=== PATIENT | female | born 1950 | race Caucasian/White ===

== ENCOUNTER → 2016-04-09 | Outpatient (CLI) | payer OTHER ==
[~2016-04-09] MED LIST: ADVIN25/60 INH; ALBU1NEB10 NEB; AMOX500C3 PO; ASPI81TA21 PO; ATOR-26 PO; BACL10TA PO; BUTA30CA12 PO; CHOL1000 PO; CHOL20009 PO; CLC100X PO; CMD5 PO; DIAZ-165 PO; DIPH25CA65 PO; DOCU100C31 PO; ENOX40IN SQ; FLNIN/ NAE; FOLI1TAB7 PO; FRS/40 PO; IPRA1AER2 INH; LEVO112T4 PO; LEVO125T4 PO; LEVO1TAB33 PO; LEVO500T19 PO; LOSA25TA18 PO; MAGN400T6 PO; METO1TAB69 PO; MRLP17X PO; NTRGSL/4 UT; NYSS/ PO; NYSS5 PO; OMEP20CA9 PO; OMEP40CA PO; OMEP40CA41 PO; ONDA4TAB46 PO; POLY335019 PO; POTA20TA16 PO; RIVA1TAB4 PO; TRAM-10 PO; WARF5TAB7 PO; ZINC1CAP PO
[2016-04-09 14:42] LABS: BASO % 0.8 %; BASO ABS # 0.09 K/uL (0-0.2); EOS % 1.4 %; HEMATOCRIT 29.3 % (37-47); IG% 0.2 %; LYMPH % 21.4 %; LYMPH ABS # 2.29 K/uL (1.2-3.4); MEAN CELL VOLUME 80.5 fL (80-100); MEAN CORPUSCULAR HEMOGLOBIN 25.5 pg (25-34); MEAN CORPUSCULAR HGB CONC 31.7 g/dl (32-36); MEAN PLATELET VOLUME 9.9 fL (7.4-10.4); MONO % 7.9 %; NEUT % 68.3 %; PLATELET COUNT 317 K/uL (130-400); RED BLOOD COUNT 3.64 M/uL (4.2-5.4); WHITE BLOOD COUNT 10.71 K/uL (4.8-10.8)
[2016-04-09 15:11] LABS: FERRITIN 13.6 ng/ml (8.0-388.0)
[2016-04-09 15:12] LABS: ACANTHOCYTES 1+; COMPLETE YES; SCHISTOCYTES OCCASIONAL; TARGET CELLS 1+
== END | disposition home or self-care (01) ==
LOC: C.LAB1850 12:47
PROVIDERS: ATTEND Internal Medicine
DX: D64.9 Anemia, unspecified (principal)

== ENCOUNTER → 2016-04-17 | Outpatient (CLI) | payer OTHER ==
--- NOTE | 2016-04-17 15:11 | DIAGNOSTIC IMAGING REPORT ---
CHEST 2 VIEWS ROUTINE CLINICAL HISTORY: Shortness of breath. Cough. COMPARISON STUDY: Chest radiograph January 04, 2015. FINDINGS: There are median sternotomy wires and surgical clips within the mediastinum and upper abdomen. Cardiomediastinal silhouette is stable. Numerous pulmonary nodules and calcified mediastinal lymph nodes are noted. These are unchanged. Small to moderate right and small left pleural effusions are similar to prior exam. There is pulmonary vascular congestion without overt pulmonary edema. IMPRESSION: 1. Small to moderate right and small left pleural effusions, similar to prior exam. 2. Pulmonary vascular congestion without overt pulmonary edema. Electronically signed by: Nguyễn Thacker M.D. 04/17/2016 3:09 PM Dictated Date/Time: 04/17/2016 3:02 PM
[2016-04-17 15:38] LABS: HEMATOCRIT 29.2 % (37-47); MEAN CORPUSCULAR HEMOGLOBIN 24.9 pg (25-34); MEAN CORPUSCULAR HGB CONC 31.2 g/dl (32-36); MEAN PLATELET VOLUME 10.2 fL (7.4-10.4); PLATELET COUNT 329 K/uL (130-400); RED BLOOD COUNT 3.65 M/uL (4.2-5.4); WHITE BLOOD COUNT 13.49 K/uL (4.8-10.8)
== END | disposition home or self-care (01) ==
LOC: C.LAB1850 14:33
PROVIDERS: ATTEND Family Medicine
DX: R06.02 Shortness of breath (principal); R05 Cough; Z11.59 Encounter for screening for other viral diseases; J90 Pleural effusion, not elsewhere classified; R09.89 Other specified symptoms and signs involving the circulatory and respiratory systems

== ENCOUNTER 2016-04-18 16:15 | Inpatient (IN) | payer OTHER ==
[~2016-04-18] VITALS: Ht 157.5 cm; Wt 57.7 kg
[~2016-04-18 16:15] MED LIST changes: -AMOX500C3 PO; -BACL10TA PO; -CHOL1000 PO; -CHOL20009 PO; -CMD5 PO; -DIPH25CA65 PO; -DOCU100C31 PO; -ENOX40IN SQ; -FOLI1TAB7 PO; -LEVO112T4 PO; -LEVO1TAB33 PO; -LEVO500T19 PO; -MAGN400T6 PO; -MRLP17X PO; -NYSS/ PO; -NYSS5 PO; -OMEP40CA PO; -OMEP40CA41 PO; -ONDA4TAB46 PO; -POLY335019 PO; -TRAM-10 PO; -WARF5TAB7 PO; -ZINC1CAP PO
--- NOTE | 2016-04-18 16:58 | EMERGENCY ROOM VISIT NOTE ---
History Report prepared by Jose: Leonel Parada Under the Supervision of: Dr. Vincent Armando M.D. First contact with patient: 16:28 Chief Complaint: WEAKNESS Stated Complaint: FLUID IN BOTH LUNGS,ANEMIA,CHF,WEAKNESS,FATIGUE History of Present Illness The patient is a 65 year old female with a history of CHF who presents to the Emergency Room with complaints of worsening generalized weakness for the past several months. The patient feels tired and feels like she is thinking slowly. The patient also complains of shortness of breath. She denies chest pain or abdominal pain. The patient was seen by her PCP yesterday, where she had unremarkable labs and a chest X-ray. The patient has a history of CHF, CAD, and cancer. She is s/p CABG. She has prescriptions for Xarelto and Lasix. Source of History: patient Onset: several months ago Position: other (generalized) Quality: other (weakness) Timing: worsening Associated Symptoms: + SOB, No abdominal pain, No chest pain Review of Systems See HPI for pertinent positives & negatives. A total of 10 systems reviewed and were otherwise negative. Past Medical & Surgical Medical Problems: (1) Acute myocardial infarction (2) chest pain, right pleural effusion (3) Diab Ene Wo Compl, Type Ii Or Unspec Type, Not Uncntrld (4) Hx-Hodgkin's Disease (5) Hypertension Nos (6) Pulmonary emboli Surgical Problems: (1) Hx of cholecystectomy (2) Hx of heart artery stent (3) Hx of splenectomy Family History Cancer Diabetes mellitus Social History Smoking Status: Current Every Day Smoker Marital Status: Housing Status: lives with family Occupation Status: employed Current/Historical Medications Scheduled Aspirin Enteric Coated (Ecotrin Or Generic), 81 MG PO HS Atorvastatin (Lipitor), 80 MG PO HS Cholecalciferol (Vitamin D3), 1,000 UNITS PO DAILY Docusate Sodium (Colace), 100 MG PO BID Fluticasone Prop/Salmeterol (Advair Diskus 250/50 60 Dose), 1 PUFF INH BID Fluticasone Propionate (Fluticasone Propionate), 2 SPRAYS MORALES DAILY Folic Acid (Folvite), 2 MG PO DAILY Furosemide (Lasix), 40 MG PO QAM Levothyroxine Sodium (Levothyroxine Sodium), 112 MCG PO DAILY Losartan Potassium (Cozaar), 25 MG PO QAM Metoprolol Succ (Toprol Xl) (Toprol-Xl ), 150 MG PO QAM Omeprazole (Prilosec), 40 MG PO DAILY Potassium Ext Rel (Klor-Con), 20 MEQ PO BID Rivaroxaban (Xarelto), 20 MG PO HS Scheduled PRN Albuterol Soln (Ventolin Soln), 1 VIAL NEB QID PRN for Cough or Wheezing Baclofen (Lioresal), 10 MG PO TID PRN for Muscle Spasms Widxcjnqpw-Sxftjns-Wjczawsx W/ (Fiorinal/Codeine #3), 1 CAP PO Q6 PRN for Headache Diazepam (Valium), 5 MG PO TID PRN for Anxiety Ipratropium-Albuterol (Combivent Respimat), 1 PUFF INH QID PRN for Shortness of Breath Nitroglycerin (Nitrostat), 0.4 MG UT UD PRN for Chest Pain Ondansetron Hcl (Zofran), 4 MG PO Q6H PRN for Nausea Tramadol (Ultram), 50 MG PO Q6 PRN for Pain Allergies Coded Allergies: Propantheline (Verified Allergy, Severe, hives and swelling and SOB ( probanthine), 10/09/14) Acetaminophen (Verified Allergy, Unknown, CAN NOT TAKE COMBINATION, ) Atropine (Verified Allergy, Unknown, 10/09/14) BEE STING (Verified Allergy, Unknown, 09/10/14) Cefaclor (Verified Allergy, Unknown, 09/10/14) Cefadroxil (Verified Allergy, Unknown, HIVES AND SWELLING, 09/10/14) Cephalosporins (Verified Allergy, Unknown, CEPHALEXIN, CEFADROXIL(DURICEF) , 09/10/14) Codeine (Verified Allergy, Unknown, CAN NOT TAKE COMBINATION, 09/10/14) Dextromethorphan (Verified Allergy, Unknown, 09/10/14) Diphenoxylate (Verified Allergy, Unknown, 09/10/14) Doxylamine (Verified Allergy, Unknown, 09/10/14) Ethanol (Verified Allergy, Unknown, unknown, 09/10/14) Gold-containing Drug Products (Verified Allergy, Unknown, 09/10/14) Iodine (Verified Allergy, Unknown, 09/10/14) Lidocaine (Verified Allergy, Unknown, WITH DENTAL PROCEDURE MAKES SLEEPY, CAN TAKE OTHER CLARISSA, 09/10/14) Meperidine (Verified Allergy, Unknown, 09/10/14) Morphine (Verified Allergy, Unknown, 09/10/14) Penicillins (Verified Allergy, Unknown, 09/10/14) Pentazocine (Verified Allergy, Unknown, 09/10/14) Propoxyphene (Verified Allergy, Unknown, 09/10/14) Pseudoephedrine (Verified Allergy, Unknown, 09/10/14) SHELLFISH (Verified Allergy, Unknown, 09/10/14) [place] (Verified Allergy, Unknown, 09/10/14) Midazolam (Verified Adverse Reaction, Intermediate, UNCOMFORTABLE MUSCLE SPASMS, 09/10/14) Adhesives (Unverified Adverse Reaction, Unknown, Steri strips blister skin , 09/10/14) Amitriptyline (Verified Adverse Reaction, Unknown, 09/10/14) Succinylcholine (Verified Adverse Reaction, Unknown, 09/10/14) Uncoded Allergies: ANECTIME (Allergy, Unknown, HAD NIECE HAD BAD REACTION AND SHE WAS TOLD NOT TO TAKE, 09/10/14) DEMEROL (Allergy, Unknown, SWELLING, 10/09/14) Physical Exam Vital Signs Date Time Temp Pulse Resp B/P Pulse Ox O2 Delivery O2 Flow Rate FiO2 04/18/16 18:20 88 24 134/71 94 Room Air 04/18/16 17:57 95 Room Air 04/18/16 17:41 95 117/50 96 Room Air 95 130/90 97 110/41 04/18/16 17:06 94 04/18/16 16:47 95 Room Air 04/18/16 16:42 95 Room Air 04/18/16 16:24 36.8 95 18 96/59 95 Room Air Physical Exam CONSTITUTIONAL: Mild respiratory distress. HEENT: No icterus, moist mucous membranes NECK: No meningismus, trachea is midline. CARDIOVASCULAR: Regular rate, normal perfusion RESPIRATORY: Unlabored breathing. Bibasilar rales. GASTROINTESTINAL: Non-tender GENITOURINARY: No flank tenderness MUSCULOSKELETAL: Full range of motion. No pedal edema. NEUROLOGIC: No acute gross focal deficits. PSYCHIATRIC: Normal affect SKIN: Normal for ethnicity. Medical Decision & Procedures ER Provider Diagnostic Interpretation: X-ray results as stated below per my interpretation and radiologist interpretation. Other radiology results as stated below per my review and radiologist interpretation. CHEST ONE VIEW PORTABLE CLINICAL HISTORY: Dyspnea. COMPARISON STUDY: Chest radiograph April 17, 2016. FINDINGS: No pneumothorax is present. Bilateral pleural effusions right larger left, persist. Calcified nodules within the lungs are noted. There are median sternotomy wires and surgical clips within the mediastinum and upper abdomen. There is pulmonary vascular congestion with possible mild pulmonary edema. IMPRESSION: 1. Moderate right and small left pleural effusions. 2. Pulmonary vascular congestion with suspected mild pulmonary edema. Electronically signed by: Nguyễn Thacker M.D. 04/18/2016 5:30 PM Dictated Date/Time: 04/18/2016 5:29 PM Laboratory Results 04/18/16 16:50 Red Blood Count 3.54, Mean Corpuscular Volume 79.1, Mean Corpuscular Hemoglobin 25.1, Mean Corpuscular Hemoglobin Concent 31.8, Mean Platelet Volume 10.0, Neutrophils (%) (Auto) 78.7, Lymphocytes (%) (Auto) 12.3, Monocytes (%) (Auto) 7.7, Eosinophils (%) (Auto) 0.6, Basophils (%) (Auto) 0.5, Neutrophils # (Auto) 10.05, Lymphocytes # (Auto) 1.58, Monocytes # (Auto) 0.99, Eosinophils # (Auto) 0.08, Basophils # (Auto) 0.07 04/18/16 16:50 Test 04/18/16 16:50 04/18/16 16:54 04/18/16 18:00 04/18/16 18:14 White Blood Count 12.80 K/uL (4.8-10.8) Red Blood Count 3.54 M/uL (4.2-5.4) Hemoglobin 8.9 g/dL (12.0-16.0) Hematocrit 28.0 % (37-47) Mean Corpuscular Volume 79.1 fL (80-100) Mean Corpuscular Hemoglobin 25.1 pg (25-34) Mean Corpuscular Hemoglobin Concent 31.8 g/dl (32-36) Platelet Count 343 K/uL (130-400) Mean Platelet Volume 10.0 fL (7.4-10.4) Neutrophils (%) (Auto) 78.7 % Lymphocytes (%) (Auto) 12.3 % Monocytes (%) (Auto) 7.7 % Eosinophils (%) (Auto) 0.6 % Basophils (%) (Auto) 0.5 % Neutrophils # (Auto) 10.05 K/uL (1.4-6.5) Lymphocytes # (Auto) 1.58 K/uL (1.2-3.4) Monocytes # (Auto) 0.99 K/uL (0.11-0.59) Eosinophils # (Auto) 0.08 K/uL (0-0.5) Basophils # (Auto) 0.07 K/uL (0-0.2) RDW Standard Deviation 50.8 fL (36.4-46.3) RDW Coefficient of Variation 17.6 % (11.5-14.5) Immature Granulocyte % (Auto) 0.2 % Immature Granulocyte # (Auto) 0.03 K/uL (0.00-0.02) Nucleated RBC Absolute Count (auto) 0.02 K/uL (0-0) Nucleated Red Blood Cells % 0.2 % Hypochromasia PRESENT Poikilocytosis PRESENT Target Cells 1+ Acanthocytes 1+ Schistocytes 1+ Prothrombin Time 14.4 SECONDS (9.0-12.0) Prothromb Time International Ratio 1.3 (0.9-1.1) Activated Partial Thromboplast Time 29.9 SECONDS (21.0-31.0) Partial Thromboplastin Ratio 1.2 Anion Gap 9.0 mmol/L (3-11) Est Creatinine Clear Calc Drug Dose 88.8 ml/min Estimated GFR () 114.9 Estimated GFR (Non- 99.1 BUN/Creatinine Ratio 23.3 (10-20) Calcium Level 9.1 mg/dl (8.5-10.1) Magnesium Level 2.1 mg/dl (1.8-2.4) Troponin I < 0.015 ng/ml (0-0.045) Pro-B-Type Natriuretic Peptide 1707 pg/ml (0-900) Labs reviewed by ED physician. ECG Indication: SOB/dyspnea Rate (beats per minute): 93 Rhythm: sinus rhythm Findings: LBBB, nonspecific-ST abn ED Course 1630: The patient was evaluated by the [place] medical student. 1647: Past medical records reviewed. The patient was evaluated in room C4. A complete history and physical examination was performed. 1810: Updated the patient. She is doing well. 1814: Discussed the case with Dr. Guzman [facility]. The patient will be evaluated. Medical Decision Differential diagnosis: CHF, viral syndrome, PE. 65-year-old presented to the emergency department for evaluation of several months of progressive worsening dyspnea, especially with exertion. She is noted to have bibasilar rales x-ray remarkable for moderate pleural effusions. Patient also noted to be anemic with elevated BNP in context of normal creatinine. Admission arrangements with Dr. Stark. Consults Time Called: 1809 Consulting Physician: Dr. Guzman [facility] Returned Call: 1814 1814: Discussed the case [facility] The patient will be evaluated. Impression Primary Impression: Pleural effusion Additional Impressions: CHF (congestive heart failure) Dyspnea Scribe Attestation The scribe's documentation has been prepared under my direction and personally reviewed by me in its entirety. I confirm that the note above accurately reflects all work, treatment, procedures, and medical decision making performed by me. Departure Information Dispostion Being Evaluated By Hospitalist Referrals Saulo Arthur M.D. (PCP) Patient Instructions My [facility] Health Problem Qualifiers
[2016-04-18 17:26] LABS: BASO % 0.5 %; BASO ABS # 0.07 K/uL (0-0.2); EOS % 0.6 %; IG% 0.2 %; LYMPH % 12.3 %; LYMPH ABS # 1.58 K/uL (1.2-3.4); MEAN CELL VOLUME 79.1 fL (80-100); MEAN CORPUSCULAR HEMOGLOBIN 25.1 pg (25-34); MEAN CORPUSCULAR HGB CONC 31.8 g/dl (32-36); MONO % 7.7 %; NEUT % 78.7 %; PLATELET COUNT 343 K/uL (130-400); RED BLOOD COUNT 3.54 M/uL (4.2-5.4)
--- NOTE | 2016-04-18 17:32 | DIAGNOSTIC IMAGING REPORT ---
CHEST ONE VIEW PORTABLE CLINICAL HISTORY: Dyspnea. COMPARISON STUDY: Chest radiograph April 17, 2016. FINDINGS: No pneumothorax is present. Bilateral pleural effusions right larger left, persist. Calcified nodules within the lungs are noted. There are median sternotomy wires and surgical clips within the mediastinum and upper abdomen. There is pulmonary vascular congestion with possible mild pulmonary edema. IMPRESSION: 1. Moderate right and small left pleural effusions. 2. Pulmonary vascular congestion with suspected mild pulmonary edema. Electronically signed by: Nguyễn Thacker M.D. 04/18/2016 5:30 PM Dictated Date/Time: 04/18/2016 5:29 PM
[2016-04-18 17:34] LABS: BLOOD UREA NITROGEN 13 mg/dl (7-18); BUN/CREATININE RATIO 23.3 (10-20); CALCIUM 9.1 mg/dl (8.5-10.1); CARBON DIOXIDE 27 mmol/L (21-32); CHLORIDE 100 mmol/L (98-107); CREATININE 0.55 mg/dl (0.60-1.20); GLUCOSE 115 mg/dl (70-99); MAGNESIUM 2.1 mg/dl (1.8-2.4); POTASSIUM 3.9 mmol/L (3.5-5.1); SODIUM 136 mmol/L (136-145)
[2016-04-18 17:41] LABS: INR 1.3 (0.9-1.1); PARTIAL THROMBOPLASTIN RATIO 1.2; PROTHROMBIN TIME (PATIENT) 14.4 SECONDS (9.0-12.0)
[2016-04-18 17:53] LABS: ACANTHOCYTES 1+; COMPLETE YES; HYPOCHROMIA PRESENT; POIKILOCYTOSIS PRESENT; SCHISTOCYTES 1+; TARGET CELLS 1+
[2016-04-18] MEDS ORDERED: CHOL1000 PO (18:09)
[2016-04-18] MEDS ORDERED: OMEP40CA PO (18:09)
[2016-04-18] MEDS ORDERED: FOLI1TAB7 PO (18:09)
[2016-04-18] MEDS ORDERED: BACL10TA PO (18:09)
[2016-04-18] MEDS ORDERED: ONDA4TAB46 PO (18:09)
[2016-04-18] MEDS ORDERED: LEVO112T4 PO (18:09)
[2016-04-18] MEDS ORDERED: TRAM-10 PO (18:09)
[2016-04-18 18:59] LABS: URINE APPEARANCE TURBID (CLEAR); URINE BILIRUBIN NEG (NEG); URINE COLOR DK YELLOW; URINE EPITHELIAL CELL AUTO 20-30 /lpf (0-5); URINE NITRITE NEG (NEG); URINE SPECIFIC GRAVITY 1.032 (1.000-1.030); UROBILINOGEN NEG (NEG); ZZUR CULT IF INDIC CLEAN CATCH NO
[2016-04-18 19:04] LABS: MANUAL MICROSCOPIC REQUIRED? NO; REVIEW REQ? YES
[2016-04-18 19:04] LABS: ALKALINE PHOSPHATASE 113 U/L (45-117); ALT/SGPT 24 U/L (12-78); AST/SGOT 21 U/L (15-37); TOTAL IRON BINDING CAPACITY 330 mcg/dl (250-450)
[2016-04-18] MEDS ORDERED: NSS + 20MEQ KCL 1000ML 1,000 ML IV SCH (19:33)
[2016-04-18] MEDS ORDERED: IPRATROPIUM BROMIDE/ALBUTEROL respimat INH INH PRN (19:45)
[2016-04-18] MEDS ORDERED: NITROGLYCERIN 0.4 MG SL PER TAB CHARGE SL PRN (19:45)
[2016-04-18] MEDS ORDERED: NITROGLYCERIN 0.4 MG SL PER TAB CHARGE UT PRN (19:45)
[2016-04-18] MEDS ORDERED: LORAZEPAM 2 MG/ML 1 ML VIAL IV PRN (19:45)
[2016-04-18] MEDS ORDERED: PANTOprazole INJ 80 MG in DEXTROSE 5% 100ML IV SCH (19:45)
[2016-04-18] MEDS ORDERED: ZOLPIDEM TARTRATE 5 MG TAB PO PRN (19:45)
[2016-04-18] MEDS ORDERED: PROMETHAZINE HCL INJ 12.5 MG in SODIUM CHLORIDE 0.9% 50ML 50 ML IV PRN (19:45)
[2016-04-18 20:09] LABS: BENZODIAZEPINE, URINE NEG (NEG); COCAINE,URINE NEG (NEG); PHENCYCLIDINE, URINE NEG (NEG)
[2016-04-18] MEDS: PANTOprazole INJ 40 MG in DEXTROSE 5% 100ML IV SCH ×2 (20:15→23:56)
[2016-04-18 20:49] LABS: HEMATOCRIT 26.6 % (37-47)
[2016-04-18] MEDS ORDERED: PHYTONADIONE INJ 5 MG in SODIUM CHLORIDE 0.9% 50ML 50 ML IV ONE (21:00)
[2016-04-18 21:30] VITALS: BP 132/69; PULSE 93; TEMP 37; O2SAT 94; Ht 157.5 cm; Wt 57.7 kg
[2016-04-18] MEDS ORDERED: ALBUMIN 25% 50 ML with FUROSEMIDE INJ 40 MG IV ONE ×2 (21:30)
--- NOTE | 2016-04-18 22:28 | History and Physical ---
History & Physical Date & Time of Service: Apr 18, 2016 at 22:06 Chief Complaint: Pleural Effusion, Upper Gi Bleed Primary Care Physician: Saulo Arthur M.D. History of Present Illness Source: patient, friend The patient is a 65 year old female who is generally worsening weakness and fatigue, shortness of breath, decline in mental acuity, swelling in bilateral lower extremities, and heart racing over the past few months, but in particular over the past few weeks. She's also recently noticed bringing up bile colored material from her stomach. She has a known history of CHF, and is taking aspirin and Xarelto daily. Past Medical/Surgical History Medical Problems: (1) Acute myocardial infarction Status: Resolved (2) chest pain, right pleural effusion Status: Resolved (3) Diab Ene Wo Compl, Type Ii Or Unspec Type, Not Uncntrld Status: Chronic (4) Hx-Hodgkin's Disease Status: Chronic (5) Hypertension Nos Status: Chronic (6) Pulmonary emboli Status: Resolved Surgical Problems: (1) Hx of cholecystectomy Status: Resolved (2) Hx of heart artery stent Status: Resolved (3) Hx of splenectomy Status: Resolved Family History Cancer Diabetes mellitus Social History Smoking Status: Current Every Day Smoker Smokeless Tobacco Use: No Alcohol Use: none Drug Use: none Marital Status: Housing status: lives with family Occupational Status: employed Immunizations History of Influenza Vaccine: Yes Influenza Vaccine Date: Jan 13, 2013 History of Tetanus Vaccine?: Yes Tetanus Immunization Date: Nov 13, 2009 History of Pneumococcal: Yes Pneumococcal Date: Jan 13, 2007 History of Hepatitis B Vaccine: Unknown Multi-Drug Resistant Organisms History of MDRO: No Allergies Coded Allergies: Propantheline (Verified Allergy, Severe, hives and swelling and SOB ( probanthine), 10/09/14) Acetaminophen (Verified Allergy, Unknown, CAN NOT TAKE COMBINATION, ) Atropine (Verified Allergy, Unknown, 10/09/14) BEE STING (Verified Allergy, Unknown, 09/10/14) Cefaclor (Verified Allergy, Unknown, 09/10/14) Cefadroxil (Verified Allergy, Unknown, HIVES AND SWELLING, 09/10/14) Cephalosporins (Verified Allergy, Unknown, CEPHALEXIN, CEFADROXIL(DURICEF) , 09/10/14) Codeine (Verified Allergy, Unknown, CAN NOT TAKE COMBINATION, 09/10/14) Dextromethorphan (Verified Allergy, Unknown, 09/10/14) Diphenoxylate (Verified Allergy, Unknown, 09/10/14) Doxylamine (Verified Allergy, Unknown, 09/10/14) Ethanol (Verified Allergy, Unknown, unknown, 09/10/14) Gold-containing Drug Products (Verified Allergy, Unknown, 09/10/14) Iodine (Verified Allergy, Unknown, 09/10/14) Lidocaine (Verified Allergy, Unknown, WITH DENTAL PROCEDURE MAKES SLEEPY, CAN TAKE OTHER CLARISSA, 09/10/14) Meperidine (Verified Allergy, Unknown, SWELLING, 04/18/16) Morphine (Verified Allergy, Unknown, 09/10/14) Penicillins (Verified Allergy, Unknown, 09/10/14) Pentazocine (Verified Allergy, Unknown, 09/10/14) Propoxyphene (Verified Allergy, Unknown, 09/10/14) Pseudoephedrine (Verified Allergy, Unknown, 09/10/14) Shellfish (Verified Allergy, Unknown, 09/10/14) [place] (Verified Allergy, Unknown, 09/10/14) Midazolam (Verified Adverse Reaction, Intermediate, UNCOMFORTABLE MUSCLE SPASMS, 09/10/14) Adhesives (Unverified Adverse Reaction, Unknown, Steri strips blister skin , 09/10/14) Amitriptyline (Verified Adverse Reaction, Unknown, 09/10/14) Succinylcholine (Verified Adverse Reaction, Unknown, SEE COMMENTS, 04/18/16 ) PER UNCODED ALLERGY INFO: HAD NIECE HAD BAD REACTION AND SHE WAS TOLD NOT TO TAKE Home Medications Scheduled Aspirin Enteric Coated (Ecotrin Or Generic), 81 MG PO HS Atorvastatin (Lipitor), 80 MG PO HS Cholecalciferol (Vitamin D3), 1,000 UNITS PO DAILY Docusate Sodium (Colace), 100 MG PO BID Fluticasone Prop/Salmeterol (Advair Diskus 250/50 60 Dose), 1 PUFF INH BID Fluticasone Propionate (Fluticasone Propionate), 2 SPRAYS MORALES DAILY Folic Acid (Folvite), 2 MG PO DAILY Furosemide (Lasix), 40 MG PO QAM Levothyroxine Sodium (Levothyroxine Sodium), 112 MCG PO DAILY Losartan Potassium (Cozaar), 25 MG PO QAM Metoprolol Succ (Toprol Xl) (Toprol-Xl ), 150 MG PO QAM Omeprazole (Prilosec), 40 MG PO DAILY Potassium Ext Rel (Klor-Con), 20 MEQ PO BID Rivaroxaban (Xarelto), 20 MG PO HS Scheduled PRN Albuterol Soln (Ventolin Soln), 1 VIAL NEB QID PRN for Cough or Wheezing Baclofen (Lioresal), 10 MG PO TID PRN for Muscle Spasms Iwlxfdjhnq-Hpeuixs-Kboogncl W/ (Fiorinal/Codeine #3), 1 CAP PO Q6 PRN for Headache Diazepam (Valium), 5 MG PO TID PRN for Anxiety Ipratropium-Albuterol (Combivent Respimat), 1 PUFF INH QID PRN for Shortness of Breath Nitroglycerin (Nitrostat), 0.4 MG UT UD PRN for Chest Pain Ondansetron Hcl (Zofran), 4 MG PO Q6H PRN for Nausea Tramadol (Ultram), 50 MG PO Q6 PRN for Pain Review of Systems The patient denies vision change, hearing change, sore throat, fevers, chills, sweats, abdominal pain, pelvic pain, blood in urine or stool, dysuria, urinary frequency or urgency, headache, rash, abnormal bruising , imbalance, focal weakness, numbness or tingling in arms or legs, arthralgias or myalgias, back or neck pain, night sweats. The review of systems is otherwise negative other than for that already noted above, and at least 10 systems have been reviewed. Physical Exam Vital Signs Date Time Temp Pulse Resp B/P Pulse Ox O2 Delivery O2 Flow Rate FiO2 04/18/16 21:30 37.0 93 26 132/69 94 Room Air 04/18/16 19:59 91 16 128/65 93 Room Air 04/18/16 18:20 88 24 134/71 94 Room Air 04/18/16 17:57 95 Room Air 04/18/16 17:41 95 117/50 96 Room Air 95 130/90 97 110/41 04/18/16 17:06 94 04/18/16 16:47 95 Room Air 04/18/16 16:42 95 Room Air 04/18/16 16:24 36.8 95 18 96/59 95 Room Air The patient is awake, alert and oriented 3, normocephalic and atraumatic, lying in bed and in no acute distress. HEENT--PERRL, EOMI, mucous membranes moist, and oropharynx normal. Neck--supple, no JVD or bruits, thyroid normal, trachea midline, no adenopathy. Heart--normal S1 and S2, no extra beats, no murmurs, rubs or gallops. Lungs--decreased breath sounds at the bases bilaterally, no respiratory distress , no accessory muscle use. Abdomen--normal bowel sounds and soft, nontender and nondistended, no hernias or masses, no organomegaly. Extremities--no cyanosis, clubbing. There is bilaterally 2+ pitting Edema. There are good distal pulses b/l. Dermatologic--normal skin turgor, normal color, warm and dry, no abnormal lymph nodes, no rash. Neurologic--cranial nerves II through XII grossly intact. Psychiatric--normal affect. Diagnostics Laboratory Results Results Past 24 Hours Test 04/18/16 16:50 04/18/16 17:30 04/18/16 19:17 04/18/16 19:40 Range/Units White Blood Count 12.80 4.8-10.8 K/uL Red Blood Count 3.54 4.2-5.4 M/uL Hemoglobin 8.9 12.0-16.0 g/dL Hematocrit 28.0 37-47 % Mean Corpuscular Volume 79.1 80-100 fL Mean Corpuscular Hemoglobin 25.1 25-34 pg Mean Corpuscular Hemoglobin Concent 31.8 32-36 g/dl Platelet Count 343 130-400 K/uL Mean Platelet Volume 10.0 7.4-10.4 fL Neutrophils (%) (Auto) 78.7 % Lymphocytes (%) (Auto) 12.3 % Monocytes (%) (Auto) 7.7 % Eosinophils (%) (Auto) 0.6 % Basophils (%) (Auto) 0.5 % Neutrophils # (Auto) 10.05 1.4-6.5 K/uL Lymphocytes # (Auto) 1.58 1.2-3.4 K/uL Monocytes # (Auto) 0.99 0.11-0.59 K/uL Eosinophils # (Auto) 0.08 0-0.5 K/uL Basophils # (Auto) 0.07 0-0.2 K/uL RDW Standard Deviation 50.8 36.4-46.3 fL RDW Coefficient of Variation 17.6 11.5-14.5 % Immature Granulocyte % (Auto) 0.2 % Immature Granulocyte # (Auto) 0.03 0.00-0.02 K/uL Nucleated RBC Absolute Count (auto) 0.02 0-0 K/uL Nucleated Red Blood Cells % 0.2 % Hypochromasia PRESENT Poikilocytosis PRESENT Target Cells 1+ Acanthocytes 1+ Schistocytes 1+ Absolute Reticulocyte Count 0.07 0.02-0.10 10^6/uL Percent Reticulocyte Count 2.1 0.5-2.0 % Prothrombin Time 14.4 9.0-12.0 SECONDS Prothromb Time International Ratio 1.3 0.9-1.1 Activated Partial Thromboplast Time 29.9 21.0-31.0 SECONDS Partial Thromboplastin Ratio 1.2 Sodium Level 136 136-145 mmol/L Potassium Level 3.9 3.5-5.1 mmol/L Chloride Level 100 98-107 mmol/L Carbon Dioxide Level 27 21-32 mmol/L Anion Gap 9.0 3-11 mmol/L Blood Urea Nitrogen 13 7-18 mg/dl Creatinine 0.55 0.60-1.20 mg/dl Est Creatinine Clear Calc Drug Dose 88.8 ml/min Estimated GFR () 114.9 Estimated GFR (Non- 99.1 BUN/Creatinine Ratio 23.3 10-20 Random Glucose 115 70-99 mg/dl Calcium Level 9.1 8.5-10.1 mg/dl Magnesium Level 2.1 1.8-2.4 mg/dl Iron Level 14 35-150 mcg/dl Total Iron Binding Capacity 330 250-450 mcg/dl Total Bilirubin 0.4 0.2-1 mg/dl Direct Bilirubin 0.1 0-0.2 mg/dl Aspartate Amino Transf (AST/SGOT) 21 15-37 U/L Alanine Aminotransferase (ALT/SGPT) 24 12-78 U/L Alkaline Phosphatase 113 45-117 U/L Troponin I < 0.015 < 0.015 0-0.045 ng/ml Pro-B-Type Natriuretic Peptide 1707 0-900 pg/ml Total Protein 7.5 6.4-8.2 gm/dl Albumin 3.0 3.4-5.0 gm/dl Urine Color DK YELLOW Urine Appearance TURBID CLEAR Urine pH 6.0 4.5-7.5 Urine Specific [place] 1.032 1.000-1.030 Urine Protein NEG NEG Urine Glucose (UA) NEG NEG Urine Ketones TRACE NEG Urine Occult Blood NEG NEG Urine Nitrite NEG NEG Urine Bilirubin NEG NEG Urine Urobilinogen NEG NEG Urine Leukocyte Esterase NEG NEG Urine WBC (Auto) 1-5 0-5 /hpf Urine RBC (Auto) 0-4 0-4 /hpf Urine Hyaline Casts (Auto) 1-5 0-5 /lpf Urine Epithelial Cells (Auto) 20-30 0-5 /lpf Urine Bacteria (Auto) NEG NEG Urine Crystals AMORPHOUS SEDIMENT NONE PRSENT Total Creatine Kinase 86 26-192 U/L Creatine Kinase MB 2.6 0.5-3.6 ng/ml Creatine Kinase MB Ratio 3.0 0-3.0 Urine Opiates Screen NEG NEG Urine Methadone, Qualitative NEG NEG Urine Barbiturates NEG NEG Urine Phencyclidine (PCP) Level NEG NEG Ur Amphetamine/Methamphetamine NEG NEG MDMA (Ecstasy) Screen NEG NEG Urine Benzodiazepines Screen NEG NEG Urine Cocaine Metabolite NEG NEG Urine Marijuana (THC) NEG NEG Test 04/18/16 20:35 Range/Units Hemoglobin 8.4 12.0-16.0 g/dL Hematocrit 26.6 37-47 % EKG EKG shows normal sinus rhythm with first-degree heart block, left bundle branch block, and early ST depressions in the lateral chest leads. Impression Assessment and Plan CAD/hypertension/history of acute [place]/history of CHF with moderately large pleural effusion on the right side and mild pleural effusion on the left side, with worsening lower extremity edema--the patient will be admitted to the telemetry unit for serial cardiac enzymes, cardiac rhythm monitoring, and a 2-D echocardiogram with Dopplers. His symptoms are likely secondary to or at least exacerbated by anemia. She'll be given albumin 25 g with Lasix 40 mg IV 1 tonight, and will consult pulmonology for consideration of thoracentesis for the a.m.. Hold aspirin 81 mg by mouth at bedtime, furosemide 40 mg by mouth every morning, losartan potassium 25 mg by mouth every morning, metoprolol succinate 150 mg by mouth every morning, potassium chloride extended release 20 mEq by mouth twice a day and Xarelto 20 mg by mouth at bedtime. She'll be placed on Lopressor 5 mg IV every 4 hours with hold for heart rate less than 60 or systolic blood pressure less than 130. GERD/Anemia with symptoms of upper GI bleed with a decrease in hemoglobin of about 3-1/2 g over the past year--the patient will be admitted to the telemetry unit, and made nothing by mouth status. She'll be placed on Protonix bolus and then drip, H&H's every 6 hours, normal saline with potassium chloride 20 mEq at 100 mils per hour, and GI consult.. We will hold her usual omeprazole 40 mg by mouth daily. Pulmonary emboli history--for now hold Xarelto as noted above. COPD--continue Advair Diskus 250/50 one inhalation twice a day, Combivent restroom at 1 puff 4 times a day when necessary, and albuterol nebulizers 4 times a day when necessary. Allergy--continue Flonase 2 sprays each nostril daily. Hypercholesterolemia--for now hold atorvastatin 80 mg by mouth at bedtime. Hypothyroidism--change levothyroxine sodium 112 g by mouth daily to 56 g IV daily. Level of Care Telemetry Advanced Directives Existing Advance Directive: No Existing Living Will: No Existing Power of Costume Designer: No Resuscitation Status FULL RESUSCITATION VTE Prophylaxis VTE Risk Assessment Done? Y/N: Yes Risk Level: Moderate Given or contraindicated: SCD's
[2016-04-18 22:30] VITALS: BP 120/68; PULSE 84; TEMP 36.8; O2SAT 97
[2016-04-18] MEDS: FLUTICASONE/SALMETEROL 250/50 (ADVAIR) 14 PUFF/1 INHALER INH SCH (22:41)
[2016-04-18 22:45] VITALS: BP 120/71; PULSE 94; TEMP 36.8; O2SAT 98
--- NOTE | 2016-04-18 22:56 | Gastroenterology Progress Note ---
Progress Note Date of Service: Apr 18, 2016 Medications Current Inpatient Medications Medications (Trade) Dose Ordered Sig/Keon Route Start Time Stop Time Status Last Admin Dose Admin Pantoprazole Sodium/Dextrose (Protonix Inj/D5 100ml) 100 ml @ 20 mls/hr Q5H IV 04/18/16 20:00 05/18/16 19:59 04/18/16 20:15 20 MLS/HR Lorazepam (Ativan Inj) 0.5 mg Q4H PRN IV 04/18/16 19:45 05/18/16 19:44 Diphenhydramine HCl 25 mg 25 mg Q4H PRN IV 04/18/16 19:45 05/18/16 19:44 Promethazine HCl/ Sodium Chloride (Phenergan Inj/ Nss 50ml) 50.5 ml @ 202 mls/hr Q4H PRN IV 04/18/16 19:45 05/18/16 19:44 Zolpidem Tartrate (Ambien Tab) 5 mg HSZ PRN PO 04/18/16 19:45 05/18/16 19:44 Ondansetron HCl (Zofran Inj) 4 mg Q6H PRN IV 04/18/16 19:45 05/18/16 19:44 Salmeterol Xinafoate/ Fluticasone (Advair Diskus 250/50 Inh) 1 puff BID INH 04/18/16 21:00 05/18/16 20:59 Fluticasone Propionate (Flonase Nasal [place]) 2 sprays DAILY MORALES 04/19/16 09:00 05/19/16 08:59 Albuterol/ Ipratropium (Combivent Respimat Inh) 1 puffs QID PRN INH 04/18/16 19:45 05/18/16 19:44 Nitroglycerin 0.4 mg 0.4 mg UD PRN UT 04/18/16 19:45 05/18/16 19:44 Levothyroxine Sodium/Syringe (Synthroid Inj/ Syringe) 2.8 ml @ 2 mls/min DAILY@09 IV 04/19/16 09:00 05/19/16 08:59 Metoprolol Tartrate (Lopressor Iv) 5 mg Q4 IV. 04/19/16 00:00 05/19/16 00:00 Objective Vital Signs Date Time Temp Pulse Resp B/P Pulse Ox O2 Delivery O2 Flow Rate FiO2 04/18/16 21:30 37.0 93 26 132/69 94 Room Air 04/18/16 19:59 91 16 128/65 93 Room Air 04/18/16 18:20 88 24 134/71 94 Room Air 04/18/16 17:57 95 Room Air 04/18/16 17:41 95 117/50 96 Room Air 95 130/90 97 110/41 04/18/16 17:06 94 04/18/16 16:47 95 Room Air 04/18/16 16:42 95 Room Air 04/18/16 16:24 36.8 95 18 96/59 95 Room Air Laboratory Results Last 24 Hours Test 04/18/16 16:50 04/18/16 17:30 04/18/16 19:17 04/18/16 19:40 White Blood Count 12.80 K/uL Red Blood Count 3.54 M/uL Hemoglobin 8.9 g/dL Hematocrit 28.0 % Mean Corpuscular Volume 79.1 fL Mean Corpuscular Hemoglobin 25.1 pg Mean Corpuscular Hemoglobin Concent 31.8 g/dl Platelet Count 343 K/uL Mean Platelet Volume 10.0 fL Neutrophils (%) (Auto) 78.7 % Lymphocytes (%) (Auto) 12.3 % Monocytes (%) (Auto) 7.7 % Eosinophils (%) (Auto) 0.6 % Basophils (%) (Auto) 0.5 % Neutrophils # (Auto) 10.05 K/uL Lymphocytes # (Auto) 1.58 K/uL Monocytes # (Auto) 0.99 K/uL Eosinophils # (Auto) 0.08 K/uL Basophils # (Auto) 0.07 K/uL RDW Standard Deviation 50.8 fL RDW Coefficient of Variation 17.6 % Immature Granulocyte % (Auto) 0.2 % Immature Granulocyte # (Auto) 0.03 K/uL Nucleated RBC Absolute Count (auto) 0.02 K/uL Nucleated Red Blood Cells % 0.2 % Hypochromasia PRESENT Poikilocytosis PRESENT Target Cells 1+ Acanthocytes 1+ Schistocytes 1+ Absolute Reticulocyte Count 0.07 10^6/uL Percent Reticulocyte Count 2.1 % Prothrombin Time 14.4 SECONDS Prothromb Time International Ratio 1.3 Activated Partial Thromboplast Time 29.9 SECONDS Partial Thromboplastin Ratio 1.2 Sodium Level 136 mmol/L Potassium Level 3.9 mmol/L Chloride Level 100 mmol/L Carbon Dioxide Level 27 mmol/L Anion Gap 9.0 mmol/L Blood Urea Nitrogen 13 mg/dl Creatinine 0.55 mg/dl Est Creatinine Clear Calc Drug Dose 88.8 ml/min Estimated GFR () 114.9 Estimated GFR (Non- 99.1 BUN/Creatinine Ratio 23.3 Random Glucose 115 mg/dl Calcium Level 9.1 mg/dl Magnesium Level 2.1 mg/dl Iron Level 14 mcg/dl Total Iron Binding Capacity 330 mcg/dl Total Bilirubin 0.4 mg/dl Direct Bilirubin 0.1 mg/dl Aspartate Amino Transf (AST/SGOT) 21 U/L Alanine Aminotransferase (ALT/SGPT) 24 U/L Alkaline Phosphatase 113 U/L Troponin I < 0.015 ng/ml < 0.015 ng/ml Pro-B-Type Natriuretic Peptide 1707 pg/ml Total Protein 7.5 gm/dl Albumin 3.0 gm/dl Urine Color DK YELLOW Urine Appearance TURBID Urine pH 6.0 Urine Specific [place] 1.032 Urine Protein NEG Urine Glucose (UA) NEG Urine Ketones TRACE Urine Occult Blood NEG Urine Nitrite NEG Urine Bilirubin NEG Urine Urobilinogen NEG Urine Leukocyte Esterase NEG Urine WBC (Auto) 1-5 /hpf Urine RBC (Auto) 0-4 /hpf Urine Hyaline Casts (Auto) 1-5 /lpf Urine Epithelial Cells (Auto) 20-30 /lpf Urine Bacteria (Auto) NEG Urine Crystals AMORPHOUS SEDIMENT Total Creatine Kinase 86 U/L Creatine Kinase MB 2.6 ng/ml Creatine Kinase MB Ratio 3.0 Urine Opiates Screen NEG Urine Methadone, Qualitative NEG Urine Barbiturates NEG Urine Phencyclidine (PCP) Level NEG Ur Amphetamine/Methamphetamine NEG MDMA (Ecstasy) Screen NEG Urine Benzodiazepines Screen NEG Urine Cocaine Metabolite NEG Urine Marijuana (THC) NEG Test 04/18/16 20:35 Hemoglobin 8.4 g/dL Hematocrit 26.6 % Assessment and Plan GI Consult dictated Microcytic anemia--Fe low but TIBC pending but looks preliminarily to be Fe deficiency. Check B12 and folate also. Pt states has significant nose bleeds with clots coming out on a daily basis so that could be etiology.Stool hemoccult pending but no report of gross blood per rectum nor melena no coffee ground or bloody emesis. Occult GI bleed is possible but until CHF resolved would not do any scopes N/V--recently and this could represent PUD. She was scheduled for outpt EGD at [facility] not sure which physician. Consider EGD when CHF managed. GERD--PPI Epistaxis--per hospitalist
[2016-04-18] MEDS: METOPROLOL TARTRATE 1 MG/ML VIAL IV. SCH (23:54)
[2016-04-18 23:59] VITALS: O2SAT 98
[2016-04-19] VITALS (16 sets, daily range): BP systolic 83–126; BP diastolic 41–69; PULSE 87–109; TEMP 36.4–37.1; O2SAT 90–99
[2016-04-19 02:06] LABS: HEMATOCRIT 27.9 % (37-47)
[2016-04-19] MEDS ORDERED: NURSING VERBAL MED ORDER ONE (02:30)
[2016-04-19] MEDS ORDERED: TRAMADOL HCL 50 MG TAB PO ONE (02:45)
[2016-04-19 03:40] LABS: INR 1.2 (0.9-1.1); PARTIAL THROMBOPLASTIN RATIO 1.1; PROTHROMBIN TIME (PATIENT) 13.3 SECONDS (9.0-12.0)
[2016-04-19 03:49] LABS: ALT/SGPT 22 U/L (12-78); AST/SGOT 20 U/L (15-37); BLOOD UREA NITROGEN 10 mg/dl (7-18); BUN/CREATININE RATIO 17.5 (10-20); CALCIUM 8.7 mg/dl (8.5-10.1); CARBON DIOXIDE 30 mmol/L (21-32); CHLORIDE 100 mmol/L (98-107); CREATININE 0.56 mg/dl (0.60-1.20); GLUCOSE 102 mg/dl (70-99); MAGNESIUM 1.9 mg/dl (1.8-2.4); POTASSIUM 3.7 mmol/L (3.5-5.1); SODIUM 138 mmol/L (136-145)
[2016-04-19] MEDS: METOPROLOL TARTRATE 1 MG/ML VIAL IV. SCH ×5 (04:00→20:00)
[2016-04-19 04:06] LABS: ALB/GLOB RATIO 0.8 (0.9-2); ALKALINE PHOSPHATASE 100 U/L (45-117); CKMB/CK RATIO 2.8 (0-3.0)
[2016-04-19] MEDS: PANTOprazole INJ 40 MG in DEXTROSE 5% 100ML IV SCH (05:02)
[2016-04-19 08:02] LABS: BASO % 0.8 %; BASO ABS # 0.09 K/uL (0-0.2); COMPLETE YES; EOS % 1.2 %; HEMATOCRIT 29.6 % (37-47); IG% 0.3 %; LYMPH ABS # 1.88 K/uL (1.2-3.4); MEAN CELL VOLUME 79.1 fL (80-100); MEAN CORPUSCULAR HEMOGLOBIN 24.9 pg (25-34); MEAN CORPUSCULAR HGB CONC 31.4 g/dl (32-36); MEAN PLATELET VOLUME 9.9 fL (7.4-10.4); MONO % 9.5 %; NEUT % 72.2 %; PLATELET COUNT 356 K/uL (130-400); RED BLOOD COUNT 3.74 M/uL (4.2-5.4); WHITE BLOOD COUNT 11.74 K/uL (4.8-10.8)
[2016-04-19] MEDS: FLUTICASONE PROPIONATE NA SPR 16 GM BTL NAE SCH (08:02)
[2016-04-19] MEDS: FLUTICASONE/SALMETEROL 250/50 (ADVAIR) 14 PUFF/1 INHALER INH SCH ×2 (08:02→21:03)
[2016-04-19] MEDS: ONDANSETRON INJ 2 MG/ML 2 ML VIAL IV PRN (08:10)
--- NOTE | 2016-04-19 08:32 | GASTROINTESTINAL CONSULTATION ---
DATE OF CONSULTATION: 04/18/2016 REQUESTING PHYSICIAN: Dr. Guzman. REASON FOR CONSULTATION: Anemia and possible upper GI bleeding. CHIEF COMPLAINT OF PATIENT: She is short of breath. HISTORY OF PRESENT ILLNESS: The patient comes in for shortness of breath and some lower extremity edema. Chest x-ray revealed pulmonary edema and pleural effusions. She has not noted any bloody stools or black stools. No abdominal pain. Possibly some recent constipation. No dysphagia. She states she lost a lot of weight about 2-1/2 years ago, stable over the last 6 months. No fever. Some nausea and vomiting recently, but bile material, no coffee grounds or gross blood. Does have a history of GERD, takes omeprazole. She is on aspirin and Xarelto. Stated she was told had a hiatal hernia in the past. She thinks she may have had some liver problems in the past. In reviewing her [facility] EMR, Dr. Corrigan saw her in November of 2011. She had choledocholithiasis and ERCP with stone removal. She had [facility] GI inpatient consult in March 2014 for nausea, vomiting, abdominal pain and small stones versus pneumobilia. The note stated she was going to get an EUS and an EGD as an outpatient, but I do not have any further records of that. She is not aware if and when she had a colonoscopy done. She did state she was supposed to get an EGD done at some point. I do see a note for unknown GI lab visit scheduled at the hospital. I do not know what physician ordered it or who would be doing that. Anyway, she comes to the ER with shortness of breath and no weakness. ALLERGIES: NUMEROUS INCLUDING PROPANTHELINE, ACETAMINOPHEN, ATROPINE, BEE STING, CEFACLOR, AND OTHER CEPHALOSPORINS, CODEINE, DEXTROMETHORPHAN, DIPHENOXYLATE, DOXYLAMINE, ETHANOL, IODINE, LIDOCAINE, MEPERIDINE, MORPHINE, PENICILLINS, PENTAZOCINE, PROPOXYPHENE, PSEUDOEPHEDRINE, SHELLFISH, [place], MIDAZOLAM, ADHESIVES, AMITRIPTYLINE, SUCCINYLCHOLINE, ANECTINE, AND DEMEROL. MEDICATIONS ON ADMISSION: Included aspirin, Lipitor, vitamin D3, Colace, Advair, fluticasone, Folvite, Lasix, levothyroxine, Cozaar, Toprol, Prilosec, potassium, Xarelto. . P.R.N. MEDICATIONS: Included Ventolin, baclofen, Fiorinal with codeine #3, Valium, Combivent, Nitrostat, Zofran, and Ultram. MEDICAL PROBLEMS: Include acute IA, chest pain, diabetes, Hodgkin's disease, hypertension, pulmonary emboli. She is status post cholecystectomy and ERCP, history of heart artery stents, history of splenectomy. FAMILY HISTORY: Diabetes. SOCIAL HISTORY: Tobacco, uses that daily. REVIEW OF SYSTEMS: CONSTITUTIONAL: Weak. EYES: Gets some blackout of one eye occasionally. ENT: She states she gets nose bleed with clots on a daily basis. CARDIOVASCULAR: Negative. RESPIRATORY: Shortness of breath. GENITOURINARY: Negative. MUSCULOSKELETAL: Arthritis. INTEGUMENTARY: Negative. NEUROLOGIC: Negative. PSYCHIATRIC: Depression. ENDOCRINE: Negative, except as above. HEMATOLOGIC: Negative except as above. PHYSICAL EXAMINATION: GENERAL: Female, appears her stated age, no acute distress. VITAL SIGNS: The most recent vital signs in the chart, temp 37, pulse 93, respirations 26, BP 132/69, O2 saturation 94%. EYES: Conjunctivae and lids normal. ENT: Oropharynx clear. NECK: Without obvious mass or thyroid enlargement. RESPIRATORY: Normal effort. Clear to anterior auscultation. CARDIOVASCULAR: Without obvious murmur. EXTREMITIES: With some edema. ABDOMEN: Positive bowel sounds, soft, nontender, no obvious organomegaly or masses are appreciated. The whole exam was with an observer present including the rectal exam. No obvious mass. Stool is brown. It will be sent to lab for evaluation for blood. LYMPH: No obvious neck or groin nodes. MUSCULOSKELETAL: Digits and nails normal. SKIN: Without obvious rash or induration. NEUROLOGIC: Cranial nerves intact. Sensation intact. PSYCHIATRIC: Recent and remote memory good. Insight and judgment good. DATA: Chest x-ray: Pulmonary edema, pleural effusions. Hemoglobin at 1650 was 8.9, and at 2034 it was 8.4. On 04/09/2016 it was 9.3. On 02/07/2016 it was 9.8. PT INR slightly elevated at 1.3. PTT normal. CMP glucose 115. BNP markedly elevated at 1707. Iron was low in current TIBC. IMPRESSION AND PLAN: 1. Microcytic anemia. Iron low with the TIBC pending, but it looks preliminarily to be iron deficiency anemia. Will check B12 and folate for completeness. She has significant nosebleeds with clots coming out on a daily basis, so that could be the etiology. A stool Hemoccult is pending, but no reported gross blood per rectum, no melena, no coffee or bloody emesis. Occult gastrointestinal bleed is possible, but until the congestive heart failure resolves, would not do any scopes. 2. Nausea, vomiting, recent, this could represent peptic disease. The patient was scheduled for outpatient EGD at [facility], not sure which physician. Consider EGD when the congestive heart failure is stable. 3. Gastroesophageal reflux disease. Proton pump inhibitor. 4. Epistaxis per hospitalist. MTDD
--- NOTE | 2016-04-19 09:03 | Progress Note ---
Subjective Date of Service: Apr 19, 2016. Subjective Pt evaluation today including: conversation w/ patient, physical exam, chart review, lab review, review of studies Problem List Medical Problems: (1) CHF (congestive heart failure) Status: Acute (2) Dyspnea Status: Acute (3) Pleural effusion Status: Acute Review of Systems Constitutional: No chills, No fatigue, No fever, No problem reported, No see HPI, No sweats, No weakness, No weight loss Eyes: No diplopia, No discharge, No eye pain, No problem reported, No redness, No see HPI, No worsening of vision ENT: No dental problems, No hearing loss, No nasal symptoms, No problem reported, No see HPI, No sore throat, No tinnitus, No trouble swallowing, No unusual epistaxis Respiratory: + cough, + shortness of breath, + sputum Cardiac: No PND, No chest pain, No claudication, No edema, No orthopnea, No palpitations, No problem reported, No see HPI Abdomen: No GI bleeding, No constipation, No diarrhea, No nausea, No pain, No problem reported, No see HPI, No vomiting Musculoskeletal: No calf pain, No joint pain, No muscle pain, No problem reported, No see HPI, No swelling Female : No abnormal vaginal bleeding, No dysuria, No hematuria, No incontinence, No problem reported, No see HPI, No urinary frequency, No vaginal discharge Neurologic: No balance problems, No memory loss, No numbness/tingling, No paralysis, No problem reported, No see HPI, No vertigo, No weakness Psychiatric: No anhedonism, No anxiety, No depression symptoms, No insomnia, No problem reported, No see HPI, No substance abuse Heme: No abnormal bleeding/bruising, No clotting problems, No night sweats, No problem reported, No see HPI, No swollen lymph nodes Endo: No excessive thirst, No excessive urination, No fatigue, No problem reported, No see HPI Skin: No bleeding, No color change, No itch, No new/changing skin lesions, No problem reported, No rash, No see HPI Medications Current Inpatient Medications Medications (Trade) Dose Ordered Sig/Keon Route Start Time Stop Time Status Last Admin Dose Admin Pantoprazole Sodium/Dextrose (Protonix Inj/D5 100ml) 100 ml @ 20 mls/hr Q5H IV 04/18/16 20:00 05/18/16 19:59 04/19/16 05:02 20 MLS/HR Lorazepam (Ativan Inj) 0.5 mg Q4H PRN IV 04/18/16 19:45 05/18/16 19:44 Diphenhydramine HCl 25 mg 25 mg Q4H PRN IV 04/18/16 19:45 05/18/16 19:44 Promethazine HCl/ Sodium Chloride (Phenergan Inj/ Nss 50ml) 50.5 ml @ 202 mls/hr Q4H PRN IV 04/18/16 19:45 05/18/16 19:44 Zolpidem Tartrate (Ambien Tab) 5 mg HSZ PRN PO 04/18/16 19:45 05/18/16 19:44 Ondansetron HCl (Zofran Inj) 4 mg Q6H PRN IV 04/18/16 19:45 05/18/16 19:44 04/19/16 08:10 4 MG Salmeterol Xinafoate/ Fluticasone (Advair Diskus 250/50 Inh) 1 puff BID INH 04/18/16 21:00 05/18/16 20:59 04/19/16 08:02 1 PUFF Fluticasone Propionate (Flonase Nasal [place]) 2 sprays DAILY MORALES 04/19/16 09:00 05/19/16 08:59 04/19/16 08:02 2 SPRAYS Albuterol/ Ipratropium (Combivent Respimat Inh) 1 puffs QID PRN INH 04/18/16 19:45 05/18/16 19:44 Nitroglycerin 0.4 mg 0.4 mg UD PRN UT 04/18/16 19:45 05/18/16 19:44 Levothyroxine Sodium/Syringe (Synthroid Inj/ Syringe) 2.8 ml @ 2 mls/min DAILY@09 IV 04/19/16 09:00 05/19/16 08:59 Metoprolol Tartrate (Lopressor Iv) 5 mg Q4 IV. 04/19/16 00:00 05/19/16 00:00 Objective Vital Signs Date Time Temp Pulse Resp B/P Pulse Ox O2 Delivery O2 Flow Rate FiO2 04/19/16 08:00 95 106/57 04/19/16 07:48 36.5 95 18 106/57 97 Nasal Cannula 2.0 04/19/16 04:00 98 Nasal Cannula 2.0 04/19/16 04:00 87 107/59 04/19/16 03:26 36.7 87 17 107/59 98 Nasal Cannula 2.0 04/19/16 00:07 36.7 87 17 126/69 98 Nasal Cannula 2.0 04/18/16 23:59 98 Nasal Cannula 2.0 04/18/16 23:54 94 126/64 04/18/16 22:45 36.8 94 22 120/71 98 Nasal Cannula 2.0 04/18/16 22:30 36.8 84 22 120/68 97 Nasal Cannula 2.0 04/18/16 21:30 37.0 93 26 132/69 94 Room Air 04/18/16 19:59 91 16 128/65 93 Room Air 04/18/16 18:20 88 24 134/71 94 Room Air 04/18/16 17:57 95 Room Air 04/18/16 17:41 95 117/50 96 Room Air 95 130/90 97 110/41 04/18/16 17:06 94 04/18/16 16:47 95 Room Air 04/18/16 16:42 95 Room Air 04/18/16 16:24 36.8 95 18 96/59 95 Room Air Physical Exam General Appearance: WD/WN, no apparent distress Eyes: normal inspection, PERRL, EOMI ENT: normal ENT inspection, hearing grossly normal Neck: supple Respiratory/Chest: chest non-tender, lungs clear, normal breath sounds, no respiratory distress, no accessory muscle use Cardiovascular: regular rate, rhythm, no edema, no gallop, no JVD, no murmur Abdomen: normal bowel sounds, non tender, soft, no organomegaly, no pulsatile mass Extremities: normal range of motion, non-tender, normal inspection, no pedal edema, no calf tenderness 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, no motor/sensory deficits, alert, normal mood/affect, oriented x 3 Skin: normal color, warm/dry, no rash Laboratory Results Last 24 Hours Test 04/18/16 16:50 04/18/16 17:30 04/18/16 19:17 04/18/16 19:40 White Blood Count 12.80 K/uL Red Blood Count 3.54 M/uL Hemoglobin 8.9 g/dL Hematocrit 28.0 % Mean Corpuscular Volume 79.1 fL Mean Corpuscular Hemoglobin 25.1 pg Mean Corpuscular Hemoglobin Concent 31.8 g/dl Platelet Count 343 K/uL Mean Platelet Volume 10.0 fL Neutrophils (%) (Auto) 78.7 % Lymphocytes (%) (Auto) 12.3 % Monocytes (%) (Auto) 7.7 % Eosinophils (%) (Auto) 0.6 % Basophils (%) (Auto) 0.5 % Neutrophils # (Auto) 10.05 K/uL Lymphocytes # (Auto) 1.58 K/uL Monocytes # (Auto) 0.99 K/uL Eosinophils # (Auto) 0.08 K/uL Basophils # (Auto) 0.07 K/uL RDW Standard Deviation 50.8 fL RDW Coefficient of Variation 17.6 % Immature Granulocyte % (Auto) 0.2 % Immature Granulocyte # (Auto) 0.03 K/uL Nucleated RBC Absolute Count (auto) 0.02 K/uL Nucleated Red Blood Cells % 0.2 % Hypochromasia PRESENT Poikilocytosis PRESENT Target Cells 1+ Acanthocytes 1+ Schistocytes 1+ Absolute Reticulocyte Count 0.07 10^6/uL Percent Reticulocyte Count 2.1 % Prothrombin Time 14.4 SECONDS Prothromb Time International Ratio 1.3 Activated Partial Thromboplast Time 29.9 SECONDS Partial Thromboplastin Ratio 1.2 Sodium Level 136 mmol/L Potassium Level 3.9 mmol/L Chloride Level 100 mmol/L Carbon Dioxide Level 27 mmol/L Anion Gap 9.0 mmol/L Blood Urea Nitrogen 13 mg/dl Creatinine 0.55 mg/dl Est Creatinine Clear Calc Drug Dose 88.8 ml/min Estimated GFR () 114.9 Estimated GFR (Non- 99.1 BUN/Creatinine Ratio 23.3 Random Glucose 115 mg/dl Calcium Level 9.1 mg/dl Magnesium Level 2.1 mg/dl Iron Level 14 mcg/dl Total Iron Binding Capacity 330 mcg/dl Total Bilirubin 0.4 mg/dl Direct Bilirubin 0.1 mg/dl Aspartate Amino Transf (AST/SGOT) 21 U/L Alanine Aminotransferase (ALT/SGPT) 24 U/L Alkaline Phosphatase 113 U/L Troponin I < 0.015 ng/ml < 0.015 ng/ml Pro-B-Type Natriuretic Peptide 1707 pg/ml Total Protein 7.5 gm/dl Albumin 3.0 gm/dl Urine Color DK YELLOW Urine Appearance TURBID Urine pH 6.0 Urine Specific [place] 1.032 Urine Protein NEG Urine Glucose (UA) NEG Urine Ketones TRACE Urine Occult Blood NEG Urine Nitrite NEG Urine Bilirubin NEG Urine Urobilinogen NEG Urine Leukocyte Esterase NEG Urine WBC (Auto) 1-5 /hpf Urine RBC (Auto) 0-4 /hpf Urine Hyaline Casts (Auto) 1-5 /lpf Urine Epithelial Cells (Auto) 20-30 /lpf Urine Bacteria (Auto) NEG Urine Crystals AMORPHOUS SEDIMENT Total Creatine Kinase 86 U/L Creatine Kinase MB 2.6 ng/ml Creatine Kinase MB Ratio 3.0 Urine Opiates Screen NEG Urine Methadone, Qualitative NEG Urine Barbiturates NEG Urine Phencyclidine (PCP) Level NEG Ur Amphetamine/Methamphetamine NEG MDMA (Ecstasy) Screen NEG Urine Benzodiazepines Screen NEG Urine Cocaine Metabolite NEG Urine Marijuana (THC) NEG Test 04/18/16 20:35 04/18/16 21:45 04/18/16 23:01 04/19/16 01:50 Hemoglobin 8.4 g/dL 8.8 g/dL Hematocrit 26.6 % 27.9 % Stool Occult Blood NEGATIVE Bedside Glucose 118 mg/dl Test 04/19/16 03:21 04/19/16 06:39 04/19/16 07:26 Prothrombin Time 13.3 SECONDS Prothromb Time International Ratio 1.2 Activated Partial Thromboplast Time 27.8 SECONDS Partial Thromboplastin Ratio 1.1 Sodium Level 138 mmol/L Potassium Level 3.7 mmol/L Chloride Level 100 mmol/L Carbon Dioxide Level 30 mmol/L Anion Gap 8.0 mmol/L Blood Urea Nitrogen 10 mg/dl Creatinine 0.56 mg/dl Est Creatinine Clear Calc Drug Dose 86.8 ml/min Estimated GFR () 114.2 Estimated GFR (Non- 98.5 BUN/Creatinine Ratio 17.5 Random Glucose 102 mg/dl Calcium Level 8.7 mg/dl Magnesium Level 1.9 mg/dl Total Bilirubin 0.4 mg/dl Direct Bilirubin 0.2 mg/dl Aspartate Amino Transf (AST/SGOT) 20 U/L Alanine Aminotransferase (ALT/SGPT) 22 U/L Alkaline Phosphatase 100 U/L Total Creatine Kinase 83 U/L Creatine Kinase MB 2.3 ng/ml Creatine Kinase MB Ratio 2.8 Troponin I < 0.015 ng/ml Total Protein 7.3 gm/dl Albumin 3.2 gm/dl Globulin 4.1 gm/dl Albumin/Globulin Ratio 0.8 Bedside Glucose 113 mg/dl White Blood Count 11.74 K/uL Red Blood Count 3.74 M/uL Hemoglobin 9.3 g/dL Hematocrit 29.6 % Mean Corpuscular Volume 79.1 fL Mean Corpuscular Hemoglobin 24.9 pg Mean Corpuscular Hemoglobin Concent 31.4 g/dl Platelet Count 356 K/uL Mean Platelet Volume 9.9 fL Neutrophils (%) (Auto) 72.2 % Lymphocytes (%) (Auto) 16.0 % Monocytes (%) (Auto) 9.5 % Eosinophils (%) (Auto) 1.2 % Basophils (%) (Auto) 0.8 % Neutrophils # (Auto) 8.49 K/uL Lymphocytes # (Auto) 1.88 K/uL Monocytes # (Auto) 1.11 K/uL Eosinophils # (Auto) 0.14 K/uL Basophils # (Auto) 0.09 K/uL RDW Standard Deviation 51.2 fL RDW Coefficient of Variation 17.8 % Immature Granulocyte % (Auto) 0.3 % Immature Granulocyte # (Auto) 0.03 K/uL Nucleated RBC Absolute Count (auto) 0.02 K/uL Nucleated Red Blood Cells % 0.2 % Assessment and Plan 65 years old smoker female presented with worsening of her chronic cough, with production of yellowish/greenish sputum. also has N/V and iron deficiency anemia. Worsening chronic cough/moderate to severe right pleural effusion with Hx of smoking; will do CT chest to better understand underlying pathology of her pleural effusion xarelto/ASA are on hold since 04/18 for possible throacocenthesis and cytology analysis (brass sorter is consulted) empiric treatment of bronchitis with Azithromycin sputum Cx COPD without significant exacerbation no wheezing , also has good air entry B/L (diminished over her pleural effusion) will do Duoneb QID scheduled dose but will hold off steroids due to lack of wheezing and it will confuse the picture of the underlying diagnosis picture compatible with CHF (unspeicifed yet, awaiting echo), congestion on CXR , elevated BNP 2-D echocardiogram with Dopplers. S/P She'll be given albumin 25 g with Lasix 40 mg IV 1 tonight, a continue losartan potassium 25 mg by mouth every morning, metoprolol succinate 150 mg by mouth every morning, potassium chloride extended release 20 mEq by mouth twice a day Lasix drip low dose / I/Os GERD/Anemia with symptoms of upper GI bleed with a decrease in hemoglobin of about 3-1/2 g over the past year- low iron, elevated TIBC, normal B12 and folate continue Protonix bolus and then drip, GI consult.appreciated Pulmonary emboli history--for now hold Xarelto as noted above. COPD--continue Advair Diskus 250/50 one inhalation twice a day, Combivent restroom at 1 puff 4 times a day when necessary, and albuterol nebulizers 4 times a day when necessary. Add Duoneb QID scheduled Allergic rhinitis--continue Flonase 2 sprays each nostril daily. Hypercholesterolemia--for now hold atorvastatin 80 mg by mouth at bedtime. Hypothyroidism--change levothyroxine sodium 112 g by mouth daily to 56 g IV daily. DVT prophylaxis heparin SQ TID, hold before thoracocenthesis DC heparin when restart xarelto
[2016-04-19] MEDS: LEVOTHYROXINE SODIUM INJ 56 MCG in SYRINGE 0 ML IV SCH (09:09)
[2016-04-19] MEDS ORDERED: GLUCOSE 10 TABS/TUBE PO PRN (09:30)
[2016-04-19] MEDS ORDERED: GLUCAGON FOR INJ 1 MG VIAL SQ PRN (09:30)
[2016-04-19] MEDS ORDERED: DEXTROSE 50% 50 ML SYR IV PRN (09:30)
[2016-04-19] MEDS ORDERED: IRON SUCROSE INJ 100 MG in SODIUM CHLORIDE 0.9% 100ML 100 ML IV ONE (09:30)
[2016-04-19] MEDS ORDERED: GLUCOSE 40% GEL 15 GM TUBE PO PRN (09:30)
[2016-04-19] MEDS ORDERED: PHARMACY GLYCEMIC MGMT CONSULT PRN (09:41)
--- NOTE | 2016-04-19 09:42 | DIAGNOSTIC IMAGING REPORT ---
CT OF THE CHEST WITHOUT IV CONTRAST CLINICAL HISTORY: Cough, pleural effusion. Annual chest x-ray. Pleural effusions. COMPARISON STUDY: CT angiography dated 02/21/2014, chest x-ray dated 02/16/2017 CT DOSE: 298.53 mGy.cm TECHNIQUE: CT of the thorax was performed from the thoracic inlet to the lung bases. Images are reviewed in the axial, sagittal, and coronal planes. IV contrast was not administered for this examination. FINDINGS: Thyroid: Imaged portions of the thyroid gland are normal in appearance. Thoracic aorta: The thoracic aorta is normal in course and caliber, noting standard 3 vessel arch anatomy. Heart: There are coronary artery calcifications present. Lungs and pleural spaces: There are moderate bilateral pleural effusions right greater than left. There are paramediastinal fibrotic changes. Does this patient have a history of prior radiation therapy? There is minimal progression in the previous identified biapical airspace opacities. There are clustered nodules within the periphery of the right lower lobe. These are likely postinflammatory. Mediastinum: There is a mildly enlarged precarinal lymph node measuring 13 mm. Anabel: Evaluation the anabel is difficult given the lack of intravenous contrast. There is right hilar fullness suspicious for mass/adenopathy. There is narrowing of the right lower lobe bronchus. Axilla: Clear. Upper abdomen: The gallbladder surgically absent. There is left perinephric stranding similar to the prior study. Skeletal structures: There are postsurgical changes of midline sternotomy. There is a stable retrosternal fluid collection, likely represent a loculated pleural fluid IMPRESSION: 1. Postsurgical changes on the right 2. Moderate bilateral pleural effusions right greater than left 3. Mildly enlarged mediastinal lymph nodes 4. Suspected right hilar mass/adenopathy with narrowing of the right lower lobe bronchus. Pulmonary consultation is recommended for possible bronchoscopic evaluation 5. Peripheral nodular opacities within the right lower lobe, likely postinflammatory 6. Slight progression in the bilateral upper lobe airspace opacities 7. Paramediastinal fibrotic changes Electronically signed by: Jeromy Torres M.D. 04/19/2016 9:40 AM Dictated Date/Time: 04/19/2016 9:29 AM
[2016-04-19] MEDS ORDERED: FUROSEMIDE INJ 100 MG in DEXTROSE 5% 100ML 90 ML IV SCH (10:00)
[2016-04-19] MEDS ORDERED: AZITHROMYCIN IV 500 MG in DEXTROSE 5% 250ML 250 ML IV SCH (10:00)
--- NOTE | 2016-04-19 10:27 | PULMONARY CONSULTATION ---
DATE OF CONSULTATION: 04/19/2016 The patient is a 65-year-old female who carries a history of recurrent pleural effusions. She was admitted through the Emergency Room with shortness of breath and generalized weakness and Dr. Guzman has asked me to evaluate the patient from a pulmonary standpoint. She had a thoracentesis done several times. The last one I can find in record was from March 2014. At that time, she had 1100 mL of serosanguineous fluid removed. The pathology revealed many mesothelial cells and the evaluation suggested it probably was an exudate with a protein of 3.9 and elevated LDH. All of the cultures have been unremarkable. She states each time she has a thoracentesis done she has marked improvement in her symptoms. She presented to the Emergency Room with shortness of breath. States she has difficulty with doing anything at home over the last 3 months because of generalized weakness and shortness of breath. She has a cough which is nonproductive. No hoarseness or chest pain, fevers or night sweats. She denies any weight loss. She was placed on oxygen and IV diuretics her and with that she had a marked improvement. She is followed by Dr. Correa for heart failure, and Dr. Molina as an outpatient now. She did have a chest x-ray done apparently yesterday as an outpatient that revealed a right pleural effusion which is similar to the previous x-ray of December 2014. Evidence of the median sternotomy is noted as well. She carries a history of coronary disease with an MD in the past, and also an anemia with the recent endoscopy performed. Nonetheless, the patient is sitting on the side of the bed, is considerably improved now. There has been no evidence of any pleural malignancy. PAST MEDICAL HISTORY: Well outlined in the records and includes an MD, recurrent bilateral pleural effusions with thoracentesis several times of the right side. This probably is an exudate. She has a history of non-Hodgkin's lymphoma, hypertension, pulmonary emboli. She has had a cholecystectomy, right heart stent, and splenectomy as well. She has had a history of pneumonia with sepsis and was admitted here in March 2014. She also had a bronchoscopy done on January 2014 and a thoracentesis at that time as well. SOCIAL HISTORY: She still smokes about half pack of cigarettes on a daily basis and has been smoking intermittently since about age 17. She is not an alcohol user. 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 ALLERGIES: NOTED IN THE RECORD AND INCLUDE MULTIPLE ALLERGIES. According to the Emergency Room record, had a history of hypertension. She is , lives with her at the present time. She carries a history of hypothyroidism, and that has been under good control as well. PHYSICAL EXAMINATION: VITAL SIGNS: Reveals her blood pressure to be 107/59, pulse is 80 and regular, respiratory rate 16. She is afebrile. Oxygen saturation is 98% on 2 liters. Her weight is 60 kilograms. When she was here in June 2014 for ectopic atrial tachycardia, she was 61.5 kilograms, so there has not been a significant weight loss over the last year or so. HEENT: Unremarkable. She did have cataract surgery in the past. NECK: There is no neck vein distention or HJR. No adenopathy is palpable anywhere. Expansion of the thorax is good with deep inspiration. HEART: Regular rate and rhythm. I do not detect any murmurs. LUNGS: Reveal decreased breath sounds bilaterally with no crackles or rales or wheezing noted. There is dullness to percussion at the right base. ABDOMEN: Soft, nontender. EXTREMITIES: She has no cyanosis, clubbing or edema. The patient apparently has had some epistaxis with microcytic anemia according to the GI note. Hemoglobin is 8.8, hematocrit 27.9%, with a white count of 12.8, platelet count of 343,000. Coagulation profile showed an INR of 1.2. Chemistry profile was unremarkable. CK enzymes and troponin are negative. I do not see an EKG in the record. BNP was just slightly elevated at 1707. A chest x-ray reveals bilateral pleural effusions, right greater than left with some pulmonary vascular congestion. It appears with the albumin and diuretics she had 2300 mL out last night with about a 2-1/2 pound weight loss. IMPRESSION: 1. Bilateral pleural effusions, right greater than left. She has had a thoracentesis several times in the right hemithorax. This may be related to some heart failure, even though it is an exudative effusion, although at the present time she has no edema, no evidence of any significant fluid overload. Certainly malignancy in a patient who already has a history of Hodgkin's disease is a possibility as well. 2. Coronary artery disease. RECOMMENDATIONS: 1. At this point, I would continue with the diuresis, follow the PRP carefully. Without significant edema she may develop a rising creatinine fairly quickly on the diuretics. 2. Evaluation with Dr. Steele for consideration for a thoracentesis and perhaps even PleurX catheter placed in the right hemithorax. I spoke with the patient regarding that and she was agreeable. She states each time she has a thoracentesis done she has a marked improvement in her overall functional capabilities. 3. Good ulcer prophylaxis. 4. Restart Xarelto 20 mg at night once a thoracentesis has been completed and evaluation by Dr. Steele is completed. Thanks for asking me to evaluate Ms. Preston. Dr. Robertson will be on starting next week.
[2016-04-19] MEDS: ALBUT/IPRATROP 3MG/0.5MG NEB 3 ML VIAL INH SCH ×3 (11:28→19:45)
[2016-04-19] MEDS: INSULIN ASPART 100 UNITS/ML 3 ML PEN SC SCH ×3 (11:52→21:00)
--- NOTE | 2016-04-19 11:54 | DIAGNOSTIC IMAGING REPORT ---
CHEST ONE VIEW PORTABLE CLINICAL HISTORY: s/p right thoracentesis COMPARISON STUDY: 04/18/2016 FINDINGS: There are postsurgical changes of a midline sternotomy. The cardiac and mediastinal contours remain stable. There are calcified left hilar and mediastinal lymph nodes. There are left lung calcified granulomas. There are multiple surgical clips within the upper abdomen. There are bilateral pleural effusions with slight decrease in the size of right pleural effusion. There is no evidence of pneumothorax status post thoracentesis.[There is stable interstitial thickening. IMPRESSION: No evidence of pneumothorax status post thoracentesis. Electronically signed by: Jeromy Torres M.D. 04/19/2016 11:53 AM Dictated Date/Time: 04/19/2016 11:51 AM
[2016-04-19 12:27] LABS: CKMB/CK RATIO 3.5 (0-3.0)
[2016-04-19 12:48] LABS: PLEURAL FLUID APPEARANCE CLOUDY; PLEURAL FLUID COLOR AMBER; PLEURAL FLUID SOURCE RIGHT LUNG; PLEURAL FLUID WBC (A) 2613 /uL
--- NOTE | 2016-04-19 12:58 | Pharmacy Progress Note ---
Glycemic Control Intl Consult Date of Service Apr 19, 2016. Scope Glycemic Pharmacist consulted by Dr Mejia Nazario on 04/19/16 for glycemic control and to write orders per [facility] inpatient glycemic control protocol Objective Weight (Kilograms): 59.000 Accuchecks BSG (last 24hrs): Test 04/18/16 16:50 04/18/16 23:01 04/19/16 03:21 04/19/16 06:39 Random Glucose 115 mg/dl (70-99) 102 mg/dl (70-99) Bedside Glucose 118 mg/dl (70-90) 113 mg/dl (70-90) Test 04/19/16 10:05 04/19/16 11:27 Bedside Glucose 112 mg/dl (70-90) 128 mg/dl (70-90) Laboratory Data (last 24hrs) Test 04/18/16 16:50 04/19/16 03:21 04/19/16 07:26 Anion Gap 9.0 mmol/L 8.0 mmol/L BUN/Creatinine Ratio 23.3 17.5 Blood Urea Nitrogen 13 mg/dl 10 mg/dl Creatinine 0.55 mg/dl 0.56 mg/dl Potassium Level 3.9 mmol/L 3.7 mmol/L Sodium Level 136 mmol/L 138 mmol/L White Blood Count 12.80 K/uL 11.74 K/uL Red Blood Count 3.54 M/uL 3.74 M/uL Hemoglobin 8.9 g/dL 9.3 g/dL Hematocrit 28.0 % 29.6 % Mean Corpuscular Volume 79.1 fL 79.1 fL Mean Corpuscular Hemoglobin 25.1 pg 24.9 pg Mean Corpuscular Hemoglobin Concent 31.8 g/dl 31.4 g/dl Platelet Count 343 K/uL 356 K/uL Mean Platelet Volume 10.0 fL 9.9 fL Neutrophils (%) (Auto) 78.7 % 72.2 % Lymphocytes (%) (Auto) 12.3 % 16.0 % Monocytes (%) (Auto) 7.7 % 9.5 % Eosinophils (%) (Auto) 0.6 % 1.2 % Basophils (%) (Auto) 0.5 % 0.8 % Neutrophils # (Auto) 10.05 K/uL 8.49 K/uL Lymphocytes # (Auto) 1.58 K/uL 1.88 K/uL Monocytes # (Auto) 0.99 K/uL 1.11 K/uL Eosinophils # (Auto) 0.08 K/uL 0.14 K/uL Basophils # (Auto) 0.07 K/uL 0.09 K/uL Recent Pertinent Medications Outpatient Anti-diabetic Regimen: * none * A1c = 6.5 % from 02/07/16 Assessment & Plan ASSESSMENT: * ADA & AACE recommend a goal blood sugar range 140-180 mg/dl for the majority of critically ill & non-critically ill patients. However, more stringent targets may be selected in individual cases. * 65 yo female admitted with CHF, COPD, and iron deficiency anemia with possible upper GIB * A1c indicates diagnosis of diabetes, however, med list does not show any current DM meds as an outpatient. Consideration should be made to discharge pt on Metformin upon discharge. * BSGs appear well-controlled despite absence of inpatient glycemic regimen. Will start a conservative Novolog CF to resolve hyperglycemic events that occur. If BSGs begin to spike post-prandially then will consider addition of CR. * FBG this morning was 112 mg/dl indicating no basal insulin is necessary. PLAN FOR INPATIENT GLYCEMIC CONTROL: * No basal insulin * Novolog ACHS * Begin correction factor of 45 mg/dl/unit * No CR * Set goal range to Low 140 mg/dL - High 180 mg/dL * Please note that the plan above was derived based on current level of insulin resistance and hospital stress. These recommendations are appropriate for inpatient admission only. Plan of care upon discharge will need to be reassessed to avoid potential outpatient hypo/hyperglycemia. Thank you.
[2016-04-19 13:27] LABS: HEMATOCRIT 26.9 % (37-47)
[2016-04-19] MEDS: HEPARIN SOD 5000 UNIT/0.5 ML CARP SQ SCH ×2 (14:45→21:03)
--- NOTE | 2016-04-19 16:20 | Gastroenterology Progress Note ---
Progress Note Subjective Pt evaluation today including: conversation w/ patient, conversation w/ family ( in room) CC f/u anemia HPI no abd pain. stool sent was heme negative. No n/v. Review of Systems Respiratory: + shortness of breath Cardiac: No chest pain Medications Current Inpatient Medications Medications (Trade) Dose Ordered Sig/[place] Route Start Time Stop Time Status Last Admin Dose Admin Lorazepam (Ativan Inj) 0.5 mg Q4H PRN IV 04/18/16 19:45 05/18/16 19:44 Diphenhydramine HCl 25 mg 25 mg Q4H PRN IV 04/18/16 19:45 05/18/16 19:44 Promethazine HCl/ Sodium Chloride (Phenergan Inj/ Nss 50ml) 50.5 ml @ 202 mls/hr Q4H PRN IV 04/18/16 19:45 05/18/16 19:44 Zolpidem Tartrate (Ambien Tab) 5 mg HSZ PRN PO 04/18/16 19:45 05/18/16 19:44 Ondansetron HCl (Zofran Inj) 4 mg Q6H PRN IV 04/18/16 19:45 05/18/16 19:44 04/19/16 08:10 4 MG Salmeterol Xinafoate/ Fluticasone (Advair Diskus 250/50 Inh) 1 puff BID INH 04/18/16 21:00 05/18/16 20:59 04/19/16 08:02 1 PUFF Fluticasone Propionate (Flonase Nasal [place]) 2 sprays DAILY MORALES 04/19/16 09:00 05/19/16 08:59 04/19/16 08:02 2 SPRAYS Albuterol/ Ipratropium (Combivent Respimat Inh) 1 puffs QID PRN INH 04/18/16 19:45 05/18/16 19:44 Nitroglycerin 0.4 mg 0.4 mg UD PRN UT 04/18/16 19:45 05/18/16 19:44 Levothyroxine Sodium/Syringe (Synthroid Inj/ Syringe) 2.8 ml @ 2 mls/min DAILY@09 IV 04/19/16 09:00 05/19/16 08:59 04/19/16 09:09 2 MLS/MIN Metoprolol Tartrate (Lopressor Iv) 5 mg Q4 IV. 04/19/16 00:00 05/19/16 00:00 Albuterol/ Ipratropium 3 ml 3 ml QIDR INH 04/19/16 12:00 05/19/16 11:59 04/19/16 15:17 3 ML Azithromycin/ Dextrose (Zithromax IV/D5 250ml) 255 ml @ 125 mls/hr DAILY@1000 IV 04/19/16 10:00 04/26/16 09:59 04/19/16 10:25 125 MLS/HR Insulin Aspart (novoLOG ASPART) SLIDING SCALE If C... ACHS SC 04/19/16 11:00 05/19/16 10:59 Glucose (Glucose 40% Gel) 15-30 GRAMS 15 GRAMS... UD PRN PO 04/19/16 09:30 05/19/16 09:29 Glucose (Glucose Chew Tab) 4-8 Tablets 4 Tabl... UD PRN PO 04/19/16 09:30 05/19/16 09:29 Dextrose (Dextrose 50% 50ML Syringe) 25-50ML OF 50% DW IV FOR... UD PRN IV 04/19/16 09:30 05/19/16 09:29 Glucagon (Glucagon Inj) 1 mg UD PRN SQ 04/19/16 09:30 05/19/16 09:29 Miscellaneous Information 1 ea 1 ea UD PRN N/A 04/19/16 09:41 05/19/16 09:40 Pantoprazole Sodium 40 mg/ Syringe 10 ml @ 5 mls/min DAILY@ IV 04/19/16 21:00 05/19/16 20:59 Furosemide/ Dextrose (Lasix Inj/D5 100ml) 100 ml @ 3 mls/hr Q24H IV 04/19/16 10:00 05/19/16 09:59 04/19/16 11:48 3 MLS/HR Heparin Sodium (Porcine) (Heparin Sq 5000 Unit/0.5ml) 5,000 unit Q8 SQ 04/19/16 14:00 05/19/16 13:59 04/19/16 14:45 5,000 UNIT Objective Vital Signs Date Time Temp Pulse Resp B/P Pulse Ox O2 Delivery O2 Flow Rate FiO2 04/19/16 15:17 95 16 92 Room Air 04/19/16 12:00 92 Room Air 04/19/16 11:53 101 95/55 04/19/16 11:48 36.7 101 20 95/55 91 Room Air 04/19/16 11:47 36.4 105 16 91/54 92 Room Air 04/19/16 11:28 97 16 99 Nasal Cannula 2.0 04/19/16 08:00 97 Nasal Cannula 2.0 04/19/16 08:00 95 106/57 04/19/16 07:48 36.5 95 18 106/57 97 Nasal Cannula 2.0 04/19/16 04:00 98 Nasal Cannula 2.0 04/19/16 04:00 87 107/59 04/19/16 03:26 36.7 87 17 107/59 98 Nasal Cannula 2.0 04/19/16 00:07 36.7 87 17 126/69 98 Nasal Cannula 2.0 04/18/16 23:59 98 Nasal Cannula 2.0 04/18/16 23:54 94 126/64 04/18/16 22:45 36.8 94 22 120/71 98 Nasal Cannula 2.0 04/18/16 22:30 36.8 84 22 120/68 97 Nasal Cannula 2.0 04/18/16 21:30 37.0 93 26 132/69 94 Room Air 04/18/16 19:59 91 16 128/65 93 Room Air 04/18/16 18:20 88 24 134/71 94 Room Air 04/18/16 17:57 95 Room Air 04/18/16 17:41 95 117/50 96 Room Air 95 130/90 97 110/41 04/18/16 17:06 94 04/18/16 16:47 95 Room Air 04/18/16 16:42 95 Room Air 04/18/16 16:24 36.8 95 18 96/59 95 Room Air Physical Exam General Appearance: WD/WN, no apparent distress Respiratory/Chest: no respiratory distress, + decreased breath sounds Cardiovascular: regular rate, rhythm Abdomen: normal bowel sounds, non tender, soft, no organomegaly Laboratory Results Last 24 Hours Test 04/18/16 16:50 04/18/16 17:30 04/18/16 19:17 04/18/16 19:40 White Blood Count 12.80 K/uL Red Blood Count 3.54 M/uL Hemoglobin 8.9 g/dL Hematocrit 28.0 % Mean Corpuscular Volume 79.1 fL Mean Corpuscular Hemoglobin 25.1 pg Mean Corpuscular Hemoglobin Concent 31.8 g/dl Platelet Count 343 K/uL Mean Platelet Volume 10.0 fL Neutrophils (%) (Auto) 78.7 % Lymphocytes (%) (Auto) 12.3 % Monocytes (%) (Auto) 7.7 % Eosinophils (%) (Auto) 0.6 % Basophils (%) (Auto) 0.5 % Neutrophils # (Auto) 10.05 K/uL Lymphocytes # (Auto) 1.58 K/uL Monocytes # (Auto) 0.99 K/uL Eosinophils # (Auto) 0.08 K/uL Basophils # (Auto) 0.07 K/uL RDW Standard Deviation 50.8 fL RDW Coefficient of Variation 17.6 % Immature Granulocyte % (Auto) 0.2 % Immature Granulocyte # (Auto) 0.03 K/uL Nucleated RBC Absolute Count (auto) 0.02 K/uL Nucleated Red Blood Cells % 0.2 % Hypochromasia PRESENT Poikilocytosis PRESENT Target Cells 1+ Acanthocytes 1+ Schistocytes 1+ Absolute Reticulocyte Count 0.07 10^6/uL Percent Reticulocyte Count 2.1 % Prothrombin Time 14.4 SECONDS Prothromb Time International Ratio 1.3 Activated Partial Thromboplast Time 29.9 SECONDS Partial Thromboplastin Ratio 1.2 Sodium Level 136 mmol/L Potassium Level 3.9 mmol/L Chloride Level 100 mmol/L Carbon Dioxide Level 27 mmol/L Anion Gap 9.0 mmol/L Blood Urea Nitrogen 13 mg/dl Creatinine 0.55 mg/dl Est Creatinine Clear Calc Drug Dose 88.8 ml/min Estimated GFR () 114.9 Estimated GFR (Non- 99.1 BUN/Creatinine Ratio 23.3 Random Glucose 115 mg/dl Calcium Level 9.1 mg/dl Magnesium Level 2.1 mg/dl Iron Level 14 mcg/dl Total Iron Binding Capacity 330 mcg/dl Total Bilirubin 0.4 mg/dl Direct Bilirubin 0.1 mg/dl Aspartate Amino Transf (AST/SGOT) 21 U/L Alanine Aminotransferase (ALT/SGPT) 24 U/L Alkaline Phosphatase 113 U/L Troponin I < 0.015 ng/ml < 0.015 ng/ml Pro-B-Type Natriuretic Peptide 1707 pg/ml Total Protein 7.5 gm/dl Albumin 3.0 gm/dl Urine Color DK YELLOW Urine Appearance TURBID Urine pH 6.0 Urine Specific [place] 1.032 Urine Protein NEG Urine Glucose (UA) NEG Urine Ketones TRACE Urine Occult Blood NEG Urine Nitrite NEG Urine Bilirubin NEG Urine Urobilinogen NEG Urine Leukocyte Esterase NEG Urine WBC (Auto) 1-5 /hpf Urine RBC (Auto) 0-4 /hpf Urine Hyaline Casts (Auto) 1-5 /lpf Urine Epithelial Cells (Auto) 20-30 /lpf Urine Bacteria (Auto) NEG Urine Crystals AMORPHOUS SEDIMENT Total Creatine Kinase 86 U/L Creatine Kinase MB 2.6 ng/ml Creatine Kinase MB Ratio 3.0 Urine Opiates Screen NEG Urine Methadone, Qualitative NEG Urine Barbiturates NEG Urine Phencyclidine (PCP) Level NEG Ur Amphetamine/Methamphetamine NEG MDMA (Ecstasy) Screen NEG Urine Benzodiazepines Screen NEG Urine Cocaine Metabolite NEG Urine Marijuana (THC) NEG Test 04/18/16 20:35 04/18/16 21:45 04/18/16 23:01 04/19/16 00:00 Hemoglobin 8.4 g/dL Hematocrit 26.6 % Stool Occult Blood NEGATIVE Bedside Glucose 118 mg/dl Pleural Fluid Source RIGHT LUNG Pleural Fluid Color JOSÉ MIGUEL Pleural Fluid Appearance CLOUDY Pleural Fluid WBC 2613 /uL Pleural Fluid RBC 28346 /uL Pleural Fluid Polynuclear WBCs % 21.0 % Pleural Fluid Mononuclear WBCs % 79.0 % Pleural Fluid Total Protein 4.0 g/dl Pleural Fluid LDH 142 IU Pleural Fluid Glucose 103 mg/dl Pleural Fluid Amylase 57 U/L Test 04/19/16 01:50 04/19/16 03:21 04/19/16 06:39 04/19/16 07:26 Hemoglobin 8.8 g/dL 9.3 g/dL Hematocrit 27.9 % 29.6 % Prothrombin Time 13.3 SECONDS Prothromb Time International Ratio 1.2 Activated Partial Thromboplast Time 27.8 SECONDS Partial Thromboplastin Ratio 1.1 Sodium Level 138 mmol/L Potassium Level 3.7 mmol/L Chloride Level 100 mmol/L Carbon Dioxide Level 30 mmol/L Anion Gap 8.0 mmol/L Blood Urea Nitrogen 10 mg/dl Creatinine 0.56 mg/dl Est Creatinine Clear Calc Drug Dose 86.8 ml/min Estimated GFR () 114.2 Estimated GFR (Non- 98.5 BUN/Creatinine Ratio 17.5 Random Glucose 102 mg/dl Calcium Level 8.7 mg/dl Magnesium Level 1.9 mg/dl Total Bilirubin 0.4 mg/dl Direct Bilirubin 0.2 mg/dl Aspartate Amino Transf (AST/SGOT) 20 U/L Alanine Aminotransferase (ALT/SGPT) 22 U/L Alkaline Phosphatase 100 U/L Total Creatine Kinase 83 U/L Creatine Kinase MB 2.3 ng/ml Creatine Kinase MB Ratio 2.8 Troponin I < 0.015 ng/ml Total Protein 7.3 gm/dl Albumin 3.2 gm/dl Globulin 4.1 gm/dl Albumin/Globulin Ratio 0.8 Bedside Glucose 113 mg/dl White Blood Count 11.74 K/uL Red Blood Count 3.74 M/uL Mean Corpuscular Volume 79.1 fL Mean Corpuscular Hemoglobin 24.9 pg Mean Corpuscular Hemoglobin Concent 31.4 g/dl Platelet Count 356 K/uL Mean Platelet Volume 9.9 fL Neutrophils (%) (Auto) 72.2 % Lymphocytes (%) (Auto) 16.0 % Monocytes (%) (Auto) 9.5 % Eosinophils (%) (Auto) 1.2 % Basophils (%) (Auto) 0.8 % Neutrophils # (Auto) 8.49 K/uL Lymphocytes # (Auto) 1.88 K/uL Monocytes # (Auto) 1.11 K/uL Eosinophils # (Auto) 0.14 K/uL Basophils # (Auto) 0.09 K/uL RDW Standard Deviation 51.2 fL RDW Coefficient of Variation 17.8 % Immature Granulocyte % (Auto) 0.3 % Immature Granulocyte # (Auto) 0.03 K/uL Nucleated RBC Absolute Count (auto) 0.02 K/uL Nucleated Red Blood Cells % 0.2 % Test 04/19/16 10:05 04/19/16 11:27 04/19/16 11:40 04/19/16 13:23 Bedside Glucose 112 mg/dl 128 mg/dl Total Creatine Kinase 83 U/L Creatine Kinase MB 2.9 ng/ml Creatine Kinase MB Ratio 3.5 Troponin I < 0.015 ng/ml Hemoglobin 8.4 g/dL Hematocrit 26.9 % Assessment and Plan Microcytic anemia--Fe saturation low at 4%which explains. B12 and folate states cancelled on lab. Could be form epistaxis or slow GI blood loss. N/V--recently and this could represent PUD. She was scheduled for outpt EGD at [facility] she states with DR Wan GERD--PPI Epistaxis--per hospitalist Discussed with hospitalist Dr Nazario the patient has no active bleeding. Told him signing off but if he wants us to do EGD at end of hospitalization when fully optimized call us back otherwise she can keep outpt appt with Dr Wan.
[2016-04-19 19:56] LABS: HEMATOCRIT 28.6 % (37-47)
[2016-04-19] MEDS: LEVOFLOXACIN / D5W 500 MG in PREMIXED IN D5W 100 ML IV SCH (22:33)
[2016-04-19] MEDS: PANTOprazole INJ 40 MG in SYRINGE 0 ML IV SCH (22:33)
--- NOTE | 2016-04-19 23:48 | OPERATIVE REPORT ---
DATE OF OPERATION: 04/19/2016 PROCEDURE: Right thoracentesis under ultrasound guidance. SURGEON: Dr. Steele. ANESTHESIA: Local. SPECIFICS OF PROCEDURE: With the patient in upright position, ultrasound was used to localize a good window in the patient's posterior right chest. She was prepped and draped in usual sterile fashion. A small 25-gauge needle was used to create a skin wheal above about the 8th rib in the posterior axillary line. I then used a larger needle to anesthetize the deeper tissues and pleura and then get free flowing fluid. A guidewire was inserted through the needle and needle removed. Introducer sheath was slid over the guidewire and guidewire removed and then the triple lumen catheter was slid into 17 cm. I drained about 1250 mL of a rust colored fluid and sent it to the lab. She had a great deal of coughing and reexpansion pain. Given her cardiac issues, I elected to proceed with stopping here and assessing her response. I may want to insert a Pleurx catheter later. In addition, she is also on Xarelto but has now received that since she was admitted to the hospital and would like to give that another day or two to wear off. We will see how she does radiographically and clinically. I attest to the content of the Intraoperative Record and any orders documented therein. Any exceptio ns are noted below.
--- NOTE | 2016-04-19 23:52 | SURGICAL CONSULTATION ---
DATE OF CONSULTATION: 04/19/2016 REASON FOR CONSULTATION: Pleural effusion. HISTORY OF PRESENT ILLNESS: Litzy Preston is a very nice 65-year-old female with multiple issues from a pulmonary standpoint. She has had recurrent pleural effusions and undergone taps in the past, although not one for at least a couple of years. She presents with increasing dyspnea over the last 10-12 weeks. She states her cough is nonproductive. She denies weight loss. Markedly improved with oxygen. She was septic from pneumonia 2 years ago in March 2014 and also has a history of non-Hodgkin's lymphoma treated with radiation. She has also undergone a splenectomy. She has a history of cigarette smoking. I was asked to evaluate her and comment on these pleural effusions, the right of which is larger. It is important to note that when she has undergone thoracenteses in the past, she has improved clinically. PAST MEDICAL HISTORY: 1. Pulmonary emboli in the past. 2. Hypertension. 3. Non-Hodgkin's lymphoma. 4. Hemoptysis. 5. Pneumonia with sepsis. 6. History of cigarette smoking. 7. Hypothyroidism. 8. Diabetes mellitus. 9. Acute myocardial infarction in the past. 10. ERCP. 11. Left breast biopsy. PAST SURGICAL HISTORY: 1. Percutaneous transluminal angioplasty and stent. 2. Coronary artery bypass grafting. 3. History of splenectomy. 4. Cholecystectomy. 5. 2, para 2, abortus 0. 6. Pulmonary arteriogram with embolization for hemoptysis. 7. Multiple thoracenteses and multiple bronchoscopies. 8. Cataract surgery. 9. Ablation of atrial tachycardia. MEDICATIONS: 1. Aspirin. 2. Vitamin D. 3. Lipitor. 4. Advair Diskus. 5. Folic acid. 7. Lasix. 8. Omeprazole. 9. Toprol. 10. Losartan. 11. Synthroid. 12. Potassium supplements. 13. Xarelto. ALLERGIES: Multiple, please see chart. APPARENTLY HAS HAD URTICARIA FROM PROPANTHELINE, CEFADROXIL. SOCIAL HISTORY: The patient is and lives with her . She continues to smoke. She smokes half a pack a day. Her oewavvap-[id number] is a certified driver examiner here at [facility]. FAMILY MEDICAL HISTORY: Two sons and her granddaughter are healthy. REVIEW OF SYSTEMS: The patient's weight has been relatively stable. She states she does have trouble with her left eye "blacking out" on occasion. She denies any other visual changes, no hearing changes. She has had no fevers or chills. She denies abdominal pain. She has had no hemoptysis, hematemesis or hematochezia. She has had no symptoms. She has no other neurologic symptoms, such as focal weakness, seizures or loss of consciousness. She had no joint effusion, although she does get peripheral edema. She has had none recently. She has had no skin breakdown. She is short of breath noted. PHYSICAL EXAMINATION: GENERAL: This is a 5-feet 2-inch, 131-pound white female who is awake, alert and oriented. HEENT: Her extraocular movements are intact. Pupils are equal, round and reactive. Sclerae are anicteric. She has no oral mucosal lesions, her tongue is midline. She has no nasolabial flattening. NECK: Supple. I do not detect supraclavicular or cervical lymphadenopathy, neck vein distention or bruits. She has no thyromegaly. HEART: She has a regular rate and rhythm of her heart. She has a well-healed midline sternotomy with no click. LUNGS: She has decreased breath sounds in both bases, particularly on the right. She has no wheezing. She does have a few rhonchi which clear with cough. ABDOMEN: Soft, nontender and I detect no evidence of abdominal aortic aneurysm or hepatosplenomegaly. EXTREMITIES: Without clubbing, cyanosis or edema. Apparently she had edema when she came in, but she has absolutely none this morning, and she has excellent posterior tibialis pulses. She has no hemosiderin deposition or other skin lesions. NEUROLOGIC: She is awake, alert, oriented. Cranial nerves II-XII are intact. There are no focal deficits. DATA REVIEWED: A CT scan done this morning and she does have bilateral homogenous effusions, more on the right, much larger than the left. I see no actual lung masses. ASSESSMENT AND PLAN: Chronic and recurrent pleural effusions, right greater than left. I had a long talk with the patient and her [id number] here at the bedside. I explained that we could simply observe her and see if she improves with the Lasix drip. The other option would be to take her to the operating room for a thoracoscopy, but I do not think either one of these approaches is warranted. We had a long discussion about PleurX catheters and thoracentesis. At this point, I elected to proceed with a thoracentesis. Depending on what we find, I may want to insert a PleurX catheter. This is an odd effusion, it has been exudative in the past which really does not go along with congestive heart failure. We will see how she does symptomatically when we drain her. We will do that later today. ZANDRA
[2016-04-20] VITALS (15 sets, daily range): BP systolic 95–120; BP diastolic 49–70; PULSE 92–105; TEMP 36.7–37; O2SAT 90–98
[2016-04-20] MEDS: ONDANSETRON INJ 2 MG/ML 2 ML VIAL IV PRN (01:42)
[2016-04-20 01:56] LABS: HEMATOCRIT 25.7 % (37-47)
[2016-04-20] MEDS: METOPROLOL TARTRATE 1 MG/ML VIAL IV. SCH ×7 (04:00→23:35)
[2016-04-20] MEDS: HEPARIN SOD 5000 UNIT/0.5 ML CARP SQ SCH ×3 (05:48→20:09)
[2016-04-20] MEDS: ALBUT/IPRATROP 3MG/0.5MG NEB 3 ML VIAL INH SCH ×4 (07:10→19:26)
--- NOTE | 2016-04-20 07:29 | DIAGNOSTIC IMAGING REPORT ---
CHEST ONE VIEW PORTABLE HISTORY: pleural effusions COMPARISON: Chest 04/19/2016. FINDINGS: Poststernotomy changes. The heart is normal in size. Small moderate bilateral pleural effusions persist. Calcified left hilar lymph nodes and a left upper lobe calcified granuloma. No pneumothorax. Multiple abdominal surgical clips are again noted. IMPRESSION: No change in the small to moderate bilateral pleural effusions. No pneumothorax. Electronically signed by: Beck Dixon M.D. 04/20/2016 7:27 AM Dictated Date/Time: 04/20/2016 7:26 AM
[2016-04-20 07:48] LABS: BASO % 0.7 %; BASO ABS # 0.07 K/uL (0-0.2); EOS % 0.9 %; HEMATOCRIT 27.5 % (37-47); IG% 0.4 %; LYMPH % 18.7 %; MEAN CELL VOLUME 78.3 fL (80-100); MEAN CORPUSCULAR HEMOGLOBIN 24.8 pg (25-34); MEAN CORPUSCULAR HGB CONC 31.6 g/dl (32-36); MEAN PLATELET VOLUME 9.6 fL (7.4-10.4); MONO % 12.3 %; PLATELET COUNT 327 K/uL (130-400); RED BLOOD COUNT 3.51 M/uL (4.2-5.4); WHITE BLOOD COUNT 9.65 K/uL (4.8-10.8)
[2016-04-20 08:00] LABS: INR 1.2 (0.9-1.1); PARTIAL THROMBOPLASTIN RATIO 1.2; PROTHROMBIN TIME (PATIENT) 13.3 SECONDS (9.0-12.0)
[2016-04-20 08:07] LABS: ESTIMATED AVERAGE GLUCOSE 137 mg/dl; HA1C FLAG Normal (Normal)
[2016-04-20 08:19] LABS: COMPLETE YES; MICROCYTOSIS PRESENT; POIKILOCYTOSIS PRESENT; TARGET CELLS 1+
[2016-04-20] MEDS: INSULIN ASPART 100 UNITS/ML 3 ML PEN SC SCH ×4 (08:19→20:23)
[2016-04-20] MEDS: PANTOprazole INJ 40 MG in SYRINGE 0 ML IV SCH ×2 (08:24→20:08)
[2016-04-20] MEDS: FLUTICASONE PROPIONATE NA SPR 16 GM BTL NAE SCH (08:24)
[2016-04-20] MEDS: FLUTICASONE/SALMETEROL 250/50 (ADVAIR) 14 PUFF/1 INHALER INH SCH ×2 (08:24→20:08)
[2016-04-20 08:25] LABS: ALB/GLOB RATIO 0.7 (0.9-2); BUN/CREATININE RATIO 15.4 (10-20); CALCIUM 8.7 mg/dl (8.5-10.1); CHOLESTEROL/HDL RATIO 2.5; CREATININE 0.59 mg/dl (0.60-1.20); POTASSIUM 3.1 mmol/L (3.5-5.1)
[2016-04-20] MEDS: BACLOFEN 10 MG TAB PO PRN (08:52)
[2016-04-20] MEDS ORDERED: NON-FORMULARY MEDICATION (Omeprazole (Prilosec) 40 MG) PO SCH (09:00)
[2016-04-20] MEDS: LEVOTHYROXINE SODIUM INJ 56 MCG in SYRINGE 0 ML IV SCH (09:00)
--- NOTE | 2016-04-20 09:36 | Pharmacy Progress Note ---
Glycemic: Assessment & Plan Date of Service Apr 20, 2016. Assessment & Plan Assessment * 65 yo F on no diabetes medications as an outpatient with an HbA1c that meets criteria for pre-diabetes / diabetes * BSG's ranging 93-128 over 24 hours with no insulin administered * Patient only ordered sliding scale (no carb count) which is appropriate * No changes needed at this time Plan Continue the following: * Basal insulin: None * Correctional Insulin: Novolog Correction per scale ACHS Goal Range: Low 140 mg/dL - High 180 mg/dL Correction Factor: 40 mg/dL/unit Pharmacy will sign-off glycemic management at this time. Please re-consult if desired. * Please note that the plan above was derived based on current level of insulin resistance and hospital stress. These recommendations are appropriate for inpatient admission only. Plan of care upon discharge will need to be reassessed to avoid potential outpatient hypo/hyperglycemia.
[2016-04-20] MEDS ORDERED: METOPROLOL SUCC 50MG EXT REL TAB PO ONE (09:42)
[2016-04-20] MEDS ORDERED: ALBUTEROL 0.083% NEBU SOLN 3 ML VIAL INH PRN (10:00)
--- NOTE | 2016-04-20 11:11 | CARDIOLOGY CONSULTATION ---
DATE OF CONSULTATION: 04/20/2016 TIME: 09:49 a.m. CONSULTING PHYSICIAN: Dr. Harvinder Joyce. REASON FOR CONSULTATION: Rhythm changes CHF. HISTORY OF PRESENT ILLNESS: Ms. Preston is a pleasant 65-year-old female with a history significant for CAD status post CABG x4 and prior RCA PCI, aortic and mitral regurgitation, status post bioprosthetic valve replacements, cardiomyopathy with normalized LV systolic function following ablation for atrial tachycardia, paroxysmal atrial fibrillation, hypertension, chronic diastolic CHF, dyslipidemia, and prior history of Hodgkin's lymphoma treated with XRT. She presented to [facility] on 04/18/2016 with shortness of breath and worsening fatigue. She also had noted some bilateral lower extremity swelling. She was last seen in the office on 04/09/2016 and was doing well that day. Since that time, she has had increasing shortness of breath, fatigue, and also some palpitations. The palpitations were lasting 30-60 seconds before spontaneously resolving. They were not overly bothersome to her, but otherwise just annoying. Since her hospitalization, she has been given Lasix drip and has diuresed and at negative 3.5 liters. She also underwent thoracentesis and had 1.[address] Steele yesterday. He plans for more definitive treatment tomorrow. She was also found to be anemic and iron deficiency. She is being treated with iron infusions. Overall, she feels better than she did when she first presented to the hospital. She was unable to sleep last night, however, due to interruptions and also trips to the restroom while on Lasix drip. Her breathing has improved. She described her breathing as dyspnea with exertion and denied orthopnea or shortness of breath at rest. She had some atypical chest discomfort as an outpatient. She has not had any further chest discomfort since her visit with me on 04/09/2016. She denies syncope, near syncope, fevers or chills. She was having some issues with vomiting; however, this has resolved. She has been evaluated by GI and has an outpatient EGD pending with Dr. Wan. She denies bleeding such as melena, hematochezia or hematuria. She did have some epistaxis as an outpatient, which we discussed a few weeks ago. As an outpatient, she was prescribed 40 mg of Lasix daily; however, chose to only take Lasix approximately once per week. REVIEW OF SYSTEMS: As above and review of systems is otherwise negative. PAST MEDICAL HISTORY: 1. CAD, status post CABG x4 on 10/13/2013 including SVG to LAD, SVG to OM and then PDA sequential graft, and SVG to ramus. 2. Aortic valve and mitral valve replacement on 10/13/2013: 23-mm [employer] Chandana Epic bioprosthesis aortic valve. Mitral valve replacement with a 27-mm [employer] Chandana Epic bioprosthesis. 3. RCA PCI in 2003. 4. Atrial tachycardia, status post ablation on 07/05/2014. 5. Cardiomyopathy, improved following an ablation. 6. Left bundle-branch block. 7. Anemia. 8. Aortic and mitral valve regurgitation, status post valve replacement as above. 9. Paroxysmal atrial fibrillation. 10. Diastolic CHF. 11. Hodgkin's lymphoma treated with XRT in the . 12. DVT and PE. 13. Carotid artery stenosis evaluated by vascular surgery. 14. Asthma. 15. Esophageal reflux. 16. Hypertension. 17. Dyslipidemia. 18. Hypothyroidism. 19. Recurrent pleural effusions found to be exudative process in the past. Status post thoracentesis. 20. Diabetes type 2. HOME MEDICATIONS: Include, 1. Metoprolol succinate 150 mg daily. 2. Aspirin 81 mg daily. 3. Xarelto 20 mg daily. 4. Lasix 40 mg daily; however, she takes is as needed approximately once per week. 5. Omeprazole 40 mg daily. 6. Atorvastatin 80 mg daily. 7. Losartan 25 mg daily. 8. Potassium chloride 20 mEq twice daily. 9. Levothyroxine 112 mcg daily. 10. Amoxicillin for SBE prophylaxis. Please see full list. INPATIENT MEDICATIONS: Include, 1. Lasix drip. 2. Heparin 5000 units subQ q. 8 hours. 3. Levofloxacin. 4. Synthroid. 5. Advair Diskus. ALLERGIES: Reviewed. PLEASE SEE FULL LIST IT IS EXTENSIVE AND INCLUDE IODINE, PENICILLINS, AND LISINOPRIL. SOCIAL HISTORY: She has smoked occasionally. Occasional alcohol. She is and has 2 sons. She lives with her . Her [id number]-pph Mary and her niece are present at the bedside. FAMILY HISTORY: Sister diagnosed with CAD in her 60s. PHYSICAL EXAMINATION: VITAL SIGNS: Temperature 36.9 degrees, heart rate 101, respiratory rate 18, blood pressure 95/63 mmHg, and oxygen saturation 90% on room air. I's and O's negative 2.4 liters yesterday, negative 958 mL so far today. Weight is 59 kg. GENERAL: In no acute distress. She is alert and oriented. HEENT: Anicteric sclerae. NECK: Thin. She has no JVD. No bruits. Normal carotid upstrokes bilaterally. CARDIAC EXAMINATION: PMI was a prominent and nondisplaced. There was no ventricular heave. Regular, but tachycardic, normal S1 and S2. 2/6 systolic murmur heard throughout. No rubs or gallops. LUNGS: Relatively clear throughout. ABDOMEN: Soft, nondistended, mild tenderness throughout. No rebound tenderness. Normoactive bowel sounds. No bruits noted. EXTREMITIES: No cyanosis or edema. 2+ radial pulses bilaterally. 2+ dorsalis pedis pulses bilaterally. No palpable cords. PSYCHIATRIC: Affect appears appropriate. ECGs were personally reviewed. Most recent ECG done on 04/19/2016 at 14:19 demonstrated sinus rhythm with first degree AV block at 96 beats per minute. Left bundle branch block. Chest x-ray performed today personally reviewed. Image personally reviewed and notable for bilateral pleural effusions. Radiology has reported this as [id number] bilateral pleural effusions. No pneumothorax. CT scan of the chest on 04/19/2016 reports moderate bilateral pleural effusions, right greater than left. Mildly enlarged mediastinal lymph nodes. Suspected right hilar mass/adenopathy with narrowing of the right lower lobe bronchus. Peripheral nodular opacities within the right lower lobe. Bilateral upper lobe airspace opacities. Paramediastinal fibrotic changes. Telemetry personally reviewed. No arrhythmia. Her heart rate overall has been trending upward; however, in sinus rhythm since admission. LABORATORY DATA: White blood cell count is 9.65, hemoglobin 8.7, and platelets 327. Sodium 137, potassium 3.1, BUN 9, and creatinine 0.59. Albumin 2.8, triglycerides 60, total cholesterol 76, LDL 33, and pro-brain natriuretic peptide 1707. Troponin undetectable. INR was 1.2. Pleural fluid demonstrated a total protein of 4. The pleural effusion protein to serum protein ratio was greater than 0.5, suggesting an exudative process. ASSESSMENT AND PLAN: 1. Chronic diastolic congestive heart failure: She does not appear to be significantly hypervolemic; however, is tolerating a Lasix drip. She was not compliant with outpatient Lasix. Recommend discontinuing Lasix drip at this time as she has not had unable to have any rest overnight. Can use Lasix 40 mg p.o. daily. If shortness of breath worsens and she appears more hypervolemic, can get intermittent doses of IV Lasix. Low sodium diet. Daily weights. Strict I's and O's. 2. Pleural effusion: It appears to be an exudative process. CT scan does suggest a right hilar mass according to radiology. Pulmonology is following as well as thoracic surgery. More definitive treatment of pleural effusion is planned for tomorrow. The pleural effusion findings were discussed with Dr. Steele, who presented at the bedside. 3. Tachycardia: Likely secondary to discontinuation of beta delphine. She has not received any beta delphine throughout her hospital stay. She was hypotensive this morning and therefore, we will start a lower dose than her usual home dose. Metoprolol succinate 50 mg once daily will be initiated today. Backing off on diuresis may also help improve her blood pressure. 4. Cardiomyopathy: LV systolic function improved following ablation and therefore, it may have been a tachycardia induced LV systolic dysfunction. A repeat echocardiogram today. It is pending as an outpatient. Continue beta delphine. If blood pressure allows, restart losartan. 5. Paroxysmal atrial fibrillation: She has declined Coumadin in the past in place of Xarelto. Anticoagulation is currently on hold secondary to thoracentesis yesterday and planned procedure tomorrow. Anticoagulation can resume following this procedure when safe from a surgical standpoint. A beta delphine will be resumed as noted above. 6. Bioprosthetic aortic and mitral valves: Echocardiogram was ordered to be done today. 7. Dyspnea with exertion: Significantly improved following thoracentesis and diuresis. 8. Anemia: As per primary service. Appears to be iron deficient anemia. 9. CAD status post CABG and RCA PCI: Would resume aspirin 81 mg daily given prior history of PCI. No angina. 10. Disposition: Plan of care was discussed with Dr. Padilla of the hospitalist service. Cardiology will continue to follow. Thank for allowing me to participate in care of Ms. Preston. ZANDRA
[2016-04-20 13:23] LABS: HEMATOCRIT 28.2 % (37-47)
--- NOTE | 2016-04-20 15:25 | Progress Note ---
Subjective Date of Service: Apr 20, 2016. Subjective Pt evaluation today including: conversation w/ patient, conversation w/ family Pt feels somewhat improved. SOB is better, but still present. Still feeling overall weak. Tolerated PO without issue. Pt denies fever, chest pain, abd pain , n/v/c/d, LE pain or swelling. ROS as noted above, otherwise neg. Problem List Medical Problems: (1) CHF (congestive heart failure) Status: Acute (2) Dyspnea Status: Acute (3) Pleural effusion Status: Acute Objective Vital Signs Date Time Temp Pulse Resp B/P Pulse Ox O2 Delivery O2 Flow Rate FiO2 04/20/16 12:00 93 Room Air 04/20/16 11:20 37.0 101 16 120/66 91 Room Air 04/20/16 11:18 105 16 95 Room Air 04/20/16 08:00 92 Room Air 04/20/16 08:00 101 95/53 04/20/16 07:21 36.9 101 18 95/53 90 Room Air 04/20/16 07:10 101 16 91 Room Air 04/20/16 04:00 98 Nasal Cannula 2.0 04/20/16 04:00 112/60 04/20/16 03:38 36.7 97 17 114/66 91 Nasal Cannula 2.0 04/20/16 00:11 112/70 04/20/16 00:00 105 112/70 04/19/16 23:59 98 Nasal Cannula 2.0 04/19/16 23:58 37.1 105 17 83/41 Room Air 90 04/19/16 20:00 Room Air 04/19/16 19:45 99 16 93 Room Air 04/19/16 19:27 36.7 103 18 95/55 93 Room Air 04/19/16 16:33 109 101/62 04/19/16 16:24 36.8 109 18 101/62 90 Room Air 04/19/16 16:00 94 Room Air Physical Exam General Appearance: WD/WN, no apparent distress Respiratory/Chest: no respiratory distress, + decreased breath sounds Cardiovascular: regular rate, rhythm, no edema Abdomen: non tender, soft Extremities: non-tender, no pedal edema Neurologic/Psychiatric: alert, normal mood/affect Skin: normal color, warm/dry Laboratory Results Last 24 Hours Test 04/19/16 16:22 04/19/16 19:45 04/19/16 19:59 04/20/16 01:30 Bedside Glucose 103 mg/dl 109 mg/dl Hemoglobin 9.1 g/dL 8.5 g/dL Hematocrit 28.6 % 25.7 % Test 04/20/16 06:57 04/20/16 07:28 04/20/16 11:07 04/20/16 13:15 Bedside Glucose 93 mg/dl 112 mg/dl White Blood Count 9.65 K/uL Red Blood Count 3.51 M/uL Hemoglobin 8.7 g/dL 9.1 g/dL Hematocrit 27.5 % 28.2 % Mean Corpuscular Volume 78.3 fL Mean Corpuscular Hemoglobin 24.8 pg Mean Corpuscular Hemoglobin Concent 31.6 g/dl Platelet Count 327 K/uL Mean Platelet Volume 9.6 fL Neutrophils (%) (Auto) 67.0 % Lymphocytes (%) (Auto) 18.7 % Monocytes (%) (Auto) 12.3 % Eosinophils (%) (Auto) 0.9 % Basophils (%) (Auto) 0.7 % Neutrophils # (Auto) 6.46 K/uL Lymphocytes # (Auto) 1.80 K/uL Monocytes # (Auto) 1.19 K/uL Eosinophils # (Auto) 0.09 K/uL Basophils # (Auto) 0.07 K/uL RDW Standard Deviation 50.3 fL RDW Coefficient of Variation 17.8 % Immature Granulocyte % (Auto) 0.4 % Immature Granulocyte # (Auto) 0.04 K/uL Nucleated RBC Absolute Count (auto) 0.05 K/uL Nucleated Red Blood Cells % 0.5 % Poikilocytosis PRESENT Microcytosis PRESENT Target Cells 1+ Prothrombin Time 13.3 SECONDS Prothromb Time International Ratio 1.2 Activated Partial Thromboplast Time 31.9 SECONDS Partial Thromboplastin Ratio 1.2 Sodium Level 137 mmol/L Potassium Level 3.1 mmol/L Chloride Level 96 mmol/L Carbon Dioxide Level 29 mmol/L Anion Gap 12.0 mmol/L Blood Urea Nitrogen 9 mg/dl Creatinine 0.59 mg/dl Est Creatinine Clear Calc Drug Dose 76.2 ml/min Estimated GFR () 112.3 Estimated GFR (Non- 96.9 BUN/Creatinine Ratio 15.4 Random Glucose 86 mg/dl Estimated Average Glucose 137 mg/dl Hemoglobin A1c 6.4 % Calcium Level 8.7 mg/dl Total Bilirubin 0.3 mg/dl Aspartate Amino Transf (AST/SGOT) 20 U/L Alanine Aminotransferase (ALT/SGPT) 17 U/L Alkaline Phosphatase 96 U/L Total Protein 6.9 gm/dl Albumin 2.8 gm/dl Globulin 4.1 gm/dl Albumin/Globulin Ratio 0.7 Triglycerides Level 60 mg/dl Cholesterol Level 76 mg/dl HDL Cholesterol 31 mg/dl LDL Cholesterol, Calculated 33 mg/dl VLDL Cholesterol, Calculated 12 mg/dl Cholesterol/HDL Ratio 2.5 Assessment and Plan 65 years old smoker female presented with worsening of her chronic cough, with production of yellowish/greenish sputum. also has N/V and iron deficiency anemia. Worsening chronic cough/moderate to severe right pleural effusion with Hx of smoking CT chest showed possible Mass/enlarged LN with possible post obst pneumonia, switched Azithro to levofloxacin xarelto/ASA are on hold since 04/18 for possible thoracocenthesis and cytology analysis sputum Cx COPD without significant exacerbation no wheezing , also has good air entry B/L (diminished over her pleural effusion) will do Duoneb QID scheduled dose but will hold off steroids due to lack of wheezing and it will confuse the picture of the underlying diagnosis picture compatible with CHF congestion on CXR, elevated BNP ECHO pending s/p albumin 25 g with Lasix 40 mg IV 1 04/19 lasix to PO Cardiology is restarting b-delphine at low dose and will increase as able Hx of diabetes oral meds on hold started SSI GERD/Anemia with symptoms of upper GI bleed with a decrease in hemoglobin of about 3-1/2 g over the past year- low iron, elevated TIBC, normal B12 and folate continue Protonix bolus and then drip, GI c/s noted, already has EGD set up as outpt Also added venofer 100mg IV daily for 4 doses Pulmonary emboli history--for now hold Xarelto as noted above Resume once further procedures are determined COPD--continue Advair Diskus 250/50 one inhalation twice a day, Combivent restroom at 1 puff 4 times a day when necessary, and albuterol nebulizers 4 times a day when necessary. Add Duoneb QID scheduled Allergic rhinitis--continue Flonase 2 sprays each nostril daily. Hypercholesterolemia--for now hold atorvastatin 80 mg by mouth at bedtime. Hypothyroidism--change levothyroxine sodium 112 g by mouth daily to 56 g IV daily. DVT prophylaxis heparin SQ TID DC heparin when restart xarelto
--- NOTE | 2016-04-20 16:26 | ECHOCARDIOGRAM REPORT ---
*NOTICE TO RECEIVING REPUBLICAN AGENCY This information is strictly Confidential and protected under [place] law. [place] law prohibits you from making any further disclosure of this information unless further disclosure is expressly permitted by the written consent of the person to whom it pertains or is authorized by law. A general authorization for the release of medical or other information is not sufficient for this purpose. Hospital accepts no responsibility if the information is made available to any other person, INCLUDING THE PATIENT. Interpretation Summary * Name: IRMA BLACKWOOD Study Date: 04/20/2016 01:54 PM BP: 120/66 mmHg * Patient Location: .2T\S\E219\S\1 HR: 101 * : 1950 (M/d/yyy) Gender: Female Height: 62 in * Age: 65 yrs Ethnicity: [place] Weight: 130 lb * Ordering Physician: Kedar Correa * Referring Physician: Self, Referred * Performed By: Mary Jo Lin RDCS * * Reason For Study: SOB, CHF * BSA: 1.6 m2 * History: CHF, SOB * -- Conclusions -- * 1. Normal left ventricular size with hyperdynamic systolic function. EF 65-70%. No regional wall motion abnormalities. Septal motion consistent with bundle-branch block. No significant left ventricular hypertrophy. * 2. Bioprosthetic aortic valve with acceptable gradients. * 3. Bioprosthetic mitral valve with mildly increased velocities and gradients. * 4. Normal estimated right ventricular systolic pressure; RVSP 33 mmHg. * 5. Technically difficult study, enhanced with IV Definity. * 6. Compared to prior study on 04/10/2014, LV systolic function is now hyperdynamic. Procedure Details * A contrast injection of Definity was performed to improve assessment of LV function. * Contrast was injected into an intravenous site in the right arm. * One vial of Definity ultrasound contrast was diluted in normal saline to a total volume of 10 ml. A total of '2' ml of solution was administered during imaging. * Lot # [id number] of Definity utilized for procedure. * The attending nurse who injected the contrast agent was CLAUDINE POSADAS RN. * Expiration date MAR 14. Left Ventricle * Normal left ventricular size with hyperdynamic systolic function. EF 65-70%. No regional wall motion abnormalities. Septal motion consistent with bundle-branch block. No significant left ventricular hypertrophy. Right Ventricle * The right ventricle is normal in size and function. Atria * The left atrial size is normal. * Right atrial size is normal. * There is no evidence of atrial septal defect, but resolution does not allow assessment for a patent foramen ovale. Mitral Valve * Bioprosthetic mitral valve with mildly increased velocities and gradients. * Significant mitral regurgitation is absent. Tricuspid Valve * The tricuspid valve is not well visualized, but is grossly normal. * There is no tricuspid stenosis. * There is trace tricuspid regurgitation. Aortic Valve * Bioprosthetic aortic valve with acceptable gradients. * No hemodynamically significant valvular aortic stenosis. * There is no significant aortic regurgitation. Pulmonic Valve * The pulmonary valve is inadequately visualized, but the Doppler data is adequate for interpretation. * There is no pulmonic valvular stenosis. * There is no significant pulmonary regurgitation. Great Vessels * The aortic root is normal size. Pericardium/Pleural * There is no pericardial effusion. * Plural effusion. Great Vessels * Normal inferior vena cava size and collapsability with sniff indicates a normal right atrial pressure of 3 mmHg MMode 2D Measurements and Calculations IVSd 1.1 cm IVSs 1.3 cm LVIDd 4.0 cm LVIDs 3.2 cm LVPWd 1.0 cm LVPWs 1.3 cm IVS/LVPW 1.0 FS 20.3 % EDV(Teich) 70.6 ml ESV(Teich) 41.0 ml EF(Teich) 41.9 % EDV(cubed) 64.7 ml ESV(cubed) 32.8 ml EF(cubed) 49.3 % % IVS thick 22.6 % % LVPW thick 24.3 % LV mass(C)d 136.5 grams LV mass(C)dI 85.7 grams/m\S\2 LV mass(C)s 134.6 grams LV mass(C)sI 84.5 grams/m\S\2 SV(Teich) 29.6 ml SI(Teich) 18.6 ml/m\S\2 SV(cubed) 31.9 ml SI(cubed) 20.0 ml/m\S\2 Ao root diam 2.7 cm Ao root area 5.7 cm\S\2 LVAd ap4 30.0 cm\S\2 LVLd ap4 7.4 cm EDV(MOD-sp4) 98.7 ml EDV(sp4-el) 103.0 ml LVAs ap4 16.0 cm\S\2 LVLs ap4 6.3 cm ESV(MOD-sp4) 34.0 ml ESV(sp4-el) 34.3 ml EF(MOD-sp4) 65.5 % EF(sp4-el) 66.7 % LVAd ap2 25.1 cm\S\2 LVLd ap2 7.1 cm EDV(MOD-sp2) 72.9 ml EDV(sp2-el) 75.3 ml LVAs ap2 14.5 cm\S\2 LVLs ap2 7.2 cm ESV(MOD-sp2) 25.5 ml ESV(sp2-el) 24.8 ml EF(MOD-sp2) 65.1 % EF(sp2-el) 67.1 % LVLd %diff -4.46 % EDV(MOD-bp) 86.8 ml LVLs %diff 11.7 % ESV(MOD-bp) 31.4 ml EF(MOD-bp) 63.8 % SV(MOD-sp4) 64.6 ml SI(MOD-sp4) 40.6 ml/m\S\2 SV(MOD-sp2) 47.5 ml SI(MOD-sp2) 29.8 ml/m\S\2 SV(MOD-bp) 55.4 ml SI(MOD-bp) 34.8 ml/m\S\2 SV(sp4-el) 68.7 ml SI(sp4-el) 43.2 ml/m\S\2 SV(sp2-el) 50.6 ml SI(sp2-el) 31.8 ml/m\S\2 Doppler Measurements and Calculations MV V2 max 227.2 cm/sec MV max PG 20.6 mmHg MV V2 mean 148.8 cm/sec MV mean PG 10.4 mmHg MV V2 VTI 48.2 cm Ao V2 max 244.8 cm/sec Ao max PG 24.0 mmHg Ao max PG (full) 21.7 mmHg Ao V2 mean 156.5 cm/sec Ao mean PG 11.5 mmHg Ao mean PG (full) 10.3 mmHg Ao V2 VTI 35.5 cm LV V1 max PG 2.3 mmHg LV V1 mean PG 1.2 mmHg LV V1 max 75.7 cm/sec LV V1 mean 50.6 cm/sec LV V1 VTI 13.6 cm SV(Ao) 203.3 ml SI(Ao) 127.7 ml/m\S\2 TR max radames 272.0 cm/sec RVSP(TR) 32.6 mmHg RAP systole 3.0 mmHg
--- NOTE | 2016-04-20 17:49 | PULMONARY PROGRESS NOTE ---
DATE: 04/20/2016 TIME: 5:20 p.m. SUBJECTIVE: The patient feels fatigued. She is less short of breath than before thoracentesis, but she is still somewhat short of breath. She has some cough. She expectorates small amounts of mucus. She is not having chest pains. She states that other time she had thoracentesis done she felt better quicker. OBJECTIVE: GENERAL: The patient appeared comfortable at rest. She has been afebrile and temperature most currently is 37 degrees. EARS, NOSE, THROAT: Unremarkable. VITAL SIGNS: Heart rate was elevated at 108. Blood pressure 107/61. She has a dorsal kyphosis. Pulse oximetry on room air was 94%. LUNGS: The breath sounds are diminished in both lower lobes. EXTREMITIES: Showed no cyanosis, clubbing or edema. LABORATORY DATA: White count today is 9.65. Hemoglobin is 8.7. Platelets are 327,000. INR is 1.2 and PTT was 31.9. Pleural fluid LDH was 142 and pleural fluid protein was 4.0. These are compatible with an exudate. There were 14,000 red blood cells in the fluid. Cytology is still pending. Electrolytes show sodium 137, potassium 3.1, chloride 96, bicarbonate 29. IMAGING DATA: The patient's chest x-ray done today shows no change in the [id number] bilateral effusions. The CAT scan of the chest done recently shows a pretracheal lymph node measuring 13 mm. It is difficult to evaluate the scan in part because of no contrast, but there seems to be possible fullness in the right hilar area with narrowing of a bronchus in the area of the right lower lobe. Neoplasm could not be excluded. The patient was uncertain if she had bronchoscopy before. ASSESSMENT: 1. Bilateral pleural effusions -- exudative on the right -- etiology to be determined. 2. Pretracheal lymph node enlargement. 3. Rule out a right hilar mass. 4. Probable chronic obstructive pulmonary disease. 5. Anemia. 6. Hodgkin's disease by history. COMMENTS AND RECOMMENDATIONS: The case was discussed with Dr. Steele. We discussed the right hilar findings. His plan is to put a PleurX in. Once the fluid has been drained, we will repeat a CAT scan, but do with contrast. She would need to have steroids and Benadryl prophylaxis because of her history of iodine allergy. She has had CAT scans done with prophylaxis before and did fine with them. Hopefully, we would get a better image of the right hilum under those circumstances. ZANDRA
[2016-04-20] MEDS: LEVOFLOXACIN / D5W 500 MG in PREMIXED IN D5W 100 ML IV SCH (20:08)
[2016-04-20] MEDS: POTASSIUM CHLORIDE 20 MEQ TABCR PO SCH (20:09)
[2016-04-20] MEDS: ATORVASTATIN 40 MG TAB PO SCH (20:09)
[2016-04-20] MEDS: DOCUSATE SODIUM 100 MG CAP PO SCH (20:11)
--- NOTE | 2016-04-20 20:23 | SURGERY PROGRESS NOTE ---
DATE: 04/20/2016 Mrs. Preston is much improved. She is off of oxygen. She feels much better. Her x-ray really did not look much different. We drained 1250 mL yesterday. I am going to offer Mrs. Preston a PleurX catheter. We will insert this in the morning. I explained to the patient we may be able to infuse thrombolytics and Pulmozyme depending on if she is completely drained. She understands.
[2016-04-21] VITALS (11 sets, daily range): BP systolic 90–120; BP diastolic 51–67; PULSE 73–103; TEMP 36.4–36.8; O2SAT 90–98
[2016-04-21] MEDS: BACLOFEN 10 MG TAB PO PRN ×3 (00:18→20:05)
[2016-04-21] MEDS: DIAZEPAM 5MG TAB PO PRN ×2 (00:18→22:17)
[2016-04-21] MEDS: LEVOTHYROXINE 112 MCG TAB PO SCH (03:55)
[2016-04-21] MEDS: METOPROLOL TARTRATE 1 MG/ML VIAL IV. SCH ×5 (03:58→19:50)
[2016-04-21] MEDS: HEPARIN SOD 5000 UNIT/0.5 ML CARP SQ SCH ×3 (05:00→22:17)
[2016-04-21] MEDS: INSULIN ASPART 100 UNITS/ML 3 ML PEN SC SCH ×4 (07:00→22:55)
[2016-04-21] MEDS: ALBUT/IPRATROP 3MG/0.5MG NEB 3 ML VIAL INH SCH ×2 (07:25→19:26)
[2016-04-21] MEDS: FLUTICASONE/SALMETEROL 250/50 (ADVAIR) 14 PUFF/1 INHALER INH SCH ×2 (08:41→19:52)
[2016-04-21] MEDS: FLUTICASONE PROPIONATE NA SPR 16 GM BTL NAE SCH (08:41)
[2016-04-21] MEDS: PANTOprazole INJ 40 MG in SYRINGE 0 ML IV SCH ×2 (08:41→19:53)
[2016-04-21] MEDS: DOCUSATE SODIUM 100 MG CAP PO SCH ×2 (08:42→19:53)
[2016-04-21] MEDS: POTASSIUM CHLORIDE 20 MEQ TABCR PO SCH ×2 (08:43→19:52)
[2016-04-21] MEDS: METOPROLOL SUCC 50MG EXT REL TAB PO SCH (08:44)
[2016-04-21] MEDS: FUROSEMIDE 40 MG TAB PO SCH (08:44)
[2016-04-21] MEDS: CHOLECALCIFEROL 1000 INTER.UNIT TAB PO SCH (08:45)
--- NOTE | 2016-04-21 10:27 | CARDIOLOGY PROGRESS NOTE ---
DATE: 04/21/2016 TIME: 10:01 a.m. SUBJECTIVE: She believes that her breathing continues to improve on a daily basis. She denies syncope, near syncope, palpitations or chest pain. She is scheduled to undergo a PleurX catheter placement later today. We had a discussion today regarding her CT scan findings. This was also discussed yesterday with Dr. Robertson of pulmonology and plans on following up with CT scan with IV contrast following the procedure at some point. OBJECTIVE: VITAL SIGNS: Temperature 36.8 degrees, heart rate 94 beats per minute, respiration rate 16, blood pressure 97/59 mmHg, oxygen saturation 98% on room air. I's and O's negative 1.5 liters yesterday. Weight is 59 kilograms. However, the weight has not changed in 3 days despite being negative fluid balance. GENERAL: In no acute distress. She is alert. NECK: No appreciable JVD. CARDIAC EXAM: No ventricular heave, regular, normal S1, S2, 2/6 early peaking systolic ejection murmur best heard at the right upper sternal border. LUNGS: Decreased breath sounds at the bases, otherwise clear. ABDOMEN: Soft, nontender, nondistended. Normoactive bowel sounds. EXTREMITIES: No cyanosis or edema. PSYCHIATRIC: Affect appears appropriate. MEDICATIONS: Include Lipitor 80 mg at bedtime, Lasix 40 mg p.o. daily, heparin 5,000 units subQ q. 8 hours, Levaquin, metoprolol succinate 50 mg daily, Protonix 40 mg IV daily, potassium chloride 20 mEq p.o. b.i.d. Telemetry personally reviewed. Heart rate trend has improved after initiating metoprolol succinate. No arrhythmia. Chart reviewed. LABORATORY DATA: Glucose 102. Echo images personally reviewed from 04/20/2016: Normal LV size with hyperdynamic systolic function. EF 65-70%. No regional wall motion abnormalities. Septal motion consistent with bundle branch block. Bioprosthetic aortic valve with acceptable gradients. Mildly increased velocities ingredients for bioprosthetic mitral valve, but similar to prior study on 04/10/2014. RVSP 33 mmHg. ASSESSMENT AND PLAN: 1. Chronic diastolic congestive heart failure: She appears euvolemic. Basic metabolic panel ordered today, especially given hypokalemia yesterday. Continue Lasix 40 mg p.o. daily for now. 2. Pleural effusion: Exudative process. Concern for mass on CT scan of the chest. This will be followed up as per pulmonology. PleurX catheter planned for later today with Dr. Steele for recurrent pleural effusions. 3. Tachycardia: Likely secondary to discontinuation of beta delphine. This has improved with metoprolol succinate 50 mg daily. She had been taking 150 mg. This will be slowly titrated as blood pressure will allow. Her worsened anemia and also aggressive diuresis could also play a role in tachycardia. 4. Cardiomyopathy: Left ventricular systolic function is actually hyperdynamic. Functioning improves after ablation of atrial tachycardia. 5. Paroxysmal atrial fibrillation: We discussed once again anticoagulation options. She is agreeable for Coumadin given her mitral and aortic bioprosthetic valve. Therefore, when safe from a procedural standpoint, we would start Coumadin and with close followup in anticoagulation clinic. Continue beta delphine as above. 6. Bioprosthetic aortic and mitral valves: The velocities and gradients are elevated for the mitral valve, but appeared to be stable from 2015. Her hyperdynamic left ventricular systolic function could be playing a role in this and the inflow profiles are not typical for mitral stenosis. Continue to follow over time. 7. Anemia: Per primary service. There appears to be iron deficient anemia. 8. Hypokalemia: A repeat basic metabolic panel will be ordered today given her diuretics to ensure that her potassium level has improved with some supplementation. 9. CAD status post CABG and RCA PCI: Will resume aspirin 81 mg daily to help prevent in stent thrombosis. Continue beta-delphine. No angina. 10. Disposition: Cardiology will continue to follow. Communication with Dr. Padilla regarding the patient's care. ZANDRA
[2016-04-21 11:22] LABS: BUN/CREATININE RATIO 18.7 (10-20); CALCIUM 9.4 mg/dl (8.5-10.1); CREATININE 0.63 mg/dl (0.60-1.20); POTASSIUM 3.6 mmol/L (3.5-5.1)
--- NOTE | 2016-04-21 11:25 | PULMONARY PROGRESS NOTE ---
DATE: 04/21/2016 TIME: 10:55 a.m. SUBJECTIVE: The patient states she feels better than she has since Thanksgiving. Her breathing she feels is much improved today. Her cough is minimal to almost nonexistent. Her sense of wellbeing is better. OBJECTIVE: GENERAL: The patient appears very comfortable. She has been afebrile. EARS, NOSE, THROAT: Exam is unremarkable. VITAL SIGNS: Heart rate is 94 beats per minute. Blood pressure is 97/59. Oxygen saturation this morning is 98% on room air. There is a kyphosis. LUNGS: The breath sounds are again diminished at both lung bases and there is dullness in both bases. Respiratory rate is 16 breaths per minute. EXTREMITIES: Showed no cyanosis, clubbing or edema. LABORATORIES: Pending. Pleural fluid cytology again was negative. IMPRESSIONS: 1. Bilateral pleural effusions -- exudative on right. 2. Rule out right hilar mass. 3. Pretracheal lymphadenopathy. 4. Chronic obstructive pulmonary disease. 5. History of Hodgkin's disease. 6. Anemia. The case was discussed yesterday with Dr. Steele and also with Dr. Correa. Dr. Steele will be inserting a PleurX catheter today. After the fluid on that side is removed, we would like to do a repeat CAT scan of the chest with contrast. This will require prepping her with steroids and Benadryl. We then can get a better evaluation of the right hilar region. Would continue with her other therapies as present.
[2016-04-21] MEDS ORDERED: LIDOCAINE HCL 1% 20 ML VIAL ONE (12:41)
--- NOTE | 2016-04-21 12:53 | Progress Note ---
Subjective Date of Service: Apr 21, 2016. Subjective Pt evaluation today including: conversation w/ patient "I feel the best that I've felt in months." Pt had an episode of chest pressure last night, but did not alert nursing. It has since resolved. She ate most of her breakfast this AM. Is ambulating around the room taking care of her mehta , etc and is not SOB. Pt denies fever, abd pain, n/v/c/d, LE pain or swelling. ROS as noted above, otherwise neg. Problem List Medical Problems: (1) CHF (congestive heart failure) Status: Acute (2) Dyspnea Status: Acute (3) Pleural effusion Status: Acute Objective Vital Signs Date Time Temp Pulse Resp B/P Pulse Ox O2 Delivery O2 Flow Rate FiO2 04/21/16 11:50 98 99/59 04/21/16 11:07 36.8 98 18 99/59 93 Room Air 04/21/16 08:00 94 97/59 04/21/16 07:25 88 16 98 Room Air 04/21/16 07:19 36.8 94 18 97/59 92 Room Air 04/21/16 04:00 Room Air 04/21/16 03:37 36.4 93 17 105/54 93 Room Air 04/21/16 00:04 36.7 103 18 90/51 90 Room Air 04/20/16 23:59 98 Room Air 04/20/16 23:35 90/51 04/20/16 20:00 Room Air 04/20/16 19:26 92 16 95 Room Air 04/20/16 19:18 37.0 94 16 98/49 93 Room Air 04/20/16 16:00 94 Room Air 04/20/16 16:00 108 107/61 04/20/16 15:52 102 16 94 Room Air 04/20/16 15:21 37.0 95 18 105/64 96 Room Air Physical Exam Comments: General Appearance: WD/WN, no apparent distress Respiratory/Chest: no respiratory distress, + decreased breath sounds Cardiovascular: regular rate, rhythm, no edema Abdomen: non tender, soft Extremities: non-tender, no pedal edema Neurologic/Psychiatric: alert, normal mood/affect Skin: normal color, warm/dry Laboratory Results Last 24 Hours Test 04/20/16 13:15 04/20/16 16:08 1/23/17 20:21 04/21/16 06:38 Hemoglobin 9.1 g/dL Hematocrit 28.2 % Bedside Glucose 139 mg/dl 182 mg/dl 102 mg/dl Test 04/21/16 10:42 04/21/16 11:18 Sodium Level 137 mmol/L Potassium Level 3.6 mmol/L Chloride Level 96 mmol/L Carbon Dioxide Level 31 mmol/L Anion Gap 10.0 mmol/L Blood Urea Nitrogen 12 mg/dl Creatinine 0.63 mg/dl Est Creatinine Clear Calc Drug Dose 71.4 ml/min Estimated GFR () 109.9 Estimated GFR (Non- 94.8 BUN/Creatinine Ratio 18.7 Random Glucose 117 mg/dl Calcium Level 9.4 mg/dl Bedside Glucose 128 mg/dl Assessment and Plan 65 years old smoker female presented with worsening of her chronic cough, with production of yellowish/greenish sputum. also has N/V and iron deficiency anemia. Worsening chronic cough/moderate to severe right pleural effusion with Hx of smoking CT chest showed possible Mass/enlarged LN with possible post obst pneumonia, switched Azithro to levofloxacin xarelto/ASA are on hold since 04/18 for possible thoracocenthesis and cytology analysis sputum Cx PleurX cath being placed 04/21 COPD without significant exacerbation no wheezing , also has good air entry B/L (diminished over her pleural effusion) will do Duoneb QID scheduled dose congestion on CXR, elevated BNP ECHO noted s/p albumin 25 g with Lasix 40 mg IV 1 04/19 lasix to PO Cardiology is restarting b-delphine at low dose and will increase as able Hx of diabetes oral meds on hold started SSI GERD/Anemia with symptoms of upper GI bleed with a decrease in hemoglobin of about 3-1/2 g over the past year- low iron, elevated TIBC, normal B12 and folate continue Protonix bolus and then drip, GI c/s noted, already has EGD set up as outpt Also added venofer 100mg IV daily for 4 doses Pulmonary emboli history--for now hold Xarelto as noted above Will resume anticoag with coumadin once further procedures are determined COPD--continue Advair Diskus 250/50 one inhalation twice a day, Combivent restroom at 1 puff 4 times a day when necessary, and albuterol nebulizers 4 times a day when necessary. Add Duoneb QID scheduled Allergic rhinitis--continue Flonase 2 sprays each nostril daily. Hypercholesterolemia--for now hold atorvastatin 80 mg by mouth at bedtime. Hypothyroidism--change levothyroxine sodium 112 g by mouth daily to 56 g IV daily. DVT prophylaxis heparin SQ TID
--- NOTE | 2016-04-21 13:59 | DIAGNOSTIC IMAGING REPORT ---
CHEST ONE VIEW PORTABLE CLINICAL HISTORY: pleurex insertion PLEURAL EFFUSION COMPARISON STUDY: 04/17/2016 FINDINGS: The cardiac and mediastinal contours remain stable. There is scattered calcified granulomas as well as calcified mediastinal lymph nodes. There are bilateral pleural effusions right greater than left. There is been interval insertion of a right-sided Pleurx catheter. There is a right apical pneumothorax the pleural separation of 18 mm.[ IMPRESSION: 1. Interval insertion of a right-sided Pleurx catheter. Interval development of an 18 mm right apical pneumothorax. Electronically signed by: Jeromy Torres M.D. 04/21/2016 1:57 PM Dictated Date/Time: 04/21/2016 1:56 PM
[2016-04-21] MEDS: ATORVASTATIN 40 MG TAB PO SCH (19:53)
[2016-04-21] MEDS: LEVOFLOXACIN / D5W 500 MG in PREMIXED IN D5W 100 ML IV SCH (19:53)
--- NOTE | 2016-04-21 20:55 | OPERATIVE REPORT ---
DATE OF OPERATION: 04/21/2016 PROCEDURE: Insertion of a right PleurX catheter. SURGEON: Dr. Steele. STATISTICAL METHODS TEACHER: Chito Busby. ANESTHESIA: Local. DESCRIPTION OF PROCEDURE: The patient's stayed in the room. The patient's right chest was prepped and draped in the usual sterile fashion. Under ultrasound guidance, we had marked a spot at about the eighth interspace in the posterior axillary line. Skin wheal was raised, a 25 gauge needle, 1% Xylocaine and a large bore needle was used to enter the space and anesthetized the deeper muscle tissues and the pleura. There was free flowing fluid and a guidewire was inserted through the needle and the needle removed. I made a 1 cm incision over this insertion site. About 10 cm anterior to this, another skin wheal was raised 25 gauge needle, 1% Xylocaine without epinephrine. A 1 cm incision was made. A long needle was used to anesthetize subcutaneous tissues between these 2 incisions and a tunnel was attached to the PleurX catheter and dragged from the anterior to the posterior incision, the tunneler removed. Introducer sheath was slid over the guidewire to enlarge the insertion tract and then removed. I then removed the inner cannula and guidewire inserted PleurX catheter without difficulty through this peel away sheath which was removed. About 600 mL of serous tea-colored fluid was drained. She began having reexpansion pain, so we stopped. The insertion site was closed with one single 3-0 silk suture and this was used to anchor the catheter to the patient's skin. The more posterior incision was closed with 2-0 silk sutures and antimicrobial dressings were placed. The patient tolerated it very well. I attest to the content of the Intraoperative Record and any orders documented therein. Any exceptio ns are noted below.
[2016-04-21] MEDS: TRAMADOL HCL 50 MG TAB PO PRN (22:08)
[2016-04-22] VITALS (13 sets, daily range): BP systolic 103–128; BP diastolic 58–66; PULSE 77–99; TEMP 36.5–36.8; O2SAT 93–99
[2016-04-22] MEDS: METOPROLOL TARTRATE 1 MG/ML VIAL IV. SCH ×6 (03:55→20:30)
[2016-04-22] MEDS: TRAMADOL HCL 50 MG TAB PO PRN ×2 (05:21→21:20)
[2016-04-22] MEDS: LEVOTHYROXINE 112 MCG TAB PO SCH (05:21)
[2016-04-22] MEDS: HEPARIN SOD 5000 UNIT/0.5 ML CARP SQ SCH ×3 (05:24→21:22)
[2016-04-22 06:15] LABS: HEMATOCRIT 28.2 % (37-47); MEAN CELL VOLUME 79.7 fL (80-100); MEAN CORPUSCULAR HEMOGLOBIN 25.4 pg (25-34); MEAN CORPUSCULAR HGB CONC 31.9 g/dl (32-36); MEAN PLATELET VOLUME 9.4 fL (7.4-10.4); PLATELET COUNT 327 K/uL (130-400); RED BLOOD COUNT 3.54 M/uL (4.2-5.4); WHITE BLOOD COUNT 11.21 K/uL (4.8-10.8)
[2016-04-22 06:47] LABS: BUN/CREATININE RATIO 23.1 (10-20); CREATININE 0.53 mg/dl (0.60-1.20); POTASSIUM 4.1 mmol/L (3.5-5.1)
[2016-04-22] MEDS: INSULIN ASPART 100 UNITS/ML 3 ML PEN SC SCH ×4 (07:00→21:22)
[2016-04-22] MEDS: ALBUT/IPRATROP 3MG/0.5MG NEB 3 ML VIAL INH SCH ×4 (07:00→20:01)
--- NOTE | 2016-04-22 07:27 | DIAGNOSTIC IMAGING REPORT ---
CHEST ONE VIEW PORTABLE HISTORY: pleural effusion COMPARISON: Chest 04/21/2016. FINDINGS: Small right hydropneumothorax has slightly decreased in size. This measures a maximal pleural gap of 1.5 cm. Calcified left hilar lymph nodes and bilateral calcified granulomas are again noted. Small left pleural effusion persist. There are surgical clips within the upper abdomen. The heart is normal in size. Mild pulmonary vascular congestion without overt edema. The right basilar chest tube is unchanged in position. IMPRESSION: 1. Slight decrease in size in the small right-sided hydropneumothorax. Right basilar chest tube remains unchanged in position. 2. Small left pleural effusion persists. 3. Mild pulmonary vascular congestion without overt edema. Electronically signed by: Beck Dixon M.D. 04/22/2016 7:25 AM Dictated Date/Time: 04/22/2016 7:23 AM
[2016-04-22] MEDS: FLUTICASONE/SALMETEROL 250/50 (ADVAIR) 14 PUFF/1 INHALER INH SCH ×2 (08:46→21:17)
[2016-04-22] MEDS: FLUTICASONE PROPIONATE NA SPR 16 GM BTL NAE SCH (08:47)
[2016-04-22] MEDS: PANTOprazole INJ 40 MG in SYRINGE 0 ML IV SCH ×2 (08:47→21:17)
[2016-04-22] MEDS: DOCUSATE SODIUM 100 MG CAP PO SCH ×2 (08:47→21:18)
[2016-04-22] MEDS: POTASSIUM CHLORIDE 20 MEQ TABCR PO SCH ×2 (08:49→21:19)
[2016-04-22] MEDS: FUROSEMIDE 40 MG TAB PO SCH (08:50)
[2016-04-22] MEDS: METOPROLOL SUCC 50MG EXT REL TAB PO SCH (08:50)
[2016-04-22] MEDS: CHOLECALCIFEROL 1000 INTER.UNIT TAB PO SCH (08:51)
[2016-04-22] MEDS ORDERED: ASPIRIN 81 MG ECTAB PO SCH (09:00)
--- NOTE | 2016-04-22 12:38 | Progress Note ---
Subjective Date of Service: Apr 22, 2016. Subjective Pt evaluation today including: conversation w/ patient, conversation w/ customer consultant Pt had pain related to the pleurx, but this is improving. She continues to feel much better than she has over the last few months. Eating without issue. No SOB or chest pain. Pt denies fever, abd pain, n/v/c/d, LE pain or swelling. ROS as noted above, otherwise neg. Problem List Medical Problems: (1) CHF (congestive heart failure) Status: Acute (2) Dyspnea Status: Acute (3) Pleural effusion Status: Acute Objective Vital Signs Date Time Temp Pulse Resp B/P Pulse Ox O2 Delivery O2 Flow Rate FiO2 04/22/16 11:29 98 16 97 Room Air 04/22/16 11:01 36.6 88 18 112/64 96 Room Air 04/22/16 09:51 Room Air 04/22/16 08:00 Room Air 04/22/16 07:35 36.5 92 16 103/58 93 Room Air 04/22/16 07:11 77 128/66 04/22/16 07:00 77 16 95 Room Air 04/22/16 04:00 95 Room Air 04/22/16 03:55 89 128/66 04/22/16 03:42 36.7 91 17 128/66 97 Room Air 04/22/16 00:00 95 Room Air 04/22/16 00:00 98 120/67 04/21/16 23:15 36.7 98 20 120/67 95 04/21/16 20:00 95 Room Air 04/21/16 20:00 36.5 102 18 114/64 95 Room Air 04/21/16 19:50 102 114/64 04/21/16 19:26 73 16 94 Room Air 04/21/16 16:00 Room Air 04/21/16 16:00 97 103/63 04/21/16 15:35 36.8 97 16 103/63 98 Room Air 04/21/16 12:57 94 Room Air 04/21/16 12:52 36.6 100 18 103/67 94 Room Air Physical Exam General Appearance: no apparent distress, + thin Respiratory/Chest: no respiratory distress, + decreased breath sounds, + crackles Cardiovascular: regular rate, rhythm, no edema Abdomen: non tender, soft Extremities: non-tender, no pedal edema Neurologic/Psychiatric: alert, normal mood/affect Skin: normal color, warm/dry Laboratory Results Last 24 Hours Test 04/21/16 13:40 04/21/16 16:21 04/21/16 20:42 04/22/16 05:56 Pleural Fluid pH 7.54 Bedside Glucose 166 mg/dl 212 mg/dl White Blood Count 11.21 K/uL Red Blood Count 3.54 M/uL Hemoglobin 9.0 g/dL Hematocrit 28.2 % Mean Corpuscular Volume 79.7 fL Mean Corpuscular Hemoglobin 25.4 pg Mean Corpuscular Hemoglobin Concent 31.9 g/dl RDW Standard Deviation 51.2 fL RDW Coefficient of Variation 18.0 % Platelet Count 327 K/uL Mean Platelet Volume 9.4 fL Nucleated RBC Absolute Count (auto) 0.07 K/uL Nucleated Red Blood Cells % 0.7 % Sodium Level 136 mmol/L Potassium Level 4.1 mmol/L Chloride Level 97 mmol/L Carbon Dioxide Level 31 mmol/L Anion Gap 8.0 mmol/L Blood Urea Nitrogen 12 mg/dl Creatinine 0.53 mg/dl Est Creatinine Clear Calc Drug Dose 84.8 ml/min Estimated GFR () 116.3 Estimated GFR (Non- 100.3 BUN/Creatinine Ratio 23.1 Random Glucose 95 mg/dl Calcium Level 9.0 mg/dl Test 04/22/16 06:51 04/22/16 11:13 Bedside Glucose 106 mg/dl 109 mg/dl Assessment and Plan 65 y/o smoker female presented with worsening of her chronic cough, with production of yellowish/greenish sputum. also has N/V and iron deficiency anemia. Worsening chronic cough/moderate to severe right pleural effusion with Hx of smoking CT chest showed possible Mass/enlarged LN with possible post obst pneumonia, switched Azithro to levofloxacin xarelto/ASA are on hold since 04/18 for potential ongoing procedures sputum Cx Thoracentesis 04/19, path neg for malignancy PleurX cath placed 04/21 with good drainage Repeat CT after she is premedicated for her contrast allergy COPD without significant exacerbation no wheezing, also has good air entry B/L (diminished over her pleural effusion) will do Duoneb QID scheduled dose congestion on CXR, elevated BNP ECHO noted s/p albumin 25 g with Lasix 40 mg IV 1 04/19 lasix to PO Cardiology is restarting b-delphine at low dose and will increase as tolerated Hx of diabetes oral meds on hold started SSI GERD/Anemia with symptoms of upper GI bleed with a decrease in hemoglobin of about 3-1/2 g over the past year- low iron, elevated TIBC, normal B12 and folate continue Protonix bolus and then drip, GI c/s noted, already has EGD set up as outpt Also added venofer 100mg IV daily for 4 doses Pulmonary emboli history--for now hold Xarelto as noted above Will resume anticoag with coumadin once further procedures are determined COPD--continue Advair Diskus 250/50 one inhalation twice a day, Combivent restroom at 1 puff 4 times a day when necessary, and albuterol nebulizers 4 times a day when necessary. Add Duoneb QID scheduled Allergic rhinitis--continue Flonase 2 sprays each nostril daily. Hypercholesterolemia--for now hold atorvastatin 80 mg by mouth at bedtime. Hypothyroidism--as at home DVT prophylaxis heparin SQ TID
[2016-04-22] MEDS: SODIUM CHLORIDE 0.9% 1000ML 1,000 ML IV SCH ×3 (14:19→20:00)
[2016-04-22] MEDS ORDERED: DiphenhydrAMINE INJ 12.5 MG in SYRINGE 0 ML IV ONE (15:20)
[2016-04-22] MEDS ORDERED: METHYLPREDNISOLONE IV 40 MG in SYRINGE 0 ML IV ONE (15:20)
--- NOTE | 2016-04-22 16:32 | DIAGNOSTIC IMAGING REPORT ---
CT SCAN OF THE CHEST WITH IV CONTRAST CLINICAL HISTORY: Lymphadenopathy and pleural effusion. COMPARISON STUDY: Chest CT scans dated 04/19/2016 and 02/21/2014. TECHNIQUE: Following the IV administration of 84 cc of Optiray 320, CT scan of the thorax was performed from the thoracic inlet to the upper abdomen. Images are reviewed in the axial, sagittal, and coronal planes. IV contrast was administered without complication. CT DOSE: 216.33 mGy.cm FINDINGS: Thyroid: Imaged portions of the thyroid gland are normal in size and attenuation. Thoracic aorta: There is atherosclerotic calcification of the thoracic aorta, which is normal in caliber and demonstrates standard 3-vessel arch anatomy. No dissection is seen. Pulmonary vasculature: The pulmonary trunk is normal in caliber. There are no filling defects identified in the central pulmonary vessels to indicate pulmonary embolus. Note that this examination was not protocoled for evaluation of the pulmonary arteries. Heart: The patient is status post midline sternotomy. The heart is normal in size and configuration, and without pericardial effusion. The coronary arteries and aortic valve leaflets are densely calcified. Findings suggest previous aortic valve surgery. Lungs and pleural spaces: A pleural drain is present at the right lung base. There is a small residual right pleural effusion. There is also a small right apical pneumothorax. Postoperative change is suggested in the right lung. A moderate pleural effusion is seen at the left lung base with associated atelectasis. 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 A left lower lobe pulmonary nodule is partially visualized on image #107 and measures up to 5 mm. This is been present dating back to 2013. No airspace consolidation is seen typical for pneumonia. The trachea and central airways are clear. Mediastinum: Prominent mediastinal lymph nodes are less apparent than on the 04/19/2016 examination. A precarinal node on image #111 measures 12 mm in short axis. There are calcified mediastinal lymph nodes. Anabel: Calcified hilar nodes are identified. Axillae: There is no axillary lymphadenopathy. Upper abdomen: Cholecystectomy clips are identified. Pneumobilia is noted. There is a moderate and heterogeneous appearing hiatal hernia. Abnormality involving the upper pole of the left kidney containing foci of macroscopic fat is unchanged from 2014. The spleen is not identified and presumed surgically absent. Skeletal structures: The skeletal structures are heterogeneously osteopenic. No lytic or blastic bony lesions are seen. Calcific tendinopathy is noted in the right shoulder. IMPRESSION: 1. A pleural drain has been placed at the right lung base. There is a small left-sided hydropneumothorax as above. 2. There is a moderate left pleural effusion with associated atelectasis. 3. There is no airspace consolidation typical for pneumonia. 4. Paramediastinal fibrosis suggests previous radiation therapy. 5. No significant mediastinal or hilar lymphadenopathy is seen. 6. Additional chronic findings as above. Electronically signed by: Jean Gant M.D. 04/22/2016 4:30 PM Dictated Date/Time: 04/22/2016 4:20 PM
--- NOTE | 2016-04-22 18:16 | SURGERY PROGRESS NOTE ---
DATE: 04/22/2016 Ms. Preston was seen today on 04/22/2016. She looks very good. She denies pain. She feels better. She is on room air with good vital signs. She actually walks although it is difficult for her if she does not have "good balancing." This study done with IV contrast was evaluated and shows really not much in the way of mediastinal adenopathy. In addition, we have had excellent drainage with our Pleurx catheter, of her right pleural effusion. She has a tiny pneumothorax on the right. On the left side, she does have a small pleural effusion. In addition, she has a 5 mm nodule that is unchanged over the last 2-3 years in the left. At this point, I would not offer anything else except to follow her along until her Pleurx catheter is removed.
--- NOTE | 2016-04-22 18:51 | PULMONARY PROGRESS NOTE ---
DATE: 04/22/2016 TIME: 5:45 p.m. SUBJECTIVE: The patient feels better today. The pain from the PleurX catheter is less. Her shortness of breath feels better to her. Overall, she is feeling much better. OBJECTIVE: GENERAL: The patient is comfortable at rest. She remains afebrile with a temperature of 36.8. EARS, NOSE, THROAT: Exam is unchanged. HEART: Heart rate is 93 beats per minute. VITAL SIGNS: Blood pressure 107/62. LUNGS: Lung anne revealed fairly good breath sounds on the right. The left lung still has diminished breath sounds in the left base. Very mild rhonchi are heard bilaterally. Oxygen saturation is 99% on room air. EXTREMITIES: Showed no edema. The patient did have a CAT scan of the chest this afternoon done with contrast and after the fluid has been removed. I could not pull up the images. However, the report is very encouraging. Paramediastinal fibrosis was reported. This would be from her prior radiation. No significant adenopathy was noted. No definite lung mass was seen. There was a small left lower lobe nodule that has been seen as far back as 2013 without change. LABORATORY DATA: White count today is 11.21. Hemoglobin is 9. Platelets are 327,000. Electrolytes show sodium 136, potassium 4.1, chloride 97, bicarbonate 31. BUN was 12 with a creatinine of 0.53. IMPRESSION: 1. Bilateral pleural effusions - exudate on right. 2. Mild pretracheal lymphadenopathy. 3. Chronic obstructive pulmonary disease. 4. History of Hodgkin's disease. 5. Anemia. COMMENTS: The report of the latest CAT scan would not suggest evidence of a right hilar mass. I will hopefully be able to review this tomorrow. Technically, it could not be pulled up for me at this time. Would continue with her other treatment as at present.
[2016-04-22] MEDS: LEVOFLOXACIN / D5W 500 MG in PREMIXED IN D5W 100 ML IV SCH (21:17)
[2016-04-22] MEDS: ASPIRIN 81 MG ECTAB PO SCH (21:18)
[2016-04-22] MEDS: ATORVASTATIN 40 MG TAB PO SCH (21:19)
[2016-04-22] MEDS: BACLOFEN 10 MG TAB PO PRN (21:19)
[2016-04-23] VITALS (16 sets, daily range): BP systolic 92–121; BP diastolic 50–70; PULSE 88–99; TEMP 36.5–36.9; O2SAT 95–99
[2016-04-23] MEDS: SODIUM CHLORIDE 0.9% 1000ML 1,000 ML IV SCH (01:00)
[2016-04-23] MEDS: METOPROLOL TARTRATE 1 MG/ML VIAL IV. SCH ×6 (04:00→20:00)
[2016-04-23] MEDS: LEVOTHYROXINE 112 MCG TAB PO SCH (06:29)
[2016-04-23] MEDS: HEPARIN SOD 5000 UNIT/0.5 ML CARP SQ SCH ×3 (06:31→20:54)
[2016-04-23] MEDS: ALBUT/IPRATROP 3MG/0.5MG NEB 3 ML VIAL INH SCH ×4 (06:51→20:02)
[2016-04-23] MEDS: INSULIN ASPART 100 UNITS/ML 3 ML PEN SC SCH ×4 (07:00→20:41)
[2016-04-23] MEDS: FLUTICASONE PROPIONATE NA SPR 16 GM BTL NAE SCH (07:50)
[2016-04-23] MEDS: PANTOprazole INJ 40 MG in SYRINGE 0 ML IV SCH ×2 (07:50→20:32)
[2016-04-23] MEDS: FLUTICASONE/SALMETEROL 250/50 (ADVAIR) 14 PUFF/1 INHALER INH SCH ×2 (07:50→20:31)
[2016-04-23] MEDS: POTASSIUM CHLORIDE 20 MEQ TABCR PO SCH ×2 (07:51→20:32)
[2016-04-23] MEDS: CHOLECALCIFEROL 1000 INTER.UNIT TAB PO SCH (07:51)
[2016-04-23] MEDS: DOCUSATE SODIUM 100 MG CAP PO SCH ×2 (07:52→20:29)
[2016-04-23] MEDS: FUROSEMIDE 40 MG TAB PO SCH (07:52)
[2016-04-23] MEDS: METOPROLOL SUCC 50MG EXT REL TAB PO SCH (07:53)
--- NOTE | 2016-04-23 10:16 | SURGERY PROGRESS NOTE ---
DATE: 04/23/2016 Ms. Preston was seen today. She looks very good. She apparently is going to be discharged to [facility]. Her saturation is between 95-97% on room air. She was drained this morning for approximately 225 mL. I would continue daily drainage for the time being. Her x-ray looks quite good, is quite happy with her CT scan yesterday. I will see her in the office and we will set up followup CT scans. I would like to thank the hospitalist service for asking me to see this very nice patient.
--- NOTE | 2016-04-23 14:27 | PULMONARY PROGRESS NOTE ---
DATE: 04/23/2016 TIME: 01:40 p.m. SUBJECTIVE: The patient is feeling overall better today. She has minimal pain. She has no significant shortness of breath. Her strength seems to be somewhat improved. I had the opportunity to review the CAT scan of the chest that was done yesterday. I concur with the radiologist's report and I see nothing that appears to be a right hilar mass that had been suggested on the initial CAT scan done without contrast and while she had pleural effusion. The patient states that she had fluid drained today and it was 225 mL. OBJECTIVE: GENERAL: The patient appears comfortable. VITAL SIGNS: She is afebrile. Heart rate 92 per minute and regular. Blood pressure 92/54. Oxygen saturation today 98% on room air. EARS, NOSE, AND THROAT: Unremarkable. LUNGS: The patient does have rales bilaterally in the lungs. She has diminished breath sounds at the left lung base. Respiratory rate 20 breaths per minute. EXTREMITIES: Showed no edema. IMPRESSIONS: 1. Bilateral pleural effusions -- exudative on right. 2. Small pretracheal lymph node. 3. Chronic obstructive pulmonary disease. 4. Anemia. 5. History of Hodgkin's disease. COMMENTS AND RECOMMENDATIONS: The patient seems stable from a pulmonary perspective. I would expect that she might be discharged soon. She states that she may be going to [facility] for a little bit of rehabilitation. She can likely go back to her outpatient medications that she was using for breathing. It appears that she was on a Combivent Respimat and also Advair. She also has albuterol by nebulizer as needed.
[2016-04-23] MEDS ORDERED: NURSING VERBAL MED ORDER ONE (15:00)
--- NOTE | 2016-04-23 16:45 | Progress Note ---
Subjective Date of Service: Apr 23, 2016. Subjective Pt evaluation today including: conversation w/ patient Pt again notes improvement. No SOB at rest, but does fatigue easily--overall much improved from admission. No issues with PO intake. Pt denies fever, chest pain, abd pain, n/v/c/d, LE pain or swelling. ROS as noted above, otherwise neg. Pt has concerns that she will not be able to manage at home and would like [facility] on d/c. Problem List Medical Problems: (1) CHF (congestive heart failure) Status: Acute (2) Dyspnea Status: Acute (3) Pleural effusion Status: Acute Objective Vital Signs Date Time Temp Pulse Resp B/P Pulse Ox O2 Delivery O2 Flow Rate FiO2 04/23/16 16:20 36.7 91 16 97 2.0 04/23/16 16:02 91 16 97 Room Air 04/23/16 16:00 Room Air 04/23/16 16:00 36.7 94 16 121/70 97 Room Air 04/23/16 16:00 91 121/70 04/23/16 12:44 98 Room Air 04/23/16 12:00 95 Room Air 04/23/16 12:00 92 92/54 04/23/16 11:26 36.9 91 18 92/54 98 Room Air 04/23/16 11:25 91 16 97 Room Air 04/23/16 08:00 95 Room Air 04/23/16 07:47 93 112/62 04/23/16 07:31 36.5 93 18 112/62 95 Room Air 04/23/16 06:51 88 16 97 Room Air 04/23/16 04:05 96 Room Air 04/23/16 04:00 97 112/59 04/23/16 03:32 36.5 97 20 112/59 96 Room Air 04/23/16 00:00 Room Air 04/23/16 00:00 104/58 04/22/16 23:39 36.8 99 18 104/58 93 Room Air 04/22/16 20:30 92 109/63 04/22/16 20:01 90 16 96 Room Air 04/22/16 20:00 94 Room Air 04/22/16 19:36 36.6 92 20 109/63 94 Room Air Physical Exam Comments: General Appearance: no apparent distress, + thin Respiratory/Chest: no respiratory distress, + decreased breath sounds, + crackles much improved Cardiovascular: regular rate, rhythm, no edema Abdomen: non tender, soft Extremities: non-tender, no pedal edema Neurologic/Psychiatric: alert, normal mood/affect Skin: normal color, warm/dry Laboratory Results Last 24 Hours Test 04/22/16 20:04 04/23/16 07:01 04/23/16 11:21 04/23/16 16:17 Bedside Glucose 217 mg/dl 114 mg/dl 145 mg/dl 119 mg/dl Assessment and Plan 65 y/o smoker female presented with worsening of her chronic cough, with production of yellowish/greenish sputum. also has N/V and iron deficiency anemia. Worsening chronic cough/moderate to severe right pleural effusion with Hx of smoking CT chest on admission showed possible Mass/enlarged LN with possible post obst pneumonia, switched Azithro to levofloxacin Repeat CT with contrast 04/22 is not suggestive of mass or lymphadenopathy or PNA xarelto/ASA are on hold since 04/18 for potential ongoing procedures sputum Cx Thoracentesis 04/19, path neg for malignancy PleurX cath placed 04/21 with good drainage Pt will d/c with cath, HH being set up for tomorrow due to supplies F/U CT surg in 2 weeks, they will call her for appt COPD without significant exacerbation no wheezing, also has good air entry B/L (diminished over her pleural effusion) congestion on CXR, elevated BNP ECHO noted s/p albumin 25 g with Lasix 40 mg IV 1 04/19 lasix to PO Cardiology is restarting b-delphine at low dose and will increase as tolerated Hx of diabetes oral meds on hold started SSI GERD/Anemia with symptoms of upper GI bleed with a decrease in hemoglobin of about 3-1/2 g over the past year- low iron, elevated TIBC, normal B12 and folate continue Protonix bolus and then drip, GI c/s noted, already has EGD set up as outpt Also added venofer 100mg IV daily for 4 doses Pulmonary emboli history--for now hold Xarelto as noted above Will resume anticoag with coumadin once further procedures are determined Allergic rhinitis--continue Flonase 2 sprays each nostril daily. Hypercholesterolemia--for now hold atorvastatin 80 mg by mouth at bedtime. Hypothyroidism--as at home DVT prophylaxis heparin SQ TID Pt requesting [facility], however this was denied this afternoon. Will d/c with HH, however supplies for pleurx not available until tomorrow.
--- NOTE | 2016-04-23 17:28 | CARDIOLOGY PROGRESS NOTE ---
DATE: 04/23/2016 TIME: 16:56 p.m. SUBJECTIVE: She feels as though her breathing is improving on a daily basis. She states that today is a good day. She denies chest pain, syncope, near syncope, or palpitations. She is tolerating ambulation in the hallway better than prior during this hospitalization. OBJECTIVE: VITAL SIGNS: Temperature 36.7 degrees, heart rate 91 beats per minute, respiration rate 16, blood pressure 121/70 mmHg. She has had intermittent mild hypotension around noon today but otherwise her blood pressure has improved overall. Oxygen saturation 97% on room air. Net fluid balance is rather even. Weight appears to be inconsistent with her other prior weights. GENERAL: In no acute distress. She is alert. NECK: No JVD. CARDIAC EXAM: No ventricular heave. Regular, normal S1, S2. 1/6 early peaking systolic ejection murmur best heard at the right upper sternal border. No rubs or gallops. LUNGS: Relatively clear without significant rales, rhonchi or wheezing. ABDOMEN: Soft, nontender, nondistended, normoactive bowel sounds. EXTREMITIES: No cyanosis or edema. PSYCHIATRIC: Affect appears appropriate. MEDICATIONS: Include aspirin 81 mg daily, Lipitor 80 mg at bedtime, Lasix 40 mg p.o. daily, heparin 5,000 units subQ q. 8 hours, metoprolol succinate 50 mg daily, Protonix 40 mg IV b.i.d., potassium chloride 20 mEq p.o. b.i.d. Telemetry personally reviewed. No arrhythmia. LABORATORY DATA: Glucose 119. Labs on 04/22/2016 demonstrated sodium 136, potassium 4.1, BUN 12, creatinine 0.5. CT scan of the chest on 04/22/2016 demonstrated a pleural drain at the right lung base. Moderate left pleural effusion, no airspace consolidation typical for pneumonia. Paramediastinal fibrosis suggestive of previous radiation therapy. No significant mediastinal or hilar lymphadenopathy. ASSESSMENT AND PLAN: 1. Chronic diastolic congestive heart failure: She appears euvolemic. Continue outpatient Lasix 40 mg daily. She has been encouraged to use this as an outpatient as she has been noncompliant. 2. Pleural effusion: Exudative process followed by pulmonology and thoracic surgery. She has PleurX catheter in place. Her dyspnea with exertion is improving. 3. Tachycardia: This occurred after abrupt discontinuation of her beta-delphine therapy during this hospitalization. It has improved. Will increase metoprolol to 100 mg daily. She had been taking 150 mg of metoprolol succinate as an outpatient. If her blood pressure tolerates, would recommend discharging on her home dose. 4. Cardiomyopathy: Titrating beta-delphine as above, hoping to reach her typical home dose. Left ventricular systolic function has normalized after ablation of her atrial tachycardia. 5. Paroxysmal atrial fibrillation: Titrating beta-delphine as above. Recommend Coumadin upon discharge with a goal INR of 2-3. Start Coumadin when safe from a surgical standpoint. 6. Bioprosthetic aortic and mitral valves: Her mitral valve velocities and gradients are higher than expected, but stable from 2015. She also had hyperdynamic left ventricular systolic function which could contribute to some elevated velocities. Follow over time. 7. Anemia: Per primary service. Iron deficiency anemia was suggested by labs. 8. Coronary artery disease, status post coronary artery bypass graft and right coronary artery percutaneous coronary intervention: Tolerating aspirin 81 mg daily. Continue high intensity statin therapy. Continue beta-delphine. No angina. 9. Disposition: Overall appears to be improving on a daily basis.
[2016-04-23] MEDS: LEVOFLOXACIN / D5W 500 MG in PREMIXED IN D5W 100 ML IV SCH (20:29)
[2016-04-23] MEDS: ASPIRIN 81 MG ECTAB PO SCH (20:30)
[2016-04-23] MEDS: ATORVASTATIN 40 MG TAB PO SCH (20:30)
[2016-04-23] MEDS: DiphenhydrAMINE HCL 50 MG/ML VIAL IV PRN (21:22)
[2016-04-23] MEDS: DIAZEPAM 5MG TAB PO PRN (21:23)
[2016-04-23] MEDS: BACLOFEN 10 MG TAB PO PRN (21:50)
[2016-04-24] VITALS (8 sets, daily range): BP systolic 95–111; BP diastolic 58–62; PULSE 72–94; TEMP 36.7; O2SAT 93–98
[2016-04-24] MEDS: METOPROLOL TARTRATE 1 MG/ML VIAL IV. SCH ×7 (03:48→23:35)
[2016-04-24] MEDS: LEVOTHYROXINE 112 MCG TAB PO SCH (06:17)
[2016-04-24] MEDS: HEPARIN SOD 5000 UNIT/0.5 ML CARP SQ SCH ×3 (06:21→21:03)
[2016-04-24] MEDS: INSULIN ASPART 100 UNITS/ML 3 ML PEN SC SCH ×4 (06:30→20:49)
[2016-04-24] MEDS: ALBUT/IPRATROP 3MG/0.5MG NEB 3 ML VIAL INH SCH ×4 (07:24→19:34)
[2016-04-24] MEDS: DOCUSATE SODIUM 100 MG CAP PO SCH ×2 (08:01→20:53)
[2016-04-24] MEDS: FLUTICASONE/SALMETEROL 250/50 (ADVAIR) 14 PUFF/1 INHALER INH SCH ×2 (08:01→20:53)
[2016-04-24] MEDS: CHOLECALCIFEROL 1000 INTER.UNIT TAB PO SCH (08:02)
[2016-04-24] MEDS: FUROSEMIDE 40 MG TAB PO SCH (08:02)
[2016-04-24] MEDS: POTASSIUM CHLORIDE 20 MEQ TABCR PO SCH ×2 (08:02→20:52)
[2016-04-24] MEDS: METOPROLOL SUCC 50MG EXT REL TAB PO SCH (08:03)
[2016-04-24] MEDS: FLUTICASONE PROPIONATE NA SPR 16 GM BTL NAE SCH (08:04)
--- NOTE | 2016-04-24 09:03 | Surgery Progress Note ---
Subjective Date of Service: Apr 24, 2016. Pt. denies CP or SOB this am Objective Vitals Date Time Temp Pulse Resp B/P Pulse Ox O2 Delivery O2 Flow Rate FiO2 04/24/16 08:00 106/61 04/24/16 07:55 36.7 93 20 106/61 97 Room Air 04/24/16 07:28 72 16 98 Room Air 04/24/16 03:48 90 92/50 04/24/16 00:00 Room Air 04/24/16 00:00 99 112/67 04/23/16 23:57 36.8 99 20 112/64 98 Room Air 04/23/16 20:26 97 16 93/50 96 Room Air 04/23/16 20:02 89 16 96 Room Air 04/23/16 20:00 97 93/50 04/23/16 17:45 Room Air 04/23/16 17:30 36.8 97 20 108/69 99 Room Air 04/23/16 16:20 36.7 91 16 97 2.0 04/23/16 16:02 91 16 97 Room Air 04/23/16 16:00 Room Air 04/23/16 16:00 36.7 94 16 121/70 97 Room Air 04/23/16 16:00 91 121/70 04/23/16 12:44 98 Room Air 04/23/16 12:00 95 Room Air 04/23/16 12:00 92 92/54 04/23/16 11:26 36.9 91 18 92/54 98 Room Air 04/23/16 11:25 91 16 97 Room Air Physical Exam General: + well developed, + well nourished CV: + RRR Pulmonary: + lungs clear Extremities: No calf tenderness Neurologic: + alert & oriented x 3 Drains / Tubes pleurex (right sided drained for 175 cc this am ) Assessment & Plan 65 year old female with pleural effusion -pleurex placed on -pt. to have daily drainage -will see her in office in 2 weeks after d/c with appropriate imaging
[2016-04-24] MEDS: PANTOprazole INJ 40 MG in SYRINGE 0 ML IV SCH (09:15)
[2016-04-24] MEDS ORDERED: POLYETHYLENE (MIRALAX) 17 GM PACK PO PRN (10:30)
--- NOTE | 2016-04-24 10:58 | Hospitalist Progress Note ---
Hospitalist Progress Note Date of Service Apr 24, 2016. (Lynn Warren PA-C) 04/24/16 feels tired (Bart Candelario MD) Subjective Pt evaluation today including: conversation w/ patient, physical exam, chart review, lab review, review of studies, review of inpatient medication list Pain: None PO Intake: Good Voiding: no voiding problems The patient was seen and examined this morning. Pt reports breathing is a little tighter today than it has been in the past 2 days. She was short of breath with rest this morning shortly after waking up and after the pleurex catheter was drained. Pt denies chest pain, palpitations, or increased shortness of breath with exertion. Pt has been walking to and from bathroom and has done 1 lap in the hallway. She notes it has been 6 days since her last BM. She denies abdominal discomfort or pain, no n/v. Pt reports drinking hot butter/prune juice and taking a stool softener twice daily now but that this hasn't worked. She does NOT want a laxative or a suppository, but is agreeable to a trial of mirilax. Constitutional: No chills, No fever, No sweats Eyes: No diplopia ENT: No nasal symptoms, No sore throat Respiratory: No cough, No shortness of breath Cardiovascular: No chest pain, No palpitations Abdomen: + constipation, No diarrhea, No nausea, No pain, No vomiting Musculoskeletal: No calf pain, No muscle pain, No swelling Female : No dysuria Neurologic: No numbness/tingling, No weakness Skin: No itch, No rash (Lynn Warren PA-C) Pt evaluation today including: conversation w/ patient, physical exam, chart review, review of studies, review of inpatient medication list Constitutional: No fever ENT: No hearing loss Respiratory: No cough Abdomen: No pain Neurologic: No memory loss Endo: No fatigue Skin: No rash (Bart Candelario MD) Objective Vital Signs Date Time Temp Pulse Resp B/P Pulse Ox O2 Delivery O2 Flow Rate FiO2 04/24/16 08:00 Room Air 04/24/16 08:00 106/61 04/24/16 07:55 36.7 93 20 106/61 97 Room Air 04/24/16 07:28 72 16 98 Room Air 04/24/16 03:48 90 92/50 04/24/16 00:00 Room Air 04/24/16 00:00 99 112/67 04/23/16 23:57 36.8 99 20 112/64 98 Room Air 04/23/16 20:26 97 16 93/50 96 Room Air 04/23/16 20:02 89 16 96 Room Air 04/23/16 20:00 97 93/50 04/23/16 17:45 Room Air 04/23/16 17:30 36.8 97 20 108/69 99 Room Air 04/23/16 16:20 36.7 91 16 97 2.0 04/23/16 16:02 91 16 97 Room Air 04/23/16 16:00 Room Air 04/23/16 16:00 36.7 94 16 121/70 97 Room Air 04/23/16 16:00 91 121/70 04/23/16 12:44 98 Room Air 04/23/16 12:00 95 Room Air 04/23/16 12:00 92 92/54 04/23/16 11:26 36.9 91 18 92/54 98 Room Air 04/23/16 11:25 91 16 97 Room Air (Lynn Warren PA-C) Physical Exam General Appearance: WD/WN, no apparent distress, + thin Eyes: PERRL, EOMI ENT: hearing grossly normal, pharynx normal, + pertinent finding (+ thrush on palate) Neck: supple, no JVD Respiratory/Chest: no respiratory distress, no accessory muscle use, + pertinent finding (pleurex catheter in place R chest wall, surrounding area appears nonerythematous, dressing c/d/i) Cardiovascular: regular rate, rhythm, no JVD Abdomen: normal bowel sounds, non tender, soft Extremities: non-tender, no pedal edema, no calf tenderness Neurologic/Psychiatric: alert, oriented x 3 Skin: normal color, warm/dry ( ) (Lynn Warren PA-C) General Appearance: WD/WN, no apparent distress Eyes: normal inspection, EOMI ENT: hearing grossly normal, pharynx normal Neck: supple, no JVD Respiratory/Chest: no respiratory distress, + decreased breath sounds Cardiovascular: no edema, no JVD Abdomen: normal bowel sounds, no organomegaly Extremities: non-tender Neurologic/Psychiatric: alert, oriented x 3 Skin: normal color (Bart Candelario MD) Laboratory Results Last 24 Hours Test 04/23/16 11:21 04/23/16 16:17 04/24/16 08:03 Bedside Glucose 145 mg/dl 119 mg/dl 132 mg/dl (Lynn Warren, JIM) Assessment and Plan 65 y/o smoker female presented with worsening of her chronic cough, with production of yellowish/greenish sputum. PMHx of CAD, CABG x 4 with previous VA , bioprosthetic aortic and mitral valves, COPD, s/p splenectomy, DM type unspecified an uncontrolled, and iron deficiency anemia. Worsening chronic cough / moderate to severe right pleural effusion with Hx of smoking - CT chest on admission showed possible Mass/enlarged LN with possible post obstructive pneumoni, Repeat CT with contrast 04/22 is not suggestive of mass or lymphadenopathy or PNA - switched Azithro to levofloxacin - Thoracentesis was completed on 04/19 - negative for malignancy, - Pleurex cath placed on 04/21- plan for pt to go home wih catheter with HH services since was denied by [facility] yesterday. Appeciate pulm recs an management of pleurex catheter- will need f/u scheduled within 2 weeks, they will call her for appt. - Hold xarelto and start coumadin today. - Cont ASA 81 mg daily COPD without significant exacerbation - no wheezing, also has good air entry B/L (diminished over her pleural effusion ) - pleurex catheter in place CAD sp CABG x 4, s/p acute VA, Chronic diastolic CHF, Paroxysmal Afib, bioprosthetic mitral and aortic valves - Will start coumadin tonight, 5 mg, per cardiology recs for paroxysmal afib - Follow INR on Wednesday. - ECHO noted - s/p albumin 25 g with Lasix 40 mg IV 1 on 04/19- no pedal edema or signs of volume overload at this time. - Cont lasix 40 mg PO QAM - Cont metoprolol succinate 100 mg daily per cardiology recs - plan to increase as tolerated. DM, unknown type, uncontrolled - A1C = 6.4 on 04/20 - oral meds on hold - Cont ISS with accuchecks achs - glucose has been running ~130-140 in the past 24 hrs. Constipation - Last BM per pt is last Wednesday, 6 days ago. - Pt reports adequate fluid, has been drinking hot prune/butter juice, and has been walking a little more. - Only bowel regimen on board at this time is colace 100 mg BID which she has been taking - Add mirilax as pt is adamant that she doesn't want a laxative or suppository. - Pt agreeable to taking this if no BM by lunch time today. Oral thrush - Will order nystatin swish and spit QID GERD/Anemia - symptoms of upper GI bleed with a decrease in hemoglobin of about 3-1/2 g over the past year- has remained stable since admit ginette - low iron, elevated TIBC, normal B12 and folate - continue Protonix 40 mg BID-will switch to oral. - GI c/s noted, already has EGD set up as outpt - Also added venofer 100mg IV daily for 4 doses Pulmonary emboli history - Hold xarelto while restarting coumadin Allergic rhinitis -continue Flonase 2 sprays each nostril daily. Hypercholesterolemia- -Cont atorvastatin 80 mg QHS Hypothyroidism- - Cont levothyroxine DVT prophylaxis heparin SQ TID Disposition: From home, denied by [facility] yesterday, will plan to d/c with HH. Likely within 1-2 days. (Lynn Warren, JIM) 65 y/o smoker female presented with worsening of her chronic cough, with production of yellowish/greenish sputum. also has N/V and iron deficiency anemia. Worsening chronic cough/moderate to severe right pleural effusion with Hx of smoking CT chest on admission showed possible Mass/enlarged LN with possible post obst pneumonia, continue levofloxacin Repeat CT with contrast 04/22 is not suggestive of mass or lymphadenopathy or PNA xarelto/ASA are on hold since 04/18 for potential ongoing procedures sputum Cx, mycobacterial cx pending Thoracentesis 04/19, path neg for malignancy PleurX cath placed 04/21 with good drainage Pt will d/c with cath, HH being set up for tomorrow due to supplies F/U CT surg in 2 weeks, they will call her for appt COPD without significant exacerbation no wheezing, also has good air entry B/L (diminished over her pleural effusion) congestion on CXR, elevated BNP ECHO noted s/p albumin 25 g with Lasix 40 mg IV 04/19 continue lasix PO Cardiology recommending b-delphine at low dose and will increase as tolerated Hx of diabetes oral meds on hold SSI GERD/Anemia with symptoms of upper GI bleed with a decrease in hemoglobin of about 3-1/2 g over the past year- low iron, elevated TIBC, normal B12 and folate continue Protonix bolus and then drip, GI c/s noted, already has EGD set up as outpt venofer 100mg IV daily for 4 doses Pulmonary emboli history--for now hold Xarelto as noted above restart coumadin 5 mg daily, check INR daily Allergic rhinitis--continue Flonase 2 sprays each nostril daily. Hypercholesterolemia--for now hold atorvastatin 80 mg by mouth at bedtime. Hypothyroidism--as at home DVT prophylaxis coumadin Will d/c with HH, hopefully tomorrow. f/u Dr Steele 1-2 weeks (Bart Candelario MD)
[2016-04-24 11:42] LABS: HEMATOCRIT 29.4 % (37-47); MEAN CELL VOLUME 80.5 fL (80-100); MEAN CORPUSCULAR HEMOGLOBIN 25.5 pg (25-34); MEAN CORPUSCULAR HGB CONC 31.6 g/dl (32-36); MEAN PLATELET VOLUME 9.5 fL (7.4-10.4); PLATELET COUNT 379 K/uL (130-400); RED BLOOD COUNT 3.65 M/uL (4.2-5.4); WHITE BLOOD COUNT 13.39 K/uL (4.8-10.8)
[2016-04-24] MEDS: NYSTATIN SUSP 500,000 U/5 ML UDC PO SCH ×3 (12:10→20:52)
[2016-04-24] MEDS ORDERED: WARFARIN SOD 5 MG TAB PO SCH (16:00)
[2016-04-24] MEDS: PANTOprazole SOD 40 MG TAB PO SCH (20:51)
[2016-04-24] MEDS: LEVOFLOXACIN / D5W 500 MG in PREMIXED IN D5W 100 ML IV SCH (20:51)
[2016-04-24] MEDS: ATORVASTATIN 40 MG TAB PO SCH (20:53)
[2016-04-24] MEDS: ASPIRIN 81 MG ECTAB PO SCH (20:55)
[2016-04-24] MEDS: DiphenhydrAMINE HCL 50 MG/ML VIAL IV PRN (21:46)
[2016-04-24] MEDS ORDERED: RIVAROXABAN 10 MG TAB PO SCH (22:00)
[2016-04-24] MEDS ORDERED: ASPIRIN 81 MG ECTAB PO SCH (22:00)
[2016-04-25] MEDS: METOPROLOL TARTRATE 1 MG/ML VIAL IV. SCH (03:44)
[2016-04-25] MEDS: LEVOTHYROXINE 112 MCG TAB PO SCH (05:39)
[2016-04-25] MEDS: HEPARIN SOD 5000 UNIT/0.5 ML CARP SQ SCH (05:41)
[2016-04-25] MEDS: TRAMADOL HCL 50 MG TAB PO PRN (05:56)
[2016-04-25] MEDS: ALBUT/IPRATROP 3MG/0.5MG NEB 3 ML VIAL INH SCH ×2 (07:12→11:17)
--- NOTE | 2016-04-25 07:12 | Surgery Progress Note ---
Subjective Date of Service: Apr 25, 2016. Pt. notes pain with deep breaths after pleurex drained. No Other issues noted. Objective Vitals Date Time Temp Pulse Resp B/P Pulse Ox O2 Delivery O2 Flow Rate FiO2 04/25/16 00:24 04/25/16 00:00 Room Air 04/24/16 21:09 93 93/63 04/24/16 19:34 90 16 97 Room Air 04/24/16 16:23 93 96 04/24/16 16:00 Room Air 04/24/16 16:00 93 107/58 04/24/16 15:19 36.7 91 20 95/60 97 Room Air 04/24/16 15:14 90 16 97 Room Air 04/24/16 12:09 94 111/62 04/24/16 12:00 111/62 04/24/16 11:29 75 16 93 Room Air 04/24/16 08:00 Room Air 04/24/16 08:00 106/61 04/24/16 07:55 36.7 93 20 106/61 97 Room Air 04/24/16 07:28 72 16 98 Room Air Physical Exam General: + well developed, + well nourished CV: + RRR Pulmonary: + pertinent finding (improved areation noted in right lung anne), No accessory muscle use, No respiratory distress Extremities: No calf tenderness Neurologic: + alert & oriented x 3 Drains / Tubes pleurex (right sided--drained fro 200 cc this am ) Assessment & Plan 65 year old female with pleural effusion -pleurex placed on -continue daily drainage -discussed with pt. that pain after drainage is likely due to lung re-expansion -will see her in office in 2 weeks after d/c with appropriate imaging
[2016-04-25 07:13] VITALS: PULSE 98; O2SAT 97
[2016-04-25 08:03] LABS: HEMATOCRIT 28.5 % (37-47); MEAN CELL VOLUME 78.5 fL (80-100); MEAN CORPUSCULAR HEMOGLOBIN 25.1 pg (25-34); MEAN CORPUSCULAR HGB CONC 31.9 g/dl (32-36); MEAN PLATELET VOLUME 9.4 fL (7.4-10.4); PLATELET COUNT 398 K/uL (130-400); RED BLOOD COUNT 3.63 M/uL (4.2-5.4); WHITE BLOOD COUNT 12.77 K/uL (4.8-10.8)
[2016-04-25 08:30] VITALS: BP 103/53; PULSE 94; TEMP 36.6; O2SAT 94
[2016-04-25] MEDS: FLUTICASONE/SALMETEROL 250/50 (ADVAIR) 14 PUFF/1 INHALER INH SCH (09:06)
[2016-04-25] MEDS: FLUTICASONE PROPIONATE NA SPR 16 GM BTL NAE SCH (09:06)
[2016-04-25] MEDS: CHOLECALCIFEROL 1000 INTER.UNIT TAB PO SCH (09:06)
[2016-04-25] MEDS: FUROSEMIDE 40 MG TAB PO SCH (09:07)
[2016-04-25] MEDS: METOPROLOL SUCC 50MG EXT REL TAB PO SCH (09:08)
[2016-04-25] MEDS: POTASSIUM CHLORIDE 20 MEQ TABCR PO SCH (09:09)
[2016-04-25] MEDS: PANTOprazole SOD 40 MG TAB PO SCH (09:11)
[2016-04-25] MEDS: NYSTATIN SUSP 500,000 U/5 ML UDC PO SCH ×2 (09:11→12:38)
[2016-04-25] MEDS: BACLOFEN 10 MG TAB PO PRN (09:11)
[2016-04-25] MEDS: DOCUSATE SODIUM 100 MG CAP PO SCH (09:12)
[2016-04-25] MEDS: INSULIN ASPART 100 UNITS/ML 3 ML PEN SC SCH ×2 (09:47→13:02)
[2016-04-25 11:18] VITALS: PULSE 94; O2SAT 97
[2016-04-25] MEDS ORDERED: MRLP17X PO (12:43)
[2016-04-25] MEDS ORDERED: CMD5 PO (12:43)
[2016-04-25] MEDS ORDERED: METO1TAB69 PO (12:43)
--- NOTE | 2016-04-25 13:01 | Discharge Instructions ---
Discharge Instructions Admission Reason for Admission: Pleural Effusion, Upper Gi Bleed Discharge Discharge Diagnosis / Problem: Pleural Effusion Discharge Goals Goal(s): Decrease discomfort, Improve function Activity Recommendations Activity Limitations: as noted below Lifting Limitations: gradually increase as tolerated Exercise/Sports Limitations: none Shower/Bathe: no limitations . Instructions / Follow-Up Instructions / Follow-Up You were admitted to [facility] with worsening cough and diagnosed with pleural effusion of the Right lung. - A CT of the chest was completed on 04/22 and was not suggestive of mass or lymphadenopathy or PNA - you were treated with antibiotics while admitted to cover for infectious process. You have been given a prescription for levaquin to continue for 3 more days. - Thoracentesis was completed on 04/19 - negative for malignancy - Pulmonology saw you while here and placed a Pleurex catheter in the right lung on 04/21 to drain the pleural effusion - Follow up with Pulmonology within 2 weeks as scheduled. - You were started on coumadin while admitted for anticoagulation instead of xarelto. Do NOT resume xarelto upon discharge. - Continue taking coumadin as directed. - You need lab work on Wednesday04/27/16 to check your INR. These results should be followed by your PCP or the coumadin clinic. - Metoprolol dosage has been changed. You should start taking 100 mg daily instead of the higher dosage. Please follow up with cardiology as an outpatient. Current Hospital Diet Patient's current hospital diet: Low Sodium Diet (2gm Na), AHA Diet (Heart Healthy), Diabetes Type 1 Diet Discharge Diet Recommended Diet: AHA Diet (Heart Healthy) Procedures Procedures Performed: - Pleurex catheter placed on 04/21 - Thoracentesis on 04/19 - CXR (qty =5) - CT (qty = 2) Pending Studies Studies pending at discharge: no Laboratory Results Last 24 Hours Test 04/24/16 16:04 04/24/16 20:10 04/25/16 07:55 04/25/16 08:12 Bedside Glucose 110 mg/dl 102 mg/dl 109 mg/dl White Blood Count 12.77 K/uL Red Blood Count 3.63 M/uL Hemoglobin 9.1 g/dL Hematocrit 28.5 % Mean Corpuscular Volume 78.5 fL Mean Corpuscular Hemoglobin 25.1 pg Mean Corpuscular Hemoglobin Concent 31.9 g/dl RDW Standard Deviation 53.0 fL RDW Coefficient of Variation 19.2 % Platelet Count 398 K/uL Mean Platelet Volume 9.4 fL Nucleated RBC Absolute Count (auto) 0.02 K/uL Nucleated Red Blood Cells % 0.1 % Test 04/25/16 11:23 Bedside Glucose 173 mg/dl Hemoglobin A1c Test 04/20/16 07:28 Range/Units Estimated Average Glucose 137 mg/dl Hemoglobin A1c 6.4 H 4.5-5.6 % Lipid Panel Test 04/20/16 07:28 Range/Units Triglycerides Level 60 0-150 mg/dl Cholesterol Level 76 0-200 mg/dl HDL Cholesterol 31 mg/dl Cholesterol/HDL Ratio 2.5 LDL Cholesterol, Calculated 33 mg/dl Medical Emergencies . Who to Call and When: Medical Emergencies: If at any time you feel your situation is an emergency, please call 911 immediately. . Non-Emergent Contact Non-Emergency issues call your: Primary Care Provider, Fire Control System Installer Call Non-Emergent contact if: you have a fever, temperature is above 100.5, your pain is not controlled, your pain is worsening, you have any medication questions Pleurex catheter becomes painful, drainage changes color, smell, or is concerning to you. . Past History Medical & Surgical History: (1) chest pain, right pleural effusion (2) CHF (congestive heart failure) (3) Diab Ene Wo Compl, Type Ii Or Unspec Type, Not Uncntrld . "Provider Documentation" section prepared by Purnima Warren. VTE Core Measure Inpt VTE Proph given/why not?: Other Anticoagulation, SCD's
[2016-04-25] MEDS ORDERED: LEVO500T19 PO (13:02)
[2016-04-25 13:13] VITALS: BP 103/53; PULSE 94; TEMP 36.6; O2SAT 97
[2016-04-25] MEDS ORDERED: NYSS5 PO (13:25)
--- NOTE | 2016-04-25 13:29 | Discharge Summary ---
Discharge Summary Admission Date: Apr 18, 2016 at 19:44 Discharge Date: Apr 25, 2016 Discharge Disposition: Home with services Principal Diagnosis: R lung pleural effusion Problems/Secondary Diagnoses: CAD, HTN, s/p CABG, DM type Ii, Immunizations: Have You Had Influenza Vaccine: Yes Influenza Vaccine Date: Jan 13, 2013 History of Tetanus Vaccine?: Yes Tetanus Immunization Date: Nov 13, 2009 History of Pneumococcal: Yes Pneumococcal Date: Jan 13, 2007 History of Hepatitis B Vaccine: Unknown Procedures: CXR 04/18/16 IMPRESSION: 1. Moderate right and small left pleural effusions. 2. Pulmonary vascular congestion with suspected mild pulmonary edema. CT OF THE CHEST WITHOUT IV CONTRAST 04/18/16 IMPRESSION: 1. Postsurgical changes on the right 2. Moderate bilateral pleural effusions right greater than left 3. Mildly enlarged mediastinal lymph nodes 4. Suspected right hilar mass/adenopathy with narrowing of the right lower lobe bronchus. Pulmonary consultation is recommended for possible bronchoscopic evaluation 5. Peripheral nodular opacities within the right lower lobe, likely postinflammatory 6. Slight progression in the bilateral upper lobe airspace opacities 7. Paramediastinal fibrotic changes CXR 1 view 04/19/16 IMPRESSION: No evidence of pneumothorax status post thoracentesis. CXR 1 view 04/20/16 IMPRESSION: No change in the small to moderate bilateral pleural effusions. No pneumothorax. CXR 1 view 04/21/16 IMPRESSION: 1. Interval insertion of a right-sided Pleurx catheter. Interval development of an 18 mm right apical pneumothorax. CXR 1 view 04/21/16 IMPRESSION: 1. Slight decrease in size in the small right-sided hydropneumothorax. Right basilar chest tube remains unchanged in position. 2. Small left pleural effusion persists. 3. Mild pulmonary vascular congestion without overt edema. CT Chest with IV contrast 04/22/16 IMPRESSION: 1. A pleural drain has been placed at the right lung base. There is a small left-sided hydropneumothorax as above. 2. There is a moderate left pleural effusion with associated atelectasis. 3. There is no airspace consolidation typical for pneumonia. 4. Paramediastinal fibrosis suggests previous radiation therapy. 5. No significant mediastinal or hilar lymphadenopathy is seen. 6. Additional chronic findings as above. Consultations: Pulmonology Cardiology (Lynn Warren, JIM) Medication Reconciliation New Medications: Levofloxacin (Levaquin) 500 Mg Tab 1 TAB PO DAILY for 3 Days, #3 TAB Nystatin (Nystatin) 5 Ml Susp 5 ML PO QID for 7 Days, #1 BTL Continue until white lesions not seen on roof of mouth. Polyethylene (Miralax) 17 Gm Pow 17 GM PO Q2D PRN for Constipation for 30 Days, #15 PKT Warfarin Sod (Coumadin) 5 Mg Tab 5 MG PO DAILY@16 for 30 Days, #30 TAB Take 1 tablet daily unless otherwise directed by the coumadin clinic Changed Medications: Metoprolol Succ (Toprol Xl) (Toprol-Xl ) 100 Mg Tabcr 100 MG PO QAM for 30 Days, #30 TAB (Changed from: 150 MG) Continued Medications: Albuterol Soln (Ventolin Soln) 0.083 % Neb 1 VIAL NEB QID PRN for Cough or Wheezing MAY BE SCHEDULED FOUR TIMES A DAY. Aspirin Enteric Coated (Ecotrin Or Generic) 81 Mg Tab 81 MG PO HS, TAB Atorvastatin (Lipitor) 80 Mg Tab 80 MG PO HS, TAB Baclofen (Lioresal) 10 Mg Tab 10 MG PO TID PRN for Muscle Spasms, TAB Icygptxxhk-Qzngeos-Lradhsen W/ (Fiorinal/Codeine #3) 1 Cap Cap 1 CAP PO Q6 PRN for Headache Cholecalciferol (Vitamin D3) 1,000 Unit Tab 1000 UNITS PO DAILY for 90 Days, TAB 3 Refills Diazepam (Valium) 5 Mg Tab 5 MG PO TID PRN for Anxiety Docusate Sodium (Colace) 100 Mg Cap 100 MG PO BID Fluticasone Prop/Salmeterol (Advair Diskus 250/50 60 Dose) 1 Ea Aerp 1 PUFF INH BID Fluticasone Propionate (Fluticasone Propionate) 120 Sprays/6000 Mcg Inha 2 SPRAYS MORALES DAILY Folic Acid (Folvite) 1 Mg Tab 2 MG PO DAILY, TAB Furosemide (Lasix) 40 Mg Tab 40 MG PO QAM, TAB Ipratropium-Albuterol (Combivent Respimat) 1 Aer Aer 1 PUFF INH QID PRN for Shortness of Breath Levothyroxine Sodium (Levothyroxine Sodium) 112 Mcg Tab 112 MCG PO DAILY for 90 Days, #90 TAB 3 Refills Losartan Potassium (Cozaar) 25 Mg Tab 25 MG PO QAM, TAB Nitroglycerin (Nitrostat) 0.4 Mg Tab 0.4 MG UT UD PRN for Chest Pain, [address] ONE TABLET UNDER THE TONGUE EVERY 5 MINUTES FOR UP TO 3 DOSES IF NEEDED FOR CHEST PAIN. Omeprazole (Prilosec) 40 Mg Capcr 40 MG PO DAILY, CAP Ondansetron Hcl (Zofran) 4 Mg Tab 4 MG PO Q6H PRN for Nausea, TAB Potassium Ext Rel (Klor-Con) 20 Meq Tabcr 20 MEQ PO BID Tramadol (Ultram) 50 Mg Tab 50 MG PO Q6 PRN for Pain, TAB Discontinued Medications: Rivaroxaban (Xarelto) 20 Mg Tab 20 MG PO HS, TAB Referrals At Discharge Follow up Referrals: Hospice Community Liaison Referral - Within 1-2 Weeks with Kedar Correa MD Physician Referral - Within 1 Week with Saulo Arthur M.D. Discharge Exam The patient was seen and examined this morning. Pt reports improvement of breathing. She had the pleurex catheter drained this morning without difficulty. Pt is agreeable to discharge home today. She denies shortness of breath, chest pain, abd pain, n/v/d/c. All her questions about home health delivery of pleurex materials were discussed and CM has provided her with details. She has no other questions at this time. Review of Systems: Constitutional: No chills, No fever, No sweats Eyes: No diplopia ENT: No sore throat, No tinnitus Respiratory: No cough, No dyspnea on exertion, No shortness of breath, No sputum Cardiovascular: No chest pain, No palpitations Abdomen: No diarrhea, No nausea, No pain, No vomiting Musculoskeletal: No joint pain Genitourinary - Female: No dysuria Neurologic: No memory loss, No numbness/tingling Physical Exam: General Appearance: WD/WN, no apparent distress Eyes: PERRL, EOMI ENT: hearing grossly normal, pharynx normal Neck: supple, no JVD Respiratory/Chest: chest non-tender, no respiratory distress, no accessory muscle use, + pertinent finding (pleurex catheter in place on Right posterior chest wall intact, surrounding area without erythema, dressing c/d/i.) Cardiovascular: regular rate, rhythm, no murmur Abdomen / GI: normal bowel sounds, non tender, soft Extremities: normal inspection, no calf tenderness, no pedal edema Neurologic/Psychiatric: alert, normal mood/affect, oriented x 3 Skin: normal color, warm/dry (Lynn Warren, PACorie) Hospital Course H&P per Harry Olivo MD. History of Present Illness Source: patient, friend The patient is a 65 year old female who is generally worsening weakness and fatigue, shortness of breath, decline in mental acuity, swelling in bilateral lower extremities, and heart racing over the past few months, but in particular over the past few weeks. She's also recently noticed bringing up bile colored material from her stomach. She has a known history of CHF, and is taking aspirin and Xarelto daily. 65 y/o smoker female presented with worsening of her chronic cough, with production of yellowish/greenish sputum. PMHx of CAD, CABG x 4 with previous NC , bioprosthetic aortic and mitral valves, COPD, s/p splenectomy, DM type unspecified an uncontrolled, and iron deficiency anemia. PE: Date Time Temp Pulse Resp B/P Pulse Ox O2 Delivery O2 Flow Rate FiO2 04/18/16 21:30 37.0 93 26 132/69 94 Room Air 04/18/16 19:59 91 16 128/65 93 Room Air 04/18/16 18:20 88 24 134/71 94 Room Air 04/18/16 17:57 95 Room Air 04/18/16 17:41 95 117/50 96 Room Air 95 130/90 97 110/41 04/18/16 17:06 94 04/18/16 16:47 95 Room Air 04/18/16 16:42 95 Room Air 04/18/16 16:24 36.8 95 18 96/59 95 Room Air The patient is awake, alert and oriented 3, normocephalic and atraumatic, lying in bed and in no acute distress. HEENT--PERRL, EOMI, mucous membranes moist, and oropharynx normal. Neck--supple, no JVD or bruits, thyroid normal, trachea midline, no adenopathy. Heart--normal S1 and S2, no extra beats, no murmurs, rubs or gallops. Lungs--decreased breath sounds at the bases bilaterally, no respiratory distress , no accessory muscle use. Abdomen--normal bowel sounds and soft, nontender and nondistended, no hernias or masses, no organomegaly. Extremities--no cyanosis, clubbing. There is bilaterally 2+ pitting Edema. There are good distal pulses b/l. Dermatologic--normal skin turgor, normal color, warm and dry, no abnormal lymph nodes, no rash. Neurologic--cranial nerves II through XII grossly intact. Psychiatric--normal affect. Hospital Course Worsening chronic cough / moderate to severe right pleural effusion with Hx of smoking - CT chest on admission showed possible Mass/enlarged LN with possible post obstructive pneumonia, Repeat CT with contrast 04/22 is not suggestive of mass or lymphadenopathy or PNA - switched Azithro to levofloxacin- has had 7 days of antibiotics so far. Will discharge with 3 more days to complete a 10 day course. - Thoracentesis was completed on 04/19 - negative for malignancy - Pleurex cath placed on 04/21- plan for pt to go home wi catheter with HH services since was denied by [facility]. Pleurex home health kit is in the nursing station- spoke with CM and pt is set up for HH to come to her house tomorrow. - Appeciate pulm recs an management of pleurex catheter- will need f/u scheduled within 2 weeks, they will call her for appt. - D/c xarelto and continue coumadin today. A prescription was given to the patient for labwork to be completed on Wednesday for INR check. Home health can draw these labs for short term. Results should be followed by her PCP or the coumadin clinic. - Cont ASA 81 mg daily COPD without significant exacerbation - no wheezing, good breath sounds bilaterally. - pleurex catheter in place CAD sp CABG x 4, s/p acute NC, Chronic diastolic CHF, Paroxysmal Afib, bioprosthetic mitral and aortic valves - Will continue coumadin, 5 mg, per cardiology recs for paroxysmal afib - Follow INR on Wednesday - ECHO noted - s/p albumin 25 g with Lasix 40 mg IV 1 on 04/19- no pedal edema or signs of volume overload at this time. - Cont lasix 40 mg PO QAM - Cont metoprolol succinate 100 mg daily per cardiology recs - plan to increase as tolerated. DM, unknown type, uncontrolled - A1C = 6.4 on 04/20 - Resume oral meds upon discharge Constipation - Last BM was yesterday - Pt reports adequate fluid, has been drinking hot prune/butter juice, and has been walking a little more. - Cont bowel regimen: colace 100 mg BID, and mirilax every other day. Oral thrush - Will order nystatin swish and spit QID - continue for 7 more days GERD/Anemia - symptoms of upper GI bleed with a decrease in hemoglobin of about 3-1/2 g over the past year- has remained stable since admit ginette - low iron, elevated TIBC, normal B12 and folate - continue Protonix 40 mg BID-will switch to oral. - GI c/s noted, already has EGD set up as outpt - Also added venofer 100mg IV daily for 4 doses Pulmonary emboli history - Hold xarelto while restarting coumadin Allergic rhinitis -continue Flonase 2 sprays each nostril daily. Hypercholesterolemia- -Cont atorvastatin 80 mg QHS Hypothyroidism- - Cont levothyroxine DVT prophylaxis heparin SQ TID Disposition: From home, denied by [facility] yesterday, will plan to d/c with HH. Likely within 1-2 days. Total Time Spent: Greater than 30 minutes This includes examination of the patient, discharge planning, medication reconciliation, and communication with other providers. (Lynn Warren PA-C) Discharge Instructions Please refer to the electronic Patient Visit Report (Discharge Instructions) for additional information. (Lynn Warren PA-C) agree with PA discharge summary (Bart Candelario MD) Follow-Up Follow up with your Primary Care Provider within 1 week. Follow up with your [facility] within 2 weeks. Follow up with your Hospice Community Liaison within 1-2 weeks. (Lynn Warren PA-C) Additional Copies To Saulo Arthur M.D.
[2016-06-23] MEDS ORDERED: CHOL20009 PO (14:17)
[2016-07-01] MEDS ORDERED: ZINC1CAP PO (11:49)
[2016-07-01] MEDS ORDERED: MAGN400T6 PO (11:49)
[2016-09-07] MEDS ORDERED: DIPH25CA65 PO (11:43)
[2016-09-07] MEDS ORDERED: LEVO1TAB33 PO (11:43)
[2016-09-07] MEDS ORDERED: POLY335019 PO (11:43)
[2016-09-07] MEDS ORDERED: CMD5 PO (11:43)
[2016-09-07] MEDS ORDERED: NYSS/ PO (11:43)
[2016-09-07] MEDS ORDERED: AMOX500C3 PO (11:43)
[2016-09-07] MEDS ORDERED: METO1TAB69 PO (11:43)
[2016-11-24] MEDS ORDERED: LEVO1TAB33 PO (11:02)
[2016-11-24] MEDS ORDERED: ENOX40IN SQ (11:02)
== END 2016-04-25 14:51 | disposition home health service (06) | DRG 187 ==
LOC: ENRESERVTM → ENRESERVDT → C.EDB 16:17 → C.2T 19:44 → C.MS4W 04-23 17:44
PROVIDERS: ADMIT Hospitalist; ATTEND Hospitalist
PROC: 0W993ZZ Drainage of Right Pleural Cavity, Percutaneous Approach (ICD-10-PCS; principal; 2016-04-19)
PROC: 0WH933Z Insertion of Infusion Device into Right Pleural Cavity, Percutaneous Approach (ICD-10-PCS; 2016-04-21)
DX: J90 Pleural effusion, not elsewhere classified (principal); I50.32 Chronic diastolic (congestive) heart failure; J44.0 Chronic obstructive pulmonary disease with (acute) lower respiratory infection; I47.1 Supraventricular tachycardia; I42.9 Cardiomyopathy, unspecified; B37.0 Candidal stomatitis; J98.11 Atelectasis; I25.10 Atherosclerotic heart disease of native coronary artery without angina pectoris; I11.0 Hypertensive heart disease with heart failure; K59.00 Constipation, unspecified; E11.65 Type 2 diabetes mellitus with hyperglycemia; K21.9 Gastro-esophageal reflux disease without esophagitis; D50.9 Iron deficiency anemia, unspecified; Z87.891 Personal history of nicotine dependence; E03.9 Hypothyroidism, unspecified; J30.9 Allergic rhinitis, unspecified; Z86.711 Personal history of pulmonary embolism; Z79.01 Long term (current) use of anticoagulants; E78.00 Pure hypercholesterolemia, unspecified; I48.0 Paroxysmal atrial fibrillation; R04.0 Epistaxis; I25.2 Old myocardial infarction; E87.6 Hypokalemia; Z95.1 Presence of aortocoronary bypass graft; Z95.2 Presence of prosthetic heart valve; Z79.82 Long term (current) use of aspirin

== ENCOUNTER → 2016-05-08 | Outpatient (CLI) | payer OTHER ==
[~2016-05-08] MED LIST changes: +AMOX500C3 PO; +BACL10TA PO; +CHOL1000 PO; +CHOL20009 PO; +CMD5 PO; +DIPH25CA65 PO; +DOCU100C31 PO; +ENOX40IN SQ; +FOLI1TAB7 PO; +LEVO112T4 PO; -LEVO125T4 PO; +LEVO1TAB33 PO; +MAGN400T6 PO; +MRLP17X PO; +NYSS/ PO; +NYSS5 PO; -OMEP20CA9 PO; +OMEP40CA PO; +OMEP40CA41 PO; +ONDA4TAB46 PO; +POLY335019 PO; +REGADENOSON 0.4 MG/5 ML SYR ONE; -RIVA1TAB4 PO; +TRAM-10 PO; +WARF5TAB7 PO; +ZINC1CAP PO
--- NOTE | 2016-05-11 10:19 | MYOCARDIAL PERFUSION SCAN ---
ONE-DAY NUCLEAR MEDICINE TECHNETIUM-99M CARDIOLITE MYOCARDIAL PERFUSION SCAN CLINICAL HISTORY: The patient has a known history of coronary artery disease, left bundle-branch block, and chest pain syndrome. COMPARISON: None. TECHNIQUE: For the stress portion of the study, 32.4 mCi of Technetium 99 m Cardiolite IV was injected at 9:50 a.m. on 05/08/2016. 30 minutes following the injection, imaging of the heart was performed in multiple projection. For the rest portion of the study, 10.8 mCi of Technetium 99 m Cardiolite was injected IV at 7: 50 a.m. One hour following the injection, imaging of the heart was performed in the same projections. For the stress portion of the study, 0.4 mg of Lexiscan was injected intravenously as per protocol. The patient tolerated the infusion well. Blood pressure remained stable. There were no EKG changes over the baseline abnormality. Following the study, the patient was hemodynamically stable and without complaints. FINDINGS: Of note, the camera malfunctioned during this study. They were unable to gate any of the images, and therefore, no ejection fraction obtained. The short axis, vertical long axis, and horizontal long axis images were reviewed in detail. There is a fixed defect involving the inferior wall and adjacent inferoseptum and inferolateral wall present at both stress and rest. The rotating images suggest that this is related to significant subdiaphragmatic activity and not a prior myocardial infarction. There is no evidence of stress-induced myocardial ischemia. IMPRESSION: 1. Technically limited study -- see above. 2. No definite scintigraphic evidence of a prior myocardial infarction or myocardial ischemia. 3. Significant subdiaphragmatic attenuation noted. 4. Gating of left ventricular systolic function was not available. [facility]
== END | disposition home or self-care (01) ==
LOC: C.NUCL 07:28
PROVIDERS: ATTEND Internal Medicine Cardiovascular Disease
DX: I25.10 Atherosclerotic heart disease of native coronary artery without angina pectoris (principal); I50.32 Chronic diastolic (congestive) heart failure; R06.02 Shortness of breath; R07.9 Chest pain, unspecified

== ENCOUNTER → 2016-05-12 | Outpatient (CLI) | payer OTHER ==
[~2016-05-12] MED LIST changes: -REGADENOSON 0.4 MG/5 ML SYR ONE
--- NOTE | 2016-05-12 12:59 | DIAGNOSTIC IMAGING REPORT ---
CHEST 2 VIEWS ROUTINE HISTORY: Follow-up pleural effusion. COMPARISON: Chest 04/22/2016. FINDINGS: A right basilar pleural catheter is again noted. Trace bilateral pleural effusions have improved. The heart is normal in size. There are poststernotomy changes. No pneumothorax identified. There are scattered calcified granulomas. Calcified mediastinal lymph nodes. Surgical clips seen within the mid abdomen. IMPRESSION: 1. Right basilar chest tube is again noted. Trace bilateral pleural effusions have improved. 2. No pneumothorax. Electronically signed by: Beck Dixon M.D. 05/12/2016 12:58 PM Dictated Date/Time: 05/12/2016 12:54 PM
== END | disposition home or self-care (01) ==
LOC: C.RAD1850 12:32
PROVIDERS: ATTEND Surgery
DX: J90 Pleural effusion, not elsewhere classified (principal)

== ENCOUNTER → 2016-06-11 | Outpatient (CLI) | payer OTHER ==
[~2016-06-11] MED LIST changes: +LIDOCAINE HCL 2% 2 ML VIAL (20MG/ML) ONE; +PROPOFOL IV EMULSION 10 MG/ML 20 ML VIAL IV ONE
--- NOTE | 2016-06-11 12:29 | DIAGNOSTIC IMAGING REPORT ---
CHEST 2 VIEWS ROUTINE CLINICAL HISTORY: PLEA URAL EFFUSION dyspnea COMPARISON STUDY: 05/12/2016 FINDINGS: Small right effusion. Trace pleural fluid left lateral costophrenic angle. No change as compared to the prior study. Prior median sternotomy. Drainage catheter right base is again noted. IMPRESSION: Small stable right pleural effusion with an unchanged position of a right basilar drainage catheter. Trace pleural fluid left base also unchanged. Electronically signed by: Zen Abel M.D. 06/11/2016 12:27 PM Dictated Date/Time: 06/11/2016 12:27 PM
== END | disposition home or self-care (01) ==
LOC: C.RAD1850 12:14
PROVIDERS: ATTEND Internal Medicine
DX: J90 Pleural effusion, not elsewhere classified (principal)

== ENCOUNTER → 2016-06-15 | Outpatient (CLI) | payer OTHER ==
[~2016-06-15] MED LIST changes: -LIDOCAINE HCL 2% 2 ML VIAL (20MG/ML) ONE; -PROPOFOL IV EMULSION 10 MG/ML 20 ML VIAL IV ONE
[2016-06-15 19:31] LABS: URINE APPEARANCE CLEAR (CLEAR); URINE BILIRUBIN NEG (NEG); URINE COLOR YELLOW; URINE NITRITE NEG (NEG); UROBILINOGEN NEG (NEG)
[2016-06-15 19:35] LABS: MANUAL MICROSCOPIC REQUIRED? NO; REVIEW REQ? NO
== END | disposition home or self-care (01) ==
LOC: C.LABSPEC 17:24
PROVIDERS: ATTEND Internal Medicine
DX: E11.9 Type 2 diabetes mellitus without complications (principal)

== ENCOUNTER → 2016-07-01 | Day surgery (SDC) | payer OTHER ==
[2016-06-23 14:02] VITALS: Ht 158.8 cm; Wt 55.0 kg
[~2016-07-01] VITALS: Ht 158.8 cm; Wt 55.0 kg
[~2016-07-01] MED LIST changes: -ALBU1NEB10 NEB; +BCTCR/30 EXT; -CHOL1000 PO; +METO100T44 PO; -METO1TAB69 PO; -NYSS5 PO; +ONDA4TAB65 PO; +RANI300T2 PO; +SODIUM CHLORIDE 0.9% 500ML 500 ML IV ONE; +VNTHFA/IN INH
--- NOTE | 2016-07-01 12:28 | Endo History and Physical ---
History & Physical Date of Service: Jul 01, 2016. Chief Complaint: ANEMIA Referring Physician: DR SADLER History of Present Illness 66 yo CF who presents for EGD secondary to anemia. Past Medical History Diabetes, Angioplasty/Stent, Osteoporosis, Asthma, Pulmonary Emboli, Anxiety, Reflux, Cancer, CABG, CHF, Hypertension, COPD Past Surgical History Hx Cardiac Surgery: Yes (HEART CATH, CARDIAC ABLATION, CABG-4 VESSELS AND AVR/ MVR) Hx Abdominal Surgery: Yes (SPLEENECTOMY, D&C) Hx Post-Op Nausea and Vomiting: No Hx Cancer Surgery: Yes (MUSCLE BIOPSIES) Hx Thoracic Surgery: Yes (LUNG BIOPSIES, 5 TITANIUM COILS IN RT LUNG) Hx Orthopedic: No Hx Urinary Tract Surgery: Yes Family History Polyp Social History Smoking Status: Current Every Day Smoker Hx Substance Use: No Hx Alcohol Use: Yes (RARELY) Allergies Coded Allergies: Acetaminophen (Verified Allergy, Unknown, ?, 07/01/16) CAN TOLERATE SEPERATELY BUT NOT TOGETHER Atropine (Verified Allergy, Unknown, ?, 07/01/16) BEE STING (Verified Allergy, Unknown, SWELLING, 07/01/16) Cefaclor (Verified Allergy, Unknown, ?, 07/01/16) Codeine (Verified Allergy, Unknown, ?, 07/01/16) CAN TOLERATE SEPERATELY BUT NOT TOGETHER Dextromethorphan (Verified Allergy, Unknown, HALLUCINATION, 07/01/16) Diphenoxylate (Verified Allergy, Unknown, ?, 07/01/16) Doxylamine (Verified Allergy, Unknown, HALLUCINATION, 07/01/16) Ethanol (Verified Allergy, Unknown, HALLUCINATION, 07/01/16) Gold (Verified Allergy, Unknown, RASH, 07/01/16) Iodine (Verified Allergy, Unknown, "D/T ALLERGY TO SHRIMP", 07/01/16) Lidocaine (Verified Allergy, Unknown, LETHARGY, 07/01/16) Midazolam (Verified Allergy, Unknown, MUSCLE SPAMS AND HALLUCINATIONS, 07/01) Morphine (Verified Allergy, Unknown, SWELLING, 07/01/16) Penicillins (Verified Allergy, Unknown, ?, 07/01/16) Propantheline (Verified Allergy, Unknown, ?, 07/01/16) Propoxyphene (Verified Allergy, Unknown, SWELLING, 07/01/16) Pseudoephedrine (Verified Allergy, Unknown, HALLUCINATION, 07/01/16) Shellfish (Verified Allergy, Unknown, ?, 07/01/16) Shrimp (Verified Allergy, Unknown, THROAT SWELLS SHUT, 07/01/16) Succinylcholine (Verified Allergy, Unknown, TOLD NEVER TO USE, NEICE SEVERELY ALLERGIC TO MEDS, 07/01/16) Uncoded Allergies: DEMEROL (Allergy, Unknown, SWELLING, 06/23/16) STERI STRIPS (Allergy, Unknown, BLISTERS, 06/23/16) TALWIN (Allergy, Unknown, HIVES AND CONFUSION, 06/23/16) WALNUTS (Allergy, Unknown, SWELLING, 06/23/16) Current Medications Reported Home Medications Medications Dose Route/Sig Max Daily Dose Days Date Category Dose Instructions Zinc Sulfate 220 Mg Cap 220 Mg PO BID 07/01/16 Reported Mag-Ox (Magnesium Oxide) 400 Mg Tab 400 Mg PO BID 07/01/16 Reported Vitamin D (Cholecalciferol) 2,000 Unit Tab 1 Tab PO QAM 06/23/16 Reported Miralax (Polyethylene) 17 Gm Pow 17 Gm PO Q2D PRN 30 04/25/16 Rx Coumadin (Warfarin Sod) 5 Mg Tab 5 Mg PO DAILY@16 30 04/25/16 Rx Take 1 tablet daily unless otherwise directed by the coumadin clinic Toprol-Xl (Metoprolol Succinate) 100 Mg Tabcr 100 Mg PO QAM 30 04/25/16 Rx Ultram (Tramadol HCl) 50 Mg Tab 50 Mg PO Q6 PRN 04/18/16 Reported Zofran (Ondansetron HCl) 4 Mg Tab 4 Mg PO Q6H PRN 04/18/16 Reported Prilosec (Omeprazole) 40 Mg Capcr 40 Mg PO QAM 04/18/16 Reported Levothyroxine Sodium 112 Mcg Tab 112 Mcg PO DAILY 90 04/18/16 Reported Folvite (Folic Acid) 1 Mg Tab 2 Mg PO QAM 04/18/16 Reported Lioresal (Baclofen) 10 Mg Tab 10 Mg PO TID PRN 04/18/16 Reported Fiorinal/Codeine #3 (Jaojndakye-Gmazcux-Fihdawbw W/) 1 Cap Cap 1 Cap PO Q6 PRN 07/05/14 Reported Lipitor (Atorvastatin Calcium) 80 Mg Tab 80 Mg PO HS 07/05/14 Reported Cozaar (Losartan Potassium) 25 Mg Tab 25 Mg PO QAM 07/05/14 Reported Lasix (Furosemide) 40 Mg Tab 40 Mg PO QAM 07/05/14 Reported Ecotrin Or Generic (Aspirin) 81 Mg Tab 81 Mg PO HS 04/09/14 Reported Advair Diskus 250/50 60 Dose (Fluticasone Prop/Salmeterol) 1 Ea Aerp 1 Puff INH BID 04/09/14 Reported Fluticasone Propionate 120 Sprays/6000 Mcg Inha 2 Sprays MORALES DAILY 04/09/14 Reported Klor-Con (Potassium Chloride) 20 Meq Tabcr 20 Meq PO BID 04/09/14 Reported Colace (Docusate Sodium) 100 Mg Cap 100 Mg PO BID 02/21/14 Reported Combivent Respimat (Ipratropium-Albuterol) 1 Aer Aer 1 Puff INH QID PRN 06/12/13 Reported Nitrostat (Nitroglycerin) 0.4 Mg Tab 0.4 Mg UT UD PRN 10/07/[address] ONE TABLET UNDER THE TONGUE EVERY 5 MINUTES FOR UP TO 3 DOSES IF NEEDED FOR CHEST PAIN. Valium (Diazepam) 5 Mg Tab 5 Mg PO TID PRN 09/25/08 Reported Vital Signs Weight (Kilograms): 55 Height (Feet): 5 Height (Inches): 2.5 Date Time Temp Pulse Resp B/P Pulse Ox O2 Delivery O2 Flow Rate FiO2 07/01/16 11:59 36.8 88 20 111/46 100 Room Air Physical Exam General Appearance: WD/WN, no apparent distress Respiratory/Chest: Auscultation: breath sounds normal Cardiovascular: Heart Auscultation: RRR Abdomen: Bowel Sounds: normal Inspection & Palpation: soft, non-distended, no tenderness, guarding & rebound Assessment and Plan Assessment: 66 yo CF who presents for EGD secondary to anemia. Plan: Proceed with EGD.
--- NOTE | 2016-07-01 12:45 | Discharge Instructions ---
Endoscopy Patient Instructions Date / Procedure(s) Performed Jul 01, 2016. EGD Allergy Information Coded Allergies: Acetaminophen (Verified Allergy, Unknown, ?, 07/01/16) CAN TOLERATE SEPERATELY BUT NOT TOGETHER Atropine (Verified Allergy, Unknown, ?, 07/01/16) BEE STING (Verified Allergy, Unknown, SWELLING, 07/01/16) Cefaclor (Verified Allergy, Unknown, ?, 07/01/16) Codeine (Verified Allergy, Unknown, ?, 07/01/16) CAN TOLERATE SEPERATELY BUT NOT TOGETHER Dextromethorphan (Verified Allergy, Unknown, HALLUCINATION, 07/01/16) Diphenoxylate (Verified Allergy, Unknown, ?, 07/01/16) Doxylamine (Verified Allergy, Unknown, HALLUCINATION, 07/01/16) Ethanol (Verified Allergy, Unknown, HALLUCINATION, 07/01/16) Gold (Verified Allergy, Unknown, RASH, 07/01/16) Iodine (Verified Allergy, Unknown, "D/T ALLERGY TO SHRIMP", 07/01/16) Lidocaine (Verified Allergy, Unknown, LETHARGY, 07/01/16) Midazolam (Verified Allergy, Unknown, MUSCLE SPAMS AND HALLUCINATIONS, 07/01) Morphine (Verified Allergy, Unknown, SWELLING, 07/01/16) Penicillins (Verified Allergy, Unknown, ?, 07/01/16) Propantheline (Verified Allergy, Unknown, ?, 07/01/16) Propoxyphene (Verified Allergy, Unknown, SWELLING, 07/01/16) Pseudoephedrine (Verified Allergy, Unknown, HALLUCINATION, 07/01/16) Shellfish (Verified Allergy, Unknown, ?, 07/01/16) Shrimp (Verified Allergy, Unknown, THROAT SWELLS SHUT, 07/01/16) Succinylcholine (Verified Allergy, Unknown, TOLD NEVER TO USE, NEICE SEVERELY ALLERGIC TO MEDS, 07/01/16) Uncoded Allergies: DEMEROL (Allergy, Unknown, SWELLING, 06/23/16) STERI STRIPS (Allergy, Unknown, BLISTERS, 06/23/16) TALWIN (Allergy, Unknown, HIVES AND CONFUSION, 06/23/16) WALNUTS (Allergy, Unknown, SWELLING, 06/23/16) Discharge Date / Findings Jul 01, 2016. Gastritis s/p biopsies Hiatal hernia Narcisa esophagitis s/p brushings Medication Instructions Stopped Medication(s): ASPIRIN 81MG 06/30/16, COUMADIN 5MG 06/25/16 1) OK to resume all medications as prescribed 2) Diflucan 400mg by mouth today, then 200mg by mouth daily for 20 days. Reported Home Medications Medications Dose Route/Sig Max Daily Dose Days Date Category Dose Instructions Zinc Sulfate 220 Mg Cap 220 Mg PO BID 07/01/16 Reported Mag-Ox (Magnesium Oxide) 400 Mg Tab 400 Mg PO BID 07/01/16 Reported Vitamin D (Cholecalciferol) 2,000 Unit Tab 1 Tab PO QAM 06/23/16 Reported Miralax (Polyethylene) 17 Gm Pow 17 Gm PO Q2D PRN 30 04/25/16 Rx Coumadin (Warfarin Sod) 5 Mg Tab 5 Mg PO DAILY@16 30 04/25/16 Rx Take 1 tablet daily unless otherwise directed by the coumadin clinic Toprol-Xl (Metoprolol Succinate) 100 Mg Tabcr 100 Mg PO QAM 30 04/25/16 Rx Ultram (Tramadol HCl) 50 Mg Tab 50 Mg PO Q6 PRN 04/18/16 Reported Zofran (Ondansetron HCl) 4 Mg Tab 4 Mg PO Q6H PRN 04/18/16 Reported Prilosec (Omeprazole) 40 Mg Capcr 40 Mg PO QAM 04/18/16 Reported Levothyroxine Sodium 112 Mcg Tab 112 Mcg PO DAILY 90 04/18/16 Reported Folvite (Folic Acid) 1 Mg Tab 2 Mg PO QAM 04/18/16 Reported Lioresal (Baclofen) 10 Mg Tab 10 Mg PO TID PRN 04/18/16 Reported Fiorinal/Codeine #3 (Dpmxkkxagx-Glyhhlb-Xekerlmy W/) 1 Cap Cap 1 Cap PO Q6 PRN 07/05/14 Reported Lipitor (Atorvastatin Calcium) 80 Mg Tab 80 Mg PO HS 07/05/14 Reported Cozaar (Losartan Potassium) 25 Mg Tab 25 Mg PO QAM 07/05/14 Reported Lasix (Furosemide) 40 Mg Tab 40 Mg PO QAM 07/05/14 Reported Ecotrin Or Generic (Aspirin) 81 Mg Tab 81 Mg PO HS 04/09/14 Reported Advair Diskus 250/50 60 Dose (Fluticasone Prop/Salmeterol) 1 Ea Aerp 1 Puff INH BID 04/09/14 Reported Fluticasone Propionate 120 Sprays/6000 Mcg Inha 2 Sprays MORALES DAILY 04/09/14 Reported Klor-Con (Potassium Chloride) 20 Meq Tabcr 20 Meq PO BID 04/09/14 Reported Colace (Docusate Sodium) 100 Mg Cap 100 Mg PO BID 02/21/14 Reported Combivent Respimat (Ipratropium-Albuterol) 1 Aer Aer 1 Puff INH QID PRN 06/12/13 Reported Nitrostat (Nitroglycerin) 0.4 Mg Tab 0.4 Mg UT UD PRN 10/07/[address] ONE TABLET UNDER THE TONGUE EVERY 5 MINUTES FOR UP TO 3 DOSES IF NEEDED FOR CHEST PAIN. Valium (Diazepam) 5 Mg Tab 5 Mg PO TID PRN 09/25/08 Reported Provider Instructions Activity Restrictions - No exercising or heavy lifting for 24 hours. - Do not drink alcohol the day of the procedure. - Do not drive a car or operate machinery until the day after the procedure. - Do not make any important decisions or sign important papers in 24 hours after the procedure. Following Day: - Return to full activity which may include returning to work/school. Diet Start your diet with liquids and light foods (jello, soup, juice, toast). Then eat your usual diet if not nauseated. Treatment For Common After Affects For mild abdominal pain, bloating, or excessive gas: - Rest - Eat lightly - Lie on right side Follow-Up Information Follow-up with DR SADLER as scheduled Anesthesia Information What You Should Know You have had a procedure that required some medicine to reduce anxiety and discomfort. This treatment is called moderate sedation. After receiving the treatment, you may be sleepy, but you will be able to breathe on your own. The effects of the treatment may last for several hours. Follow these instructions along with Activity/Diet recommendations noted above: * Do NOT do anything where dizziness or clumsiness would be dangerous. * Rest quietly at home today, then you can be up and about tomorrow. * Have a responsible person stay with you the rest of today. * You may have had an I.V. today. If so, you may take the dressing off later today. Recommendations Call your doctor if: * Trouble breathing * Continuous vomiting for more than 24 hours * Temperature above 101 degrees * Severe abdominal pain or bloating * Pain not relieved by pain medicine ordered * There is increased drainage or redness from any incision * A large amount of rectal bleeding greater than 2-3 tablespoons. (If you had a polyp/s removed or have hemorrhoids, a small amount of blood - from the rectum is to be expected.) * You have any unanswered questions or concerns. IN THE EVENT OF A SERIOUS EMERGENCY, GO TO THE NEAREST EMERGENCY ROOM Your discharge instructions were prepared by provider Kenneth Wan. Patient Instructions Signature Page Litzy Preston Patient (or Guardian) Signature/Date: I have read and understand the instructions given to me by my caregivers. Caregiver/RN/Doctor Signature/Date: The above-named patient and/or guardian has received patient instructions on this date. + Original Patient Signature Page (only) stays with chart. Please make copy for patient.
--- NOTE | 2016-07-01 12:51 | Anesthesiology Progress Note ---
Anesthesia Post Op Note Date & Time Jul 01, 2016 at 12:51 Vital Signs Pain Intensity: 3 Vital Signs Past 12 Hours Date Time Temp Pulse Resp B/P Pulse Ox O2 Delivery O2 Flow Rate FiO2 07/01/16 12:39 81 16 101/61 100 Room Air 07/01/16 11:59 36.8 88 20 111/46 100 Room Air Notes Mental Status: alert / awake / arousable, participated in evaluation Pt Amnestic to Procedure: Yes Nausea / Vomiting: adequately controlled Pain: adequately controlled Airway Patency, RR, SpO2: stable & adequate BP & HR: stable & adequate Hydration State: stable & adequate Anesthetic Complications: no major complications apparent Pt doing well.
[2016-07-01 13:09] VITALS: BP 123/64; PULSE 79; O2SAT 100
--- NOTE | 2016-07-01 14:53 | GI REPORT ---
Procedure Date: 07/01/2016 12:00 PM Procedure: Upper GI endoscopy Indications: Iron deficiency anemia Medicines: Monitored Anesthesia Care Complications: No immediate complications. Estimated Blood Loss: Estimated blood loss: none. Procedure: Pre-Anesthesia Assessment: - Prior to the procedure, a History and Physical was performed, and patient medications and allergies were reviewed. The patient's tolerance of previous anesthesia was also reviewed. The risks and benefits of the procedure and the sedation options and risks were discussed with the patient. All questions were answered, and informed consent was obtained. Prior Anticoagulants: The patient has taken no previous anticoagulant or antiplatelet agents. ASA Grade Assessment: II - A patient with mild systemic disease. After reviewing the risks and benefits, the patient was deemed in satisfactory condition to undergo the procedure. After obtaining informed consent, the endoscope was passed under direct vision. Throughout the procedure, the patient's blood pressure, pulse, and oxygen saturations were monitored continuously. The scope was introduced through the mouth, and advanced to the second part of duodenum. The upper GI endoscopy was accomplished without difficulty. The patient tolerated the procedure well. Findings: Diffuse candidiasis was found in the entire esophagus. Cells for cytology were obtained by brushing. A small hiatus hernia was present. Localized mild inflammation characterized by erythema was found in the gastric antrum. Biopsies were taken with a cold forceps for histology. The examined duodenum was normal. Impression: - Monilial esophagitis. Cells for cytology obtained. - Small hiatus hernia. - Gastritis. Biopsied. - Normal examined duodenum. Recommendation: - Resume previous diet. - Continue present medications. - Await pathology results. - Return to GI office as previously scheduled. Kenneth Wan, DO 07/01/2016 2:53:54 PM This report has been signed electronically. Note Initiated On: 07/01/2016 12:00 PM I attest to the content of the Intraoperative Record and orders documented therein, exceptions below
== END | disposition home or self-care (01) ==
LOC: C.GI 11:28
PROVIDERS: ATTEND Internal Medicine
DX: D50.9 Iron deficiency anemia, unspecified (principal); K44.9 Diaphragmatic hernia without obstruction or gangrene; K29.60 Other gastritis without bleeding; E11.9 Type 2 diabetes mellitus without complications; Z95.1 Presence of aortocoronary bypass graft; I10 Essential (primary) hypertension; F17.210 Nicotine dependence, cigarettes, uncomplicated; J44.9 Chronic obstructive pulmonary disease, unspecified

== ENCOUNTER → 2016-07-14 | Outpatient (CLI) | payer OTHER ==
[~2016-07-14] MED LIST changes: -SODIUM CHLORIDE 0.9% 500ML 500 ML IV ONE
[2016-07-14 14:49] LABS: BASO % 1.1 %; EOS % 2.4 %; HEMATOCRIT 32.4 % (37-47); IG% 0.2 %; LYMPH % 19.8 %; LYMPH ABS # 1.75 K/uL (1.2-3.4); MEAN CORPUSCULAR HEMOGLOBIN 24.6 pg (25-34); MEAN CORPUSCULAR HGB CONC 31.2 g/dl (32-36); MEAN PLATELET VOLUME 10.1 fL (7.4-10.4); MONO % 8.4 %; NEUT % 68.1 %; PLATELET COUNT 411 K/uL (130-400); WHITE BLOOD COUNT 8.85 K/uL (4.8-10.8)
[2016-07-14 15:05] LABS: PROTHROMBIN TIME (PATIENT) 76.4 SECONDS (9.0-12.0)
[2016-07-14 15:18] LABS: THYROID STIMULATING HORMONE 0.385 uIu/ml (0.300-4.500)
[2016-07-14 15:28] LABS: ESTIMATED AVERAGE GLUCOSE 143 mg/dl; HA1C FLAG Normal (Normal)
[2016-07-14 15:32] LABS: INR 6.6 (0.9-1.1)
[2016-07-14 15:54] LABS: ANISOCYTOSIS PRESENT; COMPLETE YES; HYPOCHROMIA PRESENT; LARGE PLATELETS 1+; SCHISTOCYTES OCCASIONAL; SPHEROCYTE 1+; TARGET CELLS 1+
== END | disposition home or self-care (01) ==
LOC: C.LABSPEC 13:59
PROVIDERS: ATTEND Internal Medicine
DX: E11.9 Type 2 diabetes mellitus without complications (principal); D64.9 Anemia, unspecified; E03.9 Hypothyroidism, unspecified; I82.409 Acute embolism and thrombosis of unspecified deep veins of unspecified lower extremity

== ENCOUNTER → 2016-07-15 | Outpatient (CLI) | payer OTHER ==
[2016-07-15 15:37] LABS: PROTHROMBIN TIME (PATIENT) 63.9 SECONDS (9.0-12.0)
[2016-07-15 15:47] LABS: INR 5.6 (0.9-1.1)
== END | disposition home or self-care (01) ==
LOC: C.LAB1850 13:59
PROVIDERS: ATTEND Internal Medicine
DX: I82.409 Acute embolism and thrombosis of unspecified deep veins of unspecified lower extremity (principal)

== ENCOUNTER → 2016-07-15 | Outpatient (CLI) | payer OTHER ==
--- NOTE | 2016-07-15 14:31 | DIAGNOSTIC IMAGING REPORT ---
CHEST 2 VIEWS ROUTINE CLINICAL HISTORY: Pleural effusion COMPARISON STUDY: 06/11/2016 FINDINGS: The heart is normal in size. There are postsurgical changes of a midline sternotomy. There is scattered granulomatous calcifications present. There is a right-sided drain. There are small bilateral pleural effusions. There are peritendinous calcifications present the level the right shoulder.[ IMPRESSION: No significant change from the preceding study. Persistent right pleural drainage catheter. Small bilateral pleural effusions. No acute parenchymal consolidation. Electronically signed by: Jeromy Torres M.D. 07/15/2016 2:29 PM Dictated Date/Time: 07/15/2016 2:27 PM
== END | disposition home or self-care (01) ==
LOC: C.RAD1850 14:14
PROVIDERS: ATTEND Physician Assistant
DX: J90 Pleural effusion, not elsewhere classified (principal); I82.409 Acute embolism and thrombosis of unspecified deep veins of unspecified lower extremity

== ENCOUNTER → 2016-07-16 | Outpatient (CLI) | payer OTHER ==
--- NOTE | 2016-08-04 13:57 | CODING QUERY MEDICAL NECESSITY ---
SUPPORTING DIAGNOSIS NEEDED Dr. Arthur, A supporting diagnosis is required for the test/procedure performed on this patient in order for us to be reimbursed by the patient's insurance. Please provide a supporting diagnosis for the following test/procedure listed below next to the test name along with your signature. *If there is no additional diagnosis for this patient that would support the following test/procedure please document that below next to the test/procedure. Test(s)/Procedure(s) that require a supporting diagnosis: * ([id number]) FOLATE LEVEL DIAGNOSIS: DATE OF SERVICE: 07/16/16 Provider Signature: Date: Thank you Neil Evans [facility] Information Management Once completed, please kindly fax back to [phone] For questions please call [phone]
== END | disposition home or self-care (01) ==
LOC: C.LABBFT 14:42
PROVIDERS: ATTEND Internal Medicine
DX: D64.9 Anemia, unspecified (principal); I48.91 Unspecified atrial fibrillation; I82.409 Acute embolism and thrombosis of unspecified deep veins of unspecified lower extremity

== ENCOUNTER → 2016-07-28 | Outpatient (CLI) | payer OTHER ==
[2016-07-28 15:02] LABS: PROTHROMBIN TIME (PATIENT) > 100.0 SECONDS (9.0-12.0)
[2016-07-28 15:32] LABS: INR > 8.0 (0.9-1.1)
== END | disposition home or self-care (01) ==
LOC: C.LABSPEC 12:50
PROVIDERS: ATTEND Internal Medicine
DX: Z51.81 Encounter for therapeutic drug level monitoring (principal)

== ENCOUNTER → 2016-07-31 | Outpatient (CLI) | payer OTHER ==
[2016-07-31 10:54] LABS: PROTHROMBIN TIME (PATIENT) 72.1 SECONDS (9.0-12.0)
[2016-07-31 11:04] LABS: INR 6.2 (0.9-1.1)
== END | disposition home or self-care (01) ==
LOC: C.LABSPEC 10:14
PROVIDERS: ATTEND Internal Medicine
DX: I48.91 Unspecified atrial fibrillation (principal); I82.409 Acute embolism and thrombosis of unspecified deep veins of unspecified lower extremity; J90 Pleural effusion, not elsewhere classified; Z43.8 Encounter for attention to other artificial openings; Z51.81 Encounter for therapeutic drug level monitoring

== ENCOUNTER → 2016-08-03 | Outpatient (CLI) | payer OTHER ==
[2016-08-03 16:27] LABS: PROTHROMBIN TIME (PATIENT) 10.6 SECONDS (9.0-12.0)
== END | disposition home or self-care (01) ==
LOC: C.LABSPEC 15:38
PROVIDERS: ATTEND Physician Assistant Medical
DX: I82.409 Acute embolism and thrombosis of unspecified deep veins of unspecified lower extremity (principal)

== ENCOUNTER → 2016-08-20 | Outpatient (CLI) | payer OTHER | END | disposition home or self-care (01) | LOC: C.MAMM 11:13 | PROVIDERS: ATTEND Internal Medicine | DX: M85.851 Other specified disorders of bone density and structure, right thigh (principal); M85.852 Other specified disorders of bone density and structure, left thigh ==

== ENCOUNTER → 2016-08-25 | Outpatient (CLI) | payer OTHER ==
--- NOTE | 2016-08-25 11:16 | DIAGNOSTIC IMAGING REPORT ---
CHEST 2 VIEWS ROUTINE CLINICAL HISTORY: Pleural effusion. COMPARISON STUDY: Chest radiograph July 15, 2016. FINDINGS: Calcified thoracic lymph nodes are again noted as well as several calcified pulmonary nodules. Right pleural catheter remains in place. Small right and trace left pleural effusions persist. There are median sternotomy wires and clips from bypass grafting. Cardiac size is normal. There is no pneumothorax. There is no evidence of pulmonary edema. Suspected pleural fluid within the lateral right mid hemithorax is noted. IMPRESSION: No significant change in small right and trace left pleural effusions with right pleural catheter in place. No pneumothorax. Electronically signed by: Nguyễn Thacker M.D. 08/25/2016 11:15 AM Dictated Date/Time: 08/25/2016 11:12 AM
== END | disposition home or self-care (01) ==
LOC: C.RAD1850 10:44
PROVIDERS: ATTEND Surgery
DX: J90 Pleural effusion, not elsewhere classified (principal)

== ENCOUNTER → 2016-08-27 | Outpatient (CLI) | payer OTHER | END | disposition home or self-care (01) | LOC: C.PAPS 13:48 | PROVIDERS: ATTEND Obstetrics & Gynecology | DX: Z01.419 Encounter for gynecological examination (general) (routine) without abnormal findings (principal) ==

== ENCOUNTER → 2016-09-09 | Day surgery (SDC) | payer OTHER ==
[2016-09-07 11:44] VITALS: Ht 158.8 cm; Wt 55.0 kg
[~2016-09-09] VITALS: Ht 158.8 cm; Wt 55.0 kg
[~2016-09-09] MED LIST changes: -FLNIN/ NAE; +LIDOCAINE HCL 2% 2 ML VIAL (20MG/ML) ONE; -MRLP17X PO; +ONDANSETRON INJ 2 MG/ML 2 ML VIAL IV PRN; +PHENYLEPHRINE 100MCG/ML 5ML SYR ONE; +PROPOFOL IV EMULSION 10 MG/ML 20 ML VIAL IV ONE; -ZINC1CAP PO
--- NOTE | 2016-09-09 13:24 | Endo History and Physical ---
History & Physical Date of Service: Sep 09, 2016. Chief Complaint: Colon polyp follow-up Referring Physician: History of Present Illness Patient presenting for a surveillance colonoscopy. Past Medical History Diabetes, Angioplasty/Stent, Osteoporosis, Asthma, Pulmonary Emboli, Anxiety, Reflux, Cancer, CABG, CHF, Hypertension, COPD Past Surgical History Hx Cardiac Surgery: Yes (HEART CATH, CARDIAC ABLATION, CABG-4 VESSELS AND AVR/ MVR) Hx Abdominal Surgery: Yes (SPLEENECTOMY, D&C) Hx Post-Op Nausea and Vomiting: No Hx Cancer Surgery: Yes (MUSCLE BIOPSIES) Hx Thoracic Surgery: Yes (LUNG BIOPSIES, 5 TITANIUM COILS IN RT LUNG) Hx Orthopedic: No Hx Urinary Tract Surgery: Yes Family History Polyp Social History Smoking Status: Current Every Day Smoker Hx Substance Use: No Hx Alcohol Use: Yes (RARELY) Allergies Coded Allergies: Acetaminophen (Verified Allergy, Unknown, ?, 09/07/16) CAN TOLERATE SEPERATELY BUT NOT TOGETHER Atropine (Verified Allergy, Unknown, ?, 09/07/16) BEE STING (Verified Allergy, Unknown, SWELLING, 09/07/16) Cefaclor (Verified Allergy, Unknown, ?, 09/07/16) Codeine (Verified Allergy, Unknown, ?, 09/07/16) CAN TOLERATE SEPERATELY BUT NOT TOGETHER Dextromethorphan (Verified Allergy, Unknown, HALLUCINATION, 09/07/16) Diphenoxylate (Verified Allergy, Unknown, ?, 09/07/16) Doxylamine (Verified Allergy, Unknown, HALLUCINATION, 09/07/16) Ethanol (Verified Allergy, Unknown, HALLUCINATION, 09/07/16) Gold (Verified Allergy, Unknown, RASH, 09/07/16) Iodine (Verified Allergy, Unknown, "D/T ALLERGY TO SHRIMP", 09/07/16) Lidocaine (Verified Allergy, Unknown, LETHARGY, 09/07/16) Midazolam (Verified Allergy, Unknown, MUSCLE SPAMS AND HALLUCINATIONS, 03/14) Morphine (Verified Allergy, Unknown, SWELLING, 09/07/16) Penicillins (Verified Allergy, Unknown, ?, 09/07/16) Propantheline (Verified Allergy, Unknown, ?, 09/07/16) Propoxyphene (Verified Allergy, Unknown, SWELLING, 09/07/16) Pseudoephedrine (Verified Allergy, Unknown, HALLUCINATION, 09/07/16) Shellfish (Verified Allergy, Unknown, ?, 09/07/16) Shrimp (Verified Allergy, Unknown, THROAT SWELLS SHUT, 09/07/16) Succinylcholine (Verified Allergy, Unknown, TOLD NEVER TO USE, NEICE SEVERELY ALLERGIC TO MEDS, 09/07/16) Uncoded Allergies: DEMEROL (Allergy, Unknown, SWELLING, 06/23/16) STERI STRIPS (Allergy, Unknown, BLISTERS, 06/23/16) TALWIN (Allergy, Unknown, HIVES AND CONFUSION, 06/23/16) WALNUTS (Allergy, Unknown, SWELLING, 06/23/16) Current Medications Reported Home Medications Medications Dose Route/Sig Max Daily Dose Days Date Category Dose Instructions Coumadin (Warfarin Sod) 5 Mg Tab 5 Mg PO DAILY 09/07/16 Reported HOLDING PRIOR TO PROCEDURE Nystatin Suspension (Nystatin) 1 Ml Susp 1 Dose PO DAILY PRN 09/07/16 Reported Miralax (Polyethylene Glycol 3350) 1 Pow Pow 17 Gm PO DAILY PRN 09/07/16 Reported Toprol-Xl (Metoprolol Succinate) 100 Mg Tabcr 100 Mg PO QAM 09/07/16 Reported Levaquin (Levofloxacin) 500 Mg Tab 500 Mg PO DAILY PRN 7 09/07/16 Reported Amoxil (Amoxicillin) 500 Mg Cap 2,000 Mg PO UD 09/07/16 Reported ONE HOUR PRIOR TO DENTAL Benadryl Allergy (Diphenhydramine Hcl) 25 Mg Cap 1 Cap PO HS PRN 09/07/16 Reported Mag-Ox (Magnesium Oxide) 400 Mg Tab 400 Mg PO BID 07/01/16 Reported Vitamin D (Cholecalciferol) 2,000 Unit Tab 1 Tab PO QAM 06/23/16 Reported Ultram (Tramadol HCl) 50 Mg Tab 50 Mg PO Q6 PRN 04/18/16 Reported Zofran (Ondansetron HCl) 4 Mg Tab 4 Mg PO Q6H PRN 04/18/16 Reported Prilosec (Omeprazole) 40 Mg Capcr 40 Mg PO QAM 04/18/16 Reported Levothyroxine Sodium 112 Mcg Tab 112 Mcg PO QAM 90 04/18/16 Reported Folvite (Folic Acid) 1 Mg Tab 2 Mg PO QAM 04/18/16 Reported Lioresal (Baclofen) 10 Mg Tab 10 Mg PO TID PRN 04/18/16 Reported Fiorinal/Codeine #3 (Rtjzyqhmck-Fmyqdnj-Vonbqtwk W/) 1 Cap Cap 1 Cap PO Q6 PRN 07/05/14 Reported Lipitor (Atorvastatin Calcium) 80 Mg Tab 80 Mg PO HS 07/05/14 Reported Cozaar (Losartan Potassium) 25 Mg Tab 25 Mg PO QAM 07/05/14 Reported Lasix (Furosemide) 40 Mg Tab 40 Mg PO QAM 07/05/14 Reported Ecotrin Or Generic (Aspirin) 81 Mg Tab 81 Mg PO HS 04/09/14 Reported Advair Diskus 250/50 60 Dose (Fluticasone Prop/Salmeterol) 1 Ea Aerp 1 Puff INH BID 04/09/14 Reported Klor-Con (Potassium Chloride) 20 Meq Tabcr 20 Meq PO BID 04/09/14 Reported Colace (Docusate Sodium) 100 Mg Cap 100 Mg PO BID 02/21/14 Reported Combivent Respimat (Ipratropium-Albuterol) 1 Aer Aer 1 Puff INH QID PRN 06/12/13 Reported Nitrostat (Nitroglycerin) 0.4 Mg Tab 0.4 Mg UT UD PRN 10/07/[address] ONE TABLET UNDER THE TONGUE EVERY 5 MINUTES FOR UP TO 3 DOSES IF NEEDED FOR CHEST PAIN. Valium (Diazepam) 5 Mg Tab 5 Mg PO TID PRN 09/25/08 Reported Vital Signs Weight (Kilograms): 55 Height (Feet): 5 Height (Inches): 2.5 Physical Exam General Appearance: no apparent distress Respiratory/Chest: Auscultation: deminished air movement Cardiovascular: Heart Auscultation: RRR Abdomen: Inspection & Palpation: soft Assessment and Plan Colonoscopy for evaluation of prior colon polyps. Risks discussed to include bleeding, infection, perforation, pain and missed polyps.
--- NOTE | 2016-09-09 14:21 | GI REPORT ---
Procedure Date: 09/09/2016 1:51 PM Procedure: Colonoscopy Indications: High risk colon cancer surveillance: Personal history of colonic polyps, Incidental constipation noted Medicines: Monitored Anesthesia Care Complications: No immediate complications. Estimated blood loss: Minimal. Estimated Blood Loss: Estimated blood loss was minimal. Procedure: Pre-Anesthesia Assessment: - Prior to the procedure, a History and Physical was performed, and patient medications, allergies and sensitivities were reviewed. The patient's tolerance of previous anesthesia was reviewed. - The risks and benefits of the procedure and the sedation options and risks were discussed with the patient. All questions were answered and informed consent was obtained. - Patient identification and proposed procedure were verified prior to the procedure by the physician, the nurse and the vice president of brand management. The procedure was verified in the procedure room. - Pre-procedure physical examination revealed no contraindications to sedation. - ASA Grade Assessment: III - A patient with severe systemic disease. - After reviewing the risks and benefits, the patient was deemed in satisfactory condition to undergo the procedure. - The anesthesia plan was to use general anesthesia. - Immediately prior to administration of medications, the patient was re-assessed for adequacy to receive sedatives. - The heart rate, respiratory rate, oxygen saturations, blood pressure, adequacy of pulmonary ventilation, and response to care were monitored throughout the procedure. - The physical status of the patient was re-assessed after the procedure. After I obtained informed consent, the scope was passed under direct vision. Throughout the procedure, the patient's blood pressure, pulse, and oxygen saturations were monitored continuously. The scope was introduced through the anus and advanced to the terminal ileum. The colonoscopy was performed without difficulty. The patient tolerated the procedure well. The quality of the bowel preparation was adequate to identify polyps 6 mm and larger in size. Findings: The perianal and digital rectal examinations were normal. Pertinent negatives include normal sphincter tone. A 6 mm polyp was found in the transverse colon. The polyp was sessile. The polyp was removed with a cold snare. Resection and retrieval were complete. Estimated blood loss was minimal. Internal hemorrhoids were found during retroflexion. The hemorrhoids were mild. The exam was otherwise without abnormality. Impression: - One 6 mm polyp in the transverse colon, removed with a cold snare. Resected and retrieved. - Internal hemorrhoids. - The examination was otherwise normal. Recommendation: - Discharge patient to home (ambulatory). - Advance diet as tolerated today. - Await pathology results. - Repeat colonoscopy in 3 years because the bowel preparation was suboptimal. - Miralax 1 capful (17 grams) in 8 ounces of water PO daily. Keyanna Pantoja D.O. Keyanna Pantoja, 09/09/2016 2:20:25 PM This report has been signed electronically. Note Initiated On: 09/09/2016 1:51 PM I attest to the content of the Intraoperative Record and orders documented therein, exceptions below
--- NOTE | 2016-09-09 14:22 | Discharge Instructions ---
Endoscopy Patient Instructions Date / Procedure(s) Performed Sep 09, 2016. Colonoscopy Allergy Information Coded Allergies: Acetaminophen (Verified Allergy, Unknown, ?, 09/07/16) CAN TOLERATE SEPERATELY BUT NOT TOGETHER Atropine (Verified Allergy, Unknown, ?, 09/07/16) BEE STING (Verified Allergy, Unknown, SWELLING, 09/07/16) Cefaclor (Verified Allergy, Unknown, ?, 09/07/16) Codeine (Verified Allergy, Unknown, ?, 09/07/16) CAN TOLERATE SEPERATELY BUT NOT TOGETHER Dextromethorphan (Verified Allergy, Unknown, HALLUCINATION, 09/07/16) Diphenoxylate (Verified Allergy, Unknown, ?, 09/07/16) Doxylamine (Verified Allergy, Unknown, HALLUCINATION, 09/07/16) Ethanol (Verified Allergy, Unknown, HALLUCINATION, 09/07/16) Gold (Verified Allergy, Unknown, RASH, 09/07/16) Iodine (Verified Allergy, Unknown, "D/T ALLERGY TO SHRIMP", 09/07/16) Lidocaine (Verified Allergy, Unknown, LETHARGY, 09/07/16) Midazolam (Verified Allergy, Unknown, MUSCLE SPAMS AND HALLUCINATIONS, 03/14) Morphine (Verified Allergy, Unknown, SWELLING, 09/07/16) Penicillins (Verified Allergy, Unknown, ?, 09/07/16) Propantheline (Verified Allergy, Unknown, ?, 09/07/16) Propoxyphene (Verified Allergy, Unknown, SWELLING, 09/07/16) Pseudoephedrine (Verified Allergy, Unknown, HALLUCINATION, 09/07/16) Shellfish (Verified Allergy, Unknown, ?, 09/07/16) Shrimp (Verified Allergy, Unknown, THROAT SWELLS SHUT, 09/07/16) Succinylcholine (Verified Allergy, Unknown, TOLD NEVER TO USE, NEICE SEVERELY ALLERGIC TO MEDS, 09/07/16) Uncoded Allergies: DEMEROL (Allergy, Unknown, SWELLING, 06/23/16) STERI STRIPS (Allergy, Unknown, BLISTERS, 06/23/16) TALWIN (Allergy, Unknown, HIVES AND CONFUSION, 06/23/16) WALNUTS (Allergy, Unknown, SWELLING, 06/23/16) Discharge Date / Findings Sep 09, 2016. Internal hemorrhoids 1 colon polyp Medication Instructions Stopped Medication(s): coumadin Reported Home Medications Medications Dose Route/Sig Max Daily Dose Days Date Category Dose Instructions Coumadin (Warfarin Sod) 5 Mg Tab 5 Mg PO DAILY 09/07/16 Reported HOLDING PRIOR TO PROCEDURE Nystatin Suspension (Nystatin) 1 Ml Susp 1 Dose PO DAILY PRN 09/07/16 Reported Miralax (Polyethylene Glycol 3350) 1 Pow Pow 17 Gm PO DAILY PRN 09/07/16 Reported Toprol-Xl (Metoprolol Succinate) 100 Mg Tabcr 100 Mg PO QAM 09/07/16 Reported Levaquin (Levofloxacin) 500 Mg Tab 500 Mg PO DAILY PRN 7 09/07/16 Reported Amoxil (Amoxicillin) 500 Mg Cap 2,000 Mg PO UD 09/07/16 Reported ONE HOUR PRIOR TO DENTAL Benadryl Allergy (Diphenhydramine Hcl) 25 Mg Cap 1 Cap PO HS PRN 09/07/16 Reported Mag-Ox (Magnesium Oxide) 400 Mg Tab 400 Mg PO BID 07/01/16 Reported Vitamin D (Cholecalciferol) 2,000 Unit Tab 1 Tab PO QAM 06/23/16 Reported Ultram (Tramadol HCl) 50 Mg Tab 50 Mg PO Q6 PRN 04/18/16 Reported Zofran (Ondansetron HCl) 4 Mg Tab 4 Mg PO Q6H PRN 04/18/16 Reported Prilosec (Omeprazole) 40 Mg Capcr 40 Mg PO QAM 04/18/16 Reported Levothyroxine Sodium 112 Mcg Tab 112 Mcg PO QAM 90 04/18/16 Reported Folvite (Folic Acid) 1 Mg Tab 2 Mg PO QAM 04/18/16 Reported Lioresal (Baclofen) 10 Mg Tab 10 Mg PO TID PRN 04/18/16 Reported Fiorinal/Codeine #3 (Bzlytxmqvk-Ksyyuck-Hfrzkrnm W/) 1 Cap Cap 1 Cap PO Q6 PRN 07/05/14 Reported Lipitor (Atorvastatin Calcium) 80 Mg Tab 80 Mg PO HS 07/05/14 Reported Cozaar (Losartan Potassium) 25 Mg Tab 25 Mg PO QAM 07/05/14 Reported Lasix (Furosemide) 40 Mg Tab 40 Mg PO QAM 07/05/14 Reported Ecotrin Or Generic (Aspirin) 81 Mg Tab 81 Mg PO HS 04/09/14 Reported Advair Diskus 250/50 60 Dose (Fluticasone Prop/Salmeterol) 1 Ea Aerp 1 Puff INH BID 04/09/14 Reported Klor-Con (Potassium Chloride) 20 Meq Tabcr 20 Meq PO BID 04/09/14 Reported Colace (Docusate Sodium) 100 Mg Cap 100 Mg PO BID 02/21/14 Reported Combivent Respimat (Ipratropium-Albuterol) 1 Aer Aer 1 Puff INH QID PRN 06/12/13 Reported Nitrostat (Nitroglycerin) 0.4 Mg Tab 0.4 Mg UT UD PRN 10/07/[address] ONE TABLET UNDER THE TONGUE EVERY 5 MINUTES FOR UP TO 3 DOSES IF NEEDED FOR CHEST PAIN. Valium (Diazepam) 5 Mg Tab 5 Mg PO TID PRN 09/25/08 Reported Provider Instructions Activity Restrictions - No exercising or heavy lifting for 24 hours. - Do not drink alcohol the day of the procedure. - Do not drive a car or operate machinery until the day after the procedure. - Do not make any important decisions or sign important papers in 24 hours after the procedure. Following Day: - Return to full activity which may include returning to work/school. Diet Start your diet with liquids and light foods (jello, soup, juice, toast). Then eat your usual diet if not nauseated. Treatment For Common After Affects For mild abdominal pain, bloating, or excessive gas: - Rest - Eat lightly - Lie on right side Follow-Up Information Try Miralax 17 gm per day Repeat colonoscopy in 3 years for colon polyp surveillance Anesthesia Information What You Should Know You have had a procedure that required some medicine to reduce anxiety and discomfort. This treatment is called moderate sedation. After receiving the treatment, you may be sleepy, but you will be able to breathe on your own. The effects of the treatment may last for several hours. Follow these instructions along with Activity/Diet recommendations noted above: * Do NOT do anything where dizziness or clumsiness would be dangerous. * Rest quietly at home today, then you can be up and about tomorrow. * Have a responsible person stay with you the rest of today. * You may have had an I.V. today. If so, you may take the dressing off later today. Recommendations Call your doctor if: * Trouble breathing * Continuous vomiting for more than 24 hours * Temperature above 101 degrees * Severe abdominal pain or bloating * Pain not relieved by pain medicine ordered * There is increased drainage or redness from any incision * A large amount of rectal bleeding greater than 2-3 tablespoons. (If you had a polyp/s removed or have hemorrhoids, a small amount of blood - from the rectum is to be expected.) * You have any unanswered questions or concerns. IN THE EVENT OF A SERIOUS EMERGENCY, GO TO THE NEAREST EMERGENCY ROOM Your discharge instructions were prepared by provider Keyanna Pantoja. Patient Instructions Signature Page Litzy Preston Patient (or Guardian) Signature/Date: I have read and understand the instructions given to me by my caregivers. Caregiver/RN/Doctor Signature/Date: The above-named patient and/or guardian has received patient instructions on this date. + Original Patient Signature Page (only) stays with chart. Please make copy for patient.
--- NOTE | 2016-09-09 14:57 | Anesthesiology Progress Note ---
Anesthesia Post Op Note Date & Time Sep 09, 2016 at 14:57 Vital Signs Pain Intensity: 0 Vital Signs Past 12 Hours Date Time Temp Pulse Resp B/P (MAP) Pulse Ox O2 Delivery O2 Flow Rate FiO2 09/09/16 14:50 72 20 111/54 (73) 100 Room Air 09/09/16 14:40 73 20 92/56 (68) 100 Room Air 09/09/16 14:24 72 20 94/49 (64) 100 Room Air 09/09/16 13:35 36.8 85 20 118/49 (72) 99 Room Air Notes Mental Status: alert / awake / arousable, participated in evaluation Pt Amnestic to Procedure: Yes Nausea / Vomiting: adequately controlled Pain: adequately controlled Airway Patency, RR, SpO2: stable & adequate BP & HR: stable & adequate Hydration State: stable & adequate Anesthetic Complications: no major complications apparent
[2016-09-09 15:12] VITALS: BP 116/69; PULSE 74; O2SAT 99
== END | disposition home or self-care (01) ==
LOC: C.GI 12:48
PROVIDERS: ATTEND Internal Medicine Gastroenterology
DX: Z12.11 Encounter for screening for malignant neoplasm of colon (principal); D12.3 Benign neoplasm of transverse colon; K64.8 Other hemorrhoids; Z86.010 Personal history of colon polyps; E11.9 Type 2 diabetes mellitus without complications; M81.0 Age-related osteoporosis without current pathological fracture; J45.909 Unspecified asthma, uncomplicated; F41.9 Anxiety disorder, unspecified; K21.9 Gastro-esophageal reflux disease without esophagitis; I50.9 Heart failure, unspecified; I10 Essential (primary) hypertension; F17.200 Nicotine dependence, unspecified, uncomplicated; Z95.5 Presence of coronary angioplasty implant and graft; Z95.1 Presence of aortocoronary bypass graft

== ENCOUNTER → 2016-09-22 | Outpatient (CLI) | payer OTHER ==
[~2016-09-22] MED LIST changes: -BCTCR/30 EXT; -DOCU100C31 PO; -ENOX40IN SQ; -LIDOCAINE HCL 2% 2 ML VIAL (20MG/ML) ONE; -METO100T44 PO; +METO1TAB69 PO; -OMEP40CA41 PO; -ONDA4TAB65 PO; -ONDANSETRON INJ 2 MG/ML 2 ML VIAL IV PRN; -PHENYLEPHRINE 100MCG/ML 5ML SYR ONE; -PROPOFOL IV EMULSION 10 MG/ML 20 ML VIAL IV ONE; -RANI300T2 PO; -VNTHFA/IN INH; -WARF5TAB7 PO
--- NOTE | 2016-09-22 10:48 | DIAGNOSTIC IMAGING REPORT ---
CHEST 2 VIEWS ROUTINE CLINICAL HISTORY: Pleural effusion. COMPARISON STUDY: Chest CT April 22, 2016 and chest radiograph August 25, 2016. FINDINGS: There are median sternotomy wires and mediastinal surgical clips. Cardiomediastinal silhouette is normal. Calcified granulomas within the lungs are noted as well as calcified thoracic lymph nodes. There is no pneumothorax. A right pleural drain remains in place. Small bilateral pleural effusions, right larger left, are unchanged. Persistent right basilar opacity is unchanged. There is no evidence of pulmonary edema. IMPRESSION: No change in small bilateral pleural effusions. Electronically signed by: Nguyễn Thacker M.D. 09/22/2016 10:46 AM Dictated Date/Time: 09/22/2016 10:44 AM
== END | disposition home or self-care (01) ==
LOC: C.RAD 10:03
PROVIDERS: ATTEND Surgery
DX: J90 Pleural effusion, not elsewhere classified (principal)

== ENCOUNTER → 2016-09-22 | Outpatient (CLI) | payer OTHER ==
--- NOTE | 2016-09-23 13:06 | MAMMOGRAPHY REPORT ---
BILATERAL DIGITAL SCREENING MAMMOGRAM WITH CAD: 09/22/2016 CLINICAL HISTORY: Routine screening. TECHNIQUE: Bilateral CC, MLO and repeat left MLO views were obtained. Current study was also evaluat ed with a Computer Aided Detection (CAD) system. COMPARISON: Comparison is made to exams dated: 02/14/2015 mammogram, 07/23/2014 mammogram, 01/22/2014 mammogram, 05/16/2013 mammogram, 07/03/2010 mammogram, and 07/02/2009 mammogram - [facility] enter. BREAST COMPOSITION: There are scattered areas of fibroglandular density in both breasts. FINDINGS: There are 2 stable ribbon shaped metallic biopsy markers in the upper outer anterior right breast, at the site of prior biopsy proven papilloma and subsequent vacuum assisted biopsy. There is no residual mass near the biopsy clips as seen on the 2013 mammograms. There are scattered benign-a ppearing coarse calcifications in the breasts. No new suspicious mass, architectural distortion or c luster of microcalcifications is seen bilaterally. IMPRESSION: ACR BI-RADS CATEGORY 1: NEGATIVE There is no mammographic evidence of malignancy. A 1 year screening mammogram is recommended. The pa tient will receive written notification of the results. Approximately 10% of breast cancers are not detected with mammography. A negative mammographic report should not delay biopsy if a clinically suggestive mass is present. Stephanie Oliveira M.D. ay/:09/22/2016 15:35:53 Parts Department Supervisor: Sandra DORANTES(Sandra)(Shahab), [facility] letter sent: Normal 1/2 BI-RADS Code: ACR BI-RADS Category 1: Negative
== END | disposition home or self-care (01) ==
LOC: C.MAMM 14:54
PROVIDERS: ATTEND Internal Medicine
DX: Z12.31 Encounter for screening mammogram for malignant neoplasm of breast (principal)

== ENCOUNTER → 2016-10-06 | Outpatient (CLI) | payer OTHER ==
[~2016-10-06] MED LIST changes: +DOCU100C31 PO; +ENOX40IN SQ; +OMEP40CA41 PO; +WARF5TAB7 PO
[2016-10-06 18:26] LABS: BLOOD UREA NITROGEN 18 mg/dl (7-18); BUN/CREATININE RATIO 33.4 (10-20); CALCIUM 8.9 mg/dl (8.5-10.1); CARBON DIOXIDE 29 mmol/L (21-32); CHLORIDE 105 mmol/L (98-107); CREATININE 0.55 mg/dl (0.60-1.20); GLUCOSE 82 mg/dl (70-99); POTASSIUM 3.9 mmol/L (3.5-5.1); SODIUM 140 mmol/L (136-145)
== END | disposition home or self-care (01) ==
LOC: C.LABSPEC 17:23
PROVIDERS: ATTEND Internal Medicine
DX: J90 Pleural effusion, not elsewhere classified (principal); I50.9 Heart failure, unspecified

== ENCOUNTER → 2016-10-08 | Outpatient (CLI) | payer OTHER ==
[2016-10-08 16:19] LABS: MEAN CELL VOLUME 76.9 fL (80-100); MEAN CORPUSCULAR HEMOGLOBIN 23.6 pg (25-34); MEAN CORPUSCULAR HGB CONC 30.7 g/dl (32-36); MEAN PLATELET VOLUME 9.2 fL (7.4-10.4); PLATELET COUNT 394 K/uL (130-400); RED BLOOD COUNT 3.77 M/uL (4.2-5.4); WHITE BLOOD COUNT 6.95 K/uL (4.8-10.8)
[2016-10-08 16:30] LABS: FERRITIN 6.3 ng/ml (8.0-388.0)
== END | disposition home or self-care (01) ==
LOC: C.LABSPEC 16:01
PROVIDERS: ATTEND Internal Medicine
DX: J90 Pleural effusion, not elsewhere classified (principal)

== ENCOUNTER → 2016-10-20 | Outpatient (CLI) | payer OTHER ==
--- NOTE | 2016-10-20 11:23 | DIAGNOSTIC IMAGING REPORT ---
CHEST 2 VIEWS ROUTINE HISTORY: 66 years-old Female PLEURAL EFFUSION follow-up exam. COMPARISON: Chest radiograph 09/22/2016, chest CT 04/22/2016 TECHNIQUE: Frontal and lateral views of the chest FINDINGS: Cardiac silhouette is within normal limits. Prior median sternotomy. Prevascular mediastinal calcifications are again seen. No pneumothorax is identified. There are persistent coarse reticular perihilar and right lateral midlung opacities compatible scarring which are unchanged. Calcifications projected over the left lung apex correlating with supraclavicular soft tissue calcifications seen on comparison CT. Calcifications are seen about the right glenohumeral joint suggesting calcification tendinosis or calcific bursitis. Mildly loculated moderate-sized right pleural effusion is again seen with unchanged catheter projecting over the right lung base. Trace left pleural effusion is unchanged. Mild right basilar consolidation suggests atelectasis. There is atherosclerosis of the aorta. Surgical clips are seen within the abdomen. IMPRESSION: Stable appearance of loculated moderate sized right and trace left pleural effusions with stable positioning of right chest tube. The above report was generated using voice recognition software. It may contain grammatical, syntax or spelling errors. Electronically signed by: Bakari Sanchez M.D. 10/20/2016 11:22 AM Dictated Date/Time: 10/20/2016 11:18 AM
== END | disposition home or self-care (01) ==
LOC: C.RAD 10:40
PROVIDERS: ATTEND Surgery
DX: J90 Pleural effusion, not elsewhere classified (principal)

== ENCOUNTER → 2016-11-20 | Outpatient (CLI) | payer OTHER ==
[2016-11-20 16:49] LABS: BASO % 0.4 %; BASO ABS # 0.05 K/uL (0-0.2); EOS % 0.7 %; HEMATOCRIT 38.4 % (37-47); IG% 0.3 %; LYMPH % 9.5 %; LYMPH ABS # 1.08 K/uL (1.2-3.4); MEAN CELL VOLUME 88.5 fL (80-100); MEAN CORPUSCULAR HGB CONC 32.8 g/dl (32-36); MEAN PLATELET VOLUME 10.5 fL (7.4-10.4); MONO % 7.9 %; NEUT % 81.2 %; PLATELET COUNT 295 K/uL (130-400); RED BLOOD COUNT 4.34 M/uL (4.2-5.4); WHITE BLOOD COUNT 11.35 K/uL (4.8-10.8)
[2016-11-20 16:59] LABS: ALT/SGPT 27 U/L (12-78); AST/SGOT 28 U/L (15-37); BLOOD UREA NITROGEN 11 mg/dl (7-18); BUN/CREATININE RATIO 19.8 (10-20); CARBON DIOXIDE 29 mmol/L (21-32); CHLORIDE 100 mmol/L (98-107); CREATININE 0.56 mg/dl (0.60-1.20); GLUCOSE 149 mg/dl (70-99); MAGNESIUM 1.9 mg/dl (1.8-2.4); POTASSIUM 3.7 mmol/L (3.5-5.1); SODIUM 136 mmol/L (136-145)
[2016-11-20 17:03] LABS: ALB/GLOB RATIO 0.7 (0.9-2); ALKALINE PHOSPHATASE 107 U/L (45-117); FERRITIN 67.3 ng/ml (8.0-388.0); TOTAL IRON BINDING CAPACITY 266 mcg/dl (250-450)
[2016-11-20 18:59] LABS: COMPLETE YES; ECHINOCYTES 1+
[2016-11-21 08:11] LABS: ESTIMATED AVERAGE GLUCOSE 117 mg/dl; HA1C FLAG Normal (Normal)
== END | disposition home or self-care (01) ==
LOC: C.LABBFT 13:18
PROVIDERS: ATTEND Internal Medicine
DX: D64.9 Anemia, unspecified (principal); E11.9 Type 2 diabetes mellitus without complications; M85.80 Other specified disorders of bone density and structure, unspecified site; I48.91 Unspecified atrial fibrillation

== ENCOUNTER 2016-11-21 14:36 | Inpatient (IN) | payer OTHER ==
[~2016-11-21] VITALS: Ht 154.9 cm; Wt 58.9 kg
[~2016-11-21 14:36] MED LIST changes: -DOCU100C31 PO; -ENOX40IN SQ; -OMEP40CA41 PO; -WARF5TAB7 PO
--- NOTE | 2016-11-21 15:12 | EMERGENCY ROOM VISIT NOTE ---
History Report prepared by Jose: Irasema Sanchez Under the Supervision of: Dr. Ted Levy M.D. First contact with patient: 14:57 Chief Complaint: SHORTNESS OF BREATH Stated Complaint: BLOOD IN PLUREX DRAINAGE History of Present Illness The patient is a 66 year old female who presents to the Emergency Room with complaints of shortness of breath beginning 4 days ago. The patient states that she has a chronic cough, and that she has recently had a productive cough with thick, green mucous, and was placed on Levaquin for 2 days. She denies having any fevers. The patient also reports having chest pain yesterday. The patient has been using a Pleurex drainage system since March, and that she has had blood in her Pleurex drainage. The patient has a bottle with 2 days worth of drainage that has blood in it. She also uses Advair twice per day at home. 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 The patient states that she is diabetic but has been maintaining a healthy diet. She denies recent travel or injuries. Source of History: patient Onset: 4 days ago Position: other (global) Quality: other (shortness of breath ) Associated Symptoms: + cough (productive), + chest pain, No fevers Review of Systems See HPI for pertinent positives & negatives. A total of 10 systems reviewed and were otherwise negative. Past Medical & Surgical Medical Problems: (1) Acute myocardial infarction (2) chest pain, right pleural effusion (3) Coagulopathy (4) Diab Ene Wo Compl, Type Ii Or Unspec Type, Not Uncntrld (5) Hx-Hodgkin's Disease (6) Hypertension Nos (7) Pulmonary emboli (8) Pulmonary hemorrhage (9) Upper GI bleed Surgical Problems: (1) Hx of cholecystectomy (2) Hx of heart artery stent (3) Hx of splenectomy Old medical records were reviewed. Nurse's notes were reviewed and I agree with. Family History Cancer Diabetes mellitus Social History Smoking Status: Current Every Day Smoker Drug Use: none Marital Status: Housing Status: lives with family Occupation Status: employed Current/Historical Medications Scheduled Amoxicillin (Amoxil), 2,000 MG PO UD Aspirin Enteric Coated (Ecotrin Or Generic), 81 MG PO HS Atorvastatin (Lipitor), 80 MG PO HS Cholecalciferol (Vitamin D), 1 TAB PO QAM Docusate Sodium (Docusate Sodium), 1 CAP PO TID Fluticasone Prop/Salmeterol (Advair Diskus 250/50 60 Dose), 1 PUFF INH BID Folic Acid (Folvite), 2 MG PO QAM Furosemide (Lasix), 40 MG PO QAM Levothyroxine Sodium (Levothyroxine Sodium), 112 MCG PO QAM Losartan Potassium (Cozaar), 25 MG PO QAM Magnesium Oxide (Mag-Ox), 400 MG PO BID Metoprolol Succ (Toprol Xl) (Toprol-Xl ), 100 MG PO QAM Omeprazole (Prilosec), 40 MG PO DAILY Potassium Ext Rel (Klor-Con), 20 MEQ PO BID Warfarin Sod (Coumadin), 5 MG PO UD Warfarin Sod (Jantoven), 7.5 MG PO UD Scheduled PRN Baclofen (Lioresal), 10 MG PO BID PRN for Muscle Spasms Pomzvdwhzl-Xgfvqtl-Aaiwyaoz W/ (Fiorinal/Codeine #3), 1 CAP PO Q6 PRN for Headache Diazepam (Valium), 5 MG PO TID PRN for Anxiety Diphenhydramine Hcl (Benadryl Allergy), 1 CAP PO HS PRN for PRN Ipratropium-Albuterol (Combivent Respimat), 1 PUFF INH QID PRN for Shortness of Breath Levofloxacin (Levaquin), 500 MG PO DAILY PRN for SINUS INFECTION Nitroglycerin (Nitrostat), 0.4 MG UT UD PRN for Chest Pain Nystatin (Nystatin Suspension), 1 DOSE PO DAILY PRN for PRN Ondansetron Hcl (Zofran), 4 MG PO Q6H PRN for Nausea Polyethylene Glycol 3350 (Miralax), 17 GM PO DAILY PRN for CONSTIPATION Tramadol (Ultram), 50 MG PO Q6 PRN for Pain Allergies Coded Allergies: Meperidine (Verified Allergy, Intermediate, SWELLING, 11/21/16) Acetaminophen (Verified Allergy, Unknown, ?, 11/21/16) CAN TOLERATE SEPERATELY BUT NOT TOGETHER Atropine (Verified Allergy, Unknown, ?, 11/21/16) BEE STING (Verified Allergy, Unknown, SWELLING, 11/21/16) Cefaclor (Verified Allergy, Unknown, ?, 11/21/16) Codeine (Verified Allergy, Unknown, ?, 11/21/16) CAN TOLERATE SEPERATELY BUT NOT TOGETHER Dextromethorphan (Verified Allergy, Unknown, HALLUCINATION, 11/21/16) Diphenoxylate (Verified Allergy, Unknown, ?, 11/21/16) Doxylamine (Verified Allergy, Unknown, HALLUCINATION, 11/21/16) Ethanol (Verified Allergy, Unknown, HALLUCINATION, 11/21/16) Gold (Verified Allergy, Unknown, RASH, 11/21/16) Iodine (Verified Allergy, Unknown, "D/T ALLERGY TO SHRIMP", 11/21/16) Lidocaine (Verified Allergy, Unknown, LETHARGY, 11/21/16) Midazolam (Verified Allergy, Unknown, MUSCLE SPAMS AND HALLUCINATIONS, ) Morphine (Verified Allergy, Unknown, SWELLING, 11/21/16) Penicillins (Verified Allergy, Unknown, ?, 11/21/16) Propantheline (Verified Allergy, Unknown, ?, 11/21/16) Propoxyphene (Verified Allergy, Unknown, SWELLING, 11/21/16) Pseudoephedrine (Verified Allergy, Unknown, HALLUCINATION, 11/21/16) Shellfish (Verified Allergy, Unknown, ?, 11/21/16) Shrimp (Verified Allergy, Unknown, THROAT SWELLS SHUT, 11/21/16) Succinylcholine (Verified Allergy, Unknown, TOLD NEVER TO USE, NEICE SEVERELY ALLERGIC TO MEDS, 11/21/16) Adhesives (Verified Adverse Reaction, Mild, Steri-strip - blisters, ) Uncoded Allergies: TALWIN (Allergy, Unknown, HIVES AND CONFUSION, 06/23/16) WALNUTS (Allergy, Unknown, SWELLING, 06/23/16) Physical Exam Vital Signs Date Time Temp Pulse Resp B/P (MAP) Pulse Ox O2 Delivery O2 Flow Rate FiO2 11/21/16 16:28 95 20 123/65 99 Room Air 11/21/16 15:08 99 11/21/16 15:00 98 Room Air 11/21/16 15:00 98 Room Air 11/21/16 14:40 36.8 105 16 107/49 98 Room Air Physical Exam General: Well developed well nourished ill middle aged female in no acute distress, breathing comfortably on room air. Normal speech HEENT: Normal cephalic atraumatic. Pupils are equal round and reactive to light. Extraocular movements are intact. Oropharynx is pink with moist mucous membranes. No swelling of the mouth lips or tongue. Neck: Supple with a midline trachea. No meningeal signs or stiffness, no JVD or bruits. No Stridor. Chest: Clear to auscultation bilaterally. No wheezes or rhonchi. No increased work of breathing. Heart: mildly tachycardic, but regular rhythm. Pleurex drain in right chest. Abdomen: Soft nontender, nondistended without rebound guarding or rigidity. Extremities: No cyanosis clubbing or edema. No calf tenderness or assymetry Spine/Back. Non tender to palpation. No CVA tenderness Skin: Good turgor without rashes. Neurologic exam: Cranial nerves two through 12 are intact. Motor and sensation are intact and symmetrical throughout. Medical Decision & Procedures ER Provider Diagnostic Interpretation: X-ray results as stated below per interpretation by me and the radiologist: CHEST ONE VIEW PORTABLE CLINICAL HISTORY: 66 years-old Female presenting with CHEST PAIN. TECHNIQUE: Portable upright AP view of the chest was obtained. COMPARISON: 10/20/2016. FINDINGS: Median sternotomy wires extensive abdominal surgical clips unchanged. Atherosclerosis of the aortic arch. Multifocal coarse calcifications noted in the lungs. Cardiac silhouette normal in size. Chronic scarring at the right lung base suggested. Persistent blunting of the bilateral costophrenic angles may suggest effusions or pleural thickening. No new focal infiltrate. Osseous structures normal. Upper abdomen normal. IMPRESSION: 1. Chronic scarring at the right lung base with associated small pleural effusion or pleural thickening. 2. Suspected trace left pleural effusion or pleural thickening. 3. No new infiltrate. Electronically signed by: Nathan Pérez M.D. 11/21/2016 4:00 PM Dictated Date/Time: 11/21/2016 3:58 PM Laboratory Results 11/21/16 15:19 Red Blood Count 4.26, Mean Corpuscular Volume 87.8, Mean Corpuscular Hemoglobin 28.4, Mean Corpuscular Hemoglobin Concent 32.4, Mean Platelet Volume 9.3, Neutrophils (%) (Auto) 75.3, Lymphocytes (%) (Auto) 14.3, Monocytes (%) (Auto) 8.5, Eosinophils (%) (Auto) 1.1, Basophils (%) (Auto) 0.5, Neutrophils # (Auto) 7.30, Lymphocytes # (Auto) 1.39, Monocytes # (Auto) 0.83, Eosinophils # (Auto) 0.11, Basophils # (Auto) 0.05 11/21/16 15:19 Test 11/21/16 15:19 11/21/16 15:22 White Blood Count 9.71 K/uL (4.8-10.8) Red Blood Count 4.26 M/uL (4.2-5.4) Hemoglobin 12.1 g/dL (12.0-16.0) Hematocrit 37.4 % (37-47) Mean Corpuscular Volume 87.8 fL (80-100) Mean Corpuscular Hemoglobin 28.4 pg (25-34) Mean Corpuscular Hemoglobin Concent 32.4 g/dl (32-36) Platelet Count 324 K/uL (130-400) Mean Platelet Volume 9.3 fL (7.4-10.4) Neutrophils (%) (Auto) 75.3 % Lymphocytes (%) (Auto) 14.3 % Monocytes (%) (Auto) 8.5 % Eosinophils (%) (Auto) 1.1 % Basophils (%) (Auto) 0.5 % Neutrophils # (Auto) 7.30 K/uL (1.4-6.5) Lymphocytes # (Auto) 1.39 K/uL (1.2-3.4) Monocytes # (Auto) 0.83 K/uL (0.11-0.59) Eosinophils # (Auto) 0.11 K/uL (0-0.5) Basophils # (Auto) 0.05 K/uL (0-0.2) Immature Granulocyte % (Auto) 0.3 % Immature Granulocyte # (Auto) 0.03 K/uL (0.00-0.02) Hypochromasia PRESENT Anisocytosis PRESENT [place] Bodies OCCASIONAL Prothrombin Time 83.6 SECONDS (9.0-12.0) Prothromb Time International Ratio 7.2 (0.9-1.1) Activated Partial Thromboplast Time 54.6 SECONDS (21.0-31.0) Partial Thromboplastin Ratio 2.1 Anion Gap 7.0 mmol/L (3-11) Est Creatinine Clear Calc Drug Dose 77.1 ml/min Estimated GFR () 110.9 Estimated GFR (Non- 95.7 BUN/Creatinine Ratio 17.8 (10-20) Calcium Level 8.7 mg/dl (8.5-10.1) Pro-B-Type Natriuretic Peptide 1434 pg/ml (0-900) Bedside Troponin I < 0.030 ng/ml (0-0.045) Laboratory studies as stated above per my review. ECG Indication: SOB/dyspnea Rate (beats per minute): 100 Rhythm: sinus tachycardia Findings: 1st degree AV block, LBBB Change: no significant change (compared to April 19, 2016) ED Course 1500: Past medical records reviewed. The patient was evaluated in room B3, and a complete history and physical examination were performed. 1641: Discussed the patient's case with Dr. Hernandez. The patient will be evaluated for further management. 1642: The patient appears comfortable. 1700: Upon reevaluation, the patient is resting comfortably. I discussed the results and treatment plan with the patient. She verbalized agreement of the treatment plan. The patient will be evaluated for further management by Dr. Hernandez. Medical Decision Differentials include, but are not limited to; pneumonia, congestive heart failure, pleural effusion, infection, anemia, electrolyte metabolic abnormality. This patient comes in as described above. She has a very complex medical history. She is on chronic anticoagulation as she has had blood clots as well as A. fib and heart valve surgeries. She has a chronic back strain. He has had increasingly blood sugar INR checked yesterday was elevated. She had no fall or trauma. She has had increasing cough and shortness of breath . She's had no fever or chills. She looks well on exam. She's not hypoxemic. IV access established and blood work was obtained. Chest x-ray and EKG were also obtained. Her EKG does not suggest acute coronary syndrome or arrhythmia. Chest x-ray does not show any new infiltrates she is some chronic changes in the right base. She has anemia in the 9 range which is slightly down from yesterday. Her INR was found to be significant elevated it's 7.2 which is up from yesterday. She has multiple reasons for anticoagulation which include PE/ DVT history, A. fib, heart valve surgery although not mechanical. I do think she needs some reversal as she has a bloody pleural effusion. I do think she needs to be admitted to the hospital and I do feel she meets admission criteria due to her anemia and significantly elevated INR and active blood in her pleural effusion. I have consulted the [facility] hospitalist and she was seen in the ER for these measures. Medication Reconcilliation Current Medication List: was personally reviewed by me Blood Pressure Screening Patient's blood pressure: Normal blood pressure Consults Time Called: 1630 Consulting Physician: Dr. Hernandez- [facility] Returned Call: 1641 Discussed the patient's case. The patient will be evaluated for further management. Impression Primary Impression: Pleural effusion Additional Impressions: Supratherapeutic INR Anemia Scribe Attestation The scribe's documentation has been prepared under my direction and personally reviewed by me in its entirety. I confirm that the note above accurately reflects all work, treatment, procedures, and medical decision making performed by me. Departure Information Dispostion Being Evaluated By Hospitalist Referrals Saulo Arthur M.D. (PCP) Patient Instructions My [facility] Health Problem Qualifiers
[2016-11-21] MEDS ORDERED: DOCU100C31 PO (15:15)
[2016-11-21] MEDS ORDERED: OMEP40CA41 PO (15:20)
[2016-11-21] MEDS ORDERED: WARF5TAB7 PO (15:25)
[2016-11-21 15:32] LABS: BASO % 0.5 %; BASO ABS # 0.05 K/uL (0-0.2); EOS % 1.1 %; HEMATOCRIT 37.4 % (37-47); IG% 0.3 %; LYMPH % 14.3 %; LYMPH ABS # 1.39 K/uL (1.2-3.4); MEAN CELL VOLUME 87.8 fL (80-100); MEAN CORPUSCULAR HEMOGLOBIN 28.4 pg (25-34); MEAN CORPUSCULAR HGB CONC 32.4 g/dl (32-36); MEAN PLATELET VOLUME 9.3 fL (7.4-10.4); MONO % 8.5 %; NEUT % 75.3 %; PLATELET COUNT 324 K/uL (130-400); RED BLOOD COUNT 4.26 M/uL (4.2-5.4); WHITE BLOOD COUNT 9.71 K/uL (4.8-10.8)
[2016-11-21 15:45] LABS: BUN/CREATININE RATIO 17.8 (10-20); CALCIUM 8.7 mg/dl (8.5-10.1); CREATININE 0.6 mg/dl (0.60-1.20); POTASSIUM 3.4 mmol/L (3.5-5.1)
[2016-11-21 15:49] LABS: PARTIAL THROMBOPLASTIN RATIO 2.1; PROTHROMBIN TIME (PATIENT) 83.6 SECONDS (9.0-12.0)
--- NOTE | 2016-11-21 16:01 | DIAGNOSTIC IMAGING REPORT ---
CHEST ONE VIEW PORTABLE CLINICAL HISTORY: 66 years-old Female presenting with CHEST PAIN. TECHNIQUE: Portable upright AP view of the chest was obtained. COMPARISON: 10/20/2016. FINDINGS: Median sternotomy wires extensive abdominal surgical clips unchanged. Atherosclerosis of the aortic arch. Multifocal coarse calcifications noted in the lungs. Cardiac silhouette normal in size. Chronic scarring at the right lung base suggested. Persistent blunting of the bilateral costophrenic angles may suggest effusions or pleural thickening. No new focal infiltrate. Osseous structures normal. Upper abdomen normal. IMPRESSION: 1. Chronic scarring at the right lung base with associated small pleural effusion or pleural thickening. 2. Suspected trace left pleural effusion or pleural thickening. 3. No new infiltrate. Electronically signed by: Nathan Pérez M.D. 11/21/2016 4:00 PM Dictated Date/Time: 11/21/2016 3:58 PM
[2016-11-21 16:02] LABS: INR 7.2 (0.9-1.1)
[2016-11-21 16:05] LABS: ANISOCYTOSIS PRESENT; COMPLETE YES; HOWELL-JOLLY BODIES OCCASIONAL; HYPOCHROMIA PRESENT
[2016-11-21] MEDS ORDERED: POLYETHYLENE (MIRALAX) 17 GM PACK PO PRN (17:00)
[2016-11-21] MEDS ORDERED: IPRATROPIUM BROMIDE/ALBUTEROL respimat INH INH PRN (17:00)
[2016-11-21] MEDS ORDERED: NITROGLYCERIN 0.4 MG SL PER TAB CHARGE UT PRN (17:00)
[2016-11-21] MEDS ORDERED: ONDANSETRON 4 MG TAB PO PRN (17:00)
[2016-11-21] MEDS ORDERED: NYSTATIN SUSP 500,000 U/5 ML UDC PO PRN (17:00)
[2016-11-21] MEDS ORDERED: TRAMADOL HCL 50 MG TAB PO PRN (17:00)
[2016-11-21] MEDS ORDERED: BUTALBITAL/ASA/CAFFEINE/COD 50/325/40/30 MG CAP PO PRN (17:00)
[2016-11-21] MEDS ORDERED: AMOXICILLIN 500 MG CAP PO SCH (17:00)
[2016-11-21] MEDS ORDERED: DIAZEPAM 5MG TAB PO PRN (17:00)
[2016-11-21] MEDS ORDERED: POTASSIUM CHLORIDE 10 MEQ TABCR PO STA (17:12)
--- NOTE | 2016-11-21 17:13 | History and Physical ---
History & Physical Date of Service Nov 21, 2016. History & Physical admit #[id number]
--- NOTE | 2016-11-21 17:58 | HISTORY & PHYSICAL EXAMINATION ---
DATE OF ADMISSION: 11/21/2016 CHIEF COMPLAINT: Blood from her PleurX catheter. HISTORY OF PRESENT ILLNESS: The patient is a very pleasant 66-year-old female, who has had a PleurX catheter in for about 6-7 months. She is following actively with Dr. Steele and she does have ongoing drainage from it. He has discussed more of a surgical approach, but so far, she has been feeling good with it and has been opting to forgo further surgery and prefers to continue in this respect. Due to an ongoing right pleural effusion, probably at least in due in part to radiation of her chest. At any rate, she was started on Levaquin just a couple of days ago for sinusitis and unfortunately then this morning whenever she had a PleurX drained, it was nearly gross blood. She then was sent to the ER for further evaluation. She does not have pain, lightheadedness, weakness, or dizziness. She does not have new shortness of breath. She does have a little bit of a cough earlier, although she notes it is clearing as the day goes on. She does not have edema. REVIEW OF SYSTEMS: Otherwise negative except for as above. PAST MEDICAL HISTORY: Includes DVT and PE, but she believes the most recent of those was in 2013. She has valvular heart disease, status post 2 valves, but both are tissue. Atrial fibrillation on Coumadin, asthma, anxiety, carotid artery disease, anemia, allergic rhinitis, coronary artery disease, COPD, diastolic CHF, depression, diabetes, GERD, hypertension, hyperlipidemia, hypothyroidism, osteopenia, chronic pleural effusion and vitamin D deficiency. HOME MEDICATIONS: Advair 250/50 one puff b.i.d., albuterol q.i.d. p.r.n. cough or wheeze, amoxicillin 2 grams prior to dental procedures, aspirin 81 mg daily, Lipitor 80 mg daily, baclofen 10 mg b.i.d., Colace 100 mg b.i.d., Combivent q.i.d. p.r.n., diazepam 5 mg t.i.d. p.r.n., iron sulfate 325 t.i.d., Fiorinal with codeine #3 q. 6 hours p.r.n. headache, folate 2 mg daily, Lasix 80 mg daily, Levaquin just started 500 mg daily in last 2 days she believes, Synthroid 112 mcg daily, losartan 25 mg daily, melatonin 3 mg at bedtime, metoprolol succinate 100 mg daily, MiraLax 17 grams every other day p.r.n. constipation, nitroglycerin 0.4 under the tongue p.r.n. chest pain, nystatin p.r.n. thrush, Prilosec 40 mg daily, ondansetron 4 mg q. 6 hours p.r.n., potassium 20 mEq b.i.d., Zantac 150 mg at bedtime, tramadol 50 mg q. 6 hours p.r.n. pain, and vitamin D 1000 international units daily. PAST SURGICAL HISTORY: Aortic valve replacement, breast biopsy, liver biopsy, CABG, catheter ablation, cholecystectomy, EGD, D&C, ERCP with removal of stone, hernia repair, PleurX catheter insertion, mitral valve replacement, dental extractions, splenectomy, laparotomy, and thoracenteses. VACCINES: She last had a tetanus shot in October of 2009, pneumonia in March of 2014 and she gets a flu shot annually. FAMILY HISTORY: Includes cancer and diabetes. SOCIAL HISTORY: She is not a smoker. No significant alcohol. She is . ALLERGIES: NUMEROUS. SHE NOTES THE MOST SERIOUS REACTIONS CAUSING EITHER HIVES, SWELLING OR DIFFICULTY BREATHING ARE MORPHINE, DEMEROL, DARVON, VERSED, CECLOR, CEPHALEXIN, IODINE, BETADINE, LOMOTIL, PENICILLIN. SHE HAS LESS SEVERE ADVERSE REACTIONS TO TYLENOL #3, STERI-STRIPS, XYLOCAINE, BEE STINGS, SHELLFISH, SHRIMP, CRAB, LOBSTER WALNUTS, NYQUIL AND YELLOW GOLD JEWELRY. PHYSICAL EXAMINATION: VITAL SIGNS: Temperature 36.8, pulse 105, respiratory rate 16, blood pressure 107/49, and 98% on room air. GENERAL: She is awake, alert, and oriented x3, pleasant, in no acute distress. HEENT: Normocephalic and atraumatic. Mucous membranes are moist. CARDIOVASCULAR: Regular to maybe slightly irregular, slightly tachycardic, distant. She does have a murmur. LUNGS: Actually clear to auscultation bilaterally. She notes that she was told she was wheezing earlier. There are no rales, rhonchi, or wheezes. Good effort. ABDOMEN: Soft, nondistended, and nontender. No masses or organomegaly. EXTREMITIES: Without cyanosis, clubbing or edema. SKIN: Shows no significant rashes, pallor or icterus. She has a few punctate lesions on her left calf and ankle, she relates to a new pair of socks. MENTAL STATE: Shows good recent and remote recall. Normal mood and affect. Good judgment and insight. MUSCULOSKELETAL: Yields no gross lesions. LABS AND DIAGNOSTICS: CBC shows a white count of 9.71, hemoglobin 12.1, and platelets 324. Basic metabolic panel with sodium 137, potassium 3.4, chloride 100, CO2 of 30, BUN 11, creatinine 0.6, calcium 8.7, and glucose 156. Troponin of less than 0.030. Calcium 8.7. BNP 1434. Her PT is 83.6 with an INR of 7.2 and PTT 54.6. Chest x-ray shows median sternotomy wires, extensive abdominal surgical clips unchanged from previous, atherosclerosis of the aortic arch, multifocal coarse calcifications noted in the lungs. Cardiac silhouette normal in size, chronic scarring at the right lung base suggested. Persistent blunting of the bilateral costophrenic angles may suggest effusions or pleural thickening, no focal infiltrate. Osseous structures normal. Upper abdomen normal. ASSESSMENT AND PLAN: 1. Pulmonary bleeding with supratherapeutic INR. Certainly with an extremely risky situation given that her INR is markedly elevated, she has her PleurX draining blood. She is slightly tachycardic. Fortunately, not anemic. Her blood pressures are reasonable. We will watch her closely, give her vitamin K to reverse her Coumadin and follow her hemoglobin. Hopefully, this will turn around quickly. If not, we may need to enlist thoracic surgery. 2. Coumadin coagulopathy. This is likely due to the interaction with Levaquin. For now, we will hold her Coumadin and give her 5 vitamin K. Fortunately, at this point in time, her main active anticoagulation issue is her atrial fibrillation. So it is low risk, should she get a little bit subtherapeutic. 3. Atrial fibrillation. Continue her home meds except for holding the Coumadin as above. Follow her INR closely. 4. Sinusitis. Continue Levaquin for now appears needed and then we can just get her back on her regular Coumadin, although obviously that will need to be monitored closely while she is on the Levaquin. 5. Coronary artery disease. Clinically, she appears to be stable. Continue her home meds. 6. Deep venous thrombosis prophylaxis. Currently, she is supratherapeutic. She does have prior history of deep venous thromboses, but she relates the last was in about 2013. 7. Valvular heart disease with cardiomyopathy. She is currently compensated without signs or symptoms of active congestive heart failure. 8. Mild hypokalemia, replete. MTDD
[2016-11-21] MEDS ORDERED: PHYTONADIONE 5 MG TAB PO STA (18:13)
[2016-11-21 18:18] VITALS: BP 112/60; PULSE 98; TEMP 36.8; O2SAT 98
--- NOTE | 2016-11-21 20:17 | Progress Note ---
Progress Note Date of Service Nov 21, 2016. Progress Note given pleurX in place and supratherapeutic INR bleeding most likely related to that. further w/u for other etiologies as outpt w f/u w Dr Steele unless bleeding persists
[2016-11-21 20:18] VITALS: BP 112/60; PULSE 98; TEMP 36.8; Ht 154.9 cm; Wt 58.9 kg
[2016-11-21 21:00] VITALS: O2SAT 98
[2016-11-21] MEDS: FLUTICASONE/SALMETEROL 250/50 (ADVAIR) 14 PUFF/1 INHALER INH SCH (21:22)
[2016-11-21] MEDS: DOCUSATE SODIUM 100 MG CAP PO SCH (21:23)
[2016-11-21] MEDS: POTASSIUM CHLORIDE 20 MEQ TABCR PO SCH (21:24)
[2016-11-21] MEDS: ASPIRIN 81 MG ECTAB PO SCH (21:24)
[2016-11-21] MEDS: MAGNESIUM OXIDE 400 MG TAB PO SCH (21:25)
[2016-11-21] MEDS: ATORVASTATIN 20 MG TAB PO SCH (21:26)
[2016-11-21] MEDS: BACLOFEN 10 MG TAB PO PRN (21:26)
[2016-11-21 23:05] VITALS: BP 97/58; PULSE 93; TEMP 36.8; O2SAT 96
[2016-11-22] MEDS: LEVOTHYROXINE 112 MCG TAB PO SCH (06:43)
[2016-11-22 07:47] VITALS: BP 105/57; PULSE 87; TEMP 36.8; O2SAT 96
[2016-11-22 08:33] LABS: BASO % 0.5 %; BASO ABS # 0.04 K/uL (0-0.2); HEMATOCRIT 37.8 % (37-47); IG% 0.2 %; LYMPH % 16.6 %; LYMPH ABS # 1.42 K/uL (1.2-3.4); MEAN CELL VOLUME 88.3 fL (80-100); MEAN CORPUSCULAR HEMOGLOBIN 28.5 pg (25-34); MEAN CORPUSCULAR HGB CONC 32.3 g/dl (32-36); MEAN PLATELET VOLUME 9.8 fL (7.4-10.4); MONO % 12.2 %; NEUT % 68.5 %; PLATELET COUNT 347 K/uL (130-400); RED BLOOD COUNT 4.28 M/uL (4.2-5.4); WHITE BLOOD COUNT 8.53 K/uL (4.8-10.8)
[2016-11-22] MEDS: FLUTICASONE/SALMETEROL 250/50 (ADVAIR) 14 PUFF/1 INHALER INH SCH ×2 (08:38→20:08)
[2016-11-22] MEDS: DOCUSATE SODIUM 100 MG CAP PO SCH ×3 (08:38→20:08)
[2016-11-22] MEDS: CHOLECALCIFEROL 1000 INTER.UNIT TAB PO SCH (08:39)
[2016-11-22] MEDS: MAGNESIUM OXIDE 400 MG TAB PO SCH ×2 (08:39→20:10)
[2016-11-22] MEDS: PANTOprazole SOD 40 MG TAB PO SCH (08:39)
[2016-11-22] MEDS: LOSARTAN POTASSIUM 25 MG TAB PO SCH (08:39)
[2016-11-22] MEDS: POTASSIUM CHLORIDE 20 MEQ TABCR PO SCH ×2 (08:39→20:13)
[2016-11-22] MEDS: FUROSEMIDE 40 MG TAB PO SCH (08:39)
[2016-11-22] MEDS: METOPROLOL SUCC 50MG EXT REL TAB PO SCH (08:40)
[2016-11-22 08:43] LABS: INR 3.1 (0.9-1.1); PROTHROMBIN TIME (PATIENT) 34.7 SECONDS (9.0-12.0)
[2016-11-22 09:04] LABS: ANISOCYTOSIS PRESENT; COMPLETE YES; HOWELL-JOLLY BODIES 1+; POIKILOCYTOSIS PRESENT; TARGET CELLS 1+
[2016-11-22 09:15] LABS: BUN/CREATININE RATIO 19.2 (10-20); CALCIUM 9.2 mg/dl (8.5-10.1); CREATININE 0.53 mg/dl (0.60-1.20); POTASSIUM 4.7 mmol/L (3.5-5.1)
[2016-11-22] MEDS: LEVOFLOXACIN 500 MG TAB PO SCH (12:02)
[2016-11-22] MEDS: BACLOFEN 10 MG TAB PO PRN ×2 (14:37→20:18)
[2016-11-22 16:10] VITALS: BP 92/53; PULSE 85; TEMP 36.8; O2SAT 97
[2016-11-22] MEDS: ASPIRIN 81 MG ECTAB PO SCH (20:08)
[2016-11-22] MEDS: ATORVASTATIN 20 MG TAB PO SCH (20:09)
[2016-11-22 23:46] VITALS: BP 110/63; PULSE 88; TEMP 37.2; O2SAT 97
--- NOTE | 2016-11-23 01:33 | Hospitalist Progress Note ---
Hospitalist Progress Note Date of Service Nov 22, 2016. Subjective Patient with no complaints no further bleeding Medications _ Medications (Trade) Dose Ordered Sig/Keon Route Start Time Stop Time Status Last Admin Dose Admin Folic Acid (Folvite Tab) 2 mg QAM PO 11/22/16 09:00 12/22/16 08:59 11/22/16 08:38 2 MG Furosemide (Lasix Tab) 40 mg QAM PO 11/22/16 09:00 12/22/16 08:59 11/22/16 08:39 40 MG Levofloxacin (Levaquin Tab) 500 mg DAILY@1100 PO 11/22/16 11:00 12/02/16 10:59 11/22/16 12:02 500 MG Levothyroxine Sodium (Synthroid Tab) 112 mcg DAILYBB PO 11/22/16 06:30 12/22/16 06:29 11/22/16 06:43 112 MCG Losartan Potassium (coZAAR TAB) 25 mg QAM PO 11/22/16 09:00 12/22/16 08:59 11/22/16 08:39 25 MG Metoprolol Succinate (Toprol Xl Tab) 100 mg QAM PO 11/22/16 09:00 12/22/16 08:59 11/22/16 08:40 100 MG Cholecalciferol (Vitamin D Tab) 2,000 inter.unit QAM PO 11/22/16 09:00 12/22/16 08:59 11/22/16 08:39 2,000 INTER.UNIT Pantoprazole Sodium (Protonix Tab) 40 mg QAM PO 11/22/16 09:00 12/22/16 08:59 11/22/16 08:39 40 MG Objective Vital Signs Date Time Temp Pulse Resp B/P (MAP) Pulse Ox O2 Delivery O2 Flow Rate FiO2 11/23/16 00:00 Room Air 11/22/16 23:46 37.2 88 16 110/63 (79) 97 Room Air 11/22/16 16:10 36.8 85 16 92/53 (66) 97 Room Air 11/22/16 16:00 Room Air 11/22/16 08:00 Room Air 11/22/16 07:47 36.8 87 16 105/57 (73) 96 Room Air Physical Exam General Appearance: no apparent distress Eyes: normal inspection ENT: hearing grossly normal Neck: supple Respiratory/Chest: lungs clear Cardiovascular: regular rate, rhythm Abdomen: normal bowel sounds Extremities: non-tender Laboratory Results Last 24 Hours Test 11/22/16 07:34 11/22/16 07:36 11/22/16 11:29 11/22/16 16:36 Bedside Glucose 100 mg/dl 134 mg/dl 90 mg/dl White Blood Count 8.53 K/uL Red Blood Count 4.28 M/uL Hemoglobin 12.2 g/dL Hematocrit 37.8 % Mean Corpuscular Volume 88.3 fL Mean Corpuscular Hemoglobin 28.5 pg Mean Corpuscular Hemoglobin Concent 32.3 g/dl Platelet Count 347 K/uL Mean Platelet Volume 9.8 fL Neutrophils (%) (Auto) 68.5 % Lymphocytes (%) (Auto) 16.6 % Monocytes (%) (Auto) 12.2 % Eosinophils (%) (Auto) 2.0 % Basophils (%) (Auto) 0.5 % Neutrophils # (Auto) 5.84 K/uL Lymphocytes # (Auto) 1.42 K/uL Monocytes # (Auto) 1.04 K/uL Eosinophils # (Auto) 0.17 K/uL Basophils # (Auto) 0.04 K/uL Immature Granulocyte % (Auto) 0.2 % Immature Granulocyte # (Auto) 0.02 K/uL Poikilocytosis PRESENT Anisocytosis PRESENT Target Cells 1+ [place] Bodies 1+ Prothrombin Time 34.7 SECONDS Prothromb Time International Ratio 3.1 Sodium Level 137 mmol/L Potassium Level 4.7 mmol/L Chloride Level 104 mmol/L Carbon Dioxide Level 30 mmol/L Anion Gap 3.0 mmol/L Blood Urea Nitrogen 10 mg/dl Creatinine 0.53 mg/dl Est Creatinine Clear Calc Drug Dose 87.2 ml/min Estimated GFR () 115.5 Estimated GFR (Non- 99.6 BUN/Creatinine Ratio 19.2 Random Glucose 86 mg/dl Calcium Level 9.2 mg/dl Test 11/22/16 20:03 Bedside Glucose 99 mg/dl Assessment and Plan 1. Pulmonary bleeding with supratherapeutic INR. Certainly with an extremely risky situation given that her INR is markedly elevated, she has her PleurX draining blood. She is slightly tachycardic. Fortunately, not anemic. Her blood pressures are reasonable. INR is now therapeutic and the patient is not bleeding. We'll monitor INR while patient is on Levaquin on a daily basis while in the hospital. 2. Coumadin coagulopathy. This is likely due to the interaction with Levaquin. For now, we will hold her Coumadin and give her 5 vitamin K. Fortunately, at this point in time, her main active anticoagulation issue is her atrial fibrillation. So it is low risk, should she get a little bit subtherapeutic. 3. Atrial fibrillation. Continue her home meds except for holding the Coumadin as above. Follow her INR closely. 4. Sinusitis. Continue Levaquin for now appears needed and then we can just get her back on her regular Coumadin, although obviously that will need to be monitored closely while she is on the Levaquin. 5. Coronary artery disease. Clinically, she appears to be stable. Continue her home meds. 6. Deep venous thrombosis prophylaxis. Currently, she is supratherapeutic. She does have prior history of deep venous thromboses, but she relates the last was in about 2013. 7. Valvular heart disease with cardiomyopathy. She is currently compensated without signs or symptoms of active congestive heart failure. 8. Mild hypokalemia, replete. Discharge planning: home
[2016-11-23] MEDS: LEVOTHYROXINE 112 MCG TAB PO SCH (05:01)
[2016-11-23 07:21] LABS: HEMATOCRIT 37.4 % (37-47); MEAN CORPUSCULAR HEMOGLOBIN 28.8 pg (25-34); MEAN CORPUSCULAR HGB CONC 32.4 g/dl (32-36); MEAN PLATELET VOLUME 9.3 fL (7.4-10.4); PLATELET COUNT 345 K/uL (130-400); WHITE BLOOD COUNT 7.91 K/uL (4.8-10.8)
[2016-11-23 07:39] LABS: INR 1.6 (0.9-1.1); PROTHROMBIN TIME (PATIENT) 17.1 SECONDS (9.0-12.0)
[2016-11-23 07:44] VITALS: BP 100/62; PULSE 88; TEMP 36.7; O2SAT 96
[2016-11-23] MEDS: DOCUSATE SODIUM 100 MG CAP PO SCH ×3 (07:45→21:24)
[2016-11-23] MEDS: LOSARTAN POTASSIUM 25 MG TAB PO SCH (07:48)
[2016-11-23] MEDS: FLUTICASONE/SALMETEROL 250/50 (ADVAIR) 14 PUFF/1 INHALER INH SCH ×2 (07:48→21:25)
[2016-11-23] MEDS: POTASSIUM CHLORIDE 20 MEQ TABCR PO SCH ×2 (07:49→21:25)
[2016-11-23] MEDS: METOPROLOL SUCC 50MG EXT REL TAB PO SCH (07:49)
[2016-11-23] MEDS: PANTOprazole SOD 40 MG TAB PO SCH (07:49)
[2016-11-23] MEDS: CHOLECALCIFEROL 1000 INTER.UNIT TAB PO SCH (07:49)
[2016-11-23] MEDS: FUROSEMIDE 40 MG TAB PO SCH (07:49)
[2016-11-23] MEDS: MAGNESIUM OXIDE 400 MG TAB PO SCH ×2 (07:49→21:24)
[2016-11-23 07:56] LABS: BUN/CREATININE RATIO 24.8 (10-20); CREATININE 0.52 mg/dl (0.60-1.20); POTASSIUM 4.7 mmol/L (3.5-5.1)
[2016-11-23] MEDS: LEVOFLOXACIN 500 MG TAB PO SCH (10:35)
[2016-11-23 14:49] VITALS: BP 91/54; PULSE 89; TEMP 36.8; O2SAT 97
--- NOTE | 2016-11-23 19:58 | Progress Note ---
Subjective Date of Service: Nov 23, 2016. Subjective Pt evaluation today including: conversation w/ patient, conversation w/ family , physical exam, chart review, lab review, review of inpatient medication list Problem List Medical Problems: (1) Anemia Status: Acute (2) Dyspnea Status: Acute (3) Pleural effusion Status: Acute (4) Supratherapeutic INR Status: Acute Review of Systems Constitutional: No see HPI, No fever, No chills, No sweats, No weight loss, No weakness, No fatigue, No problem reported Eyes: No see HPI, No worsening of vision, No eye pain, No redness, No discharge , No diplopia, No problem reported ENT: No see HPI, No hearing loss, No unusual epistaxis, No nasal symptoms, No sore throat, No tinnitus, No dental problems, No trouble swallowing, No problem reported Respiratory: No see HPI, No cough, No sputum, No wheezing, No shortness of breath, No dyspnea on exertion, No dyspnea at rest, No hemoptysis, No problem reported Cardiac: No see HPI, No chest pain, No orthopnea, No PND, No edema, No claudication, No palpitations, No problem reported Abdomen: No see HPI, No pain, No nausea, No vomiting, No diarrhea, No constipation, No GI bleeding, No problem reported Musculoskeletal: + problem reported (lood tinged draining from pleural space), No see HPI, No joint pain, No muscle pain, No swelling, No calf pain Neurologic: No see HPI, No memory loss, No paralysis, No weakness, No numbness/ tingling, No vertigo, No balance problems, No problem reported Psychiatric: No see HPI, No depression symptoms, No anhedonism, No anxiety, No insomnia, No substance abuse, No problem reported Heme: No see HPI, No abnormal bleeding/bruising, No clotting problems, No swollen lymph nodes, No night sweats, No problem reported Endo: No see HPI, No fatigue, No excessive thirst, No excessive urination, No problem reported Skin: No see HPI, No rash, No itch, No new/changing skin lesions, No color change, No bleeding, No problem reported Objective Vital Signs Date Time Temp Pulse Resp B/P (MAP) Pulse Ox O2 Delivery O2 Flow Rate FiO2 11/23/16 16:00 Room Air 11/23/16 14:49 36.8 89 16 91/54 (66) 97 Room Air 11/23/16 08:00 Room Air 11/23/16 07:44 36.7 88 18 100/62 (75) 96 Room Air 11/23/16 00:00 Room Air 11/22/16 23:46 37.2 88 16 110/63 (79) 97 Room Air Physical Exam General Appearance: WD/WN, no apparent distress Eyes: normal inspection, PERRL ENT: normal ENT inspection, hearing grossly normal, TMs normal Neck: supple Respiratory/Chest: chest non-tender, lungs clear, normal breath sounds, no respiratory distress, + plerual rub, + pertinent finding (pleurex in place) Cardiovascular: regular rate, rhythm, no edema, no gallop, no JVD Abdomen: normal bowel sounds, non tender, soft, no organomegaly Extremities: normal range of motion, non-tender, normal inspection, no pedal edema Neurologic/Psychiatric: bench examiner II-XII nml as tested, no motor/sensory deficits, alert, normal mood/affect, oriented x 3 Skin: normal color, warm/dry, no rash Laboratory Results Last 24 Hours Test 11/22/16 20:03 11/23/16 06:55 11/23/16 07:33 11/23/16 11:21 Bedside Glucose 99 mg/dl 100 mg/dl 108 mg/dl White Blood Count 7.91 K/uL Red Blood Count 4.20 M/uL Hemoglobin 12.1 g/dL Hematocrit 37.4 % Mean Corpuscular Volume 89.0 fL Mean Corpuscular Hemoglobin 28.8 pg Mean Corpuscular Hemoglobin Concent 32.4 g/dl Platelet Count 345 K/uL Mean Platelet Volume 9.3 fL Prothrombin Time 17.1 SECONDS Prothromb Time International Ratio 1.6 Sodium Level 138 mmol/L Potassium Level 4.7 mmol/L Chloride Level 104 mmol/L Carbon Dioxide Level 30 mmol/L Anion Gap 4.0 mmol/L Blood Urea Nitrogen 13 mg/dl Creatinine 0.52 mg/dl Est Creatinine Clear Calc Drug Dose 88.9 ml/min Estimated GFR () 116.2 Estimated GFR (Non- 100.3 BUN/Creatinine Ratio 24.8 Random Glucose 117 mg/dl Calcium Level 9.0 mg/dl Test 11/23/16 16:30 Bedside Glucose 106 mg/dl Assessment and Plan 66 years old female with Hx of pneumonia and pleural drain , she was placed on levofloxacin and apparently worsened her INR due to interaction with coumadin Hemothorax with supratherapeutic INR. coumadin is on hold INR is below therapeutic consult cardiothoracic surgery team Coumadin coagulopathy. likely due to Levaquin. S/P vitamin K. INR is 1.6, will restart on a lower dose Atrial fibrillation. restart Coumadin on a lower dose till levofloxacin is off Sinusitis. Continue Levaquin for now , add normal saline nasla spray Coronary artery disease. Hx of Deep venous thrombosis , SCD and restart Coumadin Valvular heart disease with cardiomyopathy. compensated . Discharge planning: home
[2016-11-23] MEDS ORDERED: WARFARIN SOD 3 MG TAB PO SCH (20:00)
[2016-11-23] MEDS: BACLOFEN 10 MG TAB PO PRN (21:24)
[2016-11-23] MEDS: ASPIRIN 81 MG ECTAB PO SCH (21:24)
[2016-11-23] MEDS: ATORVASTATIN 20 MG TAB PO SCH (21:25)
[2016-11-23 23:39] VITALS: BP 91/55; PULSE 87; TEMP 36.4; O2SAT 97
[2016-11-24] MEDS: LEVOTHYROXINE 112 MCG TAB PO SCH (05:06)
[2016-11-24 07:45] LABS: BASO % 0.9 %; BASO ABS # 0.07 K/uL (0-0.2); EOS % 3.1 %; HEMATOCRIT 37.2 % (37-47); IG% 0.4 %; LYMPH % 20.6 %; LYMPH ABS # 1.58 K/uL (1.2-3.4); MEAN CELL VOLUME 89.4 fL (80-100); MEAN CORPUSCULAR HEMOGLOBIN 28.8 pg (25-34); MEAN CORPUSCULAR HGB CONC 32.3 g/dl (32-36); MEAN PLATELET VOLUME 9.7 fL (7.4-10.4); MONO % 10.3 %; NEUT % 64.7 %; PLATELET COUNT 347 K/uL (130-400); RED BLOOD COUNT 4.16 M/uL (4.2-5.4); WHITE BLOOD COUNT 7.67 K/uL (4.8-10.8)
[2016-11-24 08:07] LABS: INR 1.3 (0.9-1.1); PROTHROMBIN TIME (PATIENT) 13.6 SECONDS (9.0-12.0)
[2016-11-24 08:10] VITALS: BP 124/66; PULSE 80; TEMP 36.7; O2SAT 98
[2016-11-24 08:11] LABS: BUN/CREATININE RATIO 27.8 (10-20); CALCIUM 9.3 mg/dl (8.5-10.1); CREATININE 0.51 mg/dl (0.60-1.20); MAGNESIUM 2.1 mg/dl (1.8-2.4); POTASSIUM 4.3 mmol/L (3.5-5.1)
[2016-11-24 08:14] LABS: ALB/GLOB RATIO 0.7 (0.9-2); PHOSPHORUS 4.2 mg/dl (2.5-4.9)
[2016-11-24] MEDS: PANTOprazole SOD 40 MG TAB PO SCH (09:00)
[2016-11-24] MEDS: LOSARTAN POTASSIUM 25 MG TAB PO SCH (09:01)
[2016-11-24] MEDS: DOCUSATE SODIUM 100 MG CAP PO SCH (09:01)
[2016-11-24] MEDS: METOPROLOL SUCC 50MG EXT REL TAB PO SCH (09:01)
[2016-11-24] MEDS: CHOLECALCIFEROL 1000 INTER.UNIT TAB PO SCH (09:02)
[2016-11-24] MEDS: FUROSEMIDE 40 MG TAB PO SCH (09:02)
[2016-11-24] MEDS: BACLOFEN 10 MG TAB PO PRN (09:02)
[2016-11-24] MEDS: FLUTICASONE/SALMETEROL 250/50 (ADVAIR) 14 PUFF/1 INHALER INH SCH (09:02)
[2016-11-24] MEDS: MAGNESIUM OXIDE 400 MG TAB PO SCH (09:03)
[2016-11-24] MEDS: POTASSIUM CHLORIDE 20 MEQ TABCR PO SCH (09:03)
[2016-11-24 09:22] LABS: ACANTHOCYTES 1+; ANISOCYTOSIS PRESENT; COMPLETE YES; TARGET CELLS 1+
--- NOTE | 2016-11-24 10:59 | Discharge Instructions ---
Discharge Instructions Date of Service Nov 24, 2016. Admission Reason for Admission: Coagulopathy, Pulmonary Hemorrhage Discharge Discharge Diagnosis / Problem: Hemothorax Discharge Goals Goal(s): Decrease discomfort Activity Recommendations Activity Limitations: resume your previous activity Driving or Machine Use: no limitations . Instructions / Follow-Up Instructions / Follow-Up home visiting nurse to Check INR every other day and send results to PCP until instructed by PCP to change frequency continue lovenox SQ injections, 40mg BID X 5 days to allow INR to become therapeutic continue levofloxacin (the antibiotic) for 2 more days , last dose is 11/26 Current Hospital Diet Patient's current hospital diet: Regular Diet Discharge Diet Recommended Diet: AHA Diet (Heart Healthy) Pending Studies Studies pending at discharge: no Laboratory Results Hemoglobin A1c Test 11/20/16 13:24 Range/Units Estimated Average Glucose 117 mg/dl Hemoglobin A1c 5.7 H 4.5-5.6 % Medical Emergencies . Who to Call and When: Medical Emergencies: If at any time you feel your situation is an emergency, please call 911 immediately. . Non-Emergent Contact Non-Emergency issues call your: Primary Care Provider, Specialist Call Non-Emergent contact if: you have a fever, your pain is worsening . . "Provider Documentation" section prepared by Bouchra Buchanan. . VTE Core Measure Inpt VTE Proph given/why not?: Warfarin (Coumadin)
[2016-11-24] MEDS ORDERED: ENOX40IN SQ (11:02)
[2016-11-24] MEDS ORDERED: LEVO1TAB33 PO (11:02)
--- NOTE | 2016-11-24 11:26 | SURGICAL CONSULTATION ---
DATE OF CONSULTATION: 11/24/2016 DATE OF CONSULTATION: 11/24/2016 REASON FOR CONSULTATION: Indwelling right PleurX catheter. HISTORY OF PRESENT ILLNESS: Litzy Preston is a 66-year-old female who has multiple issues from a pulmonary standpoint. Back in March of this year, I inserted a PleurX catheter. The patient has a history of non-Hodgkin lymphoma treated with radiation to her mediastinum. She also had repeated pneumonias in the past. She presented to the hospital back in March and noted to have large bilateral pleural effusions. She also has a history of pulmonary emboli in the past and history of cigarette smoking. I performed a right thoracentesis for 1250 mL and it fairly quickly reaccumulated so I placed a PleurX catheter on 04/21/2016 and drained about 600 mL. Since that time we have been draining this. She really is not draining very much. She does not reaccumulate fluid on the left. Her x-rays have looked very good. She was drained yesterday for 115 mL and had not been drained in a few days, although she came in over anticoagulated, probably due to the fact she was taking Levaquin for a sinus infection and had bloody effusion. This has decreased. She only drained 115 mL yesterday. I was asked to see her to help manage this catheter. She is going to be discharged later today. We will see her back in the office next week with an x-ray. PAST MEDICAL HISTORY: 1. Recurrent right pleural effusion, probably secondary to radiation and non-Hodgkin's lymphoma. 2. Pulmonary emboli. 3. Hypertension. 4. Pneumonia in the past. 5. Hemoptysis. 6. History of cigarette smoking. 7. Coronary artery disease. 8. Myocardial infarction. 9. Diabetes mellitus. 10. Hypothyroidism. PAST SURGICAL HISTORY: 1. Left breast biopsy. 2. Insertion of right PleurX catheter. 3. Right thoracentesis. 4. ERCP. 5. Percutaneous transluminal angioplasty and stent. 6. Pulmonary arteriogram with embolization for hemoptysis. 7. Coronary artery bypass grafting. 8. Cholecystectomy. 9. Splenectomy. 10. Cataract surgery. 11. Ablation for atrial tachycardia. MEDICATIONS: 1. Coumadin. 2. Tramadol. 3. Potassium. 4. Omeprazole. 5. Nystatin. 6. Nitroglycerin tablets. 7. Zofran. 8. Metoprolol. 9. Magnesium oxide. 10. Losartan. 11. Synthroid. 12. Levaquin. 13. Combivent inhaler. 14. Colace. 15. Advair Diskus. 16. Nguyen catheter. 17. Valium. 18. Baclofen. 19. Lipitor. 20. Fiorinal with codeine. 21. Enteric coated aspirin. ALLERGIES: 1. ACETAMINOPHEN. 2. ATROPINE. 3. CECLOR. 4. CODEINE. 5. IODINE. 6. PENICILLIN. 7. MORPHINE. 8. PSEUDOEPHEDRINE. 9. SHELLFISH. 10. SUCCINYLCHOLINE. FAMILY MEDICAL HISTORY: The patient's 2 sons and her granddaughter are healthy. SOCIAL HISTORY: The patient is , lives with her who is ill in his own right. She smokes about half pack of cigarettes a day. 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 REVIEW OF SYSTEMS: The patient actually has looked good in the office. I have been seeing her on about a monthly basis. She denies problems with her breathing. Her weight has been stable. She denies any visual or auditory changes. She did have the bleeding which led to her admission. She has had no GI or complaints. She has had no neurologic events. She has had no skin breakdown. PHYSICAL EXAMINATION: GENERAL: This is a 5 foot 2 inch female who is thin, awake and alert. HEAD, EYES, EARS, NOSE, AND THROAT: Her extraocular movements are intact. Pupils are equal, round and reactive. Sclerae are anicteric. Tongue is midline. She has no oral mucosal lesions. NECK: Supple with no lymphadenopathy or carotid bruits. I detect no thyromegaly. She has a regular rate and rhythm of her heart. She has a well-healed sternotomy incision with no click. LUNGS: She is moving air well and her right PleurX catheter site is clean. She has no wheezing. She has marked scoliosis of her spine. ABDOMEN: Soft, nontender. I detect no edema, although she occasionally will have this. EXTREMITIES: She has easily palpable pedal pulses. She has no cranial nerve deficits. She has no joint effusions. She is awake, alert and oriented. ASSESSMENT AND PLAN: Indwelling right pleural catheter. We are going to continue this and I am hopeful will be able to get this out in the near future. We will see her back in the office in 1 week. She is cleared for discharge from our standpoint. ZANDRA
[2016-11-24 11:32] VITALS: BP 124/66; PULSE 80; TEMP 36.7; O2SAT 98
[2016-11-24] MEDS: LEVOFLOXACIN 500 MG TAB PO SCH (11:51)
--- NOTE | 2016-11-24 21:25 | Discharge Summary ---
Discharge Summary Date of Service Nov 24, 2016. Discharge Summary Admission Date: Nov 21, 2016 at 16:59 Discharge Date: Nov 24, 2016 Discharge Disposition: Home with services Principal Diagnosis: hemothorax Immunizations: Have You Had Influenza Vaccine: Yes Influenza Vaccine Date: Jan 13, 2013 History of Tetanus Vaccine?: Yes Tetanus Immunization Date: Nov 13, 2009 History of Pneumococcal: Yes Pneumococcal Date: Jan 13, 2007 History of Hepatitis B Vaccine: Unknown Medication Reconciliation New Medications: Enoxaparin (Lovenox) 40 Mg/0.4 Ml Inj 0.4 ML SQ BID for 5 Days, #10 SYR Changed Medications: Levofloxacin (Levaquin) 500 Mg Tab 500 MG PO DAILY PRN for SINUS INFECTION for 2 Days, #2 TAB (Changed from: 7) starting tomorrow X 2 doses last dose 11/26 Continued Medications: Amoxicillin (Amoxil) 500 Mg Cap 2000 MG PO UD, #21 CAP ONE HOUR PRIOR TO DENTAL Aspirin Enteric Coated (Ecotrin Or Generic) 81 Mg Tab 81 MG PO HS, TAB Atorvastatin (Lipitor) 80 Mg Tab 80 MG PO HS, TAB Baclofen (Lioresal) 10 Mg Tab 10 MG PO BID PRN for Muscle Spasms, TAB [id number]-Fqvaiol-Kggcbihu W/ (Fiorinal/Codeine #3) 1 Cap Cap 1 CAP PO Q6 PRN for Headache Cholecalciferol (Vitamin D) 2,000 Unit Tab 1 TAB PO QAM Diazepam (Valium) 5 Mg Tab 5 MG PO TID PRN for Anxiety Diphenhydramine Hcl (Benadryl Allergy) 25 Mg Cap 1 CAP PO HS PRN for PRN, #30 CAP Docusate Sodium (Docusate Sodium) 100 Mg Cap 1 CAP PO TID for 7 Days, #21 CAP Fluticasone Prop/Salmeterol (Advair Diskus 250/50 60 Dose) 1 Ea Aerp 1 PUFF INH BID Folic Acid (Folvite) 1 Mg Tab 2 MG PO QAM, TAB Furosemide (Lasix) 40 Mg Tab 40 MG PO QAM, TAB Ipratropium-Albuterol (Combivent Respimat) 1 Aer Aer 1 PUFF INH QID PRN for Shortness of Breath Levothyroxine Sodium (Levothyroxine Sodium) 112 Mcg Tab 112 MCG PO QAM for 90 Days, #90 TAB 3 Refills Losartan Potassium (Cozaar) 25 Mg Tab 25 MG PO QAM, TAB Magnesium Oxide (Mag-Ox) 400 Mg Tab 400 MG PO BID, TAB Metoprolol Succ (Toprol Xl) (Toprol-Xl ) 100 Mg Tabcr 100 MG PO QAM, TAB Nitroglycerin (Nitrostat) 0.4 Mg Tab 0.4 MG UT UD PRN for Chest Pain, [address] ONE TABLET UNDER THE TONGUE EVERY 5 MINUTES FOR UP TO 3 DOSES IF NEEDED FOR CHEST PAIN. Nystatin (Nystatin Suspension) 1 Ml Susp 1 DOSE PO DAILY PRN for PRN Omeprazole (Prilosec) 40 Mg Cap 40 MG PO DAILY, CAP Ondansetron Hcl (Zofran) 4 Mg Tab 4 MG PO Q6H PRN for Nausea, TAB Polyethylene Glycol 3350 (Miralax) 1 Pow Pow 17 GM PO DAILY PRN for CONSTIPATION, #527 GM Potassium Ext Rel (Klor-Con) 20 Meq Tabcr 20 MEQ PO BID Tramadol (Ultram) 50 Mg Tab 50 MG PO Q6 PRN for Pain, TAB Warfarin Sod (Coumadin) 5 Mg Tab 5 MG PO UD TAKE 5MG DAILY ON WEDNESDAY, WEDNESDAY, WEDNESDAY, WEDNESDAY AND WEDNESDAY. ON ALL OTHER DAYS TAKE 7.5MG Warfarin Sod (Jantoven) 5 Mg Tab 7.5 MG PO UD, TAB TAKE 7.5MG ON WEDNESDAY AND WEDNESDAY AND ON ALL OTHER DAYS TAKE 5MG. Discharge Exam Review of Systems: Constitutional: No fever, No chills, No sweats, No weight loss, No weakness , No fatigue, No problem reported Eyes: No worsening of vision, No eye pain, No redness, No discharge, No diplopia, No problem reported ENT: No hearing loss, No unusual epistaxis, No nasal symptoms, No sore throat, No tinnitus, No dental problems, No trouble swallowing, No problem reported Respiratory: No cough, No sputum, No wheezing, No shortness of breath, No dyspnea on exertion, No dyspnea at rest, No hemoptysis, No problem reported Cardiovascular: No chest pain, No orthopnea, No PND, No edema, No claudication, No palpitations, No problem reported Abdomen: No pain, No nausea, No vomiting, No diarrhea, No constipation, No GI bleeding, No problem reported Musculoskeletal: No joint pain, No muscle pain, No swelling, No calf pain, No problem reported Genitourinary - Male: No hematuria, No dysuria, No urinary frequency, No urinary urgency, No urinary hesitancy, No urinary retention, No urinary incontinence, No penile discharge, No lesions, No impotence, No problem reported Neurologic: No memory loss, No paralysis, No weakness, No numbness/tingling , No vertigo, No balance problems, No problem reported Psychiatric: No depression symptoms, No anhedonism, No anxiety, No insomnia , No substance abuse, No problem reported Endocrine: No fatigue, No excessive thirst, No excessive urination, No problem reported Hematologic / Lymphatic: No abnormal bleeding/bruising, No clotting problems , No swollen lymph nodes, No night sweats, No problem reported Integumentary: No rash, No itch, No new/changing skin lesions, No color change, No bleeding, No problem reported Physical Exam: General Appearance: WD/WN, no apparent distress Eyes: normal inspection, EOMI ENT: normal ENT inspection, hearing grossly normal Neck: supple Respiratory/Chest: chest non-tender, lungs clear, normal breath sounds, no respiratory distress Cardiovascular: regular rate, rhythm, no edema, no gallop, no JVD, no murmur Abdomen / GI: normal bowel sounds, non tender, soft, no organomegaly, no pulsatile mass, normal rectal exam Extremities: normal inspection, no calf tenderness, normal capillary refill , no pedal edema Neurologic/Psychiatric: 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 Numbness noticed blood in pleural drain. She was sent to the hospital for further evaluation. She was found to have a 9 on more than 7. Coumadin was held and she was giving vitamin K. INR slowly improved currently is 1.3. Patient was seen by cardiothoracic surgeon who cleared patient for discharge home as hemothorax completely cleared. Patient has only 2 doses left from her levofloxacin will continue that. She will be bridged with Lovenox and Coumadin. Home nurse will check INR every other day until INR is therapeutic. 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 Total Time Spent: Greater than 30 minutes This includes examination of the patient, discharge planning, medication reconciliation, and communication with other providers. Discharge Instructions Please refer to the electronic Patient Visit Report (Discharge Instructions) for additional information.
== END 2016-11-24 13:12 | disposition home health service (06) | DRG 187 ==
LOC: C.EDB 14:37 → C.MS2W 16:59 → ENRESERV 17:16
PROVIDERS: ADMIT Family Medicine; ATTEND Internal Medicine
DX: J94.2 Hemothorax (principal); T36.8X5A Adverse effect of other systemic antibiotics, initial encounter; D68.32 Hemorrhagic disorder due to extrinsic circulating anticoagulants; I50.30 Unspecified diastolic (congestive) heart failure; T45.515A Adverse effect of anticoagulants, initial encounter; J90 Pleural effusion, not elsewhere classified; I25.2 Old myocardial infarction; I11.9 Hypertensive heart disease without heart failure; Z86.711 Personal history of pulmonary embolism; Z95.5 Presence of coronary angioplasty implant and graft; Z83.3 Family history of diabetes mellitus; F17.200 Nicotine dependence, unspecified, uncomplicated; Z79.01 Long term (current) use of anticoagulants; I48.91 Unspecified atrial fibrillation; Z95.2 Presence of prosthetic heart valve; I25.10 Atherosclerotic heart disease of native coronary artery without angina pectoris; Z86.718 Personal history of other venous thrombosis and embolism; E55.9 Vitamin D deficiency, unspecified; E78.5 Hyperlipidemia, unspecified; J32.9 Chronic sinusitis, unspecified; E87.6 Hypokalemia; Z95.1 Presence of aortocoronary bypass graft; Y92.019 Unspecified place in single-family (private) house as the place of occurrence of the external cause; Z85.72 Personal history of non-Hodgkin lymphomas; D64.9 Anemia, unspecified; E11.9 Type 2 diabetes mellitus without complications; M85.80 Other specified disorders of bone density and structure, unspecified site; I82.409 Acute embolism and thrombosis of unspecified deep veins of unspecified lower extremity

== ENCOUNTER → 2016-12-01 | Outpatient (CLI) | payer OTHER ==
[~2016-12-01] MED LIST changes: -CLC100X PO; +DOCU100C31 PO; -OMEP40CA PO; +OMEP40CA41 PO; +WARF5TAB7 PO
--- NOTE | 2016-12-01 14:01 | DIAGNOSTIC IMAGING REPORT ---
CHEST 2 VIEWS ROUTINE HISTORY: 66 years-old Female J90 pleural effusion follow-up. Recent chest pain. COMPARISON: Chest radiographs 11/21/2016, CT chest 04/22/2016. TECHNIQUE: PA and lateral views of the chest FINDINGS: Cardiac silhouette is within normal limits. There is atherosclerosis of the aorta. Prior median sternotomy. Biapical pleural parenchymal scarring is unchanged. Multifocal calcified granulomas of the bilateral lungs are redemonstrated. There is chronic blunting of the right costophrenic angle with small left pleural effusion unchanged. There are surgical clips within the upper abdomen. The bones are grossly intact. IMPRESSION: 1. Chronic blunting of the right costophrenic angle suggests scarring with small effusion, unchanged. 2. Persistent small left pleural effusion. The above report was generated using voice recognition software. It may contain grammatical, syntax or spelling errors. Electronically signed by: Bakari Sanchez M.D. 12/01/2016 1:59 PM Dictated Date/Time: 12/01/2016 1:57 PM
== END | disposition home or self-care (01) ==
LOC: C.RAD 13:37
PROVIDERS: ATTEND Surgery
DX: J90 Pleural effusion, not elsewhere classified (principal)

== ENCOUNTER → 2016-12-08 | Outpatient (CLI) | payer OTHER ==
--- NOTE | 2016-12-08 11:06 | DIAGNOSTIC IMAGING REPORT ---
CHEST 2 VIEWS ROUTINE CLINICAL HISTORY: J90 Pleural [id number] COMPARISON STUDY: 12/01/2016 FINDINGS: There are postsurgical changes of midline sternotomy. The heart is normal in size. There are extensive postsurgical changes present within the abdomen. There is no acute parenchymal consolidation. There is biapical pleural and parenchymal scarring unchanged the prior study. There is chronic right basilar pleural-parenchymal scarring. There is stable blunting of the left lateral costophrenic angle. There is a right-sided pleural drain in position..[ IMPRESSION: No sitting in change from the prior study. No change the position of the right-sided pleural drain. Small bilateral pleural effusions. Chronic biapical pleural-parenchymal scarring. Electronically signed by: Jeromy Torres M.D. 12/08/2016 11:04 AM Dictated Date/Time: 12/08/2016 11:02 AM
== END | disposition home or self-care (01) ==
LOC: C.RAD 10:23
PROVIDERS: ATTEND Physician Assistant
DX: J90 Pleural effusion, not elsewhere classified (principal)

== ENCOUNTER → 2016-12-09 | Outpatient (CLI) | payer OTHER ==
[2016-12-09 15:07] LABS: CREATININE 0.54 mg/dl (0.60-1.20)
[2016-12-09 15:10] LABS: CHOLESTEROL 105 mg/dl (0-200); CHOLESTEROL/HDL RATIO 2.2; HDL CHOLESTEROL 48 mg/dl; LDL CHOLESTEROL CALCULATED 34 mg/dl; TRIGLYCERIDES 115 mg/dl (0-150); VERY LOW DENSITY LIPOPROT CALC 23 mg/dl
== END | disposition home or self-care (01) ==
LOC: C.LABSPEC 11:27
PROVIDERS: ATTEND Internal Medicine
DX: J90 Pleural effusion, not elsewhere classified (principal); J44.9 Chronic obstructive pulmonary disease, unspecified

== ENCOUNTER → 2016-12-10 | Outpatient (CLI) | payer OTHER ==
[2016-12-10 12:23] LABS: URINE APPEARANCE CLEAR (CLEAR); URINE BILIRUBIN NEG (NEG); URINE COLOR YELLOW; URINE NITRITE NEG (NEG); URINE PH 5.5 (4.5-7.5); URINE SPECIFIC GRAVITY 1.018 (1.000-1.030); UROBILINOGEN NEG (NEG); ZZUR CULT IF INDIC CLEAN CATCH NO
[2016-12-10 12:25] LABS: MANUAL MICROSCOPIC REQUIRED? NO; REVIEW REQ? NO
[2016-12-10 13:27] LABS: RATIO 11.1 mcg/mg (0-30.0)
== END | disposition home or self-care (01) ==
LOC: C.LAB1850 11:13
PROVIDERS: ATTEND Internal Medicine
DX: E11.9 Type 2 diabetes mellitus without complications (principal)

== ENCOUNTER → 2016-12-15 | Outpatient (CLI) | payer OTHER ==
--- NOTE | 2016-12-15 10:10 | DIAGNOSTIC IMAGING REPORT ---
CHEST 2 VIEWS ROUTINE CLINICAL HISTORY: 66 years-old Female presenting with PLEURAL EFFUSION. TECHNIQUE: PA and lateral views of the chest were obtained. COMPARISON: 12/08/2016. FINDINGS: Interval removal of the right pleural drain. Median sternotomy wires and suture again noted. Calcified mediastinal lymph nodes unchanged. Persistent elevation of the right hemidiaphragm. Calcified granuloma noted at the left apex and few smaller calcified granulomas noted on the right. Chronic architectural distortion at the right lung base and bilateral apices. No new focal infiltrate. Small bilateral pleural effusions may be present. No pneumothorax. Calcific density in the region of the right supraspinatus likely indicates calcific tendinitis of the rotator cuff. Scattered surgical clips project over the left upper quadrant and epigastrium. IMPRESSION: 1. Removal of the right pleural drain. No pneumothorax. No new focal infiltrate. 2. Small bilateral pleural effusions may be present. 3. Stable biapical and right basilar scarring with evidence of old granulomatous disease. Electronically signed by: Nathan Pérez M.D. 12/15/2016 10:09 AM Dictated Date/Time: 12/15/2016 10:05 AM
== END | disposition home or self-care (01) ==
LOC: C.RAD 09:49
PROVIDERS: ATTEND Surgery
DX: J90 Pleural effusion, not elsewhere classified (principal)

== ENCOUNTER → 2017-02-12 | Outpatient (CLI) | payer OTHER ==
[~2017-02-12] MED LIST changes: +BCTCR/30 EXT; -IPRA1AER2 INH; -LEVO1TAB33 PO; +METO100T44 PO; -METO1TAB69 PO; -ONDA4TAB46 PO; +ONDA4TAB65 PO; -POLY335019 PO; +RANI300T2 PO; +VNTHFA/IN INH
--- NOTE | 2017-02-12 13:15 | DIAGNOSTIC IMAGING REPORT ---
CHEST 2 VIEWS ROUTINE CLINICAL HISTORY: R05 [id number] dyspnea COMPARISON STUDY: 02/02/2017 FINDINGS: Persistent unchanging pleural thickening right base laterally. Minimal changes left lateral calcific angle. Unchanging prior median sternotomy. Fibrocalcific changes right pulmonary apex and lateral right midlung unaltered unchanged compared to the prior study. No acute or interval process. IMPRESSION: Chronic basilar changes. No acute process is identified. The above report was generated using voice recognition software. It may contain grammatical, syntax or spelling errors. Electronically signed by: Zen Abel M.D. 02/12/2017 1:13 PM Dictated Date/Time: 02/12/2017 1:12 PM
== END | disposition home or self-care (01) ==
LOC: C.RAD 12:37
PROVIDERS: ATTEND Physician Assistant Medical
DX: R05 Cough (principal)

== ENCOUNTER → 2017-05-12 | Outpatient (CLI) | payer OTHER ==
[~2017-05-12] MED LIST changes: -FOLI1TAB7 PO; +FOLI1TAB8 PO; -WARF5TAB7 PO
[2017-05-12 12:19] LABS: HEMATOCRIT 38.4 % (37-47); HEMOGLOBIN 13.2 g/dL (12.0-16.0); MEAN CELL VOLUME 101.6 fL (80-100); MEAN CORPUSCULAR HEMOGLOBIN 34.9 pg (25-34); MEAN CORPUSCULAR HGB CONC 34.4 g/dl (32-36); MEAN PLATELET VOLUME 10.5 fL (7.4-10.4); PLATELET COUNT 220 K/uL (130-400); RED CELL DISTRIBUTION WIDTH CV 14.3 % (11.5-14.5); RED CELL DISTRIBUTION WIDTH SD 53.1 fL (36.4-46.3); WHITE BLOOD COUNT 10.49 K/uL (4.8-10.8)
[2017-05-12 12:49] LABS: BLOOD UREA NITROGEN 10 mg/dl (7-18); CALCIUM 9.6 mg/dl (8.5-10.1); CARBON DIOXIDE 32 mmol/L (21-32); CREATININE 0.49 mg/dl (0.60-1.20); GLUCOSE 89 mg/dl (70-99); POTASSIUM 4.3 mmol/L (3.5-5.1); SODIUM 138 mmol/L (136-145)
== END ==
LOC: C.LAB1850 11:24
PROVIDERS: ATTEND Internal Medicine Cardiovascular Disease
DX: I48.91 Unspecified atrial fibrillation (principal); I25.10 Atherosclerotic heart disease of native coronary artery without angina pectoris; I47.1 Supraventricular tachycardia; I50.32 Chronic diastolic (congestive) heart failure

== ENCOUNTER → 2017-06-18 | Outpatient (CLI) | payer OTHER ==
[~2017-06-18] MED LIST changes: +WARF5TAB7 PO
[2017-06-18 12:41] LABS: BASO % 1.5 %; EOS % 4.3 %; EOS ABS # 0.28 K/uL (0-0.5); HEMATOCRIT 43.3 % (37-47); HEMOGLOBIN 14.4 g/dL (12.0-16.0); IG# 0.01 K/uL (0.00-0.02); LYMPH % 29.1 %; LYMPH ABS # 1.88 K/uL (1.2-3.4); MEAN CELL VOLUME 103.8 fL (80-100); MEAN CORPUSCULAR HEMOGLOBIN 34.5 pg (25-34); MEAN CORPUSCULAR HGB CONC 33.3 g/dl (32-36); MEAN PLATELET VOLUME 11.5 fL (7.4-10.4); MONO % 8.5 %; MONO ABS # 0.55 K/uL (0.11-0.59); NEUT % 56.4 %; NEUT ABS # 3.65 K/uL (1.4-6.5); PLATELET COUNT 207 K/uL (130-400); RED CELL DISTRIBUTION WIDTH CV 14.5 % (11.5-14.5); RED CELL DISTRIBUTION WIDTH SD 55.6 fL (36.4-46.3); WHITE BLOOD COUNT 6.47 K/uL (4.8-10.8)
[2017-06-18 13:08] LABS: ALBUMIN 3.6 gm/dl (3.4-5.0); AST/SGOT 31 U/L (15-37); BLOOD UREA NITROGEN 13 mg/dl (7-18); CALCIUM 9.2 mg/dl (8.5-10.1); CARBON DIOXIDE 28 mmol/L (21-32); CREATININE 0.48 mg/dl (0.60-1.20); GLUCOSE 92 mg/dl (70-99); POTASSIUM 4.3 mmol/L (3.5-5.1); SODIUM 139 mmol/L (136-145)
[2017-06-18 13:17] LABS: ALKALINE PHOSPHATASE 113 U/L (45-117); ALT/SGPT 33 U/L (12-78); CHOLESTEROL 103 mg/dl (0-200); LDL CHOLESTEROL CALCULATED 35 mg/dl; TOTAL PROTEIN 7.9 gm/dl (6.4-8.2)
== END | disposition home or self-care (01) ==
LOC: C.LABBFT 09:34
PROVIDERS: ATTEND Physician Assistant Medical
DX: E11.9 Type 2 diabetes mellitus without complications (principal)

== ENCOUNTER → 2017-07-08 | Outpatient (CLI) | payer OTHER ==
[~2017-07-08] MED LIST changes: +ASPI-319 PO; -ASPI81TA21 PO; +ASTN NAE; +CLR10 PO; +FLUT0.15 NAE; -LOSA25TA18 PO; +POTA-639 PO; -POTA20TA16 PO
--- NOTE | 2017-07-08 12:26 | DIAGNOSTIC IMAGING REPORT ---
CT SCAN OF THE PARANASAL SINUSES CLINICAL HISTORY: Sinus pressure. COMPARISON STUDY: No priors. TECHNIQUE: High-resolution CT scan of the paranasal sinuses is performed. Images are reviewed in the axial, sagittal, and coronal planes. IV contrast was not administered for this examination. A dose lowering technique was utilized adhering to the principles of ALARA. CT DOSE: 551.15 mGy.cm FINDINGS: Maxillary antra: Trace dependent mucosal thickening is seen on the right. Clear on the left. Thin bony septations are present within the maxillary antra inferiorly. Anterior ethmoid sinuses: Trace mucosal thickening is seen anteriorly. Posterior ethmoid sinuses: Clear. Sphenoid sinuses: Trace mucosal thickening is similar. Clear on the right. Frontal sinuses: Clear. Ostiomeatal complexes: Patent bilaterally. Frontoethmoidal and sphenoethmoidal recesses: Patent bilaterally. Carotid arteries: The carotid arteries are covered. There is a septal attachment on the right. Ethmoid roofs: The ethmoid roofs are symmetric. Nasal turbinates: There is little bullosa of the right middle nasal turbinate. Nasal septum: There is minimal leftward deviation of the bony nasal septum with a small spur. Optic nerves: Covered. Orbits: The bony orbits are intact. Orbital contents are normal in appearance noting bilateral ocular lens implants. Calvarium: The imaged calvarium is normal in appearance. Advanced arthritic change is present in the temporomandibular joints. Mastoid air cells: There is a large left mastoid effusion. The right mastoid air cells are clear. Brain parenchyma: Partially visualized brain parenchyma is within normal limits. There is atherosclerotic calcification of the cavernous carotid and vertebral arteries. IMPRESSION: 1. No significant paranasal sinus disease. See above. 2. Large left mastoid effusion. Electronically signed by: Jean Gant M.D. 07/08/2017 12:25 PM Dictated Date/Time: 07/08/2017 12:22 PM
== END | disposition home or self-care (01) ==
LOC: C.CTS 12:03
PROVIDERS: ATTEND Internal Medicine
DX: J34.89 Other specified disorders of nose and nasal sinuses (principal)

== ENCOUNTER → 2017-11-02 | Outpatient (CLI) | payer OTHER ==
[2017-11-03 06:10] LABS: HEMOGLOBIN A1C 6.1 % (4.5-5.6)
== END | disposition home or self-care (01) ==
LOC: C.LABBFT 12:17
PROVIDERS: ATTEND Physician Assistant Medical
DX: R77.1 Abnormality of globulin (principal); E11.9 Type 2 diabetes mellitus without complications; R00.2 Palpitations

== ENCOUNTER → 2017-11-10 | Outpatient (CLI) | payer OTHER | END | disposition home or self-care (01) | LOC: C.LABBFT 11:28 | PROVIDERS: ATTEND Internal Medicine | DX: R77.1 Abnormality of globulin (principal) ==

== ENCOUNTER 2018-05-09 12:46 | Inpatient (IN) ==
[2018-05-09 13:36] LABS: Hemoglobin 11.4 g/dL (12.0-16.0); Mean Corpuscular Hgb Conc 33.5 g/dL (32-36); Mean Corpuscular Volume 103.3 fL (80-100); Mean Platelet Volume 10.1 fL (7.4-10.4); Nucleated RBC # (auto) 0.02 K/uL (0-0); Nucleated RBC % (auto) 0.1 %; Platelet Count 392 K/uL (130-400); RDW Coefficient of Variation 17.6 % (11.5-14.5); RDW Standard Deviation 64.2 fL (36.4-46.3); Red Blood Count 3.29 M/uL (4.2-5.4); White Blood Count 25.24 K/uL (4.8-10.8)
[2018-05-09] MEDS ORDERED: FUROSEMIDE 40 MG/4 ML VIAL IV STA (13:42)
[2018-05-09 13:52] LABS: INR 2.2 (0.9-1.1); Partial Thromboplastin Ratio 1.4; Partial Thromboplastin Time 37.2 Seconds (21.0-31.0); Prothrombin Time 21.2 Seconds (9.0-12.0)
[2018-05-09 13:53] LABS: Alanine Aminotransferase 17 U/L (12-78); Albumin Level 3.1 gm/dl (3.4-5.0); Aspartate Aminotransferase 20 U/L (15-37); BUN Creatinine Ratio 42.1 (10-20); Blood Urea Nitrogen 15 mg/dl (7-18); Calcium 8.8 mg/dl (8.5-10.1); Carbon Dioxide 30 mmol/L (21-32); Chloride 96 mmol/L (98-107); Est GFR (African American) 130.2; Est GFR (Non-African American) 112.4; Glucose 115 mg/dl (70-99); Potassium 4.1 mmol/L (3.5-5.1); Sodium 132 mmol/L (136-145)
[2018-05-09 13:57] LABS: Albumin Globulin Ratio 0.7 (0.9-2); Alkaline Phosphatase 129 U/L (45-117); Bilirubin,Total 0.4 mg/dl (0.2-1); Globulin 4.3 gm/dl (2.5-4.0); Total Protein 7.4 gm/dl (6.4-8.2); Troponin I < 0.015 ng/ml (0-0.045)
[2018-05-09 14:09] LABS: Anisocytosis Present; Basophils # (auto) 0.07 K/uL (0-0.2); Basophils % (auto) 0.3 %; Eosinophils # (auto) 0.04 K/uL (0-0.5); Eosinophils % (auto) 0.2 %; Immature Granulocytes # (auto) 0.66 K/uL (0.00-0.02); Immature Granulocytes % (auto) 2.6 %; Lymphocytes # (auto) 1.72 K/uL (1.2-3.4); Lymphocytes % (auto) 6.8 %; Monocytes # (auto) 2.15 K/uL (0.11-0.59); Monocytes % (auto) 8.5 %; Neutrophils % (auto) 81.6 %
--- NOTE | 2018-05-09 14:17 | Emergency Department Note ---
Entered by Parvez Tavarez acting as a scribe for Alireza Hendricks DO History of Present Illness General Chief complaint: Cardiac Assessment Stated complaint: CHF-CX DONE 05.09.18 RT PLEURAL EFFUSION Time Seen by Provider: 05/09/18 13:25 Source: patient Limitations: no limitations History of Present Illness Provider complaint: Hypoxia Onset (ago): hour(s) Location: chest (Hypoxia) Pain Consistency: + other (persistent nausea and vomiting) Maximum Pain Intensity: 5 Quality: + other (Hypoxia) Associated symptoms: + nausea/vomiting The patient is a 67 year old female who presents to the Emergency Room after referral from the cancer care clinic for hypoxia. The patient states that she has been experiencing nausea and vomiting for the past couple of days and was going to the cancer clinic today for IV-fluids and hydration. Upon arrival to the [facility] she was hypoxic with oxygen saturation down into the 70s. The patient denies wearing oxygen at baseline. She hotes a history of CHF and 2 previous MIs with quadruple bypass surgery. 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 Home Medications Home Medications Medication Instructions Recorded Confirmed Type albuterol sulfate [Ventolin HFA] 2 puff INHALATION Q6H PRN 12/22/17 05/09/18 History amoxicillin 2,000 mg PO DIRECTED 12/22/17 05/09/18 History aspirin 81 mg PO HS 12/22/17 05/09/18 History atorvastatin 80 mg PO HS 12/22/17 05/09/18 History azelastine 2 spray INTRANASAL Q12H 12/22/17 05/09/18 History baclofen 10 mg PO Q12 PRN 12/22/17 05/09/18 History cholecalciferol (vitamin D3) 2,000 unit PO QAM 12/22/17 05/09/18 History [Vitamin D3] diazepam [Valium] 5 mg PO TID PRN 12/22/17 05/09/18 History diphenhydramine HCl [Benadryl] 25 mg PO HS PRN 12/22/17 05/09/18 History docusate sodium 100 mg PO BID 12/22/17 05/09/18 History fluticasone [Flonase Allergy 1 spray INTRANASAL QAM 12/22/17 05/09/18 History Relief] fluticasone-salmeterol [Advair 1 inh INHALATION Q12H 12/22/17 05/09/18 History Diskus] folic acid 2 mg PO DAILY 12/22/17 05/09/18 History furosemide 20 mg PO UD 12/22/17 05/09/18 History levothyroxine 112 mcg PO QAM 12/22/17 05/09/18 History loratadine 10 mg PO QAM 12/22/17 05/09/18 History magnesium oxide 400 mg PO Q12 12/22/17 05/09/18 History metoprolol succinate 100 mg PO QAM 12/22/17 05/09/18 History nitroglycerin [Nitrostat] 0.4 mg SUBLINGUAL DIRECTED PRN 12/22/17 05/09/18 History omeprazole 40 mg PO QAM 12/22/17 05/09/18 History potassium chloride [Klor-Con M20] 20 meq PO Q12 12/22/17 05/09/18 History ranitidine HCl [Zantac] 0 mg PO HS PRN 12/22/17 05/09/18 History warfarin 5 mg tablet 5 mg PO UD tab 02/07/18 05/09/18 History vitamin B complex [B-Complex] 1 tab PO QAM 02/22/18 05/09/18 History tramadol 50 - 100 mg PO Q6H #20 tab 03/03/18 05/09/18 Rx nystatin 5 ml PO QID #140 ml 03/04/18 05/09/18 Rx albuterol sulfate 2.5 mg INHALATION QID PRN 05/09/18 05/09/18 History fqqenzx-azcpnpfyft-KVZ-caff 1 cap PO Q4H PRN 05/09/18 05/09/18 History [Fiorinal-Codeine #3] dronabinol 5 mg PO TID 05/09/18 05/09/18 History ferrous sulfate 325 mg PO TID 05/09/18 05/09/18 History ondansetron 8 mg PO TID PRN 05/09/18 05/09/18 History prochlorperazine maleate 10 mg PO QID PRN 05/09/18 05/09/18 History Allergies Allergy/AdvReac Type Severity Reaction Status Date / Time meperidine Allergy Intermediate SWELLING Verified 05/09/18 14:35 acetaminophen Allergy Unknown ? Verified 05/09/18 14:35 atropine Allergy Unknown ? Verified 05/09/18 14:35 bee venom protein (honey bee) Allergy Unknown SWELLING Verified 05/09/18 14:35 cefaclor Allergy Unknown ? Verified 05/09/18 14:35 codeine Allergy Unknown ? Verified 02/22/18 17:41 dextromethorphan Allergy Unknown HALLUCINATI Verified 05/09/18 14:35 ON diphenoxylate Allergy Unknown ? Verified 05/09/18 14:35 doxylamine Allergy Unknown HALLUCINATI Verified 05/09/18 14:35 ON Gold Salts Allergy Unknown RASH Verified 05/09/18 14:35 iodine Allergy Unknown "D/T Verified 05/09/18 14:35 ALLERGY TO SHRIMP" lidocaine Allergy Unknown LETHARGY Verified 05/09/18 14:35 midazolam Allergy Unknown MUSCLE Verified 05/09/18 14:35 SPAMS AND HALLUCINATIONS morphine Allergy Unknown SWELLING Verified 05/09/18 14:35 Penicillins Allergy Unknown ? Verified 05/09/18 14:35 propantheline Allergy Unknown ? Verified 05/09/18 14:35 propoxyphene Allergy Unknown SWELLING Verified 05/09/18 14:35 pseudoephedrine Allergy Unknown HALLUCINATI Verified 05/09/18 14:35 ON shellfish derived Allergy Unknown ? Verified 05/09/18 14:35 shrimp Allergy Unknown THROAT Verified 05/09/18 14:35 SWELLS SHUT succinylcholine Allergy Unknown TOLD NEVER Verified 05/09/18 14:35 TO USE, NEICE SEVERELY ALLERGIC TO MEDS adhesive AdvReac Mild Steri-strip Verified 05/09/18 14:35 - blisters Ethanol Allergy Unknown HALLUCINATI Uncoded 05/09/18 14:35 ON TALWIN Allergy Unknown HIVES AND Uncoded 05/09/18 14:35 CONFUSION WALNUTS Allergy Unknown SWELLING Uncoded 05/09/18 14:35 Past Med/Surg History Medical History Small cell lung cancer Afib Anxiety CAD (coronary artery disease) CHF (congestive heart failure) COPD (chronic obstructive pulmonary disease) Hyponatremia Acute myocardial infarction Atrial ectopic tachycardia GERD (gastroesophageal reflux disease) Hx of Hodgkins lymphoma Hypothyroid Pulmonary hemorrhage Upper GI bleed Surgical History Hx of cholecystectomy Hx of heart artery stent Hx of splenectomy S/P bronchoscopy with biopsy EBUS/harmony bronch on 02/24/2018. 8.0ETT. MAC 3, grade 1 view. Patient reintubated postextubation (while still in operating room) for what appeared to be CO2 retention. Please see record for full details. Social History marital status: Current Living Situation: Spouse current occupational status: retired Other Information That Helps Us Care for You: No Feels Safe at Home: Yes Safety Concerns: Feels Safe At This Time Smoking Status: Current every day smoker Tobacco Type: cigarettes Cigarettes per Day: 10 Do You Dip or Chew Tobacco: No Tobacco Cessation Education Requested by Patient: No Hx Alcohol Use: No Hx Substance Use: No Beliefs That Will Affect Care: Druze Druze Beliefs: Protestant Preferred Language: Romansh Communication Ability: Effective Communication Ability Comment: some difficulty speaking d/t SOB Hydrographic Engineer Required: No Review of Systems See HPI for pertinent positives & negatives. and A total of 10 systems reviewed and were otherwise negative Physical Exam Vital Signs Vital Signs - 24 hr 05/09/18 12:55 05/09/18 13:00 05/09/18 13:25 Temperature 36.3 C L Temperature Source Oral Sepsis Recent Fever Within 48 Hours No Sepsis New/Unexplained Change in Mental Status No Sepsis Action Taken by Nursing No Action Required Pulse Rate 110 H Pulse Rate [Finger] Pulse Rate [Right Radial] Respiratory Rate 24 Respiratory Effort / Characteristics Respiratory Depth Normal Respiratory Pattern Blood Pressure 124/66 Blood Pressure [Right Arm] Blood Pressure Mean 85 Blood Pressure Mean [Right Arm] Blood Pressure Position Sitting Blood Pressure Position [Right Arm] Pulse Oximetry 93 97 Oxygen Delivery Method Nasal Cannula Nasal Cannula Nasal Cannula Oxygen Flow Rate 2 2 2 05/09/18 13:40 05/09/18 13:41 05/09/18 13:43 Temperature Temperature Source Sepsis Recent Fever Within 48 Hours Sepsis New/Unexplained Change in Mental Status Sepsis Action Taken by Nursing Pulse Rate 112 H 103 H Pulse Rate [Finger] Pulse Rate [Right Radial] Respiratory Rate 26 H 27 H Respiratory Effort / Characteristics Respiratory Depth Respiratory Pattern Blood Pressure 99/77 L Blood Pressure [Right Arm] Blood Pressure Mean 84 Blood Pressure Mean [Right Arm] Blood Pressure Position Blood Pressure Position [Right Arm] Pulse Oximetry 91 97 92 Oxygen Delivery Method Nasal Cannula Oxygen Flow Rate 2 05/09/18 13:45 05/09/18 14:57 05/09/18 15:40 Temperature Temperature Source Sepsis Recent Fever Within 48 Hours Sepsis New/Unexplained Change in Mental Status Sepsis Action Taken by Nursing Pulse Rate 111 H Pulse Rate [Finger] Pulse Rate [Right Radial] Respiratory Rate 24 Respiratory Effort / Characteristics Spontaneous SOB on Exertion Respiratory Depth Respiratory Pattern Regular Blood Pressure 125/77 Blood Pressure [Right Arm] Blood Pressure Mean Blood Pressure Mean [Right Arm] Blood Pressure Position Blood Pressure Position [Right Arm] Pulse Oximetry 93 92 Oxygen Delivery Method Nasal Cannula Nasal Cannula Nasal Cannula Oxygen Flow Rate 2 2 2 05/09/18 18:39 05/09/18 19:08 05/09/18 19:34 Temperature 36.9 C Temperature Source Oral Sepsis Recent Fever Within 48 Hours Sepsis New/Unexplained Change in Mental Status Sepsis Action Taken by Nursing Pulse Rate Pulse Rate [Finger] 107 H Pulse Rate [Right Radial] 69 Respiratory Rate 16 18 Respiratory Effort / Characteristics Non-Labored Spontaneous Respiratory Depth Respiratory Pattern Blood Pressure Blood Pressure [Right Arm] 101/65 Blood Pressure Mean Blood Pressure Mean [Right Arm] 77 Blood Pressure Position Blood Pressure Position [Right Arm] Sitting Pulse Oximetry 95 94 Oxygen Delivery Method Nasal Cannula Nasal Cannula Nasal Cannula Oxygen Flow Rate 2 2 2 GENERAL: Patient is awake and alert. She is somewhat anxious appearing and appears to be uncomfortable. EYES: The conjunctivae are clear. The pupils are round and reactive. EARS, NOSE, MOUTH AND THROAT: The nose is without any evidence of any deformity. Mucous membranes are moist tongue is midline NECK: The neck is nontender and supple. RESPIRATORY: Diminished breath sounds were noted throughout. There are rales in all lung anne. Poor air movement was noted. CARDIOVASCULAR: Regular rate and rhythm noted there no murmurs rubs or gallops normal S1 normal S2 GASTROINTESTINAL: The abdomen is soft. Bowel sounds are present in all quadrants. Abdomen is nontender MUSCULOSKELETAL/EXTREMITIES: There is no evidence of gross deformity full range of motion is noted in the hips and shoulders SKIN: There is no obvious evidence of any rash. NEUROLOGIC: Patient is awake alert and oriented x3. Course 1325: Past medical records reviewed. The patient was evaluated in room A9A, and a complete history and physical examination were performed. 1341: I reviewed the patient's case with Dr. Lisa Gardner [facility] Hospitalist. She will evaluate the patient for further management. Consultations Consultation #1: 1341: I reviewed the patient's [facility] She will evaluate the patient for further management. Administered Medications Acetylcysteine (Mucomyst 20%) 5 ml INH BID [facility] Stop: 06/08/18 20:59 Last Admin: 05/09/18 19:08 Dose: 5 ml Albuterol (Duoneb) 3 ml NEB QIDR [facility] Stop: 06/08/18 19:59 Last Admin: 05/09/18 19:07 Dose: 3 ml Aspirin (Ecotrin Ectab) 81 mg PO HS [facility] Stop: 06/08/18 20:59 Last Admin: 05/09/18 20:43 Dose: 81 mg Atorvastatin Calcium (Lipitor) 80 mg PO HS [facility] Stop: 06/08/18 20:59 Last Admin: 05/09/18 20:43 Dose: 80 mg Docusate Sodium (Colace) 100 mg PO BID [facility] Stop: 06/08/18 20:59 Last Admin: 05/09/18 20:43 Dose: 100 mg Magnesium Oxide (Mag-Ox) 400 mg PO Q12 [facility] Stop: 06/08/18 20:59 Last Admin: 05/09/18 20:44 Dose: 400 mg Potassium Chloride (Klor-Con M20) 20 meq PO Q12 [facility] Stop: 06/08/18 20:59 Last Admin: 05/09/18 20:43 Dose: 20 meq Fluticasone/Salmeterol (Advair Diskus 250/50) 1 puffs INH Q12H [facility] Stop: 06/08/18 20:59 Last Admin: 05/09/18 20:43 Dose: 1 puffs Warfarin Sodium (Coumadin) 2.5 mg PO [id number] [facility] Stop: 06/08/18 16:59 Last Admin: 05/09/18 18:11 Dose: 2.5 mg Discontinued Medications Furosemide (Lasix) 40 mg IV NOW STA Stop: 05/09/18 13:43 Last Admin: 05/09/18 14:12 Dose: 40 mg Medical Decision Making Differential Diagnosis Differential diagnosis: Etiologies such as infections, reactive airway disease, COPD, pneumonia, pleural effusion, pulmonary edema, ARDS, pneumothorax, CHF, cardiac ischemia, cardiac tamponade, dysrhythmia, anemia, pulmonary embolism, musculoskeletal, gastrointestinal process, as well as others were entertained. Medical Records Attestation: I reviewed the patient's medical records. Home Medications Current Medication List: was personally reviewed by me Laboratory Data Attestation: I reviewed the patient's lab results. Result diagrams: 05/09/18 13:20 05/09/18 13:20 Lab Results 05/09/18 05/09/18 05/09/18 Range/Units 13:20 13:20 13:20 WBC 25.24 H (4.8-10.8) K/uL RBC 3.29 L (4.2-5.4) M/uL Hgb 11.4 L (12.0-16.0) g/dL Hct 34.0 L (37-47) % MCV 103.3 H (80-100) fL MCH 34.7 H (25-34) pg MCHC 33.5 (32-36) g/dL RDW Std Deviation 64.2 H (36.4-46.3) fL RDW Coeff of Franklin 17.6 H (11.5-14.5) % Plt Count 392 (130-400) K/uL MPV 10.1 (7.4-10.4) fL Immature Gran % (Auto) 2.6 % Neut % (Auto) 81.6 % Lymph % (Auto) 6.8 % [place] % (Auto) 8.5 % Eos % (Auto) 0.2 % Baso % (Auto) 0.3 % Immature Gran # (Auto) 0.66 H (0.00-0.02) K/uL Neut # (Auto) 20.60 H (1.4-6.5) K/uL Lymph # (Auto) 1.72 (1.2-3.4) K/uL [place] # (Auto) 2.15 H (0.11-0.59) K/uL Eos # (Auto) 0.04 (0-0.5) K/uL Baso # (Auto) 0.07 (0-0.2) K/uL Absolute Nucleated RBC 0.02 H (0-0) K/uL Nucleated RBC % (auto) 0.1 % Anisocytosis Present PT 21.2 H (9.0-12.0) Seconds INR 2.2 H (0.9-1.1) APTT 37.2 H (21.0-31.0) Seconds PTT Ratio 1.4 Sodium 132 L (136-145) mmol/L Potassium 4.1 (3.5-5.1) mmol/L Chloride 96 L (98-107) mmol/L Carbon Dioxide 30 (21-32) mmol/L Anion Gap 6.0 (3-11) BUN 15 (7-18) mg/dl Creatinine 0.36 L (0.6-1.2) mg/dl Est Cr Clr Drug Dosing 125.0 ml/min Est GFR ( Amer) 130.2 Est GFR (Non-Af Amer) 112.4 BUN/Creatinine Ratio 42.1 H (10-20) Glucose 115 H (70-99) mg/dl POC Glucose (70-99) Calcium 8.8 (8.5-10.1) mg/dl Total Bilirubin 0.4 (0.2-1) mg/dl AST 20 (15-37) U/L ALT 17 (12-78) U/L Alkaline Phosphatase 129 H (45-117) U/L Troponin I < 0.015 (0-0.045) ng/ml Total Protein 7.4 (6.4-8.2) gm/dl Albumin 3.1 L (3.4-5.0) gm/dl Globulin 4.3 H (2.5-4.0) gm/dl Albumin/Globulin Ratio 0.7 L (0.9-2) Influenza Type A Ag (Neg) Influenza Type B Ag (Neg) 05/09/18 05/09/18 05/09/18 Range/Units 13:25 16:53 20:31 WBC (4.8-10.8) K/uL RBC (4.2-5.4) M/uL Hgb (12.0-16.0) g/dL Hct (37-47) % MCV (80-100) fL MCH (25-34) pg MCHC (32-36) g/dL RDW Std Deviation (36.4-46.3) fL RDW Coeff of Franklin (11.5-14.5) % Plt Count (130-400) K/uL MPV (7.4-10.4) fL Immature Gran % (Auto) % Neut % (Auto) % Lymph % (Auto) % [place] % (Auto) % Eos % (Auto) % Baso % (Auto) % Immature Gran # (Auto) (0.00-0.02) K/uL Neut # (Auto) (1.4-6.5) K/uL Lymph # (Auto) (1.2-3.4) K/uL [place] # (Auto) (0.11-0.59) K/uL Eos # (Auto) (0-0.5) K/uL Baso # (Auto) (0-0.2) K/uL Absolute Nucleated RBC (0-0) K/uL Nucleated RBC % (auto) % Anisocytosis PT (9.0-12.0) Seconds INR (0.9-1.1) APTT (21.0-31.0) Seconds PTT Ratio Sodium (136-145) mmol/L Potassium (3.5-5.1) mmol/L Chloride (98-107) mmol/L Carbon Dioxide (21-32) mmol/L Anion Gap (3-11) BUN (7-18) mg/dl Creatinine (0.6-1.2) mg/dl Est Cr Clr Drug Dosing ml/min Est GFR ( Amer) Est GFR (Non-Af Amer) BUN/Creatinine Ratio (10-20) Glucose (70-99) mg/dl POC Glucose 126 H 133 H (70-99) Calcium (8.5-10.1) mg/dl Total Bilirubin (0.2-1) mg/dl AST (15-37) U/L ALT (12-78) U/L Alkaline Phosphatase (45-117) U/L Troponin I (0-0.045) ng/ml Total Protein (6.4-8.2) gm/dl Albumin (3.4-5.0) gm/dl Globulin (2.5-4.0) gm/dl Albumin/Globulin Ratio (0.9-2) Influenza Type A Ag Neg for Influ A (Neg) Influenza Type B Ag Neg for Influ B (Neg) ECG Data Attestation: I personally reviewed and interpreted this ECG as follows: Indication: SOB/dyspnea Rate (beats per minute): 111 Rhythm: sinus tachycardia Findings: + LBBB; no ectopy Comparison ECG Date: from (04/09/2017) Change: no significant change Blood Pressure Blood Pressure Findings: Normal blood pressure MDM Narrative The patient is a 67-year-old female who presented to the emergency department for an evaluation of difficulty breathing. The patient had laboratory and radiographic studies done at the [facility]. She was found to be significantly hypoxic as well as signs of pulmonary edema on chest x-ray. The patient was treated with Lasix in the emergency department. I discussed her case with the on-call [facility] hospitalist. They have agreed to evaluate the patient in the emergency department for further management and disposition. The patient's condition improved with Lasix and supplemental oxygen. She continued to have severe symptoms especially with any ambulation. Impression & Plan Pulmonary edema, Hypoxia Discharge Plan Visit Data *Final* Discharge Date/Time: 05/09/18 14:57 Chief Complaint: Cardiac Assessment Stated Complaint: CHF-CX DONE 05.09.18 RT PLEURAL EFFUSION ED Provider: Alireza Hendricks Discharge Problem: Pulmonary edema, Hypoxia Patient Disposition: Admitted As Inpatient Discharge Instructions Interventions: ED Discharge Assessment Last Done: 05/09/18 14:57 The scribe's documentation has been prepared under my direction and personally reviewed by me in its entirety. I confirm that the note above accurately reflects all work, treatment, procedures, and medical decision making performed by me.
--- NOTE | 2018-05-09 14:33 | History & Physical Report ---
Date of Service May 09, 2018 Assessment & Plan (1) Chronic diastolic CHF (congestive heart failure): Noted on CXR in the setting of holding home lasix dosing due to n/v Lasix in the ED, monitor Resume home lasix dosing tomorrow (2) Acute respiratory failure with hypoxia: Likely related to CHF exacerbation Nebs, mucomyst Will hold on steroids for now given no wheezing noted (3) Nausea & vomiting: Acute GE vs chemo reaction Monitor Cr WNL, will hold on further hydration given CHF Full liquid diet for now, ADAT (4) Small cell lung cancer: Ongoing chemo (5) Asthma: No current exacerbation Nebs to help prevent (6) HLD (hyperlipidemia): continue home meds (7) Atrial fibrillation: continue home meds Coumadin is 2.5mg every day unless called by [facility] to adjust (8) Hypothyroidism: continue home meds (9) GERD (gastroesophageal reflux disease): continue home meds (10) Anxiety: continue home meds PRN (11) CAD (coronary artery disease): Hx of stent/CABG Monitor (12) DVT prophylaxis: Therapeutic on coumadin (13) DM type 2 (diabetes mellitus, type 2): Diet controlled BS WNL in ED Monitor (14) Hodgkin lymphoma: Was tx for this in the 80s, no current issues (15) Tobacco use disorder: Working towards cessation Declines patch, will order PRN History of Present Illness Primary Care Provider: Saulo Arthur MD 67 y/o F who [facility] after having a CXR noted for CHF exacerbation. Pt states that she has not been feeling well for the last 4- 5 days. She has had n/v and not been able to take much PO due to this. She has taken a few bites here and there. Because of this she was concerned that she would get dehydrated if she took her lasix, so she has not been taking it the last few days. Pt regularly has SOB "here and there" but it has been worse the last few days, particularly last night. She also noted LE swelling. She called the Cancer [facility] to be seen today for IVF and when she got there was noted to be 79% on RA. CXR was done and noted for CHF exacerbation. Pt states she has been trying to use her rescue inhaler at home, but this has not helped her SOB. She states that she feels very congested and has been trying to take liquid mucomyst, but this is not helping with congestion/cough. She has been constipated the last few days. Pt denies fever, chest pain, abd pain, n/v, LE pain. Pt states she is still nauseated but no emesis in the ED. She feels her LE swelling is improved. Allergies Allergy/AdvReac Type Severity Reaction Status Date / Time meperidine Allergy Intermediate SWELLING Verified 02/22/18 17:41 acetaminophen Allergy Unknown ? Verified 02/22/18 17:41 atropine Allergy Unknown ? Verified 02/22/18 17:41 bee venom protein (honey bee) Allergy Unknown SWELLING Verified 02/22/18 17:41 cefaclor Allergy Unknown ? Verified 02/22/18 17:41 codeine Allergy Unknown ? Verified 02/22/18 17:41 dextromethorphan Allergy Unknown HALLUCINATI Verified 02/22/18 17:41 ON diphenoxylate Allergy Unknown ? Verified 02/22/18 17:41 doxylamine Allergy Unknown HALLUCINATI Verified 02/22/18 17:41 ON Gold Salts Allergy Unknown RASH Verified 02/22/18 17:41 iodine Allergy Unknown "D/T Verified 02/22/18 17:41 ALLERGY TO SHRIMP" lidocaine Allergy Unknown LETHARGY Verified 02/22/18 17:41 midazolam Allergy Unknown MUSCLE Verified 02/22/18 17:41 SPAMS AND HALLUCINATIONS morphine Allergy Unknown SWELLING Verified 02/22/18 17:41 Penicillins Allergy Unknown ? Verified 02/22/18 17:41 propantheline Allergy Unknown ? Verified 02/22/18 17:41 propoxyphene Allergy Unknown SWELLING Verified 02/22/18 17:41 pseudoephedrine Allergy Unknown HALLUCINATI Verified 02/22/18 17:41 ON shellfish derived Allergy Unknown ? Verified 02/22/18 17:41 shrimp Allergy Unknown THROAT Verified 02/22/18 17:41 SWELLS SHUT succinylcholine Allergy Unknown TOLD NEVER Verified 02/22/18 17:41 TO USE, NEICE SEVERELY ALLERGIC TO MEDS adhesive AdvReac Mild Steri-strip Verified 02/22/18 17:41 - blisters Ethanol Allergy Unknown HALLUCINATI Uncoded 02/22/18 17:41 ON TALWIN Allergy Unknown HIVES AND Uncoded 02/22/18 17:41 CONFUSION WALNUTS Allergy Unknown SWELLING Uncoded 02/22/18 17:41 Home Medications Home Medications Medication Instructions Recorded Confirmed Type albuterol sulfate [Ventolin HFA] 2 puff INHALATION Q6H PRN 12/22/17 02/22/18 History amoxicillin 2,000 mg PO DIRECTED 12/22/17 02/22/18 History aspirin 81 mg PO HS 12/22/17 02/22/18 History atorvastatin 80 mg PO HS 12/22/17 02/22/18 History azelastine 2 spray INTRANASAL Q12H 12/22/17 02/22/18 History baclofen 10 mg PO Q12 PRN 12/22/17 02/22/18 History cholecalciferol (vitamin D3) 2,000 unit PO QAM 12/22/17 02/22/18 History [Vitamin D3] diazepam [Valium] 5 mg PO TID PRN 12/22/17 02/22/18 History diphenhydramine HCl [Benadryl] 25 mg PO HS PRN 12/22/17 02/22/18 History docusate sodium 100 mg PO BID 12/22/17 02/22/18 History fluticasone [Flonase Allergy 1 spray INTRANASAL QAM 12/22/17 02/22/18 History Relief] fluticasone-salmeterol [Advair 1 inh INHALATION Q12H 12/22/17 02/22/18 History Diskus] folic acid 2 mg PO QAM 12/22/17 02/22/18 History furosemide 40 mg PO UD 12/22/17 02/22/18 History levothyroxine 112 mcg PO QAM 12/22/17 02/22/18 History loratadine 10 mg PO QAM 12/22/17 02/22/18 History magnesium oxide 400 mg PO Q12 12/22/17 02/22/18 History metoprolol succinate 100 mg PO QAM 12/22/17 02/22/18 History nitroglycerin [Nitrostat] 0.4 mg SUBLINGUAL DIRECTED PRN 12/22/17 02/22/18 History omeprazole 40 mg PO QAM 12/22/17 02/22/18 History potassium chloride [Klor-Con M20] 20 meq PO Q12 12/22/17 02/22/18 History ranitidine HCl [Zantac] 0 mg PO HS PRN 12/22/17 02/22/18 History warfarin 5 mg tablet See Label Instructions .ROUTE UD 02/07/18 02/22/18 History tab vitamin B complex [B-Complex] 1 tab PO QAM 02/22/18 02/22/18 History tramadol 50 - 100 mg PO Q6H #20 tab 03/03/18 Rx nystatin 5 ml PO QID #140 ml 03/04/18 Rx Past Med/Surg History Medical History Small cell lung cancer Acute myocardial infarction Atrial ectopic tachycardia GERD (gastroesophageal reflux disease) Hx of Hodgkins lymphoma Hypothyroid Pulmonary hemorrhage Upper GI bleed Surgical History Hx of cholecystectomy Hx of heart artery stent Hx of splenectomy S/P bronchoscopy with biopsy EBUS/[facility] bronch on 02/24/2018. 8.0ETT. MAC 3, grade 1 view. Patient reintubated postextubation (while still in operating room) for what appeared to be CO2 retention. Please see record for full details. Family History Sister Heart attack Other Family history non-contributory Social History marital status: Current Living Situation: Spouse current occupational status: retired Feels Safe at Home: Yes Smoking Status: Current every day smoker Cigarettes per Day: 10 Hx Alcohol Use: Yes Alcohol type: other Alcohol Intake Frequency: a few times a month Hx Substance Use: No Beliefs That Will Affect Care: Caodaism Caodaism Beliefs: Adventist Preferred Language: [place] Review of Systems Pertinent positives and negatives reviewed in HPI--all others negative Physical Exam 2 Vital Signs (Past 24 Hours): Last Vital Signs Temp 36.3 C L 05/09/18 12:55 Pulse 103 H 05/09/18 13:43 Resp 27 H 05/09/18 13:43 BP 99/77 L 05/09/18 13:40 Pulse Ox 93 05/09/18 13:45 Constitutional: WD/WN, vitals as above Eyes: normal visual anne by confrontation and + anicteric sclerae Neck: normal visual inspection and trachea midline Respiratory: normal respiratory effort; no respiratory distress Auscultation: + crackles upper airway congestion Cardiovascular: Rate/Rhythm: regular rate; + abnormal rhythm (irregular) Gastrointestinal (Abdomen): Inspection/Auscultation: abdomen not distended Percussion/Palpation: abdomen soft; abdomen nontender Musculoskeletal: Head/Neck/Chest: normocephalic and head atraumatic Trace LE edema, peripheral pulses intact Skin: no rashes, warm and dry Neurologic: awake; not confused Speech / Cognition: normal speech Psychiatric: A+Ox3, euthymic affect Results & Data Diagnostic Findings CXR: CHF Code Status & VTE Plan Code Status Full code VTE Prophylaxis Plan VTE Prophylaxis will be ordered: Yes _ (1) CAD (coronary artery disease) Coronary Disease-Associated Artery/Lesion type: [place] artery [place] vs. transplanted heart: [place] heart Associated angina: without angina Qualified Code(s): I25.10 - Atherosclerotic heart disease of [place] coronary artery without angina pectoris (2) Asthma Asthma severity: moderate Asthma persistence: persistent Asthma complication type: uncomplicated Qualified Code(s): J45.40 - Moderate persistent asthma, uncomplicated (3) HLD (hyperlipidemia) Hyperlipidemia type: unspecified Qualified Code(s): E78.5 - Hyperlipidemia, unspecified (4) Atrial fibrillation Atrial fibrillation type: chronic Qualified Code(s): I48.2 - Chronic atrial fibrillation (5) Hypothyroidism Hypothyroidism type: acquired Qualified Code(s): E03.9 - Hypothyroidism, unspecified
[2018-05-09] MEDS ORDERED: NITROGLYCERIN SL 0.4 MG/TAB TAB SL PRN (16:10)
[2018-05-09] MEDS ORDERED: NICOTINE 14 MG/24 HR PATCH TD PRN (16:10)
[2018-05-09] MEDS: WARFARIN SOD 2.5 MG TAB PO SCH (18:11)
[2018-05-09] MEDS: ALBUT/IPRATROP 3MG/0.5MG NEB 3 ML VIAL NEB SCH (19:07)
[2018-05-09] MEDS: ACETYLCYSTEINE 20% INHAL SOLN ***DISPENSED BY RESP. INH SCH (19:08)
[2018-05-09] MEDS: ATORVASTATIN 40 MG TAB PO SCH (20:43)
[2018-05-09] MEDS: ASPIRIN 81 MG ECTAB PO SCH (20:43)
[2018-05-09] MEDS: DOCUSATE SODIUM 100 MG CAP PO SCH (20:43)
[2018-05-09] MEDS: FLUTICASONE/SALMETEROL 250/50 (ADVAIR) 14 PUFF/1 INHALER INH SCH (20:43)
[2018-05-09] MEDS: POTASSIUM CHLORIDE 20 MEQ TABCR PO SCH (20:43)
[2018-05-09] MEDS: MAGNESIUM OXIDE 400 MG TAB PO SCH (20:44)
[2018-05-09] MEDS: ONDANSETRON INJ 2 MG/ML 2 ML VIAL IV PRN (21:57)
[2018-05-09] MEDS: HEPARIN 100 UNIT/ML 5ML FLUSH IV PRN (22:15)
[2018-05-10] MEDS: BACLOFEN 10 MG TAB PO PRN ×2 (01:09→22:10)
[2018-05-10 03:19] LABS: Appearance Urine Cloudy (Clear); Bacteria Urine Automated Negative (Negative); Bilirubin Urine Negative (Negative); Blood Urine Negative (Negative); Color Urine Yellow; Epithelial Cell Urine Auto >30 /lpf (0-5); Glucose Urine UA Negative (Negative); Ketones Urine Negative (Negative); Leukocyte Esterase Urine Trace (Negative); Nitrite Urine Negative (Negative); Protein Urine Negative (Negative); Specific Gravity Urine 1.019 (1.000-1.030); Urobilinogen Urine Negative (Negative); pH Urine 5.5 (4.5-7.5)
[2018-05-10] MEDS: ONDANSETRON INJ 2 MG/ML 2 ML VIAL IV PRN ×3 (05:04→17:57)
[2018-05-10] MEDS: HEPARIN 100 UNIT/ML 5ML FLUSH IV PRN ×4 (05:05→13:35)
[2018-05-10] MEDS: LEVOTHYROXINE SODIUM 112 MCG TABLET PO SCH (05:05)
[2018-05-10] MEDS: ALBUTEROL HFA 8 GM INHALER INH PRN (05:22)
[2018-05-10 06:16] LABS: Basophils # (auto) 0.04 K/uL (0-0.2); Basophils % (auto) 0.2 %; Eosinophils # (auto) 0.06 K/uL (0-0.5); Eosinophils % (auto) 0.3 %; Hematocrit (blood only) 32.5 % (37-47); Hemoglobin 10.8 g/dL (12.0-16.0); Immature Granulocytes # (auto) 0.36 K/uL (0.00-0.02); Lymphocytes # (auto) 1.66 K/uL (1.2-3.4); Lymphocytes % (auto) 9.3 %; Mean Corpuscular Hgb Conc 33.2 g/dL (32-36); Mean Corpuscular Volume 103.8 fL (80-100); Mean Platelet Volume 10.3 fL (7.4-10.4); Monocytes # (auto) 2.28 K/uL (0.11-0.59); Monocytes % (auto) 12.7 %; Neutrophils # (auto) 13.54 K/uL (1.4-6.5); Neutrophils % (auto) 75.5 %; Platelet Count 441 K/uL (130-400); RDW Coefficient of Variation 17.5 % (11.5-14.5); RDW Standard Deviation 64.2 fL (36.4-46.3); Red Blood Count 3.13 M/uL (4.2-5.4); White Blood Count 17.94 K/uL (4.8-10.8)
[2018-05-10 06:22] LABS: Prothrombin Time 28.7 Seconds (9.0-12.0)
[2018-05-10 06:49] LABS: BUN Creatinine Ratio 39.2 (10-20); Calcium 8.6 mg/dl (8.5-10.1); Creatinine Clr Calc Pharmacy 127.2 ml/min; Est GFR (African American) 131.4; Est GFR (Non-African American) 113.4; Magnesium 1.4 mg/dl (1.8-2.4); Phosphorus 3.1 mg/dl (2.5-4.9); Potassium 3.8 mmol/L (3.5-5.1)
[2018-05-10] MEDS: ALBUT/IPRATROP 3MG/0.5MG NEB 3 ML VIAL NEB SCH ×4 (07:25→19:22)
[2018-05-10] MEDS: ACETYLCYSTEINE 20% INHAL SOLN ***DISPENSED BY RESP. INH SCH ×2 (07:26→19:18)
[2018-05-10] MEDS: FLUTICASONE/SALMETEROL 250/50 (ADVAIR) 14 PUFF/1 INHALER INH SCH ×2 (08:25→21:28)
[2018-05-10] MEDS: FLUTICASONE PROPIONATE NA SPR 16 GM BTL SCH (08:26)
[2018-05-10] MEDS: LORATADINE 10 MG TAB PO SCH (08:26)
[2018-05-10] MEDS: DOCUSATE SODIUM 100 MG CAP PO SCH ×2 (08:26→21:25)
[2018-05-10] MEDS: FUROSEMIDE 40 MG TAB PO SCH (08:26)
[2018-05-10] MEDS: MAGNESIUM OXIDE 400 MG TAB PO SCH ×2 (08:26→21:25)
[2018-05-10] MEDS: POTASSIUM CHLORIDE 20 MEQ TABCR PO SCH ×2 (08:26→21:26)
[2018-05-10] MEDS: PANTOprazole 40 MG TAB PO SCH (08:27)
[2018-05-10] MEDS: METOPROLOL SUCC 50MG EXT REL TAB PO SCH (08:27)
[2018-05-10] MEDS: MAGNESIUM SULFATE / D5W 1 GM/100 ML BAG IV SCH ×2 (09:26→10:41)
[2018-05-10] MEDS ORDERED: PHARMACY GLYCEMIC MGMT CONSULT PRN (13:35)
[2018-05-10] MEDS ORDERED: GLUCOSE 40% GEL 15 GM TUBE PO PRN (14:12)
[2018-05-10] MEDS ORDERED: DEXTROSE 50% 50 ML SYRINGE IV PRN (14:12)
[2018-05-10] MEDS ORDERED: GLUCOSE 10 TABS/TUBE PO PRN (14:12)
[2018-05-10] MEDS ORDERED: CARBOHYDRATES FOR HYPOGLYCEMIA PO PRN (14:12)
[2018-05-10] MEDS ORDERED: GLUCAGON FOR INJ 1 MG VIAL SQ PRN (14:12)
--- NOTE | 2018-05-10 14:23 | Pharmacy Report ---
Pharmacy Glycemic Short Note 2 - Date of Service May 10, 2018 - Glycemic Short BSG Results (Last 24 hours): 05/09/18 05/09/18 05/10/18 16:53 20:31 05:32 Glucose 117 H POC Glucose 126 H 133 H 05/10/18 05/10/18 07:41 11:31 Glucose POC Glucose 170 H 234 H OUTPATIENT ANTIDIABETIC REGIMEN: * none - no h/o DM based on H&P ASSESSMENT: * Litzy is a 67 yr old female admitted with CHF exacerbation * No mention of h/o of diabetes. Most recent A1c of 6.1% from October 2017 indicates pre-diabetes. Updated A1c ordered for 05/11. * Both fasting and lunchtime BSG was elevated today. Patient is not receiving steroids, antibiotics, or dextrose containing fluids. * I will start her on correctional insulin with Novolog and a very conservative dose of Lantus that she will only receive tonight if BSG remains > 200 mg/dL. I am hesitant to order carb coverage for this patient given lack of DM diagnosis and patient not on steroids. PLAN FOR INPATIENT GLYCEMIC CONTROL: * Basal insulin * Lantus per scale SQ BID * 0 units for BSG 200 mg/dL or less * 7 units for BSG > 200 mg/dL * Bolus insulin * NovoLog per scale ACHS or Q6hrs while NPO * Goal Range: Low 120 mg/dL - High 160 mg/dL * Correction Factor: 30 mg/dL/unit * No carb ratio for now Thank you
[2018-05-10] MEDS ORDERED: FUROSEMIDE 40 MG in SYRINGE 0 ML IV ONE (17:45)
[2018-05-10] MEDS: ZINC SULFATE 220 MG CAPSULE PO SCH (17:46)
[2018-05-10] MEDS: VITAMIN B COMPLEX TAB PO SCH (17:47)
[2018-05-10] MEDS: CHOLECALCIFEROL 1,000 UNITS TAB PO SCH (17:47)
[2018-05-10] MEDS: FOLIC ACID 1 MG TAB PO SCH (17:48)
[2018-05-10] MEDS: WARFARIN SOD 2.5 MG TAB PO SCH (17:48)
[2018-05-10] MEDS: INSULIN ASPART 100 UNITS/ML 3 ML PEN SC SCH ×2 (18:29→21:33)
[2018-05-10] MEDS ORDERED: COUGH DROP (SUGAR FREE) LOZ 24 LOZ/1 BOX BUCCAL STA (19:26)
[2018-05-10] MEDS ORDERED: COUGH DROP (SUGAR FREE) LOZ 24 LOZ/1 BOX BUCCAL ONE (19:29)
[2018-05-10] MEDS: ATORVASTATIN 40 MG TAB PO SCH (21:25)
[2018-05-10] MEDS: ASPIRIN 81 MG ECTAB PO SCH (21:26)
[2018-05-10] MEDS: INSULIN GLARGINE SOLOSTAR 100 UNITS/ML 3 ML PEN SC SCH (22:01)
[2018-05-11] MEDS: ALBUTEROL HFA 8 GM INHALER INH PRN (03:09)
[2018-05-11] MEDS: ONDANSETRON INJ 2 MG/ML 2 ML VIAL IV PRN ×3 (03:14→18:13)
[2018-05-11] MEDS: HEPARIN 100 UNIT/ML 5ML FLUSH IV PRN ×4 (03:18→18:14)
[2018-05-11] MEDS: LEVOTHYROXINE SODIUM 112 MCG TABLET PO SCH (05:10)
[2018-05-11 06:08] LABS: INR 3.1 (0.9-1.1); Prothrombin Time 29.6 Seconds (9.0-12.0)
[2018-05-11 06:19] LABS: Estimated Average Glucose 143 mg/dl; Hemoglobin A1C 6.6 % (4.5-5.6)
[2018-05-11] MEDS: ALBUT/IPRATROP 3MG/0.5MG NEB 3 ML VIAL NEB SCH ×4 (07:08→19:13)
[2018-05-11] MEDS: ACETYLCYSTEINE 20% INHAL SOLN ***DISPENSED BY RESP. INH SCH ×2 (07:09→19:13)
--- NOTE | 2018-05-11 07:57 | Hospitalist Progress Note ---
Date of Service May 10, 2018 Assessment & Plan (1) Chronic diastolic CHF (congestive heart failure): Acute on chronic diastolic dysfunction Noted on CXR in the setting of holding home lasix dosing due to n/v Lasix in the ED, Ordered an additional IV lasix today on 05/10 While also continue her PO lasix. Will conitnue to monitor her clinically. (2) Acute respiratory failure with hypoxia: Likely related to CHF exacerbation Nebs, mucomyst Will hold on steroids for now given no wheezing noted; this likely is from volume overload. (3) Nausea & vomiting: Acute GE vs chemo reaction Monitor Cr WNL, will hold on further hydration given CHF Full liquid diet for now, ADAT (4) Small cell lung cancer: Ongoing chemo; poor prognosis. Patient states best case scenario with chemo she may have 2 years left to live (5) Asthma: No current exacerbation Nebs to help prevent (6) HLD (hyperlipidemia): continue home meds (7) Atrial fibrillation: continue home meds Coumadin is 2.5mg every day unless called by [facility] to adjust (8) Hypothyroidism: continue home meds (9) GERD (gastroesophageal reflux disease): continue home meds (10) Anxiety: continue home meds PRN (11) CAD (coronary artery disease): Hx of stent/CABG Monitor (12) DVT prophylaxis: Therapeutic on coumadin (13) DM type 2 (diabetes mellitus, type 2): Diet controlled BS WNL in ED Monitor (14) Hodgkin lymphoma: Was tx for this in the 80s, no current issues (15) Tobacco use disorder: Working towards cessation Declines patch, will order PRN Spent 35 minutes in management of patient. Subjective 67 yo female with history of small cell lung cancer. She states that she has a poor prognosis. She reports still feeling fatigued and short of breath. She also reports having a poor appetite. Patient denies any fever, chills, nausea, vomiting. Physical Exam 2 Vital Signs (Past 24 Hours): Last Vital Signs Temp 37.1 C 05/10/18 16:00 Pulse 95 H 05/10/18 16:00 Resp 20 05/10/18 16:00 BP 100/64 05/10/18 16:00 Pulse Ox 94 05/10/18 16:00 Physical Exam: Constitutional: WD/WN, vitals as above Eyes: normal visual anne by confrontation and + anicteric sclerae Neck: normal visual inspection and trachea midline Respiratory: normal respiratory effort; no respiratory distress Auscultation: + bilateral rales Cardiovascular: Rate/Rhythm: regular rate; + abnormal rhythm (irregular) Gastrointestinal (Abdomen): Inspection/Auscultation: abdomen not distended Percussion/Palpation: abdomen soft; abdomen nontender Musculoskeletal: Head/Neck/Chest: normocephalic and head atraumatic Trace LE edema, peripheral pulses intact Skin: no rashes, warm and dry Neurologic: awake; not confused Speech / Cognition: normal speech Psychiatric: A+Ox3, euthymic affect _ (1) Asthma Asthma severity: moderate Asthma persistence: persistent Asthma complication type: uncomplicated Qualified Code(s): J45.40 - Moderate persistent asthma, uncomplicated (2) HLD (hyperlipidemia) Hyperlipidemia type: unspecified Qualified Code(s): E78.5 - Hyperlipidemia, unspecified (3) Atrial fibrillation Atrial fibrillation type: chronic Qualified Code(s): I48.2 - Chronic atrial fibrillation (4) Hypothyroidism Hypothyroidism type: acquired Qualified Code(s): E03.9 - Hypothyroidism, unspecified (5) CAD (coronary artery disease) Coronary Disease-Associated Artery/Lesion type: [place] artery [place] vs. transplanted heart: [place] heart Associated angina: without angina Qualified Code(s): I25.10 - Atherosclerotic heart disease of [place] coronary artery without angina pectoris
[2018-05-11] MEDS: FLUTICASONE/SALMETEROL 250/50 (ADVAIR) 14 PUFF/1 INHALER INH SCH ×2 (08:18→21:42)
[2018-05-11] MEDS: DOCUSATE SODIUM 100 MG CAP PO SCH ×2 (08:19→21:43)
[2018-05-11] MEDS: POTASSIUM CHLORIDE 20 MEQ TABCR PO SCH ×2 (08:19→21:44)
[2018-05-11] MEDS: FLUTICASONE PROPIONATE NA SPR 16 GM BTL SCH (08:19)
[2018-05-11] MEDS: FUROSEMIDE 40 MG TAB PO SCH (08:19)
[2018-05-11] MEDS: LORATADINE 10 MG TAB PO SCH (08:19)
[2018-05-11] MEDS: FOLIC ACID 1 MG TAB PO SCH (08:19)
[2018-05-11] MEDS: VITAMIN B COMPLEX TAB PO SCH (08:20)
[2018-05-11] MEDS: ZINC SULFATE 220 MG CAPSULE PO SCH (08:20)
[2018-05-11] MEDS: CHOLECALCIFEROL 1,000 UNITS TAB PO SCH (08:20)
[2018-05-11] MEDS: MAGNESIUM OXIDE 400 MG TAB PO SCH ×2 (08:20→21:45)
[2018-05-11] MEDS: PANTOprazole 40 MG TAB PO SCH (08:20)
[2018-05-11] MEDS: METOPROLOL SUCC 50MG EXT REL TAB PO SCH (08:20)
[2018-05-11] MEDS: INSULIN GLARGINE SOLOSTAR 100 UNITS/ML 3 ML PEN SC SCH ×2 (08:21→21:00)
[2018-05-11] MEDS: INSULIN ASPART 100 UNITS/ML 3 ML PEN SC SCH ×4 (08:22→21:00)
[2018-05-11 08:23] LABS: Basophils # (auto) 0.03 K/uL (0-0.2); Basophils % (auto) 0.2 %; Eosinophils # (auto) 0.04 K/uL (0-0.5); Eosinophils % (auto) 0.3 %; Hematocrit (blood only) 31.6 % (37-47); Hemoglobin 10.7 g/dL (12.0-16.0); Immature Granulocytes # (auto) 0.24 K/uL (0.00-0.02); Immature Granulocytes % (auto) 1.5 %; Lymphocytes # (auto) 0.94 K/uL (1.2-3.4); Mean Corpuscular Hgb Conc 33.9 g/dL (32-36); Mean Corpuscular Volume 104.3 fL (80-100); Mean Platelet Volume 9.3 fL (7.4-10.4); Monocytes # (auto) 1.76 K/uL (0.11-0.59); Monocytes % (auto) 11.2 %; Neutrophils # (auto) 12.77 K/uL (1.4-6.5); Neutrophils % (auto) 80.8 %; Platelet Count 452 K/uL (130-400); RDW Coefficient of Variation 17.2 % (11.5-14.5); RDW Standard Deviation 63.2 fL (36.4-46.3); Red Blood Count 3.03 M/uL (4.2-5.4); White Blood Count 15.78 K/uL (4.8-10.8)
[2018-05-11] MEDS: POLYETHYLENE (MIRALAX) 17 GM PACK PO SCH (08:26)
[2018-05-11 08:27] LABS: BUN Creatinine Ratio 39.1 (10-20); Calcium 8.5 mg/dl (8.5-10.1); Creatinine Clr Calc Pharmacy 138.5 ml/min; Est GFR (African American) 135.4; Est GFR (Non-African American) 116.8; Magnesium 1.7 mg/dl (1.8-2.4); Phosphorus 3.2 mg/dl (2.5-4.9); Potassium 3.5 mmol/L (3.5-5.1)
--- NOTE | 2018-05-11 13:00 | Pharmacy Report ---
Pharmacy Glycemic Short Note 2 - Date of Service May 11, 2018 - Glycemic Short BSG Results (Last 24 hours): 05/10/18 05/10/18 05/11/18 16:34 20:31 05:37 Glucose 108 H POC Glucose 79 215 H 05/11/18 05/11/18 07:42 12:12 Glucose POC Glucose 129 H 176 H OUTPATIENT ANTIDIABETIC REGIMEN: * none - diet controlled * A1c 6.6% 05/11/18 ASSESSMENT: * Litzy is a 67 yr old female admitted with CHF exacerbation * No mention of h/o of diabetes. Most recent A1c of 6.6% is diagnostic for diabetes based on ADA guidelines. * Litzy received 7 units of Lantus and 1 unit of correctional insulin yesterday. * I will decrease Lantus dose to 5 units (only if BSG is > 180 mg/dL). I do not anticipate her needing ongoing basal insulin. * If post prandial BSGs trend up throughout the day, carb coverage will be added on 05/12 PLAN FOR INPATIENT GLYCEMIC CONTROL: * Basal insulin - decrease * Lantus per scale SQ BID * 0 units for BSG 180 mg/dL or less * 5 units for BSG > 180 mg/dL * Bolus insulin * NovoLog per scale ACHS or Q6hrs while NPO * Goal Range: Low 120 mg/dL - High 160 mg/dL * Correction Factor: 30 mg/dL/unit * No carb ratio for now PLAN FOR DISCHARGE: * A1c of 6.6% is diagnostic of diabetes - pt is diet controlled * May consider addition of metformin ER 500 mg Po daily with dinner Thank you
[2018-05-11] MEDS: WARFARIN SOD 2.5 MG TAB PO SCH (16:01)
[2018-05-11] MEDS: diazePAM 5 MG TABLET PO PRN (21:40)
[2018-05-11] MEDS: ACETAMINOPHEN 325 MG TAB PO PRN (21:42)
[2018-05-11] MEDS: MAGNESIUM HYDROXIDE SUSP 30 ML UDC PO PRN (21:42)
[2018-05-11] MEDS: ASPIRIN 81 MG ECTAB PO SCH (21:44)
[2018-05-11] MEDS: ATORVASTATIN 40 MG TAB PO SCH (21:44)
--- NOTE | 2018-05-11 23:58 | Hospitalist Progress Note ---
Date of Service May 11, 2018 Assessment & Plan (1) Chronic diastolic CHF (congestive heart failure): Acute on chronic diastolic dysfunction Noted on CXR in the setting of holding home lasix dosing due to n/v Lasix in the ED, Ordered an additional IV lasix today on 05/10 Patient does not want a lasix dose today on 05/11 as she wants to rest overnight. Will resume in AM. Patient will also be on her PO lasix. While also continue her PO lasix. Will conitnue to monitor her clinically. (2) Acute respiratory failure with hypoxia: Likely related to CHF exacerbation Nebs, mucomyst Will hold on steroids for now given no wheezing noted; this likely is from volume overload. (3) Nausea & vomiting: Acute GE vs chemo reaction Monitor Cr WNL, will hold on further hydration given CHF Full liquid diet for now, ADAT (4) Small cell lung cancer: Ongoing chemo; poor prognosis. Patient states best case scenario with chemo she may have 2 years left to live (5) Asthma: No current exacerbation Nebs to help prevent (6) HLD (hyperlipidemia): continue home meds (7) Atrial fibrillation: continue home meds Coumadin is 2.5mg every day unless called by [facility] to adjust (8) Hypothyroidism: continue home meds (9) GERD (gastroesophageal reflux disease): continue home meds (10) Anxiety: continue home meds PRN (11) CAD (coronary artery disease): Hx of stent/CABG Monitor (12) DVT prophylaxis: Therapeutic on coumadin (13) DM type 2 (diabetes mellitus, type 2): Diet controlled BS WNL in ED Monitor (14) Hodgkin lymphoma: Was tx for this in the 80s, no current issues (15) Tobacco use disorder: Working towards cessation Declines patch, will order PRN Spent 25 minutes in management of patient. Subjective 67 yo female with history of small cell lung cancer. She states that she has a poor prognosis. She reports still having fatigue but is breathing better. Her appetites remains poor. Patient denies any fever, chills, nausea, vomiting. Physical Exam 2 Vital Signs (Past 24 Hours): Last Vital Signs Temp 36.9 C 05/11/18 23:06 Pulse 105 H 05/11/18 23:06 Resp 18 05/11/18 23:06 BP 114/69 05/11/18 23:06 Pulse Ox 90 02/13/19 23:06 Physical Exam: Constitutional: WD/WN, vitals as above Eyes: normal visual anne by confrontation and + anicteric sclerae Neck: normal visual inspection and trachea midline Respiratory: normal respiratory effort; no respiratory distress Auscultation: + bilateral rales with wheezing. Cardiovascular: Rate/Rhythm: regular rate; + abnormal rhythm (irregular) Gastrointestinal (Abdomen): Inspection/Auscultation: abdomen not distended Percussion/Palpation: abdomen soft; abdomen nontender Musculoskeletal: Head/Neck/Chest: normocephalic and head atraumatic Trace LE edema, peripheral pulses intact Skin: no rashes, warm and dry Neurologic: awake; not confused Speech / Cognition: normal speech Psychiatric: A+Ox3, euthymic affect _ (1) CAD (coronary artery disease) Associated angina: without angina Coronary Disease-Associated Artery/Lesion type: [place] artery [place] vs. transplanted heart: [place] heart Qualified Code (s): I25.10 - Atherosclerotic heart disease of [place] coronary artery without angina pectoris (2) Atrial fibrillation Atrial fibrillation type: chronic Qualified Code(s): I48.2 - Chronic atrial fibrillation (3) HLD (hyperlipidemia) Hyperlipidemia type: unspecified Qualified Code(s): E78.5 - Hyperlipidemia, unspecified (4) Hypothyroidism Hypothyroidism type: acquired Qualified Code(s): E03.9 - Hypothyroidism, unspecified (5) Asthma Asthma complication type: uncomplicated Asthma persistence: persistent Asthma severity: moderate Qualified Code(s): J45.40 - Moderate persistent asthma, uncomplicated
[2018-05-12] MEDS: ACETAMINOPHEN 325 MG TAB PO PRN ×2 (01:59→08:20)
[2018-05-12] MEDS: ONDANSETRON INJ 2 MG/ML 2 ML VIAL IV PRN ×4 (02:49→21:02)
[2018-05-12] MEDS: HEPARIN 100 UNIT/ML 5ML FLUSH IV PRN ×4 (02:51→21:02)
[2018-05-12 06:28] LABS: INR 5.1 (0.9-1.1); Prothrombin Time 46.8 Seconds (9.0-12.0)
[2018-05-12] MEDS: LEVOTHYROXINE SODIUM 112 MCG TABLET PO SCH (06:37)
[2018-05-12] MEDS: ALBUT/IPRATROP 3MG/0.5MG NEB 3 ML VIAL NEB SCH ×4 (07:18→19:26)
[2018-05-12] MEDS: ACETYLCYSTEINE 20% INHAL SOLN ***DISPENSED BY RESP. INH SCH ×2 (07:18→19:26)
[2018-05-12] MEDS: POLYETHYLENE (MIRALAX) 17 GM PACK PO SCH (08:20)
[2018-05-12] MEDS: DOCUSATE SODIUM 100 MG CAP PO SCH ×2 (08:25→20:45)
[2018-05-12] MEDS: METOPROLOL SUCC 50MG EXT REL TAB PO SCH (08:25)
[2018-05-12] MEDS: PANTOprazole 40 MG TAB PO SCH (08:25)
[2018-05-12] MEDS: LORATADINE 10 MG TAB PO SCH (08:25)
[2018-05-12] MEDS: CHOLECALCIFEROL 1,000 UNITS TAB PO SCH (08:26)
[2018-05-12] MEDS: FOLIC ACID 1 MG TAB PO SCH (08:26)
[2018-05-12] MEDS: FLUTICASONE PROPIONATE NA SPR 16 GM BTL SCH (08:26)
[2018-05-12] MEDS: FLUTICASONE/SALMETEROL 250/50 (ADVAIR) 14 PUFF/1 INHALER INH SCH ×2 (08:26→20:44)
[2018-05-12] MEDS: ZINC SULFATE 220 MG CAPSULE PO SCH (08:27)
[2018-05-12] MEDS: FUROSEMIDE 40 MG TAB PO SCH (08:27)
[2018-05-12] MEDS: VITAMIN B COMPLEX TAB PO SCH (08:27)
[2018-05-12] MEDS: MAGNESIUM OXIDE 400 MG TAB PO SCH ×2 (08:27→20:46)
[2018-05-12] MEDS: POTASSIUM CHLORIDE 20 MEQ TABCR PO SCH (08:27)
[2018-05-12] MEDS: INSULIN GLARGINE SOLOSTAR 100 UNITS/ML 3 ML PEN SC SCH ×2 (08:39→21:00)
[2018-05-12] MEDS: INSULIN ASPART 100 UNITS/ML 3 ML PEN SC SCH ×4 (08:39→21:00)
[2018-05-12] MEDS ORDERED: FUROSEMIDE 40 MG in SYRINGE 0 ML IV ONE (10:00)
[2018-05-12 10:14] LABS: Hemoglobin 10.4 g/dL (12.0-16.0); Mean Corpuscular Hgb Conc 33.5 g/dL (32-36); Mean Corpuscular Volume 104.4 fL (80-100); Mean Platelet Volume 9.3 fL (7.4-10.4); Platelet Count 424 K/uL (130-400); RDW Coefficient of Variation 16.9 % (11.5-14.5); RDW Standard Deviation 63.4 fL (36.4-46.3); Red Blood Count 2.97 M/uL (4.2-5.4); White Blood Count 24.12 K/uL (4.8-10.8)
[2018-05-12 10:31] LABS: Basophils # (auto) 0.03 K/uL (0-0.2); Basophils % (auto) 0.1 %; Eosinophils # (auto) 0.01 K/uL (0-0.5); Immature Granulocytes # (auto) 0.13 K/uL (0.00-0.02); Immature Granulocytes % (auto) 0.5 %; Lymphocytes # (auto) 0.66 K/uL (1.2-3.4); Lymphocytes % (auto) 2.7 %; Monocytes # (auto) 2.41 K/uL (0.11-0.59); Neutrophils # (auto) 20.88 K/uL (1.4-6.5); Neutrophils % (auto) 86.7 %; Toxic Granulation 1+
[2018-05-12 10:46] LABS: BUN Creatinine Ratio 39.5 (10-20); Calcium 8.5 mg/dl (8.5-10.1); Creatinine Clr Calc Pharmacy 120.3 ml/min; Est GFR (African American) 129.1; Est GFR (Non-African American) 111.4; Potassium 4.4 mmol/L (3.5-5.1)
[2018-05-12] MEDS ORDERED: DRONABINOL 2.5 MG CAP PO STA (14:14)
[2018-05-12] MEDS: diazePAM 5 MG TABLET PO PRN (20:44)
[2018-05-12] MEDS: ATORVASTATIN 40 MG TAB PO SCH (20:45)
[2018-05-12] MEDS: ASPIRIN 81 MG ECTAB PO SCH (20:46)
[2018-05-12] MEDS: DRONABINOL 2.5 MG CAP PO SCH (20:53)
--- NOTE | 2018-05-12 23:05 | Hospitalist Progress Note ---
Date of Service May 12, 2018 Assessment & Plan (1) Chronic diastolic CHF (congestive heart failure): Acute on chronic diastolic dysfunction Noted on CXR in the setting of holding home lasix dosing due to n/v Lasix in the ED, Ordered an additional IV lasix today on 05/12 Patient will also be on her PO lasix. While also continue her PO lasix. Will conitnue to monitor her clinically. (2) Acute respiratory failure with hypoxia: Likely related to CHF exacerbation Nebs, mucomyst Will hold on steroids for now given no wheezing noted; this likely is from volume overload. (3) Nausea & vomiting: Acute GE vs chemo reaction Monitor Cr WNL, will hold on further hydration given CHF Full liquid diet for now, ADAT (4) Small cell lung cancer: Ongoing chemo; poor prognosis. Patient states best case scenario with chemo she may have 2 years left to live will need onc followup before discharge. (5) Asthma: No current exacerbation Nebs to help prevent (6) HLD (hyperlipidemia): continue home meds (7) Atrial fibrillation: continue home meds Coumadin is 2.5mg every day unless called by [facility] to adjust (8) Hypothyroidism: continue home meds (9) GERD (gastroesophageal reflux disease): continue home meds (10) Anxiety: continue home meds PRN (11) CAD (coronary artery disease): Hx of stent/CABG Monitor (12) DVT prophylaxis: Therapeutic on coumadin (13) DM type 2 (diabetes mellitus, type 2): Diet controlled BS WNL in ED Monitor (14) Hodgkin lymphoma: Was tx for this in the 80s, no current issues (15) Tobacco use disorder: Working towards cessation Declines patch, will order PRN Spent 25 minutes in management of patient. Subjective 67 yo female with history of small cell lung cancer. Patient reports she had a rough morning and was very short of breath at rest. Tis improved with her diuretic. Patient inquires that she would like to see onc prior to discharge as it is hard for her to attend outpatient visits as she does not have a ride.A friend is only able to drive her to treatment appointments once a week. Physical Exam 2 Vital Signs (Past 24 Hours): Last Vital Signs Temp 36.5 C 05/12/18 21:58 Pulse 100 H 05/12/18 21:58 Resp 16 05/12/18 21:58 BP 116/66 05/12/18 21:58 Pulse Ox 92 05/12/18 21:58 Physical Exam: Constitutional: WD/WN, vitals as above Eyes: normal visual anne by confrontation and + anicteric sclerae Neck: normal visual inspection and trachea midline Respiratory: normal respiratory effort; no respiratory distress Auscultation: + bilateral rales with wheezing.(no change) Cardiovascular: Rate/Rhythm: regular rate; + abnormal rhythm (irregular) Gastrointestinal (Abdomen): Inspection/Auscultation: abdomen not distended Percussion/Palpation: abdomen soft; abdomen nontender Musculoskeletal: Head/Neck/Chest: normocephalic and head atraumatic Trace LE edema, peripheral pulses intact Skin: no rashes, warm and dry Neurologic: awake; not confused Speech / Cognition: normal speech Psychiatric: A+Ox3, euthymic affect _ (1) CAD (coronary artery disease) Associated angina: without angina Coronary Disease-Associated Artery/Lesion type: [place] artery [place] vs. transplanted heart: [place] heart Qualified Code (s): I25.10 - Atherosclerotic heart disease of [place] coronary artery without angina pectoris (2) Atrial fibrillation Atrial fibrillation type: chronic Qualified Code(s): I48.2 - Chronic atrial fibrillation (3) HLD (hyperlipidemia) Hyperlipidemia type: unspecified Qualified Code(s): E78.5 - Hyperlipidemia, unspecified (4) Hypothyroidism Hypothyroidism type: acquired Qualified Code(s): E03.9 - Hypothyroidism, unspecified (5) Asthma Asthma complication type: uncomplicated Asthma persistence: persistent Asthma severity: moderate Qualified Code(s): J45.40 - Moderate persistent asthma, uncomplicated
[2018-05-13] MEDS: ACETAMINOPHEN 325 MG TAB PO PRN ×2 (01:02→14:53)
[2018-05-13] MEDS: BACLOFEN 10 MG TAB PO PRN (04:19)
[2018-05-13 05:51] LABS: Hemoglobin 10.6 g/dL (12.0-16.0); Mean Corpuscular Hgb Conc 33.1 g/dL (32-36); Mean Corpuscular Volume 105.3 fL (80-100); Platelet Count 461 K/uL (130-400); RDW Coefficient of Variation 16.7 % (11.5-14.5); Red Blood Count 3.04 M/uL (4.2-5.4); White Blood Count 24.42 K/uL (4.8-10.8)
[2018-05-13 06:25] LABS: Basophils # (auto) 0.04 K/uL (0-0.2); Basophils % (auto) 0.2 %; Eosinophils # (auto) 0.01 K/uL (0-0.5); Immature Granulocytes # (auto) 0.14 K/uL (0.00-0.02); Immature Granulocytes % (auto) 0.6 %; Lymphocytes # (auto) 1.16 K/uL (1.2-3.4); Lymphocytes % (auto) 4.8 %; Monocytes # (auto) 2.67 K/uL (0.11-0.59); Monocytes % (auto) 10.9 %; Neutrophils % (auto) 83.5 %
[2018-05-13 06:27] LABS: Prothrombin Time 33.4 Seconds (9.0-12.0)
[2018-05-13 06:36] LABS: INR 3.6 (0.9-1.1)
[2018-05-13 06:42] LABS: BUN Creatinine Ratio 45.8 (10-20); Creatinine Clr Calc Pharmacy 120.3 ml/min; Est GFR (African American) 129.1; Est GFR (Non-African American) 111.4; Potassium 4.2 mmol/L (3.5-5.1)
[2018-05-13] MEDS: ALBUT/IPRATROP 3MG/0.5MG NEB 3 ML VIAL NEB SCH ×4 (07:06→19:50)
[2018-05-13] MEDS: ACETYLCYSTEINE 20% INHAL SOLN ***DISPENSED BY RESP. INH SCH ×2 (07:06→19:50)
[2018-05-13] MEDS: DOCUSATE SODIUM 100 MG CAP PO SCH ×2 (07:47→21:53)
[2018-05-13] MEDS: LEVOTHYROXINE SODIUM 112 MCG TABLET PO SCH (07:47)
[2018-05-13] MEDS: CHOLECALCIFEROL 1,000 UNITS TAB PO SCH (07:48)
[2018-05-13] MEDS: PANTOprazole 40 MG TAB PO SCH (07:48)
[2018-05-13] MEDS: METOPROLOL SUCC 50MG EXT REL TAB PO SCH (07:48)
[2018-05-13] MEDS: MAGNESIUM OXIDE 400 MG TAB PO SCH ×2 (07:49→21:54)
[2018-05-13] MEDS: LORATADINE 10 MG TAB PO SCH (07:49)
[2018-05-13] MEDS: FOLIC ACID 1 MG TAB PO SCH (07:49)
[2018-05-13] MEDS: VITAMIN B COMPLEX TAB PO SCH (07:49)
[2018-05-13] MEDS: ZINC SULFATE 220 MG CAPSULE PO SCH (07:49)
[2018-05-13] MEDS: FLUTICASONE PROPIONATE NA SPR 16 GM BTL SCH (07:50)
[2018-05-13] MEDS: FLUTICASONE/SALMETEROL 250/50 (ADVAIR) 14 PUFF/1 INHALER INH SCH ×2 (07:50→21:52)
[2018-05-13] MEDS: FUROSEMIDE 60 MG in SYRINGE 0 ML IV SCH (07:50)
[2018-05-13] MEDS: POLYETHYLENE (MIRALAX) 17 GM PACK PO SCH (07:51)
[2018-05-13] MEDS: INSULIN GLARGINE SOLOSTAR 100 UNITS/ML 3 ML PEN SC SCH (07:51)
[2018-05-13] MEDS: INSULIN ASPART 100 UNITS/ML 3 ML PEN SC SCH ×2 (07:53→14:16)
[2018-05-13] MEDS: DRONABINOL 2.5 MG CAP PO SCH ×3 (07:58→21:54)
[2018-05-13] MEDS: HEPARIN 100 UNIT/ML 5ML FLUSH IV PRN ×2 (07:58→14:21)
--- NOTE | 2018-05-13 09:01 | Hospitalist Progress Note ---
Date of Service May 13, 2018 Assessment & Plan (1) Chronic diastolic CHF (congestive heart failure): Acute on chronic diastolic dysfunction Noted on CXR in the setting of holding home lasix dosing due to n/v Lasix in the ED, Patient not responding to lasix. Order VBG showed respiratory failure with hypercapnea. X-ray shows no improvement with pleural effusions. D/W Dr. Steele. Will obtain thoracocenthesis. will continue to monitor clinically. (2) Acute respiratory failure with hypoxia: Patient appears to be also having hypercapnea. Will hold off bipap as to see how patient responds to thoracocenthesis. Likely related to CHF exacerbation, vs exudative. Nebs, mucomyst Will hold on steroids for now given no wheezing noted; this likely is from volume overload. (3) Nausea & vomiting: Acute GE vs chemo reaction Monitor Cr WNL, will hold on further hydration given CHF Full liquid diet for now, ADAT (4) Small cell lung cancer: Ongoing chemo; poor prognosis. Patient states best case scenario with chemo she may have 2 years left to live will need onc followup before discharge. (5) Asthma: No current exacerbation Nebs to help prevent (6) HLD (hyperlipidemia): continue home meds (7) Atrial fibrillation: continue home meds Coumadin is 2.5mg every day unless called by [facility] to adjust (8) Hypothyroidism: continue home meds (9) GERD (gastroesophageal reflux disease): continue home meds (10) Anxiety: continue home meds PRN (11) CAD (coronary artery disease): Hx of stent/CABG Monitor (12) DVT prophylaxis: Therapeutic on coumadin (13) DM type 2 (diabetes mellitus, type 2): Diet controlled BS WNL in ED Monitor (14) Hodgkin lymphoma: Was tx for this in the 80s, no current issues (15) Tobacco use disorder: Working towards cessation Declines patch, will order PRN Spent 55 minutes in management of patient. (16) Severe protein-calorie malnutrition: Subjective 67 yo female reports not feeling any better today. She in fact states she feels worse. Her family is at bedside. I explained to them that patient is not responding to diuretics. May require thoracocenthesis. Physical Exam 2 Vital Signs (Past 24 Hours): Last Vital Signs Temp 36.3 C L 05/13/18 07:00 Pulse 102 H 05/13/18 07:00 Resp 15 05/13/18 07:07 BP 123/69 05/13/18 07:00 Pulse Ox 92 05/13/18 07:46 Physical Exam: Constitutional: WD/WN, vitals as above Eyes: normal visual anne by confrontation and + anicteric sclerae Neck: trachea midline Respiratory: normal respiratory effort; no respiratory distress Auscultation: + bilateral rales with wheezing.(no change) Cardiovascular: Rate/Rhythm: regular rate; + abnormal rhythm (irregular) Gastrointestinal (Abdomen): Inspection/Auscultation: abdomen not distended Percussion/Palpation: abdomen soft; abdomen nontender Musculoskeletal: Head/Neck/Chest: normocephalic and head atraumatic Trace LE edema, peripheral pulses intact Skin: no rashes, warm and dry Neurologic: awake; not confused Speech / Cognition: normal speech Psychiatric: A+Ox3, euthymic affect _ (1) CAD (coronary artery disease) Associated angina: without angina Coronary Disease-Associated Artery/Lesion type: [place] artery [place] vs. transplanted heart: [place] heart Qualified Code (s): I25.10 - Atherosclerotic heart disease of [place] coronary artery without angina pectoris (2) Atrial fibrillation Atrial fibrillation type: chronic Qualified Code(s): I48.2 - Chronic atrial fibrillation (3) HLD (hyperlipidemia) Hyperlipidemia type: unspecified Qualified Code(s): E78.5 - Hyperlipidemia, unspecified (4) Hypothyroidism Hypothyroidism type: acquired Qualified Code(s): E03.9 - Hypothyroidism, unspecified (5) Asthma Asthma complication type: uncomplicated Asthma persistence: persistent Asthma severity: moderate Qualified Code(s): J45.40 - Moderate persistent asthma, uncomplicated
[2018-05-13 14:37] LABS: Base Excess VBG 15.1 mEq/L; HCO3 VBG 42 mmol/L; PCO2 VBG 62 mmHg (38-50); PO2 VBG 27 mmHg; pH VBG 7.45 (7.36-7.41)
[2018-05-13 14:39] LABS: Oxygen Saturation VBG < 60.0 %
--- NOTE | 2018-05-13 14:51 | Pharmacy Report ---
Pharmacy Glycemic Sign Off Nt - Date of Service May 13, 2018 - Assessment & Plan ASSESSMENT: * Pharmacy was consulted by Dr Hall on 05/10/18 for glycemic control and to write orders per [facility] inpatient glycemic control protocol. * Major changes made by pharmacy to antidiabetic regimen include: * patient received a one time dose of Lantus 7 units on 05/10 - no further Lantus has been given and fasting BSG remains at goal * patient has not needed carbohydrate coverage - she has been well managed with Novolog per correction factor only * Patient has been receiving 1-3 units of insulin per day for adequate glycemic control * BSGs ranging 110 - 173 mg/dl over the past 24 hours * Regimen has only required minor adjustments over the past 48hrs to achieve this level of control * Do not anticipate further changes in patient status that would quickly deteriorate glycemic control (i.e. patient to be NPO for upcoming procedure, steroids tapering, starting tube feedings, etc). * Please see recommendations for outpatient antidiabetic regimen below. PLAN FOR INPATIENT GLYCEMIC CONTROL: No changes needed to current regimen. * Discontinue Novolog * Pharmacy is signing off of glycemic consult and will no longer be making adjustments to inpatient regimen. Please feel free to re-consult if needed. Thank you. DISCHARGE RECOMMENDATIONS: * A1c 6.6 % on 05/11/18 * Patient is diet controlled at home - may consider addition of metformin ER 500 mg po daily (as long as patient does not experience N/V with current chemo regimen)
--- NOTE | 2018-05-13 14:52 | XRay Report ---
XR chest 1V portable CLINICAL HISTORY: thoracentesis COMPARISON STUDY: Chest CT February 22, 2018. Chest radiograph May 09, 2018. FINDINGS: There are median sternotomy wires and upper abdominal surgical clips. Left subclavian Infus e-a-Port is in place. A moderate left pleural effusion is again noted. Right pleural effusion has sig nificantly decreased in size. There is no pneumothorax. Pulmonary nodules are again noted. There is p ulmonary vascular congestion. IMPRESSION: No pneumothorax following thoracentesis. Interval decrease in size of a right pleural effusion. Other torrez, unchanged appearance of the chest. Electronically signed by: Nguyễn Thacker M.D. 05/13/2018 2:51 PM
[2018-05-13 15:00] LABS: Phosphorus 2.8 mg/dl (2.5-4.9)
[2018-05-13] MEDS: WARFARIN SOD 2.5 MG TAB PO SCH (16:00)
[2018-05-13 16:43] LABS: Glucose Pleural Fluid 141 mg/dl
[2018-05-13 16:48] LABS: LDH Pleural Fluid 146 U/L; Total Protein Pleural Fluid 3.2 g/dl
[2018-05-13 17:30] LABS: Appearance Pleural Fluid CLOUDY; Color Pleural Fluid STRAW; Mononuclear WBC Pleural 57.9 %; Polynuclear WBC Pleural 42.1 %; RBC Pleural Fluid (A) 9000 /uL; Source Pleural Fluid RIGHT LUNG; WBC Pleural Fluid (A) 394 /uL
[2018-05-13] MEDS: LIDOCAINE 5% 1 PATCH TD SCH ×2 (21:51→21:52)
[2018-05-13] MEDS: CLOTRIMAZOLE 10 MG TROCHE BUCCAL SCH ×3 (21:52→23:19)
[2018-05-13] MEDS: ASPIRIN 81 MG ECTAB PO SCH (21:54)
[2018-05-13] MEDS: ATORVASTATIN 40 MG TAB PO SCH (21:54)
[2018-05-13] MEDS: diazePAM 5 MG TABLET PO PRN (21:55)
--- NOTE | 2018-05-14 00:16 | Operative Report ---
DATE OF OPERATION: 05/13/2018 PREOPERATIVE DIAGNOSES: 1. Bilateral pleural effusions, right greater than left. 2. History of lymphoma. 3. Currently being treated for metastatic lung carcinoma. 4. Hypoxia. POSTOPERATIVE DIAGNOSES: 1. Bilateral pleural effusions, right greater than left. 2. History of lymphoma. 3. Currently being treated for metastatic lung carcinoma. 4. Hypoxia. PROCEDURE: Right thoracentesis under ultrasound guidance. SURGEON: Walt Steele MD NUTRITIONAL SERVICES HOST: [place] ANESTHESIA: Local. DESCRIPTION OF THE PROCEDURE: This patient is a 67-year-old female whom I know quite well. She had a history of lymphoma treated with radiation and developed a benign pleural effusion in her right side which was quite significant and we had a PleurX catheter in for an extended period of time before it stopped draining, we pulled it out. She did well with that owing to return with lymphadenopathy and I did a biopsy of this mediastinal lymph nodes. It turns out she has a lung carcinoma which is metastatic to her lymph nodes. The patient has been undergoing treatment with her last chemotherapy 3 weeks ago. The patient presents now short of breath and has continued to worsen during her hospitalization. I was asked to see her because her chest x-ray shows pleural effusions which are not improving. Her right was greater than left. Her INR was gapped; however, I felt that a thoracentesis with ultrasound guidance would be safer when we did discuss it preoperatively. The patient was at bedside on 05/13/2018. The patient was sitting up and requiring oxygen. Ultrasounds showed that she had a large amount of fairly homogenous fluid. This site was marked for a good window and she was prepped and draped in usual sterile fashion. After appropriate timeout had been called, a 25-gauge needle and 1% Xylocaine was used to anesthetize skin and subcutaneous tissues and clear fluid was drained back. A large bore needle was used to go over the rib into the pleural cavity. We got clear yellow fluid back. Guidewire was inserted and needle removed. Introducer sheath was used to slightly dilate the insertion tract and removed and triple lumen catheter was slid in 17 cm and the guidewire removed. 1350 mL of a rust colored fluid was drained. The patient started complaining of reexpansion pain so we stopped. I removed this. She did not have any bleeding from the site or in the pleural fluid. She tolerated it very well. Antimicrobial dressing was placed. Chest x-ray looks good. Postoperatively, there is no evidence of pneumothorax. I attest to the content of the Intraoperative Record and any orders documented therein. Any exception s are noted below.
--- NOTE | 2018-05-14 01:00 | Consultation Report ---
DATE OF CONSULTATION: 05/13/2018 REASON FOR CONSULTATION: Bilateral pleural effusions. HISTORY OF PRESENT ILLNESS: Litzy Preston is a 67-year-old female well known to me with multiple medical problems including history of lymphoma in the past, atrial fibrillation, hyperlipidemia, asthma, newly diagnosed small cell lung carcinoma for which she is undergoing chemotherapy, hypoxia, history of cigarette smoking, congestive heart failure, hypothyroidism, coronary artery disease, and other issues, who was admitted to the hospital 4 days ago with increasing shortness of breath and was found to have bilateral pleural effusions, right greater than left. We have a history of having had a PleurX catheter in this patient for an extended period of time on the right for a nonmalignant effusion. We eventually got this out. She presents now with increasing pleural effusions, right greater than left, and actually is uncomfortable and using her accessory muscles and is relatively hypoxic. I was asked to see her and to see whether or not a thoracentesis or even a PleurX catheter would be helpful. The patient has alopecia. She received her last chemotherapy from Dr. Doshi 3 weeks ago. PAST MEDICAL HISTORY: 1. Small cell lung carcinoma - currently undergoing treatment. 2. History of non-Hodgkin's lymphoma treated with radiation to her chest. 3. History of pulmonary emboli. 4. Atrial fibrillation. 5. Diabetes mellitus. 6. Myocardial infarction. 7. Hypothyroidism. 8. Coronary artery disease. 9. History of hemoptysis. 10. History of cigarette smoking. 11. Hypertension. PAST SURGICAL HISTORY: 1. Childbirth. 2. Left breast biopsy. 3. Coronary artery bypass grafting. 4. Insertion of right PleurX catheter with subsequent removal. 5. Cholecystectomy. 6. Cataract extraction. 7. Splenectomy. 8. Percutaneous transluminal angioplasty and stent. 9. Right thoracentesis. 10. ERCP. 11. Pulmonary arteriogram for re-embolization for hemoptysis. 12. Ablation for atrial tachycardia. MEDICATIONS: Please see chart, but includes Coumadin. ALLERGIES: MULTIPLE, please see chart. SOCIAL HISTORY: The patient states she has now stopped smoking. She lives with her who has progressive dementia which is a stress. FAMILY MEDICAL HISTORY: The patient's 2 sons and her grandson are healthy. REVIEW OF SYSTEMS: The patient does not feel well. She is having a very hard time with her breathing. She has alopecia. She states she has orthopnea and has problems with exertion doing anything. She has had no neurologic events. She states she has not been eating well because has not felt like it. She denies palpitations. PHYSICAL EXAMINATION: GENERAL: This is a 67-year-old who has aged markedly by sight since I last saw her 3 months ago. She has alopecia. HEENT: Extraocular movements are intact. Her sclerae are quite pale. Pupils are equally round. NECK: Supple. She has marked kyphosis and scoliosis. LUNGS: She has decreased breath sounds in both sides, worse on the right than the left. She has a well-healed sternotomy incision. She has no click. HEART: She has an irregularly irregular rhythm without a significant murmur. ABDOMEN: Soft, nontender. EXTREMITIES: As stated, she has marked kyphoscoliosis. She really does not have much in the way of edema of the lower extremities, although she has had this in the past. I could palpate her pedal pulses. She has no joint effusions. NEUROLOGIC: She is awake, alert, and able to move all extremities to command. ASSESSMENT AND PLAN: Bilateral pleural effusions, right greater than left, in a patient with a multitude of problems. Despite the fact that she is on Coumadin with a gapped INR, I am going to offer her a thoracentesis under ultrasound guidance today.
[2018-05-14] MEDS: HEPARIN 100 UNIT/ML 5ML FLUSH IV PRN ×2 (06:11→08:43)
--- NOTE | 2018-05-14 06:57 | XRay Report ---
XR chest 1V portable CLINICAL HISTORY: effusion COMPARISON STUDY: Chest radiograph May 13, 2018. FINDINGS: Left subclavian Iciswl-c-Geeb, median sternotomy wires and upper abdominal surgical clips a re noted. There is no pneumothorax. A moderate left pleural effusion is unchanged. A small right pleu ral effusion is slightly increased. There is persistent interstitial thickening and bibasilar opaciti es. Nodular opacities within the lungs are again noted. Lung aeration is slightly diminished. IMPRESSION: 1. No change in a moderate left pleural effusion. Slight increase in a small right pleural effusion. Persistent bibasilar opacities. 2. Persistent interstitial thickening suggestive of pulmonary edema. Electronically signed by: Nguyễn Thacker M.D. 05/14/2018 6:55 AM
[2018-05-14] MEDS: ALBUT/IPRATROP 3MG/0.5MG NEB 3 ML VIAL NEB SCH ×4 (07:09→19:26)
[2018-05-14] MEDS: ACETYLCYSTEINE 20% INHAL SOLN ***DISPENSED BY RESP. INH SCH ×2 (07:09→19:26)
[2018-05-14 07:10] LABS: INR 2.4 (0.9-1.1); Prothrombin Time 23.3 Seconds (9.0-12.0)
[2018-05-14] MEDS: FLUTICASONE/SALMETEROL 250/50 (ADVAIR) 14 PUFF/1 INHALER INH SCH ×2 (08:05→21:17)
[2018-05-14] MEDS: LEVOTHYROXINE SODIUM 112 MCG TABLET PO SCH (08:05)
[2018-05-14] MEDS: LORATADINE 10 MG TAB PO SCH (08:06)
[2018-05-14] MEDS: METOPROLOL SUCC 50MG EXT REL TAB PO SCH (08:07)
[2018-05-14] MEDS: PANTOprazole 40 MG TAB PO SCH (08:07)
[2018-05-14] MEDS: DRONABINOL 2.5 MG CAP PO SCH ×3 (08:10→21:17)
[2018-05-14] MEDS: DOCUSATE SODIUM 100 MG CAP PO SCH ×3 (08:30→22:15)
[2018-05-14] MEDS: FLUTICASONE PROPIONATE NA SPR 16 GM BTL SCH (08:30)
[2018-05-14] MEDS: FOLIC ACID 1 MG TAB PO SCH (08:31)
[2018-05-14] MEDS: CHOLECALCIFEROL 1,000 UNITS TAB PO SCH (08:32)
[2018-05-14] MEDS: VITAMIN B COMPLEX TAB PO SCH (08:32)
[2018-05-14] MEDS: FUROSEMIDE 60 MG in SYRINGE 0 ML IV SCH (08:39)
[2018-05-14] MEDS: CLOTRIMAZOLE 10 MG TROCHE BUCCAL SCH ×5 (10:22→23:58)
[2018-05-14] MEDS: MAGNESIUM OXIDE 400 MG TAB PO SCH ×2 (11:24→21:18)
[2018-05-14] MEDS: POLYETHYLENE (MIRALAX) 17 GM PACK PO SCH (11:25)
[2018-05-14] MEDS: ZINC SULFATE 220 MG CAPSULE PO SCH (11:25)
--- NOTE | 2018-05-14 11:53 | Progress Note ---
DATE: 05/14/2018 Ms. Preston was seen today. She feels that she is much better, had a much better night. She is breathing better. Her x-ray shows bilateral pleural effusions; in the right, it is reaccumulated a bit poor. She has more on the left than the right at this point. We had a discussion about this and I could tap the left side, but she looks so much better to me now that I think we will hold off doing anything. The fluid does not appear to be infected. It is on the borderline between a transudate and an exudate. We are waiting for cytology; however, she has done this in the past. I think we are probably dealing with a benign effusion.
--- NOTE | 2018-05-14 15:14 | Consultation Report ---
DATE OF CONSULTATION: 05/14/2018 MEDICAL ONCOLOGY CONSULTATION REASON FOR CONSULTATION: The patient is well known to [facility] with history of extensive small cell lung cancer, admitted with pleural effusion. HISTORY OF PRESENT ILLNESS: Litzy is a pleasant but unfortunate 67-year-old female patient who was sent from our office after undergoing a chest x-ray noted a right-sided fluid collection. Apparently, Litzy had not been feeling well for the previous 4-5 days prior to admission complaining of nausea and vomiting and poor p.o. intake. She was originally diagnosed with extensive-stage small cell lung cancer back in late February and started a combination etoposide and cisplatin on 03/30/2018. She completed 2 cycles and was due to start cycle #3 upon admission to [facility]. Admitting chest x-ray was consistent with cephalization suggestive of heart failure and moderate bilateral pleural effusions. According to Dr. Steele who I spoke to informally about Litzy's case, has history of benign effusions in the past. Dr. Steele performed a right-sided thoracentesis yielding 1300 mL of straw-colored fluid. Pathology is pending at the time of dictation. Clearly, Litzy's performance status has declined considerably as a result of her first 2 cycles of chemotherapy and will not plan on resumption until she is medically stable. PAST MEDICAL HISTORY: Positive for extensive small cell lung cancer, history of myocardial infarction, atrial ectopic tachycardia, gastroesophageal reflux disease, history of Hodgkin's lymphoma, hypothyroidism, pulmonary hemorrhage, and upper GI bleeding. PAST SURGICAL HISTORY: Status post coronary artery stenting, cholecystectomy, splenectomy, bronchoscopy with biopsy, EBUS/navigational bronchoscopy on 02/24/2018. MEDICATIONS: Nystatin 5 mL p.o. q.i.d., tramadol 50-100 mg p.o. q. 6 hours, vitamin B complex 1 tablet p.o. daily, warfarin 5 mg p.o. as instructed, ranitidine 150 mg p.o. at bedtime p.r.n., potassium chloride 20 mEq p.o. 12 hours, omeprazole 40 mg p.o. daily, nitroglycerin 0.4 sublingual p.r.n., metoprolol 100 mg p.o. daily, magnesium oxide 400 mg p.o. b.i.d., loratadine 10 mg p.o. daily, levothyroxine 112 mcg p.o. daily, furosemide 40 mg p.o. daily, folic acid 2 mg p.o. daily, Advair Diskus one inhalation p.o. q. 12 hours, Flonase allergy spray 1 spray intranasally daily, docusate sodium 100 mg p.o. b.i.d., Benadryl 25 mg p.o. at bedtime p.r.n., Valium 5 mg p.o. t.i.d. p.r.n., cholecalciferol 2000 units p.o. daily, baclofen 10 mg p.o. q. 12 hours p.r.n., azelastine 2 sprays intranasally q. 12 hours, atorvastatin 80 mg p.o. daily, aspirin 81 mg p.o. daily, amoxicillin 2000 mg p.o. as directed and albuterol inhaler 2 puffs inhalation q. 6 hours p.r.n. ALLERGIES: WALNUTS, TALWIN, ETHANOL, ADHESIVE TAPE, SUCCINYLCHOLINE, SHRIMP, SHELLFISH, PSEUDOEPHEDRINE, PROPOXYPHENE, PROPANTHELINE, PENICILLINS, MORPHINE, MIDAZOLAM, LIDOCAINE, IODINE, GOLD SALTS, DOXYLAMINE, DIPHENOXYLATE, DEXTROMETHORPHAN, CODEINE, ____, BEE VENOM, ATROPINE, ACETAMINOPHEN, MEPERIDINE. SOCIAL HISTORY: The patient is . She is retired. She is a cigarette smoker, 10 per day. Positive for social alcohol, negative for substance abuse. FAMILY HISTORY: Positive for coronary artery disease. REVIEW OF SYSTEMS: Positive for weight loss and anorexia, failure to thrive, declining performance status overall. No fevers or chills or sweats. GENERAL: Positive for generalized weakness. SKIN: No rashes or lesions. No history of dermatoses. HEENT: Negative for headaches, lightheadedness or dizziness. No acute visual or hearing deficits. No sinus symptoms, sore throat or dysphagia. LYMPH: No history of lymphoproliferative disease. CARDIAC: Positive history of coronary artery disease. No current angina or palpitations. PULMONARY: Negative for COPD by history. Positive for recurrent pleural effusions, most have been transudative. Positive for shortness of breath, dyspnea on exertion. Positive for semi-productive cough. Denies hemoptysis. GASTROINTESTINAL: The patient has battled with occasional nausea and vomiting attributable to chemotherapy. No current diarrhea or constipation. No hematochezia or melena stools. GENITOURINARY: No hematuria, dysuria, urinary incontinence. PSYCHIATRIC: Positive for depression and anxiety. ENDOCRINE: Positive for hypothyroidism. NEUROLOGIC: Negative for seizure, stroke, or migraine headache. HEMATOLOGIC: Positive for cytopenias attributable to prior chemotherapy. PHYSICAL EXAMINATION: GENERAL: She is an ill-appearing 67-year-old female sitting at bedside, answers questions appropriately, in no acute distress. VITAL SIGNS: Temperature 36.7, pulse 104, respiratory rate 18, blood pressure 118/68. SKIN: Turgor is poor. No petechiae, ecchymosis or rash apparent. HEENT: Head: Atraumatic, normocephalic. Eyes: PERRLA, EOMI. Sclerae nonicteric. Nares patent. Throat clear. Mucous membranes are dry. No overt buccal lesions or ulcerations. NECK: Supple. Trachea is midline. No JVD or thyromegaly. LYMPH: No cervical, supraclavicular, axillary palpable nodes. HEART: Regular rate and rhythm. LUNGS: Diminished breath sounds in bases bilaterally. ABDOMEN: Soft, nontender, nondistended without palpable hepatosplenomegaly. Bowel sounds are hypoactive. EXTREMITIES: Musculoskeletal strength and pulses are equal in all 4 quadrants. NEUROLOGICALLY: She is awake, alert and oriented x3. Cranial nerves are grossly intact. LABORATORY DATA: WBC count 24,420, hemoglobin 10.6, platelet count 461,000. Chemistries: Sodium 132, potassium 4.2, chloride 91, carbon dioxide 38, creatinine 0.37, BUN 17. IMPRESSION: 1. Failing performance status. 2. Chronic diastolic congestive heart failure. 3. Bilateral pleural effusions. 4. Status post right thoracentesis/pleural effusion. 5. Nausea and vomiting. 6. Extensive stage small cell lung cancer. 7. Atrial fibrillation. 8. Hyperlipidemia. 9. Asthma. PLAN: I have been asked to visit with Litzy who has now been hospitalized for 5 days for originally presenting with a failing performance status, shortness of breath and pleural effusion. Await pleural fluid analysis. I suspect that a fluid will be transudative as does Dr. Steele. Litzy began chemotherapy for extensive small cell lung cancer in early March and clearly has not done well with treatment. She was scheduled to begin her third cycle when she was hospitalized. Litzy is in poor clinical state to resume chemotherapy anytime soon and depending on her progress or move the lack thereof may completely abandoned therapy moving forward. If she does recover, significant dose reduction will be discussed. For now, I agree with current medical management. I will periodically look in on Litzy and her progress. Nonetheless, her chemotherapy is now suspended and will not plan to resume until she is medically stable. Thank you very much for allowing me to participate in her care. If you have any questions or concerns, feel free to contact me at any time. MTDD
[2018-05-14] MEDS: WARFARIN SOD 2.5 MG TAB PO SCH (16:58)
[2018-05-14] MEDS: LIDOCAINE 5% 1 PATCH TD SCH ×3 (16:59→19:52)
[2018-05-14 17:48] LABS: Base Excess VBG 17.4 mEq/L; Oxygen Saturation VBG 67.4 %; pH VBG 7.39 (7.36-7.41)
[2018-05-14 18:05] LABS: BUN Creatinine Ratio 62.9 (10-20); Calcium 8.9 mg/dl (8.5-10.1); Creatinine Clr Calc Pharmacy 103.7 ml/min; Est GFR (African American) 123.8; Est GFR (Non-African American) 106.8; Potassium 3.8 mmol/L (3.5-5.1)
[2018-05-14] MEDS: ONDANSETRON INJ 2 MG/ML 2 ML VIAL IV PRN (19:51)
[2018-05-14] MEDS: ATORVASTATIN 40 MG TAB PO SCH (21:18)
[2018-05-14] MEDS: ASPIRIN 81 MG ECTAB PO SCH (21:21)
[2018-05-14] MEDS ORDERED: ACETAMINOPHEN SOL 650 MG/20.3 ML UDC PO PRN (21:48)
[2018-05-15] MEDS: ALBUT/IPRATROP 3MG/0.5MG NEB 3 ML VIAL NEB SCH ×5 (04:33→20:16)
[2018-05-15 05:53] LABS: HCO3 ABG 45 mmol/L (19-24); Oxygen Saturation ABG 95.8 % (90-95); PCO2 ABG 82 mmHg (35-46); PO2 ABG 89 mm/Hg (80-95); pH ABG 7.36 (7.35-7.45)
[2018-05-15 05:55] LABS: Allen Test POS (Pos)
[2018-05-15] MEDS: HEPARIN 100 UNIT/ML 5ML FLUSH IV PRN ×2 (05:58→08:28)
[2018-05-15 06:48] LABS: INR 2.8 (0.9-1.1); Prothrombin Time 26.7 Seconds (9.0-12.0)
[2018-05-15] MEDS ORDERED: ACETAMINOPHEN 65 ML IV PRN (07:00)
[2018-05-15] MEDS: ACETYLCYSTEINE 20% INHAL SOLN ***DISPENSED BY RESP. INH SCH ×2 (07:07→22:14)
--- NOTE | 2018-05-15 07:09 | Progress Note ---
Date of Service May 15, 2018 Subjective Called by nursing to assess patient after episode of aspiration of liquid. On assessment she is afebrile, tachycardic at 104, blood pressure stable. NC in place with 5L O2, oxygen saturation has been high 80's to 90's. She is frail, cachectic and ill in appearance. Heart-+S1/S2, regular, tachycardic, no m/r/g Lungs with coarse breath sounds bilaterally. Diminished in bases bilaterally. Cough is weak Abd benign CXR with bilateral airspace disease and effusions, similar to prior. Seems to show reaccumulation of effusion since her thoracentesis ABG with compensated respiratory acidosis Assessment/Plan: 67yo female with lung CA, pleural effusion s/p thoracentesis and recurrent aspiration -Aspiration precautions -NPO -Continuous pulse oximetry -Supplemental O2 to keep sats 88-92% -Speech/Swallow evaluation -Continue nebs and secretion management Briefly discussed code status at request of patient's niece who is at bedside. Patient wishes to remain full code at this time. She states that she is a fighter and does not feel that things are over yet. She has a friend that works in hospice, Mrs. Pichardo, and would like to hear more about Palliative/ Hospice services. -Palliative care consult Physical Exam 2 Vital Signs (Past 24 Hours): Last Vital Signs Temp 36.8 C 05/15/18 04:46 Pulse 104 H 05/15/18 04:46 Resp 20 05/15/18 04:46 BP 115/65 05/15/18 04:46 Pulse Ox 96 05/15/18 04:46
--- NOTE | 2018-05-15 07:43 | XRay Report ---
XR chest 1V portable CLINICAL HISTORY: aspiration COMPARISON STUDY: 05/14/2018 FINDINGS: The cardiac images so contours remain stable. There is a left-sided A-Port catheter present . There are persistent bilateral pleural effusions. There are persistent bilateral pulmonary airspace opacities. An element of underlying pulmonary vascular congestion is again suspected.[ IMPRESSION: No change the preceding study. Persistent bilateral pleural effusions and bilateral pulmo nary airspace opacities with suspected superimposed pulmonary vascular congestion Electronically signed by: Jeromy Torres M.D. 05/15/2018 7:42 AM
[2018-05-15] MEDS: LEVOTHYROXINE SODIUM 112 MCG TABLET PO SCH (07:46)
[2018-05-15] MEDS: ONDANSETRON INJ 2 MG/ML 2 ML VIAL IV PRN (08:28)
[2018-05-15] MEDS: FLUTICASONE/SALMETEROL 250/50 (ADVAIR) 14 PUFF/1 INHALER INH SCH ×2 (08:28→21:50)
[2018-05-15] MEDS: FLUTICASONE PROPIONATE NA SPR 16 GM BTL SCH (08:29)
--- NOTE | 2018-05-15 10:55 | Hospitalist Progress Note ---
Date of Service May 14, 2018 Assessment & Plan (1) Chronic diastolic CHF (congestive heart failure): Acute on chronic diastolic dysfunction Patient had thoracocenthesis and 1350 mL of a rust colored fluid was drained Patient was not responding to lasix. Ordered another VBG on 05/14 which showed respiratory failure with hypercapnea. X-ray shows no improvement with pleural effusions. will start BIPAP overnight. will continue to monitor clinically. (2) Acute respiratory failure with hypoxia: Patient appears to be also having hypercapnea. Likely related to CHF exacerbation, vs exudative from cancer. Nebs, mucomyst (3) Nausea & vomiting: Acute GE vs chemo reaction Monitor Cr WNL, will hold on further hydration given CHF Full liquid diet for now, ADAT (4) Small cell lung cancer: Ongoing chemo; poor prognosis. Patient states best case scenario with chemo she may have 2 years left to live Onc states will hold off chemotherapy for now. (5) Asthma: No current exacerbation Nebs to help prevent (6) HLD (hyperlipidemia): continue home meds (7) Atrial fibrillation: continue home meds Coumadin is 2.5mg every day unless called by [facility] to adjust (8) Hypothyroidism: continue home meds (9) GERD (gastroesophageal reflux disease): continue home meds (10) Anxiety: continue home meds PRN (11) CAD (coronary artery disease): Hx of stent/CABG Monitor (12) DVT prophylaxis: Therapeutic on coumadin (13) DM type 2 (diabetes mellitus, type 2): Diet controlled BS WNL in ED Monitor (14) Hodgkin lymphoma: Was tx for this in the 80s, no current issues (15) Tobacco use disorder: Working towards cessation Declines patch, will order PRN Spent 45 minutes in management of patient. (16) Severe protein-calorie malnutrition: Subjective 67 yo female reports not feeling any better today. SHe reports feeling worse today. She reports her improvement after the procedure was short lived. She states that she spoke with Oncology. Spoke with Dr. Steele. Reviewed x-rays, fluid appears to be returning. Will reassess in AM. I explained to patient that she may require BIPAP. Will recheck her labs. Nurse states that patient has been intermittently confused today. Physical Exam 2 Vital Signs (Past 24 Hours): Last Vital Signs Temp 36.9 C 05/14/18 15:38 Pulse 107 H 05/14/18 15:38 Resp 20 05/14/18 15:38 BP 91/54 05/14/18 15:38 Pulse Ox 95 05/14/18 15:38 Physical Exam: Constitutional: WD/WN, vitals as above Eyes: normal visual anne by confrontation and + anicteric sclerae Neck: trachea midline Respiratory: using accesory muscles to breath. Auscultation: + bilateral rales with wheezing.(no change) Cardiovascular: Rate/Rhythm: regular rate; + abnormal rhythm (irregular) Gastrointestinal (Abdomen): Inspection/Auscultation: abdomen not distended Percussion/Palpation: abdomen soft; abdomen nontender Musculoskeletal: Head/Neck/Chest: normocephalic and head atraumatic Trace LE edema, peripheral pulses intact Skin: no rashes, warm and dry Neurologic: awake; not confused Speech / Cognition: normal speech Psychiatric: A+Ox3, euthymic affect _ (1) CAD (coronary artery disease) Associated angina: without angina Coronary Disease-Associated Artery/Lesion type: [place] artery [place] vs. transplanted heart: [place] heart Qualified Code (s): I25.10 - Atherosclerotic heart disease of [place] coronary artery without angina pectoris (2) Atrial fibrillation Atrial fibrillation type: chronic Qualified Code(s): I48.2 - Chronic atrial fibrillation (3) HLD (hyperlipidemia) Hyperlipidemia type: unspecified Qualified Code(s): E78.5 - Hyperlipidemia, unspecified (4) Hypothyroidism Hypothyroidism type: acquired Qualified Code(s): E03.9 - Hypothyroidism, unspecified (5) Asthma Asthma complication type: uncomplicated Asthma persistence: persistent Asthma severity: moderate Qualified Code(s): J45.40 - Moderate persistent asthma, uncomplicated
[2018-05-15] MEDS: CLOTRIMAZOLE 10 MG TROCHE BUCCAL SCH ×3 (11:02→20:16)
[2018-05-15] MEDS: MAGNESIUM OXIDE 400 MG TAB PO SCH ×2 (11:03→21:50)
[2018-05-15] MEDS: POLYETHYLENE (MIRALAX) 17 GM PACK PO SCH (11:03)
[2018-05-15] MEDS: FOLIC ACID 1 MG TAB PO SCH (11:03)
[2018-05-15] MEDS: DOCUSATE SODIUM 100 MG CAP PO SCH ×2 (11:03→21:50)
[2018-05-15] MEDS: LORATADINE 10 MG TAB PO SCH (11:03)
[2018-05-15] MEDS: DRONABINOL 2.5 MG CAP PO SCH ×3 (11:03→21:50)
[2018-05-15] MEDS: METOPROLOL SUCC 50MG EXT REL TAB PO SCH ×3 (11:04→12:51)
[2018-05-15] MEDS: CHOLECALCIFEROL 1,000 UNITS TAB PO SCH (11:04)
[2018-05-15] MEDS: ZINC SULFATE 220 MG CAPSULE PO SCH (11:04)
[2018-05-15] MEDS: VITAMIN B COMPLEX TAB PO SCH (11:04)
[2018-05-15] MEDS: PANTOprazole 40 MG TAB PO SCH (11:04)
[2018-05-15] MEDS: WARFARIN SOD 2.5 MG TAB PO SCH (16:07)
[2018-05-15] MEDS: LIDOCAINE 5% 1 PATCH TD SCH ×2 (17:17→18:02)
[2018-05-15] MEDS: ASPIRIN 81 MG ECTAB PO SCH (21:50)
[2018-05-15] MEDS: ATORVASTATIN 40 MG TAB PO SCH (21:50)
--- NOTE | 2018-05-15 23:43 | Hospitalist Progress Note ---
Date of Service May 15, 2018 Assessment & Plan (1) Chronic diastolic CHF (congestive heart failure): Acute on chronic diastolic dysfunction Patient had thoracocenthesis and 1350 mL of a rust colored fluid was drained Patient was not responding to lasix. Ordered another VBG on 05/14 which showed respiratory failure with hypercapnea. X-ray shows no improvement with pleural effusions. Patient refused BIPAP. will continue to monitor clinically. Diuretics are currrently held. Possibilty that this may likely be a malignant effussion. (2) Acute respiratory failure with hypoxia: Patient appears to be also having hypercapnea. Likely related to CHF exacerbation, vs exudative from cancer. Nebs, mucomyst (3) Nausea & vomiting: Acute GE vs chemo reaction Monitor Cr WNL, will hold on further hydration given CHF heart healthy diet; passed speech, has to take small sips. (4) Small cell lung cancer: Ongoing chemo; poor prognosis. Patient states best case scenario with chemo she may have 2 years left to live Onc states will hold off chemotherapy for now. (5) Asthma: No current exacerbation Nebs to help prevent (6) HLD (hyperlipidemia): continue home meds (7) Atrial fibrillation: continue home meds Coumadin is 2.5mg every day unless called by [facility] to adjust (8) Hypothyroidism: continue home meds (9) GERD (gastroesophageal reflux disease): continue home meds (10) Anxiety: continue home meds PRN (11) CAD (coronary artery disease): Hx of stent/CABG Monitor (12) DVT prophylaxis: Therapeutic on coumadin (13) DM type 2 (diabetes mellitus, type 2): Diet controlled BS WNL in ED Monitor (14) Hodgkin lymphoma: Was tx for this in the 80s, no current issues (15) Tobacco use disorder: Working towards cessation Declines patch, will order PRN Spent 35 minutes in management of patient. (16) Severe protein-calorie malnutrition: Subjective 67 yo female reports feeling mildly better today. She still feels short of breatj, but she reports less than today. Patient's family is at bedside. D/W overnight hospitalist, appears she had aspirated. She was never on BIPAP. Spech eval ordered. Family wanted code status readdressed. Patient in front of family showed understanding of what CPR entails and wants to be full code. She understands she may have broken ribs, and she may not survive if it gets to that point. But she would like to try. All questions by family were answered. Spoke with Dr. Steele, will consider another thoracocenthesis. Nurse states that patient has been intermittently confused today. Physical Exam 2 Vital Signs (Past 24 Hours): Last Vital Signs Temp 36.3 C L 05/15/18 21:00 Pulse 103 H 05/15/18 21:00 Resp 20 05/15/18 21:00 BP 135/72 05/15/18 21:00 Pulse Ox 100 05/15/18 21:00 Physical Exam: Constitutional: WD/WN, vitals as above Eyes: normal visual anne by confrontation and + anicteric sclerae Neck: trachea midline Respiratory: using accesory muscles to breath. Auscultation: + decreased wheezing, rales heard. Cardiovascular: Rate/Rhythm: regular rate; + abnormal rhythm (irregular) Gastrointestinal (Abdomen): Inspection/Auscultation: abdomen not distended Percussion/Palpation: abdomen soft; abdomen nontender Musculoskeletal: Head/Neck/Chest: normocephalic and head atraumatic Trace LE edema, peripheral pulses intact Skin: no rashes, warm and dry Neurologic: awake; not confused Speech / Cognition: normal speech Psychiatric: A+Ox3, euthymic affect _ (1) CAD (coronary artery disease) Associated angina: without angina Coronary Disease-Associated Artery/Lesion type: [place] artery [place] vs. transplanted heart: [place] heart Qualified Code (s): I25.10 - Atherosclerotic heart disease of [place] coronary artery without angina pectoris (2) Atrial fibrillation Atrial fibrillation type: chronic Qualified Code(s): I48.2 - Chronic atrial fibrillation (3) HLD (hyperlipidemia) Hyperlipidemia type: unspecified Qualified Code(s): E78.5 - Hyperlipidemia, unspecified (4) Hypothyroidism Hypothyroidism type: acquired Qualified Code(s): E03.9 - Hypothyroidism, unspecified (5) Asthma Asthma complication type: uncomplicated Asthma persistence: persistent Asthma severity: moderate Qualified Code(s): J45.40 - Moderate persistent asthma, uncomplicated
[2018-05-16] MEDS: CLOTRIMAZOLE 10 MG TROCHE BUCCAL SCH ×6 (00:24→23:42)
[2018-05-16] MEDS: ONDANSETRON INJ 2 MG/ML 2 ML VIAL IV PRN ×4 (00:33→23:49)
[2018-05-16] MEDS: HEPARIN 100 UNIT/ML 5ML FLUSH IV PRN ×3 (01:56→14:30)
[2018-05-16] MEDS: ALBUT/IPRATROP 3MG/0.5MG NEB 3 ML VIAL NEB SCH ×5 (04:46→20:31)
[2018-05-16] MEDS: LEVOTHYROXINE SODIUM 112 MCG TABLET PO SCH (06:21)
[2018-05-16] MEDS: ACETYLCYSTEINE 20% INHAL SOLN ***DISPENSED BY RESP. INH SCH ×2 (07:32→21:34)
[2018-05-16 07:55] LABS: Basophils # (auto) 0.06 K/uL (0-0.2); Basophils % (auto) 0.4 %; Eosinophils # (auto) 0.02 K/uL (0-0.5); Eosinophils % (auto) 0.1 %; Hemoglobin 10.2 g/dL (12.0-16.0); Immature Granulocytes % (auto) 0.6 %; Lymphocytes # (auto) 1.26 K/uL (1.2-3.4); Lymphocytes % (auto) 7.4 %; Mean Corpuscular Hgb Conc 31.9 g/dL (32-36); Mean Corpuscular Volume 106.7 fL (80-100); Mean Platelet Volume 9.6 fL (7.4-10.4); Monocytes # (auto) 1.02 K/uL (0.11-0.59); Neutrophils # (auto) 14.62 K/uL (1.4-6.5); Neutrophils % (auto) 85.5 %; Platelet Count 406 K/uL (130-400); RDW Coefficient of Variation 16.7 % (11.5-14.5); RDW Standard Deviation 63.6 fL (36.4-46.3); White Blood Count 17.08 K/uL (4.8-10.8)
[2018-05-16 07:57] LABS: Base Excess VBG 17.4 mEq/L; Oxygen Saturation VBG 62.4 %; pH VBG 7.35 (7.36-7.41)
[2018-05-16 08:09] LABS: Prothrombin Time 52.7 Seconds (9.0-12.0)
[2018-05-16 08:17] LABS: INR 5.8 (0.9-1.1)
[2018-05-16 08:41] LABS: Albumin Globulin Ratio 0.5 (0.9-2); Albumin Level 2.4 gm/dl (3.4-5.0); BUN Creatinine Ratio 62.7 (10-20); Bilirubin,Total 0.4 mg/dl (0.2-1); Calcium 9.2 mg/dl (8.5-10.1); Est GFR (African American) 119.3; Est GFR (Non-African American) 102.9; Globulin 4.4 gm/dl (2.5-4.0); Potassium 4.2 mmol/L (3.5-5.1); Total Protein 6.8 gm/dl (6.4-8.2)
[2018-05-16] MEDS: FLUTICASONE PROPIONATE NA SPR 16 GM BTL SCH (09:05)
[2018-05-16] MEDS: FLUTICASONE/SALMETEROL 250/50 (ADVAIR) 14 PUFF/1 INHALER INH SCH ×2 (09:05→21:33)
[2018-05-16] MEDS: POLYETHYLENE (MIRALAX) 17 GM PACK PO SCH (09:23)
[2018-05-16] MEDS ORDERED: GLUCOSE 10 TABS/TUBE PO PRN (09:28)
[2018-05-16] MEDS ORDERED: GLUCAGON FOR INJ 1 MG VIAL IM PRN (09:28)
[2018-05-16] MEDS ORDERED: GLUCOSE 40% GEL 15 GM TUBE PO PRN (09:28)
[2018-05-16] MEDS ORDERED: CARBOHYDRATES FOR HYPOGLYCEMIA PO PRN (09:28)
[2018-05-16] MEDS ORDERED: DEXTROSE 50% 50 ML SYRINGE IV PRN (09:28)
[2018-05-16] MEDS: INSULIN GLARGINE SOLOSTAR 100 UNITS/ML 3 ML PEN SC SCH (10:39)
[2018-05-16] MEDS: METOPROLOL SUCC 50MG EXT REL TAB PO SCH (10:40)
[2018-05-16] MEDS: LORATADINE 10 MG TAB PO SCH (11:00)
[2018-05-16] MEDS: DOCUSATE SODIUM 100 MG CAP PO SCH ×2 (11:00→21:33)
[2018-05-16] MEDS: MAGNESIUM OXIDE 400 MG TAB PO SCH ×2 (11:01→21:34)
[2018-05-16] MEDS: FOLIC ACID 1 MG TAB PO SCH (11:01)
[2018-05-16] MEDS: DRONABINOL 2.5 MG CAP PO SCH ×2 (11:02→14:30)
[2018-05-16] MEDS: CHOLECALCIFEROL 1,000 UNITS TAB PO SCH (11:03)
[2018-05-16] MEDS: PANTOprazole 40 MG TAB PO SCH (11:03)
[2018-05-16] MEDS: VITAMIN B COMPLEX TAB PO SCH (11:03)
[2018-05-16] MEDS: ZINC SULFATE 220 MG CAPSULE PO SCH (11:03)
--- NOTE | 2018-05-16 11:55 | Progress Note ---
DATE: 05/16/2018 Ms. Preston was seen today. I discussed this case with Dr. Hall yesterday who felt that her breathing was worse and she tells me it is a bit worse today. On 3-1/2 liters, she is 97% this morning. She does have decreased breath sounds in the right base, although I think she is still moving air better on the right than she was. I told her we would go ahead and do a left thoracentesis under ultrasound guidance; however, her PT/INR is over 5 today. I think the better part of valor would be to put this off until we can get that corrected. She was 2.8 yesterday. She is 5.8 today. Her PT is up to 52.7. We hold off until this corrects a bit more, then we will offer her a thoracentesis on the left side under ultrasound guidance. She actually is able to carry on conversations without difficulty. I think she looks a little better. ZANDRA
--- NOTE | 2018-05-16 12:36 | Palliative Care Consultation ---
Date of Consultation May 16, 2018 Assessment & Plan (1) Palliative care encounter: This is a 67 year old female who [facility] as she was experiencing shortness of breath for which she was diagnosed post CXR with CHF exacerbation. She has additional PMH including small cell lung cancer, asthma, HLD, A-fib, CAD and Hodgkin's Lymphoma which was diagnosed and treated in the . She sees Dr. Doshi for heme/onc treatment and had her last dose of Etoposide and Cisplatin in March 2018. She was to undergo her third round of chemotherapy last week, but was medically unstable. Currently, chemotherapy is suspended until further notice pending her medical stability. -I met in the room with the patient, (Casey) who has cognitive impairment , her brother (Gordo), sister (Evangelina), son (Ivan), [id number] (Mary) and best friend (Marina) who came in towards the end of the meeting. We talked at length about code status as the patient is currently a Full Code. When treatment from interfering with end of life by losing a pulse, the patient was willing to change to a DNR and embrace the control she has over this decision. I placed a DO NOT RESUSCITATE order. -The patient has had experience on a ventilator, but this was for a procedure and she was a difficult extubation - we discussed how her lung cancer and CHF would hinder extubation even more - she understood and her, and family decided to move forward as a DNR. -I inquired with the patient if there was anything she felt was left undone in her life and she commented on her son, Hugh, who is incarcerated for another year, whom she does get the chance to talk to weekly, but feels hopeless. She also stated she would like her garage to be in order, which she says is beyond full of items, before she dies. -In the event that she is unable to make her own decisions, she appointed Marina and Gordo as her decision makers; however, nothing in legally documented. Apparently, they have spoken with a rotary adjuster about this. Should the patient not be able to continue this discussion, we can move forward having [facility] complete this request. -The patient did express she would like to get well enough for one more round of chemotherapy at a reduced dose, which we will continue to discuss during this hospitalization as she also seems receptive to Hospice care at home. -A POLST form would be helpful for this patient; however, as the conversation was lengthy and complex, I plan on presenting and discussing this tomorrow. The patients brother and sister are returning to [facility] tomorrow, so they are available over the phone for this discussion if needed. -The patient has [facility] for home health currently which she would like to return home with, with an eventual transition to hospice. -A family member expressed that the son who lives at home has substance abuse in his history, which is something we will need to be considerate about regarding the patient returning home. -PPS 30% (2) Chronic diastolic CHF (congestive heart failure): -Managed by Hospitalists and Pulmonary -Pt with recurring pleural effusions which most recently she underwent a thoracentesis for 1300mL or straw colored transudate vs exudate -Pt has a history of having a pleur-x catheter which was removed. -Pt has a history of lymphoma and was tx with radiation and she developed pleural effusions thereafter. (3) Nausea & vomiting: -Possible aspiration -Has been evaluated by ST -Receiving Zofran 4mg IV Q6 hours - has taken 4 times in past 24 hours with positive response (4) Small cell lung cancer: -Managed by Heme/Onc - Dr. Bella -Diagnosed in 02/2018 with 2 year prognosis and palliative chemo option -Received last dose of Etoposide and Cisplatin in March 2018. -Plan was to have chemo 05/13, but was medically unstable -Chemotherapy is suspended until further notice pending her medical stability. Supervising Physician Co-Signing Physician Notes Late entry for exam done on 05/16. Chart reviewed, patient seen and examined, collaborated with LUCY Gatica P -patient's , son, sister and brother were at bedside. PE: No acute distress, frail appearing female, on O2, shortness of breath with conversation HEENT: EOMI, normal hearing Respirations: Unlabored at rest, increased work of breathing with conversation, decreased breath sounds bilaterally CV: Regular rate, no edema Abdomen: Soft, nontender, not distended Neuro: Alert and oriented Agree with above note, assessment and plan as per CECE Gatica -will continue to follow and assist with medical decision making. Patient's goal is to return home with home health in hopes of getting strong enough to receive 1 more dose of chemo at half dose. History of Present Illness Reason for Consultation: Goals of care Requesting Physician: Dr. Loyd Attending Physician: Darrell Guerin History of Present Illness This is a 67 year old female who was [facility] as she was experiencing shortness of breath for which she was diagnosed post CXR with CHF exacerbation. She has additional PMG including small cell lung cancer, asthma, HLD, A-fib, CAD and Hodgkin's Lymphoma which was diagnosed and treated in the . She sees Dr. Doshi for heme/onc treatment and had her last dose of Etoposide and Cisplatin in March 2018. She was to undergo her third round of chemotherapy last week, but was medically unstable. Currently, chemotherapy is suspended until further notice pending her medical stability. Palliative Care was consulted to discuss CODE STATUS and GOALS OF CARE. Please see Assessment and Plan for further details. Thank you kindly for involving us in the care of this unfortunate patient. Allergies Allergy/AdvReac Type Severity Reaction Status Date / Time meperidine Allergy Intermediate SWELLING Verified 05/09/18 14:35 acetaminophen Allergy Unknown ? Verified 05/09/18 14:35 atropine Allergy Unknown ? Verified 05/09/18 14:35 bee venom protein (honey bee) Allergy Unknown SWELLING Verified 05/09/18 14:35 cefaclor Allergy Unknown ? Verified 05/09/18 14:35 codeine Allergy Unknown ? Verified 02/22/18 17:41 dextromethorphan Allergy Unknown HALLUCINATI Verified 05/09/18 14:35 ON diphenoxylate Allergy Unknown ? Verified 05/09/18 14:35 doxylamine Allergy Unknown HALLUCINATI Verified 05/09/18 14:35 ON Gold Salts Allergy Unknown RASH Verified 05/09/18 14:35 iodine Allergy Unknown "D/T Verified 05/09/18 14:35 ALLERGY TO SHRIMP" lidocaine Allergy Unknown LETHARGY Verified 05/09/18 14:35 midazolam Allergy Unknown MUSCLE Verified 05/09/18 14:35 SPAMS AND HALLUCINATIONS morphine Allergy Unknown SWELLING Verified 05/09/18 14:35 Penicillins Allergy Unknown ? Verified 05/09/18 14:35 propantheline Allergy Unknown ? Verified 05/09/18 14:35 propoxyphene Allergy Unknown SWELLING Verified 05/09/18 14:35 pseudoephedrine Allergy Unknown HALLUCINATI Verified 05/09/18 14:35 ON shellfish derived Allergy Unknown ? Verified 05/09/18 14:35 shrimp Allergy Unknown THROAT Verified 05/09/18 14:35 SWELLS SHUT succinylcholine Allergy Unknown TOLD NEVER Verified 05/09/18 14:35 TO USE, NEICE SEVERELY ALLERGIC TO MEDS adhesive AdvReac Mild Steri-strip Verified 05/09/18 14:35 - blisters Ethanol Allergy Unknown HALLUCINATI Uncoded 05/09/18 14:35 ON TALWIN Allergy Unknown HIVES AND Uncoded 05/09/18 14:35 CONFUSION WALNUTS Allergy Unknown SWELLING Uncoded 05/09/18 14:35 Home Medications Home Medications Medication Instructions Recorded Confirmed Type albuterol sulfate [Ventolin HFA] 2 puff INHALATION Q6H PRN 12/22/17 05/09/18 History amoxicillin 2,000 mg PO DIRECTED 12/22/17 05/09/18 History aspirin 81 mg PO HS 12/22/17 05/09/18 History atorvastatin 80 mg PO HS 12/22/17 05/09/18 History azelastine 2 spray INTRANASAL Q12H 12/22/17 05/09/18 History baclofen 10 mg PO Q12 PRN 12/22/17 05/09/18 History cholecalciferol (vitamin D3) 2,000 unit PO QAM 12/22/17 05/09/18 History [Vitamin D3] diazepam [Valium] 5 mg PO TID PRN 12/22/17 05/09/18 History diphenhydramine HCl [Benadryl] 25 mg PO HS PRN 12/22/17 05/09/18 History docusate sodium 100 mg PO BID 12/22/17 05/09/18 History fluticasone [Flonase Allergy 1 spray INTRANASAL QAM 12/22/17 05/09/18 History Relief] fluticasone-salmeterol [Advair 1 inh INHALATION Q12H 12/22/17 05/09/18 History Diskus] folic acid 2 mg PO DAILY 12/22/17 05/09/18 History furosemide 20 mg PO UD 12/22/17 05/09/18 History levothyroxine 112 mcg PO QAM 12/22/17 05/09/18 History loratadine 10 mg PO QAM 12/22/17 05/09/18 History magnesium oxide 400 mg PO Q12 12/22/17 05/09/18 History metoprolol succinate 100 mg PO QAM 12/22/17 05/09/18 History nitroglycerin [Nitrostat] 0.4 mg SUBLINGUAL DIRECTED PRN 12/22/17 05/09/18 History omeprazole 40 mg PO QAM 12/22/17 05/09/18 History potassium chloride [Klor-Con M20] 20 meq PO Q12 12/22/17 05/09/18 History ranitidine HCl [Zantac] 0 mg PO HS PRN 12/22/17 05/09/18 History warfarin 5 mg tablet 5 mg PO UD tab 02/07/18 05/09/18 History vitamin B complex [B-Complex] 1 tab PO QAM 02/22/18 05/09/18 History tramadol 50 - 100 mg PO Q6H #20 tab 03/03/18 05/09/18 Rx nystatin 5 ml PO QID #140 ml 03/04/18 05/09/18 Rx albuterol sulfate 2.5 mg INHALATION QID PRN 05/09/18 05/09/18 History fkteibk-bbpvghyfjm-IJS-caff 1 cap PO Q4H PRN 05/09/18 05/09/18 History [Fiorinal-Codeine #3] dronabinol 5 mg PO TID 05/09/18 05/09/18 History ferrous sulfate 325 mg PO TID 05/09/18 05/09/18 History ondansetron 8 mg PO TID PRN 05/09/18 05/09/18 History prochlorperazine maleate 10 mg PO QID PRN 05/09/18 05/09/18 History Patient History Medical History Small cell lung cancer Afib Anxiety CAD (coronary artery disease) CHF (congestive heart failure) COPD (chronic obstructive pulmonary disease) Hyponatremia Acute myocardial infarction Atrial ectopic tachycardia GERD (gastroesophageal reflux disease) Hx of Hodgkins lymphoma Hypothyroid Pulmonary hemorrhage Upper GI bleed Surgical History Hx of cholecystectomy Hx of heart artery stent Hx of splenectomy S/P bronchoscopy with biopsy EBUS/harmony bronch on 02/24/2018. 8.0ETT. MAC 3, grade 1 view. Patient reintubated postextubation (while still in operating room) for what appeared to be CO2 retention. Please see record for full details. Family History Sister Heart attack Other Family history non-contributory Social History marital status: Current Living Situation: Spouse current occupational status: retired Other Information That Helps Us Care for You: No Feels Safe at Home: Yes Safety Concerns: Feels Safe At This Time Smoking Status: Current every day smoker Tobacco Type: cigarettes Cigarettes per Day: 10 Do You Dip or Chew Tobacco: No Tobacco Cessation Education Requested by Patient: No Hx Alcohol Use: No Hx Substance Use: No Beliefs That Will Affect Care: Jain Jain Beliefs: Muslim Communication Ability: Effective Review of Systems Constitutional: + weakness; no body aches Ear, Nose, Mouth, Throat: + dry mouth and + sore throat Respiratory: + cough (non productive) Gastrointestinal: + nausea and + vomiting Integumentary: + dry skin Neurologic: + generalized weakness Psychiatric: + hopelessness Physical Exam 2 Vital Signs (Past 24 Hours): Last Vital Signs Temp 36.5 C 05/16/18 11:15 Pulse 100 H 05/16/18 11:50 Resp 18 05/16/18 11:50 BP 113/66 05/16/18 11:15 Pulse Ox 96 05/16/18 11:50 Physical Exam: Pt sitting upright in the hospital bed when I entered the room Constitutional: + ill appearing, + thin and + cachectic Eyes: PERRL, conjunctivae normal, anicteric sclerae ENMT: external ear and nose normal, oropharynx normal Neck: normal visual inspection Thyroid: normal thyroid Respiratory: normal respiratory effort and + cough Auscultation: + diminished lung sounds Cardiovascular: RRR, no murmur, no edema Heart Sounds: normal S1 and normal S2 Gastrointestinal (Abdomen): normal bowel sounds, soft, nontender, no hepatosplenomegaly Percussion/Palpation: abdomen soft Skin: no rashes, warm and dry + turgor decreased Psychiatric: A+Ox3, euthymic affect Affect: euthymic affect Thought Process: goal directed thought process Insight: good insight Judgement: good judgement Time Spent Midlevel Total time spent 125 minutes with > 50% of that time spent reviewing the chart, assessing the patient, discussing CODE STATUS and discussion goals of care with the patient and multiple family members at the bedside.
[2018-05-16] MEDS: LIDOCAINE 5% 1 PATCH TD SCH ×2 (16:01→17:39)
--- NOTE | 2018-05-16 19:34 | Hospitalist Progress Note ---
Date of Service May 16, 2018 Assessment & Plan (1) Acute respiratory failure with hypoxia and hypercapnia: This appears to be a combination of multiple factors including advancing stage 4 small cell lung ca, asthma/copd, decompensated CHF, pleural effusions, and ?infectious etiology (although not proven to date). Her pH was borderline low this am with high pCO2. Her body is trying to metabolically compensate for this but she would benefit from BIPAP. She was agreeable to use of such with naps/HS. Diuresis has led to a considerable contraction alkalosis. I do not think she would tolerate diamox at this time. There are plans to possibly perform a left-sided thoracentesis tomorrow if INR is down to a safe level. Consider steroids, abx if aggressive care is desired. Present on Admission?: Yes (2) Bilateral pleural effusion: s/p thoracentesis on RIGHT with 1000cc+ yielded. Fluid most c/w transudative at that time. Dr. Steele considering a left-sided thoracentesis if INR is safe to do so. Cytologies from the most recent thoracentesis are pending. (3) Acute on chronic diastolic (congestive) heart failure: Attempts at diuresis this admission have caused a considerable contraction alkalosis. Her urine is concentrated today and she does not look overtly fluid overloaded ( with exception of effusions). No diuresis today. (4) Primary small cell malignant neoplasm of lung, stage 4: s/p 2 rounds of chemo per the [facility]. She has not tolerated these well. Poor candidate for future chemo. She is considering hospice/palliative care. (5) Severe protein-calorie malnutrition: Ongoing (6) Hypothyroidism: TSH 2.8 on 02/2018. Cont synthroid as is. (7) Atrial fibrillation: Holding coumadin due to supratherapeutic INR (8) Asthma: ?exacerbation, although no wheezing or considerable cough low threshold for steroids (9) CAD (coronary artery disease): check troponin in am to exclude subacute AR leading to ongoing issues (10) Nausea & vomiting: resolved etiology? due to recent chemo? (11) DM type 2 (diabetes mellitus, type 2): add lantus 10 units daily (12) Hodgkin lymphoma: history of such now with macrocytosis, leukocytosis, etc development of new bone marrow process? may not be relevant if we elect to go in direction of palliative care (13) Tobacco use disorder: was smoking up until this admission nicoderm if desired (14) DVT prophylaxis: coumadin palliative care met with patient today -- their efforts greatly appreciated patient now DNR hospice is being considered sister updated at bedside twice today Subjective patient quite sleepy during my visit. her sister was at bedside. apparently she had 20+ visitors yesterday to celebrate her upcoming birthday and by night-fall last night she was exhausted. the patient was receiving a breathing treatment during my visit with her and was feeling asleep during such. she is still dyspneic and requiring oxygen. steve is in place. she was agreeable to use of limited amount of BIPAP today. Respiratory: + cough and + dyspnea Cardiovascular: no chest pain Gastrointestinal: no abdominal pain, no nausea and no vomiting Physical Exam 2 Vital Signs (Past 24 Hours): Last Vital Signs Temp 36.8 C 05/16/18 15:00 Pulse 87 05/16/18 15:30 Resp 18 05/16/18 15:30 BP 101/59 L 05/16/18 15:00 Pulse Ox 94 05/16/18 15:30 Constitutional: + ill appearing; no acute distress sleepy ENMT: external ear and nose normal, oropharynx normal Respiratory: Auscultation: + diminished lung sounds (both bases, worse on left ) very poor air movement b/l Cardiovascular: Rate/Rhythm: regular rate and regular rhythm Heart Sounds: normal S1 and normal S2 Vessels: posterior tibial pulses present and dorsalis pedis pulses present; no JVD Gastrointestinal (Abdomen): Inspection/Auscultation: normal bowel sounds; abdomen not distended Percussion/Palpation: abdomen soft; abdomen nontender, no guarding, abdomen not rigid and no hepatosplenomegaly Psychiatric: sleepy but oriented x 3 Results & Data Laboratory Results Laboratory Results - last 24 hr 05/15/18 05/16/18 05/16/18 20:46 07:35 07:47 WBC 17.08 H RBC 3.00 L Hgb 10.2 L Hct 32.0 L MCV 106.7 H MCH 34.0 MCHC 31.9 L RDW Std Deviation 63.6 H RDW Coeff of [place] 16.7 H Plt Count 406 H MPV 9.6 Immature Gran % (Auto) 0.6 Neut % (Auto) 85.5 Lymph % (Auto) 7.4 [place] % (Auto) 6.0 Eos % (Auto) 0.1 Baso % (Auto) 0.4 Immature Gran # (Auto) 0.10 H Neut # (Auto) 14.62 H Lymph # (Auto) 1.26 [place] # (Auto) 1.02 H Eos # (Auto) 0.02 Baso # (Auto) 0.06 PT INR VBG pH VBG pCO2 VBG pO2 VBG HCO3 VBG O2 Saturation VBG Base Excess Barometric Pressure Sodium Potassium Chloride Carbon Dioxide Anion Gap BUN Creatinine Est Cr Clr Drug Dosing Est GFR ( Amer) Est GFR (Non-Af Amer) BUN/Creatinine Ratio Glucose POC Glucose 147 H 240 H Calcium Total Bilirubin AST ALT Alkaline Phosphatase Total Protein Albumin Globulin Albumin/Globulin Ratio 05/16/18 05/16/18 05/16/18 07:47 07:47 07:47 WBC RBC Hgb Hct MCV MCH MCHC RDW Std Deviation RDW Coeff of [place] Plt Count MPV Immature Gran % (Auto) Neut % (Auto) Lymph % (Auto) [place] % (Auto) Eos % (Auto) Baso % (Auto) Immature Gran # (Auto) Neut # (Auto) Lymph # (Auto) [place] # (Auto) Eos # (Auto) Baso # (Auto) PT 52.7 H INR 5.8 H* VBG pH 7.35 L VBG pCO2 87 H VBG pO2 32 VBG HCO3 47 VBG O2 Saturation 62.4 VBG Base Excess 17.4 Barometric Pressure 726.8 Sodium 132 L Potassium 4.2 Chloride 87 L Carbon Dioxide 44 H* Anion Gap 1.0 L BUN 29 H Creatinine 0.47 L Est Cr Clr Drug Dosing 94.0 Est GFR ( Amer) 119.3 Est GFR (Non-Af Amer) 102.9 BUN/Creatinine Ratio 62.7 H Glucose 252 H POC Glucose Calcium 9.2 Total Bilirubin 0.4 AST 14 L ALT 29 Alkaline Phosphatase 107 Total Protein 6.8 Albumin 2.4 L Globulin 4.4 H Albumin/Globulin Ratio 0.5 L 05/16/18 05/16/18 11:35 16:37 WBC RBC Hgb Hct MCV MCH MCHC RDW Std Deviation RDW Coeff of [place] Plt Count MPV Immature Gran % (Auto) Neut % (Auto) Lymph % (Auto) [place] % (Auto) Eos % (Auto) Baso % (Auto) Immature Gran # (Auto) Neut # (Auto) Lymph # (Auto) [place] # (Auto) Eos # (Auto) Baso # (Auto) PT INR VBG pH VBG pCO2 VBG pO2 VBG HCO3 VBG O2 Saturation VBG Base Excess Barometric Pressure Sodium Potassium Chloride Carbon Dioxide Anion Gap BUN Creatinine Est Cr Clr Drug Dosing Est GFR ( Amer) Est GFR (Non-Af Amer) BUN/Creatinine Ratio Glucose POC Glucose 202 H 88 Calcium Total Bilirubin AST ALT Alkaline Phosphatase Total Protein Albumin Globulin Albumin/Globulin Ratio _ (1) Hypothyroidism Hypothyroidism type: acquired Qualified Code(s): E03.9 - Hypothyroidism, unspecified (2) Atrial fibrillation Atrial fibrillation type: chronic Qualified Code(s): I48.2 - Chronic atrial fibrillation (3) Asthma Asthma severity: moderate Asthma persistence: persistent Asthma complication type: uncomplicated Qualified Code(s): J45.40 - Moderate persistent asthma, uncomplicated (4) CAD (coronary artery disease) Coronary Disease-Associated Artery/Lesion type: [place] artery [place] vs. transplanted heart: [place] heart Associated angina: without angina Qualified Code(s): I25.10 - Atherosclerotic heart disease of [place] coronary artery without angina pectoris (5) Nausea & vomiting Vomiting type: unspecified Vomiting Intractability: unspecified Qualified Code(s): R11.2 - Nausea with vomiting, unspecified (6) DM type 2 (diabetes mellitus, type 2) Diabetes mellitus detention insulin use: without detention use Diabetes mellitus complication status: without complication Qualified Code(s): E11.9 - Type 2 diabetes mellitus without complications (7) Hodgkin lymphoma Hodgkin lymphoma type: unspecified type Lymphoma site: unspecified region Qualified Code(s): C81.90 - Hodgkin lymphoma, unspecified, unspecified site
[2018-05-16] MEDS: ASPIRIN 81 MG ECTAB PO SCH (21:34)
[2018-05-16] MEDS: ATORVASTATIN 40 MG TAB PO SCH (21:34)
[2018-05-17] MEDS: ALBUT/IPRATROP 3MG/0.5MG NEB 3 ML VIAL NEB SCH ×5 (04:45→20:14)
[2018-05-17] MEDS: LEVOTHYROXINE SODIUM 112 MCG TABLET PO SCH (06:29)
[2018-05-17] MEDS: ONDANSETRON INJ 2 MG/ML 2 ML VIAL IV PRN (06:42)
[2018-05-17] MEDS: HEPARIN 100 UNIT/ML 5ML FLUSH IV PRN (07:48)
[2018-05-17 08:26] LABS: Prothrombin Time 39.4 Seconds (9.0-12.0)
[2018-05-17] MEDS: FLUTICASONE PROPIONATE NA SPR 16 GM BTL SCH (08:33)
[2018-05-17] MEDS: VITAMIN B COMPLEX TAB PO SCH (08:33)
[2018-05-17] MEDS: MAGNESIUM OXIDE 400 MG TAB PO SCH ×2 (08:34→21:24)
[2018-05-17] MEDS: LORATADINE 10 MG TAB PO SCH (08:34)
[2018-05-17] MEDS: FOLIC ACID 1 MG TAB PO SCH (08:34)
[2018-05-17] MEDS: CLOTRIMAZOLE 10 MG TROCHE BUCCAL SCH ×5 (08:34→21:31)
[2018-05-17 08:35] LABS: INR 4.2 (0.9-1.1)
[2018-05-17] MEDS: FLUTICASONE/SALMETEROL 250/50 (ADVAIR) 14 PUFF/1 INHALER INH SCH ×2 (08:35→21:28)
[2018-05-17] MEDS: POLYETHYLENE (MIRALAX) 17 GM PACK PO SCH (08:36)
[2018-05-17] MEDS: DOCUSATE SODIUM 100 MG CAP PO SCH ×2 (08:37→21:28)
[2018-05-17] MEDS: CHOLECALCIFEROL 1,000 UNITS TAB PO SCH (08:37)
[2018-05-17] MEDS: PANTOprazole 40 MG TAB PO SCH (08:37)
[2018-05-17] MEDS: INSULIN GLARGINE SOLOSTAR 100 UNITS/ML 3 ML PEN SC SCH ×2 (08:38→22:46)
[2018-05-17 08:41] LABS: BUN Creatinine Ratio 71.8 (10-20); Calcium 9.1 mg/dl (8.5-10.1); Creatinine Clr Calc Pharmacy 149.7 ml/min; Est GFR (African American) 139.8; Est GFR (Non-African American) 120.7; Potassium 4.1 mmol/L (3.5-5.1)
[2018-05-17] MEDS: METOPROLOL SUCC 50MG EXT REL TAB PO SCH (08:41)
[2018-05-17 08:50] LABS: Troponin I 0.033 ng/ml (0-0.045)
--- NOTE | 2018-05-17 09:13 | XRay Report ---
XR chest 1V portable CLINICAL HISTORY: pleural effusions COMPARISON STUDY: 05/15/2018 FINDINGS: The heart remains enlarged. A left-sided A-Port catheter is again visualized. There are pos tsurgical changes of a midline sternotomy. There are persistent bilateral pleural effusions left grea ter than right. There is continued radiographic evidence of congestive failure/fluid overload. Basila r airspace opacities persist.[ IMPRESSION: 1. Persistent bilateral pleural effusions, bilateral pulmonary airspace opacities, and superimposed p ulmonary vascular congestion. Electronically signed by: Jeromy Torres M.D. 05/17/2018 9:12 AM
[2018-05-17] MEDS ORDERED: predniSONE 20 MG TAB PO STA (12:42)
[2018-05-17] MEDS: levoFLOXacin 750 MG TAB PO SCH (15:57)
[2018-05-17] MEDS: LACTOBACILLUS ACIDOPHILUS (FLORANEX) TAB PO SCH (18:19)
[2018-05-17] MEDS: LIDOCAINE 5% 1 PATCH TD SCH ×2 (18:44)
--- NOTE | 2018-05-17 21:14 | Hospitalist Progress Note ---
Date of Service May 17, 2018 Assessment & Plan (1) Acute respiratory failure with hypoxia and hypercapnia: Combination of multiple factors including advancing stage 4 small cell lung ca, asthma/copd, decompensated CHF, pleural effusions, and ?infectious etiology/pneumonia? Diuresis led to a considerable contraction alkalosis. I do not think she would tolerate diamox at this time especially with her refusing to use BIPAP. Will add PO levaquin in the event she has a pneumonia process. Also add PO steroids for COPD/asthma exacerbation. Supportive care. Possible left-sided thoracentesis tomorrow if INR is safe to do so. (2) Bilateral pleural effusion: s/p thoracentesis on RIGHT with 1000cc+ yielded. Cytologies negative. Fluid most c/w transudative at that time. Dr. Steele considering a left-sided thoracentesis. (3) Acute on chronic diastolic (congestive) heart failure: Attempts at diuresis this admission have caused a considerable contraction alkalosis. She does not look overtly fluid overloaded (with exception of effusions). No diuresis at this time. (4) Primary small cell malignant neoplasm of lung, stage 4: s/p 2 rounds of chemo per the [facility]. She has not tolerated these well. Poor candidate for future chemo. She is considering hospice/palliative care. Dr. Doshi's earlier consult appreciated. I did speak to patient about hospice today. Sister was present during that conversation. (5) Severe protein-calorie malnutrition: Ongoing (6) Hypothyroidism: TSH 2.8 on 02/2018. Cont synthroid as is. (7) Atrial fibrillation: Holding coumadin due to supratherapeutic INR (8) Asthma: probable exacerbation. start prednisone 40mg daily. cont nebs. (9) CAD (coronary artery disease): troponin negative. no ischemic symptoms. (10) Nausea & vomiting: resolved etiology? due to recent chemo? (11) DM type 2 (diabetes mellitus, type 2): lantus 10 units daily added adjust novolog if needed if AC sugars cont to run high especially w/ addition of prednisone (12) Hodgkin lymphoma: history of such now with macrocytosis, leukocytosis, etc development of new bone marrow process? may not be relevant if we elect to go in direction of palliative care (13) Tobacco use disorder: was smoking up until this admission nicoderm if desired (14) DVT prophylaxis: coumadin appreciate palliative care team assistance lengthy discussion (20+ minutes) held with pt & her sister today discussing options for care we spent much time discussing hospice patient still considering all options but seems to be leaning hospice direction? ? Subjective patient much more awake, alert today slept better overnight coughing up thick, green sputum overall very weak no new complaints patient still trying to figure out goals for care and seeking various opinions from various providers and family members Constitutional: + fatigue, + weakness and + anorexia; no fever Ear, Nose, Mouth, Throat: no sore throat Respiratory: + cough, + dyspnea, + dyspnea on exertion, + sputum production and + wheezing; no hemoptysis Cardiovascular: no chest pain Gastrointestinal: no abdominal pain Physical Exam 2 Vital Signs (Past 24 Hours): Last Vital Signs Temp 36.6 C 05/17/18 19:51 Pulse 84 05/17/18 20:15 Resp 18 05/17/18 20:15 BP 109/64 05/17/18 19:51 Pulse Ox 97 05/17/18 20:15 Constitutional: + ill appearing; no acute distress ENMT: external ear and nose normal, oropharynx normal Respiratory: Auscultation: + diminished lung sounds (both bases, worse on left ), + rales and + wheezes Cardiovascular: Rate/Rhythm: regular rate and regular rhythm Heart Sounds: normal S1 and normal S2 Vessels: posterior tibial pulses present and dorsalis pedis pulses present; no JVD Gastrointestinal (Abdomen): Inspection/Auscultation: normal bowel sounds; abdomen not distended Percussion/Palpation: abdomen soft; abdomen nontender, no guarding, abdomen not rigid and no hepatosplenomegaly Psychiatric: A+Ox3, euthymic affect Results & Data Laboratory Results Laboratory Results - last 24 hr 05/13/18 05/17/18 05/17/18 14:30 07:46 07:46 PT 39.4 H INR 4.2 H Sodium 134 L Potassium 4.1 Chloride 88 L Carbon Dioxide 48 H* Anion Gap -3.0 L BUN 21 H Creatinine 0.29 L Est Cr Clr Drug Dosing 149.7 Est GFR ( Amer) 139.8 Est GFR (Non-Af Amer) 120.7 BUN/Creatinine Ratio 71.8 H Glucose 156 H POC Glucose Calcium 9.1 Troponin I 0.033 Pleural Cholesterol 28 05/17/18 05/17/18 05/17/18 08:03 11:43 16:28 PT INR Sodium Potassium Chloride Carbon Dioxide Anion Gap BUN Creatinine Est Cr Clr Drug Dosing Est GFR ( Amer) Est GFR (Non-Af Amer) BUN/Creatinine Ratio Glucose POC Glucose 152 H 126 H 138 H Calcium Troponin I Pleural Cholesterol 05/17/18 20:39 PT INR Sodium Potassium Chloride Carbon Dioxide Anion Gap BUN Creatinine Est Cr Clr Drug Dosing Est GFR ( Amer) Est GFR (Non-Af Amer) BUN/Creatinine Ratio Glucose POC Glucose 266 H Calcium Troponin I Pleural Cholesterol _ (1) Hodgkin lymphoma Hodgkin lymphoma type: unspecified type Lymphoma site: unspecified region Qualified Code(s): C81.90 - Hodgkin lymphoma, unspecified, unspecified site (2) DM type 2 (diabetes mellitus, type 2) Chronic kidney disease stage: Diabetes mellitus complication detail: Diabetes mellitus complication status: without complication Diabetes mellitus [employer] insulin use: without [employer] use Diabetes mellitus macular edema: Diabetic retinopathy severity: Laterality: Proliferative retinopathy type : Qualified Code(s): E11.9 - Type 2 diabetes mellitus without complications (3) CAD (coronary artery disease) Associated angina: without angina Coronary Disease-Associated Artery/Lesion type: [place] artery [place] vs. transplanted heart: [place] heart Qualified Code (s): I25.10 - Atherosclerotic heart disease of [place] coronary artery without angina pectoris (4) Atrial fibrillation Atrial fibrillation type: chronic Qualified Code(s): I48.2 - Chronic atrial fibrillation (5) Hypothyroidism Hypothyroidism type: acquired Qualified Code(s): E03.9 - Hypothyroidism, unspecified (6) Nausea & vomiting Vomiting Intractability: unspecified Vomiting type: unspecified Qualified Code(s): R11.2 - Nausea with vomiting, unspecified (7) Asthma Asthma complication type: uncomplicated Asthma persistence: persistent Asthma severity: moderate Qualified Code(s): J45.40 - Moderate persistent asthma, uncomplicated
[2018-05-17] MEDS: ASPIRIN 81 MG ECTAB PO SCH (21:23)
[2018-05-18] MEDS: CLOTRIMAZOLE 10 MG TROCHE BUCCAL SCH ×5 (05:48→21:48)
[2018-05-18] MEDS: LEVOTHYROXINE SODIUM 112 MCG TABLET PO SCH (05:49)
[2018-05-18 06:07] LABS: Prothrombin Time 41.2 Seconds (9.0-12.0)
[2018-05-18 06:32] LABS: INR 4.5 (0.9-1.1)
[2018-05-18 06:41] LABS: BUN Creatinine Ratio 75.2 (10-20); Blood Urea Nitrogen 17 mg/dl (7-18); Carbon Dioxide 44 mmol/L (21-32); Chloride 90 mmol/L (98-107); Creatinine Clr Calc Pharmacy 188.8 ml/min; Est GFR (African American) > 150.0; Est GFR (Non-African American) 130.2; Glucose 98 mg/dl (70-99); Potassium 4.3 mmol/L (3.5-5.1); Sodium 135 mmol/L (136-145)
[2018-05-18] MEDS: FLUTICASONE PROPIONATE NA SPR 16 GM BTL SCH (07:31)
[2018-05-18] MEDS: POLYETHYLENE (MIRALAX) 17 GM PACK PO SCH (07:31)
[2018-05-18] MEDS: MAGNESIUM OXIDE 400 MG TAB PO SCH ×2 (07:32→21:40)
[2018-05-18] MEDS: FOLIC ACID 1 MG TAB PO SCH (07:32)
[2018-05-18] MEDS: METOPROLOL SUCC 50MG EXT REL TAB PO SCH ×2 (07:33→13:30)
[2018-05-18] MEDS: LACTOBACILLUS ACIDOPHILUS (FLORANEX) TAB PO SCH ×3 (07:33→17:25)
[2018-05-18] MEDS: DOCUSATE SODIUM 100 MG CAP PO SCH ×2 (07:33→21:43)
[2018-05-18] MEDS: LORATADINE 10 MG TAB PO SCH (07:33)
[2018-05-18] MEDS: FLUTICASONE/SALMETEROL 250/50 (ADVAIR) 14 PUFF/1 INHALER INH SCH ×2 (07:34→21:48)
[2018-05-18] MEDS: PANTOprazole 40 MG TAB PO SCH (07:34)
[2018-05-18] MEDS: INSULIN GLARGINE SOLOSTAR 100 UNITS/ML 3 ML PEN SC SCH ×2 (07:35→21:47)
[2018-05-18] MEDS: ALBUT/IPRATROP 3MG/0.5MG NEB 3 ML VIAL NEB SCH ×4 (07:40→19:42)
--- NOTE | 2018-05-18 15:26 | Progress Note ---
DATE: 05/18/2018 Mrs. Preston was seen today. She states that she feels better. She has markedly decreased breath sounds in both bases; in fact today I think it is even worse on the right. Unfortunately, the patient's INR remains over 4. Yesterday's x-ray shows significant effusion on the left side. She does feel better however. I think at this point she is only on 4 liters 99% sats and I would probably hold off for the thoracentesis. We discussed with the primary care service about perhaps trying to reverse her bit so we can tap her. I would like to have her INR under 4.
[2018-05-18] MEDS: LIDOCAINE 5% 1 PATCH TD SCH ×2 (17:05→17:06)
--- NOTE | 2018-05-18 18:53 | Hospitalist Progress Note ---
Date of Service May 18, 2018 Assessment & Plan (1) Acute respiratory failure with hypoxia and hypercapnia: Combination of multiple factors including advancing stage 4 small cell lung ca, asthma/copd, decompensated CHF, pleural effusions, and suspected acute bronchitis and/or pneumonia. Diuresis led to a considerable contraction alkalosis. I do not think she would tolerate diamox at this time especially with her refusing to use BIPAP. CHF likely as compensated as possible (exception - pleural effusions). Cont prednisone 40mg daily. Cont levaquin total 7 days; today is day #2. Possible left-sided thoracentesis tomorrow if INR is <4. (2) Bilateral pleural effusion: s/p thoracentesis on RIGHT with 1000cc+ yielded. Cytologies negative. Fluid most c/w transudative at that time. Dr. Steele considering a left-sided thoracentesis once INR is <4 (3) Acute on chronic diastolic (congestive) heart failure: Attempts at diuresis this admission caused a considerable contraction alkalosis. She does not look overtly fluid overloaded (with exception of effusions). No diuresis at this time. (4) Primary small cell malignant neoplasm of lung, stage 4: s/p 2 rounds of chemo per the [facility]. She has not tolerated these well. Poor candidate for future chemo. She is considering hospice/palliative care vs ongoing chemo. Dr. Doshi's earlier consult appreciated. Numerous conversations this admission about options for care and palliative care team is involved as well; their efforts appreciated. (5) Severe protein-calorie malnutrition: Ongoing (6) Hypothyroidism: TSH 2.8 on 02/2018. Cont synthroid as is. (7) Atrial fibrillation: Holding coumadin due to supratherapeutic INR (8) Asthma: probable exacerbation. cont prednisone 40mg daily. cont nebs. (9) CAD (coronary artery disease): troponin negative. no ischemic symptoms. (10) Nausea & vomiting: resolved (11) DM type 2 (diabetes mellitus, type 2): control improved today w/ addition of lantus (12) Hodgkin lymphoma: history of such now with macrocytosis, leukocytosis, etc development of new bone marrow process? may not be relevant if we elect to go in direction of palliative care (13) Tobacco use disorder: was smoking up until this admission nicoderm if desired (14) DVT prophylaxis: coumadin awaiting disposition - uncertain at this time Subjective patient feels better today cough improved not as much sputum appetite a little better not as tired thoracentesis deferred today due to high INR Constitutional: no fever and no chills Respiratory: no hemoptysis Cardiovascular: no chest pain Gastrointestinal: + constipation; no abdominal pain Physical Exam 2 Vital Signs (Past 24 Hours): Last Vital Signs Temp 36.8 C 05/18/18 14:52 Pulse 96 H 05/18/18 15:04 Resp 18 05/18/18 15:04 BP 99/58 L 05/18/18 14:52 Pulse Ox 99 05/18/18 15:04 Constitutional: + ill appearing and + cachectic; no acute distress but looks better than yesterday ENMT: external ear and nose normal, oropharynx normal Respiratory: Auscultation: + diminished lung sounds (both bases, worse on left ) rales/wheezes improved Cardiovascular: Rate/Rhythm: regular rate and regular rhythm Heart Sounds: normal S1 and normal S2 Vessels: posterior tibial pulses present and dorsalis pedis pulses present; no JVD Gastrointestinal (Abdomen): Inspection/Auscultation: normal bowel sounds Percussion/Palpation: abdomen soft; abdomen nontender, no guarding, abdomen not rigid and no hepatosplenomegaly Psychiatric: A+Ox3, euthymic affect Results & Data Laboratory Results Laboratory Results - last 24 hr 05/13/18 05/17/18 05/17/18 14:30 20:39 22:05 PT INR Sodium Potassium Chloride Carbon Dioxide Anion Gap BUN Creatinine Est Cr Clr Drug Dosing Est GFR ( Amer) Est GFR (Non-Af Amer) BUN/Creatinine Ratio Glucose POC Glucose 266 H 200 H Calcium Pleural Cholesterol 28 05/18/18 05/18/18 05/18/18 05:10 05:10 07:58 PT 41.2 H INR 4.5 H Sodium 135 L Potassium 4.3 Chloride 90 L Carbon Dioxide 44 H* Anion Gap 1.0 L BUN 17 Creatinine 0.23 L Est Cr Clr Drug Dosing 188.8 Est GFR ( Amer) > 150.0 Est GFR (Non-Af Amer) 130.2 BUN/Creatinine Ratio 75.2 H Glucose 98 POC Glucose 96 Calcium 9.0 Pleural Cholesterol 05/18/18 05/18/18 11:45 16:41 PT INR Sodium Potassium Chloride Carbon Dioxide Anion Gap BUN Creatinine Est Cr Clr Drug Dosing Est GFR ( Amer) Est GFR (Non-Af Amer) BUN/Creatinine Ratio Glucose POC Glucose 121 H 173 H Calcium Pleural Cholesterol _ (1) Hodgkin lymphoma Hodgkin lymphoma type: unspecified type Lymphoma site: unspecified region Qualified Code(s): C81.90 - Hodgkin lymphoma, unspecified, unspecified site (2) DM type 2 (diabetes mellitus, type 2) Chronic kidney disease stage: Diabetes mellitus complication detail: Diabetes mellitus complication status: without complication Diabetes mellitus fpc insulin use: without fpc use Diabetes mellitus macular edema: Diabetic retinopathy severity: Laterality: Proliferative retinopathy type : Qualified Code(s): E11.9 - Type 2 diabetes mellitus without complications (3) CAD (coronary artery disease) Associated angina: without angina Coronary Disease-Associated Artery/Lesion type: [place] artery [place] vs. transplanted heart: [place] heart Qualified Code (s): I25.10 - Atherosclerotic heart disease of [place] coronary artery without angina pectoris (4) Atrial fibrillation Atrial fibrillation type: chronic Qualified Code(s): I48.2 - Chronic atrial fibrillation (5) Hypothyroidism Hypothyroidism type: acquired Qualified Code(s): E03.9 - Hypothyroidism, unspecified (6) Nausea & vomiting Vomiting Intractability: unspecified Vomiting type: unspecified Qualified Code(s): R11.2 - Nausea with vomiting, unspecified (7) Asthma Asthma complication type: uncomplicated Asthma persistence: persistent Asthma severity: moderate Qualified Code(s): J45.40 - Moderate persistent asthma, uncomplicated
[2018-05-18] MEDS: ASPIRIN 81 MG ECTAB PO SCH (21:40)
[2018-05-19] MEDS: ONDANSETRON INJ 2 MG/ML 2 ML VIAL IV PRN ×2 (01:55→21:48)
[2018-05-19] MEDS: HEPARIN 100 UNIT/ML 5ML FLUSH IV PRN ×2 (01:58→05:57)
[2018-05-19] MEDS: LEVOTHYROXINE SODIUM 112 MCG TABLET PO SCH (06:21)
[2018-05-19 06:33] LABS: INR 2.1 (0.9-1.1); Prothrombin Time 20.6 Seconds (9.0-12.0)
[2018-05-19] MEDS: CLOTRIMAZOLE 10 MG TROCHE BUCCAL SCH ×5 (06:36→21:45)
[2018-05-19] MEDS: ALBUT/IPRATROP 3MG/0.5MG NEB 3 ML VIAL NEB SCH ×4 (07:04→19:32)
[2018-05-19] MEDS: FLUTICASONE PROPIONATE NA SPR 16 GM BTL SCH (07:24)
[2018-05-19] MEDS: MAGNESIUM OXIDE 400 MG TAB PO SCH ×2 (07:24→21:43)
[2018-05-19] MEDS: FLUTICASONE/SALMETEROL 250/50 (ADVAIR) 14 PUFF/1 INHALER INH SCH ×2 (07:24→21:41)
[2018-05-19] MEDS: levoFLOXacin 750 MG TAB PO SCH (07:24)
[2018-05-19] MEDS: FOLIC ACID 1 MG TAB PO SCH (07:24)
[2018-05-19] MEDS: POLYETHYLENE (MIRALAX) 17 GM PACK PO SCH (07:25)
[2018-05-19] MEDS: DOCUSATE SODIUM 100 MG CAP PO SCH ×2 (07:25→21:42)
[2018-05-19] MEDS: METOPROLOL SUCC 50MG EXT REL TAB PO SCH (07:46)
[2018-05-19] MEDS: LORATADINE 10 MG TAB PO SCH (07:46)
[2018-05-19] MEDS: PANTOprazole 40 MG TAB PO SCH (07:47)
[2018-05-19] MEDS: LACTOBACILLUS ACIDOPHILUS (FLORANEX) TAB PO SCH ×3 (07:48→18:18)
[2018-05-19] MEDS: INSULIN GLARGINE SOLOSTAR 100 UNITS/ML 3 ML PEN SC SCH ×2 (07:49→21:45)
[2018-05-19] MEDS ORDERED: SODIUM CHLORIDE 0.9% 250 ML IV PRN (08:18)
--- NOTE | 2018-05-19 13:36 | XRay Report ---
SINGLE VIEW CHEST CLINICAL HISTORY: Pleural effusion. FINDINGS: An AP, portable, upright chest radiograph is compared to study dated 05/17/2018 and correlat ed with chest CT dated 02/22/2018. The examination is degraded by portable technique and patient rota tion. A left subclavian central venous infusion port is unchanged in position. The patient is status post midline sternotomy. The heart is top normal for projection, noting atherosclerotic calcification of the thoracic aorta. Calcified mediastinal lymph nodes are observed. Apical scarring and left uppe r lobe paramediastinal density are similar to previous. Emphysema is noted. There are bilateral pleur al effusions, right larger than left with associated bibasilar consolidation. The left pleural effusi on has decreased in size from previous. No pneumothorax is seen. The skeletal structures are osteopen ic. The bony thorax is grossly intact. Calcific tendinopathy is seen in the shoulders. Surgical clips are present throughout the upper abdomen. IMPRESSION: 1. There are small pleural effusions, right larger left with bibasilar consolidation. The left pleura l effusion has decreased in size from previous. 2. Emphysema and chronic parenchymal changes as above. Small pulmonary lesions seen by CT are not wel l-visualized by x-ray. 3. Additional findings as above. Electronically signed by: Jean Gant M.D. 05/19/2018 1:35 PM
[2018-05-19] MEDS: WARFARIN SOD 5 MG TAB PO SCH (15:54)
[2018-05-19] MEDS: SODIUM CHLORIDE 0.9% 1000ML 1,000 ML IV SCH (18:10)
[2018-05-19] MEDS: LIDOCAINE 5% 1 PATCH TD SCH ×2 (18:13)
--- NOTE | 2018-05-19 20:14 | Hospitalist Progress Note ---
Date of Service May 19, 2018 Assessment & Plan (1) Acute respiratory failure with hypoxia and hypercapnia: Combination of multiple factors including advancing stage 4 small cell lung ca, asthma/copd, decompensated CHF, pleural effusions, and suspected acute bronchitis and/or pneumonia. Diuresis led to a considerable contraction alkalosis. Either way at this point she looks volume depleted due to poor oral intake. Cont prednisone daily. Cont levaquin total 7 days; today is day #3. s/p left-sided thoracentesis today. Dr. Steele mentioned possibility of a pleurX catheter for her; will defer that decision to him. (2) Bilateral pleural effusion: s/p thoracentesis on RIGHT with 1000cc+ yielded. Cytologies negative. Fluid most c/w transudative at that time. s/p left-sided thoracentesis today yielding 800cc of fluid. ?pleurX? (3) Acute on chronic diastolic (congestive) heart failure: Attempts at diuresis this admission caused a considerable contraction alkalosis. She does not look overtly fluid overloaded at this time. If anything she looks volume contracted clinically and has concentrated urine. Will give 500cc of NS tonight and reassess in am. (4) Primary small cell malignant neoplasm of lung, stage 4: s/p 2 rounds of chemo per the [facility]. She has not tolerated these well. Poor candidate for future chemo. She is considering hospice/palliative care vs ongoing chemo. Dr. Doshi's earlier consult appreciated. I spoke with Dr. Doshi and he plans to visit with her tomorrow. Numerous conversations this admission about options for care and palliative care team is involved as well; their efforts appreciated. (5) Severe protein-calorie malnutrition: Ongoing (6) Hypothyroidism: TSH 2.8 on 02/2018. Cont synthroid as is. (7) Atrial fibrillation: Holding coumadin as she may need pleurX catheter (8) Asthma: probable exacerbation. cont prednisone 60mg daily. cont nebs. (9) CAD (coronary artery disease): troponin negative. no ischemic symptoms. (10) Nausea & vomiting: resolved (11) DM type 2 (diabetes mellitus, type 2): controlled w/ once daiyl lantus (12) Hodgkin lymphoma: history of such now with macrocytosis, leukocytosis, etc development of new bone marrow process? may not be relevant if we elect to go in direction of palliative care (13) Tobacco use disorder: was smoking up until this admission (14) Gross hematuria: resolving steve trauma in setting of coumadin? UTI? other? observe send u/a and urine cx - Rx for UTI if necessary but levaquin should cover urinary tract to a degree (15) DVT prophylaxis: coumadin awaiting disposition - uncertain at this time PT, OT to help with dispo planning home w/ hospice? SNF? other? Subjective pt underwent left-sided thoracentesis by Dr. Steele today yielding 800cc of fluid she felt better following such staff report intermittent confusion she also apparently had blood in her steve catheter today by the time of my visit her urine was clear she is pondering her options for care; she is still considering pursuing additional chemotherapy she reports that "HE" - her friend - has her POA she also mentions an ip technology transactions attorney is coming in the AM to complete a living will and other legal documents Constitutional: + weakness Respiratory: + cough and + sputum production Gastrointestinal: no abdominal pain Genitourinary (Female): + problem reported (reports she has bladder pain) Physical Exam 2 Vital Signs (Past 24 Hours): Last Vital Signs Temp 36.8 C 05/19/18 19:16 Pulse 99 H 05/19/18 19:33 Resp 22 05/19/18 19:33 BP 103/57 L 05/19/18 19:16 Pulse Ox 96 05/19/18 19:33 Constitutional: + ill appearing and + cachectic; no acute distress ENMT: external ear and nose normal, oropharynx normal Respiratory: Auscultation: + diminished lung sounds (both bases, but improved airation on left s/p thoracentesis today), + rales and + wheezes (scattered) Cardiovascular: Rate/Rhythm: regular rate and regular rhythm Heart Sounds: normal S1 and normal S2 Vessels: posterior tibial pulses present and dorsalis pedis pulses present; no JVD Gastrointestinal (Abdomen): Inspection/Auscultation: normal bowel sounds; abdomen not distended Percussion/Palpation: abdomen soft; abdomen nontender, no guarding, abdomen not rigid and no hepatosplenomegaly Psychiatric: A+Ox3, euthymic affect Results & Data Laboratory Results Laboratory Results - last 24 hr 05/18/18 05/19/18 05/19/18 20:13 05:54 07:35 PT 20.6 H INR 2.1 H POC Glucose 118 H 110 H 05/19/18 05/19/18 11:32 16:40 PT INR POC Glucose 147 H 137 H _ (1) Hodgkin lymphoma Hodgkin lymphoma type: unspecified type Lymphoma site: unspecified region Qualified Code(s): C81.90 - Hodgkin lymphoma, unspecified, unspecified site (2) DM type 2 (diabetes mellitus, type 2) Chronic kidney disease stage: Diabetes mellitus complication detail: Diabetes mellitus complication status: without complication Diabetes mellitus roof panel hanger insulin use: without skilled nursing use Diabetes mellitus macular edema: Diabetic retinopathy severity: Laterality: Proliferative retinopathy type : Qualified Code(s): E11.9 - Type 2 diabetes mellitus without complications (3) CAD (coronary artery disease) Associated angina: without angina Coronary Disease-Associated Artery/Lesion type: [place] artery [place] vs. transplanted heart: [place] heart Qualified Code (s): I25.10 - Atherosclerotic heart disease of [place] coronary artery without angina pectoris (4) Atrial fibrillation Atrial fibrillation type: chronic Qualified Code(s): I48.2 - Chronic atrial fibrillation (5) Hypothyroidism Hypothyroidism type: acquired Qualified Code(s): E03.9 - Hypothyroidism, unspecified (6) Nausea & vomiting Vomiting Intractability: unspecified Vomiting type: unspecified Qualified Code(s): R11.2 - Nausea with vomiting, unspecified (7) Asthma Asthma complication type: uncomplicated Asthma persistence: persistent Asthma severity: moderate Qualified Code(s): J45.40 - Moderate persistent asthma, uncomplicated
[2018-05-19] MEDS: ASPIRIN 81 MG ECTAB PO SCH (21:43)
[2018-05-19] MEDS: ALBUTEROL HFA 8 GM INHALER INH PRN (22:33)
--- NOTE | 2018-05-20 00:11 | Operative Report ---
DATE OF OPERATION: 05/19/2018 PREOPERATIVE DIAGNOSIS: Small cell lung carcinoma with bilateral pleural effusions. POSTOPERATIVE DIAGNOSIS: Small cell lung carcinoma with bilateral pleural effusions. PROCEDURE: Left thoracentesis under ultrasound guidance. SURGEON: Walt Steele MD BRICK WHEELER: TATUM [place]. ANESTHESIA: Local. DESCRIPTION OF PROCEDURE: The patient is sitting upright. We used an ultrasound to find a good window into the left chest. She was prepped and draped in a usual sterile fashion. Appropriate timeout have been called, 25 gauge needle with 1% Xylocaine without epinephrine used to anesthetize skin and subcutaneous tissues and we raised the skin wheal and then placed a large bore needle into the pleural cavity. We got free flowing, light colored fluid out. A guidewire was inserted and needle removed. A dilator was gently slid over this and removed and then a triple lumen catheter was placed. This was placed into 17 cm and the guidewire was removed. An 800 mL of fluid was drained from the patient's left pleural cavity and she felt much better, but had some reexpansion pain and some reexpansion coughing. This settled down fairly quickly and she looked quite good at the conclusion of the case. Her x-ray had improved quite a bit on the left. She tolerated it well. Appropriate labs were sent. I attest to the content of the Intraoperative Record and any orders documented therein. Any exception s are noted below.
[2018-05-20] MEDS: SODIUM CHLORIDE 0.9% 1000ML 1,000 ML IV SCH ×2 (03:01→12:32)
[2018-05-20] MEDS: LEVOTHYROXINE SODIUM 112 MCG TABLET PO SCH (05:36)
[2018-05-20] MEDS: CLOTRIMAZOLE 10 MG TROCHE BUCCAL SCH ×5 (05:36→23:37)
[2018-05-20 06:06] LABS: INR 1.4 (0.9-1.1)
[2018-05-20 06:31] LABS: BUN Creatinine Ratio 45.1 (10-20); Blood Urea Nitrogen 10 mg/dl (7-18); Calcium 8.2 mg/dl (8.5-10.1); Carbon Dioxide 43 mmol/L (21-32); Chloride 92 mmol/L (98-107); Creatinine Clr Calc Pharmacy 188.2 ml/min; Est GFR (African American) > 150.0; Est GFR (Non-African American) 130.2; Glucose 71 mg/dl (70-99); Potassium 4.1 mmol/L (3.5-5.1); Sodium 137 mmol/L (136-145)
[2018-05-20] MEDS: ALBUT/IPRATROP 3MG/0.5MG NEB 3 ML VIAL NEB SCH ×4 (07:09→19:48)
[2018-05-20] MEDS: METOPROLOL SUCC 50MG EXT REL TAB PO SCH (07:25)
[2018-05-20] MEDS: LACTOBACILLUS ACIDOPHILUS (FLORANEX) TAB PO SCH ×3 (07:25→16:56)
[2018-05-20] MEDS: LORATADINE 10 MG TAB PO SCH (07:25)
[2018-05-20] MEDS: FOLIC ACID 1 MG TAB PO SCH (07:26)
[2018-05-20] MEDS: FLUTICASONE/SALMETEROL 250/50 (ADVAIR) 14 PUFF/1 INHALER INH SCH ×2 (07:26→20:47)
[2018-05-20] MEDS: POLYETHYLENE (MIRALAX) 17 GM PACK PO SCH (07:27)
[2018-05-20] MEDS: DOCUSATE SODIUM 100 MG CAP PO SCH ×2 (07:27→20:47)
[2018-05-20] MEDS: FLUTICASONE PROPIONATE NA SPR 16 GM BTL SCH (07:27)
[2018-05-20] MEDS: MAGNESIUM OXIDE 400 MG TAB PO SCH ×2 (07:28→20:47)
[2018-05-20] MEDS: PANTOprazole 40 MG TAB PO SCH (07:28)
[2018-05-20] MEDS: INSULIN GLARGINE SOLOSTAR 100 UNITS/ML 3 ML PEN SC SCH ×2 (07:38→20:47)
[2018-05-20] MEDS: predniSONE 20 MG TAB PO SCH (07:54)
--- NOTE | 2018-05-20 09:01 | Progress Note ---
DATE: 05/20/2018 Ms. Preston was seen today. She states that she feels better after having the fluid drained, although she still is struggling a bit from her breathing. I am quite happy with her x-ray yesterday. The cytology on her right sided fluid was negative. Cytology is still pending on the left. Right now the patient is discussing the options of going on just supportive care versus chemotherapy. I will leave that up to the patient and Dr. Doshi. From my standpoint, I would be glad to put a PleurX in if this fluid reaccumulates. She tolerated it well in the past.
--- NOTE | 2018-05-20 09:19 | Progress Note ---
DATE: 05/20/2018 DIAGNOSES: 1. Extensive stage small cell lung cancer. 2. Acute respiratory failure with hypoxia and hypercapnia. 3. Bilateral pleural effusions. 4. Acute on chronic diastolic heart failure. 5. Anorexia/weight loss. 6. Coronary artery disease. 7. Type 2 diabetes mellitus. SUBJECTIVE: The patient is a pleasant 67-year-old female well known to [facility], currently under my care for extensive stage lung cancer. She was originally diagnosed in late 02/2018 and started on combination of etoposide and cisplatin on 03/30/2018. She had completed 2 full cycles and was due to begin cycle #3 when she was admitted to hospital. The patient has several issues, bilateral pleural effusions, failing performance status, anorexia with weight loss. I had been in to see her initially on 05/14/2018 and recommended she strongly consider abandoning further chemotherapy. She is now in her 12th hospital day with very little clinical improvement. She states she is still not eating adequately. She is quite weak. I was contacted by Dr. Guerin by phone and he would like to proceed with a palliative consultation. I am in favor of heading in a supportive direction. Specifically asked me to come up and talk with the patient about switching gears from an aggressive therapeutic approach to a palliative one. PHYSICAL EXAMINATION: GENERAL: She is a cachectic appearing 67-year-old female patient in no acute distress. VITAL SIGNS: Temperature 36.5, pulse 97, respiratory rate 16, blood pressure 104/61. SKIN: Without rash or lesion. HEENT: Oral mucosa is dry. No buccal lesions or ulcerations. NECK: Supple. Trachea midline. LUNGS: Diminished breath sounds in the left posterior base. CARDIAC: Regular rate and rhythm. ABDOMEN: Soft, nontender, nondistended. EXTREMITIES: No clubbing, cyanosis or edema. NEUROLOGIC: She is grossly intact. LABORATORY DATA: Sodium 137, potassium 4.1, chloride 92, carbon dioxide 43, creatinine is 0.23, BUN 10. RADIOGRAPHIC DATA: Chest x-ray performed yesterday reveals: 1. Small pleural effusions, right greater than left with bibasilar consolidation. 2. Emphysema and chronic parenchymal changes. IMPRESSION: 1. Acute respiratory failure with hypoxia and hypercapnia. 2. Bilateral pleural effusions. 3. Acute on chronic diastolic heart failure. 4. Failure to thrive. 5. Anorexia/weight loss. 6. Extensive stage small cell lung cancer. PLAN: Again I was asked by Dr. Guerin to readdress my intention moving forward in the patient's care. She is now on her 12th hospital day with very little clinical improvement. Her appetite remains quite poor. Litzy is protein malnourished and not ambulating readily. Study upon study has demonstrated pushing chemotherapy forward for patients with poor performance status is counterproductive. In my opinion, I feel further chemotherapy will most likely expedite her and not extend her life. The impact on her life quality moving forward would also be affected adversely by further chemotherapeutics. Alternatively, giving her a lesser dose would probably not be efficacious and again would not necessarily prolong her life. I strongly encouraged her to consider a palliative approach. Her family will gather later on today to complete the patient's will and power of employment law attorney. I also asked the patient not to be influenced by family members in making a decision with treatment moving forward. I would be more than happy to come up to discuss the matter with the family. Thank you very much for assisting us in the care of this very pleasant and unfortunate patient. ZANDRA
[2018-05-20] MEDS: levoFLOXacin 750 MG TAB PO SCH (11:55)
[2018-05-20] MEDS: ONDANSETRON INJ 2 MG/ML 2 ML VIAL IV PRN (12:02)
[2018-05-20 12:32] LABS: Appearance Urine Clear (Clear); Bacteria Urine Automated Negative (Negative); Bilirubin Urine Negative (Negative); Blood Urine 1+ (Negative); Color Urine Yellow; Epithelial Cell Urine Auto 20-30 /lpf (0-5); Glucose Urine UA Negative (Negative); Ketones Urine Negative (Negative); Leukocyte Esterase Urine Negative (Negative); Nitrite Urine Negative (Negative); Protein Urine Negative (Negative); Specific Gravity Urine 1.019 (1.000-1.030); Urobilinogen Urine Negative (Negative); pH Urine 8.5 (4.5-7.5)
--- NOTE | 2018-05-20 13:20 | Palliative Care Progress Note ---
Date of Service May 20, 2018 Assessment & Plan (1) Palliative care encounter: -This is a 67 year old female who [facility] as she was experiencing shortness of breath for which she was diagnosed post CXR with CHF exacerbation. She has additional PMH including small cell lung cancer, asthma, HLD, A-fib, CAD and Hodgkin's Lymphoma which was diagnosed and treated in the . She sees Dr. Doshi for heme/onc treatment and had her last dose of Etoposide and Cisplatin in March 2018. She was to undergo her third round of chemotherapy 05/13, but was medically unstable. Currently, chemotherapy is suspended until further notice pending her medical stability. -Met with patient in room 422 today for follow-up after palliative care family meeting on Wednesday. Patient is having a good day today. She is oriented x4, very alert and feeling like herself. She has had some confusion/hallucination on/off this week. -Dr. Doshi stopped by this morning to talk to patient about her condition and future plans. Right now, she is not well enough for chemo. Further chemo could be harmful at this point. -Patient is understanding of her prognosis at this point. She states that she is open to going home with hospice and focusing on her comfort. -Talked quite a while about her spiritual and philosophical stance on the situation. She has a strong alcides and is not afraid to . However, she states she thinks she has some good time left and would like to have a good quality of life for her remaining time. -She completed her living will/POA today with a auto porter. Her friend Marina is going to be her power of retail beauty specialist. -She remains DNR/DNI which she confirmed today. -She could possibly have Pleur-x catheter placed on Wednesday, will wait to see Dr. Steele. -Further plans to come next week based on hospitalization course. (2) Chronic diastolic CHF (congestive heart failure): (3) Small cell lung cancer: Subjective 40 minutes with >50% of time spent at bedside with patient discussing condition and GOC as well as hospice. Constitutional: + weakness; no body aches Ear, Nose, Mouth, Throat: + dry mouth; no dysphagia Respiratory: + cough; no dyspnea Cardiovascular: no chest pain and no edema Gastrointestinal: no abdominal pain, no nausea and no vomiting Neurologic: no confusion Psychiatric: no depression and no anxiety Physical Exam Vital Signs (Past 24 Hours): Last Vital Signs Temp 36.5 C 05/20/18 07:35 Pulse 95 H 05/20/18 11:37 Resp 18 05/20/18 11:37 BP 104/61 05/20/18 07:35 Pulse Ox 98 05/20/18 11:37 Constitutional: + ill appearing and + thin ENMT: external ear and nose normal, oropharynx normal Neck: normal visual inspection Respiratory: normal respiratory effort and + cough Auscultation: + diminished lung sounds Cardiovascular: RRR, no murmur, no edema Gastrointestinal (Abdomen): normal bowel sounds, soft, nontender, no hepatosplenomegaly Skin: no rashes, warm and dry Psychiatric: A+Ox3, euthymic affect Insight: good insight
[2018-05-20] MEDS: LIDOCAINE 5% 1 PATCH TD SCH ×2 (16:57)
[2018-05-20] MEDS: ENOXAPARIN INJ 30 MG/0.3 ML SYR SQ SCH (17:02)
--- NOTE | 2018-05-20 20:01 | Hospitalist Progress Note ---
Date of Service May 20, 2018 Assessment & Plan (1) Acute respiratory failure with hypoxia and hypercapnia: Combination of multiple factors including advancing stage 4 small cell lung ca, asthma/copd, decompensated CHF, pleural effusions, and suspected acute bronchitis and/or pneumonia. Diuresis led to a considerable contraction alkalosis. Cont prednisone daily. Cont levaquin total 7 days; today is day #4. s/p left-sided thoracentesis; possible malignant cells from the left-sided tap. Dr. Steele mentioned possibility of a pleurX catheter for her; possibly to be placed on Wednesday. (2) Bilateral pleural effusion: s/p thoracentesis on RIGHT with 1000cc+ yielded. Cytologies negative. Fluid most c/w transudative at that time. s/p left-sided thoracentesis yielding 800cc of fluid. Cytologies possibly +. PleurX on Wednesday (possible) by Dr. Steele on left. (3) Acute on chronic diastolic (congestive) heart failure: Attempts at diuresis this admission caused a considerable contraction alkalosis. She does not look overtly fluid overloaded today although IJ looked plump. Stop fluids. Follow w/ serial exams. (4) Primary small cell malignant neoplasm of lung, stage 4: s/p 2 rounds of chemo per the [facility]. She has not tolerated these well. Poor candidate for future chemo. She is considering hospice/palliative care. Dr. Doshi met w/ patient today- told her she will not receive further chemo due to poor functional status. Numerous conversations this admission about options for care and palliative care team is involved as well; their efforts appreciated. Home w/ hospice at d/c? (5) Severe protein-calorie malnutrition: Ongoing (6) Hypothyroidism: TSH 2.8 on 02/2018. Cont synthroid as is. (7) Atrial fibrillation: Holding coumadin as she may need pleurX catheter (8) Asthma: probable exacerbation. cont prednisone 60mg daily. cont nebs. (9) CAD (coronary artery disease): troponin negative. no ischemic symptoms. (10) Nausea & vomiting: resolved (11) DM type 2 (diabetes mellitus, type 2): adjust insulin (12) Hodgkin lymphoma: history of such now with macrocytosis, leukocytosis, etc development of new bone marrow process? may not be relevant if we elect to go in direction of palliative care (13) Tobacco use disorder: was smoking up until this admission nicoderm patch (14) Gross hematuria: resolved steve trauma in setting of coumadin? UTI? other? observe urine cx thus far neg (15) DVT prophylaxis: while coumadin is on hold will start lovenox 30mg daily POA updated at bedside observe through PleurX on Wednesday Subjective patient w/o significant complaints today met w/ her senior attorney this am to draw up living will, etc Dr. Doshi met w/ patient - told her she was not a candidate for ongoing chemo given her poor functional status staff report intermittent confusion no further gross hematuria from steve Dr. Steele considering pleurX catheter on Wednesday (left) her POA, "HE", was at bedside during the visit today Constitutional: no fever Respiratory: + cough and + sputum production Cardiovascular: no chest pain Gastrointestinal: no abdominal pain Physical Exam 2 Vital Signs (Past 24 Hours): Last Vital Signs Temp 36.1 C L 05/20/18 19:24 Pulse 93 H 05/20/18 19:49 Resp 18 05/20/18 19:49 BP 105/62 05/20/18 19:24 Pulse Ox 97 05/20/18 19:49 Constitutional: + ill appearing and + cachectic; no acute distress ENMT: external ear and nose normal, oropharynx normal Respiratory: Auscultation: + diminished lung sounds (both bases), + rales and + wheezes (occasional ) Cardiovascular: Rate/Rhythm: regular rate and regular rhythm Heart Sounds: normal S1 and normal S2 Vessels: posterior tibial pulses present and dorsalis pedis pulses present; no JVD Gastrointestinal (Abdomen): normal bowel sounds, soft, nontender, no hepatosplenomegaly Psychiatric: A+Ox3, euthymic affect Results & Data Laboratory Results Laboratory Results - last 24 hr 05/19/18 05/20/18 05/20/18 20:33 05:31 05:31 PT 14.0 H INR 1.4 H Sodium 137 Potassium 4.1 Chloride 92 L Carbon Dioxide 43 H* Anion Gap 1.0 L BUN 10 Creatinine 0.23 L Est Cr Clr Drug Dosing 188.2 Est GFR ( Amer) > 150.0 Est GFR (Non-Af Amer) 130.2 BUN/Creatinine Ratio 45.1 H Glucose 71 POC Glucose 213 H Calcium 8.2 L Urine Color Urine Appearance Urine pH Ur Specific [place] Urine Protein Urine Glucose (UA) Urine Ketones Urine Blood Urine Nitrite Urine Bilirubin Urine Urobilinogen Ur Leukocyte Esterase Urine WBC (Auto) Urine RBC (Auto) U Hyaline Cast (Auto) U Epithel Cells (Auto) Urine Bacteria (Auto) 05/20/18 05/20/18 05/20/18 08:03 12:20 16:47 PT INR Sodium Potassium Chloride Carbon Dioxide Anion Gap BUN Creatinine Est Cr Clr Drug Dosing Est GFR ( Amer) Est GFR (Non-Af Amer) BUN/Creatinine Ratio Glucose POC Glucose 85 269 H Calcium Urine Color Yellow Urine Appearance Clear Urine pH 8.5 H Ur Specific [place] 1.019 Urine Protein Negative Urine Glucose (UA) Negative Urine Ketones Negative Urine Blood 1+ H Urine Nitrite Negative Urine Bilirubin Negative Urine Urobilinogen Negative Ur Leukocyte Esterase Negative Urine WBC (Auto) 5-10 H Urine RBC (Auto) 10-30 H U Hyaline Cast (Auto) 1-5 U Epithel Cells (Auto) 20-30 H Urine Bacteria (Auto) Negative _ (1) Hodgkin lymphoma Hodgkin lymphoma type: unspecified type Lymphoma site: unspecified region Qualified Code(s): C81.90 - Hodgkin lymphoma, unspecified, unspecified site (2) DM type 2 (diabetes mellitus, type 2) Chronic kidney disease stage: Diabetes mellitus complication detail: Diabetes mellitus complication status: without complication Diabetes mellitus assisted insulin use: without rehab care assistant use Diabetes mellitus macular edema: Diabetic retinopathy severity: Laterality: Proliferative retinopathy type : Qualified Code(s): E11.9 - Type 2 diabetes mellitus without complications (3) CAD (coronary artery disease) Associated angina: without angina Coronary Disease-Associated Artery/Lesion type: [place] artery [place] vs. transplanted heart: [place] heart Qualified Code (s): I25.10 - Atherosclerotic heart disease of [place] coronary artery without angina pectoris (4) Atrial fibrillation Atrial fibrillation type: chronic Qualified Code(s): I48.2 - Chronic atrial fibrillation (5) Hypothyroidism Hypothyroidism type: acquired Qualified Code(s): E03.9 - Hypothyroidism, unspecified (6) Nausea & vomiting Vomiting Intractability: unspecified Vomiting type: unspecified Qualified Code(s): R11.2 - Nausea with vomiting, unspecified (7) Asthma Asthma complication type: uncomplicated Asthma persistence: persistent Asthma severity: moderate Qualified Code(s): J45.40 - Moderate persistent asthma, uncomplicated
[2018-05-20] MEDS: ASPIRIN 81 MG ECTAB PO SCH (20:47)
[2018-05-20] MEDS: BACLOFEN 10 MG TAB PO PRN (20:56)
[2018-05-20] MEDS: INSULIN ASPART 100 UNITS/ML 3 ML PEN SC SCH (20:57)
--- NOTE | 2018-05-20 23:31 | Progress Note ---
Date of Service May 20, 2018 Received page from the overnight nurse asking if the patient should be on maintenance fluids. Apparently they were not running at the time of starting her shift. From review of the progress notes, the patient has some volume depletion from a contraction alkalosis from prior diuresis. She also has bilateral pleural effusions that were recently drained as well as decompensated CHF. Progress note mentions that she received a judicious 500 cc fluid bolus around the evening of May 19 and would be reassessed in the morning. Plan: For now will hold her maintenance IV fluids. She does have orders for regular diet (although it seems she has not been taking in much p.o.) in case she is thirsty. Primary team can reassess if she needs further fluids in a.m. ZAC, PGY2 Overnight call Physical Exam 2 Vital Signs (Past 24 Hours): Last Vital Signs Temp 36.5 C 05/20/18 23:25 Pulse 94 H 05/20/18 23:25 Resp 24 05/20/18 23:25 BP 108/66 05/20/18 23:25 Pulse Ox 99 05/20/18 23:25
[2018-05-21] MEDS: ONDANSETRON INJ 2 MG/ML 2 ML VIAL IV PRN (05:46)
[2018-05-21] MEDS: LEVOTHYROXINE SODIUM 112 MCG TABLET PO SCH (05:46)
[2018-05-21 06:12] LABS: Hematocrit (blood only) 29.4 % (37-47); Hemoglobin 9.3 g/dL (12.0-16.0); Mean Corpuscular Hgb Conc 31.6 g/dL (32-36); Mean Corpuscular Volume 106.5 fL (80-100); Mean Platelet Volume 10.1 fL (7.4-10.4); Platelet Count 398 K/uL (130-400); RDW Coefficient of Variation 16.3 % (11.5-14.5); RDW Standard Deviation 63.3 fL (36.4-46.3); Red Blood Count 2.76 M/uL (4.2-5.4); White Blood Count 13.09 K/uL (4.8-10.8)
[2018-05-21 07:03] LABS: BUN Creatinine Ratio 44.6 (10-20); Calcium 8.3 mg/dl (8.5-10.1); Creatinine Clr Calc Pharmacy 176.5 ml/min; Est GFR (African American) 146.8; Est GFR (Non-African American) 126.7; Potassium 4.1 mmol/L (3.5-5.1)
[2018-05-21] MEDS: PANTOprazole 40 MG TAB PO SCH (07:09)
[2018-05-21] MEDS: DOCUSATE SODIUM 100 MG CAP PO SCH ×2 (07:09→20:58)
[2018-05-21] MEDS: METOPROLOL SUCC 50MG EXT REL TAB PO SCH (07:09)
[2018-05-21] MEDS: BACLOFEN 10 MG TAB PO PRN (07:09)
[2018-05-21] MEDS: FOLIC ACID 1 MG TAB PO SCH (07:09)
[2018-05-21] MEDS: predniSONE 20 MG TAB PO SCH (07:09)
[2018-05-21] MEDS: FLUTICASONE/SALMETEROL 250/50 (ADVAIR) 14 PUFF/1 INHALER INH SCH ×2 (07:10→20:58)
[2018-05-21] MEDS: LACTOBACILLUS ACIDOPHILUS (FLORANEX) TAB PO SCH ×3 (07:10→17:48)
[2018-05-21] MEDS: CLOTRIMAZOLE 10 MG TROCHE BUCCAL SCH ×5 (07:10→21:00)
[2018-05-21] MEDS: INSULIN ASPART 100 UNITS/ML 3 ML PEN SC SCH ×4 (07:10→20:59)
[2018-05-21] MEDS: LORATADINE 10 MG TAB PO SCH (07:11)
[2018-05-21] MEDS: FLUTICASONE PROPIONATE NA SPR 16 GM BTL SCH (07:11)
[2018-05-21] MEDS: POLYETHYLENE (MIRALAX) 17 GM PACK PO SCH (07:12)
[2018-05-21] MEDS: MAGNESIUM OXIDE 400 MG TAB PO SCH ×2 (07:12→20:59)
[2018-05-21] MEDS: ALBUT/IPRATROP 3MG/0.5MG NEB 3 ML VIAL NEB SCH ×2 (07:24→11:37)
--- NOTE | 2018-05-21 07:57 | Surgery Progress Note ---
Date of Service May 21, 2018 Assessment & Plan (1) Bilateral pleural effusion: -pt. has hx. of lung cancer -right thoracentesis performed on 05/13/18 -cultures are (-) for growth to date -cytology was (-) for cancer -left thoracentesis performed on 05/19/18: -cytology showed atypical cells (pathologist could not exclude malignancy) -will repeat CXR in am -if fluid has re-accumulated will consider additional drainage procedures Subjective Pt. notes her breathing seems better today. No cough, fevers, shakes, chills. Physical Exam 2 Vital Signs (Past 24 Hours): Last Vital Signs Temp 36.5 C 05/21/18 07:18 Pulse 95 H 05/21/18 07:25 Resp 18 05/21/18 07:25 BP 101/59 L 05/21/18 07:18 Pulse Ox 96 05/21/18 07:25 Physical Exam: Pt. is frail appearing Respiratory: no respiratory distress and no labored breathing BS are decrease at bases, R>L; no use of accessory muscles
[2018-05-21] MEDS: INSULIN GLARGINE SOLOSTAR 100 UNITS/ML 3 ML PEN SC SCH ×2 (08:08→20:59)
[2018-05-21] MEDS: ENOXAPARIN INJ 30 MG/0.3 ML SYR SQ SCH (10:05)
[2018-05-21] MEDS: levoFLOXacin 750 MG TAB PO SCH (12:08)
[2018-05-21] MEDS ORDERED: ALBUT/IPRATROP 3MG/0.5MG NEB 3 ML VIAL NEB PRN (13:23)
[2018-05-21] MEDS ORDERED: SOD PHOSPHATE/SOD BIPHOSPHATE ENEMA 132 ML BTL PR STA (15:37)
--- NOTE | 2018-05-21 16:00 | XRay Report ---
XR foot RT min 3V routine HISTORY: 67 years-old Female metatarsal pain, eval for fracture, CPPD, etc acute foot pain with poss ible fracture COMPARISON: ] Ankle radiographs 11/19/2015 TECHNIQUE: 3 views of the right foot FINDINGS: Mildly demineralized appearance of the bones. Mild degenerative changes about the metatarsophalangeal and interphalangeal joints. Spurring of the calcaneus. Mild degenerative changes of the tibiotalar j oint. No acute fracture, dislocation, opaque foreign body or evidence of erosive arthropathy. IMPRESSION: 1. Mildly demineralized appearance of the bones without acute fracture or dislocation. 2. Degenerative changes as above without evidence of erosive arthropathy. The above report was generated using voice recognition software. It may contain grammatical, syntax o r spelling errors. Electronically signed by: Bakari Sanchez M.D. 05/21/2018 3:59 PM
--- NOTE | 2018-05-21 16:03 | XRay Report ---
KUB HISTORY: Acute generalized abdominal pain with constipation severe constipation vs ileus; eval bowel pattern COMPARISON: PET CT 04/06/2018. FINDINGS: Bilateral pleural effusions with cardiomegaly. Prior median sternotomy. [id number] catheter distal tip noted in the region of the cavoatrial junction superiorly. Bibasilar opacities. Multiple surgical clips noted about the abdomen and pelvis. Moderate formed stool is noted throughout the entirety of the colon. Bowel gas pattern is nonobstructive. Indeterminate ovoid 5 mm calcificati on about the left midabdomen. Calcifications of the pelvis suggest probable phleboliths radiodensitie s project over the superior pole right kidney measuring up to 6 mm. Levoscoliosis of the lumbar spine with multilevel degenerative changes. IMPRESSION: 1. Nonobstructive bowel gas pattern. 2. Moderate constipation. 3. Cardiomegaly. 4. Bibasilar consolidation with bilateral pleural effusions. Electronically signed by: Bakari Sanchez M.D. 05/21/2018 4:02 PM
[2018-05-21] MEDS ORDERED: BISACODYL 10 MG SUPP PR STA (16:14)
[2018-05-21] MEDS: DICLOFENAC SOD 1% GEL 100 GM TUBE EXT SCH ×3 (17:40→21:00)
[2018-05-21] MEDS: IPRATROPIUM BROMIDE/ALBUTEROL respimat INH INH SCH ×2 (17:42→20:58)
[2018-05-21] MEDS: LIDOCAINE 5% 1 PATCH TD SCH ×2 (17:43)
--- NOTE | 2018-05-21 20:48 | Hospitalist Progress Note ---
Date of Service May 21, 2018 Assessment & Plan (1) Acute respiratory failure with hypoxia and hypercapnia: Combination of multiple factors including advancing stage 4 small cell lung ca, asthma/copd, decompensated CHF, pleural effusions, and suspected acute bronchitis and/or pneumonia. Diuresis led to a considerable contraction alkalosis and no significant change in clinical status. Cont prednisone daily. Wean prednisone to 50mg in am. Cont levaquin total 7 days; today is day #5. s/p left-sided thoracentesis; possible malignant cells from the left-sided tap. Dr. Steele mentioned possibility of a pleurX catheter for her; possibly to be placed on Wednesday. Holding coumadin pending that procedure. (2) Bilateral pleural effusion: s/p thoracentesis on RIGHT with 1000cc+ yielded. Cytologies negative. Fluid most c/w transudative etiology at that time. s/p left-sided thoracentesis yielding 800cc of fluid. Cytologies possibly +. PleurX on Wednesday (possible) by Dr. Steele on left. Holding coumadin. (3) Acute on chronic diastolic (congestive) heart failure: Attempts at diuresis this admission caused a considerable contraction alkalosis. Appears euvolemic today. Follow w/ serial exams. Home lasix dose on hold. (4) Primary small cell malignant neoplasm of lung, stage 4: s/p 2 rounds of chemo per the [facility]. She has not tolerated these well. Poor candidate for future chemo. She is considering hospice/palliative care. Dr. Doshi met w/ patient on Wednesday - told her she will not receive further chemo due to poor functional status. Numerous conversations this admission about options for care and palliative care team is involved as well; their efforts appreciated. Home w/ hospice at d/c? (5) Severe protein-calorie malnutrition: Ongoing (6) Hypothyroidism: TSH 2.8 on 02/2018. Cont synthroid as is. (7) Atrial fibrillation: Holding coumadin as she may need pleurX catheter (8) Asthma: probable exacerbation. cont prednisone - wean to 50mg daily tomorrow. cont nebs. (9) CAD (coronary artery disease): troponin negative. no ischemic symptoms. (10) Nausea & vomiting: resolved (11) DM type 2 (diabetes mellitus, type 2): adjust novolog due to steroid use (12) Hodgkin lymphoma: history of such now with macrocytosis, leukocytosis, etc development of new bone marrow process? may not be relevant if we elect to go in direction of palliative care (13) Tobacco use disorder: was smoking up until this admission nicoderm patch (14) Gross hematuria: resolved steve trauma in setting of coumadin? UTI? other? observe urine cx thus far neg (15) Constipation: severe on KUB x-ray today fleets x 1 or dulcolax x 1 to help relieve downstream impaction aggressive daily bowel regimen (16) Right foot pain: etiology? does not look like gout or pseudogout could have subacute fracture check x-rays of foot voltaren gel qid (17) DVT prophylaxis: while coumadin is on hold will cont lovenox 30mg daily POA updated at bedside observe through PleurX on Wednesday Subjective pt c/o pain and swelling over right foot vague about how long she has had such but stated "maybe a month" hurts to walk on it no pain or swelling on left foot denies any h/o injury still constipated hasn't had a normal BM in "3 weeks" cough/wheeze/breathing improved Marina, her POA, was at bedside during the visit Constitutional: + weakness; no fever and no chills Ear, Nose, Mouth, Throat: no sore throat and no dysphagia Respiratory: + cough and + sputum production; no hemoptysis and no wheezing Cardiovascular: no chest pain Gastrointestinal: no abdominal pain, no nausea and no vomiting Physical Exam 2 Vital Signs (Past 24 Hours): Last Vital Signs Temp 36.5 C 05/21/18 19:17 Pulse 93 H 05/21/18 19:17 Resp 16 05/21/18 19:17 BP 103/64 05/21/18 19:17 Pulse Ox 94 05/21/18 15:55 Constitutional: + ill appearing and + cachectic; no acute distress ENMT: external ear and nose normal, oropharynx normal Respiratory: Auscultation: + diminished lung sounds (both bases), + rales and + wheezes (occasional ) Cardiovascular: Rate/Rhythm: regular rate and regular rhythm Heart Sounds: normal S1 and normal S2 Vessels: posterior tibial pulses present and dorsalis pedis pulses present; no JVD Chest (Breasts): Additional Comments: port chest clean Gastrointestinal (Abdomen): normal bowel sounds, soft, nontender, no hepatosplenomegaly Inspection/Auscultation: abdomen not distended Musculoskeletal: right foot - minimal amount of swelling over dorsum of foot; tender over several metatarsals especially distally; full passive ROM of right ankle; no pain over either malleoli; no pain over any toes to palpation; no plantar aspect pain; negative Kaykay's sign; no edema or swelling in left leg Psychiatric: A+Ox3, euthymic affect Results & Data Laboratory Results Laboratory Results - last 24 hr 05/21/18 05/21/18 05/21/18 05:16 05:16 07:43 WBC 13.09 H RBC 2.76 L Hgb 9.3 L Hct 29.4 L MCV 106.5 H MCH 33.7 MCHC 31.6 L RDW Std Deviation 63.3 H RDW Coeff of [place] 16.3 H Plt Count 398 MPV 10.1 Sodium 138 Potassium 4.1 Chloride 95 L Carbon Dioxide 43 H* Anion Gap -1.0 L BUN 11 Creatinine 0.25 L Est Cr Clr Drug Dosing 176.5 Est GFR ( Amer) 146.8 Est GFR (Non-Af Amer) 126.7 BUN/Creatinine Ratio 44.6 H Glucose 59 L POC Glucose 114 H Calcium 8.3 L 05/21/18 05/21/18 05/21/18 11:42 17:39 20:35 WBC RBC Hgb Hct MCV MCH MCHC RDW Std Deviation RDW Coeff of [place] Plt Count MPV Sodium Potassium Chloride Carbon Dioxide Anion Gap BUN Creatinine Est Cr Clr Drug Dosing Est GFR ( Amer) Est GFR (Non-Af Amer) BUN/Creatinine Ratio Glucose POC Glucose 186 H 237 H 292 H Calcium _ (1) Hodgkin lymphoma Hodgkin lymphoma type: unspecified type Lymphoma site: unspecified region Qualified Code(s): C81.90 - Hodgkin lymphoma, unspecified, unspecified site (2) DM type 2 (diabetes mellitus, type 2) Chronic kidney disease stage: Diabetes mellitus complication detail: Diabetes mellitus complication status: without complication Diabetes mellitus assisted insulin use: without termite treater use Diabetes mellitus macular edema: Diabetic retinopathy severity: Laterality: Proliferative retinopathy type : Qualified Code(s): E11.9 - Type 2 diabetes mellitus without complications (3) CAD (coronary artery disease) Associated angina: without angina Coronary Disease-Associated Artery/Lesion type: [place] artery [place] vs. transplanted heart: [place] heart Qualified Code (s): I25.10 - Atherosclerotic heart disease of [place] coronary artery without angina pectoris (4) Atrial fibrillation Atrial fibrillation type: chronic Qualified Code(s): I48.2 - Chronic atrial fibrillation (5) Hypothyroidism Hypothyroidism type: acquired Qualified Code(s): E03.9 - Hypothyroidism, unspecified (6) Nausea & vomiting Vomiting Intractability: unspecified Vomiting type: unspecified Qualified Code(s): R11.2 - Nausea with vomiting, unspecified (7) Asthma Asthma complication type: uncomplicated Asthma persistence: persistent Asthma severity: moderate Qualified Code(s): J45.40 - Moderate persistent asthma, uncomplicated (8) Constipation Constipation type: other constipation type Qualified Code(s): K59.09 - Other constipation
[2018-05-21] MEDS: BACLOFEN 10 MG TAB PO SCH (20:58)
[2018-05-21] MEDS: ASPIRIN 81 MG ECTAB PO SCH (20:58)
[2018-05-22] MEDS: HEPARIN 100 UNIT/ML 5ML FLUSH IV PRN ×2 (05:52→18:29)
[2018-05-22] MEDS: LEVOTHYROXINE SODIUM 112 MCG TABLET PO SCH (06:04)
[2018-05-22 07:13] LABS: BUN Creatinine Ratio 47.7 (10-20); Blood Urea Nitrogen 11 mg/dl (7-18); Calcium 8.6 mg/dl (8.5-10.1); Carbon Dioxide 41 mmol/L (21-32); Chloride 96 mmol/L (98-107); Creatinine Clr Calc Pharmacy 196.9 ml/min; Est GFR (African American) > 150.0; Est GFR (Non-African American) 132.1; Glucose 59 mg/dl (70-99); Potassium 3.9 mmol/L (3.5-5.1); Sodium 138 mmol/L (136-145)
--- NOTE | 2018-05-22 07:13 | XRay Report ---
XR chest 1V portable CLINICAL HISTORY: 67 years-old Female presenting with effusion . TECHNIQUE: Portable upright AP view of the chest was obtained. COMPARISON: 05/19/2018. FINDINGS: Left subclavian Mediport terminates at the superior cavoatrial junction. Median sternotomy wires with bypass graft rings. Epicardial pacing wires suggested. Extensive surgical clips project over the epi gastrium. Atherosclerosis of aortic arch. Cardiac silhouette moderately enlarged. Pulmonary vascular prominence stable to slightly increased from prior. Significant interval increase in bilateral pleura l effusions, left greater than right. Decreased aeration of the left lung base. Persistent right basi lar opacity. No pneumothorax. Degenerative changes of the thoracic spine. Upper abdomen normal. IMPRESSION: 1. Significant interval increase in pleural effusions, left greater than right, and with associated increased volume overload. 2. Cardiomegaly. 3. Persistent right basilar infiltrate, possibly extensive atelectasis though underlying infection c annot be excluded. This is not significantly changed from prior. Electronically signed by: Nathan Pérez M.D. 05/22/2018 7:11 AM
[2018-05-22] MEDS: INSULIN ASPART 100 UNITS/ML 3 ML PEN SC SCH ×4 (07:16→20:28)
[2018-05-22] MEDS: INSULIN GLARGINE SOLOSTAR 100 UNITS/ML 3 ML PEN SC SCH ×2 (07:17→20:28)
[2018-05-22] MEDS ORDERED: Nursing to Pharmacy Communication ONE (07:22)
[2018-05-22] MEDS: FOLIC ACID 1 MG TAB PO SCH (07:24)
[2018-05-22] MEDS: LORATADINE 10 MG TAB PO SCH (07:24)
[2018-05-22] MEDS: predniSONE 50 MG TAB PO SCH (07:24)
[2018-05-22] MEDS: METOPROLOL SUCC 50MG EXT REL TAB PO SCH (07:24)
[2018-05-22] MEDS: FLUTICASONE PROPIONATE NA SPR 16 GM BTL SCH (07:25)
[2018-05-22] MEDS: BACLOFEN 10 MG TAB PO SCH ×2 (07:25→20:25)
[2018-05-22] MEDS: FLUTICASONE/SALMETEROL 250/50 (ADVAIR) 14 PUFF/1 INHALER INH SCH ×2 (07:26→20:27)
[2018-05-22] MEDS: LACTOBACILLUS ACIDOPHILUS (FLORANEX) TAB PO SCH ×3 (07:26→18:22)
[2018-05-22] MEDS: IPRATROPIUM BROMIDE/ALBUTEROL respimat INH INH SCH ×4 (07:26→20:27)
[2018-05-22] MEDS: MAGNESIUM OXIDE 400 MG TAB PO SCH ×2 (07:27→20:24)
[2018-05-22] MEDS: CLOTRIMAZOLE 10 MG TROCHE BUCCAL SCH ×5 (07:27→20:24)
[2018-05-22] MEDS: DOCUSATE SODIUM 100 MG CAP PO SCH ×2 (07:27→20:26)
[2018-05-22] MEDS: PANTOprazole 40 MG TAB PO SCH (07:27)
[2018-05-22] MEDS: DICLOFENAC SOD 1% GEL 100 GM TUBE EXT SCH ×4 (07:29→20:31)
[2018-05-22] MEDS: POLYETHYLENE (MIRALAX) 17 GM PACK PO SCH (07:29)
[2018-05-22] MEDS: MAGNESIUM HYDROXIDE SUSP 30 ML UDC PO PRN (07:39)
--- NOTE | 2018-05-22 07:40 | Surgery Progress Note ---
Date of Service May 22, 2018 Assessment & Plan (1) Bilateral pleural effusion: -CXR today shows fluid has begun to recur -discussed with pt. that she may benefit from placement of a pleurex catheter -she is currently not taking coumadin, so will likely place pleurex tomorrow Subjective Pt. notes her breathing is not labored. Physical Exam 2 Vital Signs (Past 24 Hours): Last Vital Signs Temp 36.6 C 05/22/18 06:57 Pulse 92 H 05/22/18 06:57 Resp 16 05/22/18 06:57 BP 93/55 L 05/22/18 06:57 Pulse Ox 94 05/22/18 06:57 Respiratory: no respiratory distress and no labored breathing BS are decreased at bases bilaterally
[2018-05-22] MEDS ORDERED: LIDOCAINE HCL 1% 20 ML VIAL INFIL ONE (07:45)
[2018-05-22] MEDS: ENOXAPARIN INJ 30 MG/0.3 ML SYR SQ SCH (12:12)
[2018-05-22] MEDS: levoFLOXacin 750 MG TAB PO SCH (12:12)
[2018-05-22] MEDS: FUROSEMIDE 20 MG TAB PO SCH (18:21)
[2018-05-22] MEDS: ONDANSETRON INJ 2 MG/ML 2 ML VIAL IV PRN (18:29)
[2018-05-22] MEDS: ASPIRIN 81 MG ECTAB PO SCH (20:26)
[2018-05-22] MEDS: LIDOCAINE 5% 1 PATCH TD SCH ×2 (20:29→20:30)
--- NOTE | 2018-05-22 22:43 | Hospitalist Progress Note ---
Date of Service May 22, 2018 Assessment & Plan (1) Acute respiratory failure with hypoxia and hypercapnia: Combination of multiple factors including advancing stage 4 small cell lung ca, asthma/copd, decompensated CHF, pleural effusions, and suspected acute bronchitis (and/or pneumonia). Diuresis led to a considerable contraction alkalosis and no significant change in clinical status early on in her course. Cont prednisone daily for asthma/COPD exacerbation. Currently at 50mg/day. Wean every 2 days or so. Cont levaquin total 7 days; today is day #6. s/p left-sided thoracentesis; possible malignant cells from the left-sided tap. Dr. Steele may place left-sided pleurX on 05/23/18. Holding coumadin for possible pleurX insertion. (2) Bilateral pleural effusion: s/p thoracentesis on RIGHT with 1000cc+ yielded. Cytologies negative. Fluid most c/w transudative etiology at that time. s/p left-sided thoracentesis yielding 800cc of fluid. Cytologies possibly +. PleurX on Wednesday (possible) by Dr. Steele on left. Holding coumadin. (3) Acute on chronic diastolic (congestive) heart failure: Attempts at diuresis this admission caused a considerable contraction alkalosis. Lasix was held for some time. Will resume 20mg of lasix daily to maintain euvolemia. BMP am. (4) Primary small cell malignant neoplasm of lung, stage 4: s/p 2 rounds of chemo under the care of Dr. Doshi at the [facility]. She did not tolerate these well. Poor candidate for future chemo. She is considering hospice/palliative care. Dr. Doshi met w/ patient on Wednesday, 05/20 - told her she will not receive further chemo due to poor functional status. Numerous conversations this admission about options for care and palliative care team is involved as well; their efforts appreciated. Home w/ hospice at d/c? (5) Severe protein-calorie malnutrition: Ongoing appetite markedly improved with prednisone consider low-dose prednisone at d/c on chronic basis for appetite (6) Hypothyroidism: TSH 2.8 on 02/2018. Cont synthroid as is. (7) Atrial fibrillation: Holding coumadin as she may need pleurX catheter clinically in NSR on exam today (8) Asthma: probable exacerbation. IMPROVED. cont prednisone 50mg; wean every 2-3 days. cont nebs. (9) CAD (coronary artery disease): troponin negative. no ischemic symptoms. (10) Nausea & vomiting: at time of admission. resolved; has not recurred. (11) DM type 2 (diabetes mellitus, type 2): insulins have been adjusted in the setting of prednisone use continue to monitor (12) Hodgkin lymphoma: history of such now with macrocytosis, leukocytosis, etc development of new bone marrow process? likely not relevant if we elect to go in direction of palliative care (13) Tobacco use disorder: was smoking up until this admission nicoderm patch (14) Gross hematuria: resolved suspect due to steve trauma steve placed this admission due to urinary retention; consider spontaneous voiding trial tomorrow (15) Constipation: finally resolved with milk of mag today cont miralax add senna for bowel maintenance (16) Right foot pain: etiology? does not look like gout or pseudogout x rays neg for fracture overall improved w/ voltaren gel and steroids follow (17) DVT prophylaxis: lovenox 30mg daily since coumadin is on hold patient told me today she wants to go home at discharge disposition is tricky as apparently has dementia and is debilitated, and her son that lives with them just got out of pen[facility] will ask social work to continue assisting w/ dispo Subjective upon entering the room the patient stated "I feel better today" right foot pain and swelling improved cough/dyspnea improved ambulating eating more was at bedside today for a visit no new complaints Respiratory: + cough; no sputum production Cardiovascular: no chest pain Gastrointestinal: no abdominal pain and no constipation had very large bowel movement today with use of milk of mag Physical Exam 2 Vital Signs (Past 24 Hours): Last Vital Signs Temp 36.7 C 05/22/18 18:18 Pulse 101 H 05/22/18 18:18 Resp 16 05/22/18 18:18 BP 107/61 05/22/18 18:18 Pulse Ox 97 05/22/18 18:18 Constitutional: + ill appearing and + cachectic; no acute distress ENMT: external ear and nose normal, oropharynx normal Respiratory: Auscultation: + diminished lung sounds (both bases) and + rales Cardiovascular: Rate/Rhythm: regular rate and regular rhythm Heart Sounds: normal S1 and normal S2 Vessels: posterior tibial pulses present and dorsalis pedis pulses present; no JVD Chest (Breasts): Additional Comments: port - clean, dry Gastrointestinal (Abdomen): normal bowel sounds, soft, nontender, no hepatosplenomegaly Percussion/Palpation: abdomen not rigid Musculoskeletal: right foot - scant swelling today (improved); no tenderness to palpation over any of the metatarsals today Psychiatric: A+Ox3, euthymic affect Results & Data Laboratory Results Laboratory Results - last 24 hr 05/22/18 05/22/18 05/22/18 05:51 07:42 11:53 Sodium 138 Potassium 3.9 Chloride 96 L Carbon Dioxide 41 H* Anion Gap 1.0 L BUN 11 Creatinine 0.22 L Est Cr Clr Drug Dosing 196.9 Est GFR ( Amer) > 150.0 Est GFR (Non-Af Amer) 132.1 BUN/Creatinine Ratio 47.7 H Glucose 59 L POC Glucose 110 H 153 H Calcium 8.6 05/22/18 05/22/18 16:26 19:45 Sodium Potassium Chloride Carbon Dioxide Anion Gap BUN Creatinine Est Cr Clr Drug Dosing Est GFR ( Amer) Est GFR (Non-Af Amer) BUN/Creatinine Ratio Glucose POC Glucose 186 H 178 H Calcium _ (1) Hypothyroidism Hypothyroidism type: acquired Qualified Code(s): E03.9 - Hypothyroidism, unspecified (2) Atrial fibrillation Atrial fibrillation type: chronic Qualified Code(s): I48.2 - Chronic atrial fibrillation (3) Asthma Asthma severity: moderate Asthma persistence: persistent Asthma complication type: uncomplicated Qualified Code(s): J45.40 - Moderate persistent asthma, uncomplicated (4) CAD (coronary artery disease) Coronary Disease-Associated Artery/Lesion type: [place] artery [place] vs. transplanted heart: [place] heart Associated angina: without angina Qualified Code(s): I25.10 - Atherosclerotic heart disease of [place] coronary artery without angina pectoris (5) Nausea & vomiting Vomiting type: unspecified Vomiting Intractability: unspecified Qualified Code(s): R11.2 - Nausea with vomiting, unspecified (6) DM type 2 (diabetes mellitus, type 2) Diabetes mellitus oysterman insulin use: without oysterman use Diabetes mellitus complication status: without complication Diabetes mellitus complication detail: Diabetic retinopathy severity: Proliferative retinopathy type: Diabetes mellitus macular edema: Laterality: Chronic kidney disease stage: Qualified Code(s): E11.9 - Type 2 diabetes mellitus without complications (7) Hodgkin lymphoma Hodgkin lymphoma type: unspecified type Lymphoma site: unspecified region Qualified Code(s): C81.90 - Hodgkin lymphoma, unspecified, unspecified site (8) Constipation Constipation type: other constipation type Qualified Code(s): K59.09 - Other constipation
[2018-05-23] MEDS: HEPARIN 100 UNIT/ML 5ML FLUSH IV PRN (05:59)
[2018-05-23] MEDS: LEVOTHYROXINE SODIUM 112 MCG TABLET PO SCH (06:00)
[2018-05-23 06:39] LABS: Hematocrit (blood only) 28.3 % (37-47); Hemoglobin 8.9 g/dL (12.0-16.0); Mean Corpuscular Hgb Conc 31.4 g/dL (32-36); Mean Corpuscular Volume 107.2 fL (80-100); Platelet Count 450 K/uL (130-400); RDW Coefficient of Variation 16.6 % (11.5-14.5); RDW Standard Deviation 64.2 fL (36.4-46.3); Red Blood Count 2.64 M/uL (4.2-5.4); White Blood Count 12.52 K/uL (4.8-10.8)
[2018-05-23 06:53] LABS: INR 1.2 (0.9-1.1); Prothrombin Time 11.7 Seconds (9.0-12.0)
[2018-05-23 07:15] LABS: BUN Creatinine Ratio 54.8 (10-20); Blood Urea Nitrogen 12 mg/dl (7-18); Calcium 8.1 mg/dl (8.5-10.1); Carbon Dioxide 40 mmol/L (21-32); Chloride 97 mmol/L (98-107); Creatinine Clr Calc Pharmacy 196.9 ml/min; Est GFR (African American) > 150.0; Est GFR (Non-African American) 132.1; Glucose 81 mg/dl (70-99); Magnesium 1.7 mg/dl (1.8-2.4); Potassium 3.9 mmol/L (3.5-5.1); Sodium 139 mmol/L (136-145)
--- NOTE | 2018-05-23 08:23 | Progress Note ---
DATE: 05/23/2018 Litzy Preston is a 67-year-old with history of lymphoma, had a longstanding right pleural effusion with a PleurX catheter in the past. She presented back with mediastinal adenopathy, is found to have small-cell lung carcinoma. She presented with large bilateral pleural effusions in the midst of her chemotherapy. We tapped her right side about 10 days ago for a large amount of fluid and she felt better, but the fluid has started re-accumulating. She also had more fluid on the left, so I did a tap last week and she felt better, but the fluid reaccumulated fairly quickly. There was a question about malignant cells on the left. I had a long discussion with her today, reviewed all of her films and I have elected to proceed with insertion of PleurX catheter on the left side initially. She may need one on both sides. We talked about this in detail. We discussed of the procedure and she was agreeable to a PleurX. We are going to insert one this morning.
--- NOTE | 2018-05-23 08:32 | Operative Report ---
DATE OF OPERATION: 05/23/2018 PREOPERATIVE DIAGNOSIS: Bilateral pleural effusions. POSTOPERATIVE DIAGNOSIS: Bilateral pleural effusions. PROCEDURE: Insertion of left PleurX catheter. SURGEON: Walt Steele MD CONTROL DIRECTOR: TATUM West. ANESTHESIA: Local. DESCRIPTION OF PROCEDURE: The patient in a right lateral decubitus position. Left chest prepped and draped in usual sterile fashion. Under ultrasound guidance, a good nice window was seen, which was just posterior to the mid axillary line at about sixth interspace. The patient was prepped and draped in usual sterile fashion. Appropriate timeout was called. A skin wheal was raised over the area we had marked with ultrasound. A large bore needle was used to anesthetize the subcutaneous tissues with1% Xylocaine. We got free flowing fluid back. A soft J-tipped guidewire was inserted through the needle and the needle removed. About 10 cm anterior and inferior to this, another skin wheal was raised 25-gauge needle, 1% Xylocaine and 2 more 1 cm incisions were made, each in these skin wheals. A long needle was used with 1% Xylocaine without epinephrine to anesthetize subcutaneous tissues between these 2 and then a tunnel was attached to the PleurX catheter directly into the posterior incision, the tunneler removed. Introducer sheath and inner cannula was slid over the guidewire into the posterior incision and the inner cannula and guidewire removed and PleurX catheter placed through the peel-away sheath, which was removed. Two separate 3-0 silk suture used to close the posterior incision. A 2-0 silk suture anteriorly was used to anchor the catheter to the patient's skin. Serous rust-colored fluid of 750 mL was drained. She had some reexpansion pain, so we stopped. We had got into really no bleeding. She tolerated it well. The catheter was capped sterilely and antimicrobial dressings were placed on the 2 incisions. Chest x-ray is pending at this time. We are going to send this down for cytology. There was a question about malignancy in this fluid. I attest to the content of the Intraoperative Record and any orders documented therein. Any exception s are noted below.
--- NOTE | 2018-05-23 08:34 | XRay Report ---
XR chest 1V portable CLINICAL HISTORY: pleurx dyspnea COMPARISON STUDY: 05/22/2018 FINDINGS: Placement of a pars catheter left lung base. Interval decrease in volume of left effusion. Central catheter remains in superior vena cava. Small right pleural effusion is unchanged. No evidenc e for pneumothorax. IMPRESSION: Placement of a pleural catheter left lung base with a significant decrease in volume of left effusion. No pneumothorax. The above report was generated using voice recognition software. It may contain grammatical, syntax or spelling errors. Electronically signed by: Zen Abel M.D. 05/23/2018 8:32 AM
[2018-05-23] MEDS: LACTOBACILLUS ACIDOPHILUS (FLORANEX) TAB PO SCH ×3 (09:47→18:19)
[2018-05-23] MEDS: SENNA 8.6 MG TAB PO SCH ×2 (09:48→11:53)
[2018-05-23] MEDS: MAGNESIUM OXIDE 400 MG TAB PO SCH ×2 (09:48→21:23)
[2018-05-23] MEDS: FUROSEMIDE 20 MG TAB PO SCH (09:48)
[2018-05-23] MEDS: CLOTRIMAZOLE 10 MG TROCHE BUCCAL SCH ×5 (09:49→23:33)
[2018-05-23] MEDS: predniSONE 50 MG TAB PO SCH (09:49)
[2018-05-23] MEDS: FOLIC ACID 1 MG TAB PO SCH (09:49)
[2018-05-23] MEDS: ENOXAPARIN INJ 30 MG/0.3 ML SYR SQ SCH (09:50)
[2018-05-23] MEDS: BACLOFEN 10 MG TAB PO SCH ×2 (09:50→21:22)
[2018-05-23] MEDS: DOCUSATE SODIUM 100 MG CAP PO SCH ×2 (09:50→21:22)
[2018-05-23] MEDS: POLYETHYLENE (MIRALAX) 17 GM PACK PO SCH (09:51)
[2018-05-23] MEDS: FLUTICASONE PROPIONATE NA SPR 16 GM BTL SCH (09:52)
[2018-05-23] MEDS: FLUTICASONE/SALMETEROL 250/50 (ADVAIR) 14 PUFF/1 INHALER INH SCH ×2 (09:52→21:24)
[2018-05-23] MEDS: METOPROLOL SUCC 50MG EXT REL TAB PO SCH (09:53)
[2018-05-23] MEDS: PANTOprazole 40 MG TAB PO SCH (09:54)
[2018-05-23] MEDS: LORATADINE 10 MG TAB PO SCH (09:54)
[2018-05-23] MEDS: INSULIN GLARGINE SOLOSTAR 100 UNITS/ML 3 ML PEN SC SCH ×2 (09:55→21:29)
[2018-05-23] MEDS: IPRATROPIUM BROMIDE/ALBUTEROL respimat INH INH SCH ×4 (09:55→21:24)
[2018-05-23] MEDS: INSULIN ASPART 100 UNITS/ML 3 ML PEN SC SCH ×4 (09:59→21:31)
[2018-05-23] MEDS: DICLOFENAC SOD 1% GEL 100 GM TUBE EXT SCH ×4 (10:05→21:21)
--- NOTE | 2018-05-23 10:21 | Palliative Care Progress Note ---
Date of Service May 23, 2018 Assessment & Plan (1) Palliative care encounter: -This is a 67 year old female who [facility] as she was experiencing shortness of breath for which she was diagnosed post CXR with CHF exacerbation. She has additional PMH including small cell lung cancer, asthma, HLD, A-fib, CAD and Hodgkin's Lymphoma which was diagnosed and treated in the . She sees Dr. Doshi for heme/onc treatment and had her last dose. Per Oncology, her disease process is too advanced and she would not be a candidate for further treatment. -Met with patient in room 422 today after numerous occasions of multiple friends visiting, we were able to connect at the end of the day with her friend and Marina CLEVELAND. -Lengthy conversation regarding her wishes. It is complex regarding her family/social dynamic at home. Her one son, Ivan, who will be the primary caregiver at home has substance abuse in his history which raises concern for supporting him with his recovery and the chance of increased stress at home with caring for both Mom and Dad. -Hospice is aware of the concern and will monitor closely. -Additionally, patient describes her house as a 'hoarding house' in a sense that she has so many things that she would like to go through eventually at home, but realistically understands that she physically may not be able to, which may cause added stress to her. -She also stated that her #1 goal is to have a green party, an end-of-life green party instead of a [id number] green party which was originally planned for October 2018. We discussed that now she will have this green party in May or June. -A main goal is to be with her grandchildren and be able to stay alive to sit in her garden one last time. -We did discuss other options should being home be too challenging for all parties involved, meaning transitioning to a SNF under Hospice, which she agreed to. Patient friend, and Marina CLEVELAND, was at the bedside and will be instrumental with having this discussion if needed at home. -Patient is understanding of her prognosis at this point. She states that she is open to going home with hospice and focusing on her comfort. -Palliative Performance Scale: 40% (2) Chronic diastolic CHF (congestive heart failure): -Managed by Hospitalists and Pulmonary -Pt with recurring pleural effusions -Pt has a history of lymphoma and was tx with radiation and she developed pleural effusions thereafter. -PLeur-X catheter placed today and fluid appeared malignant - sent to pathology. (3) Small cell lung cancer: -Managed by Heme/Onc - Dr. Doshi -Diagnosed in 02/2018 with 2 year prognosis and palliative chemo option -Received last dose of Etoposide and Cisplatin in March 2018. -Plan was to have chemo 05/13, but was medically unstable -Chemotherapy aníbal longer option per Onc - who discussed directly with patient. Subjective Pt denies pain, SOB, N/V/D, appetite changes. Constitutional: + weakness; no body aches Ear, Nose, Mouth, Throat: + dry mouth; no dysphagia Respiratory: + cough; no dyspnea Integumentary: + dry skin Physical Exam Vital Signs (Past 24 Hours): Last Vital Signs Temp 36.9 C 05/23/18 07:23 Pulse 99 H 05/23/18 07:23 Resp 22 05/23/18 07:23 BP 94/57 L 05/23/18 07:23 Pulse Ox 100 05/23/18 07:23 Constitutional: + ill appearing, + thin and + cachectic Eyes: PERRL, conjunctivae normal, anicteric sclerae ENMT: external ear and nose normal, oropharynx normal Neck: normal visual inspection Thyroid: normal thyroid Respiratory: normal respiratory effort and + cough Auscultation: + diminished lung sounds Pt on supplemental O2. Left sided pleur-X drain placed this morning. Cardiovascular: RRR, no murmur, no edema Heart Sounds: normal S1 and normal S2 Gastrointestinal (Abdomen): normal bowel sounds, soft, nontender, no hepatosplenomegaly Percussion/Palpation: abdomen soft Skin: no rashes, warm and dry + turgor decreased Psychiatric: A+Ox3, euthymic affect Affect: euthymic affect Thought Process: goal directed thought process Insight: good insight Judgement: good judgement Time Spent Midlevel Total time spent 90 minutes with > 50% of that time spent reviewing the chart, assessing the patient, and discussing plan of care regarding hospice discharge planning.
--- NOTE | 2018-05-23 11:24 | Hospitalist Progress Note ---
Date of Service May 23, 2018 Assessment & Plan (1) Acute respiratory failure with hypoxia and hypercapnia: Combination of multiple factors including advancing stage 4 small cell lung ca, asthma/copd, decompensated CHF, pleural effusions, and suspected acute bronchitis (and/or pneumonia). Diuresis led to a considerable contraction alkalosis and no significant change in clinical status early on in her course. Cont prednisone daily for asthma/COPD exacerbation. Currently at 50mg/day. Wean every 2 days or so. Cont levaquin total 7 days; will complete tomorrow. s/p left-sided thoracentesis; possible malignant cells from the left-sided tap. Dr. Steele placed left-sided pleurX on 05/23/18. Holding coumadin for possible pleurX insertion. (2) Bilateral pleural effusion: s/p thoracentesis on RIGHT with 1000cc+ yielded. Cytologies negative. Fluid most c/w transudative etiology at that time. s/p left-sided thoracentesis yielding 800cc of fluid. Cytologies possibly +. PleurX on Wednesday (possible) by Dr. Steele on left. Holding coumadin. (3) Acute on chronic diastolic (congestive) heart failure: Attempts at diuresis this admission caused a considerable contraction alkalosis. Lasix was held for some time. Will resume 20mg of lasix daily to maintain euvolemia. BMP am. (4) Primary small cell malignant neoplasm of lung, stage 4: s/p 2 rounds of chemo under the care of Dr. Doshi at the [facility]. She did not tolerate these well. Poor candidate for future chemo. She is considering hospice/palliative care. Dr. Doshi met w/ patient on Wednesday, 05/20 - told her she will not receive further chemo due to poor functional status. Numerous conversations this admission about options for care and palliative care team is involved as well; their efforts appreciated. Home w/ hospice at d/c? (5) Severe protein-calorie malnutrition: Ongoing appetite markedly improved with prednisone consider low-dose prednisone at d/c on chronic basis for appetite (6) Hypothyroidism: TSH 2.8 on 02/2018. Cont synthroid as is. (7) Atrial fibrillation: Holding coumadin as she may need pleurX catheter clinically in NSR on exam today (8) Asthma: probable exacerbation. IMPROVED. cont prednisone 50mg; wean every 2-3 days. cont nebs. (9) CAD (coronary artery disease): troponin negative. no ischemic symptoms. (10) Nausea & vomiting: at time of admission. resolved; has not recurred. (11) DM type 2 (diabetes mellitus, type 2): insulins have been adjusted in the setting of prednisone use continue to monitor (12) Hodgkin lymphoma: history of such now with macrocytosis, leukocytosis, etc development of new bone marrow process? likely not relevant if we elect to go in direction of palliative care (13) Tobacco use disorder: was smoking up until this admission nicoderm patch (14) Gross hematuria: resolved suspect due to steve trauma steve placed this admission due to urinary retention; consider spontaneous voiding trial today or tomorrow. (15) Constipation: finally resolved with milk of mag today cont miralax added senna for bowel maintenance (16) Right foot pain: etiology? does not look like gout or pseudogout x rays neg for fracture overall improved w/ voltaren gel and steroids follow (17) DVT prophylaxis: lovenox 30mg daily since coumadin is on hold patient told me today she wants to go home at discharge disposition is tricky as apparently has dementia and is debilitated, and her son that lives with them just got out of [facility] social work is assisting. Spent 35 minutes in management of patient. Subjective upon entering the room the patient stated "I feel better today" Patient reports she still has a few months left and would like to be discharged later this week. She reports she had the pleurex cath done today and is reporting that she is breathing better. She states she will be ambulating today like she did yesterday. no new complaints Constitutional: + weakness; no fever and no chills Respiratory: + cough; no sputum production Genitourinary (Female): + problem reported (reports she has bladder pain) Physical Exam 2 Vital Signs (Past 24 Hours): Last Vital Signs Temp 36.9 C 05/23/18 07:23 Pulse 99 H 05/23/18 07:23 Resp 22 05/23/18 07:23 BP 94/57 L 05/23/18 07:23 Pulse Ox 100 05/23/18 07:23 Physical Exam: Constitutional: + ill appearing and + cachectic; no acute distress ENMT: external ear and nose normal, oropharynx normal Respiratory: Auscultation: + diminished lung sounds (both bases) and + rales Cardiovascular: Rate/Rhythm: regular rate and regular rhythm Heart Sounds: normal S1 and normal S2 Vessels: posterior tibial pulses present and dorsalis pedis pulses present; no JVD Chest (Breasts): Additional Comments: port - clean, dry Gastrointestinal (Abdomen): normal bowel sounds, soft, nontender, no hepatosplenomegaly Percussion/Palpation: abdomen not rigid Musculoskeletal: right foot - scant swelling today (improved); no tenderness to palpation over any of the metatarsals today Psychiatric: A+Ox3, euthymic affect _ (1) Hodgkin lymphoma Hodgkin lymphoma type: unspecified type Lymphoma site: unspecified region Qualified Code(s): C81.90 - Hodgkin lymphoma, unspecified, unspecified site (2) DM type 2 (diabetes mellitus, type 2) Chronic kidney disease stage: Diabetes mellitus complication detail: Diabetes mellitus complication status: without complication Diabetes mellitus salvage determiner insulin use: without salvage determiner use Diabetes mellitus macular edema: Diabetic retinopathy severity: Laterality: Proliferative retinopathy type : Qualified Code(s): E11.9 - Type 2 diabetes mellitus without complications (3) CAD (coronary artery disease) Associated angina: without angina Coronary Disease-Associated Artery/Lesion type: [place] artery [place] vs. transplanted heart: [place] heart Qualified Code (s): I25.10 - Atherosclerotic heart disease of [place] coronary artery without angina pectoris (4) Atrial fibrillation Atrial fibrillation type: chronic Qualified Code(s): I48.2 - Chronic atrial fibrillation (5) Hypothyroidism Hypothyroidism type: acquired Qualified Code(s): E03.9 - Hypothyroidism, unspecified (6) Nausea & vomiting Vomiting Intractability: unspecified Vomiting type: unspecified Qualified Code(s): R11.2 - Nausea with vomiting, unspecified (7) Constipation Constipation type: other constipation type Qualified Code(s): K59.09 - Other constipation (8) Asthma Asthma complication type: uncomplicated Asthma persistence: persistent Asthma severity: moderate Qualified Code(s): J45.40 - Moderate persistent asthma, uncomplicated
[2018-05-23] MEDS: levoFLOXacin 750 MG TAB PO SCH (11:52)
[2018-05-23] MEDS: ACETAMINOPHEN 325 MG TAB PO PRN ×2 (14:33→23:36)
[2018-05-23] MEDS: ASPIRIN 81 MG ECTAB PO SCH (21:24)
[2018-05-23] MEDS: LIDOCAINE 5% 1 PATCH TD SCH ×2 (21:28→21:29)
[2018-05-24] MEDS: ACETAMINOPHEN 325 MG TAB PO PRN ×2 (06:48→21:39)
[2018-05-24] MEDS: LEVOTHYROXINE SODIUM 112 MCG TABLET PO SCH (06:48)
[2018-05-24] MEDS: CLOTRIMAZOLE 10 MG TROCHE BUCCAL SCH ×5 (06:48→23:35)
[2018-05-24] MEDS: INSULIN ASPART 100 UNITS/ML 3 ML PEN SC SCH ×4 (08:20→21:34)
[2018-05-24] MEDS: LACTOBACILLUS ACIDOPHILUS (FLORANEX) TAB PO SCH ×3 (08:21→16:42)
[2018-05-24] MEDS: DOCUSATE SODIUM 100 MG CAP PO SCH ×2 (08:23→21:17)
[2018-05-24] MEDS: LORATADINE 10 MG TAB PO SCH (08:23)
[2018-05-24] MEDS: SENNA 8.6 MG TAB PO SCH (08:25)
[2018-05-24] MEDS: FUROSEMIDE 20 MG TAB PO SCH (08:26)
[2018-05-24] MEDS: MAGNESIUM OXIDE 400 MG TAB PO SCH ×2 (08:26→21:23)
[2018-05-24] MEDS: BACLOFEN 10 MG TAB PO SCH ×2 (08:26→21:23)
[2018-05-24] MEDS: FOLIC ACID 1 MG TAB PO SCH (08:27)
[2018-05-24] MEDS: IPRATROPIUM BROMIDE/ALBUTEROL respimat INH INH SCH ×4 (08:28→21:15)
[2018-05-24] MEDS: ENOXAPARIN INJ 30 MG/0.3 ML SYR SQ SCH (08:29)
[2018-05-24] MEDS: FLUTICASONE PROPIONATE NA SPR 16 GM BTL SCH (08:29)
[2018-05-24] MEDS: POLYETHYLENE (MIRALAX) 17 GM PACK PO SCH (08:30)
[2018-05-24] MEDS: FLUTICASONE/SALMETEROL 250/50 (ADVAIR) 14 PUFF/1 INHALER INH SCH ×2 (08:30→21:16)
[2018-05-24] MEDS: predniSONE 50 MG TAB PO SCH (08:32)
[2018-05-24] MEDS: INSULIN GLARGINE SOLOSTAR 100 UNITS/ML 3 ML PEN SC SCH ×2 (08:32→21:33)
[2018-05-24] MEDS: PANTOprazole 40 MG TAB PO SCH (08:33)
[2018-05-24] MEDS: METOPROLOL SUCC 50MG EXT REL TAB PO SCH (08:33)
[2018-05-24] MEDS: DICLOFENAC SOD 1% GEL 100 GM TUBE EXT SCH ×4 (08:34→21:23)
--- NOTE | 2018-05-24 08:54 | Progress Note ---
DATE: 05/24/2018 Ms. Preston was seen today. She had a much quieter night. We drained 325 mL of bloody fluid out from the PleurX. She tolerated it well. She is much more comfortable. In addition she is 100% saturation on 2 liters, so hopefully we can wean the O2 off. I would check a chest x-ray in a few days to assess her right side. The cytology on this fluid is still pending.
[2018-05-24] MEDS: levoFLOXacin 750 MG TAB PO SCH (11:10)
--- NOTE | 2018-05-24 13:38 | Palliative Care Progress Note ---
Date of Service May 24, 2018 Assessment & Plan (1) Palliative care encounter: -Patient is stabilizing and feeling much better than last week. Her mental status is back to normal. Her breathing is back to baseline. -Pleur-x catheter was placed on 05/23. need to determine if this is staying in, how often it needs drained, etc. -Patient is adamant that she would like to go home. she is feeling a little overwhelmed about all the decision making. She is certainly open to the idea of hospice which we further discussed today. She stated, "I just need a week at home, then I can decide whether or not to go on hospice. If she goes home with the drain, she will at least need home health then could transition to hospice when ready. -She has no pain or discomfort at this time. -Will continue to follow and assist with any decision making. (2) Chronic diastolic CHF (congestive heart failure): (3) Small cell lung cancer: Subjective Patient is feeling well today. She has no pain or discomfort. She is tolerating the Pleur-x catheter well at this time. Long discussion about GOC and EOL issues. Constitutional: + weakness Ear, Nose, Mouth, Throat: no dysphagia Respiratory: + cough and + dyspnea on exertion; no sputum production Cardiovascular: no chest pain and no edema Gastrointestinal: no abdominal pain, no nausea and no vomiting Neurologic: no confusion Psychiatric: no depression and no anxiety Physical Exam Vital Signs (Past 24 Hours): Last Vital Signs Temp 36.5 C 05/24/18 11:24 Pulse 96 H 05/24/18 11:24 Resp 16 05/24/18 11:24 BP 94/57 L 05/24/18 11:24 Pulse Ox 99 05/24/18 11:24 Constitutional: + ill appearing and + thin ENMT: external ear and nose normal, oropharynx normal Neck: normal visual inspection Respiratory: normal respiratory effort and + cough Auscultation: + diminished lung sounds Cardiovascular: RRR, no murmur, no edema Gastrointestinal (Abdomen): normal bowel sounds, soft, nontender, no hepatosplenomegaly Skin: no rashes, warm and dry Psychiatric: A+Ox3, euthymic affect Insight: good insight Time Spent Midlevel 45 minutes with >50% of time spent at bedside with patient discussing GOC and EOL issues.
[2018-05-24] MEDS: ASPIRIN 81 MG ECTAB PO SCH (21:17)
[2018-05-24] MEDS: LIDOCAINE 5% 1 PATCH TD SCH ×2 (21:18)
--- NOTE | 2018-05-24 22:52 | Hospitalist Progress Note ---
Date of Service May 24, 2018 Assessment & Plan (1) Acute respiratory failure with hypoxia and hypercapnia: Combination of multiple factors including advancing stage 4 small cell lung ca, asthma/copd, decompensated CHF, pleural effusions, and suspected acute bronchitis (and/or pneumonia). Diuresis led to a considerable contraction alkalosis and no significant change in clinical status early on in her course. Cont prednisone daily for asthma/COPD exacerbation. Currently at 50mg/day. Wean every 2 days or so. Cont levaquin total 7 days; will complete tomorrow. s/p left-sided thoracentesis; possible malignant cells from the left-sided tap. Dr. Steele placed left-sided pleurX on 05/23/18. resume coumadin tomorrow (2) Bilateral pleural effusion: s/p thoracentesis on RIGHT with 1000cc+ yielded. Cytologies negative. Fluid most c/w transudative etiology at that time. s/p left-sided thoracentesis yielding 800cc of fluid. Cytologies possibly +. PleurX placed on Wednesday by Dr. Steele on left. resume coumadin in AM. (3) Acute on chronic diastolic (congestive) heart failure: Attempts at diuresis this admission caused a considerable contraction alkalosis. Lasix was held for some time. Will resume 20mg of lasix daily to maintain euvolemia. BMP am. (4) Primary small cell malignant neoplasm of lung, stage 4: s/p 2 rounds of chemo under the care of Dr. Doshi at the [facility]. She did not tolerate these well. Poor candidate for future chemo. She is considering hospice/palliative care. Dr. Doshi met w/ patient on Wednesday, 05/20 - told her she will not receive further chemo due to poor functional status. Numerous conversations this admission about options for care and palliative care team is involved as well; their efforts appreciated. Home w/ hospice at d/c? Patient currently refusing. (5) Severe protein-calorie malnutrition: Ongoing appetite markedly improved with prednisone consider low-dose prednisone at d/c on chronic basis for appetite (6) Hypothyroidism: TSH 2.8 on 02/2018. Cont synthroid as is. (7) Atrial fibrillation: Holding coumadin as she may need pleurX catheter clinically in NSR on exam today (8) Asthma: probable exacerbation. IMPROVED. cont prednisone 50mg; wean every 2-3 days. cont nebs. (9) CAD (coronary artery disease): troponin negative. no ischemic symptoms. (10) Nausea & vomiting: at time of admission. resolved; has not recurred. (11) DM type 2 (diabetes mellitus, type 2): insulins have been adjusted in the setting of prednisone use continue to monitor (12) Hodgkin lymphoma: history of such now with macrocytosis, leukocytosis, etc development of new bone marrow process? likely not relevant if we elect to go in direction of palliative care (13) Tobacco use disorder: was smoking up until this admission nicoderm patch (14) Gross hematuria: resolved suspect due to steve trauma steve placed this admission due to urinary retention; consider spontaneous voiding trial; will remove folrey in AM. (15) Constipation: finally resolved with milk of mag today cont miralax added senna for bowel maintenance (16) Right foot pain: etiology? does not look like gout or pseudogout x rays neg for fracture overall improved w/ voltaren gel and steroids follow (17) DVT prophylaxis: lovenox 30mg daily since coumadin is on hold patient told me today she wants to go home at discharge disposition is tricky as apparently has dementia and is debilitated, and her son that lives with them just got out of [facility] social work is assisting. Spent 25 minutes in management of patient. Subjective Patient reports no new complaints today. She is unsure if she wants hospice or not. She wants to go home. Will need to arrange home services for pleurex. no new complaints Constitutional: + weakness; no fever and no chills Respiratory: + cough; no sputum production Genitourinary (Female): + problem reported (reports she has bladder pain) Physical Exam 2 Vital Signs (Past 24 Hours): Last Vital Signs Temp 36.7 C 05/24/18 19:27 Pulse 96 H 05/24/18 19:27 Resp 18 05/24/18 19:27 BP 111/67 05/24/18 19:27 Pulse Ox 99 05/24/18 19:27 Physical Exam: Constitutional: + ill appearing and + cachectic; no acute distress ENMT: external ear and nose normal, oropharynx normal Respiratory: Auscultation: + diminished lung sounds (both bases) and + rales Cardiovascular: Rate/Rhythm: regular rate and regular rhythm Heart Sounds: normal S1 and normal S2 Vessels: posterior tibial pulses present and dorsalis pedis pulses present; no JVD Chest (Breasts): Additional Comments: port - clean, dry Gastrointestinal (Abdomen): normal bowel sounds, soft, nontender, no hepatosplenomegaly Percussion/Palpation: abdomen not rigid Musculoskeletal: right foot - scant swelling today (improved); no tenderness to palpation over any of the metatarsals today Psychiatric: A+Ox3, euthymic affect _ (1) Hodgkin lymphoma Hodgkin lymphoma type: unspecified type Lymphoma site: unspecified region Qualified Code(s): C81.90 - Hodgkin lymphoma, unspecified, unspecified site (2) DM type 2 (diabetes mellitus, type 2) Chronic kidney disease stage: Diabetes mellitus complication detail: Diabetes mellitus complication status: without complication Diabetes mellitus predatory animal exterminator insulin use: without senior care use Diabetes mellitus macular edema: Diabetic retinopathy severity: Laterality: Proliferative retinopathy type : Qualified Code(s): E11.9 - Type 2 diabetes mellitus without complications (3) CAD (coronary artery disease) Associated angina: without angina Coronary Disease-Associated Artery/Lesion type: [place] artery [place] vs. transplanted heart: [place] heart Qualified Code (s): I25.10 - Atherosclerotic heart disease of [place] coronary artery without angina pectoris (4) Atrial fibrillation Atrial fibrillation type: chronic Qualified Code(s): I48.2 - Chronic atrial fibrillation (5) Hypothyroidism Hypothyroidism type: acquired Qualified Code(s): E03.9 - Hypothyroidism, unspecified (6) Nausea & vomiting Vomiting Intractability: unspecified Vomiting type: unspecified Qualified Code(s): R11.2 - Nausea with vomiting, unspecified (7) Constipation Constipation type: other constipation type Qualified Code(s): K59.09 - Other constipation (8) Asthma Asthma complication type: uncomplicated Asthma persistence: persistent Asthma severity: moderate Qualified Code(s): J45.40 - Moderate persistent asthma, uncomplicated
[2018-05-25] MEDS: ACETAMINOPHEN 325 MG TAB PO PRN (06:37)
[2018-05-25] MEDS: LEVOTHYROXINE SODIUM 112 MCG TABLET PO SCH (06:38)
[2018-05-25] MEDS: CLOTRIMAZOLE 10 MG TROCHE BUCCAL SCH ×5 (06:40→21:00)
--- NOTE | 2018-05-25 08:00 | XRay Report ---
XR chest 1V portable CLINICAL HISTORY: effusion pleural effusion COMPARISON STUDY: 05/23/2018 FINDINGS: The basilar drainage catheter unchanged in position. Trace left basilar pleural fluid chloe nuing to show slight improvement from the prior exam. No evidence of pneumothorax. Trace right pleural effusion unchanged. IMPRESSION: Stable to minimally improved exam compared to the prior study. 2. Small stable right effusion. 3. Left basilar drainage catheter in good position with no evidence for pneumothorax. The above report was generated using voice recognition software. It may contain grammatical, syntax or spelling errors. Electronically signed by: Zen Abel M.D. 05/25/2018 7:59 AM
[2018-05-25] MEDS: FOLIC ACID 1 MG TAB PO SCH (08:28)
[2018-05-25] MEDS: BACLOFEN 10 MG TAB PO SCH ×2 (08:28→20:59)
[2018-05-25] MEDS: DOCUSATE SODIUM 100 MG CAP PO SCH ×2 (08:29→20:59)
[2018-05-25] MEDS: LACTOBACILLUS ACIDOPHILUS (FLORANEX) TAB PO SCH ×3 (08:29→17:27)
[2018-05-25] MEDS: METOPROLOL SUCC 50MG EXT REL TAB PO SCH (08:29)
[2018-05-25] MEDS: PANTOprazole 40 MG TAB PO SCH (08:30)
[2018-05-25] MEDS: LORATADINE 10 MG TAB PO SCH (08:30)
[2018-05-25] MEDS: FLUTICASONE/SALMETEROL 250/50 (ADVAIR) 14 PUFF/1 INHALER INH SCH ×2 (08:31→20:56)
[2018-05-25] MEDS: IPRATROPIUM BROMIDE/ALBUTEROL respimat INH INH SCH ×4 (08:35→20:56)
[2018-05-25] MEDS: predniSONE 50 MG TAB PO SCH (08:36)
[2018-05-25] MEDS: MAGNESIUM OXIDE 400 MG TAB PO SCH ×2 (08:36→20:58)
[2018-05-25] MEDS: POLYETHYLENE (MIRALAX) 17 GM PACK PO SCH (08:37)
[2018-05-25] MEDS: SENNA 8.6 MG TAB PO SCH (08:37)
[2018-05-25] MEDS: INSULIN GLARGINE SOLOSTAR 100 UNITS/ML 3 ML PEN SC SCH ×2 (08:37→21:02)
[2018-05-25] MEDS: INSULIN ASPART 100 UNITS/ML 3 ML PEN SC SCH ×4 (08:39→21:02)
[2018-05-25] MEDS: FLUTICASONE PROPIONATE NA SPR 16 GM BTL SCH (08:40)
[2018-05-25] MEDS: FUROSEMIDE 20 MG TAB PO SCH (08:40)
[2018-05-25] MEDS: ENOXAPARIN INJ 30 MG/0.3 ML SYR SQ SCH (08:41)
[2018-05-25] MEDS: DICLOFENAC SOD 1% GEL 100 GM TUBE EXT SCH ×4 (08:41→20:55)
--- NOTE | 2018-05-25 15:24 | Palliative Care Progress Note ---
Date of Service May 25, 2018 Assessment & Plan (1) Palliative care encounter: -Patient is stabilizing and feeling much better than last week. Her mental status is back to normal. Her breathing is back to baseline. -Pleur-x catheter was placed on 05/23. need to determine if this is staying in, how often it needs drained, etc. -May need Pleur-x on other side as well. Dr. Steele following. -Plan will be for patient to go home with home health. She is aware that hospice is an option when she needs/wants it. -POLST form was explained to patient, she will let us know if she wants to fill it out. (2) Chronic diastolic CHF (congestive heart failure): (3) Small cell lung cancer: Subjective 25 minutes with >50% of time spent at bedside with patient discussing goals and plan of care. Constitutional: + fatigue and + weakness Ear, Nose, Mouth, Throat: no dysphagia Respiratory: + cough and + dyspnea on exertion Cardiovascular: no chest pain and no edema Gastrointestinal: no abdominal pain, no nausea and no vomiting Neurologic: no confusion Psychiatric: no depression and no anxiety Physical Exam Vital Signs (Past 24 Hours): Last Vital Signs Temp 36.6 C 05/25/18 11:00 Pulse 93 H 05/25/18 11:00 Resp 18 05/25/18 11:00 BP 109/70 05/25/18 11:00 Pulse Ox 95 05/25/18 11:00 Constitutional: + thin ENMT: external ear and nose normal, oropharynx normal Neck: normal visual inspection Respiratory: normal respiratory effort and + cough Auscultation: + diminished lung sounds Cardiovascular: RRR, no murmur, no edema Gastrointestinal (Abdomen): normal bowel sounds, soft, nontender, no hepatosplenomegaly Skin: no rashes, warm and dry Psychiatric: A+Ox3, euthymic affect Insight: good insight
[2018-05-25] MEDS: WARFARIN SOD 2.5 MG TAB PO SCH ×2 (17:27→17:38)
--- NOTE | 2018-05-25 19:26 | Progress Note ---
DATE: 05/25/2018 Ms. Preston was seen today. She looks great. She is walking better. She feels better. Her only real complaint is that she is weak. She is on 2 liters with 95% saturation and we took her off of oxygen for several minutes and she maintained a 95-96% saturation. Her x-ray looks good on the left. I think the x-ray actually looks a bit better on the right too. She certainly sounds better. She is close to going home from my standpoint. The hospice service is involved in this case and it is unclear to me when she will be discharged. At this point, I will be glad to help out in any way we can.
[2018-05-25] MEDS: LIDOCAINE 5% 1 PATCH TD SCH ×2 (20:57)
[2018-05-25] MEDS: ASPIRIN 81 MG ECTAB PO SCH (20:58)
--- NOTE | 2018-05-25 23:05 | Hospitalist Progress Note ---
Date of Service May 25, 2018 Assessment & Plan (1) Acute respiratory failure with hypoxia and hypercapnia: Combination of multiple factors including advancing stage 4 small cell lung ca, asthma/copd, decompensated CHF, pleural effusions, and suspected acute bronchitis (and/or pneumonia). Diuresis led to a considerable contraction alkalosis and no significant change in clinical status early on in her course. Cont prednisone daily for asthma/COPD exacerbation. Currently at 50mg/day. Wean every 2 days or so. Cont levaquin total 7 days; will complete tomorrow. s/p left-sided thoracentesis; possible malignant cells from the left-sided tap. Dr. Steele placed left-sided pleurX on 05/23/18. Dr. STEELE [place] [facility] A second pleurx later in the week. resume coumadin today but patient refused (2) Bilateral pleural effusion: s/p thoracentesis on RIGHT with 1000cc+ yielded. Cytologies negative. Fluid most c/w transudative etiology at that time. s/p left-sided thoracentesis yielding 800cc of fluid. Cytologies possibly +. PleurX placed on Wednesday by Dr. Steele on left. resume coumadin today. Patient however refused dose (3) Acute on chronic diastolic (congestive) heart failure: Attempts at diuresis this admission caused a considerable contraction alkalosis. Lasix was held for some time. On 20mg of lasix daily to maintain euvolemia. (4) Primary small cell malignant neoplasm of lung, stage 4: s/p 2 rounds of chemo under the care of Dr. Doshi at the [facility]. She did not tolerate these well. Poor candidate for future chemo. She is considering hospice/palliative care. Dr. Doshi met w/ patient on Wednesday, 05/20 - told her she will not receive further chemo due to poor functional status. Numerous conversations this admission about options for care and palliative care team is involved as well; their efforts appreciated. Home w/ hospice at d/c? Patient currently refusing. (5) Severe protein-calorie malnutrition: Ongoing appetite markedly improved with prednisone consider low-dose prednisone at d/c on chronic basis for appetite (6) Hypothyroidism: TSH 2.8 on 02/2018. Cont synthroid as is. (7) Atrial fibrillation: restarted coumadin clinically in NSR on exam today (8) Asthma: probable exacerbation. IMPROVED. cont prednisone 50mg; wean every 2-3 days. cont nebs. (9) CAD (coronary artery disease): troponin negative. no ischemic symptoms. (10) Nausea & vomiting: at time of admission. resolved; has not recurred. (11) DM type 2 (diabetes mellitus, type 2): insulins have been adjusted in the setting of prednisone use continue to monitor (12) Hodgkin lymphoma: history of such now with macrocytosis, leukocytosis, etc development of new bone marrow process? likely not relevant if we elect to go in direction of palliative care (13) Tobacco use disorder: was smoking up until this admission nicoderm patch (14) Gross hematuria: resolved suspect due to steve trauma remove steve patient is diuresing. (15) Constipation: finally resolved with milk of mag today cont miralax added senna for bowel maintenance (16) Right foot pain: etiology? does not look like gout or pseudogout x rays neg for fracture overall improved w/ voltaren gel and steroids follow (17) DVT prophylaxis: lovenox 30mg daily since coumadin is on hold social work is assisting. Spent 25 minutes in management of patient. Subjective Patient reports no new complaints today. She wants to go home and possibly transition to hospice in 2 weeks. Will need to arrange home services for pleurex. no new complaints Constitutional: + weakness; no fever and no chills Respiratory: + cough; no sputum production Genitourinary (Female): + problem reported (reports she has bladder pain) Physical Exam Vital Signs (Past 24 Hours): Last Vital Signs Temp 37.1 C 05/25/18 19:23 Pulse 93 H 05/25/18 19:23 Resp 20 05/25/18 19:23 BP 107/59 L 05/25/18 19:23 Pulse Ox 94 05/25/18 19:23 Physical Exam: Constitutional: + ill appearing and + cachectic; no acute distress ENMT: external ear and nose normal, oropharynx normal Respiratory: Auscultation: + diminished lung sounds (both bases) and + rales Cardiovascular: Rate/Rhythm: regular rate and regular rhythm Heart Sounds: normal S1 and normal S2 Vessels: posterior tibial pulses present and dorsalis pedis pulses present; no JVD Chest (Breasts): Additional Comments: port - clean, dry Gastrointestinal (Abdomen): normal bowel sounds, soft, nontender, no hepatosplenomegaly Percussion/Palpation: abdomen not rigid Musculoskeletal: right foot - scant swelling today (improved); no tenderness to palpation over any of the metatarsals today Psychiatric: A+Ox3, euthymic affect (1) Hypothyroidism Hypothyroidism type: acquired Qualified Code(s): E03.9 - Hypothyroidism, unspecified (2) Atrial fibrillation Atrial fibrillation type: chronic Qualified Code(s): I48.2 - Chronic atrial fibrillation (3) Asthma Asthma severity: moderate Asthma persistence: persistent Asthma complication type: uncomplicated Qualified Code(s): J45.40 - Moderate persistent asthma, uncomplicated (4) CAD (coronary artery disease) Coronary Disease-Associated Artery/Lesion type: [place] artery [place] vs. transplanted heart: [place] heart Associated angina: without angina Qualified Code(s): I25.10 - Atherosclerotic heart disease of [place] coronary artery without angina pectoris (5) Nausea & vomiting Vomiting type: unspecified Vomiting Intractability: unspecified Qualified Code(s): R11.2 - Nausea with vomiting, unspecified (6) DM type 2 (diabetes mellitus, type 2) Diabetes mellitus correction insulin use: without correction use Diabetes mellitus complication status: without complication Qualified Code(s): E11.9 - Type 2 diabetes mellitus without complications (7) Hodgkin lymphoma Hodgkin lymphoma type: unspecified type Lymphoma site: unspecified region Qualified Code(s): C81.90 - Hodgkin lymphoma, unspecified, unspecified site (8) Constipation Constipation type: other constipation type Qualified Code(s): K59.09 - Other constipation
[2018-05-26] MEDS: LEVOTHYROXINE SODIUM 112 MCG TABLET PO SCH (05:31)
[2018-05-26] MEDS: CLOTRIMAZOLE 10 MG TROCHE BUCCAL SCH ×5 (05:32→22:18)
[2018-05-26] MEDS: ACETAMINOPHEN 325 MG TAB PO PRN (05:50)
[2018-05-26] MEDS: DICLOFENAC SOD 1% GEL 100 GM TUBE EXT SCH ×4 (09:44→20:53)
[2018-05-26] MEDS: BACLOFEN 10 MG TAB PO SCH ×2 (09:44→20:52)
[2018-05-26] MEDS: PANTOprazole 40 MG TAB PO SCH (09:44)
[2018-05-26] MEDS: LACTOBACILLUS ACIDOPHILUS (FLORANEX) TAB PO SCH ×3 (09:44→17:51)
[2018-05-26] MEDS: METOPROLOL SUCC 50MG EXT REL TAB PO SCH (09:44)
[2018-05-26] MEDS: POLYETHYLENE (MIRALAX) 17 GM PACK PO SCH (09:45)
[2018-05-26] MEDS: DOCUSATE SODIUM 100 MG CAP PO SCH ×2 (09:45→20:53)
[2018-05-26] MEDS: ENOXAPARIN INJ 30 MG/0.3 ML SYR SQ SCH (09:45)
[2018-05-26] MEDS: predniSONE 50 MG TAB PO SCH (09:45)
[2018-05-26] MEDS: MAGNESIUM OXIDE 400 MG TAB PO SCH ×2 (09:45→20:53)
[2018-05-26] MEDS: LORATADINE 10 MG TAB PO SCH (09:46)
[2018-05-26] MEDS: FLUTICASONE PROPIONATE NA SPR 16 GM BTL SCH (09:46)
[2018-05-26] MEDS: FUROSEMIDE 20 MG TAB PO SCH (09:46)
[2018-05-26] MEDS: FLUTICASONE/SALMETEROL 250/50 (ADVAIR) 14 PUFF/1 INHALER INH SCH ×2 (09:46→20:52)
[2018-05-26] MEDS: FOLIC ACID 1 MG TAB PO SCH (09:47)
[2018-05-26] MEDS: IPRATROPIUM BROMIDE/ALBUTEROL respimat INH INH SCH ×4 (09:47→20:52)
[2018-05-26] MEDS: SENNA 8.6 MG TAB PO SCH (09:48)
[2018-05-26] MEDS: INSULIN ASPART 100 UNITS/ML 3 ML PEN SC SCH ×4 (09:49→20:56)
[2018-05-26] MEDS: INSULIN GLARGINE SOLOSTAR 100 UNITS/ML 3 ML PEN SC SCH ×2 (09:50→20:56)
--- NOTE | 2018-05-26 10:02 | Surgery Progress Note ---
Date of Service May 26, 2018 Assessment & Plan (1) Bilateral pleural effusion: -pt. doing well -continue to drain left pleurex catheter -most recent CXR shows some reaccumulation of fluid on the right -if her breathing becomes labored will consider placement of pleurex on right side -at time of discharge will see her back in office in 1-2 weeks with CXR Subjective Pt. notes her breathing feels better since pleurex placed. Physical Exam Vital Signs (Past 24 Hours): Last Vital Signs Temp 36.5 C 05/26/18 08:28 Pulse 88 05/26/18 08:28 Resp 16 05/26/18 08:28 BP 112/65 05/26/18 08:28 Pulse Ox 100 05/26/18 08:28 Respiratory: no respiratory distress and no labored breathing BS are decreased at bases R>L
[2018-05-26] MEDS: WARFARIN SOD 5 MG TAB PO SCH (17:50)
[2018-05-26] MEDS: LIDOCAINE 5% 1 PATCH TD SCH ×2 (20:54)
[2018-05-26] MEDS: ASPIRIN 81 MG ECTAB PO SCH (20:55)
--- NOTE | 2018-05-26 22:21 | Hospitalist Progress Note ---
Date of Service May 26, 2018 Assessment & Plan (1) Acute respiratory failure with hypoxia and hypercapnia: Combination of multiple factors including advancing stage 4 small cell lung ca, asthma/copd, decompensated CHF, pleural effusions, and suspected acute bronchitis (and/or pneumonia). Diuresis led to a considerable contraction alkalosis and no significant change in clinical status early on in her course. Cont prednisone daily for asthma/COPD exacerbation. Currently at 50mg/day. Wean every 2 days or so. Cont levaquin has been completed. s/p left-sided thoracentesis; possible malignant cells from the left-sided tap. Dr. Steele placed left-sided pleurX on 05/23/18. Dr. STEELE did not find neccesary a second pleurx. May consider discharge tomorrow. Arranging discharge with case management. TITRATING OFF OXYGEN. Ordered coumadin. Patient refused dose on 05/25 (2) Bilateral pleural effusion: s/p thoracentesis on RIGHT with 1000cc+ yielded. Cytologies negative. Fluid most c/w transudative etiology at that time. s/p left-sided thoracentesis yielding 800cc of fluid. Cytologies possibly +. PleurX placed on Wednesday by Dr. Setele on left. resume coumadin yesterday. Patient however refused dose (3) Acute on chronic diastolic (congestive) heart failure: Attempts at diuresis this admission caused a considerable contraction alkalosis. Lasix was held for some time. On 20mg of lasix daily to maintain euvolemia. (4) Primary small cell malignant neoplasm of lung, stage 4: s/p 2 rounds of chemo under the care of Dr. Doshi at the [facility]. She did not tolerate these well. Poor candidate for future chemo. She is considering hospice/palliative care. Dr. Doshi met w/ patient on Wednesday, 05/20 - told her she will not receive further chemo due to poor functional status. Numerous conversations this admission about options for care and palliative care team is involved as well; their efforts appreciated. Home w/ hospice at d/c? Patient currently refusing. Patient wants to be sent home on home health. (5) Severe protein-calorie malnutrition: Ongoing appetite markedly improved with prednisone consider low-dose prednisone at d/c on chronic basis for appetite (6) Hypothyroidism: TSH 2.8 on 02/2018. Cont synthroid as is. (7) Atrial fibrillation: restarted coumadin clinically in NSR on exam today (8) Asthma: probable exacerbation. IMPROVED. cont prednisone 50mg; wean every 2-3 days. cont nebs. (9) CAD (coronary artery disease): troponin negative. no ischemic symptoms. (10) Nausea & vomiting: at time of admission. resolved; has not recurred. (11) DM type 2 (diabetes mellitus, type 2): insulins have been adjusted in the setting of prednisone use continue to monitor (12) Hodgkin lymphoma: history of such now with macrocytosis, leukocytosis, etc development of new bone marrow process? likely not relevant if we elect to go in direction of palliative care (13) Tobacco use disorder: was smoking up until this admission nicoderm patch (14) Gross hematuria: resolved suspect due to steve trauma removed steve ;patient is diuresing. (15) Constipation: finally resolved with milk of mag today cont miralax added senna for bowel maintenance (16) Right foot pain: etiology? does not look like gout or pseudogout x rays neg for fracture overall improved w/ voltaren gel and steroids follow (17) DVT prophylaxis: lovenox 30mg daily added coumadin. social work is assisting. Spent 25 minutes in management of patient. Subjective Patient reports no new complaints today. Constitutional: + weakness; no fever and no chills Respiratory: + cough; no sputum production Genitourinary (Female): + problem reported (reports she has bladder pain) Physical Exam Vital Signs (Past 24 Hours): Last Vital Signs Temp 36.2 C L 05/26/18 19:39 Pulse 93 H 05/26/18 19:39 Resp 22 05/26/18 19:39 BP 110/64 05/26/18 19:39 Pulse Ox 96 05/26/18 21:21 Physical Exam: Constitutional: + ill appearing and + cachectic; no acute distress ENMT: external ear and nose normal, oropharynx normal Respiratory: Auscultation: improved breath sounds, no rales. Cardiovascular: Rate/Rhythm: regular rate and regular rhythm Heart Sounds: normal S1 and normal S2 Vessels: posterior tibial pulses present and dorsalis pedis pulses present; no JVD Chest (Breasts): Additional Comments: port - clean, dry Gastrointestinal (Abdomen): normal bowel sounds, soft, nontender, no hepatosplenomegaly Percussion/Palpation: abdomen not rigid Musculoskeletal: right foot - scant swelling today (improved); no tenderness to palpation over any of the metatarsals today Psychiatric: A+Ox3, euthymic affect (1) Hypothyroidism Hypothyroidism type: acquired Qualified Code(s): E03.9 - Hypothyroidism, unspecified (2) Atrial fibrillation Atrial fibrillation type: chronic Qualified Code(s): I48.2 - Chronic atrial fibrillation (3) Asthma Asthma severity: moderate Asthma persistence: persistent Asthma complication type: uncomplicated Qualified Code(s): J45.40 - Moderate persistent asthma, uncomplicated (4) CAD (coronary artery disease) Coronary Disease-Associated Artery/Lesion type: [place] artery [place] vs. transplanted heart: [place] heart Associated angina: without angina Qualified Code(s): I25.10 - Atherosclerotic heart disease of [place] coronary artery without angina pectoris (5) Nausea & vomiting Vomiting type: unspecified Vomiting Intractability: unspecified Qualified Code(s): R11.2 - Nausea with vomiting, unspecified (6) DM type 2 (diabetes mellitus, type 2) Diabetes mellitus oil heaterman insulin use: without oil heaterman use Diabetes mellitus complication status: without complication Qualified Code(s): E11.9 - Type 2 diabetes mellitus without complications (7) Hodgkin lymphoma Hodgkin lymphoma type: unspecified type Lymphoma site: unspecified region Qualified Code(s): C81.90 - Hodgkin lymphoma, unspecified, unspecified site (8) Constipation Constipation type: other constipation type Qualified Code(s): K59.09 - Other constipation
[2018-05-27] MEDS: LEVOTHYROXINE SODIUM 112 MCG TABLET PO SCH (06:27)
[2018-05-27] MEDS: CLOTRIMAZOLE 10 MG TROCHE BUCCAL SCH ×3 (06:27→15:18)
[2018-05-27] MEDS: FLUTICASONE/SALMETEROL 250/50 (ADVAIR) 14 PUFF/1 INHALER INH SCH (08:16)
[2018-05-27] MEDS: PANTOprazole 40 MG TAB PO SCH (08:16)
[2018-05-27] MEDS: LACTOBACILLUS ACIDOPHILUS (FLORANEX) TAB PO SCH ×2 (08:17→12:21)
[2018-05-27] MEDS: SENNA 8.6 MG TAB PO SCH (08:17)
[2018-05-27] MEDS: DOCUSATE SODIUM 100 MG CAP PO SCH (08:17)
[2018-05-27] MEDS: MAGNESIUM OXIDE 400 MG TAB PO SCH (08:17)
[2018-05-27] MEDS: METOPROLOL SUCC 50MG EXT REL TAB PO SCH (08:17)
[2018-05-27] MEDS: IPRATROPIUM BROMIDE/ALBUTEROL respimat INH INH SCH ×2 (08:18→12:22)
[2018-05-27] MEDS: FOLIC ACID 1 MG TAB PO SCH (08:18)
[2018-05-27] MEDS: BACLOFEN 10 MG TAB PO SCH (08:18)
[2018-05-27] MEDS: FUROSEMIDE 20 MG TAB PO SCH (08:19)
[2018-05-27] MEDS: ENOXAPARIN INJ 30 MG/0.3 ML SYR SQ SCH (08:19)
[2018-05-27] MEDS: FLUTICASONE PROPIONATE NA SPR 16 GM BTL SCH (08:20)
[2018-05-27] MEDS: LORATADINE 10 MG TAB PO SCH (08:20)
[2018-05-27] MEDS: INSULIN ASPART 100 UNITS/ML 3 ML PEN SC SCH ×2 (08:21→12:24)
[2018-05-27] MEDS: POLYETHYLENE (MIRALAX) 17 GM PACK PO SCH (08:22)
[2018-05-27] MEDS: INSULIN GLARGINE SOLOSTAR 100 UNITS/ML 3 ML PEN SC SCH (08:22)
[2018-05-27] MEDS: DICLOFENAC SOD 1% GEL 100 GM TUBE EXT SCH ×2 (08:22→12:22)
[2018-05-27] MEDS: predniSONE 50 MG TAB PO SCH (08:23)
--- NOTE | 2018-05-27 10:53 | Palliative Care Progress Note ---
Date of Service May 27, 2018 Assessment & Plan (1) Palliative care encounter: -Patient is stabilizing and feeling much better than last week. Her mental status is back to normal. Her breathing is back to baseline. -Pleur-x catheter was placed on 05/23, currently being drained every other day. -May need Pleur-x on other side as well. Dr. Steele following. -Plan will be for patient to go home with home health. She is aware that hospice is an option when she needs/wants it and plans to transition once home. -Pt has POLST form and declined completion at this time. (2) Chronic diastolic CHF (congestive heart failure): -Managed by Hospitalists and Pulmonary -Pt with recurring pleural effusions -Pt has a history of lymphoma and was tx with radiation and she developed pleural effusions thereafter. -PLeur-X catheter placed and fluid pending pathology- suspicious for malignancy (3) Small cell lung cancer: -Managed by Heme/Onc - Dr. Doshi -Diagnosed in 02/2018 with 2 year prognosis and palliative chemo option -Received last dose of Etoposide and Cisplatin in March 2018. -Plan was to have chemo 05/13, but was medically unstable -Chemotherapy is longer option per Onc - who discussed directly with patient. Subjective Pt sitting up at the side of her bed in very good spirits. Pt denies pain or SOB. Patient states she is eager to go home. Constitutional: + fatigue and + weakness Respiratory: + cough and + dyspnea on exertion Integumentary: + dry skin Physical Exam Vital Signs (Past 24 Hours): Last Vital Signs Temp 36.7 C 05/27/18 07:28 Pulse 98 H 05/27/18 07:28 Resp 20 05/27/18 07:28 BP 112/62 05/27/18 07:28 Pulse Ox 96 05/27/18 07:28 Constitutional: + ill appearing, + thin and + cachectic Eyes: PERRL, conjunctivae normal, anicteric sclerae ENMT: external ear and nose normal, oropharynx normal Neck: normal visual inspection Thyroid: normal thyroid Respiratory: normal respiratory effort and + cough Auscultation: + diminished lung sounds Cardiovascular: RRR, no murmur, no edema Heart Sounds: normal S1 and normal S2 Gastrointestinal (Abdomen): normal bowel sounds, soft, nontender, no hepatosplenomegaly Percussion/Palpation: abdomen soft Skin: no rashes, warm and dry + turgor decreased Psychiatric: A+Ox3, euthymic affect Affect: euthymic affect Thought Process: goal directed thought process Insight: good insight Judgement: good judgement Time Spent Midlevel Time spent 25 minutes with >50% of time spent at bedside with patient discussing goals and plan of care.
--- NOTE | 2018-05-27 14:50 | Progress Note ---
DATE: 05/27/2018 Ms. Preston was seen today on 05/27/2018. Her PleurX catheter drained about 150 mL. She is going to be drained every other day at home. I discussed this with Dr. Hall. From my standpoint, the patient is going to be discharged when the primary service decides. I was pleased with her x-ray from 2 days ago and I was not as concerned about her reaccumulating the right-sided fluid as it has been relatively stable. At this point, I would allow her to be discharged as she is now on room air. We will follow her up in the office in the next 1-2 weeks with an x-ray and we will coordinate her drainage of her PleurX catheter.
[2018-05-27] MEDS: WARFARIN SOD 2.5 MG TAB PO SCH (16:05)
--- NOTE | 2018-06-03 07:50 | Discharge Summary ---
Date of Service May 27, 2018 Admission HPI Per Admitting Provider 67 y/o F who [facility] having a CXR noted for CHF exacerbation. Pt states that she has not been feeling well for the last 4-5 days. She has had n/v and not been able to take much PO due to this. She has taken a few bites here and there. Because of this she was concerned that she would get dehydrated if she took her lasix, so she has not been taking it the last few days. Pt regularly has SOB "here and there" but it has been worse the last few days, particularly last night. She also noted LE swelling. She called the [facility] to be seen today for IVF and when she got there was noted to be 79% on RA. CXR was done and noted for CHF exacerbation. Pt states she has been trying to use her rescue inhaler at home, but this has not helped her SOB. She states that she feels very congested and has been trying to take liquid mucomyst, but this is not helping with congestion/cough. She has been constipated the last few days. Pt denies fever, chest pain, abd pain, n/v, LE pain. Pt states she is still nauseated but no emesis in the ED. She feels her LE swelling is improved. Principal Diagnosis Acute respiratory hypercapnic and hypoxic failure Discharge Exam Constitutional: + ill appearing and + cachectic; no acute distress ENMT: external ear and nose normal, oropharynx normal Respiratory: Auscultation: improved breath sounds, no rales. Cardiovascular: Rate/Rhythm: regular rate and regular rhythm Heart Sounds: normal S1 and normal S2 Vessels: posterior tibial pulses present and dorsalis pedis pulses present; no JVD Chest (Breasts): Additional Comments: port - clean, dry Gastrointestinal (Abdomen): normal bowel sounds, soft, nontender, no hepatosplenomegaly Percussion/Palpation: abdomen not rigid Musculoskeletal: right foot - scant swelling today (improved); no tenderness to palpation over any of the metatarsals today Psychiatric: A+Ox3, euthymic affect Discharge Data Allergies Allergy/AdvReac Type Severity Reaction Status Date / Time meperidine Allergy Intermediate SWELLING Verified 05/09/18 14:35 acetaminophen Allergy Unknown ? Verified 05/09/18 14:35 atropine Allergy Unknown ? Verified 05/09/18 14:35 bee venom protein (honey bee) Allergy Unknown SWELLING Verified 05/09/18 14:35 cefaclor Allergy Unknown ? Verified 05/09/18 14:35 codeine Allergy Unknown ? Verified 02/22/18 17:41 dextromethorphan Allergy Unknown HALLUCINATI Verified 05/09/18 14:35 ON diphenoxylate Allergy Unknown ? Verified 05/09/18 14:35 doxylamine Allergy Unknown HALLUCINATI Verified 05/09/18 14:35 ON Gold Salts Allergy Unknown RASH Verified 05/09/18 14:35 iodine Allergy Unknown "D/T Verified 05/09/18 14:35 ALLERGY TO SHRIMP" lidocaine Allergy Unknown LETHARGY Verified 05/09/18 14:35 midazolam Allergy Unknown MUSCLE Verified 05/09/18 14:35 SPAMS AND HALLUCINATIONS morphine Allergy Unknown SWELLING Verified 05/09/18 14:35 Penicillins Allergy Unknown ? Verified 05/09/18 14:35 propantheline Allergy Unknown ? Verified 05/09/18 14:35 propoxyphene Allergy Unknown SWELLING Verified 05/09/18 14:35 pseudoephedrine Allergy Unknown HALLUCINATI Verified 05/09/18 14:35 ON shellfish derived Allergy Unknown ? Verified 05/09/18 14:35 shrimp Allergy Unknown THROAT Verified 05/09/18 14:35 SWELLS SHUT succinylcholine Allergy Unknown TOLD NEVER Verified 05/09/18 14:35 TO USE, NEICE SEVERELY ALLERGIC TO MEDS adhesive AdvReac Mild Steri-strip Verified 05/09/18 14:35 - blisters Ethanol Allergy Unknown HALLUCINATI Uncoded 05/09/18 14:35 ON TALWIN Allergy Unknown HIVES AND Uncoded 05/09/18 14:35 CONFUSION WALNUTS Allergy Unknown SWELLING Uncoded 05/09/18 14:35 Consultations 05/09/18 13:42 ED Decision to Admit Stat 05/09/18 16:10 Consult Case Management - Discharge Planning Routine 05/13/18 14:10 Consult Thoracic Surgery Routine 05/13/18 19:53 Consult Oncology Routine 05/15/18 06:40 Consult Palliative Care Routine Hospital Course (1) Acute respiratory failure with hypoxia and hypercapnia: Combination of multiple factors including advancing stage 4 small cell lung ca, asthma/copd, decompensated CHF, pleural effusions, and suspected acute bronchitis (and/or pneumonia). Diuresis led to a considerable contraction alkalosis and no significant change in clinical status early on in her course. Cont prednisone daily for asthma/COPD exacerbation. Currently at 50mg/day. Wean every 2 days or so. Cont levaquin has been completed. s/p left-sided thoracentesis; possible malignant cells from the left-sided tap. Dr. Mcqueen placed left-sided pleurX on 05/23/18. Dr. MCQUEEN did not find neccesary a second pleurx. Off oxygen. Patient ambulating halls off oxygen with no distress. restart coumadin (2) Bilateral pleural effusion: s/p thoracentesis on RIGHT with 1000cc+ yielded. Cytologies negative. Fluid most c/w transudative etiology at that time. s/p left-sided thoracentesis yielding 800cc of fluid. Cytologies possibly +. PleurX placed on Wednesday by Dr. Mcqueen on left. (3) Acute on chronic diastolic (congestive) heart failure: Attempts at diuresis this admission caused a considerable contraction alkalosis. Lasix was held for some time. On 20mg of lasix daily to maintain euvolemia. (4) Primary small cell malignant neoplasm of lung, stage 4: s/p 2 rounds of chemo under the care of Dr. Doshi at the [facility]. She did not tolerate these well. Poor candidate for future chemo. She is considering hospice/palliative care. Dr. Doshi met w/ patient on Wednesday, 05/20 - told her she will not receive further chemo due to poor functional status. Numerous conversations this admission about options for care and palliative care team is involved as well; their efforts appreciated. Home w/ hospice at d/c? Patient currently refusing. Patient wants to be sent home on home health. (5) Severe protein-calorie malnutrition: Ongoing appetite markedly improved with prednisone consider low-dose prednisone at d/c on chronic basis for appetite (6) Hypothyroidism: TSH 2.8 on 02/2018. Cont synthroid as is. (7) Atrial fibrillation: restarted coumadin clinically in NSR on exam today (8) Asthma: probable exacerbation. IMPROVED. cont prednisone 50mg; wean every 2-3 days. cont nebs. (9) CAD (coronary artery disease): troponin negative. no ischemic symptoms. (10) Nausea & vomiting: at time of admission. resolved; has not recurred. (11) DM type 2 (diabetes mellitus, type 2): insulins have been adjusted in the setting of prednisone use continue to monitor (12) Hodgkin lymphoma: history of such now with macrocytosis, leukocytosis, etc development of new bone marrow process? likely not relevant if we elect to go in direction of palliative care (13) Tobacco use disorder: was smoking up until this admission nicoderm patch (14) Gross hematuria: resolved suspect due to steve trauma removed steve ;patient is diuresing. (15) Constipation: finally resolved with milk of mag today cont miralax added senna for bowel maintenance (16) Right foot pain: etiology? does not look like gout or pseudogout x rays neg for fracture overall improved w/ voltaren gel and steroids follow (17) DVT prophylaxis: lovenox 30mg daily added coumadin. social work is assisting. Total Time Total Time Spent Total Time Spent (In Minutes): 31 Total Time Includes: Examination of the Patient, Discharge Planning and Medication Reconciliation Discharge Plan Discharge Items Patient Disposition: Home - Home Health Services Reason For Visit: CHF-CX DONE 05.09.18 RT PLEURAL EFFUSION Discharge Diagnosis: Pleural effusion possibly malignant cells Discharge Goals: Decrease discomfort Activity: Resume your previous activity Non-emergency contact: Primary Care Provider Call non-emergency contact if: you have any medication questions Follow-up/Referrals: Xu Arthur MD [Primary Care Provider] - 06/06/18 2:30 pm (Please, follow up with Dr. Arthur on WednesdayJune 06 at 2:30 pm. *If you need to change this appointment, call the office at [phone].) Diet: Heart Healthy Addtl Provider Instructions: Will discharge you today. You were treated for fluid around your lung. You improved with the pleurx. Will have you follow up with Dr. Mcqueen in 2 weeks. You have the option to transition to hospice if you want. You can buy Over the counter lidocaine patches at the pharmacy and use once daily if needed. Please check INR in about 1 week. yOU WILL BE DISCHARGED ON prednisone taper. Prescriptions: New acetaminophen [Mapap (acetaminophen)] 325 mg Tablet 650 mg PO Q6H PRN (Reason: fever or pain) Qty: 60 RF: 0 diclofenac sodium [Voltaren] 1 % Gel 1 applic EXT QID Qty: 1 RF: 0 prednisone 10 mg tablet 10 mg PO UD Qty: 20 RF: 0 Continued warfarin 5 mg tablet 5 mg PO UD RF: 0 furosemide 40 mg Tablet 20 mg PO UD RF: 0 fluticasone-salmeterol [Advair Diskus] 250-50 mcg/dose Blister With Device 1 inh INHALATION Q12H RF: 0 ranitidine HCl [Zantac] 300 mg Tablet PO HS PRN (Reason: REFLUX) RF: 0 metoprolol succinate 100 mg Tablet Extended Release 24 Hr 100 mg PO QAM RF: 0 omeprazole 40 mg Capsule,Delayed Release(Dr/Ec) 40 mg PO QAM RF: 0 aspirin 81 mg Tablet,Delayed Release (Dr/Ec) 81 mg PO HS RF: 0 potassium chloride [Klor-Con M20] 20 mEq Tablet,Er Particles/Crystals 20 meq PO Q12 RF: 0 magnesium oxide 400 mg (241.3 mg magnesium) Tablet 400 mg PO Q12 RF: 0 baclofen 10 mg Tablet 10 mg PO Q12 PRN (Reason: MUSCLE SPASMS) RF: 0 nitroglycerin [Nitrostat] 0.4 mg Tablet, Sublingual 0.4 mg Sublingual DIRECTED PRN (Reason: Chest Pain) RF: 0 docusate sodium 100 mg Capsule 100 mg PO BID RF: 0 folic acid 1 mg Tablet 2 mg PO DAILY RF: 0 azelastine 137 mcg (0.1 %) Aerosol,G[place]ord 2 spray INTRANASAL Q12H RF: 0 albuterol sulfate [Ventolin HFA] 90 mcg/actuation Hfa Aerosol Inhaler 2 puff Inhalation Q6H PRN (Reason: Shortness Of Breath) RF: 0 fluticasone [Flonase Allergy Relief] 50 mcg/actuation [place]ord,Suspension 1 spray INTRANASAL QAM RF: 0 loratadine 10 mg Tablet 10 mg PO QAM RF: 0 diazepam [Valium] 5 mg Tablet 5 mg PO TID PRN (Reason: Anxiety) RF: 0 levothyroxine 112 mcg Tablet 112 mcg PO QAM RF: 0 cholecalciferol (vitamin D3) [Vitamin D3] 2,000 unit Tablet 2,000 unit PO QAM RF: 0 vitamin B complex [B-Complex] Tablet 1 tab PO QAM RF: 0 tramadol 50 mg tablet 50 - 100 mg PO Q6H Qty: 20 RF: 0 albuterol sulfate 2.5 mg /3 mL (0.083 %) Solution For Nebulization 2.5 mg INHALATION QID PRN (Reason: Shortness Of Breath) RF: 0 dronabinol 5 mg capsule 5 mg PO TID RF: 0 prochlorperazine maleate 10 mg tablet 10 mg PO QID PRN (Reason: Nausea) RF: 0 ondansetron 8 mg tablet,disintegrating 8 mg PO TID PRN (Reason: Nausea And Vomiting) RF: 0 ferrous sulfate 325 mg (65 mg iron) Tablet 325 mg PO TID RF: 0 Discontinued amoxicillin 500 mg Capsule 2,000 mg PO DIRECTED RF: 0 atorvastatin 80 mg Tablet 80 mg PO HS RF: 0 diphenhydramine HCl [Benadryl] 25 mg Capsule 25 mg PO HS PRN (Reason: Sleep) RF: 0 nystatin 100,000 unit/mL Suspension 5 ml PO QID Qty: 140 RF: 0 [id number] [Fiorinal-Codeine #3] [id number] mg Capsule 1 cap PO Q4H PRN (Reason: Headache) RF: 0 Stand-Alone Forms: [facility] Discharge Orders: Discharge Order (Routine); Ordered 05/27/18 Ordered By: Braeden Hall Admission Data Admit Date/Time: 05/09/18 14:20 Attending Provider: Braeden Hall Admit Provider: Lisa Padilla Primary Care Provider: Xu Arthur Other Providers: Lisa Padilla ; Home,Nursing Agency ; Walt Mcqueen ; Baljeet Doshi V ; Rosario Vail ; Braeden Hall Service: Medical Other Interventions: Discharge Summary Assessment (RN) Last Done: 05/27/18 15:37 DC Date/Time DO NOT enter until pt leaves facility: 05/27/18 18:44
== END 2018-05-27 18:44 | disposition home health service (06) | DRG 180 ==
LOC: ED 12:46 → 4E 14:20 → SUATTDRO 14:20 → 4E 14:57

== ENCOUNTER 2018-07-06 00:37 | Inpatient (IN) ==
[2018-07-06] MEDS: SODIUM CHLORIDE 0.9% 1000ML 1,000 ML IV SCH ×3 (01:53→17:54)
[2018-07-06 02:02] LABS: Basophils # (auto) 0.03 K/uL (0-0.2); Basophils % (auto) 0.4 %; Eosinophils # (auto) 0.09 K/uL (0-0.5); Eosinophils % (auto) 1.1 %; Hematocrit (blood only) 33.1 % (37-47); Immature Granulocytes # (auto) 0.03 K/uL (0.00-0.02); Immature Granulocytes % (auto) 0.4 %; Lymphocytes % (auto) 25.2 %; Mean Corpuscular Hgb Conc 33.2 g/dL (32-36); Mean Corpuscular Volume 102.2 fL (80-100); Mean Platelet Volume 10.2 fL (7.4-10.4); Monocytes # (auto) 0.65 K/uL (0.11-0.59); Monocytes % (auto) 7.8 %; Neutrophils # (auto) 5.43 K/uL (1.4-6.5); Neutrophils % (auto) 65.1 %; Platelet Count 294 K/uL (130-400); RDW Coefficient of Variation 15.7 % (11.5-14.5); RDW Standard Deviation 58.6 fL (36.4-46.3); Red Blood Count 3.24 M/uL (4.2-5.4); White Blood Count 8.33 K/uL (4.8-10.8)
[2018-07-06 02:11] LABS: INR 2.2 (0.9-1.1); Prothrombin Time 20.9 Seconds (9.0-12.0)
[2018-07-06 02:19] LABS: Alanine Aminotransferase 19 U/L (12-78); Albumin Level 2.9 gm/dl (3.4-5.0); Aspartate Aminotransferase 21 U/L (15-37); BUN Creatinine Ratio 33.1 (10-20); Blood Urea Nitrogen 13 mg/dl (7-18); Calcium 8.8 mg/dl (8.5-10.1); Carbon Dioxide 32 mmol/L (21-32); Chloride 101 mmol/L (98-107); Creatinine Clr Calc Pharmacy 95.6 ml/min; Est GFR (African American) 123.9; Est GFR (Non-African American) 106.9; Glucose 117 mg/dl (70-99); Magnesium 1.8 mg/dl (1.8-2.4); Sodium 136 mmol/L (136-145)
[2018-07-06 02:24] LABS: Albumin Globulin Ratio 0.6 (0.9-2); Alkaline Phosphatase 95 U/L (45-117); Bilirubin,Total 0.2 mg/dl (0.2-1); Globulin 4.5 gm/dl (2.5-4.0); Total Protein 7.4 gm/dl (6.4-8.2); Troponin I < 0.015 ng/ml (0-0.045)
[2018-07-06] MEDS ORDERED: DiphenhydrAMINE HCL 50 MG/ML VIAL IV STA (02:24)
[2018-07-06] MEDS ORDERED: OPTIRAY 320 125ml IV PRN (02:55)
--- NOTE | 2018-07-06 05:35 | History & Physical Report ---
Date of Service July 06, 2018 Assessment & Plan (1) Hemoptysis: Patient with small amount of hemoptysis, francois blood. She is hemodynamically stable, no airway compromise. Concern for possible infection vs bleeding tumor vs vascular invasion or fistula formation. -Admit to medical floor -CBC BID -Pulmonary consultation - appreciate assistance with this case -Holding ASA, Coumadin in setting of active bleeding -Patient NPO for possible bronchoscopy (2) Primary small cell malignant neoplasm of lung, stage 4: Patient with extensive-stage small cell lung cancer, diagnosed February 2018 s/p 2 cycles of etoposide/cisplatin. Prior to initiation of cycle 3 she was admitted to the hospital for presumed CHF exacerbation. Further chemotherapy treatments were put on hold until patient medically optimized. Patient had a CT of the chest/abdomen and pelvis performed on 06/27/18 which was consistent with progression of disease, progressive bulky mediastinal adenopathy with increased size of the pleural based masses and nodules with mediastinal invasion. Possibility of lymphangitic carcinomatosis as well. No metastatic disease in the abdomen or pelvis. The decision to resume chemotherapy is yet to be determined -symptomatic management, pain and nausea control -Consider Oncology consultation vs outpatient followup (3) Severe protein-calorie malnutrition: Noted. -Encourage PO intake when diet is advanced -Continue Dronabinol for appetite stimulation -Nausea control with Zofran and prochlorperazine Present on Admission?: Yes (4) Hypothyroidism: Chronic. TSH=2.86 on 03/03/18 -Continue Synthroid Present on Admission?: Yes (5) Atrial fibrillation: Patient rate controlled. Adequately anticoagulated on Coumadin -Continue Metoprolol -Hold Coumadin in setting of hemoptysis -Repeat INR in AM (6) Asthma: Presently with adequate saturation on 2L NC. No respiratory distress. No wheeze -Continue Advair -Continue Albuterol PRN Present on Admission?: Yes (7) Constipation: Patient had multiple episodes of diarrhea 5 days ago that has since resolved. -Continue Colace and Miralax PRN (8) CAD (coronary artery disease): Stable. No CP. EKG without evidence of ischemia -Hold ASA in setting of hemoptysis, possible bronchoscopy -Continue Metoprolol Present on Admission?: Yes (9) GERD (gastroesophageal reflux disease): Chronic. well controlled on home medications -Continue Ranitidine and Omeprazole daily (10) COPD (chronic obstructive pulmonary disease): Patient with history of COPD. Presently without respiratory distress or wheeze. Adequate oxygenation on 2L NC -Continue Combivent -Continue Advair -Albuterol PRN Present on Admission?: Yes (11) Tobacco use disorder: Patient continues to smoke appx 1/2 ppd. -Tobacco cessation counseling Present on Admission?: Yes (12) Pleural effusion: Patient had PleurX catheter in the past for non-malignant pleural effusion which was eventually removed. She was admitted in April 2018 with respiratory distress and worsening pleural effusions, R >L. She had bedside US guided thoracentesis performed on 05/13/[address] Steele in which 1350mL of rust colored fluid was drained. Patient had placement of left sided PleurX catheter on 05/23/[address] Steele. She has home nursing q M/W/F that comes for catheter drainage. She reports that the last 4-5 times the fluid was drained it was more bloody than usual. PleurX site is mildly tender with palpation. Patient follows with Dr. Steele outpatient, last seen on . -Wound care for dressing changes and catheter drainage daily -Monitor output F/E/N - Heplock. Monitor electrolytes and replete as needed. Continue home PO Magnesium and iron. NPO for now for possible bronchoscopy in AM. Ppx - SCDs to bilateral LEs. Patient is anticoagulated on Coumadin, INR=2.2. Will hold for now in setting of active bleeding. Code - Full per discussion with patient Dispo - Medical floor History of Present Illness Chief Complaint: hemoptysis Primary Care Provider: Saulo Arthur MD Mrs. Preston is an unfortunate 68yo female with multiple medical problems to include CAD s/p stent, CHF, COPD, atrial tachycardia on Coumadin anticoagulation and metastatic small cell lung cancer. She presents today with hemoptysis and left sided chest pain. Patient reports feeling very tired all day. She has a chronic non-productive cough, began having hemoptysis at appx 21:00 last night. She had 3-4 episodes of bright red blood. Also with left side pain below the site of her PleurX catheter. She denies fevers, chills, sweats. Denies CP/palpitations/weight gain/edema. She has a mild headache and some nausea. Patient mildy hypoxic on arrival to ER, 88% on room air. Improvement with supplemental O2. No additional complaints at this time. ER Course: Benadryl, Solumedrol, NSS Allergies Allergy/AdvReac Type Severity Reaction Status Date / Time meperidine Allergy Intermediate SWELLING Verified 07/06/18 03:55 acetaminophen Allergy Unknown ? Verified 07/06/18 03:55 atropine Allergy Unknown ? Verified 07/06/18 03:55 bee venom protein (honey bee) Allergy Unknown SWELLING Verified 07/06/18 03:55 cefaclor Allergy Unknown ? Verified 07/06/18 03:55 codeine Allergy Unknown ? Verified 07/06/18 03:55 dextromethorphan Allergy Unknown HALLUCINATI Verified 07/06/18 03:55 ON diphenoxylate Allergy Unknown ? Verified 07/06/18 03:55 doxylamine Allergy Unknown HALLUCINATI Verified 07/06/18 03:55 ON Gold Salts Allergy Unknown RASH Verified 07/06/18 03:55 iodine Allergy Unknown "D/T Verified 07/06/18 03:55 ALLERGY TO SHRIMP" lidocaine Allergy Unknown LETHARGY Verified 07/06/18 03:55 midazolam Allergy Unknown MUSCLE Verified 07/06/18 03:55 SPAMS AND HALLUCINATIONS morphine Allergy Unknown SWELLING Verified 07/06/18 03:55 Penicillins Allergy Unknown ? Verified 07/06/18 03:55 propantheline Allergy Unknown ? Verified 07/06/18 03:55 propoxyphene Allergy Unknown SWELLING Verified 07/06/18 03:55 pseudoephedrine Allergy Unknown HALLUCINATI Verified 07/06/18 03:55 ON shellfish derived Allergy Unknown ? Verified 07/06/18 03:55 shrimp Allergy Unknown THROAT Verified 07/06/18 03:55 SWELLS SHUT succinylcholine Allergy Unknown TOLD NEVER Verified 07/06/18 03:55 TO USE, NEICE SEVERELY ALLERGIC TO MEDS adhesive AdvReac Mild Steri-strip Verified 07/06/18 03:55 - blisters Ethanol Allergy Unknown HALLUCINATI Uncoded 07/06/18 03:55 ON TALWIN Allergy Unknown HIVES AND Uncoded 07/06/18 03:55 CONFUSION WALNUTS Allergy Unknown SWELLING Uncoded 07/06/18 03:55 Home Medications Home Medications Medication Instructions Recorded Confirmed Type albuterol sulfate [Ventolin HFA] 2 puff INHALATION QID PRN 12/22/17 07/06/18 History aspirin 81 mg PO HS 12/22/17 07/06/18 History azelastine 2 spray INTRANASAL DAILY 12/22/17 07/06/18 History baclofen 10 mg PO BID 12/22/17 07/06/18 History cholecalciferol (vitamin D3) 2,000 unit PO QAM 12/22/17 07/06/18 History [Vitamin D3] docusate sodium 100 mg PO TID 12/22/17 07/06/18 History fluticasone propion-salmeterol 1 inh INHALATION Q12H 12/22/17 07/06/18 History [Advair Diskus] fluticasone propionate [Flonase 2 spray INTRANASAL QAM 12/22/17 07/06/18 History Allergy Relief] folic acid 2 mg PO DAILY 12/22/17 07/06/18 History levothyroxine 112 mcg PO QAM 12/22/17 07/06/18 History loratadine 10 mg PO QAM 12/22/17 07/06/18 History nitroglycerin [Nitrostat] 0.4 mg SUBLINGUAL DIRECTED PRN 12/22/17 07/06/18 History omeprazole 40 mg PO QAM 12/22/17 07/06/18 History warfarin 5 mg tablet 5 mg PO UD tab 02/07/18 07/06/18 History vitamin B complex [B-Complex] 1 tab PO QAM 02/22/18 07/06/18 History albuterol sulfate 2.5 mg INHALATION QID PRN 05/09/18 07/06/18 History dronabinol 5 mg PO TID 05/09/18 07/06/18 History ferrous sulfate 325 mg PO TID 05/09/18 07/06/18 History prochlorperazine maleate 10 mg PO QID PRN 05/09/18 07/06/18 History diclofenac sodium [Voltaren] 1 applic EXT QID #1 tube 05/27/18 07/06/18 Rx B-complex with vitamin C [Super B 1 tab PO DAILY 07/06/18 07/06/18 History Complex-Vitamin C] acetaminophen [Tylenol Extra 500 mg PO Q4 PRN 07/06/18 07/06/18 History Strength] amoxicillin 2,000 mg PO UD PRN 07/06/18 07/06/18 History rdyiapfyhw-aojfmlzkjm-rkm-cod 1 cap PO Q4 PRN 07/06/18 07/06/18 History diclofenac sodium 4 g TOPICAL BID PRN 07/06/18 07/06/18 History ipratropium-albuterol [Combivent 1 puff INHALATION BID 07/06/18 07/06/18 History Respimat] magnesium 500 mg PO DAILY 07/06/18 07/06/18 History metoprolol succinate 25 mg PO DAILY 07/06/18 07/06/18 History mupirocin 1 applic TOPICAL TID 07/06/18 07/06/18 History nystatin 5 ml BUCCAL QID 07/06/18 07/06/18 History ondansetron HCl 4 mg PO Q4 PRN 07/06/18 07/06/18 History polyethylene glycol 3350 [Miralax] 17 g PO Q OTHER DAY PRN 07/06/18 07/06/18 History ranitidine HCl 75 mg PO BID PRN 07/06/18 07/06/18 History tramadol 50 mg PO Q6H PRN 07/06/18 07/06/18 History zinc gluconate 30 mg PO DAILY 07/06/18 07/06/18 History Past Med/Surg History Medical History Small cell lung cancer Acute myocardial infarction Afib Anxiety Atrial ectopic tachycardia CAD (coronary artery disease) CHF (congestive heart failure) COPD (chronic obstructive pulmonary disease) GERD (gastroesophageal reflux disease) Hx of Hodgkins lymphoma Hyponatremia Hypothyroid Pulmonary hemorrhage Upper GI bleed Surgical History Hx of cholecystectomy Hx of heart artery stent Hx of splenectomy S/P bronchoscopy with biopsy EBUS/harmony bronch on 02/24/2018. 8.0ETT. MAC 3, grade 1 view. Patient reintubated postextubation (while still in operating room) for what appeared to be CO2 retention. Please see record for full details. Family History Sister Heart attack Other Family history non-contributory Social History Preferred Language: Armenian Beliefs That Will Affect Care: Restorationism marital status: Current Living Situation: Spouse current occupational status: retired Feels Safe at Home: Yes Smoking Status: Current every day smoker Hx Alcohol Use: No Hx Substance Use: No Review of Systems All systems reviewed & are unremarkable except as noted in HPI & below Physical Exam Vital Signs (Past 24 Hours): Last Vital Signs Temp 36.7 C 07/06/18 00:41 Pulse 97 H 07/06/18 04:07 Resp 16 07/06/18 04:07 BP 115/64 07/06/18 03:33 Pulse Ox 99 07/06/18 04:07 Physical Exam: General: patient resting comfortably, NAD, frail and cachectic in appearance, AA&O x 4 Skin: warm, dry, intact, no rashes or lesions HEENT: NC/AT, PERRL, EOMI, anicteric sclera, conjunctiva without injection, external ear normal to inspection and nontender, nares patent, moist mucus membranes, no oropharyngeal lesions, neck supple, trachea midline, no LAD, no thyromegaly, no JVD Heart: +S1/S2, regular, 3/6 DAVID Lungs: equal air entry bilaterally, no rales/rhonchi/wheezes, diminished in bilateral bases, pleurX catheter in place on left, serosanguinous drainage in bag, dressing intact, tenderness with palpation of flank and around catheter site, tissue with bloody sputum at bedside Abd: +BS, soft, NT/ND, no masses/organomegaly/ascites Ext: warm, 2+ pulses in UE/LE bilaterally, no clubbing/cyanosis or edema Neuro: nonfocal, patient AA&O x 4, speech intact, no facial droop, moving all extremities on command with equal strength 5/5 Results & Data Laboratory Results Lab Results 07/06/18 07/06/18 07/06/18 Range/Units 01:34 01:34 01:45 WBC 8.33 (4.8-10.8) K/uL RBC 3.24 L (4.2-5.4) M/uL Hgb 11.0 L (12.0-16.0) g/dL Hct 33.1 L (37-47) % MCV 102.2 H (80-100) fL MCH 34.0 (25-34) pg MCHC 33.2 (32-36) g/dL RDW Std Deviation 58.6 H (36.4-46.3) fL RDW Coeff of [place] 15.7 H (11.5-14.5) % Plt Count 294 (130-400) K/uL MPV 10.2 (7.4-10.4) fL Immature Gran % (Auto) 0.4 % Neut % (Auto) 65.1 % Lymph % (Auto) 25.2 % [place] % (Auto) 7.8 % Eos % (Auto) 1.1 % Baso % (Auto) 0.4 % Immature Gran # (Auto) 0.03 H (0.00-0.02) K/uL Neut # (Auto) 5.43 (1.4-6.5) K/uL Lymph # (Auto) 2.10 (1.2-3.4) K/uL [place] # (Auto) 0.65 H (0.11-0.59) K/uL Eos # (Auto) 0.09 (0-0.5) K/uL Baso # (Auto) 0.03 (0-0.2) K/uL PT 20.9 H (9.0-12.0) Seconds INR 2.2 H (0.9-1.1) Sodium 136 (136-145) mmol/L Potassium 4.0 (3.5-5.1) mmol/L Chloride 101 (98-107) mmol/L Carbon Dioxide 32 (21-32) mmol/L Anion Gap 3.0 (3-11) BUN 13 (7-18) mg/dl Creatinine 0.41 L (0.6-1.2) mg/dl Est Cr Clr Drug Dosing 95.6 ml/min Est GFR ( Amer) 123.9 Est GFR (Non-Af Amer) 106.9 BUN/Creatinine Ratio 33.1 H (10-20) Glucose 117 H (70-99) mg/dl POC Lactic Acid Nicolás (0.90-1.70) mmol/L Calcium 8.8 (8.5-10.1) mg/dl Magnesium 1.8 (1.8-2.4) mg/dl Total Bilirubin 0.2 (0.2-1) mg/dl AST 21 (15-37) U/L ALT 19 (12-78) U/L Alkaline Phosphatase 95 (45-117) U/L Troponin I < 0.015 (0-0.045) ng/ml Total Protein 7.4 (6.4-8.2) gm/dl Albumin 2.9 L (3.4-5.0) gm/dl Globulin 4.5 H (2.5-4.0) gm/dl Albumin/Globulin Ratio 0.6 L (0.9-2) Lipase 94 (73-393) U/L 07/06/18 Range/Units 01:51 WBC (4.8-10.8) K/uL RBC (4.2-5.4) M/uL Hgb (12.0-16.0) g/dL Hct (37-47) % MCV (80-100) fL MCH (25-34) pg MCHC (32-36) g/dL RDW Std Deviation (36.4-46.3) fL RDW Coeff of [place] (11.5-14.5) % Plt Count (130-400) K/uL MPV (7.4-10.4) fL Immature Gran % (Auto) % Neut % (Auto) % Lymph % (Auto) % [place] % (Auto) % Eos % (Auto) % Baso % (Auto) % Immature Gran # (Auto) (0.00-0.02) K/uL Neut # (Auto) (1.4-6.5) K/uL Lymph # (Auto) (1.2-3.4) K/uL [place] # (Auto) (0.11-0.59) K/uL Eos # (Auto) (0-0.5) K/uL Baso # (Auto) (0-0.2) K/uL PT (9.0-12.0) Seconds INR (0.9-1.1) Sodium (136-145) mmol/L Potassium (3.5-5.1) mmol/L Chloride (98-107) mmol/L Carbon Dioxide (21-32) mmol/L Anion Gap (3-11) BUN (7-18) mg/dl Creatinine (0.6-1.2) mg/dl Est Cr Clr Drug Dosing ml/min Est GFR ( Amer) Est GFR (Non-Af Amer) BUN/Creatinine Ratio (10-20) Glucose (70-99) mg/dl POC Lactic Acid Nicolás 0.84 L (0.90-1.70) mmol/L Calcium (8.5-10.1) mg/dl Magnesium (1.8-2.4) mg/dl Total Bilirubin (0.2-1) mg/dl AST (15-37) U/L ALT (12-78) U/L Alkaline Phosphatase (45-117) U/L Troponin I (0-0.045) ng/ml Total Protein (6.4-8.2) gm/dl Albumin (3.4-5.0) gm/dl Globulin (2.5-4.0) gm/dl Albumin/Globulin Ratio (0.9-2) Lipase (73-393) U/L Diagnostic Findings CT Chest with contrast - tunneled pleural drainage identified in the elft hemithorax which extendes superiorly in the major fissure. Left pleural effusion less prominent than 04/22/16. Patchy opacities in the medial lung apices and anterior RUL presumed related to radiation therapy in these regions. Subsegmental changes at the lung bases presumed atelectasis or basilar scarring. Nodular densities in the lateral aspect of the superior segment of the right lower lobe may represent scarring and are similar to prior. no endobronchial filling defect to suggest exact location of hemoptysis. Obliteration of the subsegmental branches serving the anterior aspect of the left anterior upper lobe from the mass. Abnormal suprahilar soft tissue mass extending inferiorly along the lateral aspect of the aortic arch and to the anterior mediastinum with potential involvment of the superior lateral pericardium. Soft tissue component measures 2.5 x 2.2 cm superiorly. ECG Additional Comments: NSR at 92, LBBB old from prior study, no acute ischemic changes Code Status & VTE Plan Code Status full VTE Prophylaxis Plan VTE Prophylaxis will be ordered: Yes Critical Care Time Critical Care Time: No (1) CAD (coronary artery disease) Associated angina: without angina Coronary Disease-Associated Artery/Lesion type: [place] artery [place] vs. transplanted heart: [place] heart Qualified Code(s): I25.10 - Atherosclerotic heart disease of [place] coronary artery without angina pectoris (2) Atrial fibrillation Atrial fibrillation type: chronic Qualified Code(s): I48.2 - Chronic atrial fibrillation (3) Hypothyroidism Hypothyroidism type: acquired Qualified Code(s): E03.9 - Hypothyroidism, unspecified (4) COPD (chronic obstructive pulmonary disease) COPD type: unspecified COPD Qualified Code(s): J44.9 - Chronic obstructive pulmonary disease, unspecified (5) GERD (gastroesophageal reflux disease) Esophagitis presence: esophagitis presence not specified Qualified Code(s): K21.9 - Gastro-esophageal reflux disease without esophagitis (6) Constipation Constipation type: other constipation type Qualified Code(s): K59.09 - Other constipation (7) Asthma Asthma complication type: uncomplicated Asthma persistence: persistent Asthma severity: moderate Qualified Code(s): J45.40 - Moderate persistent asthma, uncomplicated
--- NOTE | 2018-07-06 06:41 | Emergency Department Note ---
Entered by Evan Camacho acting as a scribe for History of Present Illness General Chief complaint: Cough Stated complaint: COUGHING UP BLOOD,PAIN LEFT SIDE Time Seen by Provider: 07/06/18 00:55 Source: patient History of Present Illness Onset (ago): week(s) 1 Location: chest Pain Consistency: + other (worsening) Maximum Pain Intensity: 3 Quality: + other (cough) Associated symptoms: + denies other symptoms (trouble with her platelets, fevers, blood in her stool, and having a bloody nose.) and + other (catheter draining dark red color, fatigue, diminished appetite) The patient is a 68 year old female who presents to the Emergency Room with complaints of a worsening cough beginning a week ago. The patient states her c ough started out as non-productive and became productive on Wednesday. She reports she started coughing up a thick yellowish phlegm which turned to small amounts of blood today. The patient notes she has a history of 5 titanium screws in her right lung and a PlureX catheter in her left lung. Patient with a history of lung cancer. She states she has the catheter drained MWF. The patient reports she has a history of coughing up blood before, and it has also been much worse. She notes over the past four or five days, her catheter has been draining a dark red color. The patient reports they thought her right lung was the cause of blood in her phlegm in 2008, so she had the screws placed. The patient states she was also more fatigue today than normal. She reports she typically takes 2.5 of Warfarin but did not take it today. The patient notes her INR is kept between 2 and 3. She states she received two infusions in March and April for her metastatic cancer. The patient reports she did not receive treatment afterwards because she felt sick. She notes she was then hospitalized for three weeks in the middle of April for CHF. The patient states she has been doing well since until her cough. She reports her cancer history started in the 1980s with Hodgkin's Lymphoma. The patient notes she has a diminished appetite, had her first BM today in a few days, and she is always cold. She states she was recently on Prednisone for her shoulder the past month and was very nauseous. The patient denies trouble with her platelets, fevers, blood in her stool, and having a bloody nose. Home Medications Home Medications Medication Instructions Recorded Confirmed Type albuterol sulfate [Ventolin HFA] 2 puff INHALATION QID PRN 12/22/17 07/06/18 History aspirin 81 mg PO HS 12/22/17 07/06/18 History azelastine 2 spray INTRANASAL DAILY 12/22/17 07/06/18 History baclofen 10 mg PO BID 12/22/17 07/06/18 History cholecalciferol (vitamin D3) 2,000 unit PO QAM 12/22/17 07/06/18 History [Vitamin D3] docusate sodium 100 mg PO TID 12/22/17 07/06/18 History fluticasone propion-salmeterol 1 inh INHALATION Q12H 12/22/17 07/06/18 History [Advair Diskus] fluticasone propionate [Flonase 2 spray INTRANASAL QAM 12/22/17 07/06/18 History Allergy Relief] folic acid 2 mg PO DAILY 12/22/17 07/06/18 History levothyroxine 112 mcg PO QAM 12/22/17 07/06/18 History loratadine 10 mg PO QAM 12/22/17 07/06/18 History nitroglycerin [Nitrostat] 0.4 mg SUBLINGUAL DIRECTED PRN 12/22/17 07/06/18 History omeprazole 40 mg PO QAM 12/22/17 07/06/18 History warfarin 5 mg tablet 5 mg PO UD tab 02/07/18 07/06/18 History vitamin B complex [B-Complex] 1 tab PO QAM 02/22/18 07/06/18 History albuterol sulfate 2.5 mg INHALATION QID PRN 05/09/18 07/06/18 History dronabinol 5 mg PO TID 05/09/18 07/06/18 History ferrous sulfate 325 mg PO TID 05/09/18 07/06/18 History prochlorperazine maleate 10 mg PO QID PRN 05/09/18 07/06/18 History diclofenac sodium [Voltaren] 1 applic EXT QID #1 tube 05/27/18 07/06/18 Rx B-complex with vitamin C [Super B 1 tab PO DAILY 07/06/18 07/06/18 History Complex-Vitamin C] acetaminophen [Tylenol Extra 500 mg PO Q4 PRN 07/06/18 07/06/18 History Strength] amoxicillin 2,000 mg PO UD PRN 07/06/18 07/06/18 History crhxotjrqp-qmibrtzdot-csk-cod 1 cap PO Q4 PRN 07/06/18 07/06/18 History diclofenac sodium 4 g TOPICAL BID PRN 07/06/18 07/06/18 History ipratropium-albuterol [Combivent 1 puff INHALATION BID 07/06/18 07/06/18 History Respimat] magnesium 500 mg PO DAILY 07/06/18 07/06/18 History metoprolol succinate 25 mg PO DAILY 07/06/18 07/06/18 History mupirocin 1 applic TOPICAL TID 07/06/18 07/06/18 History nystatin 5 ml BUCCAL QID 07/06/18 07/06/18 History ondansetron HCl 4 mg PO Q4 PRN 07/06/18 07/06/18 History polyethylene glycol 3350 [Miralax] 17 g PO Q OTHER DAY PRN 07/06/18 07/06/18 History ranitidine HCl 75 mg PO BID PRN 07/06/18 07/06/18 History tramadol 50 mg PO Q6H PRN 07/06/18 07/06/18 History zinc gluconate 30 mg PO DAILY 07/06/18 07/06/18 History Allergies Allergy/AdvReac Type Severity Reaction Status Date / Time meperidine Allergy Intermediate SWELLING Verified 07/06/18 03:55 acetaminophen Allergy Unknown ? Verified 07/06/18 03:55 atropine Allergy Unknown ? Verified 07/06/18 03:55 bee venom protein (honey bee) Allergy Unknown SWELLING Verified 07/06/18 03:55 cefaclor Allergy Unknown ? Verified 07/06/18 03:55 codeine Allergy Unknown ? Verified 07/06/18 03:55 dextromethorphan Allergy Unknown HALLUCINATI Verified 07/06/18 03:55 ON diphenoxylate Allergy Unknown ? Verified 07/06/18 03:55 doxylamine Allergy Unknown HALLUCINATI Verified 07/06/18 03:55 ON Gold Salts Allergy Unknown RASH Verified 07/06/18 03:55 iodine Allergy Unknown "D/T Verified 07/06/18 03:55 ALLERGY TO SHRIMP" lidocaine Allergy Unknown LETHARGY Verified 07/06/18 03:55 midazolam Allergy Unknown MUSCLE Verified 07/06/18 03:55 SPAMS AND HALLUCINATIONS morphine Allergy Unknown SWELLING Verified 07/06/18 03:55 Penicillins Allergy Unknown ? Verified 07/06/18 03:55 propantheline Allergy Unknown ? Verified 07/06/18 03:55 propoxyphene Allergy Unknown SWELLING Verified 07/06/18 03:55 pseudoephedrine Allergy Unknown HALLUCINATI Verified 07/06/18 03:55 ON shellfish derived Allergy Unknown ? Verified 07/06/18 03:55 shrimp Allergy Unknown THROAT Verified 07/06/18 03:55 SWELLS SHUT succinylcholine Allergy Unknown TOLD NEVER Verified 07/06/18 03:55 TO USE, NEICE SEVERELY ALLERGIC TO MEDS adhesive AdvReac Mild Steri-strip Verified 07/06/18 03:55 - blisters Ethanol Allergy Unknown HALLUCINATI Uncoded 07/06/18 03:55 ON TALWIN Allergy Unknown HIVES AND Uncoded 07/06/18 03:55 CONFUSION WALNUTS Allergy Unknown SWELLING Uncoded 07/06/18 03:55 Past Med/Surg History Medical History Small cell lung cancer Acute myocardial infarction Afib Anxiety Atrial ectopic tachycardia CAD (coronary artery disease) CHF (congestive heart failure) COPD (chronic obstructive pulmonary disease) GERD (gastroesophageal reflux disease) Hx of Hodgkins lymphoma Hyponatremia Hypothyroid Pulmonary hemorrhage Upper GI bleed Surgical History Hx of cholecystectomy Hx of heart artery stent Hx of splenectomy S/P bronchoscopy with biopsy EBUS/harmony bronch on 02/24/2018. 8.0ETT. MAC 3, grade 1 view. Patient reintubated postextubation (while still in operating room) for what appeared to be CO2 retention. Please see record for full details. Family History Sister Heart attack Other Family history non-contributory Social History Preferred Language: Bermudian Beliefs That Will Affect Care: Mormonism marital status: Current Living Situation: Spouse current occupational status: retired Feels Safe at Home: Yes Smoking Status: Current every day smoker Hx Alcohol Use: No Hx Substance Use: No Review of Systems See HPI for pertinent positives & negatives. and A total of 10 systems reviewed and were otherwise negative Physical Exam Vital Signs Vital Signs - 24 hr 07/06/18 00:41 07/06/18 03:00 07/06/18 03:33 Temperature 36.7 C Temperature Source Oral Sepsis Recent Fever Within 48 Hours No Sepsis Action Taken by Nursing No Action Required Pulse Rate 104 H Pulse Rate [Right Finger] 98 H 87 Pulse Rhythm [Right Finger] Regular Regular Respiratory Rate 20 14 14 Respiratory Effort / Characteristics Non-Labored Spontaneous Non-Labored Spontaneous Respiratory Depth Normal Normal Normal Respiratory Pattern Regular Blood Pressure 118/61 Blood Pressure [Right Arm] 115/64 115/64 Blood Pressure Mean 80 Blood Pressure Mean [Right Arm] 81 81 Pulse Oximetry 95 93 88 L Oxygen Delivery Method Room Air Room Air Room Air Oxygen Flow Rate 07/06/18 04:07 07/06/18 05:22 07/06/18 06:06 Temperature Temperature Source Sepsis Recent Fever Within 48 Hours Sepsis Action Taken by Nursing Pulse Rate Pulse Rate [Right Finger] 97 H 87 87 Pulse Rhythm [Right Finger] Regular Respiratory Rate 16 16 16 Respiratory Effort / Characteristics Non-Labored Spontaneous Non-Labored Respiratory Depth Normal Normal Normal Respiratory Pattern Regular Blood Pressure Blood Pressure [Right Arm] 121/60 117/58 L Blood Pressure Mean Blood Pressure Mean [Right Arm] 80 77 Pulse Oximetry 99 98 96 Oxygen Delivery Method Nasal Cannula Nasal Cannula Nasal Cannula Oxygen Flow Rate 2 2 GENERAL: alert, ill appearing, alopecia, EYE EXAM: normal conjunctiva, PERRL and EOM's grossly intact OROPHARYNX: no exudate, no erythema, lips, buccal mucosa, and tongue normal and mucous membranes are moist NECK: supple, no nuchal rigidity, no adenopathy, non-tender CHEST: Port noted on the left anterior superior chest wall. PlureX catheter in the left lateral chest wall - scant blood noted in catheter tubing. LUNGS: Diminished breath sounds bilaterally. Normal chest wall mechanics HEART: no murmurs, S1 normal and S2 normal ABDOMEN: abdomen soft, non-tender, normo-active bowel sounds, no masses, no rebound or guarding. BACK: Back is symmetrical on inspection and there is no deformity, no midline tenderness, no CVA tenderness. SKIN: no rashes and no bruising UPPER EXTREMITIES: upper extremities are grossly normal. FROM, nml pulses b/l. LOWER EXTREMITIES: No pitting edema. FROM, nml pulses b/l. NEURO EXAM: Normal sensorium, cranial nerves II-XII grossly intact, normal speech, no gross weakness of arms, no gross weakness of legs. Course 0111: The patient was evaluated in room B12B, and a complete history and physical examination were performed. 0354: I reevaluated the patient and discussed the findings with her. She verbalized agreement to a hospitalist evaluation and the treatment plan. The patient will be evaluated for further management and care. 0358: I reviewed the patient's case with Dr. Loyd, [facility] Hospitalist. She will evaluate the patient for further management. Administered Medications Sodium Chloride (Nss 1000ml) 1,000 mls @ 200 mls/hr IV .Q5H SAPNA Stop: 08/05/18 01:29 Last Admin: 07/06/18 01:53 Dose: 200 mls/hr Documented by: [id number] Ioversol (Optiray 320 125ml) 125 ml IV ONCE PRN PRN Reason: Interaction Checking Stop: 07/10/18 02:54 Last Admin: 07/06/18 02:56 Dose: 119 ml Documented by: [id number] Discontinued Medications Diphenhydramine HCl (Benadryl) 12.5 mg IV NOW STA Stop: 07/06/18 02:25 Last Admin: 07/06/18 02:31 Dose: 12.5 mg Documented by: [id number] Methylprednisolone (Solumedrol) 40 mg IV NOW STA Stop: 07/06/18 02:25 Last Admin: 07/06/18 02:31 Dose: 40 mg Documented by: [id number] Medical Decision Making Differential Diagnosis Differential diagnoses includes but is not limited to pneumonia, bronchitis, COPD/Asthma exacerbation, pneumothorax, pulmonary embolism, congestive heart failure, acute coronary syndrome Medical Records Attestation: I reviewed the patient's medical records. Home Medications Current Medication List: was personally reviewed by me Laboratory Data Attestation: I reviewed the patient's lab results. Result diagrams: 07/06/18 01:34 07/06/18 01:45 Lab Results 07/06/18 07/06/18 07/06/18 Range/Units 01:34 01:34 01:45 WBC 8.33 (4.8-10.8) K/uL RBC 3.24 L (4.2-5.4) M/uL Hgb 11.0 L (12.0-16.0) g/dL Hct 33.1 L (37-47) % MCV 102.2 H (80-100) fL MCH 34.0 (25-34) pg MCHC 33.2 (32-36) g/dL RDW Std Deviation 58.6 H (36.4-46.3) fL RDW Coeff of Franklin 15.7 H (11.5-14.5) % Plt Count 294 (130-400) K/uL MPV 10.2 (7.4-10.4) fL Immature Gran % (Auto) 0.4 % Neut % (Auto) 65.1 % Lymph % (Auto) 25.2 % Rolette % (Auto) 7.8 % Eos % (Auto) 1.1 % Baso % (Auto) 0.4 % Immature Gran # (Auto) 0.03 H (0.00-0.02) K/uL Neut # (Auto) 5.43 (1.4-6.5) K/uL Lymph # (Auto) 2.10 (1.2-3.4) K/uL Rolette # (Auto) 0.65 H (0.11-0.59) K/uL Eos # (Auto) 0.09 (0-0.5) K/uL Baso # (Auto) 0.03 (0-0.2) K/uL PT 20.9 H (9.0-12.0) Seconds INR 2.2 H (0.9-1.1) Sodium 136 (136-145) mmol/L Potassium 4.0 (3.5-5.1) mmol/L Chloride 101 (98-107) mmol/L Carbon Dioxide 32 (21-32) mmol/L Anion Gap 3.0 (3-11) BUN 13 (7-18) mg/dl Creatinine 0.41 L (0.6-1.2) mg/dl Est Cr Clr Drug Dosing 95.6 ml/min Est GFR ( Amer) 123.9 Est GFR (Non-Af Amer) 106.9 BUN/Creatinine Ratio 33.1 H (10-20) Glucose 117 H (70-99) mg/dl POC Lactic Acid Nicolás (0.90-1.70) mmol/L Calcium 8.8 (8.5-10.1) mg/dl Magnesium 1.8 (1.8-2.4) mg/dl Total Bilirubin 0.2 (0.2-1) mg/dl AST 21 (15-37) U/L ALT 19 (12-78) U/L Alkaline Phosphatase 95 (45-117) U/L Troponin I < 0.015 (0-0.045) ng/ml Total Protein 7.4 (6.4-8.2) gm/dl Albumin 2.9 L (3.4-5.0) gm/dl Globulin 4.5 H (2.5-4.0) gm/dl Albumin/Globulin Ratio 0.6 L (0.9-2) Lipase 94 (73-393) U/L 07/06/18 Range/Units 01:51 WBC (4.8-10.8) K/uL RBC (4.2-5.4) M/uL Hgb (12.0-16.0) g/dL Hct (37-47) % MCV (80-100) fL MCH (25-34) pg MCHC (32-36) g/dL RDW Std Deviation (36.4-46.3) fL RDW Coeff of Franklin (11.5-14.5) % Plt Count (130-400) K/uL MPV (7.4-10.4) fL Immature Gran % (Auto) % Neut % (Auto) % Lymph % (Auto) % Rolette % (Auto) % Eos % (Auto) % Baso % (Auto) % Immature Gran # (Auto) (0.00-0.02) K/uL Neut # (Auto) (1.4-6.5) K/uL Lymph # (Auto) (1.2-3.4) K/uL Rolette # (Auto) (0.11-0.59) K/uL Eos # (Auto) (0-0.5) K/uL Baso # (Auto) (0-0.2) K/uL PT (9.0-12.0) Seconds INR (0.9-1.1) Sodium (136-145) mmol/L Potassium (3.5-5.1) mmol/L Chloride (98-107) mmol/L Carbon Dioxide (21-32) mmol/L Anion Gap (3-11) BUN (7-18) mg/dl Creatinine (0.6-1.2) mg/dl Est Cr Clr Drug Dosing ml/min Est GFR ( Amer) Est GFR (Non-Af Amer) BUN/Creatinine Ratio (10-20) Glucose (70-99) mg/dl POC Lactic Acid Nicolás 0.84 L (0.90-1.70) mmol/L Calcium (8.5-10.1) mg/dl Magnesium (1.8-2.4) mg/dl Total Bilirubin (0.2-1) mg/dl AST (15-37) U/L ALT (12-78) U/L Alkaline Phosphatase (45-117) U/L Troponin I (0-0.045) ng/ml Total Protein (6.4-8.2) gm/dl Albumin (3.4-5.0) gm/dl Globulin (2.5-4.0) gm/dl Albumin/Globulin Ratio (0.9-2) Lipase (73-393) U/L Imaging Data Radiologist's Impression: Radiology results as stated below per my review and the [facility] radiologist's interpretation: CT CHEST With Contrast: There is a tunneled pleural drainage identified in the left hemithoraxwhich extends superiorlyin the major fissure. The left pleural effusion is less prominent fromexamination dated 04/22/2016 measuring only13 mmposteriorlylaterally. Patchyopacities in the medial lung apices and anterior right upper lobe are presumed related to radiation therapyin these regions. Please correlate clinically. Subsegmental changes at the lung bases are presumed atelectasis or basilar scarring. Nodular densities in the lateral aspect of the superior segment of the right lower lobe mayrepresent scarring and are similar to previous examination. No endobronchial filling defect to suggest the exact location of the reported hemoptysis is identified. There is obliteration of the subsegmental branches serving the anterior aspect of the left anterior upper lobe fromthe mass however. Abnormal suprahilar soft tissue mass extending inferiorlyalong the lateral aspect of the aortic arch and to the anterior mediastinumwith potential involvement of the superior lateral pericardium. Soft tissue component measures up to 2.5 x 2.2 cmsuperiorly. Primaryconsideration is neoplastic process in this region. No other appreciable mediastinal adenopathy. Mediastinumdemonstrates slightly increased densityconsistent with treatment changes The thoracic aorta is normal in caliber with episodic changes. The cardiac chambers are within normal limits. Postsurgical changes in the left upper quadrant consistent with splenectomy. Pneumobilia is incidentally noted in the common bile duct and atrophic left lobe of the liver. No definite acute osseous abnormality. Left subclavian portacatheter extends into the superior vena cava. Postsurgical changes consistent with prior CABG. Radiologist: Ish Wick MD Study ready at 03:01 and initial results transmitted at 03:19 ECG Data Attestation: I personally reviewed and interpreted this ECG as follows: Indication: SOB/dyspnea Rate (beats per minute): 92 Rhythm: sinus rhythm Findings: + other (Normal axis.), + 1st degree AV block and + LBBB; no ST depression, no ST elevation and no acute ischemic change Comparison ECG Date: from (05/09/2018) Change: no significant change Blood Pressure Blood Pressure Findings: Normal blood pressure Blood Pressure Disposition: did not require urgent referral MDM Narrative Patient here ill-appearing with significant past medical history including metastatic lung cancer with recurrent malignant effusions. She presented here with persistent hemoptysis this evening, which did persist while she was in the emergency room. Patient is anticoagulated due to history of A. fib and her INR tonight was 2.2. Patient with no increased work of breathing or retractions, however was found to be mildly hypoxic at 88% and was started on oxygen via n armond cannula. Patient does not routinely wear home oxygen. Patient sent for CT imaging which did not reveal the source of the hemoptysis, however given her known malignancy it is possible that she had tumor erosion into a blood vessel which led to bleeding which is more pronounced due to her use of anticoagulation. I do not suspect PE given that her INR is therapeutic. No evidence of bacteremia/sepsis. Despite evolving cough and sputum over the last several days, patient afebrile and no leukocytosis noted. At this time I do not suspect occult infection including pneumonia. Patient was made aware of all results and my concerns regarding her current condition and was in agreement with plan for additional evaluation by the hospitalist. Case discussed with Dr. Loyd of [facility] hospitalist group. Impression & Plan Hemoptysis, Hypoxia, Pleural effusion, Bilateral lung cancer Discharge Plan Visit Data Chief Complaint: Cough Stated Complaint: COUGHING UP BLOOD,PAIN LEFT SIDE ED Provider: Hilary Barron Discharge Problem: Hemoptysis, Hypoxia, Pleural effusion, Bilateral lung cancer Patient Disposition: Being Evaluated by Hospitalist Discharge Instructions Interventions: ED Discharge Assessment Last Done: 07/06/18 06:09 Forms Stand Alone Forms: [facility] Prescriptions Prescriptions: No Action warfarin 5 mg tablet 5 mg PO UD RF: 0 fluticasone propion-salmeterol [Advair Diskus] 250-50 mcg/dose Blister With Device 1 inh INHALATION Q12H RF: 0 omeprazole 40 mg Capsule,Delayed Release(Dr/Ec) 40 mg PO QAM RF: 0 aspirin 81 mg Tablet,Delayed Release (Dr/Ec) 81 mg PO HS RF: 0 baclofen 10 mg Tablet 10 mg PO BID RF: 0 nitroglycerin [Nitrostat] 0.4 mg Tablet, Sublingual 0.4 mg Sublingual DIRECTED PRN (Reason: Chest Pain) RF: 0 docusate sodium 100 mg Capsule 100 mg PO TID RF: 0 folic acid 1 mg Tablet 2 mg PO DAILY RF: 0 azelastine 137 mcg (0.1 %) Aerosol,Kaiser 2 spray INTRANASAL DAILY RF: 0 albuterol sulfate [Ventolin HFA] 90 mcg/actuation Hfa Aerosol Inhaler 2 puff Inhalation QID PRN (Reason: Shortness Of Breath) RF: 0 fluticasone propionate [Flonase Allergy Relief] 50 mcg/actuation Kaiser,Suspension 2 spray INTRANASAL QAM RF: 0 loratadine 10 mg Tablet 10 mg PO QAM RF: 0 levothyroxine 112 mcg Tablet 112 mcg PO QAM RF: 0 cholecalciferol (vitamin D3) [Vitamin D3] 2,000 unit Tablet 2,000 unit PO QAM RF: 0 vitamin B complex [B-Complex] Tablet 1 tab PO QAM RF: 0 albuterol sulfate 2.5 mg /3 mL (0.083 %) Solution For Nebulization 2.5 mg INHALATION QID PRN (Reason: cough/wheezing) RF: 0 dronabinol 5 mg capsule 5 mg PO TID RF: 0 prochlorperazine maleate 10 mg tablet 10 mg PO QID PRN (Reason: Nausea) RF: 0 ferrous sulfate 325 mg (65 mg iron) Tablet 325 mg PO TID RF: 0 diclofenac sodium [Voltaren] 1 % Gel 1 applic EXT QID Qty: 1 RF: 0 tramadol 50 mg tablet 50 mg PO Q6H PRN (Reason: Pain) RF: 0 zinc gluconate 30 mg Tablet 30 mg PO DAILY RF: 0 Combivent Respimat 20-100 mcg/actuation Mist 1 puff INHALATION BID RF: 0 ondansetron HCl 4 mg Tablet 4 mg PO Q4 PRN (Reason: Nausea) RF: 0 acetaminophen [Tylenol Extra Strength] 500 mg Tablet 500 mg PO Q4 PRN (Reason: Unknown) RF: 0 metoprolol succinate 25 mg Tablet Extended Release 24 Hr 25 mg PO DAILY RF: 0 polyethylene glycol 3350 [Miralax] 17 gram/dose Powder 17 g PO Q OTHER DAY PRN (Reason: Constipation) RF: 0 B-complex with vitamin C [Super B Complex-Vitamin C] Tablet 1 tab PO DAILY RF: 0 ranitidine HCl 75 mg Tablet 75 mg PO BID PRN (Reason: Heartburn) RF: 0 magnesium 250 mg Tablet 500 mg PO DAILY RF: 0 amoxicillin 500 mg Capsule 2,000 mg PO UD PRN (Reason: Prophylaxis) RF: 0 nystatin 100,000 unit/mL Suspension 5 ml BUCCAL QID RF: 0 incinjabmz-ljzxrbhdmt-mlw-cod [id number] mg Capsule 1 cap PO Q4 PRN (Reason: Unknown) RF: 0 mupirocin 2 % Ointment 1 applic TOPICAL TID RF: 0 diclofenac sodium 1 % gel 4 g topical BID PRN (Reason: affected area) RF: 0 Referrals Referrals: Xu Arthur MD [Primary Care Provider] - The scribe's documentation has been prepared under my direction and personally reviewed by me in its entirety. I confirm that the note above accurately reflects all work, treatment, procedures, and medical decision making performed by me.
[2018-07-06] MEDS ORDERED: ONDANSETRON 4 MG TAB PO PRN (06:47)
[2018-07-06] MEDS ORDERED: POLYETHYLENE (MIRALAX) 17 GM PACK PO PRN (06:47)
[2018-07-06] MEDS ORDERED: TRAMADOL HCL 50 MG TABLET PO PRN (06:47)
[2018-07-06] MEDS ORDERED: DICLOFENAC SOD 1% GEL 100 GM TUBE EXT PRN (06:47)
[2018-07-06] MEDS ORDERED: ALBUTEROL 0.083% NEBU SOLN 3 ML VIAL INH PRN (06:47)
[2018-07-06] MEDS ORDERED: HEPARIN 100 UNIT/ML 5ML FLUSH FLUSH STA (07:12)
[2018-07-06 07:28] LABS: Basophils # (auto) 0.02 K/uL (0-0.2); Basophils % (auto) 0.2 %; Hematocrit (blood only) 37.3 % (37-47); Hemoglobin 12.6 g/dL (12.0-16.0); Immature Granulocytes # (auto) 0.03 K/uL (0.00-0.02); Immature Granulocytes % (auto) 0.3 %; Lymphocytes # (auto) 0.91 K/uL (1.2-3.4); Mean Corpuscular Hgb Conc 33.8 g/dL (32-36); Mean Corpuscular Volume 102.5 fL (80-100); Mean Platelet Volume 9.5 fL (7.4-10.4); Monocytes # (auto) 0.05 K/uL (0.11-0.59); Monocytes % (auto) 0.5 %; Neutrophils # (auto) 8.09 K/uL (1.4-6.5); Platelet Count 324 K/uL (130-400); RDW Coefficient of Variation 15.7 % (11.5-14.5); RDW Standard Deviation 58.7 fL (36.4-46.3); Red Blood Count 3.64 M/uL (4.2-5.4)
--- NOTE | 2018-07-06 07:35 | CT Scan Report ---
CT SCAN OF THE CHEST WITH IV CONTRAST CLINICAL HISTORY: Lung cancer. Hemoptysis. COMPARISON STUDY: Chest CT scans dated 06/27/2018 and 02/21/2014. TECHNIQUE: Following the IV administration of 119 cc of Optiray 320, CT scan of the thorax was perfor med from the thoracic inlet to the upper abdomen. Images are reviewed in the axial, sagittal, and cor onal planes. IV contrast was administered without complication. A dose lowering technique was utiliz ed adhering to the principles of ALARA. The examination is degraded by motion artifact, as well as by streak artifact from the arms which could not be elevated above the chest. CT DOSE: 303.35 mGy.cm FINDINGS: Thyroid: Imaged portions of the thyroid gland are normal in size and attenuation. Subcentimeter low-a ttenuation nodules are noted. Thoracic aorta: There is atherosclerotic calcification of the thoracic aorta, which is normal in liat jerson and demonstrates standard 3-vessel arch anatomy. No dissection is seen. Pulmonary vasculature: The pulmonary trunk is normal in caliber. There are no filling defects identif ied in the central pulmonary vessels to indicate pulmonary embolus. Note that this examination was no t protocoled for evaluation of the pulmonary arteries. Heart: A left subclavian central venous infusion port is in place. The patient is status post midline sternotomy. The heart is mildly enlarged and without pericardial effusion. The coronary arteries are densely calcified. Lungs and pleural spaces: Emphysema and biapical scarring is observed. A pleural drain is again seen at the left lung base. This terminates in the major fissure. There is a small and at least partially loculated left pleural effusion. Trace pleural effusion is seen on the right. Intralobular septal thi ckening is noted in the lower lobes. Numerous small foci of pleural-based nodularity are similar to p revious and typical in appearance for pleural metastases. An 8 mm nodule in the superior segment of t he left lower lobe on image #72 measures 8 mm. Scattered calcified granulomas are observed. Interstit ial thickening and nodularity within the left upper lobe and the right middle and lower lobes may rep resent lymphangitic spread of tumor. Secretions are noted within the trachea and left mainstem bronch us. Mediastinum: There is bulky mediastinal adenopathy which appears centrally necrotic. A prevascular no radha aggregate versus suprahilar lung mass seen on image #96 measures approximately 4.5 x 3 cm. A subc arinal armond aggregate measures approximately 5 x 3 cm as seen on image #117. Anabel: There is likely left hilar adenopathy. Axillae: There is no axillary lymphadenopathy. Upper abdomen: A small hiatal hernia is noted. The gallbladder surgically absent. Pneumobilia is note d. Foci of parenchyma scarring are noted in both kidneys. No adrenal lesion is seen. A normal spleen is not identified. Splenules are noted in the left upper quadrant. Skeletal structures: The skeletal structures are osteopenic. Degenerative change and hyperkyphosis ar e noted throughout the thoracic spine. No lytic or blastic bony lesions are seen. IMPRESSION: 1. Cardiomegaly and emphysema. There has been no significant change from 06/27/2018. 2. A left pleural drain is unchanged in position. There are small residual pleural effusions, left la rger than right. 3. Bulky and centrally necrotic mediastinal adenopathy is unchanged. 4. Pleural-based metastatic disease, pulmonary nodules, and probable lymphangitic spread of tumor is similar to previous. 5. Intralobular septal thickening may represent a component of superimposed congestive failure. Clini orestes correlation will be required. 6. Additional findings as above. Electronically signed by: Jean Gant M.D. 07/06/2018 7:34 AM
[2018-07-06 07:55] LABS: Magnesium 1.9 mg/dl (1.8-2.4); Phosphorus 3.6 mg/dl (2.5-4.9)
[2018-07-06] MEDS ORDERED: NON-FORMULARY MEDICATION (Magnesium 500 MG) PO SCH (09:00)
[2018-07-06] MEDS ORDERED: DRONABINOL 2.5 MG CAP PO SCH (09:00)
[2018-07-06] MEDS ORDERED: ZINC GLUCONATE 30 MG PO SCH (09:00)
[2018-07-06] MEDS: BACLOFEN 10 MG TAB PO SCH ×2 (09:51→22:26)
[2018-07-06] MEDS: LEVOTHYROXINE SODIUM 112 MCG TABLET PO SCH (09:51)
[2018-07-06] MEDS: PANTOprazole 40 MG TAB PO SCH (09:51)
[2018-07-06] MEDS: FLUTICASONE/SALMETEROL 250/50 (ADVAIR) 14 PUFF/1 INHALER INH SCH ×2 (09:52→22:24)
[2018-07-06] MEDS: FLUTICASONE PROPIONATE NA SPR 16 GM BTL SCH (09:52)
[2018-07-06] MEDS: PROCHLORPERAZINE MALEATE 10 MG TAB PO PRN ×2 (09:53→16:19)
[2018-07-06] MEDS: IPRATROPIUM BROMIDE/ALBUTEROL respimat INH INH SCH ×2 (09:53→22:25)
[2018-07-06] MEDS: METOPROLOL SUCC 25MG EXT REL TAB PO SCH (09:54)
[2018-07-06] MEDS: MUPIROCIN 2% OINT 22 GM TUBE TOP SCH ×3 (09:54→22:35)
[2018-07-06] MEDS: FOLIC ACID 1 MG TAB PO SCH (09:54)
[2018-07-06] MEDS: LORATADINE 10 MG TAB PO SCH (09:54)
[2018-07-06] MEDS: FERROUS SULFATE 325 MG TAB PO SCH ×3 (09:54→22:37)
[2018-07-06] MEDS: CHOLECALCIFEROL 1,000 UNITS TAB PO SCH (09:55)
[2018-07-06] MEDS: VITAMIN B COMPLEX TAB PO SCH (09:55)
[2018-07-06] MEDS ORDERED: HEPARIN 100 UNIT/ML 5ML FLUSH ONE (10:23)
[2018-07-06] MEDS: DRONABINOL 2.5 MG CAP PO SCH ×2 (14:16→22:37)
[2018-07-06] MEDS ORDERED: PHYTONADIONE 5 MG TAB PO STA (16:43)
[2018-07-06] MEDS: levoFLOXacin 500 MG TAB PO SCH (17:48)
[2018-07-06] MEDS: methylPREDNISolone 40 MG in SYRINGE 0 ML IV SCH (17:49)
[2018-07-06 18:59] LABS: Basophils # (auto) 0.03 K/uL (0-0.2); Basophils % (auto) 0.3 %; Eosinophils # (auto) 0.03 K/uL (0-0.5); Eosinophils % (auto) 0.3 %; Hematocrit (blood only) 35.3 % (37-47); Hemoglobin 11.9 g/dL (12.0-16.0); Immature Granulocytes # (auto) 0.04 K/uL (0.00-0.02); Immature Granulocytes % (auto) 0.4 %; Lymphocytes % (auto) 22.2 %; Mean Corpuscular Hgb Conc 33.7 g/dL (32-36); Mean Corpuscular Volume 102.3 fL (80-100); Mean Platelet Volume 9.4 fL (7.4-10.4); Monocytes # (auto) 0.68 K/uL (0.11-0.59); Monocytes % (auto) 7.2 %; Neutrophils # (auto) 6.58 K/uL (1.4-6.5); Neutrophils % (auto) 69.6 %; Platelet Count 314 K/uL (130-400); RDW Coefficient of Variation 15.9 % (11.5-14.5); RDW Standard Deviation 59.4 fL (36.4-46.3); Red Blood Count 3.45 M/uL (4.2-5.4); White Blood Count 9.46 K/uL (4.8-10.8)
[2018-07-06] MEDS: LEVALBUTEROL 1.25MG/0.5ML NEB NEB SCH (20:33)
--- NOTE | 2018-07-06 22:20 | Consultation Report ---
DATE OF CONSULTATION: 07/06/2018 Ms. Preston was seen today on 07/06/2018. HISTORY OF PRESENT ILLNESS: This patient who is well known to me. A 68-year-old with a history of lymphoma, metastatic small cell carcinoma of the lung who was treated with this and presented just last month with a bilateral pleural effusion. She looked quite poorly after receiving chemotherapy. The patient has settled down since and I saw her in the hospital about 2 weeks ago and her pleural drainage from her left PleurX catheter was replaced, was better and her right side was better. I was quite pleased with her and she was scheduled to be reevaluated by medical oncology to see whether or not she was a candidate for further chemotherapy. Quite disappointed when I saw her CT scan now from 06/27/2018 but also for 07/06/2018, which showed she had actually had progression of disease in the face of chemotherapy. Her mediastinal lymph nodes are much enlarged. Pleural effusions are much better. She really does not have any fluid on the right and has some fluid on the left. We have not been draining very much fluid from this PleurX. The patient presents. She has had some blood-streaked sputum. It is not very impressive. I was asked to evaluate her from a thoracic surgery standpoint to help management of this PleurX catheter. For specifics of this patient's past medical history, please refer to my full consultation from 05/13/2018. It should be noted that I performed bilateral thoracentesis and had left PleurX catheter insertion. I will follow along and write orders for her PleurX catheter. Thank you very much for asking me to see this patient.
--- NOTE | 2018-07-06 23:59 | Consultation Report ---
DATE OF CONSULTATION: 07/06/2018 REASON FOR CONSULTATION: Hemoptysis in a patient with advanced small cell carcinoma of the lung. HISTORY OF PRESENT ILLNESS: A 68-year-old white female with advanced small cell carcinoma of the lung and previous history of Hodgkin's lymphoma treated with mantle field radiation in 1987 to the chest, was admitted by the hospitalist service, Dr. Mary Jo Loyd on early a.m. of 07/06/2018 with hemoptysis. The patient states that the blood, which was represented more francois blood had occurred over the past several days prior to admission, but she was able to expectorate the material and became concerned. It was also associated with significant respiratory symptoms. The patient was diagnosed in 02/2018 with small cell carcinoma and is status post 2 cycles of etoposide/cisplatin. She had to be admitted prior to the third cycle of treatment for CHF and worsening respiratory status and it was determined with her discussion at that time with Dr. Baljeet Doshi that she was a poor candidate for additional chemotherapy and a palliative consultation was obtained. She states she has transferred her care to Dr. Bai. During my interview with the patient at bedside was [employer]/relative of the patient. In the ER, where she was evaluated, she had a white count of 8300, H and H [address] scan of the chest done as an angiogram when compared to one done just 9 days prior showed cardiomegaly and emphysema with no significant change and a left pleural drain placed by Dr. Steele was unchanged in position with a small residual pleural effusion, left greater than right (the patient had a PleurX catheter placed on the right in the past by Dr. Steele with significant drainage and that was removed). The patient remains with very extensive bulky and essentially necrotic mediastinal adenopathy and numerous pleural-based metastatic nodules and possibly a suggestion of lymphangitic spread of the tumor. Intralobular septal thickening probably represents an element of congestive failure, etc. The patient is on Coumadin therapy, although did not take the dose the evening prior. She was anticoagulated for her atrial fibrillation in the past. She is on metoprolol. She has been treated for a COPD/asthma and has been on continuous oxygen at home. Her appetite has been poor and she has had an unspecified amount of weight loss. For details of past medical history, medications, family and social history, I refer you to current and past record. PHYSICAL EXAMINATION: GENERAL: Well-developed, cachectic white female, appearing in mild respiratory distress. The vital signs were as I noted. CURRENT VITAL SIGNS: Blood pressure 97/55, pulse 98 and regular, respiratory rate 18, temperature 36.4, pulse 95, O2 sats 95% on 1 L. SKIN: Without lesion. HEENT: Atraumatic, normocephalic, PERRLA. LUNGS: Scattered rhonchi diffusely. CARDIAC: Regular rate and rhythm. I do not appreciate a gallop. ABDOMEN: Soft, scaphoid. No evidence of hepatosplenomegaly. EXTREMITIES: Trace pedal edema. No clubbing. Peripheral cyanosis. NEUROLOGIC: Intact. PAST MEDICAL HISTORY: Pertinent for history of Hodgkin's lymphoma status post splenectomy and cardiac stenting as well as cholecystectomy. CT scan as noted. Other lab work. See HPI. OVERALL ASSESSMENT: A 68-year-old white female with a history of ischemic cardiac disease, chronic obstructive pulmonary disease, Hodgkin's lymphoma status post mantle radiation and locally advanced small cell carcinoma, now presents with hemoptysis while on anticoagulation therapy for paroxysmal atrial fibrillation. I have asked that her Coumadin be held. We have held off any consideration for bronchoscopic evaluation while her INR is prolonged. I suspect patient has a superimposed pneumonitis and a degree of congestive heart failure, both that can contribute to her hemoptysis aggravated by anticoagulation. Certainly, a neoplastic process as the etiology of her hemoptysis must be considered. In addition, there appears in the mediastinum to be significant encroachment of the pulmonary veins and arteries, especially in the left side and the hemoptysis may represent erosion into those vascular structures. In any event, we will hold off on any bronchoscopic evaluation, asked that the Coumadin be held, perhaps even with the addition of fresh frozen plasma. Pulmonary toilet including aerosolized bronchodilator would be advisable and would place the patient on IV antibiotic therapy as well to cover for hospital-acquired organism. IV Solu-Medrol is a good idea as well. We will discuss with the primary hospitalist service. Thank you very much for this consultation. ZANDRA
[2018-07-07] MEDS: LEVALBUTEROL 1.25MG/0.5ML NEB NEB SCH (01:52)
[2018-07-07] MEDS: LEVALBUTEROL HCL 1.25 MG/3 ML NEB NEB SCH ×4 (02:30→19:36)
[2018-07-07] MEDS: LEVOTHYROXINE SODIUM 112 MCG TABLET PO SCH ×2 (06:03→09:24)
[2018-07-07] MEDS: methylPREDNISolone 40 MG in SYRINGE 0 ML IV SCH ×2 (06:03→17:37)
[2018-07-07 06:06] LABS: Basophils # (auto) 0.01 K/uL (0-0.2); Basophils % (auto) 0.1 %; Hemoglobin 11.9 g/dL (12.0-16.0); Immature Granulocytes # (auto) 0.02 K/uL (0.00-0.02); Immature Granulocytes % (auto) 0.2 %; Lymphocytes # (auto) 0.96 K/uL (1.2-3.4); Lymphocytes % (auto) 11.9 %; Mean Corpuscular Hgb Conc 33.1 g/dL (32-36); Mean Corpuscular Volume 103.4 fL (80-100); Mean Platelet Volume 10.2 fL (7.4-10.4); Monocytes # (auto) 0.49 K/uL (0.11-0.59); Neutrophils # (auto) 6.62 K/uL (1.4-6.5); Neutrophils % (auto) 81.8 %; Platelet Count 332 K/uL (130-400); RDW Standard Deviation 59.8 fL (36.4-46.3); Red Blood Count 3.48 M/uL (4.2-5.4)
[2018-07-07 06:18] LABS: INR 1.4 (0.9-1.1); Prothrombin Time 13.8 Seconds (9.0-12.0)
[2018-07-07 06:43] LABS: Creatinine Clr Calc Pharmacy 135.2 ml/min; Est GFR (African American) 138.9; Est GFR (Non-African American) 119.8
[2018-07-07] MEDS ORDERED: LEVALBUTEROL TARTRATE 15 GM HFA.AER.AD INH SCH (08:00)
[2018-07-07] MEDS ORDERED: diazePAM 2 MG TABLET PO STA (08:01)
[2018-07-07] MEDS: FOLIC ACID 1 MG TAB PO SCH (09:25)
[2018-07-07] MEDS: BACLOFEN 10 MG TAB PO SCH ×2 (09:25→22:06)
[2018-07-07] MEDS: FERROUS SULFATE 325 MG TAB PO SCH ×3 (09:25→17:44)
[2018-07-07] MEDS: LORATADINE 10 MG TAB PO SCH (09:25)
[2018-07-07] MEDS: DRONABINOL 2.5 MG CAP PO SCH ×3 (09:25→22:06)
[2018-07-07] MEDS: VITAMIN B COMPLEX TAB PO SCH (09:26)
[2018-07-07] MEDS: PANTOprazole 40 MG TAB PO SCH (09:26)
[2018-07-07] MEDS: CHOLECALCIFEROL 1,000 UNITS TAB PO SCH (09:26)
[2018-07-07] MEDS: METOPROLOL SUCC 25MG EXT REL TAB PO SCH (09:26)
[2018-07-07] MEDS: IPRATROPIUM BROMIDE/ALBUTEROL respimat INH INH SCH ×2 (09:47→22:05)
[2018-07-07] MEDS: FLUTICASONE/SALMETEROL 250/50 (ADVAIR) 14 PUFF/1 INHALER INH SCH ×2 (09:47→22:04)
[2018-07-07] MEDS: FLUTICASONE PROPIONATE NA SPR 16 GM BTL SCH (09:47)
[2018-07-07] MEDS: MUPIROCIN 2% OINT 22 GM TUBE TOP SCH ×3 (09:48→22:05)
[2018-07-07 09:59] LABS: INR 1.2 (0.9-1.1); Prothrombin Time 12.5 Seconds (9.0-12.0)
--- NOTE | 2018-07-07 12:00 | History & Physical Bridge Note ---
Date of Service July 07, 2018 History & Physical Bridge Note I have examined the patient, reviewed the History & Physical and in the interval since the performance of the History & Physical I have noted the following changes of clinical significance: no changes noted
--- NOTE | 2018-07-07 12:00 | Pre Anesthesia Assessment ---
Date of Service July 07, 2018 Pre Sedation Assessment Vital Signs Temp Pulse Pulse Pulse Resp BP BP 07/07/18 07:19 94 H 16 07/07/18 07:14 36.5 C 97 H 16 102/61 07/07/18 07:00 104 H 07/07/18 03:00 36.8 C 102 H 18 94/56 L 07/07/18 02:31 86 18 07/06/18 23:56 37 C 105 H 20 106/66 07/06/18 20:33 88 07/06/18 19:43 36.7 C 91 H 22 111/78 07/06/18 17:00 103 H 07/06/18 16:00 36.9 C 105 H 19 94/62 L Pulse Ox 07/07/18 07:19 100 07/07/18 07:14 94 07/07/18 07:00 07/07/18 03:00 97 07/07/18 02:31 07/06/18 23:56 98 07/06/18 20:33 95 07/06/18 19:43 97 07/06/18 17:00 07/06/18 16:00 97 Cardiovascular RRR, no murmur, no edema + peripheral pulses normal Respiratory normal respiratory effort, lungs clear to auscultation Pre-Sedation Airway Assessment Smoking Status: Current every day smoker Hx Sleep Apnea: No Short, Thick Neck: No Thyromental Distance: > or= 3.5 Finger Breadths Oral Cavity: + Dentures Mallampati Class: II ASA: ASA3 NPO Status Date of Last Intake of Fluids: 07/06/18 Time of Last Intake of Fluids: 22:00 Date of Last Intake of Solid Food: 07/06/18 Time of Last Intake of Solid Foods: 22:00 Notes The planned sedation has been discussed with the patient. Informed Consent was obtained. I have identified the patient, determined the appropriateness of sedation and have assessed the patient immediately prior to the procedure. All medicine(s) and interventions are by my order.
[2018-07-07] MEDS: levoFLOXacin 500 MG TAB PO SCH (12:06)
--- NOTE | 2018-07-07 12:20 | Post Anesthesia Assessment ---
Date of Service July 07, 2018 Post Sedation Assessment Vital Signs Temp Pulse Pulse Pulse Resp BP BP 07/07/18 12:15 114 H 24 147/99 H 07/07/18 12:10 110 H 24 146/89 H 07/07/18 12:05 108 H 20 139/72 07/07/18 12:00 106 H 20 150/77 H 07/07/18 07:19 94 H 16 07/07/18 07:14 36.5 C 97 H 16 102/61 07/07/18 07:00 104 H 07/07/18 03:00 36.8 C 102 H 18 94/56 L 07/07/18 02:31 86 18 07/06/18 23:56 37 C 105 H 20 106/66 07/06/18 20:33 88 07/06/18 19:43 36.7 C 91 H 22 111/78 07/06/18 17:00 103 H 07/06/18 16:00 36.9 C 105 H 19 94/62 L Pulse Ox 07/07/18 12:15 96 07/07/18 12:10 100 07/07/18 12:05 100 07/07/18 12:00 100 07/07/18 07:19 100 07/07/18 07:14 94 07/07/18 07:00 07/07/18 03:00 97 07/07/18 02:31 07/06/18 23:56 98 07/06/18 20:33 95 07/06/18 19:43 97 07/06/18 17:00 07/06/18 16:00 97 Recovery Score Activity: Moves 4 extremities Respiration: Deep Breath/Cough Circulation: +/-20% PreAnes Value Consciousness: Fully Awake Discharge Sedation Level of Care: Fast Track Phase II Post Sedation Plan On clinical assessment, the patient appears to have tolerated the sedation without complications. Patient is recovering as anticipated. Patient will continue to be monitored by nursing and may be discharged when sedation discharge criteria are met per below protocol. Upon Completions of procedure and additional 15 minutes continue every 5 minute vital signs and the P.A.R. score; then discharge to a Phase I or Fast Track to Phase II per the following guidelines: * Discharge Patient to appropriate Phase II area if PAR is 8 or greater or return to pre- procedure baseline. The post - procedure orders will be as directed. * If PAR score is less than 8 or not return to pre-procedure baseline then patient will follow Phase I monitoring till PAR is reached for Phase II. The Phase I may be done in procedure room or may call to secure a Phase I area. * If naloxone or flumazenil are used for reversal, hold in Phase I for continued monitoring from when last reversal dose was given for a minimum of 60 minutes or longer pending the nurse and/or physician discretion of patient condition before discharge to Phase II. Please call the Sedation Physician to re-evaluate and complete post-note for discharge to Phase II area. Do NOT discharge from procedure sedation or Phase 1 until post- sedation evaluation note is complete by procedure /sedation MD Sedation Discharge Instructions to be given to the patient at discharge to home.
[2018-07-07] MEDS ORDERED: LIDOCAINE HCL VISCOUS SOLN 2% 15 ML UDC EXT ONE (12:23)
[2018-07-07] MEDS ORDERED: OXYMETAZOLINE 0.05% 30 ML BTL ONE (12:23)
[2018-07-07] MEDS ORDERED: LEVALBUTEROL HCL 1.25 MG/3 ML NEB NEB STA (12:23)
[2018-07-07] MEDS ORDERED: fentaNYL citrate 100 MCG/2 ML VIAL IV ONE (12:23)
[2018-07-07] MEDS ORDERED: LIDOCAINE 4% INH SOLN 4 ML BTL INH ONE (12:24)
--- NOTE | 2018-07-07 12:27 | Post Operative Brief Note ---
Immediate Post Op Note v1 Date of Surgery July 07, 2018 Pre & Post Diagnosis Operation Date: 07/07/18 11:00 <No data on this case meets the specified criteria> Recurrent Hemoptysis secondary to bronchogenic neoplasm Procedure Operation Date: 07/07/18 11:00 Actual Procedures p Bronchoscopy(Bilateral) - Alireza Maldonado MD Surgeon Alireza Maldonado MD Studio Engineer none Estimated Blood Loss 0 Findings Consistent with Post-Op Diagnosis Hemoptysis secondary recurrent bronchogenic ca Disposition Accompanied Patient To Recovery: No Overlapping Procedure I was present for: the critical portions of procedure. I was immediately available: during the entire case. Back up surgeon: was not required during procedure.
[2018-07-07] MEDS ORDERED: LIDOCAINE HCL 2% (LOCAL) INJ 50 ML VIAL INSTIL SCH (12:30)
--- NOTE | 2018-07-07 14:43 | Hospitalist Progress Note ---
Date of Service July 07, 2018 Assessment & Plan (1) Hemoptysis: Patient with small amount of hemoptysis, francois blood. Likely malignancy- related in the setting of being on anticoagulation for her afib vs. lymphangitic carcinomatosis vs. volume overload. - Bronch done on 07/07 with results pending from Dr. Maldonado - Holding ASA, Coumadin - Restart after discussing with pulm (2) Primary small cell malignant neoplasm of lung, stage 4: Patient with extensive-stage small cell lung cancer, diagnosed February 2018 s/p 2 cycles of etoposide/cisplatin. Prior to initiation of cycle 3 she was admitted to the hospital for presumed CHF exacerbation. Further chemotherapy treatments were put on hold until patient medically optimized. Patient had a CT of the chest/abdomen and pelvis performed on 06/27/18 which was consistent with progression of disease, progressive bulky mediastinal adenopathy with increased size of the pleural based masses and nodules with mediastinal invasion. Possibility of lymphangitic carcinomatosis as well. No metastatic disease in the abdomen or pelvis. The decision to resume chemotherapy is yet to be determined. - Symptomatic management, pain and nausea control (3) Severe protein-calorie malnutrition: Noted on admission. - Encourage PO intake when diet is advanced - Continue Dronabinol for appetite stimulation - Nausea control with Zofran and prochlorperazine (4) Hypothyroidism: Chronic. TSH=2.86 on 03/03/18. - Continue Synthroid (5) Atrial fibrillation: Patient rate controlled. Usually anticoagulated on Coumadin. - Continue metoprolol - Hold Coumadin in setting of hemoptysis - Monitor INR (6) Asthma: Presently with adequate saturation on 2L NC. No respiratory distress. No wheezing. - Continue Advair - Continue Albuterol PRN (7) CAD (coronary artery disease): Stable. No CP. EKG without evidence of ischemia. - Hold ASA in setting of hemoptysis - Continue Metoprolol (8) GERD (gastroesophageal reflux disease): Chronic. Well-controlled on home medications. - Continue Ranitidine and Omeprazole daily (9) COPD (chronic obstructive pulmonary disease): Patient with history of COPD. Presently without respiratory distress or wheeze. Adequate oxygenation on 2L NC. - Continue Combivent - Continue Advair - Albuterol PRN (10) Tobacco use disorder: Patient continues to smoke appx / ppd. - Tobacco cessation counseling (11) Pleural effusion: Patient had PleurX catheter in the past for non-malignant pleural effusion which was eventually removed. She was admitted in April 2018 with respiratory distress and worsening pleural effusions, R >L. She had bedside US-guided thoracentesis performed on 05/13/[address] Steele in which 1350mL of rust colored fluid was drained. Patient had placement of left sided Pleur-X catheter on 05/23/[address] Steele. She has home nursing q M/W/F that comes for catheter drainage. She reports that the last 4-5 times the fluid was drained it was more bloody than usual. Pleur-X site is mildly tender with palpation. Patient follows with Dr. Steele outpatient, last seen on . - Wound care for dressing changes and catheter drainage daily - Monitor output (12) DVT prophylaxis: SCDs - Holding heparin until cleared by pulmonology Subjective Feeling fairly well. No further hemoptysis since yesterday. Plan for bronch today. She is somewhat nervous about this. Reports no fevers/chills, chest pain, shortness of breath, abdominal pain, nausea, or vomiting. Physical Exam Vital Signs (Past 24 Hours): Last Vital Signs Temp 36.8 C 07/07/18 12:45 Pulse 68 07/07/18 14:06 Resp 18 07/07/18 14:06 BP 113/72 07/07/18 13:45 Pulse Ox 93 07/07/18 14:06 Constitutional: WD/WN, vitals as above Eyes: EOM intact bilaterally; no conjunctival abnormality ENMT: external ear and nose normal, oropharynx normal Mallampati Class: II Neck: trachea midline, no thyromegaly normal visual inspection Respiratory: normal respiratory effort, lungs clear to auscultation no respiratory distress Cardiovascular: RRR, no murmur, no edema Vessels: normal peripheral pulses Gastrointestinal (Abdomen): Inspection/Auscultation: abdomen normal to inspection; abdomen not distended Musculoskeletal: no cyanosis or clubbing, extremities motor strength 5/5 Skin: no rashes, warm and dry Neurologic: moves all extremities and awake Psychiatric: Orientation: alert, oriented to person and cooperative (1) CAD (coronary artery disease) Associated angina: without angina Coronary Disease-Associated Artery/Lesion type: [place] artery [place] vs. transplanted heart: [place] heart Qualified Code(s): I25.10 - Atherosclerotic heart disease of [place] coronary artery without angina pectoris (2) Atrial fibrillation Atrial fibrillation type: chronic Qualified Code(s): I48.2 - Chronic atrial fibrillation (3) Hypothyroidism Hypothyroidism type: acquired Qualified Code(s): E03.9 - Hypothyroidism, unspecified (4) COPD (chronic obstructive pulmonary disease) COPD type: unspecified COPD Qualified Code(s): J44.9 - Chronic obstructive pulmonary disease, unspecified (5) GERD (gastroesophageal reflux disease) Esophagitis presence: esophagitis presence not specified Qualified Code(s): K21.9 - Gastro-esophageal reflux disease without esophagitis (6) Asthma Asthma complication type: uncomplicated Asthma persistence: persistent Asthma severity: moderate Qualified Code(s): J45.40 - Moderate persistent asthma, uncomplicated
[2018-07-07] MEDS: SODIUM CHLORIDE 0.9% 1000ML 1,000 ML IV SCH (17:39)
[2018-07-07] MEDS: DOCUSATE SODIUM 100 MG CAP PO PRN (22:03)
--- NOTE | 2018-07-08 01:02 | Operative Report ---
DATE OF OPERATION: 07/07/2018 TIME: 1200 hours. PROCEDURE: Fiberoptic bronchoscopy. INDICATIONS: Gross hemoptysis in a patient with bronchogenic carcinoma. ANESTHESIA PREOPERATIVELY: None. ANESTHESIA DURING PROCEDURE: 100 mcg IV fentanyl, 20 mL 2% Xylocaine spray above and below the cords, 4% viscous Xylocaine intranasally. DESCRIPTION OF PROCEDURE: Moderate conscious sedation was utilized and begun at 1203 and completed at 1218. Fiberoptic bronchoscope was inserted into the right naris with minimal difficulty and passed to the level of the true vocal cords. The cords appeared to approximate normally with phonation without evidence for lesions or paralysis. The area was anesthetized with 2% Xylocaine spray and the scope was then introduced into the right and left tracheobronchial tree. The brian was sharp. The right main stem bronchus was explored and no endobronchial lesions were seen. Right upper lobe at the apical posterior, anterior segments, bronchus intermedius, right middle lobe at the medial lateral segments and all basilar segments of right lower lobe were found to be free of endobronchial lesions down to subsegmental bronchi. A copious amount of mucopurulent secretion was lavaged from right lower lobe until clear. The left tracheobronchial tree was explored and no discernible endobronchial lesion was seen in the left mainstem bronchus and no discernible bleeding. The left upper lobe at the orifice showed mucosal irregularity in an area of heaped-up material protruding into the lumen consistent with recurrent neoplasm. The left lower lobe with all basilar segments of the lingular orifice were free of endobronchial lesions. This area of concern was lavaged with normal saline and a moderate amount of bleeding was encountered which abated following installation of iced saline lavage. The aspirate was collected, but no brushings or biopsies were attempted given the patient's previous diagnosis and ongoing problem with hemoptysis. Will await microbiological and cytologic examination of the bronchial washings. I attest to the content of the Intraoperative Record and any orders documented therein. Any exception s are noted below.
[2018-07-08] MEDS: LEVALBUTEROL HCL 1.25 MG/3 ML NEB NEB SCH ×4 (02:12→19:28)
[2018-07-08] MEDS: methylPREDNISolone 40 MG in SYRINGE 0 ML IV SCH ×2 (04:46→17:23)
[2018-07-08 06:05] LABS: Hematocrit (blood only) 36.5 % (37-47); Mean Corpuscular Hgb Conc 32.9 g/dL (32-36); Mean Corpuscular Volume 104.9 fL (80-100); Platelet Count 336 K/uL (130-400); RDW Coefficient of Variation 16.1 % (11.5-14.5); RDW Standard Deviation 61.5 fL (36.4-46.3); Red Blood Count 3.48 M/uL (4.2-5.4); White Blood Count 13.62 K/uL (4.8-10.8)
[2018-07-08] MEDS: LEVOTHYROXINE SODIUM 112 MCG TABLET PO SCH (06:10)
[2018-07-08 06:14] LABS: Prothrombin Time 10.7 Seconds (9.0-12.0)
[2018-07-08 06:39] LABS: BUN Creatinine Ratio 43.2 (10-20); Calcium 9.3 mg/dl (8.5-10.1); Est GFR (African American) 130.5; Est GFR (Non-African American) 112.6; Magnesium 1.9 mg/dl (1.8-2.4); Potassium 4.2 mmol/L (3.5-5.1)
[2018-07-08] MEDS: FLUTICASONE PROPIONATE NA SPR 16 GM BTL SCH (10:36)
[2018-07-08] MEDS: MUPIROCIN 2% OINT 22 GM TUBE TOP SCH ×3 (10:36→20:32)
[2018-07-08] MEDS: FLUTICASONE/SALMETEROL 250/50 (ADVAIR) 14 PUFF/1 INHALER INH SCH ×2 (10:36→20:31)
[2018-07-08] MEDS: levoFLOXacin 500 MG TAB PO SCH (10:37)
[2018-07-08] MEDS: CHOLECALCIFEROL 1,000 UNITS TAB PO SCH (10:37)
[2018-07-08] MEDS: IPRATROPIUM BROMIDE/ALBUTEROL respimat INH INH SCH ×2 (10:37→20:31)
[2018-07-08] MEDS: LORATADINE 10 MG TAB PO SCH (10:37)
[2018-07-08] MEDS: METOPROLOL SUCC 25MG EXT REL TAB PO SCH (10:37)
[2018-07-08] MEDS: PANTOprazole 40 MG TAB PO SCH (10:37)
[2018-07-08] MEDS: BACLOFEN 10 MG TAB PO SCH ×2 (10:38→20:33)
[2018-07-08] MEDS: VITAMIN B COMPLEX TAB PO SCH (10:38)
[2018-07-08] MEDS: FERROUS SULFATE 325 MG TAB PO SCH ×3 (10:38→20:31)
[2018-07-08] MEDS: FOLIC ACID 1 MG TAB PO SCH (10:38)
[2018-07-08] MEDS: DOCUSATE SODIUM 100 MG CAP PO PRN (10:39)
[2018-07-08] MEDS: DRONABINOL 2.5 MG CAP PO SCH ×3 (10:51→20:32)
[2018-07-08] MEDS ORDERED: BISACODYL 10 MG SUPP PR STA (15:33)
[2018-07-08] MEDS ORDERED: MINERAL OIL ENEMA 133 ML BTL PR STA (15:33)
--- NOTE | 2018-07-08 17:02 | Hospitalist Progress Note ---
Date of Service July 08, 2018 Assessment & Plan (1) Hemoptysis: Patient with small amount of hemoptysis, francois blood. Likely malignancy- related in the setting of being on anticoagulation for her afib vs. lymphangitic carcinomatosis vs. volume overload. - Bronch done on 07/07 with cytology was just brushings and not a biopsy in the setting of having hemoptysis this was not performed, but suspect recurrent bronchogenic carcinoma-cells negative for malignancy -Have been holding aspirin Coumadin-discussed with patient and pulmonology-will not restart anticoagulation or antiplatelet at this point as the risk of hemoptysis outweighs the benefit of stroke prevention with A. fib especially g iven her very poor overall prognosis and life expectancy -Follow CBC in the morning and if stable and no more hemoptysis, can be discharged home tomorrow (2) Primary small cell malignant neoplasm of lung, stage 4: Patient with extensive-stage small cell lung cancer, diagnosed February 2018 s/p 2 cycles of etoposide/cisplatin. Prior to initiation of cycle 3 she was admitted to the hospital for presumed CHF exacerbation. Further chemotherapy treatments were put on hold until patient medically optimized. Patient had a CT of the chest/abdomen and pelvis performed on 06/27/18 which was consistent with progression of disease, progressive bulky mediastinal adenopathy with increased size of the pleural based masses and nodules with mediastinal invasion. Possibility of lymphangitic carcinomatosis as well. No metastatic disease in the abdomen or pelvis. The decision to resume chemotherapy is yet to be determined. - Symptomatic management, pain and nausea control -She has an appointment with oncology this coming Wednesday to discuss any further treatment options -Discussed the option of palliative care consult which she had last month and was very upset with talking to them and does not want to again at this point (3) Severe protein-calorie malnutrition: Noted on admission. Is cachectic secondary to cancer and chemotherapy - Encourage PO intake when diet is advanced - Continue Dronabinol for appetite stimulation - Nausea control with Zofran and prochlorperazine (4) Hypothyroidism: Chronic. TSH=2.86 on 03/03/18. - Continue Synthroid (5) Atrial fibrillation: Currently in normal sinus rhythm. Usually anticoagulated on Coumadin which has been on hold for hemoptysis INR down to 1.0 today. - Continue metoprolol 25 mg daily -Permanently discontinue Coumadin in setting of hemoptysis (6) Asthma: Presently with adequate saturation on 2L NC. No respiratory distress. No wheezing. - Continue Advair - Continue Albuterol PRN (7) CAD (coronary artery disease): Stable. No CP. EKG without evidence of ischemia. - Hold ASA in setting of hemoptysis - Continue Metoprolol (8) GERD (gastroesophageal reflux disease): Chronic. Well-controlled on home medications. - Continue Ranitidine and Omeprazole daily (9) COPD (chronic obstructive pulmonary disease): Patient with history of COPD. Presently without respiratory distress or wheeze. Adequate oxygenation on 2L NC. - Continue Combivent - Continue Advair - Albuterol PRN (10) Tobacco use disorder: Patient continues to smoke appx 03/30 ppd. - Tobacco cessation counseling (11) Pleural effusion: Patient had PleurX catheter in the past for non-malignant pleural effusion which was eventually removed. She was admitted in April 2018 with respiratory distress and worsening pleural effusions, R >L. She had bedside US-guided thoracentesis performed on 05/13/[address] Steele in which 1350mL of rust colored fluid was drained. Patient had placement of left sided Pleur-X catheter on 05/23/[address] Steele. She has home nursing q M/W/F that comes for catheter drainage. She reports that the last 4-5 times the fluid was drained it was more bloody than usual. Pleur-X site is mildly tender with palpation. Patient follows with Dr. Steele outpatient, last seen on . - Wound care for dressing changes and catheter drainage Wednesday as she does it at home-output 250 mL's today - Monitor output (12) Hypoxia: Acute hypoxic respiratory failure Requiring 2 L nasal cannula but satting 90% at this point -Wean off supplemental O2 -If cannot wean, will need to step prior to discharge tomorrow (13) Constipation: Severe constipation, she manually disimpacted herself here -Increase MiraLAX to twice daily -Mineral oil enema as needed -Bisacodyl FL suppository as needed (14) DVT prophylaxis: SCDs Disposition-improved, likely discharged home tomorrow Subjective Patient feeling much better today, less short of breath but remains on oxygen. She had one small dime size amount of hemoptysis last night. Is constipated but disimpacted herself manually today and feels better Is ready to go home in the near future Telemetry with sinus rhythm and left bundle branch block Rates 90s-110s, PVCs Review of Systems All systems reviewed & are unremarkable except as noted in HPI & below Physical Exam Vital Signs (Past 24 Hours): Last Vital Signs Temp 36.7 C 07/08/18 11:56 Pulse 109 H 07/08/18 16:00 Resp 18 07/08/18 14:14 BP 139/77 07/08/18 11:56 Pulse Ox 98 07/08/18 14:14 Constitutional: + cachectic Eyes: PERRL, conjunctivae normal, anicteric sclerae ENMT: external ear and nose normal, oropharynx normal Neck: trachea midline, no thyromegaly Respiratory: normal respiratory effort Auscultation: + crackles (At the left middle lung field) Cardiovascular: RRR, no murmur, no edema Gastrointestinal (Abdomen): normal bowel sounds, soft, nontender, no hepatosplenomegaly Musculoskeletal: Extremities: extremities normal to inspection; no cyanosis and no clubbing Skin: no rashes, warm and dry Neurologic: moves all extremities and awake; no focal motor deficits Psychiatric: A+Ox3, euthymic affect Results & Data Laboratory Results Hemoglobin 12.0 up from yesterday 11.4 WBC count 13 up from 8 yesterday Platelets 336 INR 1.0 BMP normal BAL alpha galactomannan is pending BAL culture and cytology pending (1) CAD (coronary artery disease) Associated angina: without angina Coronary Disease-Associated Artery/Lesion type: [place] artery [place] vs. transplanted heart: [place] heart Qualified Code(s): I25.10 - Atherosclerotic heart disease of [place] coronary artery without angina pectoris (2) Atrial fibrillation Atrial fibrillation type: chronic Qualified Code(s): I48.2 - Chronic atrial fibrillation (3) Hypothyroidism Hypothyroidism type: acquired Qualified Code(s): E03.9 - Hypothyroidism, unspecified (4) COPD (chronic obstructive pulmonary disease) COPD type: unspecified COPD Qualified Code(s): J44.9 - Chronic obstructive pulmonary disease, unspecified (5) GERD (gastroesophageal reflux disease) Esophagitis presence: esophagitis presence not specified Qualified Code(s): K21.9 - Gastro-esophageal reflux disease without esophagitis (6) Asthma Asthma complication type: uncomplicated Asthma persistence: persistent Asthma severity: moderate Qualified Code(s): J45.40 - Moderate persistent asthma, uncomplicated
[2018-07-08] MEDS: POLYETHYLENE (MIRALAX) 17 GM PACK PO SCH (17:23)
[2018-07-09] MEDS: LEVALBUTEROL HCL 1.25 MG/3 ML NEB NEB SCH ×3 (02:10→14:36)
[2018-07-09] MEDS: methylPREDNISolone 40 MG in SYRINGE 0 ML IV SCH ×2 (05:45→17:34)
[2018-07-09] MEDS: HEPARIN 100 UNIT/ML 5ML FLUSH IV PRN ×2 (05:45→06:16)
[2018-07-09] MEDS: LEVOTHYROXINE SODIUM 112 MCG TABLET PO SCH (05:45)
[2018-07-09 06:36] LABS: Basophils # (auto) 0.01 K/uL (0-0.2); Basophils % (auto) 0.1 %; Hematocrit (blood only) 36.7 % (37-47); Hemoglobin 12.1 g/dL (12.0-16.0); Immature Granulocytes # (auto) 0.02 K/uL (0.00-0.02); Immature Granulocytes % (auto) 0.2 %; Lymphocytes # (auto) 1.71 K/uL (1.2-3.4); Lymphocytes % (auto) 15.5 %; Mean Platelet Volume 9.8 fL (7.4-10.4); Monocytes # (auto) 1.18 K/uL (0.11-0.59); Monocytes % (auto) 10.7 %; Neutrophils # (auto) 8.08 K/uL (1.4-6.5); Neutrophils % (auto) 73.5 %; Platelet Count 321 K/uL (130-400); RDW Coefficient of Variation 16.1 % (11.5-14.5); RDW Standard Deviation 61.2 fL (36.4-46.3); Red Blood Count 3.53 M/uL (4.2-5.4)
[2018-07-09] MEDS: FERROUS SULFATE 325 MG TAB PO SCH ×2 (07:51→11:45)
[2018-07-09] MEDS: LORATADINE 10 MG TAB PO SCH (07:51)
[2018-07-09] MEDS: VITAMIN B COMPLEX TAB PO SCH (07:51)
[2018-07-09] MEDS: BACLOFEN 10 MG TAB PO SCH (07:51)
[2018-07-09] MEDS: FOLIC ACID 1 MG TAB PO SCH (07:51)
[2018-07-09] MEDS: CHOLECALCIFEROL 1,000 UNITS TAB PO SCH (07:51)
[2018-07-09] MEDS: PANTOprazole 40 MG TAB PO SCH (07:51)
[2018-07-09] MEDS: MUPIROCIN 2% OINT 22 GM TUBE TOP SCH ×2 (07:52→11:45)
[2018-07-09] MEDS: FLUTICASONE/SALMETEROL 250/50 (ADVAIR) 14 PUFF/1 INHALER INH SCH (07:52)
[2018-07-09] MEDS: DRONABINOL 2.5 MG CAP PO SCH ×3 (07:52→11:46)
[2018-07-09] MEDS: METOPROLOL SUCC 25MG EXT REL TAB PO SCH (07:52)
[2018-07-09] MEDS: FLUTICASONE PROPIONATE NA SPR 16 GM BTL SCH (07:52)
[2018-07-09] MEDS: POLYETHYLENE (MIRALAX) 17 GM PACK PO SCH (07:52)
[2018-07-09] MEDS: IPRATROPIUM BROMIDE/ALBUTEROL respimat INH INH SCH (07:53)
[2018-07-09] MEDS: ACETAMINOPHEN 500 MG TAB PO PRN ×2 (07:59→11:44)
[2018-07-09] MEDS: DOCUSATE SODIUM 100 MG CAP PO PRN ×2 (07:59→11:44)
--- NOTE | 2018-07-09 10:37 | Progress Note ---
DATE: 07/09/2018 Chart reviewed, patient examined. ASSESSMENT AND SUBJECTIVE: The patient appears cheery and anxious to go home. She has had 1 bout of minimal hemoptysis last 48 hours. Her anticoagulation has been held. She clearly has still residual carcinoma bronchoscopically and do not think anticoagulation therapy would be torrez given the previous hemoptysis when on anticoagulant therapy. That obviously puts her at risk for embolic episodes, but nevertheless that appears to be the case. She is quite stable and I think she is stable enough to be discharged.
[2018-07-09] MEDS: levoFLOXacin 500 MG TAB PO SCH (11:45)
--- NOTE | 2018-07-09 14:55 | Surgery Progress Note ---
Date of Service July 09, 2018 Assessment & Plan (1) Pleural effusion: -pt. has pleurex catheter in place which we will continue to drain daily at time of discharge -we will call her for follow-up and CXR at time of d/c Subjective Pt. notes her breathing feels good. She has not had any hemoptysis in nearly 48 hours. Physical Exam Vital Signs (Past 24 Hours): Last Vital Signs Temp 36.4 C L 07/09/18 07:44 Pulse 104 H 07/09/18 14:42 Resp 16 07/09/18 14:42 BP 117/71 07/09/18 07:44 Pulse Ox 90 07/09/18 14:42 Constitutional: well developed and well nourished; no acute distress Respiratory: BS with only slight decrease at bases
--- NOTE | 2018-07-09 17:18 | Discharge Summary ---
Date of Service July 09, 2018 Admission HPI Per Admitting Provider Mrs. Preston is an unfortunate 68yo female with multiple medical problems to include CAD s/p stent, CHF, COPD, atrial tachycardia on Coumadin anticoagulation and metastatic small cell lung cancer. She presents today with hemoptysis and left sided chest pain. Patient reports feeling very tired all day. She has a chronic non-productive cough, began having hemoptysis at appx 21:00 last night. She had 3-4 episodes of bright red blood. Also with left side pain below the site of her PleurX catheter. She denies fevers, chills, sweats. Denies CP/palpitations/weight gain/edema. She has a mild headache and some nausea. Patient mildy hypoxic on arrival to ER, 88% on room air. Improvement with supplemental O2. No additional complaints at this time. ER Course: Benadryl, Solumedrol, NSS Principal Diagnosis Hemoptysis Discharge Exam Constitutional + cachectic Eyes PERRL, conjunctivae normal, anicteric sclerae ENMT external ear and nose normal, oropharynx normal Neck trachea midline, no thyromegaly Respiratory normal respiratory effort Auscultation: + crackles (At the left middle lung field) Cardiovascular RRR, no murmur, no edema Gastrointestinal (Abdomen) normal bowel sounds, soft, nontender, no hepatosplenomegaly Musculoskeletal Extremities: extremities normal to inspection; no cyanosis and no clubbing Skin no rashes, warm and dry Neurologic moves all extremities and awake; no focal motor deficits Psychiatric A+Ox3, euthymic affect Discharge Data Allergies Allergy/AdvReac Type Severity Reaction Status Date / Time meperidine Allergy Intermediate SWELLING Verified 07/10/18 19:51 atropine Allergy Unknown ? Verified 07/10/18 19:51 bee venom protein (honey bee) Allergy Unknown SWELLING Verified 07/10/18 19:51 cefaclor Allergy Unknown ? Verified 07/10/18 19:51 codeine Allergy Unknown ? Verified 07/10/18 19:51 diphenoxylate Allergy Unknown ? Verified 07/10/18 19:51 Gold Salts Allergy Unknown RASH Verified 07/10/18 19:51 iodine Allergy Unknown "D/T Verified 07/10/18 19:51 ALLERGY TO SHRIMP" midazolam Allergy Unknown MUSCLE Verified 07/10/18 19:51 SPAMS AND HALLUCINATIONS morphine Allergy Unknown SWELLING Verified 07/10/18 19:51 Penicillins Allergy Unknown ? Verified 07/10/18 19:51 propantheline Allergy Unknown ? Verified 07/10/18 19:51 shellfish derived Allergy Unknown ? Verified 07/10/18 19:51 shrimp Allergy Unknown THROAT Verified 07/10/18 19:51 SWELLS SHUT succinylcholine Allergy Unknown TOLD NEVER Verified 07/10/18 19:51 TO USE, NEICE SEVERELY ALLERGIC TO MEDS pentazocine [From [facility]] Allergy Hives Verified 07/11/18 03:19 walnut Allergy Swelling Verified 07/11/18 03:18 of Lip/Tongue/Throat adhesive AdvReac Mild Steri-strip Verified 07/10/18 19:51 - blisters dextromethorphan AdvReac Unknown HALLUCINATI Verified 07/11/18 03:07 ON doxylamine AdvReac Unknown HALLUCINATI Verified 07/11/18 03:07 ON lidocaine AdvReac Unknown LETHARGY Verified 07/11/18 03:07 propoxyphene AdvReac Unknown SWELLING Verified 07/11/18 03:07 pseudoephedrine AdvReac Unknown HALLUCINATI Verified 07/11/18 03:07 ON alcohol AdvReac Hallucinati Verified 07/11/18 03:08 ng Consultations 07/06/18 04:02 ED Decision to Admit Stat 07/06/18 06:47 Consult Pulmonology Routine Consult Thoracic Surgery Routine 07/08/18 16:40 Consult Health Information Management Routine Procedures Performed Operation Date: 07/07/18 11:00 Actual Procedures p Bronchoscopy(Bilateral) - Alireza Maldonado MD Ordered Studies 07/06/18 01:49 CT chest w con Urgent Hospital Course (1) Hemoptysis: Patient with small amount of hemoptysis, francois blood. Likely malignancy- related in the setting of being on anticoagulation for her afib vs. lymphangitic carcinomatosis vs. volume overload. - Bronch done on 07/07 with cytology was just brushings and not a biopsy in the setting of having hemoptysis this was not performed, but suspect recurrent bronchogenic carcinoma-cells negative for malignancy -Have been holding aspirin Coumadin-discussed with patient and pulmonology-will not restart anticoagulation or antiplatelet at this point as the risk of hemoptysis outweighs the benefit of stroke prevention with A. fib especially given her very poor overall prognosis and life expectancy -hgb stable and no more hemoptysis, can be discharged home (2) Primary small cell malignant neoplasm of lung, stage 4: Patient with extensive-stage small cell lung cancer, diagnosed February 2018 s/p 2 cycles of etoposide/cisplatin. Prior to initiation of cycle 3 she was admitted to the hospital for presumed CHF exacerbation. Further chemotherapy treatments were put on hold until patient medically optimized. Patient had a CT of the chest/abdomen and pelvis performed on 06/27/18 which was consistent with progression of disease, progressive bulky mediastinal adenopathy with increased size of the pleural based masses and nodules with mediastinal invasion. Possibility of lymphangitic carcinomatosis as well. No metastatic disease in the abdomen or pelvis. The decision to resume chemotherapy is yet to be determined. - Symptomatic management, pain and nausea control -She has an appointment with oncology this coming Wednesday to discuss any further treatment options -Discussed the option of palliative care consult which she had last month and was very upset with talking to them and does not want to again at this point (3) Severe protein-calorie malnutrition: Noted on admission. Is cachectic secondary to cancer and chemotherapy - Encourage PO intake when diet is advanced - Continue Dronabinol for appetite stimulation - Nausea control with Zofran and prochlorperazine (4) Hypothyroidism: Chronic. TSH=2.86 on 03/03/18. - Continue Synthroid (5) Atrial fibrillation: Currently in normal sinus rhythm. Usually anticoagulated on Coumadin which has been on hold for hemoptysis INR down to 1.0 - Continue metoprolol 25 mg daily -Permanently discontinue Coumadin in setting of hemoptysis (6) Asthma: Presently with adequate saturation on 2L NC. No respiratory distress. No wheezing. - Continue Advair - Continue Albuterol PRN (7) CAD (coronary artery disease): Stable. No CP. EKG without evidence of ischemia. - Hold ASA in setting of hemoptysis - Continue Metoprolol (8) GERD (gastroesophageal reflux disease): Chronic. Well-controlled on home medications. - Continue Ranitidine and Omeprazole daily (9) COPD (chronic obstructive pulmonary disease): Patient with history of COPD. Presently without respiratory distress or wheeze. Adequate oxygenation on 2L NC. - Continue Combivent - Continue Advair - Albuterol PRN (10) Tobacco use disorder: Patient continues to smoke appx 03/30 ppd. - Tobacco cessation counseling (11) Pleural effusion: Patient had PleurX catheter in the past for non-malignant pleural effusion which was eventually removed. She was admitted in April 2018 with respiratory distress and worsening pleural effusions, R >L. She had bedside US-guided thoracentesis performed on 05/13/[address] Steele in which 1350mL of rust colored fluid was drained. Patient had placement of left sided Pleur-X catheter on 05/23/[address] Steele. She has home nursing q M/W/F that comes for catheter drainage. She reports that the last 4-5 times the fluid was drained it was more bloody than usual. Pleur-X site is mildly tender with palpation. Patient follows with Dr. Steele outpatient, last seen on . - Wound care for dressing changes and catheter drainage Wednesday as she does it at home-output 250 mL's today - Monitor output (12) Hypoxia: Acute hypoxic respiratory failure Requiring 2 L nasal cannula continuously upon dc (13) Constipation: Severe constipation, she manually disimpacted herself here, now moving bowels regularly -continue MiraLAX twice daily (14) DVT prophylaxis: SCDs Disposition-improved, dc to home today Total Time Total Time Spent Total Time Spent (In Minutes): >30 min Total Time Includes: Examination of the Patient, Discharge Planning and Medication Reconciliation Discharge Plan Discharge Items Patient Disposition: Home - Home Health Services Reason For Visit: HEMOPTYSIS Discharge Diagnosis: Hemoptysis, Acute hypoxic respiratory failure Condition: Fair Discharge Goals: Decrease discomfort, Diagnostic testing, Learn about illness and Therapeutic intervention Activity: Resume your previous activity Bathing: No limitations Exercise/Sports: As tolerated Non-emergency contact: Primary Care Provider and Oncologist Call non-emergency contact if: you have any medication questions, your symptoms worsen and your temperature is above 101 Follow-up/Referrals: Xu Arthur MD [Primary Care Provider] - (Please call for an appointment within 1 week) Josh Bai [Physician] - (Keep appointment as scheduled for tomorrow ) Diet: Regular Addtl Provider Instructions: You were admitted with hemoptysis (coughing up blood). You had a bronchoscopy which should recurrent tumor in the left upper lobe of the lung. This was the source of your bleeding. You should STOP your coumadin and aspirin permanently. Please keep your appointment with Oncology tomorrow for follow up on your lung cancer. If you have recurrent hemoptysis, please return to the hospital. You also now need oxygen with walking. You should use 2 Liters of oxygen. Prescriptions: New levofloxacin 500 mg Tablet 500 mg PO DAILY@1100 Qty: 4 RF: 0 methylprednisolone 4 mg tablets,dose pack 4 mg PO DAILY Qty: 21 RF: 0 polyethylene glycol 3350 [Miralax] 17 gram Powder In Packet 17 g PO BID Qty: 60 RF: 0 Continued fluticasone propion-salmeterol [Advair Diskus] 250-50 mcg/dose Blister With Device 1 inh INHALATION Q12H RF: 0 omeprazole 40 mg Capsule,Delayed Release(Dr/Ec) 40 mg PO QAM RF: 0 baclofen 10 mg Tablet 10 mg PO BID RF: 0 nitroglycerin [Nitrostat] 0.4 mg Tablet, Sublingual 0.4 mg Sublingual DIRECTED PRN (Reason: Chest Pain) RF: 0 docusate sodium 100 mg Capsule 100 mg PO TID RF: 0 folic acid 1 mg Tablet 2 mg PO DAILY RF: 0 azelastine 137 mcg (0.1 %) Aerosol,Dawn 2 spray INTRANASAL DAILY RF: 0 albuterol sulfate [Ventolin HFA] 90 mcg/actuation Hfa Aerosol Inhaler 2 puff Inhalation QID PRN (Reason: Shortness Of Breath) RF: 0 fluticasone propionate [Flonase Allergy Relief] 50 mcg/actuation Dawn,Suspension 2 spray INTRANASAL QAM RF: 0 loratadine 10 mg Tablet 10 mg PO QAM RF: 0 levothyroxine 112 mcg Tablet 112 mcg PO QAM RF: 0 cholecalciferol (vitamin D3) [Vitamin D3] 2,000 unit Tablet 2,000 unit PO QAM RF: 0 vitamin B complex [B-Complex] Tablet 1 tab PO QAM RF: 0 albuterol sulfate 2.5 mg /3 mL (0.083 %) Solution For Nebulization 2.5 mg INHALATION QID PRN (Reason: cough/wheezing) RF: 0 dronabinol 5 mg capsule 5 mg PO TID RF: 0 prochlorperazine maleate 10 mg tablet 10 mg PO QID PRN (Reason: Nausea) RF: 0 diclofenac sodium [Voltaren] 1 % Gel 1 applic EXT QID Qty: 1 RF: 0 tramadol 50 mg tablet 50 mg PO Q6H PRN (Reason: Pain) RF: 0 zinc gluconate 30 mg Tablet 30 mg PO DAILY RF: 0 Combivent Respimat 20-100 mcg/actuation Mist 1 puff INHALATION BID RF: 0 ondansetron HCl 4 mg Tablet 4 mg PO Q4 PRN (Reason: Nausea) RF: 0 acetaminophen [Tylenol Extra Strength] 500 mg Tablet 500 mg PO Q4 PRN (Reason: Unknown) RF: 0 metoprolol succinate 25 mg Tablet Extended Release 24 Hr 25 mg PO DAILY RF: 0 B-complex with vitamin C [Super B Complex-Vitamin C] Tablet 1 tab PO DAILY RF: 0 ranitidine HCl 75 mg Tablet 75 mg PO BID PRN (Reason: Heartburn) RF: 0 magnesium 250 mg Tablet 500 mg PO DAILY RF: 0 amoxicillin 500 mg Capsule 2,000 mg PO UD PRN (Reason: Prophylaxis) RF: 0 nystatin 100,000 unit/mL Suspension 5 ml BUCCAL QID RF: 0 bwlgarfled-wrqjwrixyo-ksu-cod [id number] mg Capsule 1 cap PO Q4 PRN (Reason: Unknown) RF: 0 mupirocin 2 % Ointment 1 applic TOPICAL TID RF: 0 diclofenac sodium 1 % gel 4 g topical BID PRN (Reason: affected area) RF: 0 Changed ferrous sulfate 325 mg (65 mg iron) Tablet 325 mg PO BID Qty: 0 RF: 0 Discontinued warfarin 5 mg tablet 5 mg PO UD RF: 0 aspirin 81 mg Tablet,Delayed Release (Dr/Ec) 81 mg PO HS RF: 0 polyethylene glycol 3350 [Miralax] 17 gram/dose Powder 17 g PO Q OTHER DAY PRN (Reason: Constipation) RF: 0 Stand-Alone Forms: [facility] Discharge Orders: Discharge Order (Routine); Ordered 07/09/18 Ordered By: Christiane Colon Admission Data Admit Date/Time: 07/06/18 05:00 Attending Provider: Christiane Colon Admit Provider: Mary Jo Loyd Primary Care Provider: Xu Arthur Other Providers: Mary Jo Loyd ; Alireza Maldonado ; Damián Che ; Sarai Hernandez ; Jean Smith ; Lisa Jiang ; Walt Robertson ; Roselyn Livingston ; Norma Keenan ; Son Carlin ; Ivan Guzmán ; Al Russell ; Ricky Chu ; Scotty Fontenot ; Walt Steele Service: Telemetry Medical Other Interventions: Discharge Summary Assessment (RN) Last Done: 07/09/18 17:45 Pending Studies at Discharge: No DC Date/Time DO NOT enter until pt leaves facility: 07/09/18 18:56
== END 2018-07-09 18:56 | disposition home health service (06) | DRG 180 ==
LOC: ED 00:37 → SUATTDRO 05:00 → 2W 05:00

== ENCOUNTER 2018-07-10 18:21 | Inpatient (IN) ==
[2018-07-10] MEDS ORDERED: FAMOTIDINE 20MG/5ML IV PUSH IV STA (18:43)
[2018-07-10] MEDS ORDERED: METOCLOPRAMIDE HCL INJ 5 MG/ML 2 ML VIAL IV STA (18:43)
[2018-07-10] MEDS ORDERED: SODIUM CHLORIDE 0.9% 1000ML 1,000 ML IV SCH (18:45)
--- NOTE | 2018-07-10 19:03 | XRay Report ---
XR chest 1V portable CLINICAL HISTORY: Chest Pain dyspnea COMPARISON STUDY: 06/13/2018 FINDINGS: Unchanged position of a left basilar chest drainage tube. There is small residual left effu jeff compared to the prior study at the left costophrenic angle. Trace pleural fluid right base also unchanged. Mild increase in density left hemithorax compared to the right which is suggestive of a developing/pr ogressive pneumonitis/effusion. Central catheter remains within the right atrium. No evidence for pneumothorax. Emphysematous and chronic granulomatous changes noted. IMPRESSION: 1. Slight increase in density left hemithorax compared to the right. 2. This is suggestive of a increase in volume of a left pleural effusion versus superimposed atelecta tic/pneumonitis type change. 3. Study is otherwise unchanged The above report was generated using voice recognition software. It may contain grammatical, syntax or spelling errors. Electronically signed by: Zen Abel M.D. 07/10/2018 7:02 PM
[2018-07-10 20:00] LABS: Basophils # (auto) 0.03 K/uL (0-0.2); Basophils % (auto) 0.2 %; Eosinophils # (auto) 0.01 K/uL (0-0.5); Eosinophils % (auto) 0.1 %; Hematocrit (blood only) 37.4 % (37-47); Hemoglobin 12.5 g/dL (12.0-16.0); Immature Granulocytes # (auto) 0.06 K/uL (0.00-0.02); Immature Granulocytes % (auto) 0.4 %; Lymphocytes # (auto) 1.09 K/uL (1.2-3.4); Lymphocytes % (auto) 7.4 %; Mean Corpuscular Hgb Conc 33.4 g/dL (32-36); Mean Corpuscular Volume 102.2 fL (80-100); Mean Platelet Volume 9.9 fL (7.4-10.4); Monocytes # (auto) 1.32 K/uL (0.11-0.59); Monocytes % (auto) 8.9 %; Neutrophils # (auto) 12.24 K/uL (1.4-6.5); Platelet Count 278 K/uL (130-400); RDW Coefficient of Variation 15.6 % (11.5-14.5); RDW Standard Deviation 58.6 fL (36.4-46.3); Red Blood Count 3.66 M/uL (4.2-5.4); White Blood Count 14.75 K/uL (4.8-10.8)
[2018-07-10 20:13] LABS: INR 1.1 (0.9-1.1); Prothrombin Time 10.8 Seconds (9.0-12.0)
[2018-07-10 20:16] LABS: Alanine Aminotransferase 22 U/L (12-78); Aspartate Aminotransferase 20 U/L (15-37); BUN Creatinine Ratio 56.9 (10-20); Bilirubin Direct 0.1 mg/dl (0-0.2); Blood Urea Nitrogen 17 mg/dl (7-18); Calcium 8.8 mg/dl (8.5-10.1); Carbon Dioxide 34 mmol/L (21-32); Chloride 97 mmol/L (98-107); Creatinine Clr Calc Pharmacy 126.5 ml/min; Est GFR (African American) 135.8; Est GFR (Non-African American) 117.2; Glucose 129 mg/dl (70-99); Magnesium 1.7 mg/dl (1.8-2.4); Potassium 3.6 mmol/L (3.5-5.1); Sodium 134 mmol/L (136-145)
[2018-07-10 20:19] LABS: Albumin Globulin Ratio 0.7 (0.9-2); Alkaline Phosphatase 93 U/L (45-117); Bilirubin,Total 0.4 mg/dl (0.2-1); Globulin 4.3 gm/dl (2.5-4.0); Phosphorus 3.3 mg/dl (2.5-4.9); Total Protein 7.3 gm/dl (6.4-8.2); Troponin I < 0.015 ng/ml (0-0.045)
[2018-07-10] MEDS ORDERED: MAGNESIUM SULFATE / D5W 1 GM/100 ML BAG IV ONE (20:20)
[2018-07-10] MEDS ORDERED: OPTIRAY 320 125ml IV PRN (21:05)
--- NOTE | 2018-07-10 21:18 | CT Scan Report ---
CT angio chest PE protocol CT DOSE: 528.25 mGy.cm HISTORY: Chest pain. Dyspnea. PE TECHNIQUE: Multiaxial CT images of the chest were performed following the intravenous administration of contrast to evaluate the pulmonary arteries. Maximal intensity projection images were also obtaine d. A dose lowering technique was utilized adhering to the principles of ALARA. COMPARISON STUDY: 07/06/2018 FINDINGS: Pulmonary vasculature enhances appropriately. There are no major filling defects. There are findings of progressive atelectasis and consolidation the left upper lobe. This includes a loculated effusion components which are also progressive involving the left upper lobe. These changes are considered stable to left base. Postoperative changes in the left subdiaphragmatic region are ag ain noted and are stable. Graft extent hernia is stable. The appearance of the right lung including mass pathology remains stable. Diffuse bony metastatic rashida nge persists. All remaining components of the study are unchanged. The bulky and necrotic mediastinal adenopathy is stable and/or slightly progressive. Left basilar pleural drain is unchanged in location. IMPRESSION: 1. No evidence of pulmonary embolus. 2. Progressive consolidative and atelectatic change of the left upper lobe with associated somewhat p rogressive loculated pleural fluid components. 3. Findings of widespread metastatic disease, parenchymal nodularity/mass pathology, as well as adeno randa is unchanged. 4. Stable postoperative changes left diaphragmatic region with unchanged position of the left basilar pleural drain. 5. Diffuse bony metastatic changes considered stable. The above report was generated using voice recognition software. It may contain grammatical, syntax or spelling errors. Electronically signed by: Zen Abel M.D. 07/10/2018 9:16 PM
--- NOTE | 2018-07-10 21:21 | CT Scan Report ---
CT abd pelvis IV con only CT DOSE: HISTORY: Pain. Nausea. abd pain n/v metastatic cancer TECHNIQUE: Multiaxial CT images of the abdomen and pelvis were performed following the use of intrave nous contrast. A dose lowering technique was utilized adhering to the principles of ALARA. COMPARISON STUDY: 06/27/2018 FINDINGS: Right pleural effusion is unchanged. There is a small left pleural effusion with left basil ar drainage catheter considered unaltered. There is a small hiatal hernia. Findings of hepatic metastatic disease are present. Kidneys are considered negative for hydronephrosi s. Bowel pattern is considered nonobstructive. There is an increased fecal load within the rectosigmoid. There is mild reactive small bowel ileus. Widespread bony metastatic change is again noted. IMPRESSION: 1. No major acute abnormality of the abdomen or pelvis. 2. Metastatic disease most likely involving components of the liver. 3. Nonobstructive bowel pattern. 4. Increased colonic fecal load 5. Widespread bony metastatic change unaltered from the prior study. The above report was generated using voice recognition software. It may contain grammatical, syntax or spelling errors. Electronically signed by: Zen Abel M.D. 07/10/2018 9:19 PM
[2018-07-10 21:24] LABS: Appearance Urine Clear (Clear); Bacteria Urine Automated Negative (Negative); Bilirubin Urine Negative (Negative); Blood Urine Negative (Negative); Color Urine Yellow; Epithelial Cell Urine Auto 20-30 /lpf (0-5); Glucose Urine UA Negative (Negative); Ketones Urine Negative (Negative); Leukocyte Esterase Urine 1+ (Negative); Nitrite Urine Negative (Negative); Protein Urine Negative (Negative); RBC Urine Automated 0-4 /hpf (0-4); Specific Gravity Urine 1.018 (1.000-1.030); Urobilinogen Urine Negative (Negative)
[2018-07-10] MEDS ORDERED: PROCHLORPERAZINE 2 ML IV ONE (22:29)
[2018-07-10] MEDS ORDERED: ONDANSETRON INJ 2 MG/ML 2 ML VIAL IV STA (23:41)
--- NOTE | 2018-07-11 01:12 | Emergency Department Note ---
Entered by Haley Redmond acting as a scribe for History of Present Illness General Chief complaint: Vomiting Stated complaint: DISCHARGED YESTERDAY,VOMITING,DIZZY,WEAK Time Seen by Provider: 07/10/18 18:35 Source: patient and friends Mode of arrival: ambulatory Limitations: no limitations History of Present Illness Provider complaint: Vomiting Onset (ago): hour(s) (around 1500 today) Location: mouth Radiation: non-radiation Pain Consistency: + other (persistent) Maximum Pain Intensity: 3 Quality: + other (vomiting yellow mucus/bile) Relieved By: + none Associated symptoms: + nausea/vomiting, + weakness and + other (Additional symptoms: arm pain, dizziness, dehydration. Denies: diarrhea, hemoptysis) Treatments prior to arrival: other (Marinol, Tramadol) The patient is a 68 year old female with a history of COPD, CHF, stage 4 primary small cell lung cancer, Hodgkin lymphoma, hypothyroidism, atrial fibrillation, hyperlipidemia, GERD, diabetes, an VA, a heart artery stent, and anxiety who presents to the Emergency Room with complaints of persistent vomiting starting around 1500 today. The patient reports that she left the hospital yesterday for hemoptysis and that she felt well and asymptomatic upon discharge. However, she states that she woke up today feeling nauseated, and she adds that she also had pain in her arm. She notes that she took Marinol and Tramadol for her symptoms with no relief. The patient reports that she became dizzy and weak around 1400 and took another dose of Marinol. Around 1500, she states that she started vomiting yellow mucus/bile. She notes that she has vomited around 16 oz thus far and vomited up a dose of Zofran. The patient reports that she subsequently called her home health nurse about her symptoms, who comes to her home every other day to drain her catheter. Her nurse reportedly referred the patient to the ED. The patient further complains of dehydration, but denies any diarrhea an d recurrence of hemoptysis. Per friend, the patient had cancer treatment in March but stopped because it was too intense. She states that the patient also had a bronchoscopy on July 07. The patient notes that she does not take a water pill. Home Medications Home Medications Medication Instructions Recorded Confirmed Type albuterol sulfate [Ventolin HFA] 2 puff INHALATION QID PRN 12/22/17 07/10/18 History azelastine 2 spray INTRANASAL DAILY 12/22/17 07/10/18 History baclofen 10 mg PO BID 12/22/17 07/10/18 History cholecalciferol (vitamin D3) 2,000 unit PO QAM 12/22/17 07/10/18 History [Vitamin D3] docusate sodium 100 mg PO TID 12/22/17 07/10/18 History fluticasone propion-salmeterol 1 inh INHALATION Q12H 12/22/17 07/10/18 History [Advair Diskus] fluticasone propionate [Flonase 2 spray INTRANASAL QAM 12/22/17 07/10/18 History Allergy Relief] folic acid 2 mg PO DAILY 12/22/17 07/10/18 History levothyroxine 112 mcg PO QAM 12/22/17 07/10/18 History loratadine 10 mg PO QAM 12/22/17 07/10/18 History nitroglycerin [Nitrostat] 0.4 mg SUBLINGUAL DIRECTED PRN 12/22/17 07/10/18 History omeprazole 40 mg PO QAM 12/22/17 07/10/18 History vitamin B complex [B-Complex] 1 tab PO QAM 02/22/18 07/10/18 History albuterol sulfate 2.5 mg INHALATION QID PRN 05/09/18 07/10/18 History dronabinol 5 mg PO TID 05/09/18 07/10/18 History prochlorperazine maleate 10 mg PO QID PRN 05/09/18 07/10/18 History diclofenac sodium [Voltaren] 1 applic EXT QID #1 tube 05/27/18 07/10/18 Rx B-complex with vitamin C [Super B 1 tab PO DAILY 07/06/18 07/10/18 History Complex-Vitamin C] Combivent Respimat 1 puff INHALATION BID 07/06/18 07/10/18 History acetaminophen [Tylenol Extra 500 mg PO Q4 PRN 07/06/18 07/10/18 History Strength] amoxicillin 2,000 mg PO UD PRN 07/06/18 07/10/18 History bghhujdzzb-rysstapzex-yrz-cod 1 cap PO Q4 PRN 07/06/18 07/10/18 History diclofenac sodium 4 g TOPICAL BID PRN 07/06/18 07/10/18 History magnesium 500 mg PO DAILY 07/06/18 07/10/18 History metoprolol succinate 25 mg PO DAILY 07/06/18 07/10/18 History mupirocin 1 applic TOPICAL TID 07/06/18 07/10/18 History nystatin 5 ml BUCCAL QID 07/06/18 07/10/18 History ondansetron HCl 4 mg PO Q4 PRN 07/06/18 07/10/18 History ranitidine HCl 75 mg PO BID PRN 07/06/18 07/10/18 History tramadol 50 mg PO Q6H PRN 07/06/18 07/10/18 History zinc gluconate 30 mg PO DAILY 07/06/18 07/10/18 History ferrous sulfate 325 mg PO BID #0 tab 07/09/18 07/10/18 Rx levofloxacin 500 mg PO DAILY@1100 #4 tab 07/09/18 07/10/18 Rx methylprednisolone 4 mg PO DAILY #21 ea 07/09/18 07/10/18 Rx polyethylene glycol 3350 [Miralax] 17 g PO BID #60 ea 07/09/18 07/10/18 Rx Allergies Allergy/AdvReac Type Severity Reaction Status Date / Time meperidine Allergy Intermediate SWELLING Verified 07/10/18 19:51 atropine Allergy Unknown ? Verified 07/10/18 19:51 bee venom protein (honey bee) Allergy Unknown SWELLING Verified 07/10/18 19:51 cefaclor Allergy Unknown ? Verified 07/10/18 19:51 codeine Allergy Unknown ? Verified 07/10/18 19:51 diphenoxylate Allergy Unknown ? Verified 07/10/18 19:51 Gold Salts Allergy Unknown RASH Verified 07/10/18 19:51 iodine Allergy Unknown "D/T Verified 07/10/18 19:51 ALLERGY TO SHRIMP" midazolam Allergy Unknown MUSCLE Verified 07/10/18 19:51 SPAMS AND HALLUCINATIONS morphine Allergy Unknown SWELLING Verified 07/10/18 19:51 Penicillins Allergy Unknown ? Verified 07/10/18 19:51 propantheline Allergy Unknown ? Verified 07/10/18 19:51 shellfish derived Allergy Unknown ? Verified 07/10/18 19:51 shrimp Allergy Unknown THROAT Verified 07/10/18 19:51 SWELLS SHUT succinylcholine Allergy Unknown TOLD NEVER Verified 07/10/18 19:51 TO USE, NEICE SEVERELY ALLERGIC TO MEDS pentazocine [From [place]] Allergy Hives Verified 07/11/18 03:19 walnut Allergy Swelling Verified 07/11/18 03:18 of Lip/Tongue/Throat adhesive AdvReac Mild Steri-strip Verified 07/10/18 19:51 - blisters dextromethorphan AdvReac Unknown HALLUCINATI Verified 07/11/18 03:07 ON doxylamine AdvReac Unknown HALLUCINATI Verified 07/11/18 03:07 ON lidocaine AdvReac Unknown LETHARGY Verified 07/11/18 03:07 propoxyphene AdvReac Unknown SWELLING Verified 07/11/18 03:07 pseudoephedrine AdvReac Unknown HALLUCINATI Verified 07/11/18 03:07 ON alcohol AdvReac Hallucinati Verified 07/11/18 03:08 ng Past Med/Surg History Medical History COPD (chronic obstructive pulmonary disease) Hemoptysis (Acute) Primary small cell malignant neoplasm of lung, stage 4 Acute on chronic diastolic (congestive) heart failure Acute respiratory failure with hypoxia and hypercapnia Hypothyroidism Atrial fibrillation HLD (hyperlipidemia) Asthma CAD (coronary artery disease) Valvular heart disease Macrocytosis without anemia GERD (gastroesophageal reflux disease) Anxiety DM type 2 (diabetes mellitus, type 2) Hodgkin lymphoma Tobacco use disorder Acute myocardial infarction Afib Anxiety Atrial ectopic tachycardia CAD (coronary artery disease) CHF (congestive heart failure) COPD (chronic obstructive pulmonary disease) GERD (gastroesophageal reflux disease) Hx of Hodgkins lymphoma Hyponatremia Hypothyroid Pulmonary hemorrhage Upper GI bleed Surgical History Hx of cholecystectomy Hx of heart artery stent Hx of splenectomy S/P bronchoscopy with biopsy EBUS/harmony bronch on 02/24/2018. 8.0ETT. MAC 3, grade 1 view. Patient reintubated postextubation (while still in operating room) for what appeared to be CO2 retention. Please see record for full details. Family History Sister Heart attack Other Family history non-contributory Social History Preferred Language: Mozambican Communication Ability: Effective Production Dispatcher Required: No Beliefs That Will Affect Care: None marital status: Current Living Situation: Spouse current occupational status: retired Feels Safe at Home: Yes Safety Concerns: Feels Safe At This Time Smoking Status: Current every day smoker Hx Alcohol Use: No Hx Substance Use: No Review of Systems See HPI for pertinent positives & negatives. and A total of 10 systems reviewed and were otherwise negative Physical Exam Vital Signs Vital Signs - 24 hr 07/10/18 18:27 07/10/18 19:13 07/10/18 21:13 Temperature 37.0 C Temperature Source Oral Sepsis Recent Fever Within 48 Hours No Sepsis New/Unexplained Change in Mental Status No Sepsis Action Taken by Nursing No Action Required Pulse Rate 113 H 108 H Pulse Rate [Apical] 105 H Pulse Rhythm Regular Regular Pulse Rhythm [Apical] Pulse Strength Normal Pulse Strength [Apical] Respiratory Rate 20 20 18 Respiratory Effort / Characteristics Non-Labored Spontaneous Respiratory Depth Normal Respiratory Pattern Regular Blood Pressure 113/63 Blood Pressure [Right Arm] 140/78 Blood Pressure Mean 79 Blood Pressure Mean [Right Arm] 98 Blood Pressure Position Sitting Blood Pressure Position [Right Arm] Lying Pulse Oximetry 89 L 95 99 Oxygen Delivery Method Room Air Nasal Cannula Nasal Cannula Oxygen Flow Rate 2 3 07/11/18 02:17 07/11/18 03:27 Temperature 36.9 C Temperature Source Oral Sepsis Recent Fever Within 48 Hours Sepsis New/Unexplained Change in Mental Status Sepsis Action Taken by Nursing Pulse Rate Pulse Rate [Apical] 100 H 105 H Pulse Rhythm Pulse Rhythm [Apical] Regular Pulse Strength Pulse Strength [Apical] Normal Respiratory Rate 18 16 Respiratory Effort / Characteristics Non-Labored Spontaneous Non-Labored Spontaneous Respiratory Depth Normal Normal Respiratory Pattern Regular Blood Pressure Blood Pressure [Right Arm] 114/72 125/64 Blood Pressure Mean Blood Pressure Mean [Right Arm] 86 84 Blood Pressure Position Blood Pressure Position [Right Arm] Lying Pulse Oximetry 96 94 Oxygen Delivery Method Nasal Cannula Nasal Cannula Oxygen Flow Rate 3 2 GENERAL: Awake, alert, chronically ill and cachectic-appearing, in no distress HENT: Normocephalic, atraumatic. Oropharynx with dry mucous membranes and otherwise unremarkable. EYES: Normal conjunctiva. Sclera non-icteric. NECK: Supple. No nuchal rigidity. FROM. No JVD. RESPIRATORY: Diminished breath sounds to the left base, otherwise clear. Left lateral chest wall pleurx catheter site is clean, dry, and intact. CARDIAC: Regular rate, normal rhythm. Extremities warm and well perfused. Pulses equal. ABDOMEN: Soft, non-distended. No tenderness to palpation. No rebound or guarding. No masses. RECTAL: Deferred. MUSCULOSKELETAL: Chest examination reveals no tenderness. The back is symmetrical on inspection without obvious abnormality. There is no CVA tenderness to palpation. No joint edema. LOWER EXTREMITIES: Calves are equal size bilaterally and non-tender. No edema. No discoloration. NEURO: Normal sensorium. No sensory or motor deficits noted. SKIN: Mild pallor. No rash or jaundice noted. Course 1838: The patient was evaluated in room A4B. A complete history and physical exam was performed. 2215: I checked on the patient and updated her on her results. 2228: Upon reevaluation, the patient is resting. I discussed the findings and the treatment plan with the patient. She expresses agreement and understanding. [facility] The patient will be evaluated for further management. Consultations Consultation #1: [facility] The patient will be evaluated for further management. Time: 22:28 Administered Medications Albuterol (Duoneb) 3 ml NEB Q4R SAPNA Stop: 08/10/18 03:59 Last Admin: 07/11/18 03:38 Dose: Not Given Documented by: [id number] Sodium Chloride (Nss 1000ml) 1,000 mls @ 80 mls/hr IV .[id number] SAPNA Stop: 08/10/18 02:59 Last Admin: 07/11/18 03:17 Dose: 80 mls/hr Documented by: [id number] Ioversol (Optiray 320 125ml) 120 ml IV ONCE PRN PRN Reason: Interaction Checking Stop: 07/14/18 21:04 Last Admin: 07/10/18 21:07 Dose: 120 ml Documented by: [id number] Discontinued Medications Famotidine (Pepcid 20mg Iv Push) 20 mg IV ONE STA Stop: 07/10/18 18:44 Last Admin: 07/10/18 19:36 Dose: 20 mg Documented by: [id number] Sodium Chloride (Nss 1000ml) 1,000 mls @ 999 mls/hr IV .[id number] SAPNA Stop: 07/10/18 19:45 Last Infusion: 07/10/18 21:12 Dose: 0 mls/hr Documented by: [id number] Admin: 07/10/18 19:37 Dose: 999 mls/hr Documented by: [id number] Magnesium Sulfate/Dextrose (Magnesium Sulfate / D5w) 1 gm in 100 mls @ 100 mls/hr IV ONE ONE Stop: 07/10/18 21:19 Last Infusion: 07/10/18 22:43 Dose: 0 mls/hr Documented by: [id number] Admin: 07/10/18 21:12 Dose: 100 mls/hr Documented by: [id number] Prochlorperazine (Compazine) 2 mls @ 1 mls/min IV ONE ONE Stop: 07/10/18 22:30 Last Admin: 07/10/18 22:38 Dose: 1 mls/min Documented by: [id number] Metoclopramide HCl (Reglan) 10 mg IV NOW STA Stop: 07/10/18 18:44 Last Admin: 07/10/18 19:37 Dose: 10 mg Documented by: [id number] Ondansetron HCl (Zofran) 4 mg IV NOW STA Stop: 07/10/18 23:42 Last Admin: 07/11/18 00:02 Dose: 4 mg Documented by: [id number] Medical Decision Making Differential Diagnosis Differential diagnosis: Etiologies such as appendicitis, diverticulitis, PUD, biliary pathology, UTI, pancreatitis, obstruction, mesenteric ischemia, aortic pathology, infections, inflammatory bowel disease, renal colic, as well as others were entertained. Medical Records Attestation: I reviewed the patient's medical records. Home Medications Current Medication List: was personally reviewed by me Laboratory Data Attestation: I reviewed the patient's lab results. Result diagrams: 07/10/18 19:45 07/10/18 19:45 Lab Results 07/10/18 07/10/18 07/10/18 Range/Units 19:45 19:45 19:45 WBC 14.75 H (4.8-10.8) K/uL RBC 3.66 L (4.2-5.4) M/uL Hgb 12.5 (12.0-16.0) g/dL Hct 37.4 (37-47) % MCV 102.2 H (80-100) fL MCH 34.2 H (25-34) pg MCHC 33.4 (32-36) g/dL RDW Std Deviation 58.6 H (36.4-46.3) fL RDW Coeff of [place] 15.6 H (11.5-14.5) % Plt Count 278 (130-400) K/uL MPV 9.9 (7.4-10.4) fL Immature Gran % (Auto) 0.4 % Neut % (Auto) 83.0 % Lymph % (Auto) 7.4 % Pope % (Auto) 8.9 % Eos % (Auto) 0.1 % Baso % (Auto) 0.2 % Immature Gran # (Auto) 0.06 H (0.00-0.02) K/uL Neut # (Auto) 12.24 H (1.4-6.5) K/uL Lymph # (Auto) 1.09 L (1.2-3.4) K/uL Pope # (Auto) 1.32 H (0.11-0.59) K/uL Eos # (Auto) 0.01 (0-0.5) K/uL Baso # (Auto) 0.03 (0-0.2) K/uL PT 10.8 (9.0-12.0) Seconds INR 1.1 (0.9-1.1) Sodium 134 L (136-145) mmol/L Potassium 3.6 (3.5-5.1) mmol/L Chloride 97 L (98-107) mmol/L Carbon Dioxide 34 H (21-32) mmol/L Anion Gap 3.0 (3-11) BUN 17 (7-18) mg/dl Creatinine 0.31 L (0.6-1.2) mg/dl Est Cr Clr Drug Dosing 126.5 ml/min Est GFR ( Amer) 135.8 Est GFR (Non-Af Amer) 117.2 BUN/Creatinine Ratio 56.9 H (10-20) Glucose 129 H (70-99) mg/dl Calcium 8.8 (8.5-10.1) mg/dl Phosphorus 3.3 (2.5-4.9) mg/dl Magnesium 1.7 L (1.8-2.4) mg/dl Total Bilirubin 0.4 (0.2-1) mg/dl Direct Bilirubin 0.1 (0-0.2) mg/dl AST 20 (15-37) U/L ALT 22 (12-78) U/L Alkaline Phosphatase 93 (45-117) U/L Troponin I < 0.015 (0-0.045) ng/ml Total Protein 7.3 (6.4-8.2) gm/dl Albumin 3.0 L (3.4-5.0) gm/dl Globulin 4.3 H (2.5-4.0) gm/dl Albumin/Globulin Ratio 0.7 L (0.9-2) Lipase 60 L (73-393) U/L Urine Color Urine Appearance (Clear) Urine pH (4.5-7.5) Ur Specific [place] (1.000-1.030) Urine Protein (Negative) Urine Glucose (UA) (Negative) Urine Ketones (Negative) Urine Blood (Negative) Urine Nitrite (Negative) Urine Bilirubin (Negative) Urine Urobilinogen (Negative) Ur Leukocyte Esterase (Negative) Urine WBC (Auto) (0-5) /hpf Urine RBC (Auto) (0-4) /hpf U Hyaline Cast (Auto) (0-5) /lpf U Epithel Cells (Auto) (0-5) /lpf Urine Bacteria (Auto) (Negative) 07/10/18 Range/Units 19:45 WBC (4.8-10.8) K/uL RBC (4.2-5.4) M/uL Hgb (12.0-16.0) g/dL Hct (37-47) % MCV (80-100) fL MCH (25-34) pg MCHC (32-36) g/dL RDW Std Deviation (36.4-46.3) fL RDW Coeff of [place] (11.5-14.5) % Plt Count (130-400) K/uL MPV (7.4-10.4) fL Immature Gran % (Auto) % Neut % (Auto) % Lymph % (Auto) % Pope % (Auto) % Eos % (Auto) % Baso % (Auto) % Immature Gran # (Auto) (0.00-0.02) K/uL Neut # (Auto) (1.4-6.5) K/uL Lymph # (Auto) (1.2-3.4) K/uL Pope # (Auto) (0.11-0.59) K/uL Eos # (Auto) (0-0.5) K/uL Baso # (Auto) (0-0.2) K/uL PT (9.0-12.0) Seconds INR (0.9-1.1) Sodium (136-145) mmol/L Potassium (3.5-5.1) mmol/L Chloride (98-107) mmol/L Carbon Dioxide (21-32) mmol/L Anion Gap (3-11) BUN (7-18) mg/dl Creatinine (0.6-1.2) mg/dl Est Cr Clr Drug Dosing ml/min Est GFR ( Amer) Est GFR (Non-Af Amer) BUN/Creatinine Ratio (10-20) Glucose (70-99) mg/dl Calcium (8.5-10.1) mg/dl Phosphorus (2.5-4.9) mg/dl Magnesium (1.8-2.4) mg/dl Total Bilirubin (0.2-1) mg/dl Direct Bilirubin (0-0.2) mg/dl AST (15-37) U/L ALT (12-78) U/L Alkaline Phosphatase (45-117) U/L Troponin I (0-0.045) ng/ml Total Protein (6.4-8.2) gm/dl Albumin (3.4-5.0) gm/dl Globulin (2.5-4.0) gm/dl Albumin/Globulin Ratio (0.9-2) Lipase (73-393) U/L Urine Color Yellow Urine Appearance Clear (Clear) Urine pH 8.0 H (4.5-7.5) Ur Specific [place] 1.018 (1.000-1.030) Urine Protein Negative (Negative) Urine Glucose (UA) Negative (Negative) Urine Ketones Negative (Negative) Urine Blood Negative (Negative) Urine Nitrite Negative (Negative) Urine Bilirubin Negative (Negative) Urine Urobilinogen Negative (Negative) Ur Leukocyte Esterase 1+ H (Negative) Urine WBC (Auto) 5-10 H (0-5) /hpf Urine RBC (Auto) 0-4 (0-4) /hpf U Hyaline Cast (Auto) 1-5 (0-5) /lpf U Epithel Cells (Auto) 20-30 H (0-5) /lpf Urine Bacteria (Auto) Negative (Negative) Imaging Data Radiologist's Impression: Radiology results as stated below per my review and the radiologist's interpretation: XR chest 1V portable CLINICAL HISTORY: Chest Pain dyspnea COMPARISON STUDY: 06/13/2018 FINDINGS: Unchanged position of a left basilar chest drainage tube. There is small residual left effusion compared to the prior study at the left costophrenic angle. Trace pleural fluid right base also unchanged. Mild increase in density left hemithorax compared to the right which is suggestive of a developing/progressive pneumonitis/effusion. Central catheter remains within the right atrium. No evidence for pneumothorax. Emphysematous and chronic granulomatous changes noted. IMPRESSION: 1. Slight increase in density left hemithorax compared to the right. 2. This is suggestive of a increase in volume of a left pleural effusion versus superimposed atelectatic/pneumonitis type change. 3. Study is otherwise unchanged The above report was generated using voice recognition software. It may contain grammatical, syntax or spelling errors. Electronically signed by: Zen Abel M.D. 07/10/2018 7:[address] abd pelvis IV con only CT DOSE: HISTORY: Pain. Nausea. abd pain n/v metastatic cancer TECHNIQUE: Multiaxial CT images of the abdomen and pelvis were performed following the use of intravenous contrast. A dose lowering technique was utilized adhering to the principles of ALARA. COMPARISON STUDY: 06/27/2018 FINDINGS: Right pleural effusion is unchanged. There is a small left pleural effusion with left basilar drainage catheter considered unaltered. There is a small hiatal hernia. Findings of hepatic metastatic disease are present. Kidneys are considered negative for hydronephrosis. Bowel pattern is considered nonobstructive. There is an increased fecal load within the rectosigmoid. There is mild reactive small bowel ileus. Widespread bony metastatic change is again noted. IMPRESSION: 1. No major acute abnormality of the abdomen or pelvis. 2. Metastatic disease most likely involving components of the liver. 3. Nonobstructive bowel pattern. 4. Increased colonic fecal load 5. Widespread bony metastatic change unaltered from the prior study. The above report was generated using voice recognition software. It may contain grammatical, syntax or spelling errors. Electronically signed by: Zen Abel M.D. 07/10/2018 9:[address] angio chest PE protocol CT DOSE: 528.25 mGy.cm HISTORY: Chest pain. Dyspnea. PE TECHNIQUE: Multiaxial CT images of the chest were performed following the intravenous administration of contrast to evaluate the pulmonary arteries. Maximal intensity projection images were also obtained. A dose lowering technique was utilized adhering to the principles of ALARA. COMPARISON STUDY: 07/06/2018 FINDINGS: Pulmonary vasculature enhances appropriately. There are no major filling defects. There are findings of progressive atelectasis and consolidation the left upper lobe. This includes a loculated effusion components which are also progressive involving the left upper lobe. These changes are considered stable to left base. Postoperative changes in the left subdiaphragmatic region are again noted and are stable. Graft extent hernia is stable. The appearance of the right lung including mass pathology remains stable. Diffuse bony metastatic change persists. All remaining components of the study are unchanged. The bulky and necrotic mediastinal adenopathy is stable and/or slightly progressive. Left basilar pleural drain is unchanged in location. IMPRESSION: 1. No evidence of pulmonary embolus. 2. Progressive consolidative and atelectatic change of the left upper lobe with associated somewhat progressive loculated pleural fluid components. 3. Findings of widespread metastatic disease, parenchymal nodularity/mass pathology, as well as adenopathy is unchanged. 4. Stable postoperative changes left diaphragmatic region with unchanged posit ion of the left basilar pleural drain. 5. Diffuse bony metastatic changes considered stable. The above report was generated using voice recognition software. It may contain grammatical, syntax or spelling errors. Electronically signed by: Zen Abel M.D. 07/10/2018 9:16 PM ECG Data Attestation: I personally reviewed and interpreted this ECG as follows: Indication: vomiting Rate (beats per minute): 101 Rhythm: sinus tachycardia Findings: + other (PACs) and + LBBB; no acute ischemic change Comparison ECG Date: from (07/09/18) Change: no significant change Blood Pressure Blood Pressure Findings: Normal blood pressure MDM Narrative The patient is a pleasant 68-year-old woman with a complicated past medical history of stage IV SCLC with extensive metastatic disease, CAD status post PCI, CHF, COPD, atrial tachycardia previously on on Coumadin resents emergency department with persistent nausea vomiting and inability to tolerate oral intake since this morning in the setting of being discharged yesterday after admission for hemoptysis believed to be related to her metastatic lung cancer per hpi. On arrival patient is chronically ill-appearing in no acute distress, afebrile stable vital signs. Patient appears clinically dry, cachectic. She has mild epigastric discomfort without discrete tenderness. EKG demonstrates baseline left bundle branch block without overt ischemia. Chest x-ray with slight increased volume of left pleural effusion, which was further characterized on CT of the chest. Otherwise CT of the chest and abdomen pelvis demonstrates the patient's extensive metastatic disease. WBC 14, nonspecific. H/H and platelets within normal limits. Chemistry without acidosis. Magnesium 1.7 with repletion provided. LFTs unremarkable. Troponin negative. UA with 20-30 epithelial cells and without convincing evidence of infection at this time. Patient feeling some improvement after IV fluid hydration, Reglan, Pepcid however still uncomfortable with persistent nausea which she said she did not have on her discharge yesterday. Review the patient's results with her and how her symptoms likely reflect her severe disease. Given the patient still is symptomatic despite treatment reasonable to admit the patient for further supportive care as well as likely further palliative care consultation. Case was discussed with Dr. Loyd, [facility] hospitalist, who will evaluate the patient for admission. Impression & Plan Metastatic disease, Nausea & vomiting Discharge Plan Visit Data *Final* Discharge Date/Time: 07/11/18 02:18 Chief Complaint: Vomiting Stated Complaint: DISCHARGED YESTERDAY,VOMITING,DIZZY,WEAK ED Provider: Willi Ortiz Discharge Problem: Metastatic disease, Nausea & vomiting Patient Disposition: Admitted As Inpatient Discharge Instructions Interventions: ED Discharge Assessment Last Done: 07/11/18 02:18 Discharge Problem: Nausea & vomiting Qualifiers: Vomiting type: unspecified Vomiting Intractability: intractable Qualified Code(s): R11.2 - Nausea with vomiting, unspecified The scribe's documentation has been prepared under my direction and personally reviewed by me in its entirety. I confirm that the note above accurately reflects all work, treatment, procedures, and medical decision making performed by me.
--- NOTE | 2018-07-11 01:43 | History & Physical Report ---
Date of Service July 11, 2018 Assessment & Plan (1) Intractable nausea and vomitin-year-old female with a complex medical history including metastatic lung cancer. She was recently hospitalized for hemoptysis likely related to her malignancyshe was discharged 2 days ago and has been experiencing severe nausea since. She has vomited 5 times over the course of the day. Intractable nausea and vomiting CT of the abdomen did not show any obstruction or mass-effect, but there was a mention of a lesion on the liver. Reviewing past CTs did not show intra- abdominal metastasis. We will treat the patient with antiemetics, will try a full liquid diet tomorro w morning we will start maintenance fluids at a slow rate of 80 cc/h Would consider brain MRI to look for metastasis that could be compressing the brainstem causing intractable nausea Continue bowel regimen Hypothyroidism Continue levothyroxine Atrial fibrillation Continue metoprolol Anticoagulant was held at previous hospitalization in the setting of recent hemoptysis COPD Holding home inhalers Duo nebs 4 times daily, Flovent twice daily CAD Continue metoprolol, continue to hold aspirin GERD Continue PPI Pleural effusion Pleural X catheter in place DVT prophylaxis SCDs FEN Normal saline at 80 mL's We will try full liquid diet in the morning CODE STATUS Full (2) Metastatic disease: (3) Constipation: (4) COPD (chronic obstructive pulmonary disease): (5) Pleural effusion: (6) Bilateral lung cancer: (7) Primary small cell malignant neoplasm of lung, stage 4: (8) Atrial fibrillation: (9) HLD (hyperlipidemia): (10) Asthma: (11) Anxiety: History of Present Illness Primary Care Provider: Saulo Arthur MD 68-year-old female with a past history of malignant lung cancer, CAD status post stents, CHF, COPD who presents with intractable nausea and vomiting for 1 day. The patient has had nausea for quite a while nowshfranklyn was recently discharged 2 days ago from the hospital where she was being evaluated for hemoptysis which was likely related to her malignancy. She states that she woke up this morning and was nauseous despite taking Zofran and Marinol. She states that she is vomited approximately 5 times throughout the day today. She states that she was unable to keep down the nausea medication. She denies any blood in the vomit. She does report having some generalized abdominal painshe describes it as a dull ache. She has no appetite. She denies having constipationshe has approximately 3 loose bowel movements per day. She denies any blood in her stool. Patient has a frequent cough. Patient denies fevers and chills. Allergies Allergy/AdvReac Type Severity Reaction Status Date / Time meperidine Allergy Intermediate SWELLING Verified 07/10/18 19:51 atropine Allergy Unknown ? Verified 07/10/18 19:51 bee venom protein (honey bee) Allergy Unknown SWELLING Verified 07/10/18 19:51 cefaclor Allergy Unknown ? Verified 07/10/18 19:51 codeine Allergy Unknown ? Verified 07/10/18 19:51 diphenoxylate Allergy Unknown ? Verified 07/10/18 19:51 Gold Salts Allergy Unknown RASH Verified 07/10/18 19:51 iodine Allergy Unknown "D/T Verified 07/10/18 19:51 ALLERGY TO SHRIMP" midazolam Allergy Unknown MUSCLE Verified 07/10/18 19:51 SPAMS AND HALLUCINATIONS morphine Allergy Unknown SWELLING Verified 07/10/18 19:51 Penicillins Allergy Unknown ? Verified 07/10/18 19:51 propantheline Allergy Unknown ? Verified 07/10/18 19:51 shellfish derived Allergy Unknown ? Verified 07/10/18 19:51 shrimp Allergy Unknown THROAT Verified 07/10/18 19:51 SWELLS SHUT succinylcholine Allergy Unknown TOLD NEVER Verified 07/10/18 19:51 TO USE, NEICE SEVERELY ALLERGIC TO MEDS pentazocine [From Talwin] Allergy Hives Verified 07/11/18 03:19 walnut Allergy Swelling Verified 07/11/18 03:18 of Lip/Tongue/Throat adhesive AdvReac Mild Steri-strip Verified 07/10/18 19:51 - blisters dextromethorphan AdvReac Unknown HALLUCINATI Verified 07/11/18 03:07 ON doxylamine AdvReac Unknown HALLUCINATI Verified 07/11/18 03:07 ON lidocaine AdvReac Unknown LETHARGY Verified 07/11/18 03:07 propoxyphene AdvReac Unknown SWELLING Verified 07/11/18 03:07 pseudoephedrine AdvReac Unknown HALLUCINATI Verified 07/11/18 03:07 ON alcohol AdvReac Hallucinati Verified 07/11/18 03:08 ng Home Medications Home Medications Medication Instructions Recorded Confirmed Type albuterol sulfate [Ventolin HFA] 2 puff INHALATION QID PRN 12/22/17 07/10/18 History azelastine 2 spray INTRANASAL DAILY 12/22/17 07/10/18 History baclofen 10 mg PO BID 12/22/17 07/10/18 History cholecalciferol (vitamin D3) 2,000 unit PO QAM 12/22/17 07/10/18 History [Vitamin D3] docusate sodium 100 mg PO TID 12/22/17 07/10/18 History fluticasone propion-salmeterol 1 inh INHALATION Q12H 12/22/17 07/10/18 History [Advair Diskus] fluticasone propionate [Flonase 2 spray INTRANASAL QAM 12/22/17 07/10/18 History Allergy Relief] folic acid 2 mg PO DAILY 12/22/17 07/10/18 History levothyroxine 112 mcg PO QAM 12/22/17 07/10/18 History loratadine 10 mg PO QAM 12/22/17 07/10/18 History nitroglycerin [Nitrostat] 0.4 mg SUBLINGUAL DIRECTED PRN 12/22/17 07/10/18 History omeprazole 40 mg PO QAM 12/22/17 07/10/18 History vitamin B complex [B-Complex] 1 tab PO QAM 02/22/18 07/10/18 History albuterol sulfate 2.5 mg INHALATION QID PRN 05/09/18 07/10/18 History dronabinol 5 mg PO TID 05/09/18 07/10/18 History prochlorperazine maleate 10 mg PO QID PRN 05/09/18 07/10/18 History diclofenac sodium [Voltaren] 1 applic EXT QID #1 tube 05/27/18 07/10/18 Rx B-complex with vitamin C [Super B 1 tab PO DAILY 07/06/18 07/10/18 History Complex-Vitamin C] Combivent Respimat 1 puff INHALATION BID 07/06/18 07/10/18 History acetaminophen [Tylenol Extra 500 mg PO Q4 PRN 07/06/18 07/10/18 History Strength] amoxicillin 2,000 mg PO UD PRN 07/06/18 07/10/18 History gkjqlpwiad-nxrmyqaoow-vpv-cod 1 cap PO Q4 PRN 07/06/18 07/10/18 History diclofenac sodium 4 g TOPICAL BID PRN 07/06/18 07/10/18 History magnesium 500 mg PO DAILY 07/06/18 07/10/18 History metoprolol succinate 25 mg PO DAILY 07/06/18 07/10/18 History mupirocin 1 applic TOPICAL TID 07/06/18 07/10/18 History nystatin 5 ml BUCCAL QID 07/06/18 07/10/18 History ondansetron HCl 4 mg PO Q4 PRN 07/06/18 07/10/18 History ranitidine HCl 75 mg PO BID PRN 07/06/18 07/10/18 History tramadol 50 mg PO Q6H PRN 07/06/18 07/10/18 History zinc gluconate 30 mg PO DAILY 07/06/18 07/10/18 History ferrous sulfate 325 mg PO BID #0 tab 07/09/18 07/10/18 Rx levofloxacin 500 mg PO DAILY@1100 #4 tab 07/09/18 07/10/18 Rx methylprednisolone 4 mg PO DAILY #21 ea 07/09/18 07/10/18 Rx polyethylene glycol 3350 [Miralax] 17 g PO BID #60 ea 07/09/18 07/10/18 Rx Past Med/Surg History Medical History COPD (chronic obstructive pulmonary disease) Hemoptysis (Acute) Primary small cell malignant neoplasm of lung, stage 4 Acute on chronic diastolic (congestive) heart failure Acute respiratory failure with hypoxia and hypercapnia Hypothyroidism Atrial fibrillation HLD (hyperlipidemia) Asthma CAD (coronary artery disease) Valvular heart disease Macrocytosis without anemia GERD (gastroesophageal reflux disease) Anxiety DM type 2 (diabetes mellitus, type 2) Hodgkin lymphoma Tobacco use disorder Acute myocardial infarction Afib Anxiety Atrial ectopic tachycardia CAD (coronary artery disease) CHF (congestive heart failure) COPD (chronic obstructive pulmonary disease) GERD (gastroesophageal reflux disease) Hx of Hodgkins lymphoma Hyponatremia Hypothyroid Pulmonary hemorrhage Upper GI bleed Surgical History Hx of cholecystectomy Hx of heart artery stent Hx of splenectomy S/P bronchoscopy with biopsy EBUS/harmony bronch on 02/24/2018. 8.0ETT. MAC 3, grade 1 view. Patient reintubated postextubation (while still in operating room) for what appeared to be CO2 retention. Please see record for full details. Family History Sister Heart attack Other Family history non-contributory Social History Preferred Language: Scottish Communication Ability: Effective Rn Endocrinology Required: No Beliefs That Will Affect Care: None marital status: Current Living Situation: Spouse current occupational status: retired Feels Safe at Home: Yes Safety Concerns: Feels Safe At This Time Smoking Status: Current every day smoker Hx Alcohol Use: No Hx Substance Use: No Review of Systems All systems reviewed & are unremarkable except as noted in HPI & below Physical Exam Vital Signs (Past 24 Hours): Last Vital Signs Temp 37.0 C 07/10/18 18:27 Pulse 105 H 07/10/18 21:13 Resp 18 07/10/18 21:13 BP 140/78 07/10/18 21:13 Pulse Ox 99 07/10/18 21:13 Constitutional: + ill appearing and + cachectic; no acute distress Eyes: PERRL, conjunctivae normal, anicteric sclerae ENMT: external ear and nose normal, oropharynx normal Neck: trachea midline, no thyromegaly Respiratory: normal respiratory effort, lungs clear to auscultation Cardiovascular: RRR, no murmur, no edema Gastrointestinal (Abdomen): normal bowel sounds, soft, nontender, no hepatosplenomegaly Inspection/Auscultation: + hypoactive bowel sounds; abdomen not distended Percussion/Palpation: + abdomen tender (Generalized) Musculoskeletal: no cyanosis or clubbing, extremities motor strength 5/5 Skin: no rashes, warm and dry Neurologic: PERRL, EOMI, accommodation nl, no face palsy, no dysarthria Psychiatric: A+Ox3, euthymic affect Results & Data Laboratory Results Laboratory Last Values WBC 14.75 K/uL (4.8-10.8) H 07/10/18 19:45 RBC 3.66 M/uL (4.2-5.4) L 07/10/18 19:45 Hgb 12.5 g/dL (12.0-16.0) 07/10/18 19:45 Hct 37.4 % (37-47) 07/10/18 19:45 MCV 102.2 fL (80-100) H 07/10/18 19:45 MCH 34.2 pg (25-34) H 07/10/18 19:45 MCHC 33.4 g/dL (32-36) 07/10/18 19:45 RDW Std Deviation 58.6 fL (36.4-46.3) H 07/10/18 19:45 RDW Coeff of [place] 15.6 % (11.5-14.5) H 07/10/18 19:45 Plt Count 278 K/uL (130-400) 07/10/18 19:45 MPV 9.9 fL (7.4-10.4) 07/10/18 19:45 Immature Gran % (Auto) 0.4 % 07/10/18 19:45 Neut % (Auto) 83.0 % 07/10/18 19:45 Lymph % (Auto) 7.4 % 07/10/18 19:45 [place] % (Auto) 8.9 % 07/10/18 19:45 Eos % (Auto) 0.1 % 07/10/18 19:45 Baso % (Auto) 0.2 % 07/10/18 19:45 Immature Gran # (Auto) 0.06 K/uL (0.00-0.02) H 07/10/18 19:45 Neut # (Auto) 12.24 K/uL (1.4-6.5) H 07/10/18 19:45 Lymph # (Auto) 1.09 K/uL (1.2-3.4) L 07/10/18 19:45 [place] # (Auto) 1.32 K/uL (0.11-0.59) H 07/10/18 19:45 Eos # (Auto) 0.01 K/uL (0-0.5) 07/10/18 19:45 Baso # (Auto) 0.03 K/uL (0-0.2) 07/10/18 19:45 PT 10.8 Seconds (9.0-12.0) 07/10/18 19:45 INR 1.1 (0.9-1.1) 07/10/18 19:45 Sodium 134 mmol/L (136-145) L 07/10/18 19:45 Potassium 3.6 mmol/L (3.5-5.1) 07/10/18 19:45 Chloride 97 mmol/L (98-107) L 07/10/18 19:45 Carbon Dioxide 34 mmol/L (21-32) H 07/10/18 19:45 Anion Gap 3.0 (3-11) 07/10/18 19:45 BUN 17 mg/dl (7-18) 07/10/18 19:45 Creatinine 0.31 mg/dl (0.6-1.2) L 07/10/18 19:45 Est Cr Clr Drug Dosing 126.5 ml/min 07/10/18 19:45 Est GFR ( Amer) 135.8 07/10/18 19:45 Est GFR (Non-Af Amer) 117.2 07/10/18 19:45 BUN/Creatinine Ratio 56.9 (10-20) H 07/10/18 19:45 Glucose 129 mg/dl (70-99) H 07/10/18 19:45 Calcium 8.8 mg/dl (8.5-10.1) 07/10/18 19:45 Phosphorus 3.3 mg/dl (2.5-4.9) 07/10/18 19:45 Magnesium 1.7 mg/dl (1.8-2.4) L 07/10/18 19:45 Total Bilirubin 0.4 mg/dl (0.2-1) 07/10/18 19:45 Direct Bilirubin 0.1 mg/dl (0-0.2) 07/10/18 19:45 AST 20 U/L (15-37) 07/10/18 19:45 ALT 22 U/L (12-78) 07/10/18 19:45 Alkaline Phosphatase 93 U/L (45-117) 07/10/18 19:45 Troponin I < 0.015 ng/ml (0-0.045) 07/10/18 19:45 Total Protein 7.3 gm/dl (6.4-8.2) 07/10/18 19:45 Albumin 3.0 gm/dl (3.4-5.0) L 07/10/18 19:45 Globulin 4.3 gm/dl (2.5-4.0) H 07/10/18 19:45 Albumin/Globulin Ratio 0.7 (0.9-2) L 07/10/18 19:45 Lipase 60 U/L (73-393) L 07/10/18 19:45 Urine Color Yellow 07/10/18 19:45 Urine Appearance Clear (Clear) 07/10/18 19:45 Urine pH 8.0 (4.5-7.5) H 07/10/18 19:45 Ur Specific [place] 1.018 (1.000-1.030) 07/10/18 19:45 Urine Protein Negative (Negative) 07/10/18 19:45 Urine Glucose (UA) Negative (Negative) 07/10/18 19:45 Urine Ketones Negative (Negative) 07/10/18 19:45 Urine Blood Negative (Negative) 07/10/18 19:45 Urine Nitrite Negative (Negative) 07/10/18 19:45 Urine Bilirubin Negative (Negative) 07/10/18 19:45 Urine Urobilinogen Negative (Negative) 07/10/18 19:45 Ur Leukocyte Esterase 1+ (Negative) H 07/10/18 19:45 Urine WBC (Auto) 5-10 /hpf (0-5) H 07/10/18 19:45 Urine RBC (Auto) 0-4 /hpf (0-4) 07/10/18 19:45 U Hyaline Cast (Auto) 1-5 /lpf (0-5) 07/10/18 19:45 U Epithel Cells (Auto) 20-30 /lpf (0-5) H 07/10/18 19:45 Urine Bacteria (Auto) Negative (Negative) 07/10/18 19:45 Code Status & VTE Plan Code Status Full VTE Prophylaxis Plan VTE Prophylaxis will be ordered: Yes Supervising Physician Co-Signing Physician Notes Patient seen and examined, chart reviewed, case discussed with Dr. Jon and I agree with his assessment and plan as documented above. Briefly, patient is a 68yo female with multiple medical problems, metastatic lung CA, pleural effusion with PleurX catheter in place, recently admitted with hemoptysis. She was discharged yesterday. Unable to tolerate PO since arriving home. C/O nausea. More intense than prior nausea. Also with mild headache and occasional dizziness. No focal weakness or seizure. On exam she is afebrile, HD stable, NAD Cachectic, chronically ill HEENT: dry MM, neck supple Heart: +S1/S2, regular Lungs: CTA, diminished in left base Abd: +BS, soft, NT/ND Ext: no edema Neuro: CN intact, diffusely weak with no focal deficits Labs and images reviewed Assessment/Plan: -PO challenge - no improvement with IV Zofran -Continue anti-emetics -Obtain MRI brain, ?mets contributing to nausea -Remainder of plan as above Resident Activity Tracking Resident Involvement: Resident Care Provided Care Provided: Adult [facility] (1) Atrial fibrillation Atrial fibrillation type: chronic Qualified Code(s): I48.2 - Chronic atrial fibrillation (2) HLD (hyperlipidemia) Hyperlipidemia type: unspecified Qualified Code(s): E78.5 - Hyperlipidemia, unspecified (3) COPD (chronic obstructive pulmonary disease) COPD type: unspecified COPD Qualified Code(s): J44.9 - Chronic obstructive pulmonary disease, unspecified (4) Asthma Asthma complication type: uncomplicated Asthma persistence: persistent Asthma severity: moderate Qualified Code(s): J45.40 - Moderate persistent asthma, uncomplicated
[2018-07-11] MEDS ORDERED: TRAMADOL HCL 50 MG TABLET PO PRN (02:47)
[2018-07-11] MEDS ORDERED: NITROGLYCERIN SL 0.4 MG/TAB TAB SL PRN (02:47)
[2018-07-11] MEDS ORDERED: POLYETHYLENE (MIRALAX) 17 GM PACK PO PRN (02:47)
[2018-07-11] MEDS ORDERED: ALBUTEROL 0.083% NEBU SOLN 3 ML VIAL INH PRN (02:47)
[2018-07-11] MEDS ORDERED: ACETAMINOPHEN 500 MG TAB PO PRN (02:47)
[2018-07-11] MEDS: SODIUM CHLORIDE 0.9% 1000ML 1,000 ML IV SCH ×2 (03:17→17:28)
[2018-07-11] MEDS: ALBUT/IPRATROP 3MG/0.5MG NEB 3 ML VIAL NEB SCH ×6 (03:38→23:09)
[2018-07-11] MEDS: LEVOTHYROXINE SODIUM 112 MCG TABLET PO SCH (06:11)
[2018-07-11] MEDS: METOCLOPRAMIDE HCL INJ 5 MG/ML 2 ML VIAL IV SCH ×3 (06:11→17:30)
[2018-07-11] MEDS: ONDANSETRON INJ 2 MG/ML 2 ML VIAL IV PRN (07:48)
[2018-07-11] MEDS: DRONABINOL 2.5 MG CAP PO SCH ×3 (09:13→20:31)
[2018-07-11] MEDS: PANTOprazole 40 MG TAB PO SCH (09:13)
[2018-07-11] MEDS: POLYETHYLENE (MIRALAX) 17 GM PACK PO SCH ×2 (09:13→20:33)
[2018-07-11] MEDS: METOPROLOL SUCC 25MG EXT REL TAB PO SCH (09:15)
[2018-07-11] MEDS: BACLOFEN 10 MG TAB PO SCH ×2 (09:15→20:33)
[2018-07-11] MEDS: DOCUSATE SODIUM 100 MG CAP PO SCH ×3 (09:15→20:33)
[2018-07-11] MEDS: LORATADINE 10 MG TAB PO SCH (09:15)
[2018-07-11] MEDS: MAGNESIUM OXIDE 400 MG TAB PO SCH (09:15)
[2018-07-11] MEDS: NYSTATIN SUSP 500,000 U/5 ML UDC BUCCAL SCH ×4 (09:16→20:33)
[2018-07-11] MEDS: ACETAMINOPHEN 325 MG TAB PO PRN (09:25)
[2018-07-11] MEDS ORDERED: LORazepam 1 MG/2 ML VIAL IV STA (09:43)
[2018-07-11] MEDS: FLUTICASONE HFA 220 MCG INHALER INH SCH ×2 (09:58→20:32)
[2018-07-11] MEDS ORDERED: HEPARIN 100 UNIT/ML 5ML FLUSH ONE (10:09)
[2018-07-11] MEDS ORDERED: levoFLOXacin 500 MG TAB PO SCH (11:00)
[2018-07-11] MEDS ORDERED: GADOBUTROL 65ML VIAL IV PRN (11:01)
--- NOTE | 2018-07-11 11:21 | Magnetic Resonance Report ---
MRI OF THE BRAIN COMBO CLINICAL HISTORY: Metastatic lung cancer. COMPARISON STUDY: MRI of the brain dated 04/26/2018 and 02/27/2018. TECHNIQUE: MRI of the brain was performed utilizing various T1 and T2-weighted sequences in the axial , sagittal, and coronal planes. Contrast-enhanced sequences were acquired following the administratio n of 5.5 cc of Gadavist. FINDINGS: Brain parenchyma: There is minimal subcortical and periventricular microangiopathic change. Small chr onic lacunar infarcts identified within the right cerebellar hemisphere. There is no hemorrhage or ma ss effect. There is no restricted diffusion to suggest acute ischemia. There is a 9 mm pleural-based nodule identified on the right posterior parietal convexity. This enhances homogeneously and is best seen on high-resolution postcontrast image #105. No additional enhancing mass lesion is seen on the p ostcontrast images. Rodríguez-white matter differentiation is preserved. No extra-axial fluid collection i s seen. The cerebellar tonsils are normal in configuration. Ventricles, sulci, and cisterns: Normal in configuration. Pituitary and sella: Unremarkable. Intracranial vasculature: Normal flow voids are maintained at the skull base. Orbits: The bony orbits are grossly intact. Orbital contents are normal in appearance, noting bilater al ocular lens implants. Sinuses and mastoids: There are bilateral mastoid effusions, left larger than right. The paranasal si nuses are clear. Calvarium: Unremarkable. Cervical cord: Partially visualized cervical spinal cord is normal in morphology and signal intensity . IMPRESSION: 1. There is no acute intracranial abnormality. 2. There is no evidence of intracranial metastatic disease. 3. A 9 mm dural-based nodule along the right posterior parietal convexity is unchanged from prior narciso dies and likely represent a small meningioma. There is no associated mass effect. 4. Mastoid effusions. Electronically signed by: Jean Gant M.D. 07/11/2018 11:19 AM
--- NOTE | 2018-07-11 15:50 | Hospitalist Progress Note ---
Date of Service July 11, 2018 Assessment & Plan (1) Intractable nausea and vomitin-year-old female with a complex medical history including metastatic lung cancer. She was recently hospitalized for hemoptysis likely related to her malignancyshe was discharged 2 days ago and has been experiencing severe nausea since. She has vomited 5 times over the course of the day. Intractable nausea and vomiting CT of the abdomen did not show any obstruction or mass-effect, but there was a mention of a lesion on the liver. Reviewing past CTs did not show intra- abdominal metastasis. MRI the brain is negative for intracranial metastases-discussed with patient and her [id number] at the bedside Also with constipation on previous admission and noted on CT here. She has a small bowel ileus on the CT as well. This is most likely secondary to constipation -Now she is moving her bowels and nausea is improved -Continue antiemetics, continue full liquids diet today -Continue IV fluids until taking adequate p.o. Continue bowel regimen Metastatic lung cancer-very poor prognosis, is no longer on chemotherapy Was to see her oncologist today for a follow-up visit to discuss any salvage chemotherapy -Consult oncology here Hypothyroidism Continue levothyroxine Atrial fibrillation-currently in a regular rhythm Continue metoprolol Anticoagulant was discontinued on previous hospitalization in the setting of recent hemoptysis COPD Duo nebs 4 times daily, Flovent twice daily CAD Continue metoprolol, continue to hold aspirin previous hemoptysis GERD Continue PPI Pleural effusion Pleural X catheter in place -Place order to drain once daily DVT prophylaxis SCDs FEN Normal saline at 80 mL's CODE STATUS Full Patient has declined palliative care consult in the past (2) Metastatic disease: (3) Constipation: (4) COPD (chronic obstructive pulmonary disease): (5) Pleural effusion: (6) Bilateral lung cancer: (7) Primary small cell malignant neoplasm of lung, stage 4: (8) Atrial fibrillation: (9) HLD (hyperlipidemia): (10) Asthma: (11) Anxiety: Subjective Feeling better today, no further nausea. She is very drowsy after receiving Ativan for her brain MRI She did move her bowels today No chest pain, does feel little short of breath at times if she takes her oxygen off to go to the bathroom. No further hemoptysis Review of Systems All systems reviewed & are unremarkable except as noted in HPI & below Physical Exam Vital Signs (Past 24 Hours): Last Vital Signs Temp 36.9 C 07/11/18 11:43 Pulse 97 H 07/11/18 15:09 Resp 16 07/11/18 15:09 BP 95/59 L 07/11/18 11:43 Pulse Ox 96 07/11/18 15:09 Constitutional: + cachectic; no acute distress Eyes: PERRL, conjunctivae normal, anicteric sclerae ENMT: Ears: no hearing impairment Mouth: + oropharynx abnormality (White exudate on tongue) Neck: trachea midline, no thyromegaly Respiratory: no labored breathing Auscultation: + diminished lung sounds (At the bases), + crackles (Left upper lung field) and + wheezes (Bilateral) Cardiovascular: RRR, no murmur, no edema Gastrointestinal (Abdomen): normal bowel sounds, soft, nontender, no hepatosplenomegaly Musculoskeletal: Extremities: extremities normal to inspection; no cyanosis and no clubbing Skin: no rashes, warm and dry Neurologic: moves all extremities and awake; no focal motor deficits Psychiatric: A+Ox3, euthymic affect Results & Data Laboratory Results 07/12/18 07/12/18 Range/Units 05:36 05:36 WBC 11.89 H (4.8-10.8) K/uL RBC 3.25 L (4.2-5.4) M/uL Hgb 11.0 L (12.0-16.0) g/dL Hct 34.3 L (37-47) % MCV 105.5 H (80-100) fL MCH 33.8 (25-34) pg MCHC 32.1 (32-36) g/dL RDW Std Deviation 60.9 H (36.4-46.3) fL RDW Coeff of [place] 15.6 H (11.5-14.5) % Plt Count 247 (130-400) K/uL MPV 9.6 (7.4-10.4) fL Immature Gran % (Auto) 0.4 % Neut % (Auto) 77.9 % Lymph % (Auto) 9.8 % [place] % (Auto) 11.6 % Eos % (Auto) 0.1 % Baso % (Auto) 0.2 % Immature Gran # (Auto) 0.05 H (0.00-0.02) K/uL Neut # (Auto) 9.26 H (1.4-6.5) K/uL Lymph # (Auto) 1.17 L (1.2-3.4) K/uL [place] # (Auto) 1.38 H (0.11-0.59) K/uL Eos # (Auto) 0.01 (0-0.5) K/uL Baso # (Auto) 0.02 (0-0.2) K/uL Sodium 138 (136-145) mmol/L Potassium 3.6 (3.5-5.1) mmol/L Chloride 103 (98-107) mmol/L Carbon Dioxide 32 (21-32) mmol/L Anion Gap 3.0 (3-11) BUN 9 D (7-18) mg/dl Creatinine 0.30 L (0.6-1.2) mg/dl Est Cr Clr Drug Dosing 144.0 ml/min Est GFR ( Amer) 137.3 Est GFR (Non-Af Amer) 118.5 BUN/Creatinine Ratio 29.6 H (10-20) Glucose 108 H (70-99) mg/dl Calcium 8.6 (8.5-10.1) mg/dl Phosphorus 2.7 (2.5-4.9) mg/dl Magnesium 1.8 (1.8-2.4) mg/dl (1) Atrial fibrillation Atrial fibrillation type: chronic Qualified Code(s): I48.2 - Chronic atrial fibrillation (2) HLD (hyperlipidemia) Hyperlipidemia type: unspecified Qualified Code(s): E78.5 - Hyperlipidemia, unspecified (3) COPD (chronic obstructive pulmonary disease) COPD type: unspecified COPD Qualified Code(s): J44.9 - Chronic obstructive pulmonary disease, unspecified (4) Asthma Asthma complication type: uncomplicated Asthma persistence: persistent Asthma severity: moderate Qualified Code(s): J45.40 - Moderate persistent asthma, uncomplicated
[2018-07-12] MEDS: ACETAMINOPHEN 325 MG TAB PO PRN (00:11)
[2018-07-12] MEDS: METOCLOPRAMIDE HCL INJ 5 MG/ML 2 ML VIAL IV SCH ×3 (00:11→12:06)
[2018-07-12] MEDS: SODIUM CHLORIDE 0.9% 1000ML 1,000 ML IV SCH ×3 (03:27→23:51)
[2018-07-12] MEDS: ALBUT/IPRATROP 3MG/0.5MG NEB 3 ML VIAL NEB SCH ×6 (03:51→23:05)
[2018-07-12 05:54] LABS: Basophils # (auto) 0.02 K/uL (0-0.2); Basophils % (auto) 0.2 %; Eosinophils # (auto) 0.01 K/uL (0-0.5); Eosinophils % (auto) 0.1 %; Hematocrit (blood only) 34.3 % (37-47); Immature Granulocytes # (auto) 0.05 K/uL (0.00-0.02); Immature Granulocytes % (auto) 0.4 %; Lymphocytes # (auto) 1.17 K/uL (1.2-3.4); Lymphocytes % (auto) 9.8 %; Mean Corpuscular Hgb Conc 32.1 g/dL (32-36); Mean Corpuscular Volume 105.5 fL (80-100); Mean Platelet Volume 9.6 fL (7.4-10.4); Monocytes # (auto) 1.38 K/uL (0.11-0.59); Monocytes % (auto) 11.6 %; Neutrophils # (auto) 9.26 K/uL (1.4-6.5); Neutrophils % (auto) 77.9 %; Platelet Count 247 K/uL (130-400); RDW Coefficient of Variation 15.6 % (11.5-14.5); RDW Standard Deviation 60.9 fL (36.4-46.3); Red Blood Count 3.25 M/uL (4.2-5.4); White Blood Count 11.89 K/uL (4.8-10.8)
[2018-07-12 06:26] LABS: BUN Creatinine Ratio 29.6 (10-20); Calcium 8.6 mg/dl (8.5-10.1); Est GFR (African American) 137.3; Est GFR (Non-African American) 118.5; Magnesium 1.8 mg/dl (1.8-2.4); Phosphorus 2.7 mg/dl (2.5-4.9); Potassium 3.6 mmol/L (3.5-5.1)
[2018-07-12] MEDS: LEVOTHYROXINE SODIUM 112 MCG TABLET PO SCH (06:38)
[2018-07-12] MEDS: DOCUSATE SODIUM 100 MG CAP PO SCH ×3 (09:09→21:25)
[2018-07-12] MEDS: POLYETHYLENE (MIRALAX) 17 GM PACK PO SCH ×2 (09:10→21:24)
[2018-07-12] MEDS: PANTOprazole 40 MG TAB PO SCH (09:10)
[2018-07-12] MEDS: BACLOFEN 10 MG TAB PO SCH ×2 (09:10→21:25)
[2018-07-12] MEDS: DRONABINOL 2.5 MG CAP PO SCH ×3 (09:10→21:25)
[2018-07-12] MEDS: LORATADINE 10 MG TAB PO SCH (09:10)
[2018-07-12] MEDS: NYSTATIN SUSP 500,000 U/5 ML UDC BUCCAL SCH ×4 (09:11→21:26)
[2018-07-12] MEDS: METOPROLOL SUCC 25MG EXT REL TAB PO SCH (09:11)
[2018-07-12] MEDS: MAGNESIUM OXIDE 400 MG TAB PO SCH (09:11)
[2018-07-12] MEDS: FLUTICASONE HFA 220 MCG INHALER INH SCH ×2 (09:11→21:26)
[2018-07-12] MEDS: ALPRAZolam 0.5 MG TABLET PO PRN (10:51)
[2018-07-12] MEDS: ONDANSETRON INJ 2 MG/ML 2 ML VIAL IV PRN ×2 (10:54→22:26)
--- NOTE | 2018-07-12 13:46 | Hospitalist Progress Note ---
Date of Service July 12, 2018 Assessment & Plan (1) Intractable nausea and vomiting: This patient is a 68-year-old female with a complex medical history including metastatic lung cancer. She was recently hospitalized for hemoptysis likely related to her malignancyshe was discharged 2 days ago and has been experiencing severe nausea since. She has vomited 5 times over the course of the day prior to admission. Intractable nausea and vomiting-now resolved for the most part. With leukocytosis on admission, possibly a viral gastritis versus ileus from constipation CT of the abdomen did not show any obstruction or mass-effect, but there was a mention of a lesion on the liver. Reviewing past CTs did not show intra- abdominal metastasis. MRI the brain is negative for intracranial metastases-discussed with patient and her [id number] at the bedside Also with constipation on previous admission and noted on CT here. She has a small bowel ileus on the CT as well. This is most likely secondary to constipation -Now she is moving her bowels and nausea is improved -Continue antiemetics and change Reglan to as needed rather than scheduled, advanced to regular diet today -Continue IV fluids until taking adequate p.o. Continue bowel regimen Metastatic lung cancer-very poor prognosis, is no longer on chemotherapy at the present time. -Consult oncology here and considering restarting treatment-will rule out infectious causes of her presentation at this time and if negative, oncology to discuss starting treatment Hypothyroidism Continue levothyroxine Atrial fibrillation-currently in a regular rhythm Continue metoprolol Anticoagulant was discontinued on previous hospitalization in the setting of recent hemoptysis COPD-with acute exacerbation at this time with worsening shortness of breath. She has been afebrile and leukocytosis is improving. Leukocytosis might also have been from recent steroid use and she has missed 2 days now of steroids with being here and it not being carried over on her home medication list. -Check chest x-ray now Duo nebs 4 times daily, Flovent twice daily -Restart methyl prednisolone taper at 16 mg today and decreased by 4 mg daily CAD Continue metoprolol, continue to hold aspirin previous hemoptysis GERD Continue PPI Pleural effusion Pleural X catheter in place - drain once daily DVT prophylaxis SCDs FEN Normal saline at 80 mL's CODE STATUS Full Patient has declined palliative care consult in the past (2) Metastatic disease: (3) Constipation: (4) COPD (chronic obstructive pulmonary disease): (5) Pleural effusion: (6) Bilateral lung cancer: (7) Primary small cell malignant neoplasm of lung, stage 4: (8) Atrial fibrillation: (9) HLD (hyperlipidemia): (10) Asthma: (11) Anxiety: Subjective Patient feeling more short of breath today. Still little nauseated but ate breakfast and is about to try eating lunch. No abdominal pain. No hemoptysis. She did move her bowels again today and her stools becoming more soft. Discussed the case with oncology, Dr. Bai. Review of Systems All systems reviewed & are unremarkable except as noted in HPI & below Physical Exam Vital Signs (Past 24 Hours): Last Vital Signs Temp 37 C 07/12/18 11:27 Pulse 97 H 07/12/18 11:27 Resp 16 07/12/18 11:27 BP 105/63 07/12/18 11:27 Pulse Ox 98 07/12/18 11:27 Constitutional: + cachectic; no acute distress Eyes: PERRL, conjunctivae normal, anicteric sclerae ENMT: Ears: no hearing impairment Mouth: + oropharynx abnormality (White exudate on tongue) Neck: trachea midline, no thyromegaly Respiratory: + labored breathing (Mild tachypnea) Auscultation: + diminished lung sounds (At the left base); no wheezes Cardiovascular: RRR, no murmur, no edema Gastrointestinal (Abdomen): normal bowel sounds, soft, nontender, no hepatosplenomegaly Musculoskeletal: Extremities: extremities normal to inspection; no cyanosis and no clubbing Skin: no rashes, warm and dry Neurologic: moves all extremities and awake; no focal motor deficits Psychiatric: A+Ox3, euthymic affect Results & Data Laboratory Results 07/12/18 07/12/18 Range/Units 05:36 05:36 WBC 11.89 H (4.8-10.8) K/uL RBC 3.25 L (4.2-5.4) M/uL Hgb 11.0 L (12.0-16.0) g/dL Hct 34.3 L (37-47) % MCV 105.5 H (80-100) fL MCH 33.8 (25-34) pg MCHC 32.1 (32-36) g/dL RDW Std Deviation 60.9 H (36.4-46.3) fL RDW Coeff of [place] 15.6 H (11.5-14.5) % Plt Count 247 (130-400) K/uL MPV 9.6 (7.4-10.4) fL Immature Gran % (Auto) 0.4 % Neut % (Auto) 77.9 % Lymph % (Auto) 9.8 % [place] % (Auto) 11.6 % Eos % (Auto) 0.1 % Baso % (Auto) 0.2 % Immature Gran # (Auto) 0.05 H (0.00-0.02) K/uL Neut # (Auto) 9.26 H (1.4-6.5) K/uL Lymph # (Auto) 1.17 L (1.2-3.4) K/uL [place] # (Auto) 1.38 H (0.11-0.59) K/uL Eos # (Auto) 0.01 (0-0.5) K/uL Baso # (Auto) 0.02 (0-0.2) K/uL Sodium 138 (136-145) mmol/L Potassium 3.6 (3.5-5.1) mmol/L Chloride 103 (98-107) mmol/L Carbon Dioxide 32 (21-32) mmol/L Anion Gap 3.0 (3-11) BUN 9 D (7-18) mg/dl Creatinine 0.30 L (0.6-1.2) mg/dl Est Cr Clr Drug Dosing 144.0 ml/min Est GFR ( Amer) 137.3 Est GFR (Non-Af Amer) 118.5 BUN/Creatinine Ratio 29.6 H (10-20) Glucose 108 H (70-99) mg/dl Calcium 8.6 (8.5-10.1) mg/dl Phosphorus 2.7 (2.5-4.9) mg/dl Magnesium 1.8 (1.8-2.4) mg/dl (1) COPD (chronic obstructive pulmonary disease) COPD type: unspecified COPD Qualified Code(s): J44.9 - Chronic obstructive pulmonary disease, unspecified (2) Atrial fibrillation Atrial fibrillation type: chronic Qualified Code(s): I48.2 - Chronic atrial fibrillation (3) HLD (hyperlipidemia) Hyperlipidemia type: unspecified Qualified Code(s): E78.5 - Hyperlipidemia, unspecified (4) Asthma Asthma severity: moderate Asthma persistence: persistent Asthma complication type: uncomplicated Qualified Code(s): J45.40 - Moderate persistent asthma, uncomplicated
--- NOTE | 2018-07-12 14:14 | XRay Report ---
XR chest 1V portable HISTORY: Shortness of breath. Lung cancer. COMPARISON: Chest 07/10/2018. FINDINGS: No pneumothorax. Left-sided chest tube terminates in the left midlung zone. This remains un changed. Progressive partially loculated moderate left pleural effusion. Moderate right pleural effus ion is also increased in size. The heart is normal in size. Left subclavian Port-A-Cath right of the distal SVC. Perihilar interstitial and vascular thickening suggest mild congestive change. Scattered pulmonary nodules and calcified granulomas are again noted consistent with metastatic disease. Surgic al clips within the upper abdomen. Progressive bibasilar densities may be due to atelectasis from the pleural effusions. No change in the hazy appearance to the left upper lung zone likely due to the lo culated fluid and near complete consolidation of the left upper lobe. IMPRESSION: 1. Moderate bilateral pleural effusions which have progressed. 2. No change in the hazy appearance to the left upper lung zone which is likely due to the near compl ete consolidation of the left upper lobe. 3. The left-sided chest tube is unchanged in position. No pneumothorax. Electronically signed by: Beck Dixon M.D. 07/12/2018 2:13 PM
[2018-07-13] MEDS: METOCLOPRAMIDE HCL INJ 5 MG/ML 2 ML VIAL IV PRN ×2 (01:33→07:58)
[2018-07-13] MEDS: ALBUT/IPRATROP 3MG/0.5MG NEB 3 ML VIAL NEB SCH ×6 (03:03→19:23)
[2018-07-13] MEDS: ONDANSETRON INJ 2 MG/ML 2 ML VIAL IV PRN ×2 (04:35→23:05)
[2018-07-13] MEDS: LEVOTHYROXINE SODIUM 112 MCG TABLET PO SCH (06:12)
[2018-07-13] MEDS: LORATADINE 10 MG TAB PO SCH (07:38)
[2018-07-13] MEDS: METOPROLOL SUCC 25MG EXT REL TAB PO SCH (07:38)
[2018-07-13] MEDS: MAGNESIUM OXIDE 400 MG TAB PO SCH (07:39)
[2018-07-13] MEDS: DOCUSATE SODIUM 100 MG CAP PO SCH ×3 (07:39→20:35)
[2018-07-13] MEDS: PANTOprazole 40 MG TAB PO SCH (07:39)
[2018-07-13] MEDS: BACLOFEN 10 MG TAB PO SCH ×2 (07:39→20:37)
[2018-07-13] MEDS: NYSTATIN SUSP 500,000 U/5 ML UDC BUCCAL SCH ×4 (07:40→20:37)
[2018-07-13] MEDS: POLYETHYLENE (MIRALAX) 17 GM PACK PO SCH ×2 (07:40→20:35)
[2018-07-13] MEDS: FLUTICASONE HFA 220 MCG INHALER INH SCH ×2 (07:41→20:37)
--- NOTE | 2018-07-13 07:57 | Procedure Note ---
Procedure Note Date of Service July 13, 2018 2 mg aleplase in 10cc fluid placed into pleurex under sterile conditions. Pleurex redressed, leaving end of catheter accessable as RN asked to drain it at 10:00 am.
[2018-07-13] MEDS: ACETAMINOPHEN 325 MG TAB PO PRN (07:58)
[2018-07-13] MEDS ORDERED: ALTEPLASE, RECOMBINANT 1 MG/ML 2ML VIAL INSTIL SCH (08:00)
--- NOTE | 2018-07-13 09:13 | Progress Note ---
DATE: 07/13/2018 Litzy was seen today. She was just discharged a few days ago. She has widely metastatic small cell lung carcinoma which is not really responding to chemotherapy. She has not been treated with chemo for several weeks now. She became quite ill. She has now become acutely short of breath and has difficulty even speaking. Having said that, her saturations are 97% on 2 liters. I discussed this with the patient this morning. Her x-ray and recent CT scan show reaccumulation of more fluid bilaterally, but a bit more on the left. I do not believe the PleurX catheter is functioning properly. We are going to place a small amount of tissue plasminogen activator in this tube and see if we can get it working again. Otherwise, she is awake and alert, but her voice is very soft and just above whisper. She is also tachycardic. She has decreased breath sounds on both sides, but more so on the left than the right. She also has some collapse of her medial left upper lobe due to her cancer. At this point, we are going to see if we can use a tPA to open this up a bit.
[2018-07-13] MEDS: DRONABINOL 2.5 MG CAP PO SCH ×3 (09:22→17:33)
[2018-07-13 09:33] LABS: Basophils # (auto) 0.01 K/uL (0-0.2); Basophils % (auto) 0.1 %; Hematocrit (blood only) 38.2 % (37-47); Hemoglobin 12.1 g/dL (12.0-16.0); Immature Granulocytes # (auto) 0.06 K/uL (0.00-0.02); Immature Granulocytes % (auto) 0.4 %; Lymphocytes # (auto) 0.35 K/uL (1.2-3.4); Lymphocytes % (auto) 2.2 %; Mean Corpuscular Hgb Conc 31.7 g/dL (32-36); Mean Corpuscular Volume 107.6 fL (80-100); Mean Platelet Volume 9.6 fL (7.4-10.4); Monocytes # (auto) 1.52 K/uL (0.11-0.59); Monocytes % (auto) 9.7 %; Neutrophils # (auto) 13.73 K/uL (1.4-6.5); Neutrophils % (auto) 87.6 %; Platelet Count 236 K/uL (130-400); RDW Coefficient of Variation 15.7 % (11.5-14.5); RDW Standard Deviation 61.7 fL (36.4-46.3); Red Blood Count 3.55 M/uL (4.2-5.4); White Blood Count 15.67 K/uL (4.8-10.8)
[2018-07-13 09:52] LABS: BUN Creatinine Ratio 38.5 (10-20); Calcium 9.6 mg/dl (8.5-10.1); Creatinine Clr Calc Pharmacy 123.5 ml/min; Est GFR (African American) 130.5; Est GFR (Non-African American) 112.6; Potassium 4.6 mmol/L (3.5-5.1)
--- NOTE | 2018-07-13 14:30 | Hospitalist Progress Note ---
Date of Service July 13, 2018 Assessment & Plan (1) Intractable nausea and vomiting: This patient is a 68-year-old female with a complex medical history including metastatic lung cancer. She was recently hospitalized for hemoptysis likely related to her malignancyshe was discharged 2 days ago and has been experiencing severe nausea since. She has vomited 5 times over the course of the day prior to admission. Intractable nausea and vomiting-now resolved. With leukocytosis on admission, possibly a viral gastritis versus ileus from constipation CT of the abdomen did not show any obstruction or mass-effect, but there was a mention of a lesion on the liver. Reviewing past CTs did not show intra- abdominal metastasis. MRI the brain is negative for intracranial metastases-discussed with patient and her [id number] at the bedside Also with constipation on previous admission and noted on CT here. She has a small bowel ileus on the CT as well. This is most likely secondary to constipation -Now she is moving her bowels and nausea is improved -Continue antiemetics and change Reglan to as needed rather than scheduled, advanced to regular diet today -Discontinue IV fluids as he is getting volume overloaded Continue bowel regimen Metastatic lung cancer-very poor prognosis, is no longer on chemotherapy at the present time. -Consulted oncology here and considering restarting treatment if can tolerate it-I do not see any ongoing infectious processes at this time, although she is quite short of breath likely due to her worsening pleural effusions Hypothyroidism Continue levothyroxine Atrial fibrillation-currently in a regular rhythm Continue metoprolol Anticoagulant was discontinued on previous hospitalization in the setting of recent hemoptysis COPD-with acute exacerbation-acute hypoxic respiratory failure is worsening today. She is tachypneic at rest. Chest x-ray on 07/12 with worsening bilateral pleural effusions. Her Pleurx catheter was not draining properly. She only drained 50 mL's yesterday evening despite a good size pleural effusion on chest x-ray. Thoracic surgery consulted and they placed TPA today and the Pleurx and now she was restrained for 400 mL's which is an improvement -Discussed BiPAP with her which she says she cannot tolerate -Consider high flow nasal cannula versus BiPAP if further decompensates as she may tire out this evening. Patient wants to consider making herself a DNR/DNI at this time but wants to discuss it with her best friend, Jessica, who will be her designated healthcare power of transactional attorney-looking into see if there is official paperwork on this -She has been afebrile and leukocytosis is increasing likely due to steroid use -Continue methylprednisolone and taper down as tolerated -Follow chest x-ray Continue duo nebs 4 times daily, Flovent twice daily CAD Continue metoprolol, continue to hold aspirin previous hemoptysis GERD Continue PPI Pleural effusion-as above Pleural X catheter in place, now receiving TPA treatment - drain as per thoracic surgery protocol DVT prophylaxis SCDs FEN Discontinued IV fluids due to worsening pleural effusions CODE STATUS Full for now, but Reconsidering making herself a DNR/DNI given her poor prognosis and poor pulmonary reserve Patient continues to decline palliative care consult today (2) Metastatic disease: (3) Constipation: (4) COPD (chronic obstructive pulmonary disease): (5) Pleural effusion: (6) Bilateral lung cancer: (7) Primary small cell malignant neoplasm of lung, stage 4: (8) Atrial fibrillation: (9) HLD (hyperlipidemia): (10) Asthma: (11) Anxiety: Subjective Patient is quite short of breath today. Has lost her voice. Reports to me that she is considering changing herself to DNR/DNI, but wants to talk it over with her best friend Jessica who she wants to designate as her healthcare power of transactional attorney. She reports that previously BiPAP made her feel like her cheek bones were breaking and she does not want to use that. She had TPA instilled and her Pleurx catheter was just drained for 400 mL's on the left side. She had a piece of a strawberry get stuck in her throat for several hours today. She was feeling a little lightheaded after trying to talk with a really hoarse voice, blood pressure and vital signs checked at the bedside were within normal limits. The lightheadedness resolved after she stopped trying to talk for a while and caught her breath. Review of Systems Review of Systems: All systems reviewed & are unremarkable except as noted in HPI & below Physical Exam Constitutional: + acute distress and + cachectic Eyes: PERRL, conjunctivae normal, anicteric sclerae ENMT: Ears: no hearing impairment Mouth: + oropharynx abnormality (White exudate on tongue) Neck: trachea midline, no thyromegaly Respiratory: + labored breathing (Mild tachypnea) Auscultation: + diminished lung sounds (At the left base) and + crackles (At the bases bilaterally); no wheezes Cardiovascular: RRR, no murmur, no edema Gastrointestinal (Abdomen): normal bowel sounds, soft, nontender, no hepatosplenomegaly Musculoskeletal: Extremities: extremities normal to inspection; no cyanosis and no clubbing Skin: no rashes, warm and dry Neurologic: moves all extremities and awake; no focal motor deficits Psychiatric: A+Ox3, euthymic affect Results & Data Vital Signs (Past 12 Hours) Vital Signs Temp Pulse Resp BP BP Pulse Ox 07/13/18 14:16 36.5 C 101 H 26 H 134/78 97 07/13/18 11:13 98 H 16 99 07/13/18 11:04 36.7 C 94 H 18 107/64 94 07/13/18 07:17 36.8 C 126 H 22 96/62 L 97 07/13/18 05:00 116 H 24 97 07/13/18 04:49 36.6 C 113 H 24 114/81 95 Laboratory Results 07/13/18 07/13/18 Range/Units 09:11 09:11 WBC 15.67 H (4.8-10.8) K/uL RBC 3.55 L (4.2-5.4) M/uL Hgb 12.1 (12.0-16.0) g/dL Hct 38.2 (37-47) % MCV 107.6 H (80-100) fL MCH 34.1 H (25-34) pg MCHC 31.7 L (32-36) g/dL RDW Std Deviation 61.7 H (36.4-46.3) fL RDW Coeff of [place] 15.7 H (11.5-14.5) % Plt Count 236 (130-400) K/uL MPV 9.6 (7.4-10.4) fL Immature Gran % (Auto) 0.4 % Neut % (Auto) 87.6 % Lymph % (Auto) 2.2 % [place] % (Auto) 9.7 % Eos % (Auto) 0.0 % Baso % (Auto) 0.1 % Immature Gran # (Auto) 0.06 H (0.00-0.02) K/uL Neut # (Auto) 13.73 H (1.4-6.5) K/uL Lymph # (Auto) 0.35 L (1.2-3.4) K/uL [place] # (Auto) 1.52 H (0.11-0.59) K/uL Eos # (Auto) 0.00 (0-0.5) K/uL Baso # (Auto) 0.01 (0-0.2) K/uL Sodium 136 (136-145) mmol/L Potassium 4.6 D (3.5-5.1) mmol/L Chloride 103 (98-107) mmol/L Carbon Dioxide 30 (21-32) mmol/L Anion Gap 2.0 L (3-11) BUN 14 D (7-18) mg/dl Creatinine 0.35 L (0.6-1.2) mg/dl Est Cr Clr Drug Dosing 123.5 ml/min Est GFR ( Amer) 130.5 Est GFR (Non-Af Amer) 112.6 BUN/Creatinine Ratio 38.5 H (10-20) Glucose 149 H (70-99) mg/dl Calcium 9.6 (8.5-10.1) mg/dl (1) COPD (chronic obstructive pulmonary disease) COPD type: unspecified COPD Qualified Code(s): J44.9 - Chronic obstructive pulmonary disease, unspecified (2) Atrial fibrillation Atrial fibrillation type: chronic Qualified Code(s): I48.2 - Chronic atrial fibrillation (3) HLD (hyperlipidemia) Hyperlipidemia type: unspecified Qualified Code(s): E78.5 - Hyperlipidemia, unspecified (4) Asthma Asthma severity: moderate Asthma persistence: persistent Asthma complication type: uncomplicated Qualified Code(s): J45.40 - Moderate persistent asthma, uncomplicated
[2018-07-14] MEDS: ALPRAZolam 0.5 MG TABLET PO PRN (00:01)
[2018-07-14] MEDS: ALBUT/IPRATROP 3MG/0.5MG NEB 3 ML VIAL NEB SCH ×4 (04:15→11:12)
[2018-07-14] MEDS: ONDANSETRON INJ 2 MG/ML 2 ML VIAL IV PRN (05:50)
[2018-07-14] MEDS: LEVOTHYROXINE SODIUM 112 MCG TABLET PO SCH (05:52)
--- NOTE | 2018-07-14 07:46 | XRay Report ---
XR chest 1V portable HISTORY: Shortness of breath. Lung cancer. COMPARISON: Chest 07/12/2018. FINDINGS: The left-sided chest tube remains unchanged in position. No definite pneumothorax. The part ially loculated left pleural effusion has significantly improved. Small right pleural effusion persis ts. Bilateral airspace opacities remain unchanged. The heart is stable in size. Postoperative changes and abdominal surgical clips persist. Left-sided Port-A-Cath terminates in the distal SVC. This chaim ins unchanged. Calcified mediastinal lymph nodes. IMPRESSION: 1. Improvement in the loculated left pleural effusion. The left-sided chest tube is unchanged in posi tion. 2. Bilateral airspace opacities/edema persists. 3. Small right pleural effusion, unchanged. 4. No pneumothorax. Electronically signed by: Beck Dixon M.D. 07/14/2018 7:45 AM
[2018-07-14] MEDS ORDERED: VANCOMYCIN CONSULT ACTIVE PRN (08:19)
[2018-07-14] MEDS ORDERED: methylPREDNISolone 125 MG/2 ML VIAL IV STA (08:19)
--- NOTE | 2018-07-14 08:24 | Progress Note ---
DATE: 07/14/2018 Ms. Preston was seen today on 07/14/2018. She appeared to have loculated effusion with a nonfunctioning PleurX catheter. We placed 2 mg of alteplase and this worked very nicely. She drained 400 mL and then another 500, and her left-sided x-ray looks better to me. She has really very little in the way of fluid. It appeared to me this morning that she had more fluid on the right as she is really struggling to breathe. She has some cyanosis. I was going to perform a therapeutic thoracentesis; however, ultrasound showed that she really has very little in the way of any fluid on the right at all. In addition, I explained to her, there is really nothing I could do to make her feel better. I discussed this with the patient and her family. Dr. Colon was at the bedside also. I am afraid Cesilia is at end of life. She survived a lymphoma many years ago and now has small cell lung CA, for which she has been treated; however, is no longer being treated for this as she has had progression of disease. The patient and her family are quite aware of the outcome.
[2018-07-14] MEDS: DRONABINOL 2.5 MG CAP PO SCH ×2 (08:32→11:33)
[2018-07-14] MEDS: METOPROLOL SUCC 25MG EXT REL TAB PO SCH (08:32)
[2018-07-14] MEDS: LORATADINE 10 MG TAB PO SCH (08:32)
[2018-07-14] MEDS ORDERED: LORazepam 0.5 MG/1 ML VIAL IV PRN (08:32)
[2018-07-14] MEDS: BACLOFEN 10 MG TAB PO SCH (08:32)
[2018-07-14] MEDS: DOCUSATE SODIUM 100 MG CAP PO SCH ×2 (08:32→13:43)
[2018-07-14] MEDS: PANTOprazole 40 MG TAB PO SCH (08:32)
[2018-07-14] MEDS: POLYETHYLENE (MIRALAX) 17 GM PACK PO SCH (08:33)
[2018-07-14] MEDS: MAGNESIUM OXIDE 400 MG TAB PO SCH (08:33)
[2018-07-14] MEDS: NYSTATIN SUSP 500,000 U/5 ML UDC BUCCAL SCH ×2 (08:33→13:43)
[2018-07-14] MEDS: FLUTICASONE HFA 220 MCG INHALER INH SCH (08:34)
[2018-07-14] MEDS ORDERED: methylPREDNISolone 125 MG in SYRINGE 0 ML IV ONE (08:45)
[2018-07-14] MEDS ORDERED: VANCOMYCIN HCL 1,500 MG in SODIUM CHLORIDE 0.9% 500 ML IV ONE (08:45)
[2018-07-14] MEDS ORDERED: CEFEPIME 2,000 MG in SYRINGE 7.5 ML IV SCH (09:00)
[2018-07-14] MEDS ORDERED: MoRPHine SULFATE 2 MG/ML CARP ONE (12:10)
[2018-07-14] MEDS ORDERED: MoRPHine SULFATE 2 MG/ML CARP IV PRN ×2 (12:12→14:30)
[2018-07-14] MEDS ORDERED: VANCOMYCIN HCL 1,000 MG in SODIUM CHLORIDE 0.9% 250 ML IV SCH (14:00)
--- NOTE | 2018-07-14 15:51 | Palliative Care Consultation ---
Date of Consultation July 14, 2018 Assessment & Plan (1) Goals of care, counseling/discussion: -Patient previously known to the palliative care service. 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 -Met with patient and her family at bedside including: Casey, nephew Jadiel, Jadiel's Alee, POA/friend Marina, and several other family members including patient's son. Dr. Colon gave medical update. -Abx and steroids were started this morning for a worsening CXR that showed pneumonia, pleural effusions, metastatic disease and COPD. Unfortunately, patient has continued to decline throughout today. She is on high-flow nasal cannula, obtunded, cyanotic in the lips. -Family all in agreement that we will transition to comfort measures only at this time. Stop abx, stop lab draws, give medications only for comfort. -Continue morphine 1mg IV Q30min PRN pain or SOB. -Lorazepam 0.5mg IV Q2h PRN anxiety/agitation. -Atropine 1% oph soln 4 drops SL Q1h PRN secretions. -Comfort measures only. No VS, etc. -All questions answered for family. -Thank you kindly for consulting me on this mariposa patient and her familiy. (2) Constipation: (3) Pleural effusion: (4) Primary small cell malignant neoplasm of lung, stage 4: (5) Acute on chronic diastolic (congestive) heart failure: (6) Acute respiratory failure with hypoxia and hypercapnia: (7) Severe protein-calorie malnutrition: History of Present Illness Reason for Consultation: Goals of care Requesting Physician: Dr. Colon Attending Physician: Christiane Colon MD History of Present Illness This is a 68 year old female patient with widely metastatic small cell lung cancer with recurrent pleural effusion, heart failure and many other medical problems. She is well-known to the palliative care service. Patient has been admitted with respiratory failure, and has had several readmissions recently. Unfortunately, patient is rapidly declining and seems to be nearing the end of life. Palliative care has been consulted to discuss goals of care and provide comfort. Thank you kindly for consulting us on this mariposa patient and her family. Allergies Allergy/AdvReac Type Severity Reaction Status Date / Time meperidine Allergy Intermediate SWELLING Verified 07/10/18 19:51 atropine Allergy Unknown ? Verified 07/10/18 19:51 bee venom protein (honey bee) Allergy Unknown SWELLING Verified 07/10/18 19:51 cefaclor Allergy Unknown ? Verified 07/10/18 19:51 codeine Allergy Unknown ? Verified 07/10/18 19:51 diphenoxylate Allergy Unknown ? Verified 07/10/18 19:51 Gold Salts Allergy Unknown RASH Verified 07/10/18 19:51 iodine Allergy Unknown "D/T Verified 07/10/18 19:51 ALLERGY TO SHRIMP" midazolam Allergy Unknown MUSCLE Verified 07/10/18 19:51 SPAMS AND HALLUCINATIONS morphine Allergy Unknown SWELLING Verified 07/10/18 19:51 Penicillins Allergy Unknown ? Verified 07/10/18 19:51 propantheline Allergy Unknown ? Verified 07/10/18 19:51 shellfish derived Allergy Unknown ? Verified 07/10/18 19:51 shrimp Allergy Unknown THROAT Verified 07/10/18 19:51 SWELLS SHUT succinylcholine Allergy Unknown TOLD NEVER Verified 07/10/18 19:51 TO USE, NEICE SEVERELY ALLERGIC TO MEDS pentazocine [From Gold] Allergy Hives Verified 07/11/18 03:19 walnut Allergy Swelling Verified 07/11/18 03:18 of Lip/Tongue/Throat adhesive AdvReac Mild Steri-strip Verified 07/10/18 19:51 - blisters dextromethorphan AdvReac Unknown HALLUCINATI Verified 07/11/18 03:07 ON doxylamine AdvReac Unknown HALLUCINATI Verified 07/11/18 03:07 ON lidocaine AdvReac Unknown LETHARGY Verified 07/11/18 03:07 propoxyphene AdvReac Unknown SWELLING Verified 07/11/18 03:07 pseudoephedrine AdvReac Unknown HALLUCINATI Verified 07/11/18 03:07 ON alcohol AdvReac Hallucinati Verified 07/11/18 03:08 ng Home Medications Home Medications Medication Instructions Recorded Confirmed Type albuterol sulfate [Ventolin HFA] 2 puff INHALATION QID PRN 12/22/17 07/10/18 History azelastine 2 spray INTRANASAL DAILY 12/22/17 07/10/18 History baclofen 10 mg PO BID 12/22/17 07/10/18 History cholecalciferol (vitamin D3) 2,000 unit PO QAM 12/22/17 07/10/18 History [Vitamin D3] docusate sodium 100 mg PO TID 12/22/17 07/10/18 History fluticasone propion-salmeterol 1 inh INHALATION Q12H 12/22/17 07/10/18 History [Advair Diskus] fluticasone propionate [Flonase 2 spray INTRANASAL QAM 12/22/17 07/10/18 History Allergy Relief] folic acid 2 mg PO DAILY 12/22/17 07/10/18 History levothyroxine 112 mcg PO QAM 12/22/17 07/10/18 History loratadine 10 mg PO QAM 12/22/17 07/10/18 History nitroglycerin [Nitrostat] 0.4 mg SUBLINGUAL DIRECTED PRN 12/22/17 07/10/18 History omeprazole 40 mg PO QAM 12/22/17 07/10/18 History vitamin B complex [B-Complex] 1 tab PO QAM 02/22/18 07/10/18 History albuterol sulfate 2.5 mg INHALATION QID PRN 05/09/18 07/10/18 History dronabinol 5 mg PO TID 05/09/18 07/10/18 History prochlorperazine maleate 10 mg PO QID PRN 05/09/18 07/10/18 History diclofenac sodium [Voltaren] 1 applic EXT QID #1 tube 05/27/18 07/10/18 Rx B-complex with vitamin C [Super B 1 tab PO DAILY 07/06/18 07/10/18 History Complex-Vitamin C] Combivent Respimat 1 puff INHALATION BID 07/06/18 07/10/18 History acetaminophen [Tylenol Extra 500 mg PO Q4 PRN 07/06/18 07/10/18 History Strength] amoxicillin 2,000 mg PO UD PRN 07/06/18 07/10/18 History wptfxcqlmp-diyvgnkbxx-trg-cod 1 cap PO Q4 PRN 07/06/18 07/10/18 History diclofenac sodium 4 g TOPICAL BID PRN 07/06/18 07/10/18 History magnesium 500 mg PO DAILY 07/06/18 07/10/18 History metoprolol succinate 25 mg PO DAILY 07/06/18 07/10/18 History mupirocin 1 applic TOPICAL TID 07/06/18 07/10/18 History nystatin 5 ml BUCCAL QID 07/06/18 07/10/18 History ondansetron HCl 4 mg PO Q4 PRN 07/06/18 07/10/18 History ranitidine HCl 75 mg PO BID PRN 07/06/18 07/10/18 History tramadol 50 mg PO Q6H PRN 07/06/18 07/10/18 History zinc gluconate 30 mg PO DAILY 07/06/18 07/10/18 History ferrous sulfate 325 mg PO BID #0 tab 07/09/18 07/10/18 Rx levofloxacin 500 mg PO DAILY@1100 #4 tab 07/09/18 07/10/18 Rx methylprednisolone 4 mg PO DAILY #21 ea 07/09/18 07/10/18 Rx polyethylene glycol 3350 [Miralax] 17 g PO BID #60 ea 07/09/18 07/10/18 Rx Patient History Medical History COPD (chronic obstructive pulmonary disease) Hemoptysis (Acute) Primary small cell malignant neoplasm of lung, stage 4 Acute on chronic diastolic (congestive) heart failure Acute respiratory failure with hypoxia and hypercapnia Hypothyroidism Atrial fibrillation HLD (hyperlipidemia) Asthma CAD (coronary artery disease) Valvular heart disease Macrocytosis without anemia GERD (gastroesophageal reflux disease) Anxiety DM type 2 (diabetes mellitus, type 2) Hodgkin lymphoma Tobacco use disorder Acute myocardial infarction Afib Anxiety Atrial ectopic tachycardia CAD (coronary artery disease) CHF (congestive heart failure) COPD (chronic obstructive pulmonary disease) GERD (gastroesophageal reflux disease) Hx of Hodgkins lymphoma Hyponatremia Hypothyroid Pulmonary hemorrhage Upper GI bleed Surgical History Hx of cholecystectomy Hx of heart artery stent Hx of splenectomy S/P bronchoscopy with biopsy EBUS/harmony bronch on 02/24/2018. 8.0ETT. MAC 3, grade 1 view. Patient reintubated postextubation (while still in operating room) for what appeared to be CO2 retention. Please see record for full details. Family History Sister Heart attack Other Family history non-contributory Social History Preferred Language: Kiswahili Communication Ability: Effective Beliefs That Will Affect Care: None marital status: Current Living Situation: Spouse current occupational status: retired Feels Safe at Home: Yes Smoking Status: Current every day smoker Tobacco Type: cigarettes Cigarettes Per Day: 10 Hx Alcohol Use: No Hx Substance Use: No Review of Systems Review of Systems: Unobtainable due to cognitive status Physical Exam Constitutional: + ill appearing, + thin and + cachectic; no acute distress Eyes: eyes closed ENMT: Mouth: + lip abnormality (lips are cyanotic) Neck: normal visual inspection Respiratory: + uses accessory muscles; not tachypneic no tracheal secretions noted at this time Neurologic: + obtunded Psychiatric: Orientation: + not alert Results & Data Vital Signs (Past 12 Hours) Vital Signs Temp Pulse Resp BP BP Pulse Ox 07/14/18 12:16 105 H 20 94 07/14/18 11:12 100 H 20 100 07/14/18 11:00 36.9 C 98 H 20 124/75 100 07/14/18 08:44 101 H 20 98 07/14/18 07:09 101 H 18 97 07/14/18 07:00 36.6 C 98 H 20 120/71 95 07/14/18 03:54 36.6 C 101 H 22 128/75 90 Time Spent Midlevel 50 minutes with >50% of time spent at bedside with patient and family discussing EOL care and PUBLICATIONS MANAGER.
[2018-07-14] MEDS ORDERED: ATROPINE SULFATE 1% OP SOLN 5 ML BTL SL PRN (15:53)
[2018-07-14] MEDS ORDERED: methylPREDNISolone 60 MG in SYRINGE 0 ML IV SCH (16:00)
[2018-07-14] MEDS ORDERED: ATROPINE SULFATE 1% OP SOLN 2 ML BTL ONE (16:18)
--- NOTE | 2018-07-14 19:27 | Progress Note ---
DATE: 07/14/2018 Litzy Preston was seen today on 07/14/2018. She looks terrible. I am quite concerned about her and her x-ray showed that we had successfully drained her left pleural cavity with the PleurX catheter; however, it appears she may have more fluid on the right. On the morning of 07/14/2018 I brought up to the ultrasound prepared to do a thoracentesis in the hopes that we can give her some relief as she was quite short of breath; however, I did not see any fluid at all. I believe this is all atelectasis and infiltrates. At this point, I have really had nothing to offer Mrs. Preston. I explained this to Dr. Colon.
--- NOTE | 2018-07-15 07:39 | Hospitalist Progress Note ---
Date of Service DOS is ACTUALLY 07/14/2018 July 15, 2018 Assessment & Plan (1) Intractable nausea and vomiting: This patient is a 68-year-old female with a complex medical history including metastatic lung cancer. She was recently hospitalized for hemoptysis likely related to her malignancyshe was discharged 2 days ago and then returned with N/V x 5. Intractable nausea and vomiting-now resolved. With leukocytosis on admission, possibly a viral gastritis versus ileus from constipation as seen on CT abd/pel CT of the abdomen did not show any obstruction or mass-effect, but there was a mention of a lesion on the liver. Reviewing past CTs did not show intra- abdominal metastasis. MRI the brain is negative for intracranial metastases-discussed with patient and her [id number] at the bedside Also with constipation on previous admission and noted on CT here. She has a small bowel ileus on the CT as well. This is most likely secondary to constipation -The N/V and constipation resolved with antiemetics and bowel regimen Metastatic lung cancer-very poor prognosis, is no longer on chemotherapy at the present time. -Consulted oncology here and had considered restarting treatment if can tolerate it-but now with significantly worsening status,I informed Oncologist of her condition COPD-with acute exacerbation-acute hypoxic respiratory failure is significantly worse today. Pleural effusions and bilateral airspace opacity on CXR--> left PleurX draining now and not enough fluid to drain on right side. Was on po steroids--> transitioned to IV steroids and IV Cefepime and Vanco briefly today, along with HFNC as cannot tolerate BiPAP. -She has been afebrile and leukocytosis was likely due to steroid use -now decompensating very quickly likely due to poor cough effort, cachexia, weakness, severe COPD -made transition to FRONT OFFICE AGENT today--> stop all steroids, antibiotics, nebulizers and inhalers -use morphine as needed for pain or breathlessness, ativan as needed for anxiety or agitation -can continue HFNC for comfort/oxygenation -had extensive meeting with her best friend and Jessica HAMEED at bedside, , son, nephew and his , and [id number]--> all in agreement to move forward with FRONT OFFICE AGENT -appreciate Palliative care consult Hypothyroidism can dc levothyroxine in transition to FRONT OFFICE AGENT Atrial fibrillation-currently in a regular rhythm but tachyc due to resp distress dc metoprolol Anticoagulant was discontinued on previous hospitalization in the setting of recent hemoptysis CAD dc metoprolol GERD dc PPI Pleural effusion-as above -appreciate Thoracic Surgery management DVT prophylaxis -can remove SCDs CODE STATUS DNR/DNI FRONT OFFICE AGENT Expect her to pass away in the next 24-48 hours (2) Metastatic disease: (3) Constipation: (4) COPD (chronic obstructive pulmonary disease): (5) Pleural effusion: (6) Bilateral lung cancer: (7) Primary small cell malignant neoplasm of lung, stage 4: (8) Atrial fibrillation: (9) HLD (hyperlipidemia): (10) Anxiety: Subjective Pt was much more dyspneic this MA. I saw her 4 times throughout the day and spent a total of 80 minutes with her today in discussing end of life care and goals, discussion with Thoracic Surgery, Palliative Care, and staff submarine warfare officer. Pt was quite weak, looked to be in respiratory distress. Her best friend Jessica was at her bedside and she designated her to be her HCPOA. She decided she did not want to be intubated or wear a BiPAP, but was ok with trying HFNC. Her CXR looked much worse today but there was not enough fluid onthe right with bedside US to perform thoracentesis as per Dr. Steele. We decided together to trial IV steroids and IV abx along with the HFNC fo rher atelectasis, probable mucus plugging. Pt is unable to produce a cough response as she is so weak. But pt told me that if those methods weren't helping, she would want to transition to FRONT OFFICE AGENT. Several hours later, I was called back to the bedside as pt had an acute hypoxic event to the 70s and was cyanotic, appeared struggling to breathe or trying to cough. We got her settled back into bed from a seated on the side of the bed position, and after she rested, her sats came back up to the 90s. At this point, we gathered all her family and friends around and discussed transition to FRONT OFFICE AGENT. Lacey from Palliative Care was with me as well and family and Jessica decided to remove the steroids, IV abx, and give her lorazepam and morphine as needed for comfort. At this point, she was completely obtunded and was not responding to questions. Review of Systems Review of Systems: All systems reviewed & are unremarkable except as noted in HPI & below Physical Exam Constitutional: + acute distress (initially, then later was comfortbale on HFNC with ativan), + ill appearing and + cachectic Eyes: PERRL, conjunctivae normal, anicteric sclerae ENMT: Ears: no hearing impairment Mouth: + oropharynx abnormality (White exudate on tongue) Neck: trachea midline, no thyromegaly Respiratory: + labored breathing Auscultation: + diminished lung sounds (bibasilar) and + crackles (At the bases bilaterally); no wheezes Cardiovascular: Rate/Rhythm: regular rhythm and + tachycardic Extremities: no edema Gastrointestinal (Abdomen): normal bowel sounds, soft, nontender, no hepatosplenomegaly Musculoskeletal: Extremities: extremities normal to inspection; no cyanosis and no clubbing Skin: no rashes, warm and dry Neurologic: + obtunded Psychiatric: Orientation: oriented x 3 (initially, then later became obtunded) Genitourinary: Nguyen in place with pink tinged urine Results & Data Diagnostic Findings CXR image personally reviewed by me and appears to have worsening pleural effusion and infiltrate on the right XR chest 1V portable HISTORY: Shortness of breath. Lung cancer. COMPARISON: Chest 07/12/2018. FINDINGS: The left-sided chest tube remains unchanged in position. No definite pneumothorax. The partially loculated left pleural effusion has significantly improved. Small right pleural effusion persists. Bilateral airspace opacities remain unchanged. The heart is stable in size. Postoperative changes and abdominal surgical clips persist. Left-sided Port-A-Cath terminates in the distal SVC. This remains unchanged. Calcified mediastinal lymph nodes. IMPRESSION: 1. Improvement in the loculated left pleural effusion. The left-sided chest tube is unchanged in position. 2. Bilateral airspace opacities/edema persists. 3. Small right pleural effusion, unchanged. 4. No pneumothorax. (1) COPD (chronic obstructive pulmonary disease) COPD type: unspecified COPD Qualified Code(s): J44.9 - Chronic obstructive pulmonary disease, unspecified (2) Atrial fibrillation Atrial fibrillation type: chronic Qualified Code(s): I48.2 - Chronic atrial fibrillation (3) HLD (hyperlipidemia) Hyperlipidemia type: unspecified Qualified Code(s): E78.5 - Hyperlipidemia, unspecified
[2018-07-15] MEDS ORDERED: SCOPOLAMINE 1.5 MG TDSY TD SCH (08:30)
--- NOTE | 2018-07-15 09:29 | Palliative Care Progress Note ---
Date of Service July 15, 2018 Assessment & Plan (1) Goals of care, counseling/discussion: -Patient previously known to the palliative care service. 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 -Now comfort measures only. -patient remains obtunded today. Appears comfortable and has not required morphine so far today. -Family at bedside: Casey, son, and [id number] Alee. Discussed at length about symptom management, signs of end-of-life including respiratory changes. All questions/concerns answered. -Continue with morphine as needed for pain or SOB. -Please contact me with any needs. (2) Constipation: (3) Pleural effusion: (4) Primary small cell malignant neoplasm of lung, stage 4: (5) Acute on chronic diastolic (congestive) heart failure: (6) Acute respiratory failure with hypoxia and hypercapnia: (7) Severe protein-calorie malnutrition: Subjective Patient is obtunded and appears comfortable. No s/s distress or pain. Family at bedside. Review of Systems Review of Systems: Unobtainable due to cognitive status Physical Exam Constitutional: + ill appearing, + thin and + cachectic; no acute distress Neck: normal visual inspection Respiratory: + uses accessory muscles; not tachypneic Auscultation: + diminished lung sounds; no rhonchi Cardiovascular: RRR, no murmur, no edema Neurologic: + obtunded Psychiatric: Orientation: + not alert Time Spent Midlevel 70 minutes with >50% of time spent at bedside with patient and family discussing SPORTS MARKETING SPECIALIST and EOL issues.
[2018-07-15] MEDS ORDERED: VANCOMYCIN TROUGH ONE (13:30)
[2018-07-15] MEDS ORDERED: CHECK SCOPOLAMINE PATCH PLACEMENT SCH (16:00)
--- NOTE | 2018-07-15 16:23 | Death Summary ---
Date of Service date of admission - July 11, 2018 Pronouncement Note Date and Time of Date of : 07/15/18 Time of : 15:10 PCOD Preliminary cause of : Small cell carcinoma of lung Contributing Factors (1) Goals of care, counseling/discussion: (2) Constipation: (3) Pleural effusion: (4) Primary small cell malignant neoplasm of lung, stage 4: (5) Acute on chronic diastolic (congestive) heart failure: (6) Acute respiratory failure with hypoxia and hypercapnia: (7) Severe protein-calorie malnutrition: (8) Hypothyroidism: (9) Atrial fibrillation: (10) Asthma: (11) CAD (coronary artery disease): (12) Pneumonia: Summary Additional details: 68yo female with progressive stage 4 small cell lung cancer with numerous hospitalizations over the last few months due to her lung cancer, malignant pleural effusions, failure to thrive, etc. She was just released on July 09 after having been hospitalized for hemoptysis likely related to her malignancy. Since that discharge she had been experiencing severe nausea. On day of admission she had vomited 5 times. Following admission she developed acute hypoxic/hypercarbic respiratory failure requiring escalating amounts of FiO2. She ultimately needed high-flow NC. She was seen by Dr. Walt Steele who had been managing her pleurX catheter and it was felt that the pleurX was not draining. Attempts were made to unclog the catheter with TPA. Additionally it became apparent as her hospital stay went on that she had some form of pneumonia process. The patient continued to decline and ultimately became obtunded. Palliative care was consulted who knew her well from prior stays. At that time multiple family members were all in agreement to initiate comfort care measures. She was initiated on a palliative/comfort care pathway and she peacefully on 07/15/18. Additional Data Confirmation of : no pulse, no respirations, no heart sounds and pupils fixed and dilated Family: at bedside Attending/PCP notified?: Yes Attending physician: Darrell Guerin Was code activated?: No Autopsy requested?: No budget examiner notified?: No Organ bank notified?: No
== END 2018-07-15 15:10 | disposition expired | DRG 180 ==
LOC: ED 18:21 → 4E 07-11 01:16 → SUATTDRO 07-11 01:16 → 4E 07-11 02:18
DX: J98.11 Atelectasis; R11.2 Nausea with vomiting, unspecified; Z79.899 Other long term (current) drug therapy; I50.33 Acute on chronic diastolic (congestive) heart failure; I48.91 Unspecified atrial fibrillation; E78.5 Hyperlipidemia, unspecified; E43 Unspecified severe protein-calorie malnutrition; K59.00 Constipation, unspecified; J96.01 Acute respiratory failure with hypoxia; J96.02 Acute respiratory failure with hypercapnia; T85.698A Other mechanical complication of other specified internal prosthetic devices, implants and grafts, initial encounter; C34.90 Malignant neoplasm of unspecified part of unspecified bronchus or lung; Z66 Do not resuscitate; F41.9 Anxiety disorder, unspecified; Y82.8 Other medical devices associated with adverse incidents; Y84.8 Other medical procedures as the cause of abnormal reaction of the patient, or of later complication, without mention of misadventure at the time of the procedure; K21.9 Gastro-esophageal reflux disease without esophagitis; J44.1 Chronic obstructive pulmonary disease with (acute) exacerbation; J90 Pleural effusion, not elsewhere classified; E03.9 Hypothyroidism, unspecified; E11.9 Type 2 diabetes mellitus without complications; I25.10 Atherosclerotic heart disease of native coronary artery without angina pectoris